=== PATIENT | male | born 1940 | race Caucasian/White ===

== ENCOUNTER 2024-06-17 16:19 | Emergency (ER) | payer MEDICARE, SELFPAY ==
--- NOTE | ~2024-06-17 | XR_ITS ---
EXAM: XR elbow RT min 3V DATE: 06/17/2024 18:49 HISTORY: fall, POSTERIOR LACERATION TO ELBOW . COMPARISON: None available. FINDINGS: Normal mineralization. No fracture or dislocation. No lytic or blastic lesion. Mild degene rative change at the elbow joint. Medial and lateral enthesopathy. No erosion or periosteal change. A nterior displacement of the anterior fat pad. IMPRESSION: Elbow joint effusion, which can accompany occult fractures, likely radial head in a patie nt of this age. Reviewed, dictated and finalized at location K. LOPMENT DIRECTOR IMPRESSION: Elbow joint effusion, which can accompany occult fractures, likely radial head in a patient of this age.
--- NOTE | ~2024-06-17 | CT_ITS ---
EXAMINATION: CT brain wo con DATE: 06/17/2024 18:54 INDICATION: Fall . TECHNIQUE: Computed tomography (CT) of the head was performed without intravenous contrast. The mA wa s adjusted according to patient size. Iterative reconstruction technique was employed. The dose-lengt h product was 681.00 mGy-cm. COMPARISON: 05/20/2024. FINDINGS: No acute intracranial hemorrhage or extra-axial fluid collection. No hydrocephalus, mass, or herniation. No acute ischemic infarct. Unremarkable dural venous sinus attenuation. No acute osseous abnormality. Minimal bilateral maxillary mucosal thickening, the remaining aerated spaces are clear. Moderate atrophy and chronic white matter change. Atherosclerotic intracranial calcification. Bilater al lens replacements. IMPRESSION: No acute intracranial process. Reviewed, dictated and finalized at location K. H PASTOR
--- NOTE | ~2024-06-17 | CT_ITS ---
EXAMINATION: CT facial & cervical spine wo DATE: 06/17/2024 18:54 INDICATION: Fall TECHNIQUE: Computed tomography (CT) of the maxillofacial region and cervical spine was performed with out intravenous contrast. Automated exposure control and iterative reconstruction technique were empl oyed. The dose-length product was 495.96 mGy-cm. COMPARISON: None FINDINGS: CERVICAL: Vertebral Body Alignment: Minimal grade 1 anterolisthesis at C4-5, presumably secondary to degenerati ve changes. Craniocervical and atlantoaxial alignment: Moderate degenerative change. Alignment intact. Osseous structures/fracture: No evidence of a lytic or blastic process in the visualized spine. No e vidence of acute fracture. Cervical soft tissues: The paraspinal soft tissues planes are maintained. Degenerative changes: Multilevel severe degenerative disc disease and moderate facet arthropathy. Sev ere bilateral neural foraminal narrowing at C3-4, and left-sided C4-5 neural foraminal narrowing, sec ondary to degenerative changes. No severe central canal narrowing. FACE: Soft Tissues: Moderate soft tissue swelling. Mild left frontal soft tissue swelling. Facial bones: Mildly comminuted and depressed nasal bone fractures. No lytic or blastic process. Eyes: Right lens replacement. The globes are intact. The soft tissue planes of the orbits are mainta ined. Paranasal Sinuses: Bilateral inferior maxillary mucosal thickening. Foreign Bodies: No radiopaque foreign bodies. Other Findings: None. IMPRESSION: No acute fracture or traumatic malalignment in the cervical spine. Mildly depressed nasal bone fractures. Reviewed, dictated and finalized at location K. OR WEB DEVELOPER
--- NOTE | ~2024-06-17 | CT_ITS ---
CT OF right elbow EXAMINATION: CT elbow RT wo con DATE: 06/17/2024 20:54 INDICATION: Evaluate for occult fracture. TECHNIQUE: Computed tomography (CT) of the right elbow was performed without intravenous contrast. Au tomated exposure control and iterative reconstruction technique were employed. The dose-length produc t was 500.99 mGy-cm. COMPARISON: X-ray right elbow, same date FINDINGS: Mild osteopenia. No fracture or dislocation. Minimal chronic appearing fragmentation along the latera l epicondyle. Mild subcutaneous edema along the posterior aspect of the elbow. The tip of the olecran on process is not completely included in the [id number], but there was no abnormality in the prior radiographs. No definite joint effusion. Prominent anterior fat pad, which is not displaced. IMPRESSION: No acute osseous finding in the right elbow. No definite joint effusion. The prior radiographic findings were likely related to a prominent anteri or fat pad and slight obliquity in the lateral view. Reviewed, dictated and finalized at location K. OPERATOR IMPRESSION: No acute osseous finding in the right elbow. No definite joint effusion. The prior radiographic findings were likely related to a prominent anterior fat pad and slight obliquity in the lateral view.
[2024-06-17 16:26] VITALS: BP 143/60; PULSE 70; RESP 20; TEMP 36.8; O2SAT 100
[2024-06-17 19:04] VITALS: BP 189/79; O2SAT 100
--- NOTE | 2024-06-17 19:08 | ED_ITS ---
HPI - Fall General Chief Complaint: Fall Stated Complaint: Fall - HI, right elbow pain Time Seen by Provider: 06/17/24 18:48 History of Present Illness HPI Narrative: 84-year-old male presents to the ED by son from [facility] for ground level fall that occurred earlier today. Patient's son and daughter at bedside and assist with history. States patient was in his bedroom when he tripped and fell. Patient states he did hit his head but did not lose consciousness. He is present with abrasions to his forehead, ecchymosis to the bridge of his nose, dried blood in his bilateral nares and a skin tear to his right elbow. He denies current pain at this time including neck pain, back pain, headache, vision changes, focal numbness or weakness or extremity injury. He is not anticoagulated. Tdap unknown. Related Data Allergies Allergy/AdvReac Type Severity Reaction Status Date / Time No Known Allergies Allergy Unknown Unverified 07/15/18 12:15 Review of Systems 2 Review of Systems: All systems reviewed & are unremarkable except as noted in HPI and below PMFSH Past Medical History Medical History Normal pressure hydrocephalus Surgical History Surgical History History of back surgery Social History Social History Living arrangements: long term Additional living arrangements comments: [facility] since end of April 2024; previously living independently at home Exam Narrative: GENERAL: Well-appearing, well-nourished, and in no acute distress. HEAD: Normocephalic. Two abrasions to the left forehead, no bleeding EYES: PERRLA and EOMI. ENT: mucous membranes moist. Ecchymosis to the bridge of the nose with no lacerations or abrasions. Dried blood in bilateral nares with no evidence of septal hematoma. No active epistaxis. No crepitus or deformity to the nose. Tenderness to the nose. Tenderness to orbits or remainder of facial bones NECK: no midline cervical spinous tenderness, step-offs or deformities BACK: no midline thoracolumbar spinous tenderness, step-offs or deformities CHEST: Clear to auscultation. No respiratory distress. no tenderness to chest wall HEART: Regular rate and rhythm. No murmur heard. Normal peripheral pulses. ABDOMEN: Soft, nontender, nondistended, normal active bowel sounds. EXTREMITIES: Normal range of motion. No edema. No tenderness bilateral upper lower extremities with full range of motion SKIN: 5 cm superficial skin tear to the right elbow with full active and passive range of motion of the elbow, no deep structures or foreign bodies visualized. Bleeding is controlled. Radial pulse 2 +. Sensation intact. NEURO: No focal deficits. Alert and oriented x3 Course Vital Signs Vital signs: Vital Signs Temperature 98.3 F 06/17/24 16:26 Pulse Rate 70 06/17/24 16:26 Respiratory Rate 20 06/17/24 16:26 Blood Pressure 143/60 H 06/17/24 16:26 Pulse Oximetry 100 06/17/24 16:26 Oxygen Delivery Room Air 06/17/24 16:26 Temperature 98.3 F 06/17/24 16:26 Pulse Rate 70 06/17/24 16:26 Respiratory Rate 20 06/17/24 16:26 Blood Pressure 143/60 H 06/17/24 16:26 Pulse Oximetry 100 06/17/24 16:26 Oxygen Delivery Room Air 06/17/24 16:26 MDM - Fall MDM Narrative Medical decision making narrative: 84-year-old male presents to the ED with son and daughter at bedside from [facility] for a ground level mechanical fall that occurred this afternoon. See HPI for further history. Vitals are stable. Patient is neurovascularly intact. He did hit his head but did not lose consciousness. He is not a nticoagulated. Exam is significant for the above. CT brain and cervical spine are unremarkable. CT facial bones show mildly depressed nasal bone fractures. There is no evidence of septal hematoma on exam. No active epistaxis. No evidence of open fracture. X-ray of the elbow shows an elbow joint effusion which can accompany occult fractures likely radial head in a patient of this age. CT obtained for further evaluation which shows no acute osseous finding in the right shoulder. There is no definitive joint effusion. The prior radiograph findings were likely related to prominent anterior fat pad and slight obliquity and lateral views. Patient and family updated on workup. Tdap updated. Skin tear to the elbow clean and closed with Steri-Strips with no complications. Patient will be discharged back to assisted living facility. ED return precautions provided. They are agreeable with the plan and verbalized understanding. Discharged in stable condition. Discharge Plan Discharge Clinical Impression: Skin tear Closed head injury Qualifiers: Encounter type: initial encounter Qualified Code(s): S09.90XA - Unspecified injury of head, initial encounter Fracture of nasal bone Qualifiers: Encounter type: initial encounter Fracture type: closed Qualified Code(s): S02.2XXA - Fracture of nasal bones, initial encounter for closed fracture Patient Disposition: NH Assisted/Asst Living Condition: Stable Instructions: Antibiotic Form, Nasal Fracture (ED), Head Injury (DC), Skin Tear (ED) Additional Instructions: Your evaluated in the emergency department for a fall. The CT of your head and neck are unremarkable. The imaging of your elbow shows no broken bones. Unfortunately you do have fractures of your nasal bones. Please follow-up with the Ear Nose and Throat doctor regarding this. Take Tylenol as directed on the bottle as needed for pain. Return to the emergency department if you develop redness around her skin tear, fever, drainage, Seizure-like activity, loss of consciousness or altered mental status,or other concerning symptoms. Follow-up/Referrals: Crystal,Sohan Reynolds MD [Primary Care Provider] - Nate Fowler MD [Physician] - 1 Day
[2024-06-17 19:16] VITALS: BP 184/82; O2SAT 100
[2024-06-17] MEDS: TETANUS,DIPHTHERIA,AC PERTUSSIS ADULT (0.5 ML) BOOSTRIX IM (19:43)
[2024-06-17 21:33] VITALS: BP 190/88; O2SAT 100
== END 2024-06-17 21:56 ==
PROVIDERS: Emergency Provider Physician Assistant; PCP Family Medicine
DX: S02.2XXA Fracture of nasal bones, initial encounter for closed fracture (principal); S51.011A Laceration without foreign body of right elbow, initial encounter; Z23 Encounter for immunization; G91.2 (Idiopathic) normal pressure hydrocephalus; W01.0XXA Fall on same level from slipping, tripping and stumbling without subsequent striking against object, initial encounter
CPT/HCPCS: 70450; 70486; 72125; 73080; 73200; 90471; 90715; 99284

== ENCOUNTER 2024-06-23 21:45 | Inpatient (IN) | payer MEDICARE, SELFPAY ==
--- NOTE | ~2024-06-23 | CT_ITS ---
EXAMINATION: CT abdomen pelvis wo con DATE: 06/24/2024 03:37 INDICATION: Hematuria. TECHNIQUE: Computed tomography (CT) of the abdomen and pelvis was performed without intravenous contr ast. Automated exposure control and iterative reconstruction technique were employed. The dose-length product was 342.37 mGy-cm. COMPARISON: CT abdomen and pelvis 05/20/2024 FINDINGS: The visualized portions of the lung bases demonstrate mild atelectasis. No pleural effusion . The heart size is normal. There are coronary artery calcifications. No pericardial or a fusion. The liver and spleen are normal. There are gallstones in the gallbladder, which is normal in size. The p ancreas, adrenal glands, and left kidney are normal. There is a 1.7 cm cyst in right kidney. There is no urolithiasis. The bladder is decompressed by a Gilmore catheter. Bladder wall thickening is noted. The prostate is mildly enlarged. There are brachytherapy seeds in the prostate. There is diverticulos is of the colon without evidence of diverticulitis. The appendix is normal. There is calcified athero sclerosis of the aorta and many of the other arteries. There are no pathologically enlarged lymph nod es. There is no free intraperitoneal fluid. There are bilateral inguinal hernias containing fat. Ther e is severe lumbar spondylosis. There is mild chronic anterior wedging of multiple vertebral bodies. Thoracic dextroscoliosis is noted. IMPRESSION: 1. Bladder wall thickening, which may be secondary to cystitis or chronic outlet obstruction. 2. Bilateral inguinal hernias containing fat. Reviewed, dictated and finalized at location A. RAL PROFESSIONAL IMPRESSION: 1. Bladder wall thickening, which may be secondary to cystitis or chronic outle t obstruction. 2. Bilateral inguinal hernias containing fat.
--- NOTE | ~2024-06-23 | US_ITS ---
EXAMINATION: US pelvic limited DATE: 06/27/2024 12:34 INDICATION: recurrent hematuria . TECHNIQUE: Grayscale and Doppler ultrasound images of the bladder were obtained. COMPARISON: None. FINDINGS: Directed examination of the urinary bladder reveals a Gilmore catheter balloon in good positi on. The clip bladder is collapsed around the Gilmore catheter. No intraluminal contents identified. Baltazar dder wall measures 3 mm. IMPRESSION: Urinary bladder decompressed by Gilmore catheter, which limits evaluation. Consider repeat examination with the Gilmore clamped. Reviewed, dictated and finalized at location K. ENGINEER IMPRESSION: Urinary bladder decompressed by Gilmore catheter, which limits evaluation. Consid er repeat examination with the Gilmore clamped.
--- NOTE | ~2024-06-23 | US_ITS ---
US pelvic limited 06/28/2024 12:52 Indication: Bladder outlet evaluation. Procedure: High-resolution ultrasound of the pelvis using transabdominal technique Comparison: No prior studies for comparison. Findings: There is a Gilmore catheter present in the bladder. Bladder is somewhat decompressed although bladder wall is mildly prominent measuring 4 mm. No focal bladder mass or debris is visualized. Impression: 1: Incompletely distended bladder containing Gilmore catheter. Cannot exclude bladder wall thickening. No focal bladder mass or significant debris. Reviewed, dictated and finalized at location B. TE ADMINISTRATOR Impression: 1: Incompletely distended bladder containing Gilmore catheter. Cannot exclude chauncey dder wall thickening. No focal bladder mass or significant debris.
[2024-06-23 21:46] VITALS: BP 162/58; PULSE 73; RESP 15; TEMP 37.3; O2SAT 100
[2024-06-24 03:29] LABS: Basophils Absolute Auto 0.1 K/mm3 (0.0-0.1); Basophils Percent Auto 0.8 % (0.2-1.2); Eosinophils Absolute Auto 0.3 K/mm3 (0-0.3); Eosinophils Percent Auto 4.8 % (0-4.4); Hematocrit 32.1 % (42.0-52.0); Hemoglobin 10.7 g/dL (14.0-18.0); Immature Granulocyte Absolute 0.01 K/mm3 (0.00-0.031); Immature Granulocyte Percent A 0.2 % (0-0.5); Lymphocytes Percent Auto 19.3 % (18.3-44.2); Mean Corpuscular HGB Conc 33.3 g/dl (32-36); Mean Corpuscular Volume 96.1 fl (80-100); Mean Platelet Volume 9.1 fl (7.4-10.4); Monocytes Absolute Auto 0.5 K/mm3 (0.1-0.6); Monocytes Percent Auto 8.4 % (2.6-8.5); Neutrophils Absolute Auto 4.1 K/mm3 (1.3-6.7); Neutrophils Percent Auto 66.5 % (45.5-73.1); Platelet Count Result 189 k/mm3 (150-375); Red Blood Count 3.34 M/mm3 (4.6-6.20); Red Cell Distribution Width 12.8 % (11.5-14.5); White Blood Count 6.2 K/mm3 (4.5-10.0)
[2024-06-24 03:39] LABS: Alanine Aminotransferase 22 U/L (6-50); Alkaline Phosphatase 58 U/L (38-126); Anion Gap 7 mmol/L (4-12); Aspartate Amino Transferase 32 U/L (17-59); Bilirubin,Total 0.6 mg/dL (0.2-1.3); Blood Urea Nitrogen 15 mg/dL (9-20); Carbon Dioxide 27 mmol/L (22-30); Chloride 101 mmol/L (98-107); Estimated CRCL calculation 50 ml/min; Estimated Glomerular Filt Rate > 60; Glucose 109 mg/dL (65-110); Potassium 3.6 mmol/L (3.4-5.0); Sodium 135 mmol/L (137-145)
[2024-06-24 03:42] LABS: Bacteria Urine Rare /hpf; Need Manual Microscopic Reviewed; Non Pathogenic Casts 0-2; RBC Urine >100 /hpf (0-2); Squamous Epithelial Cell Urine Many /hpf (Few); WBC Urine >100 /hpf (0-3)
[2024-06-24 03:43] LABS: Add Urine Microscopic? YES; Appearance Urine Turbid (Clear); Bilirubin Urine 1+ (Negative); Blood Urine 3+ (Negative); Color Urine Red (Yellow); Glucose Urine UA Negative (Negative); Ketones Urine Negative (Negative); Leukocyte Esterase Ur 3+ LEU/UL (Negative); Nitrate Urine Positive (Negative); Protein Urine 3+ mg/dL (Negative); Specific Grav Ur 1.012 (1.001-1.035); Urobilinogen Urine 0.2 mg/dL (<2.0); pH Urine 6.5 (5.0-9.0)
[2024-06-24 03:45] LABS: INR 1.1; Prothrombin Time 14.5 Seconds (11.1-14.7)
[2024-06-24 03:46] LABS: Partial Thromboplastin Time 31.5 Seconds (22.3-36.8)
[2024-06-24] MEDS: WATER FOR IRRIGATION, STERILE 500 ML BOTTLE ×2 (04:41→05:31)
--- NOTE | 2024-06-24 05:34 | ED.GENADULT ---
HPI - General Adult General Chief complaint: Urogenital-Male Stated complaint: hematuria, frequency Time Seen by Provider: 06/24/24 02:51 History of Present Illness HPI narrative: Patient is 84-year-old gentleman who presents emergency department chief complaint of hematuria. Patient reports that he started having urinary frequency recently and then started having blood in his urine the patient reports was bright red blood reports no to minimal clots present the patient reports that he is still able to urinate but has not issues with incontinence. Related Data Allergies Allergy/AdvReac Type Severity Reaction Status Date / Time No Known Allergies Allergy Unknown Verified 06/23/24 21:46 Review of Systems Review of Systems: A 10 system review of systems was completed on the patient and is negative except for what is stated in the HPI. Nursing and ancillary documentation was reviewed. [facility] Past Medical History Medical History Normal pressure hydrocephalus Surgical History Surgical History History of back surgery Social History Social History Living arrangements: [facility] Additional living arrangements comments: [facility] since end of April 2024; previously living independently at home Exam Narrative: GENERAL: Well-appearing, well-nourished, and in no acute distress. HEAD: Normocephalic, atraumatic. EYES: PERRLA and EOMI. ENT: Nares clear, no rhinorrhea or epistaxis. Mucous membranes moist. NECK: Supple. CHEST: Clear to auscultation. No respiratory distress. HEART: Regular rate and rhythm. No murmur heard. Normal peripheral pulses. ABDOMEN: Soft, nontender, nondistended, normal active bowel sounds. : Normal external male genitalia no signs of trauma EXTREMITIES: Normal range of motion. No edema. SKIN: Warm, dry, no rash. NEURO: No focal deficits. Alert and oriented x3. PSYCH: Normal mood and affect. Course Vital Signs Vital signs: Vital Signs Temperature 37.3 C 06/23/24 21:46 Pulse Rate 73 06/23/24 21:46 Respiratory Rate 15 06/23/24 21:46 Blood Pressure 162/58 H 06/23/24 21:46 Pulse Oximetry 100 06/23/24 21:46 Oxygen Delivery Room Air 06/23/24 21:46 Temperature 37.3 C 06/23/24 21:46 Pulse Rate 73 06/23/24 21:46 Respiratory Rate 15 06/23/24 21:46 Blood Pressure 162/58 H 06/23/24 21:46 Pulse Oximetry 100 06/23/24 21:46 Oxygen Delivery Room Air 06/23/24 21:46 Medical Decision Making MDM Narrative Medical decision making narrative: Differential diagnosis includes hematuria, UTI, CT scan showed no evidence of large clot the bladder. There was evidence thickening of the bladder wall consistent cystitis Urinalysis showed greater than 100 whites and greater than 100 reds And initial Gilmore was placed and was irrigated the patient still having for punch colored urine with small clots The case was discussed with urology on-call who recommended CBI and the patient will be admitted to the hospitalist service with Urology consult. Patient was also started on Rocephin since there was greater than 100 white blood cells in the urine. Vital Signs Vital Signs: Vital Signs Temperature 37.3 C 06/23/24 21:46 Pulse Rate 73 06/23/24 21:46 Respiratory Rate 15 06/23/24 21:46 Blood Pressure 162/58 H 06/23/24 21:46 Pulse Oximetry 100 06/23/24 21:46 Oxygen Delivery Room Air 06/23/24 21:46 Temperature 37.3 C 06/23/24 21:46 Pulse Rate 73 06/23/24 21:46 Respiratory Rate 15 06/23/24 21:46 Blood Pressure 162/58 H 06/23/24 21:46 Pulse Oximetry 100 06/23/24 21:46 Oxygen Delivery Room Air 06/23/24 21:46 Lab Data 06/24/24 03:23 06/24/24 03:23 Labs: Lab Results 06/24/24 Range/Units 03:23 WBC 6.2 (4.5-10.0) K/mm3 RBC 3.34 L (4.6-6.20) M/mm3 Hgb 10.7 L (14.0-18.0) g/dL Hct 32.1 L (42.0-52.0) % MCV 96.1 (80-100) fl MCH 32.0 (26-34) pg MCHC 33.3 (32-36) g/dl RDW 12.8 (11.5-14.5) % Plt Count 189 (150-375) k/mm3 MPV 9.1 (7.4-10.4) fl Immature Gran % (Auto) 0.2 (0-0.5) % Neut % (Auto) 66.5 (45.5-73.1) % Lymph % (Auto) 19.3 (18.3-44.2) % [place] % (Auto) 8.4 (2.6-8.5) % Eos % (Auto) 4.8 H (0-4.4) % Baso % (Auto) 0.8 (0.2-1.2) % Lymph # (Auto) 1.20 (0.9-3.2) K/mm3 [place] # (Auto) 0.5 (0.1-0.6) K/mm3 Eos # (Auto) 0.3 (0-0.3) K/mm3 Baso # (Auto) 0.1 (0.0-0.1) K/mm3 Abs Immat Gran (auto) 0.01 (0.00-0.031) K/mm3 Absolute Neuts (auto) 4.1 (1.3-6.7) K/mm3 Absolute Nucleated RBC 0.000 (0.0-0.012) K/mm3 Nucleated RBC % 0.0 (0.0-0.2) % PT 14.5 (11.1-14.7) Seconds INR 1.1 APTT 31.5 (22.3-36.8) Seconds Sodium 135 L (137-145) mmol/L Potassium 3.6 (3.4-5.0) mmol/L Chloride 101 (98-107) mmol/L Carbon Dioxide 27 (22-30) mmol/L Anion Gap 7 (4-12) mmol/L BUN 15 D (9-20) mg/dL Creatinine 1.00 (0.7-1.3) mg/dL Estim Creat Clear Calc 50 ml/min Estimated GFR > 60 (59 - ) Glucose 109 (65-110) mg/dL Calcium 9.0 (8.4-10.2) mg/dL Total Bilirubin 0.6 (0.2-1.3) mg/dL AST 32 (17-59) U/L ALT 22 (6-50) U/L Alkaline Phosphatase 58 (38-126) U/L Total Protein 7.0 (6.3-8.2) g/dL Albumin 4.0 (3.5-5.1) g/dL Urine Color Red H (Yellow) Urine Appearance Turbid H (Clear) Urine pH 6.5 (5.0-9.0) Ur Specific [place] 1.012 (1.001-1.035) Urine Protein 3+ H (Negative) mg/dL Urine Glucose (UA) Negative (Negative) mg/dL Urine Ketones Negative (Negative) mg/dL Ur Blood (Man) 3+ H (Negative) Urine Nitrate Positive H (Negative) Urine Bilirubin 1+ H (Negative) Urine Urobilinogen 0.2 (<2.0) mg/dL Add Ur Microanalysis Reviewed Leukocyte Esterase Rfl 3+ H (Negative) NEAL/UL Urine RBC >100 H (0-2) /hpf Urine WBC >100 H (0-3) /hpf Ur Squamous Epith Cells Many H (Few) /hpf Urine Bacteria Rare /hpf Urine Casts 0-2 Discharge Plan Discharge Clinical Impression: Hematuria, Urinary tract infection Patient Disposition: Still a Patient Condition: Stable Follow-up/Referrals: PHYSICIAN NOT ON STAFF,NONSTAFF [Primary Care Provider] - Time of Disposition: 05:43
[2024-06-24 06:09] VITALS: BP 142/90; PULSE 80; RESP 15; O2SAT 100
[2024-06-24] MEDS: MORPHINE SULFATE (*CRX) 2 MG/ML INJ IV PUSH ×2 (06:19→15:37)
[2024-06-24 07:06] LABS: Hematocrit 33.2 % (42.0-52.0); Hemoglobin 11.1 g/dL (14.0-18.0)
[2024-06-24 07:28] VITALS: BP 182/91; PULSE 83; RESP 20; TEMP 36.6; O2SAT 98
[2024-06-24 08:45] VITALS: BP 198/70; PULSE 89; RESP 16; TEMP 36.8; O2SAT 100
[2024-06-24 08:49] VITALS: BMI 22.1
--- NOTE | 2024-06-24 08:49 | P.HP_ITS ---
H&P: HPI History of Present Illness Date/Time: 06/24/24 08:49 Chief Complaint: Hematuria Narrative: This is an 84 year old male with a significant past medical history of normal pressure hydrocephalus, prostate cancer hyperlipidemia, anxiety, insomnia, sleep apnea, history of rheumatic fever without heart involvement, asthma, GERD, osteoporosis, arthritis, hypertension who presented to the hospital from [facility] with report of hematuria. Most of presenting illness was obtained from the medical record as patient is non-contributory and son who is at bedside is not a good historian for his medical information. According to chart it was reported that he was having urinary frequency and then started noticing blood in his urine. No other information was provided. Work up in the hospital included an abdomen/pelvis CT without contrast which revealed bladder wall thickening, which may be cystitis versus chronic outlet obstruction, bilateral inguinal hernias containing fat. Initial labs revealed a normal WBC 6.2, Hgb 10.7, Na+ 135, otherwise unremarkable. UA shown red colored urine with a turbid appearance, 3+ urine protein, 3+ urine blood, positive nitrate, 1+ urine bilirubin, 3+ leukocytes, >100 urine RBC, > 100 urine WBC, many urine squamous epithelial cells, rare bacteria. Urine culture was obtained and pending. Patient Had thompson catheter placed and flushed with small blood clots returning, given Morphine, and started on Rocephin while in the ER. Urology consulted. Review of Systems Review of Systems: ROS unobtainable: Yes unobtainable due to mental status PMFSH Past Medical History Medical History Anxiety Arthritis Asthma Dementia GERD (gastroesophageal reflux disease) Hyperlipidemia Hypertension Insomnia Normal pressure hydrocephalus Osteoporosis Prostate cancer Rheumatic fever without heart involvement Sleep apnea Surgical History Surgical History History of back surgery Social History Social History Smoking status: Never smoker Alcohol intake: never Substance use: never Substance use type: does not use Do You Feel Safe in your Home?: Yes Lack of Transportation: No Lack of Food: Never True Current Housing: I Have Housing Concerned About Future Housing: No Difficulty Paying Gas/Electric Bills: No Difficulty Paying for Meds: No Currently Unemployed: No Education: High School Diploma/GED Difficulty w/ Childcare or Family Care: Decline to Answer Living arrangements: long term Additional living arrangements comments: [facility] since end of April 2024; previously living independently at home Spiritual care concerns: No Meds Home Medications and Allergies Home Medications Medication Instructions Recorded Confirmed Type albuterol sulfate 90 mcg/actuation 2 puff inhalation Q4H PRN Wheezing 06/24/24 06/24/24 History aerosol inhaler atorvastatin 20 mg tablet 20 mg PO HS 06/24/24 06/24/24 History donepezil 10 mg tablet 10 mg PO HS 06/24/24 06/24/24 History escitalopram oxalate 10 mg tablet 10 mg PO DAILY 06/24/24 06/24/24 History finasteride 5 mg tablet 5 mg PO DAILY 06/24/24 06/24/24 History fluticasone furoate 100 1 inh inhalation DAILY 06/24/24 06/24/24 History mcg-vilanterol 25 mcg/dose inhalation powder (Breo Ellipta) loperamide 2 mg capsule 2 mg PO Q6H PRN Diarrhea 06/24/24 06/24/24 History multivitamin with minerals-folic 1 tablet PO DAILY 06/24/24 06/24/24 History acid 0.4 mg tablet omeprazole 20 mg capsule,delayed 20 mg PO DAILY 06/24/24 06/24/24 History release tamsulosin 0.4 mg capsule 0.4 mg PO DAILY 06/24/24 06/24/24 History trazodone 50 mg tablet 50 mg PO HS 06/24/24 06/24/24 History triamcinolone acetonide 0.1 % 1 applic topical DAILY 06/24/24 06/24/24 History topical cream Allergies Allergy/AdvReac Type Severity Reaction Status Date / Time No Known Allergies Allergy Unknown Verified 06/23/24 21:46 Vital Signs Vital Signs - 24 hr 06/23/24 21:46 06/24/24 06:09 06/24/24 07:28 Temperature 99.2 F 97.9 F Pulse Rate 73 80 83 Respiratory Rate 15 15 20 Blood Pressure 162/58 H 142/90 H 182/91 H Pulse Oximetry 100 100 98 Oxygen Delivery Room Air Exam Narrative: General: In no acute distress, well nourished Head: atraumatic, no encephalopathy Eyes:PERRLA, sclera clear, ecchymosis noted below both eyes ENT: moist mucous membranes, nasal passages clear Neck: supple, no JVD, no adenopathy, trachea midline Cardiac: Normal S1 and S2. No murmur, gallops or friction rubs, peripheral pulses intact. Respiratory: Lungs clear to auscultation, no adventitious lung sounds, currently on room air Gastrointestinal: soft, non-distended, non-tender, normoactive bowel sounds. : thompson catheter in place draining pink tinged urine, no clots seen in the bag Extremities: moves all extremities well, no edema, good ROM, strength 5/5 Skin: clean, dry, intact. No wounds or lesions. Neuro: Alert and oriented x2, confused with sitter at bedside, no obvious neuro defects. Psych: normal mood, normal affect, interactive H&P: Results Labs Labs: Short CBC 06/24/24 06/24/24 Range/Units 03:23 06:57 WBC 6.2 (4.5-10.0) K/mm3 Hgb 10.7 L 11.1 L (14.0-18.0) g/dL Hct 32.1 L 33.2 L (42.0-52.0) % Plt Count 189 (150-375) k/mm3 BMP 06/24/24 03:23 Sodium 135 L Potassium 3.6 Chloride 101 Carbon Dioxide 27 BUN 15 D Creatinine 1.00 Glucose 109 Calcium 9.0 Liver Function 06/24/24 Range/Units 03:23 Total Bilirubin 0.6 (0.2-1.3) mg/dL AST 32 (17-59) U/L ALT 22 (6-50) U/L Alkaline Phosphatase 58 (38-126) U/L Albumin 4.0 (3.5-5.1) g/dL Urine 06/24/24 Range/Units 03:23 Urine Color Red H (Yellow) Urine Appearance Turbid H (Clear) Urine pH 6.5 (5.0-9.0) Ur Specific [place] 1.012 (1.001-1.035) Urine Protein 3+ H (Negative) mg/dL Urine Glucose (UA) Negative (Negative) mg/dL Imaging Abdomen/Pelvis CT: Radiologist's impression: EXAMINATION: CT abdomen pelvis wo con DATE: 06/24/2024 03:37 INDICATION: Hematuria. TECHNIQUE: Computed tomography (CT) of the abdomen and pelvis was performed without intravenous contrast. Automated exposure control and iterative reconstruction technique were employed. The dose-length product was 342.37 mGy- cm. COMPARISON: CT abdomen and pelvis 05/20/2024 FINDINGS: The visualized portions of the lung bases demonstrate mild atelectasis. No pleural effusion. The heart size is normal. There are coronary artery calcifications. No pericardial or a fusion. The liver and spleen are normal. There are gallstones in the gallbladder, which is normal in size. The pancreas, adrenal glands, and left kidney are normal. There is a 1.7 cm cyst in right kidney. There is no urolithiasis. The bladder is decompressed by a Thompson catheter. Bladder wall thickening is noted. The prostate is mildly enlarged. There are brachytherapy seeds in the prostate. There is diverticulosis of the colon without evidence of diverticulitis. The appendix is normal. There is calcified atherosclerosis of the aorta and many of the other arteries. There are no pathologically enlarged lymph nodes. There is no free intraperitoneal fluid. There are bilateral inguinal hernias containing fat. There is severe lumbar spondylosis. There is mild chronic anterior wedging of multiple vertebral bodies. Thoracic dextroscoliosis is noted. IMPRESSION: 1. Bladder wall thickening, which may be secondary to cystitis or chronic outlet obstruction. 2. Bilateral inguinal hernias containing fat. Reviewed, dictated and finalized at location [facility]. [facility] Assessment and Plan Assessment and plan (1) Hematuria: Code(s): R31.9 - Hematuria, unspecified Status: Acute Assessment and Plan: * Reporting bright red blood in urine. * UA Showing red turbid urine with 3+ urine protein, 3+ urine blood, positive nitrate, 1+ bilirubin, 3+ leukocyte, greater than 100 urine RBC, greater than 100 urine WBC, many urine squamous epithelial cells seen, rare urine bacteria. * Urine culture was obtained and then * Thompson catheter placed and irrigated while in the ER was small blood clots draining * urology consulted (2) Urinary tract infection: Code(s): N39.0 - Urinary tract infection, site not specified Status: Acute Assessment and Plan: * UA Showing red turbid urine with 3+ urine protein, 3+ urine blood, positive nitrate, 1+ bilirubin, 3+ leukocyte, greater than 100 urine RBC, greater than 100 urine WBC, many urine squamous epithelial cells seen, rare urine bacteria. * urine culture pending * white blood cell count 6.2 * continue Rocephin (3) Normal pressure hydrocephalus: Code(s): G91.2 - (Idiopathic) normal pressure hydrocephalus Status: Acute Assessment and Plan: of note Quality VTE Prophylaxis VTE prophylaxis: mechanical ordered Hospitalist MIPS Advance Care Plan I have confirmed that the patient's Advanced Care Plan is present, code status is documented, or surrogate decision maker is listed in patient medical record.: Yes Medication Reconciliation I have utilized all available resources to obtain, update and review the patients current medications (includes all prescriptions, OTC, herbals, cannabis, and nutritional supplements).: Yes
[2024-06-24 09:38] VITALS: O2SAT 98
[2024-06-24 11:18] LABS: Hematocrit 33.9 % (42.0-52.0); Hemoglobin 11.4 g/dL (14.0-18.0)
[2024-06-24 11:32] LABS: Hemoglobin A1C 5.5 % (<5.7)
--- NOTE | 2024-06-24 12:17 | WPDURCON ---
Assessment and Plan Assessment and plan (1) Urinary tract infection: Code(s): N39.0 - Urinary tract infection, site not specified Status: Acute Assessment and Plan: 1. Agree with hospital medicine admission. 2. Agree with honey elizondo to C&S. 3. Maintain catheter, given son's concern for worsening LUTS in setting of dementia, he may benefit from chronic indwelling catheter. This can be determined as an outpatient. Urology Consult Note HPI Date Seen: 06/24/24 Requesting Physician: Judy Arreaga APRN Primary Care Provider: PHYSICIAN NOT ON STAFF Consult Narrative Narrative: Gulshan Johnston is a 84 year old male admitted to Hospital Medicine Service for UTI. He presented to the ER yeterday evening with hematuria. A 3 way CBI catheter was placed and no significant clot noted either after catheter placement or on CT. CBI is currently off with a catheter plug in the inflow channel. He is confused this morning, however his son says he has significant dementia and is at his baseline. His son reports he has been having increasing frequency and urgency with significant urge incontinence and has had catheters placed at his facility. He was seen 06/06/24 by our MACHINE ADJUSTER LEADER Jordyn Doser, and was started on augmentin at that time, however his culture was negative. He has been on tamsulosin and finasteride. Review of Systems Review of Systems: ROS unobtainable: Yes unobtainable due to mental status (Dementia) [facility] Past Medical History Medical History Normal pressure hydrocephalus Surgical History Surgical History History of back surgery Social History Social History Smoking status: Never smoker Alcohol intake: never Substance use: never Substance use type: does not use Do You Feel Safe in your Home?: Yes Lack of Transportation: No Lack of Food: Never True Current Housing: I Have Housing Concerned About Future Housing: No Difficulty Paying Gas/Electric Bills: No Difficulty Paying for Meds: No Currently Unemployed: No Education: High School Diploma/GED Difficulty w/ Childcare or Family Care: Decline to Answer Living arrangements: fpc Additional living arrangements comments: [facility] since end of April 2024; previously living independently at home Spiritual care concerns: No Meds Home Medications and Allergies Allergies Allergy/AdvReac Type Severity Reaction Status Date / Time No Known Allergies Allergy Unknown Verified 06/23/24 21:46 Vital Signs Vital Signs - 24 hr 06/23/24 21:46 06/24/24 06:09 06/24/24 07:28 Temperature 99.2 F 97.9 F Pulse Rate 73 80 83 Respiratory Rate 15 15 20 Blood Pressure 162/58 H 142/90 H 182/91 H Pulse Oximetry 100 100 98 Oxygen Delivery Room Air 06/24/24 09:38 06/24/24 08:45 Temperature 98.3 F Pulse Rate 89 Respiratory Rate 16 Blood Pressure 198/70 H Pulse Oximetry 98 100 Oxygen Delivery Room Air Exam Narrative: NAD, A&Ox1 RRR EWOB S/NT/ND 20F CBI cath in place, plug in inflow, clear yellow urine in catheter tubing. Results Labs 06/24/24 11:04 06/24/24 03:23 Labs: Short CBC 06/24/24 06/24/24 06/24/24 Range/Units 03:23 06:57 11:04 WBC 6.2 (4.5-10.0) K/mm3 Hgb 10.7 L 11.1 L 11.4 L (14.0-18.0) g/dL Hct 32.1 L 33.2 L 33.9 L (42.0-52.0) % Plt Count 189 (150-375) k/mm3 BMP 06/24/24 03:23 Sodium 135 L Potassium 3.6 Chloride 101 Carbon Dioxide 27 BUN 15 D Creatinine 1.00 Glucose 109 Calcium 9.0 Liver Function 06/24/24 Range/Units 03:23 Total Bilirubin 0.6 (0.2-1.3) mg/dL AST 32 (17-59) U/L ALT 22 (6-50) U/L Alkaline Phosphatase 58 (38-126) U/L Albumin 4.0 (3.5-5.1) g/dL Urine 06/24/24 Range/Units 03:23 Urine Color Red H (Yellow) Urine Appearance Turbid H (Clear) Urine pH 6.5 (5.0-9.0) Ur Specific [place] 1.012 (1.001-1.035) Urine Protein 3+ H (Negative) mg/dL Urine Glucose (UA) Negative (Negative) mg/dL
[2024-06-24 16:00] VITALS: BP 188/71; PULSE 85; RESP 18; TEMP 37.4; O2SAT 98
[2024-06-24 18:08] LABS: Hematocrit 32.3 % (42.0-52.0); Hemoglobin 11.2 g/dL (14.0-18.0)
[2024-06-24] MEDS: LOSARTAN POTASSIUM 25 MG TABLET PO (18:15)
--- NOTE | 2024-06-24 18:35 | PC.NURSE ---
This patient, Gulshan Johnston, was admitted to 3 [facility] Surg Room 314-2 at 830 . Patient/family oriented to hospital policies and general routines including ID bracelet, bed and alarms, visiting hours, pain management, procedures, bathroom and other care routines, personal items, smoking policy, room service/diet, and visiting hours. Information on how to activate the Rapid Response Team has been discussed. Patient/Family are encouraged to report perceived risks to care and to ask questions if they do not understand what they are told or what they should do.
[2024-06-24 20:15] VITALS: BP 147/91; PULSE 90; RESP 18; TEMP 37.2
[2024-06-24] MEDS: ATORVASTATIN 20 MG TABLET PO (20:55)
[2024-06-24] MEDS: traZODone HCL 50 MG TABLET PO (20:55)
[2024-06-24] MEDS: DONEPEZIL HCL 10 MG TABLET PO (20:55)
[2024-06-25] VITALS: BP 142/88; PULSE 75; RESP 18; TEMP 37.8; O2SAT 95
[2024-06-25 01:02] LABS: Hematocrit 32.6 % (42.0-52.0); Hemoglobin 11.2 g/dL (14.0-18.0)
[2024-06-25 06:37] VITALS: BP 157/82; PULSE 72; RESP 18; TEMP 37.6; O2SAT 97
--- NOTE | 2024-06-25 07:31 | P.PNIM_ITS ---
Progress Note: A&P Assessment and Plan (1) Hematuria: Code(s): R31.9 - Hematuria, unspecified Status: Acute Assessment and Plan: * Reporting bright red blood in urine. * UA Showing red turbid urine with 3+ urine protein, 3+ urine blood, positive nitrate, 1+ bilirubin, 3+ leukocyte, greater than 100 urine RBC, greater than 100 urine WBC, many urine squamous epithelial cells seen, rare urine bacteria. * Urine culture was obtained and then * Thompson catheter placed and irrigated while in the ER was small blood clots draining * urology consulted (2) Urinary tract infection: Code(s): N39.0 - Urinary tract infection, site not specified Status: Acute Assessment and Plan: * UA Showing red turbid urine with 3+ urine protein, 3+ urine blood, positive nitrate, 1+ bilirubin, 3+ leukocyte, greater than 100 urine RBC, greater than 100 urine WBC, many urine squamous epithelial cells seen, rare urine bacteria. * urine culture showing Klebsiella pneumoniae on preliminary read * white blood cell count 6.2 * continue Rocephin until final urine culture results (3) Normal pressure hydrocephalus: Code(s): G91.2 - (Idiopathic) normal pressure hydrocephalus Status: Acute Assessment and Plan: of note Time Spent With Patient Time with patient: 15 - 25 minutes Subjective Date/time seen: 06/25/24 07:31 Interval history: Interval history: This is an 84 year old male with a significant past medical history of normal pressure hydrocephalus, prostate cancer hyperlipidemia, anxiety, insomnia, sleep apnea, history of rheumatic fever without heart involvement, asthma, GERD, osteoporosis, arthritis, hypertension who presented to the hospital from [facility] with report of hematuria. Most of presenting i llness was obtained from the medical record as patient is non-contributory and son who is at bedside is not a good historian for his medical information. According to chart it was reported that he was having urinary frequency and then started noticing blood in his urine. No other information was provided. Work up in the hospital included an abdomen/pelvis CT without contrast which revealed bladder wall thickening, which may be cystitis versus chronic outlet obstruction, bilateral inguinal hernias containing fat. Initial labs revealed a normal WBC 6.2, Hgb 10.7, Na+ 135, otherwise unremarkable. UA shown red colored urine with a turbid appearance, 3+ urine protein, 3+ urine blood, positive nitrate, 1+ urine bilirubin, 3+ leukocytes, >100 urine RBC, > 100 urine WBC, many urine squamous epithelial cells, rare bacteria. Urine culture was obtained and pending. Patient Had thompson catheter placed and flushed with small blood clots returning, given Morphine, and started on Rocephin while in the ER. Urology consulted. Subjective: Patient denies any new complaints today. Sitter is at the bedside. Labs And cultures were reviewed. Review of Systems Review of Systems: All systems reviewed & are unremarkable except as noted in HPI and below Constitutional: Constitutional: Reports as per HPI and Reports no additional constitutional complaints Eyes: Eyes: Reports as per HPI and Reports no additional eye complaints ENT: Reports system reviewed and no additional complaints, except as documented and Reports as per HPI Cardiovascular: Cardiovascular: Reports as per HPI and Reports no additional cardiovascular complaints Respiratory: Respiratory: Reports as per HPI and Reports no additional respiratory complaints Gastrointestinal: Gastrointestinal: Reports as per HPI and Reports no additional gastrointestinal complaints Genitourinary: Genitourinary: Reports no additional male genitourinary complaints and Reports as per HPI Musculoskeletal: Musculoskeletal: Reports no additional musculoskeletal complaints and Reports as per HPI Integumentary/Breasts: Skin/Breast: Reports system reviewed and no additional complaints, except as docu and Reports as per HPI Neurologic: Reports system reviewed and no additional complaints, except as documented and Reports as per HPI Psychiatric: Psychiatric: Reports no additional psychiatric complaints and Reports as per HPI Exam Narrative: General: In no acute distress, well nourished Cardiac: Normal S1 and S2. No murmur, gallops or friction rubs, peripheral pulses intact. Respiratory: Lungs clear to auscultation, no adventitious lung sounds, currently on room air Gastrointestinal: soft, non-distended, non-tender, normoactive bowel sounds. : thompson catheter draining clear rey urine Neuro: Alert and oriented x2, confused with sitter at bedside Objective Data Vital Signs Vital Signs: Vital Signs - 24 hr 06/24/24 09:38 06/24/24 08:45 06/24/24 16:00 Temperature 98.3 F 99.4 F Pulse Rate 89 85 Respiratory Rate 16 18 Blood Pressure 198/70 H 188/71 H Pulse Oximetry 98 100 98 Oxygen Delivery Room Air 06/24/24 20:15 06/25/24 00:00 06/25/24 06:37 Temperature 99.0 F 100.0 F H 99.7 F H Pulse Rate 90 75 72 Respiratory Rate 18 18 18 Blood Pressure 147/91 H 142/88 H 157/82 H Pulse Oximetry 95 97 Oxygen Delivery Intake/Output Intake/Output: Intake & Output 06/22/24 06/23/24 06/24/24 06/25/24 23:59 23:59 23:59 23:59 Intake Total 50 Output Total 3800 1200 Balance -3750 -1200 Meds/Results Medications: Active Medications Generic Name Dose Route Start Last Admin Trade Name Freq PRN Reason Stop Dose Admin Acetaminophen 650 mg 06/24/24 09:03 Acetaminophen 325 Mg Tablet PO Q4H PRN Mild Pain (1-3) or Fever Hydrocodone Bitart/Acetaminophen 1 tab 06/24/24 09:03 Hydrocodone/Acetaminophen (*Crx) 5-325 Mg Tablet PO Q4H PRN Moderate Pain (4-6) Atorvastatin Calcium 20 mg 06/24/24 21:00 06/24/24 20:55 Atorvastatin 20 Mg Tablet PO 20 mg HS MICHAELLE Administration Donepezil HCl 10 mg 06/24/24 21:00 06/24/24 20:55 Donepezil Hcl 10 Mg Tablet PO 10 mg HS MICHAELLE Administration Escitalopram Oxalate 10 mg 06/25/24 09:00 Escitalopram Oxalate 10 Mg Tablet PO DAILY MICHAELLE Finasteride 5 mg 06/25/24 09:00 Finasteride 5 Mg Tablet PO DAILY MICHAELLE Fluticasone Propionate 2 spray 06/25/24 09:00 Fluticasone Propionate 0.05% Na Spr 16 Gm Btl (*Bkc) NASAL DAILY MICHAELLE Hydralazine HCl 10 mg 06/24/24 17:23 Hydralazine Hcl 20 Mg/Ml Vial IV PUSH Q8H PRN Blood Pressure - High Ceftriaxone Sodium 1 gm in 50 mls @ 100 mls/hr 06/25/24 06:00 06/25/24 06:28 Rocephin 1 Gm/Ns 50 Ml IVPB 100 mls/hr Q24H MICHAELLE Administration Losartan Potassium 25 mg 06/24/24 17:25 06/24/24 18:15 Losartan Potassium 25 Mg Tablet PO 25 mg DAILY MICHAELLE Administration Morphine Sulfate 2 mg 06/24/24 09:03 06/24/24 15:37 Morphine Sulfate (*Crx) 2 Mg/Ml Inj IV PUSH 2 mg Q4H PRN Administration Pain Rated 7-10 Multivitamins/Calcium 1 tablet 06/25/24 09:00 Therapeutic Multivitamins/Minerals Tab (*Bkc) PO DAILY [facility] Ondansetron HCl 4 mg 06/24/24 09:03 Ondansetron Inj 4 Mg/2 Ml Vial IV PUSH Q6H PRN Nausea And Vomiting Tamsulosin HCl 0.4 mg 06/25/24 09:00 Tamsulosin Hcl 0.4 Mg Capsule PO DAILY [facility] Trazodone HCl 50 mg 06/24/24 21:00 06/24/24 20:55 Trazodone Hcl 50 Mg Tablet PO 50 mg HS [facility] Administration Vitamin B Complex 1 cap 06/25/24 09:00 Vitamin B Complex Capsule PO DAILY [facility] Vitamin D 1,000 units 06/25/24 09:00 Cholecalciferol 1,000 Units Tablet PO DAILY [facility] Radiology Results: ITS Impressions Abdomen/Pelvis CT 06/24/24 06:45 IMPRESSION: 1. Bladder wall thickening, which may be secondary to cystitis or chronic outlet obstruction. 2. Bilateral inguinal hernias containing fat. Labs Labs: Laboratory Results - last 24 hr 06/24/24 06/24/24 06/24/24 06:57 11:04 18:03 Hgb 11.1 L 11.4 L 11.2 L Hct 33.2 L 33.9 L 32.3 L Hemoglobin A1c 5.5 TSH 1.320 06/25/24 00:50 Hgb 11.2 L Hct 32.6 L Hemoglobin A1c TSH Quality VTE Prophylaxis VTE prophylaxis: mechanical ordered
[2024-06-25 07:36] LABS: Basophils Percent Auto 0.4 % (0.2-1.2); Eosinophils Absolute Auto 0.1 K/mm3 (0-0.3); Eosinophils Percent Auto 0.9 % (0-4.4); Hematocrit 33.3 % (42.0-52.0); Hemoglobin 11.3 g/dL (14.0-18.0); Immature Granulocyte Absolute 0.04 K/mm3 (0.00-0.031); Immature Granulocyte Percent A 0.4 % (0-0.5); Lymphocytes Absolute Auto 1.02 K/mm3 (0.9-3.2); Mean Corpuscular HGB Conc 33.9 g/dl (32-36); Mean Corpuscular Hemoglobin 32.1 pg (26-34); Mean Corpuscular Volume 94.6 fl (80-100); Mean Platelet Volume 9.4 fl (7.4-10.4); Monocytes Absolute Auto 0.8 K/mm3 (0.1-0.6); Monocytes Percent Auto 8.1 % (2.6-8.5); Neutrophils Absolute Auto 7.3 K/mm3 (1.3-6.7); Neutrophils Percent Auto 79.2 % (45.5-73.1); Platelet Count Result 214 k/mm3 (150-375); Red Blood Count 3.52 M/mm3 (4.6-6.20); Red Cell Distribution Width 12.3 % (11.5-14.5); White Blood Count 9.3 K/mm3 (4.5-10.0)
[2024-06-25 07:51] LABS: Alanine Aminotransferase 20 U/L (6-50); Albumin Level 3.8 g/dL (3.5-5.1); Alkaline Phosphatase 68 U/L (38-126); Anion Gap 6 mmol/L (4-12); Aspartate Amino Transferase 29 U/L (17-59); Bilirubin,Total 1.2 mg/dL (0.2-1.3); Blood Urea Nitrogen 10 mg/dL (9-20); Calcium 8.7 mg/dL (8.4-10.2); Carbon Dioxide 25 mmol/L (22-30); Chloride 97 mmol/L (98-107); Estimated CRCL calculation 61 ml/min; Estimated Glomerular Filt Rate > 60; Glucose 111 mg/dL (65-110); Potassium 3.5 mmol/L (3.4-5.0); Sodium 128 mmol/L (137-145)
[2024-06-25 08:00] VITALS: PULSE 72; RESP 18; O2SAT 97
[2024-06-25] MEDS: THERAPEUTIC MULTIVITAMINS/MINERALS TAB (*BKC) 1 TABLET PO (08:42)
[2024-06-25] MEDS: TAMSULOSIN HCL 0.4 MG CAPSULE PO (08:42)
[2024-06-25] MEDS: VITAMIN B COMPLEX CAPSULE 1 CAP PO (08:42)
[2024-06-25] MEDS: ESCITALOPRAM OXALATE 10 MG TABLET PO (08:42)
[2024-06-25] MEDS: FINASTERIDE 5 MG TABLET PO (08:42)
[2024-06-25] MEDS: LOSARTAN POTASSIUM 25 MG TABLET PO (08:42)
[2024-06-25] MEDS: CHOLECALCIFEROL 1,000 UNITS TABLET 1000 UNITS PO (08:42)
[2024-06-25] MEDS: FLUTICASONE PROPIONATE 0.05% NA SPR 16 GM BTL (*BKC) 2 SPRAY NASAL (08:42)
[2024-06-25 13:32] VITALS: BP 141/65; PULSE 72; RESP 18; TEMP 36.9; O2SAT 96
[2024-06-25] MEDS: traZODone HCL 50 MG TABLET PO (20:31)
[2024-06-25] MEDS: ATORVASTATIN 20 MG TABLET PO (20:31)
[2024-06-25] MEDS: ACETAMINOPHEN 325 MG TABLET 650 MG PO (20:31)
[2024-06-25] MEDS: DONEPEZIL HCL 10 MG TABLET PO (20:31)
[2024-06-25] MEDS: HYDROcodone/acetaminophen (*CRX) 5-325 MG TABLET 1 TAB PO (20:45)
[2024-06-25 21:06] VITALS: BP 160/76; PULSE 77; RESP 16; TEMP 37.6; O2SAT 98
[2024-06-26 05:56] VITALS: BP 143/63; PULSE 66; RESP 18; TEMP 36.5; O2SAT 97
[2024-06-26] MEDS: ACETAMINOPHEN 325 MG TABLET 650 MG PO (05:56)
[2024-06-26 06:35] LABS: Basophils Percent Auto 0.4 % (0.2-1.2); Eosinophils Absolute Auto 0.2 K/mm3 (0-0.3); Eosinophils Percent Auto 1.9 % (0-4.4); Hematocrit 34.9 % (42.0-52.0); Hemoglobin 11.8 g/dL (14.0-18.0); Immature Granulocyte Absolute 0.03 K/mm3 (0.00-0.031); Immature Granulocyte Percent A 0.3 % (0-0.5); Lymphocytes Absolute Auto 1.16 K/mm3 (0.9-3.2); Lymphocytes Percent Auto 12.7 % (18.3-44.2); Mean Corpuscular HGB Conc 33.8 g/dl (32-36); Mean Corpuscular Hemoglobin 32.2 pg (26-34); Mean Corpuscular Volume 95.1 fl (80-100); Mean Platelet Volume 9.4 fl (7.4-10.4); Monocytes Absolute Auto 0.9 K/mm3 (0.1-0.6); Monocytes Percent Auto 9.7 % (2.6-8.5); Neutrophils Absolute Auto 6.9 K/mm3 (1.3-6.7); Platelet Count Result 241 k/mm3 (150-375); Red Blood Count 3.67 M/mm3 (4.6-6.20); Red Cell Distribution Width 12.2 % (11.5-14.5); White Blood Count 9.2 K/mm3 (4.5-10.0)
[2024-06-26 06:46] LABS: Alanine Aminotransferase 20 U/L (6-50); Albumin Level 3.8 g/dL (3.5-5.1); Alkaline Phosphatase 65 U/L (38-126); Anion Gap 7 mmol/L (4-12); Aspartate Amino Transferase 26 U/L (17-59); Bilirubin,Total 0.6 mg/dL (0.2-1.3); Blood Urea Nitrogen 12 mg/dL (9-20); Calcium 8.9 mg/dL (8.4-10.2); Carbon Dioxide 27 mmol/L (22-30); Chloride 95 mmol/L (98-107); Estimated CRCL calculation 61 ml/min; Estimated Glomerular Filt Rate > 60; Glucose 99 mg/dL (65-110); Potassium 3.8 mmol/L (3.4-5.0); Sodium 129 mmol/L (137-145)
[2024-06-26 08:00] VITALS: O2SAT 97
[2024-06-26] MEDS: LOSARTAN POTASSIUM 25 MG TABLET PO (09:42)
[2024-06-26] MEDS: TAMSULOSIN HCL 0.4 MG CAPSULE PO (09:43)
[2024-06-26] MEDS: CHOLECALCIFEROL 1,000 UNITS TABLET 1000 UNITS PO (09:44)
[2024-06-26] MEDS: FINASTERIDE 5 MG TABLET PO (09:45)
[2024-06-26] MEDS: ESCITALOPRAM OXALATE 10 MG TABLET PO (09:45)
[2024-06-26] MEDS: THERAPEUTIC MULTIVITAMINS/MINERALS TAB (*BKC) 1 TABLET PO (09:45)
[2024-06-26] MEDS: HYDROcodone/acetaminophen (*CRX) 5-325 MG TABLET 1 TAB PO ×2 (11:02→21:03)
[2024-06-26] MEDS: VITAMIN B COMPLEX CAPSULE 1 CAP PO (11:02)
--- NOTE | 2024-06-26 12:19 | P.PNIM_ITS ---
Progress Note: A&P Assessment and Plan (1) Hematuria: Code(s): R31.9 - Hematuria, unspecified Status: Acute Assessment and Plan: Reporting bright red blood in urine. * UA Showing red turbid urine with 3+ urine protein, 3+ urine blood, positive nitrate, 1+ bilirubin, 3+ leukocyte, greater than 100 urine RBC, greater than 100 urine WBC, many urine squamous epithelial cells seen, rare urine bacteria. * Urine culture was obtained and culture grew klebsiella * Thompson catheter placed and irrigated while in the ER was small blood clots draining, resolved * urology consulted & planning follow up with the urology clinic (2) Urinary tract infection: Code(s): N39.0 - Urinary tract infection, site not specified Status: Acute Assessment and Plan: UA Showing red turbid urine with 3+ urine protein, 3+ urine blood, positive nitrate, 1+ bilirubin, 3+ leukocyte, greater than 100 urine RBC, greater than 100 urine WBC, many urine squamous epithelial cells seen, rare urine bacteria. * urine culture showing Klebsiella pneumoniae, pansensitive * white blood cell count 6.2 * Change Rocephin to Augmentin BID for a 7 day course for klebsiella UTI (3) Normal pressure hydrocephalus: Code(s): G91.2 - (Idiopathic) normal pressure hydrocephalus Status: Acute Assessment and Plan: of note (4) Cervical stenosis of spinal canal: Code(s): M48.02 - Spinal stenosis, cervical region Status: Acute Assessment and Plan: Very limited range of motion to neck. Doesn't turn from side to side or raise or lower chin easily. CT Head/C-spine, facial bones on admission showed degnerative changes and severe bilateral neural foraminal narrowing at C3-4 and left sided C4-5 neural foraminal changes --Discussed stretching as able --Topical menthol prn (5) Hyponatremia: Code(s): E87.1 - Hypo-osmolality and hyponatremia Status: Inactive Assessment and Plan: Hyponatremia--135>128<129. Likely dilutional with fluids. Follow up in AM Time Spent With Patient Time: 59 minutes Subjective Date/time seen: 06/26/24 12:19 Interval history: Patient reports neck pain, very stiff and chronic appearing changes. Minimal improvement with topical medications. Hyponatremia--135>128<129. Likely dilutional with fluids. Follow up in AM Urine culture grew klebsiella, pansensitive. Plan to follow up with urology for void trial outpatient Hospital Course: This is an 84 year old male with a significant past medical history of normal pressure hydrocephalus, prostate cancer hyperlipidemia, anxiety, insomnia, sleep apnea, history of rheumatic fever without heart involvement, asthma, GERD, osteoporosis, arthritis, hypertension who presented to the hospital from [facility] admitted with urinary frequency and hematuria. Urology consulted Patient is a poor historian and family did not have additional information. Thompson catheter was placed and flushed with small blood clots returning. Morphine for pain, and started on Rocephin while in the ER. Urology consulted. Work up in the hospital included an abdomen/pelvis CT without contrast which revealed bladder wall thickening, which may be cystitis versus chronic outlet obstruction, bilateral inguinal hernias containing fat. Initial labs revealed a normal WBC 6.2, Hgb 10.7, Na+ 135, otherwise unremarkable. UA shown red colored urine with a turbid appearance, 3+ urine protein, 3+ urine blood, positive nitrate, 1+ urine bilirubin, 3+ leukocytes, >100 urine RBC, > 100 urine WBC, many urine squamous epithelial cells, rare bacteria. Urine culture grew klebsiella pneumoniae (pansensitive). Exam Narrative: General: In no acute distress, well nourished Cardiac: Normal S1 and S2. No murmur, gallops or friction rubs, peripheral pulses intact. Respiratory: Lungs clear to auscultation, no adventitious lung sounds, currently on room air Gastrointestinal: soft, non-distended, non-tender, normoactive bowel sounds. MSK: Difficulty turning neck from side to side, stiffness, muscle soreness : thompson catheter draining clear yellow urine Neuro: Alert and oriented x2, confused Objective Data Vital Signs Vital Signs: Vital Signs - 24 hr 06/25/24 13:32 06/25/24 21:06 06/25/24 20:00 Temperature 98.5 F 99.7 F H Pulse Rate 72 77 Respiratory Rate 18 16 Blood Pressure 141/65 H 160/76 H Pulse Oximetry 96 98 Oxygen Delivery Room Air 06/26/24 05:56 06/26/24 08:00 Temperature 97.7 F Pulse Rate 66 Respiratory Rate 18 Blood Pressure 143/63 H Pulse Oximetry 97 97 Oxygen Delivery Room Air Intake/Output Intake/Output: Intake & Output 06/23/24 06/24/24 06/25/24 06/26/24 23:59 23:59 23:59 23:59 Intake Total 50 967 679 Output Total 5652 1752 1294 [facility] -[phone] Meds/Results Medications: Active Medications Generic Name Dose Route Start Last Admin Trade Name Freq PRN Reason Stop Dose Admin Acetaminophen 650 mg 06/24/24 09:03 06/26/24 05:56 Acetaminophen 325 Mg Tablet PO 650 mg Q4H PRN Administration Mild Pain (1-3) or Fever Hydrocodone Bitart/Acetaminophen 1 tab 06/24/24 09:03 06/26/24 11:02 Hydrocodone/Acetaminophen (*Crx) 5-325 Mg Tablet PO 1 tab Q4H PRN Administration Moderate Pain (4-6) Atorvastatin Calcium 20 mg 06/24/24 21:00 06/25/24 20:31 Atorvastatin 20 Mg Tablet PO 20 mg HS MICHAELLE Administration Donepezil HCl 10 mg 06/24/24 21:00 06/25/24 20:31 Donepezil Hcl 10 Mg Tablet PO 10 mg HS MICHAELLE Administration Escitalopram Oxalate 10 mg 06/25/24 09:00 06/26/24 09:45 Escitalopram Oxalate 10 Mg Tablet PO 10 mg DAILY MICHAELLE Administration Finasteride 5 mg 06/25/24 09:00 06/26/24 09:45 Finasteride 5 Mg Tablet PO 5 mg DAILY MICHAELLE Administration Fluticasone Propionate 2 spray 06/25/24 09:00 06/25/24 08:42 Fluticasone Propionate 0.05% Na Spr 16 Gm Btl (*Bkc) NASAL 2 spray DAILY MICHAELLE Administration Hydralazine HCl 10 mg 06/24/24 17:23 Hydralazine Hcl 20 Mg/Ml Vial IV PUSH Q8H PRN Blood Pressure - High Ceftriaxone Sodium 1 gm in 50 mls @ 100 mls/hr 06/25/24 06:00 06/26/24 06:25 Rocephin 1 Gm/Ns 50 Ml IVPB Infused Q24H MICHAELLE Infusion Losartan Potassium 25 mg 06/24/24 17:25 06/26/24 09:42 Losartan Potassium 25 Mg Tablet PO 25 mg DAILY MICHAELLE Administration Menthol/Methyl Salicylate 1 applic 06/26/24 11:24 Menthol 10% / Methyl Salicylate 15% 57 Gm Tube TOPICAL BID PRN Muscle/Joint Pain Morphine Sulfate 2 mg 06/24/24 09:03 06/24/24 15:37 Morphine Sulfate (*Crx) 2 Mg/Ml Inj IV PUSH 2 mg Q4H PRN Administration Pain Rated 7-10 Multivitamins/Calcium 1 tablet 06/25/24 09:00 06/26/24 09:45 Therapeutic Multivitamins/Minerals Tab (*Bkc) PO 1 tablet DAILY MICHAELLE Administration Ondansetron HCl 4 mg 06/24/24 09:03 Ondansetron Inj 4 Mg/2 Ml Vial IV PUSH Q6H PRN Nausea And Vomiting Tamsulosin HCl 0.4 mg 06/25/24 09:00 06/26/24 09:43 Tamsulosin Hcl 0.4 Mg Capsule PO 0.4 mg DAILY MICHAELLE Administration Trazodone HCl 50 mg 06/24/24 21:00 06/25/24 20:31 Trazodone Hcl 50 Mg Tablet PO 50 mg HS MICHAELLE Administration Vitamin B Complex 1 cap 06/25/24 09:00 06/26/24 11:02 Vitamin B Complex Capsule PO 1 cap DAILY MICHAELLE Administration Vitamin D 1,000 units 06/25/24 09:00 06/26/24 09:44 Cholecalciferol 1,000 Units Tablet PO 1,000 units DAILY MICHAELLE Administration Radiology Results: ITS Impressions Abdomen/Pelvis CT 06/24/24 06:45 IMPRESSION: 1. Bladder wall thickening, which may be secondary to cystitis or chronic outlet obstruction. 2. Bilateral inguinal hernias containing fat. Labs Labs: Laboratory Results - last 24 hr 06/26/24 05:47 WBC 9.2 RBC 3.67 L Hgb 11.8 L Hct 34.9 L MCV 95.1 MCH 32.2 MCHC 33.8 RDW 12.2 Plt Count 241 MPV 9.4 Immature Gran % (Auto) 0.3 Neut % (Auto) 75.0 H Lymph % (Auto) 12.7 L [place] % (Auto) 9.7 H Eos % (Auto) 1.9 Baso % (Auto) 0.4 Lymph # (Auto) 1.16 [place] # (Auto) 0.9 H Eos # (Auto) 0.2 Baso # (Auto) 0.0 Abs Immat Gran (auto) 0.03 Absolute Neuts (auto) 6.9 H Absolute Nucleated RBC 0.000 Nucleated RBC % 0.0 Sodium 129 L Potassium 3.8 Chloride 95 L Carbon Dioxide 27 Anion Gap 7 BUN 12 Creatinine 0.80 Estim Creat Clear Calc 61 Estimated GFR > 60 Glucose 99 Calcium 8.9 Total Bilirubin 0.6 AST 26 ALT 20 Alkaline Phosphatase 65 Total Protein 7.0 Albumin 3.8 Quality VTE Prophylaxis VTE prophylaxis: mechanical ordered Hospitalist MIPS Advance Care Plan I have confirmed that the patient's Advanced Care Plan is present, code status is documented, or surrogate decision maker is listed in patient medical record.: Yes Medication Reconciliation I have utilized all available resources to obtain, update and review the patients current medications (includes all prescriptions, OTC, herbals, cannabis, and nutritional supplements).: Yes
[2024-06-26] MEDS: MENTHOL 10% / METHYL SALICYLATE 15% 57 GM TUBE 1 APPLIC TOPICAL ×2 (12:37→16:31)
[2024-06-26] MEDS: FLUTICASONE PROPIONATE 0.05% NA SPR 16 GM BTL (*BKC) 2 SPRAY NASAL (13:24)
--- NOTE | 2024-06-26 15:37 | P.PNUR_ITS ---
Progress Note: A&P Assessment and Plan (1) Hematuria: Code(s): R31.9 - Hematuria, unspecified Status: Acute Assessment and Plan: * Resolved; Indwelling Gilmore draining clear yellow urine (2) Urinary tract infection: Code(s): N39.0 - Urinary tract infection, site not specified Status: Acute Assessment and Plan: * Urine culture growing Klebsiella on IV ceftriaxone * Renal function stable, Cr 0.8; No leukocytosis, afebrile Plan Maintain indwelling Gilmore catheter Continue tamsulosin and finasteride Follow urine culture, treat accordingly Plan for outpatient urology follow-up for trial of void vs catheter exchange in the next few weeks No plan for inpatient urology intervention. Signing off. Please call with questions. Subjective Subjective Date/Time Seen: 06/26/24 15:37 Principal diagnosis: BPH with obstructive LUTS, urinary retention, Klebsiella UTI Interval history: Patiet reports feeling sleepy and has low energy, otherwise denies complaints Exam Const: General: comfortable and no acute distress HENMT: Face/Nose/Sinus: Normal nares present Mouth: Yes moist mucous membranes Eyes: General: appearance normal, both eyes and all related structures Sclera: sclerae normal : Male General Exam: No tenderness Urinary Catheter: Urinary Catheter: patent and draining and urine clear (yellow) Skin: General skin exam: normal color Neuro: Speech: normal speech Psych: Affect: normal affect Objective Data Vital Signs Vital Signs: Vital Signs - 24 hr 06/25/24 21:06 06/25/24 20:00 06/26/24 05:56 Temperature 99.7 F H 97.7 F Pulse Rate 77 66 Respiratory Rate 16 18 Blood Pressure 160/76 H 143/63 H Pulse Oximetry 98 97 Oxygen Delivery Room Air 06/26/24 08:00 06/26/24 13:32 Temperature Pulse Rate Respiratory Rate Blood Pressure Pulse Oximetry 97 Oxygen Delivery Room Air Room Air Intake/Output Intake/Output: Intake & Output 06/23/24 06/24/24 06/25/24 06/26/24 23:59 23:59 23:59 23:59 Intake Total 50 887 1000 Output Total 6904 1950 1175 [facility] -[phone] Meds/Results Medications: Active Medications Generic Name Dose Route Start Last Admin Trade Name Freq PRN Reason Stop Dose Admin Acetaminophen 650 mg 06/24/24 09:03 06/26/24 05:56 Acetaminophen 325 Mg Tablet PO 650 mg Q4H PRN Administration Mild Pain (1-3) or Fever Hydrocodone Bitart/Acetaminophen 1 tab 06/24/24 09:03 06/26/24 11:02 Hydrocodone/Acetaminophen (*Crx) 5-325 Mg Tablet PO 1 tab Q4H PRN Administration Moderate Pain (4-6) Amoxicillin/Clavulanate Potassium 1 tablet 06/27/24 09:00 Amoxicillin/Clavulanate K 875-125 Mg Tab PO 06/30/24 21:01 Q12HR MICHAELLE Atorvastatin Calcium 20 mg 06/24/24 21:00 06/25/24 20:31 Atorvastatin 20 Mg Tablet PO 20 mg HS MICHAELLE Administration Donepezil HCl 10 mg 06/24/24 21:00 06/25/24 20:31 Donepezil Hcl 10 Mg Tablet PO 10 mg HS MICHAELLE Administration Escitalopram Oxalate 10 mg 06/25/24 09:00 06/26/24 09:45 Escitalopram Oxalate 10 Mg Tablet PO 10 mg DAILY MICHAELLE Administration Finasteride 5 mg 06/25/24 09:00 06/26/24 09:45 Finasteride 5 Mg Tablet PO 5 mg DAILY MICHAELLE Administration Fluticasone Propionate 2 spray 06/25/24 09:00 06/26/24 13:24 Fluticasone Propionate 0.05% Na Spr 16 Gm Btl (*Bkc) NASAL 2 spray DAILY MICHAELLE Administration Hydralazine HCl 10 mg 06/24/24 17:23 Hydralazine Hcl 20 Mg/Ml Vial IV PUSH Q8H PRN Blood Pressure - High Losartan Potassium 25 mg 06/24/24 17:25 06/26/24 09:42 Losartan Potassium 25 Mg Tablet PO 25 mg DAILY MICHAELLE Administration Menthol/Methyl Salicylate 1 applic 06/26/24 11:24 06/26/24 12:37 Menthol 10% / Methyl Salicylate 15% 57 Gm Tube TOPICAL 1 applic BID PRN Administration Muscle/Joint Pain Morphine Sulfate 2 mg 06/24/24 09:03 06/24/24 15:37 Morphine Sulfate (*Crx) 2 Mg/Ml Inj IV PUSH 2 mg Q4H PRN Administration Pain Rated 7-10 Multivitamins/Calcium 1 tablet 06/25/24 09:00 06/26/24 09:45 Therapeutic Multivitamins/Minerals Tab (*Bkc) PO 1 tablet DAILY MICHAELLE Administration Ondansetron HCl 4 mg 06/24/24 09:03 Ondansetron Inj 4 Mg/2 Ml Vial IV PUSH Q6H PRN Nausea And Vomiting Tamsulosin HCl 0.4 mg 06/25/24 09:00 06/26/24 09:43 Tamsulosin Hcl 0.4 Mg Capsule PO 0.4 mg DAILY MICHAELLE Administration Trazodone HCl 50 mg 06/24/24 21:00 06/25/24 20:31 Trazodone Hcl 50 Mg Tablet PO 50 mg HS MICHAELLE Administration Vitamin B Complex 1 cap 06/25/24 09:00 06/26/24 11:02 Vitamin B Complex Capsule PO 1 cap DAILY MICHAELLE Administration Vitamin D 1,000 units 06/25/24 09:00 06/26/24 09:44 Cholecalciferol 1,000 Units Tablet PO 1,000 units DAILY MICHAELLE Administration Radiology Results: ITS Impressions Abdomen/Pelvis CT 06/24/24 06:45 IMPRESSION: 1. Bladder wall thickening, which may be secondary to cystitis or chronic outlet obstruction. 2. Bilateral inguinal hernias containing fat. Labs Labs: Laboratory Results - last 24 hr 06/26/24 05:47 WBC 9.2 RBC 3.67 L Hgb 11.8 L Hct 34.9 L MCV 95.1 MCH 32.2 MCHC 33.8 RDW 12.2 Plt Count 241 MPV 9.4 Immature Gran % (Auto) 0.3 Neut % (Auto) 75.0 H Lymph % (Auto) 12.7 L [place] % (Auto) 9.7 H Eos % (Auto) 1.9 Baso % (Auto) 0.4 Lymph # (Auto) 1.16 [place] # (Auto) 0.9 H Eos # (Auto) 0.2 Baso # (Auto) 0.0 Abs Immat Gran (auto) 0.03 Absolute Neuts (auto) 6.9 H Absolute Nucleated RBC 0.000 Nucleated RBC % 0.0 Sodium 129 L Potassium 3.8 Chloride 95 L Carbon Dioxide 27 Anion Gap 7 BUN 12 Creatinine 0.80 Estim Creat Clear Calc 61 Estimated GFR > 60 Glucose 99 Calcium 8.9 Total Bilirubin 0.6 AST 26 ALT 20 Alkaline Phosphatase 65 Total Protein 7.0 Albumin 3.8
[2024-06-26] MEDS: ATORVASTATIN 20 MG TABLET PO (21:04)
[2024-06-26] MEDS: traZODone HCL 50 MG TABLET PO (21:05)
[2024-06-26] MEDS: DONEPEZIL HCL 10 MG TABLET PO (21:05)
[2024-06-26 21:44] VITALS: BP 166/84; PULSE 92; RESP 20; TEMP 36.8; O2SAT 100
[2024-06-26] MEDS: MORPHINE SULFATE (*CRX) 2 MG/ML INJ IV PUSH (23:01)
[2024-06-27 06:00] VITALS: BP 181/70; PULSE 82; RESP 20; TEMP 36.8; O2SAT 99
[2024-06-27 07:25] LABS: Basophils Percent Auto 0.3 % (0.2-1.2); Eosinophils Percent Auto 0.4 % (0-4.4); Hematocrit 36.5 % (42.0-52.0); Hemoglobin 12.5 g/dL (14.0-18.0); Immature Granulocyte Absolute 0.04 K/mm3 (0.00-0.031); Immature Granulocyte Percent A 0.4 % (0-0.5); Mean Corpuscular HGB Conc 34.2 g/dl (32-36); Mean Corpuscular Hemoglobin 32.3 pg (26-34); Mean Corpuscular Volume 94.3 fl (80-100); Mean Platelet Volume 9.4 fl (7.4-10.4); Monocytes Absolute Auto 0.8 K/mm3 (0.1-0.6); Monocytes Percent Auto 7.6 % (2.6-8.5); Neutrophils Absolute Auto 8.1 K/mm3 (1.3-6.7); Neutrophils Percent Auto 81.3 % (45.5-73.1); Platelet Count Result 237 k/mm3 (150-375); Red Blood Count 3.87 M/mm3 (4.6-6.20); Red Cell Distribution Width 11.9 % (11.5-14.5)
[2024-06-27] MEDS: hydrALAZINE HCL 20 MG/ML VIAL 10 MG IV PUSH (07:32)
[2024-06-27 07:53] LABS: Alanine Aminotransferase 25 U/L (6-50); Albumin Level 4.1 g/dL (3.5-5.1); Alkaline Phosphatase 73 U/L (38-126); Anion Gap 4 mmol/L (4-12); Aspartate Amino Transferase 29 U/L (17-59); Bilirubin,Total 0.8 mg/dL (0.2-1.3); Blood Urea Nitrogen 11 mg/dL (9-20); Calcium 9.2 mg/dL (8.4-10.2); Carbon Dioxide 30 mmol/L (22-30); Chloride 95 mmol/L (98-107); Estimated CRCL calculation 70 ml/min; Estimated Glomerular Filt Rate > 60; Glucose 125 mg/dL (65-110); Potassium 3.9 mmol/L (3.4-5.0); Sodium 129 mmol/L (137-145)
[2024-06-27 08:50] VITALS: BP 128/60; PULSE 83; RESP 18; O2SAT 98
[2024-06-27] MEDS: CHOLECALCIFEROL 1,000 UNITS TABLET 1000 UNITS PO (08:52)
[2024-06-27] MEDS: LOSARTAN POTASSIUM 25 MG TABLET PO (08:52)
[2024-06-27] MEDS: TAMSULOSIN HCL 0.4 MG CAPSULE PO (08:52)
[2024-06-27] MEDS: ACETAMINOPHEN 325 MG TABLET 650 MG PO (08:52)
[2024-06-27] MEDS: VITAMIN B COMPLEX CAPSULE 1 CAP PO (08:52)
[2024-06-27] MEDS: AMOXICILLIN/CLAVULANATE K 875-125 MG TAB 1 TABLET PO ×2 (08:52→20:14)
[2024-06-27] MEDS: ESCITALOPRAM OXALATE 10 MG TABLET PO (08:52)
[2024-06-27] MEDS: FINASTERIDE 5 MG TABLET PO (08:53)
[2024-06-27] MEDS: FLUTICASONE PROPIONATE 0.05% NA SPR 16 GM BTL (*BKC) 2 SPRAY NASAL (08:53)
[2024-06-27] MEDS: THERAPEUTIC MULTIVITAMINS/MINERALS TAB (*BKC) 1 TABLET PO (08:53)
--- NOTE | 2024-06-27 10:32 | P.PNUR_ITS ---
Progress Note: A&P Assessment and Plan (1) Hematuria: Code(s): R31.9 - Hematuria, unspecified Status: Acute Assessment and Plan: * Recurrent, Gilmore again draining red urine. No clots. Patient asymptomatic with stable HGB and renal function. (2) Urinary tract infection: Code(s): N39.0 - Urinary tract infection, site not specified Status: Acute Assessment and Plan: * Urine culture growing Klebsiella on culture-directed abx Plan Maintain indwelling Gilmore catheter Will obtain bladder ultrasound to assess for clot given recurrent hematuria Encourage oral fluid intake Continue tamsulosin and finasteride Plan for outpatient urology follow-up for trial of void vs catheter exchange in the next few weeks Subjective Subjective Date/Time Seen: 06/27/24 10:32 Principal diagnosis: BPH with obstructive LUTS, urinary retention, Klebsiella UTI, hematuria Interval history: NAEO; Sleepy on exam, denies complaints. Indwelling Gilmore draining thin bloody urine this morning. He denies pulling at the catheter. Tubing is off-tension. Hgb stable. Renal function stable. On abx for Klebsiella UTI. Exam Const: General: comfortable and no acute distress Urinary Catheter: Urinary Catheter: patent and draining and urine red Objective Data Vital Signs Vital Signs: Vital Signs - 24 hr 06/26/24 13:32 06/26/24 21:44 06/27/24 06:00 Temperature 98.3 F 98.2 F Pulse Rate 92 82 Respiratory Rate 20 20 Blood Pressure 166/84 H 181/70 H Pulse Oximetry 100 99 Oxygen Delivery Room Air 06/27/24 08:50 Temperature Pulse Rate 83 Respiratory Rate 18 Blood Pressure 128/60 Pulse Oximetry 98 Oxygen Delivery Intake/Output Intake/Output: Intake & Output 06/24/24 06/25/24 06/26/24 06/27/24 23:59 23:59 23:59 23:59 Intake Total 50 887 1440 100 Output Total 3800 1950 2170 1100 [facility] -[phone] Meds/Results Medications: Active Medications Generic Name Dose Route Start Last Admin Trade Name Freq PRN Reason Stop Dose Admin Acetaminophen 650 mg 06/24/24 09:03 06/27/24 08:52 Acetaminophen 325 Mg Tablet PO 650 mg Q4H PRN Administration Mild Pain (1-3) or Fever Hydrocodone Bitart/Acetaminophen 1 tab 06/24/24 09:03 06/26/24 21:03 Hydrocodone/Acetaminophen (*Crx) 5-325 Mg Tablet PO 1 tab Q4H PRN Administration Moderate Pain (4-6) Amoxicillin/Clavulanate Potassium 1 tablet 06/27/24 09:00 06/27/24 08:52 Amoxicillin/Clavulanate K 875-125 Mg Tab PO 06/30/24 21:01 1 tablet Q12HR MICHAELLE Administration Atorvastatin Calcium 20 mg 06/24/24 21:00 06/26/24 21:04 Atorvastatin 20 Mg Tablet PO 20 mg HS MICHAELLE Administration Donepezil HCl 10 mg 06/24/24 21:00 06/26/24 21:05 Donepezil Hcl 10 Mg Tablet PO 10 mg HS MICHAELLE Administration Escitalopram Oxalate 10 mg 06/25/24 09:00 06/27/24 08:52 Escitalopram Oxalate 10 Mg Tablet PO 10 mg DAILY MICHAELLE Administration Finasteride 5 mg 06/25/24 09:00 06/27/24 08:53 Finasteride 5 Mg Tablet PO 5 mg DAILY MICHAELLE Administration Fluticasone Propionate 2 spray 06/25/24 09:00 06/27/24 08:53 Fluticasone Propionate 0.05% Na Spr 16 Gm Btl (*Bkc) NASAL 2 spray DAILY MICHAELLE Administration Hydralazine HCl 10 mg 06/24/24 17:23 06/27/24 07:32 Hydralazine Hcl 20 Mg/Ml Vial IV PUSH 10 mg Q8H PRN Administration Blood Pressure - High Losartan Potassium 25 mg 06/24/24 17:25 06/27/24 08:52 Losartan Potassium 25 Mg Tablet PO 25 mg DAILY MICHAELLE Administration Menthol/Methyl Salicylate 1 applic 06/26/24 11:24 06/26/24 16:31 Menthol 10% / Methyl Salicylate 15% 57 Gm Tube TOPICAL 1 applic BID PRN Administration Muscle/Joint Pain Morphine Sulfate 2 mg 06/24/24 09:03 06/26/24 23:01 Morphine Sulfate (*Crx) 2 Mg/Ml Inj IV PUSH 2 mg Q4H PRN Administration Pain Rated 7-10 Multivitamins/Calcium 1 tablet 06/25/24 09:00 06/27/24 08:53 Therapeutic Multivitamins/Minerals Tab (*Bkc) PO 1 tablet DAILY MICHAELLE Administration Ondansetron HCl 4 mg 06/24/24 09:03 Ondansetron Inj 4 Mg/2 Ml Vial IV PUSH Q6H PRN Nausea And Vomiting Tamsulosin HCl 0.4 mg 06/25/24 09:00 06/27/24 08:52 Tamsulosin Hcl 0.4 Mg Capsule PO 0.4 mg DAILY MICHAELLE Administration Trazodone HCl 50 mg 06/24/24 21:00 06/26/24 21:05 Trazodone Hcl 50 Mg Tablet PO 50 mg HS MICHAELLE Administration Vitamin B Complex 1 cap 06/25/24 09:00 06/27/24 08:52 Vitamin B Complex Capsule PO 1 cap DAILY MICHAELLE Administration Vitamin D 1,000 units 06/25/24 09:00 06/27/24 08:52 Cholecalciferol 1,000 Units Tablet PO 1,000 units DAILY MICHAELLE Administration Radiology Results: ITS Impressions Abdomen/Pelvis CT 06/24/24 06:45 IMPRESSION: 1. Bladder wall thickening, which may be secondary to cystitis or chronic outlet obstruction. 2. Bilateral inguinal hernias containing fat. Labs Labs: Laboratory Results - last 24 hr 06/27/24 06/27/24 06:31 06:32 WBC 10.0 RBC 3.87 L Hgb 12.5 L Hct 36.5 L MCV 94.3 MCH 32.3 MCHC 34.2 RDW 11.9 Plt Count 237 MPV 9.4 Immature Gran % (Auto) 0.4 Neut % (Auto) 81.3 H Lymph % (Auto) 10.0 L [place] % (Auto) 7.6 Eos % (Auto) 0.4 Baso % (Auto) 0.3 Lymph # (Auto) 1.00 [place] # (Auto) 0.8 H Eos # (Auto) 0.0 Baso # (Auto) 0.0 Abs Immat Gran (auto) 0.04 H Absolute Neuts (auto) 8.1 H Absolute Nucleated RBC 0.000 Nucleated RBC % 0.0 Sodium 129 L Potassium 3.9 Chloride 95 L Carbon Dioxide 30 Anion Gap 4 BUN 11 Creatinine 0.70 Estim Creat Clear Calc 70 Estimated GFR > 60 Glucose 125 H Calcium 9.2 Total Bilirubin 0.8 AST 29 ALT 25 Alkaline Phosphatase 73 Total Protein 7.0 Albumin 4.1
--- NOTE | 2024-06-27 13:11 | P.PNIM_ITS ---
Progress Note: A&P Assessment and Plan (1) Hematuria: Code(s): R31.9 - Hematuria, unspecified Status: Acute Assessment and Plan: * Reporting bright red blood in urine. * UA Showing red turbid urine with 3+ urine protein, 3+ urine blood, positive nitrate, 1+ bilirubin, 3+ leukocyte, greater than 100 urine RBC, greater than 100 urine WBC, many urine squamous epithelial cells seen, rare urine bacteria. * Urine culture was obtained and then * Thompson catheter placed and irrigated while in the ER was small blood clots draining * urology consulted 06/27/24: * Thompson currently draining clear, yellow urine. * Urology consulted and recommend keeping thompson in and will follow up for voiding trial as outpt. * Pt to continue with Augmentin at this time for a full 7 day course. (2) Urinary tract infection: Code(s): N39.0 - Urinary tract infection, site not specified Status: Acute Assessment and Plan: * UA Showing red turbid urine with 3+ urine protein, 3+ urine blood, positive nitrate, 1+ bilirubin, 3+ leukocyte, greater than 100 urine RBC, greater than 100 urine WBC, many urine squamous epithelial cells seen, rare urine bacteria. * urine culture showing Klebsiella pneumoniae on preliminary read * white blood cell count 6.2 * continue Rocephin until final urine culture results 06/27/24: * Continue Augmentin for full 7 day course. (3) Normal pressure hydrocephalus: Code(s): G91.2 - (Idiopathic) normal pressure hydrocephalus Status: Acute Assessment and Plan: of note Time Spent With Patient Time with patient: 15 - 25 minutes Subjective Date/time seen: 06/27/24 13:11 Interval history: This very pleasant 84 year old male pt was examined at the bedside today in interval assessment. Urology has signed off and will follow up with him as outpt for voiding trial in their office. Pt will have HH set up for discharge back to [facility] as long as PT deems him appropriate to do so. HH to help with thompson catheter care. We are currently awaiting the PT/OT recommendations. Pt is without any acute complaints at this time. Review of Systems Review of Systems: All systems reviewed & are unremarkable except as noted in HPI and below Constitutional: Constitutional: Reports as per HPI and Reports no additional constitutional complaints Eyes: Eyes: Reports as per HPI and Reports no additional eye complaints ENT: Reports system reviewed and no additional complaints, except as documented and Reports as per HPI Cardiovascular: Cardiovascular: Reports as per HPI and Reports no additional cardiovascular complaints Respiratory: Respiratory: Reports as per HPI and Reports no additional respiratory complaints Gastrointestinal: Gastrointestinal: Reports as per HPI and Reports no additional gastrointestinal complaints Genitourinary: Genitourinary: Reports no additional male genitourinary complaints and Reports as per HPI Musculoskeletal: Musculoskeletal: Reports no additional musculoskeletal complaints and Reports as per HPI Integumentary/Breasts: Skin/Breast: Reports system reviewed and no additional complaints, except as docu and Reports as per HPI Neurologic: Reports system reviewed and no additional complaints, except as documented and Reports as per HPI Psychiatric: Psychiatric: Reports no additional psychiatric complaints and Reports as per HPI Exam Narrative: General: In no acute distress, well nourished male pt lying supine in bed at this time without any acute distress. Cardiac: Normal S1 and S2. No murmur, gallops or friction rubs, peripheral pulses intact. Respiratory: Lungs clear to auscultation, no adventitious lung sounds, currently on room air Gastrointestinal: soft, non-distended, non-tender, normoactive bowel sounds. : thompson catheter draining clear yellow urine Neuro: Alert and oriented x3, no current confusion. Objective Data Vital Signs Vital Signs: Vital Signs - 24 hr 06/26/24 13:32 06/26/24 21:44 06/27/24 06:00 Temperature 98.3 F 98.2 F Pulse Rate 92 82 Respiratory Rate 20 20 Blood Pressure 166/84 H 181/70 H Pulse Oximetry 100 99 Oxygen Delivery Room Air 06/27/24 08:15 06/27/24 08:50 Temperature Pulse Rate 83 Respiratory Rate 18 Blood Pressure 128/60 Pulse Oximetry 98 Oxygen Delivery Room Air Intake/Output Intake/Output: Intake & Output 06/24/24 06/25/24 06/26/24 06/27/24 23:59 23:59 23:59 23:59 Intake Total 50 887 1440 100 Output Total 3800 1950 2175 1100 [facility] -[phone] Meds/Results Medications: Active Medications Generic Name Dose Route Start Last Admin Trade Name Freq PRN Reason Stop Dose Admin Acetaminophen 650 mg 06/24/24 09:03 06/27/24 08:52 Acetaminophen 325 Mg Tablet PO 650 mg Q4H PRN Administration Mild Pain (1-3) or Fever Hydrocodone Bitart/Acetaminophen 1 tab 06/24/24 09:03 06/26/24 21:03 Hydrocodone/Acetaminophen (*Crx) 5-325 Mg Tablet PO 1 tab Q4H PRN Administration Moderate Pain (4-6) Amoxicillin/Clavulanate Potassium 1 tablet 06/27/24 09:00 06/27/24 08:52 Amoxicillin/Clavulanate K 875-125 Mg Tab PO 06/30/24 21:01 1 tablet Q12HR MICHAELLE Administration Atorvastatin Calcium 20 mg 06/24/24 21:00 06/26/24 21:04 Atorvastatin 20 Mg Tablet PO 20 mg HS MICHAELLE Administration Donepezil HCl 10 mg 06/24/24 21:00 06/26/24 21:05 Donepezil Hcl 10 Mg Tablet PO 10 mg HS MICHAELLE Administration Escitalopram Oxalate 10 mg 06/25/24 09:00 06/27/24 08:52 Escitalopram Oxalate 10 Mg Tablet PO 10 mg DAILY MICHAELLE Administration Finasteride 5 mg 06/25/24 09:00 06/27/24 08:53 Finasteride 5 Mg Tablet PO 5 mg DAILY MICHAELLE Administration Fluticasone Propionate 2 spray 06/25/24 09:00 06/27/24 08:53 Fluticasone Propionate 0.05% Na Spr 16 Gm Btl (*Bkc) NASAL 2 spray DAILY MICHAELLE Administration Hydralazine HCl 10 mg 06/24/24 17:23 06/27/24 07:32 Hydralazine Hcl 20 Mg/Ml Vial IV PUSH 10 mg Q8H PRN Administration Blood Pressure - High Losartan Potassium 25 mg 06/24/24 17:25 06/27/24 08:52 Losartan Potassium 25 Mg Tablet PO 25 mg DAILY MICHAELLE Administration Menthol/Methyl Salicylate 1 applic 06/26/24 11:24 06/26/24 16:31 Menthol 10% / Methyl Salicylate 15% 57 Gm Tube TOPICAL 1 applic BID PRN Administration Muscle/Joint Pain Morphine Sulfate 2 mg 06/24/24 09:03 06/26/24 23:01 Morphine Sulfate (*Crx) 2 Mg/Ml Inj IV PUSH 2 mg Q4H PRN Administration Pain Rated 7-10 Multivitamins/Calcium 1 tablet 06/25/24 09:00 06/27/24 08:53 Therapeutic Multivitamins/Minerals Tab (*Bkc) PO 1 tablet DAILY MICHAELLE Administration Ondansetron HCl 4 mg 06/24/24 09:03 Ondansetron Inj 4 Mg/2 Ml Vial IV PUSH Q6H PRN Nausea And Vomiting Tamsulosin HCl 0.4 mg 06/25/24 09:00 06/27/24 08:52 Tamsulosin Hcl 0.4 Mg Capsule PO 0.4 mg DAILY MICHAELLE Administration Trazodone HCl 50 mg 06/24/24 21:00 06/26/24 21:05 Trazodone Hcl 50 Mg Tablet PO 50 mg HS MICHAELLE Administration Vitamin B Complex 1 cap 06/25/24 09:00 06/27/24 08:52 Vitamin B Complex Capsule PO 1 cap DAILY MICHAELLE Administration Vitamin D 1,000 units 06/25/24 09:00 06/27/24 08:52 Cholecalciferol 1,000 Units Tablet PO 1,000 units DAILY MICHAELLE Administration Radiology Results: ITS Impressions Abdomen/Pelvis CT 06/24/24 06:45 IMPRESSION: 1. Bladder wall thickening, which may be secondary to cystitis or chronic outlet obstruction. 2. Bilateral inguinal hernias containing fat. Labs Labs: Laboratory Results - last 24 hr 06/27/24 06/27/24 06:31 06:32 WBC 10.0 RBC 3.87 L Hgb 12.5 L Hct 36.5 L MCV 94.3 MCH 32.3 MCHC 34.2 RDW 11.9 Plt Count 237 MPV 9.4 Immature Gran % (Auto) 0.4 Neut % (Auto) 81.3 H Lymph % (Auto) 10.0 L [place] % (Auto) 7.6 Eos % (Auto) 0.4 Baso % (Auto) 0.3 Lymph # (Auto) 1.00 [place] # (Auto) 0.8 H Eos # (Auto) 0.0 Baso # (Auto) 0.0 Abs Immat Gran (auto) 0.04 H Absolute Neuts (auto) 8.1 H Absolute Nucleated RBC 0.000 Nucleated RBC % 0.0 Sodium 129 L Potassium 3.9 Chloride 95 L Carbon Dioxide 30 Anion Gap 4 BUN 11 Creatinine 0.70 Estim Creat Clear Calc 70 Estimated GFR > 60 Glucose 125 H Calcium 9.2 Total Bilirubin 0.8 AST 29 ALT 25 Alkaline Phosphatase 73 Total Protein 7.0 Albumin 4.1 Quality VTE Prophylaxis VTE prophylaxis: mechanical ordered
[2024-06-27 14:00] VITALS: BP 120/52; PULSE 73; RESP 18; TEMP 36.4; O2SAT 99
[2024-06-27] MEDS: traZODone HCL 50 MG TABLET PO (20:14)
[2024-06-27] MEDS: DONEPEZIL HCL 10 MG TABLET PO (20:14)
[2024-06-27] MEDS: HYDROcodone/acetaminophen (*CRX) 5-325 MG TABLET 1 TAB PO (20:14)
[2024-06-27] MEDS: ATORVASTATIN 20 MG TABLET PO (20:14)
[2024-06-27 20:58] LABS: Glucose Point of Care 156 mg/dl (65-105)
[2024-06-27 21:26] VITALS: BP 118/53; PULSE 82; RESP 20; TEMP 36.9; O2SAT 98
[2024-06-27] MEDS: MORPHINE SULFATE (*CRX) 2 MG/ML INJ IV PUSH (22:07)
[2024-06-28 05:37] VITALS: BP 164/63; PULSE 81; RESP 20; TEMP 36.9; O2SAT 96
[2024-06-28] MEDS: HYDROcodone/acetaminophen (*CRX) 5-325 MG TABLET 1 TAB PO ×2 (06:49→20:46)
[2024-06-28 06:56] LABS: Basophils Percent Auto 0.4 % (0.2-1.2); Eosinophils Percent Auto 0.3 % (0-4.4); Hematocrit 33.9 % (42.0-52.0); Hemoglobin 11.3 g/dL (14.0-18.0); Immature Granulocyte Absolute 0.04 K/mm3 (0.00-0.031); Immature Granulocyte Percent A 0.4 % (0-0.5); Lymphocytes Absolute Auto 0.88 K/mm3 (0.9-3.2); Mean Corpuscular HGB Conc 33.3 g/dl (32-36); Mean Corpuscular Hemoglobin 31.5 pg (26-34); Mean Corpuscular Volume 94.4 fl (80-100); Mean Platelet Volume 9.3 fl (7.4-10.4); Monocytes Absolute Auto 0.9 K/mm3 (0.1-0.6); Monocytes Percent Auto 9.2 % (2.6-8.5); Neutrophils Absolute Auto 7.9 K/mm3 (1.3-6.7); Neutrophils Percent Auto 80.7 % (45.5-73.1); Platelet Count Result 249 k/mm3 (150-375); Red Blood Count 3.59 M/mm3 (4.6-6.20); Red Cell Distribution Width 12.1 % (11.5-14.5); White Blood Count 9.8 K/mm3 (4.5-10.0)
[2024-06-28 07:11] LABS: Alanine Aminotransferase 23 U/L (6-50); Albumin Level 3.7 g/dL (3.5-5.1); Alkaline Phosphatase 64 U/L (38-126); Anion Gap 4 mmol/L (4-12); Aspartate Amino Transferase 25 U/L (17-59); Bilirubin,Total 0.8 mg/dL (0.2-1.3); Blood Urea Nitrogen 19 mg/dL (9-20); Carbon Dioxide 27 mmol/L (22-30); Chloride 98 mmol/L (98-107); Estimated CRCL calculation 70 ml/min; Estimated Glomerular Filt Rate > 60; Glucose 116 mg/dL (65-110); Sodium 129 mmol/L (137-145)
[2024-06-28] MEDS: FLUTICASONE PROPIONATE 0.05% NA SPR 16 GM BTL (*BKC) 2 SPRAY NASAL (09:25)
[2024-06-28] MEDS: THERAPEUTIC MULTIVITAMINS/MINERALS TAB (*BKC) 1 TABLET PO (09:27)
[2024-06-28] MEDS: TAMSULOSIN HCL 0.4 MG CAPSULE PO (09:27)
[2024-06-28] MEDS: ESCITALOPRAM OXALATE 10 MG TABLET PO (09:27)
[2024-06-28] MEDS: FINASTERIDE 5 MG TABLET PO (09:27)
[2024-06-28] MEDS: VITAMIN B COMPLEX CAPSULE 1 CAP PO (09:28)
[2024-06-28] MEDS: AMOXICILLIN/CLAVULANATE K 875-125 MG TAB 1 TABLET PO ×2 (09:28→20:39)
[2024-06-28] MEDS: CHOLECALCIFEROL 1,000 UNITS TABLET 1000 UNITS PO (09:28)
[2024-06-28] MEDS: LOSARTAN POTASSIUM 25 MG TABLET PO (09:28)
[2024-06-28 11:32] VITALS: BP 116/42
[2024-06-28] MEDS: ACETAMINOPHEN 325 MG TABLET 650 MG PO ×2 (11:41→18:24)
--- NOTE | 2024-06-28 11:52 | P.PNIM_ITS ---
Progress Note: A&P Assessment and Plan (1) Hematuria: Code(s): R31.9 - Hematuria, unspecified Status: Acute Assessment and Plan: * Reporting bright red blood in urine. * UA Showing red turbid urine with 3+ urine protein, 3+ urine blood, positive nitrate, 1+ bilirubin, 3+ leukocyte, greater than 100 urine RBC, greater than 100 urine WBC, many urine squamous epithelial cells seen, rare urine bacteria. * Urine culture was obtained and then * Thompson catheter placed and irrigated while in the ER was small blood clots draining * urology consulted 06/27/24: * Thompson currently draining clear, yellow urine. * Urology consulted and recommend keeping thompson in and will follow up for voiding trial as outpt. * Pt to continue with Augmentin at this time for a full 7 day course. 06/28/24: * Urology has ordered US of bladder. * Continue Augmentin to complete a full 7 day course for UTI that grew out Klebsiella, which will end in two days. (2) Urinary tract infection: Code(s): N39.0 - Urinary tract infection, site not specified Status: Acute Assessment and Plan: * UA Showing red turbid urine with 3+ urine protein, 3+ urine blood, positive nitrate, 1+ bilirubin, 3+ leukocyte, greater than 100 urine RBC, greater than 100 urine WBC, many urine squamous epithelial cells seen, rare urine bacteria. * urine culture showing Klebsiella pneumoniae on preliminary read * white blood cell count 6.2 * continue Rocephin until final urine culture results 06/27/24: * Continue Augmentin for full 7 day course. 06/28/24: * Two days left of full 7 day course of Augmentin to treat UTI that grew out Klebsiella. (3) Normal pressure hydrocephalus: Code(s): G91.2 - (Idiopathic) normal pressure hydrocephalus Status: Chronic Assessment and Plan: of note Time Spent With Patient Time with patient: 15 - 25 minutes Subjective Date/time seen: 06/28/24 11:52 Interval history: This 84 year old male pt was examined at the bedside today in interval as sessment. He is somnolent, and appears to have fallen asleep while eating, but arouses to tactile stimulation without excessive stimulation. He has no complaints of pain or distress and is oriented to self and year today. Urology has placed additional orders today for US of bladder and also for clamping of thompson. Pt is pending PT evaluation to determine his appropriatability for discharge to memory care vs. residential. It was attempted yesterday, but pt was too tired to participate. He shows no acute distress at this time. Review of Systems 2 Review of Systems: All systems reviewed & are unremarkable except as noted in HPI and below Exam Narrative: General: In no acute distress, well nourished male pt lying supine in bed at this time without any acute distress. Cardiac: Normal S1 and S2. No murmur, gallops or friction rubs, peripheral pulses intact. Respiratory: Lungs clear to auscultation, no adventitious lung sounds, currently on room air Gastrointestinal: soft, non-distended, non-tender, normoactive bowel sounds. : thompson catheter draining clear yellow urine Neuro: Alert and oriented x3, no current confusion. Objective Data Vital Signs Vital Signs: Vital Signs - 24 hr 06/27/24 13:02 06/27/24 14:00 06/27/24 20:00 Temperature 97.5 F L Pulse Rate 73 Respiratory Rate 18 Blood Pressure 120/52 L Pulse Oximetry 99 Oxygen Delivery Room Air Room Air 06/27/24 21:26 06/28/24 05:37 06/28/24 11:32 Temperature 98.5 F 98.4 F Pulse Rate 82 81 Respiratory Rate 20 20 Blood Pressure 118/53 L 164/63 H 116/42 L Pulse Oximetry 98 96 Oxygen Delivery Intake/Output Intake/Output: Intake & Output 06/25/24 06/26/24 06/27/24 06/28/24 23:59 23:59 23:59 23:59 Intake Total 887 1440 340 580 Output Total 8820 1410 1600 300 [facility] -[phone] 280 Meds/Results Medications: Active Medications Generic Name Dose Route Start Last Admin Trade Name Freq PRN Reason Stop Dose Admin Acetaminophen 650 mg 06/24/24 09:03 06/28/24 11:41 Acetaminophen 325 Mg Tablet PO 650 mg Q4H PRN Administration Mild Pain (1-3) or Fever Hydrocodone Bitart/Acetaminophen 1 tab 06/24/24 09:03 06/28/24 06:49 Hydrocodone/Acetaminophen (*Crx) 5-325 Mg Tablet PO 1 tab Q4H PRN Administration Moderate Pain (4-6) Amoxicillin/Clavulanate Potassium 1 tablet 06/27/24 09:00 06/28/24 09:28 Amoxicillin/Clavulanate K 875-125 Mg Tab PO 06/30/24 21:01 1 tablet Q12HR MICHAELLE Administration Atorvastatin Calcium 20 mg 06/24/24 21:00 06/27/24 20:14 Atorvastatin 20 Mg Tablet PO 20 mg HS MICHAELLE Administration Donepezil HCl 10 mg 06/24/24 21:00 06/27/24 20:14 Donepezil Hcl 10 Mg Tablet PO 10 mg HS MICHAELLE Administration Escitalopram Oxalate 10 mg 06/25/24 09:00 06/28/24 09:27 Escitalopram Oxalate 10 Mg Tablet PO 10 mg DAILY MICHAELLE Administration Finasteride 5 mg 06/25/24 09:00 06/28/24 09:27 Finasteride 5 Mg Tablet PO 5 mg DAILY MICHAELLE Administration Fluticasone Propionate 2 spray 06/25/24 09:00 06/28/24 09:25 Fluticasone Propionate 0.05% Na Spr 16 Gm Btl (*Bkc) NASAL 2 spray DAILY MICHAELLE Administration Hydralazine HCl 10 mg 06/24/24 17:23 06/27/24 07:32 Hydralazine Hcl 20 Mg/Ml Vial IV PUSH 10 mg Q8H PRN Administration Blood Pressure - High Losartan Potassium 25 mg 06/24/24 17:25 06/28/24 09:28 Losartan Potassium 25 Mg Tablet PO 25 mg DAILY MICHAELLE Administration Menthol/Methyl Salicylate 1 applic 06/26/24 11:24 06/26/24 16:31 Menthol 10% / Methyl Salicylate 15% 57 Gm Tube TOPICAL 1 applic BID PRN Administration Muscle/Joint Pain Morphine Sulfate 2 mg 06/24/24 09:03 06/27/24 22:07 Morphine Sulfate (*Crx) 2 Mg/Ml Inj IV PUSH 2 mg Q4H PRN Administration Pain Rated 7-10 Multivitamins/Calcium 1 tablet 06/25/24 09:00 06/28/24 09:27 Therapeutic Multivitamins/Minerals Tab (*Bkc) PO 1 tablet DAILY MICHAELLE Administration Ondansetron HCl 4 mg 06/24/24 09:03 Ondansetron Inj 4 Mg/2 Ml Vial IV PUSH Q6H PRN Nausea And Vomiting Tamsulosin HCl 0.4 mg 06/25/24 09:00 06/28/24 09:27 Tamsulosin Hcl 0.4 Mg Capsule PO 0.4 mg DAILY MICHAELLE Administration Trazodone HCl 50 mg 06/24/24 21:00 06/27/24 20:14 Trazodone Hcl 50 Mg Tablet PO 50 mg HS MICHAELLE Administration Vitamin B Complex 1 cap 06/25/24 09:00 06/28/24 09:28 Vitamin B Complex Capsule PO 1 cap DAILY MICHAELLE Administration Vitamin D 1,000 units 06/25/24 09:00 06/28/24 09:28 Cholecalciferol 1,000 Units Tablet PO 1,000 units DAILY MICHAELLE Administration Radiology Results: ITS Impressions Abdomen/Pelvis CT 06/24/24 06:45 IMPRESSION: 1. Bladder wall thickening, which may be secondary to cystitis or chronic outlet obstruction. 2. Bilateral inguinal hernias containing fat. Pelvis Ultrasound 06/27/24 14:20 IMPRESSION: Urinary bladder decompressed by Thompson catheter, which limits evaluation. Consider repeat examination with the Thompson clamped. Labs Labs: Laboratory Results - last 24 hr 06/27/24 06/28/24 20:05 05:55 WBC 9.8 RBC 3.59 L Hgb 11.3 L Hct 33.9 L MCV 94.4 MCH 31.5 MCHC 33.3 RDW 12.1 Plt Count 249 MPV 9.3 Immature Gran % (Auto) 0.4 Neut % (Auto) 80.7 H Lymph % (Auto) 9.0 L [place] % (Auto) 9.2 H Eos % (Auto) 0.3 Baso % (Auto) 0.4 Lymph # (Auto) 0.88 L [place] # (Auto) 0.9 H Eos # (Auto) 0.0 Baso # (Auto) 0.0 Abs Immat Gran (auto) 0.04 H Absolute Neuts (auto) 7.9 H Absolute Nucleated RBC 0.000 Nucleated RBC % 0.0 Sodium 129 L Potassium 4.0 Chloride 98 Carbon Dioxide 27 Anion Gap 4 BUN 19 Creatinine 0.70 Estim Creat Clear Calc 70 Estimated GFR > 60 Glucose 116 H POC Capillary Glucose 156 H Calcium 9.0 Total Bilirubin 0.8 AST 25 ALT 23 Alkaline Phosphatase 64 Total Protein 7.0 Albumin 3.7 Quality VTE Prophylaxis VTE prophylaxis: mechanical ordered
--- NOTE | 2024-06-28 13:43 | WPDUROPN2 ---
Progress Note: A&P Assessment and Plan (1) Hematuria: Code(s): R31.9 - Hematuria, unspecified Status: Acute Assessment and Plan: Intermittent. Patient asymptomatic with stable HGB and renal function. Repeat bladder US shows no debris. Rey output today (2) Urinary tract infection: Code(s): N39.0 - Urinary tract infection, site not specified Status: Acute Assessment and Plan: Urine culture growing Klebsiella on culture-directed abx Plan Intermittent hematuria, possibly from acute UTI. No clot on US. No indication for CBI or urgent cystoscopy. Maintain indwelling Gilmore catheter Encourage oral fluid intake Continue tamsulosin and finasteride Plan for outpatient urology follow-up for trial of void vs. catheter exchange in the next few weeks. Can discuss option of outpatient cysto at that time if this aligns with patient's goals of care. Signing off. Please call with questions. Subjective Subjective Date/Time Seen: 06/28/24 13:43 Principal diagnosis: BPH with obstructive LUTS, urinary retention, Klebsiella UTI, hematuria Interval history: NAEO; Patient denies complaints. Indwelling Gilmore draining clear rey urine today. Repeat bladder US shows no focal bladder mass or significant debris. Exam Narrative: Const General comfortable no acute distress Urinary Catheter Urinary Catheter patent and draining Const: General: comfortable and no acute distress Urinary Catheter: Urinary Catheter: patent and draining and urine red Objective Data Vital Signs Vital Signs: Vital Signs - 24 hr 06/27/24 14:00 06/27/24 20:00 06/27/24 21:26 Temperature 97.5 F L 98.5 F Pulse Rate 73 82 Respiratory Rate 18 20 Blood Pressure 120/52 L 118/53 L Pulse Oximetry 99 98 Oxygen Delivery Room Air 06/28/24 05:37 06/28/24 11:32 Temperature 98.4 F Pulse Rate 81 Respiratory Rate 20 Blood Pressure 164/63 H 116/42 L Pulse Oximetry 96 Oxygen Delivery Intake/Output Intake/Output: Intake & Output 06/25/24 06/26/24 06/27/24 06/28/24 23:59 23:59 23:59 23:59 Intake Total 887 0680 340 580 Output Total 5179 1013 0307 300 [facility] -[phone] 280 Meds/Results Medications: Active Medications Generic Name Dose Route Start Last Admin Trade Name Freq PRN Reason Stop Dose Admin Acetaminophen 650 mg 06/24/24 09:03 06/28/24 11:41 Acetaminophen 325 Mg Tablet PO 650 mg Q4H PRN Administration Mild Pain (1-3) or Fever Hydrocodone Bitart/Acetaminophen 1 tab 06/24/24 09:03 06/28/24 06:49 Hydrocodone/Acetaminophen (*Crx) 5-325 Mg Tablet PO 1 tab Q4H PRN Administration Moderate Pain (4-6) Amoxicillin/Clavulanate Potassium 1 tablet 06/27/24 09:00 06/28/24 09:28 Amoxicillin/Clavulanate K 875-125 Mg Tab PO 06/30/24 21:01 1 tablet Q12HR MICHAELLE Administration Atorvastatin Calcium 20 mg 06/24/24 21:00 06/27/24 20:14 Atorvastatin 20 Mg Tablet PO 20 mg HS MICHAELLE Administration Donepezil HCl 10 mg 06/24/24 21:00 06/27/24 20:14 Donepezil Hcl 10 Mg Tablet PO 10 mg HS MICHAELLE Administration Escitalopram Oxalate 10 mg 06/25/24 09:00 06/28/24 09:27 Escitalopram Oxalate 10 Mg Tablet PO 10 mg DAILY MICHAELLE Administration Finasteride 5 mg 06/25/24 09:00 06/28/24 09:27 Finasteride 5 Mg Tablet PO 5 mg DAILY MICHAELLE Administration Fluticasone Propionate 2 spray 06/25/24 09:00 06/28/24 09:25 Fluticasone Propionate 0.05% Na Spr 16 Gm Btl (*Bkc) NASAL 2 spray DAILY MICHAELLE Administration Hydralazine HCl 10 mg 06/24/24 17:23 06/27/24 07:32 Hydralazine Hcl 20 Mg/Ml Vial IV PUSH 10 mg Q8H PRN Administration Blood Pressure - High Losartan Potassium 25 mg 06/24/24 17:25 06/28/24 09:28 Losartan Potassium 25 Mg Tablet PO 25 mg DAILY MICHAELLE Administration Menthol/Methyl Salicylate 1 applic 06/26/24 11:24 06/26/24 16:31 Menthol 10% / Methyl Salicylate 15% 57 Gm Tube TOPICAL 1 applic BID PRN Administration Muscle/Joint Pain Morphine Sulfate 2 mg 06/24/24 09:03 06/27/24 22:07 Morphine Sulfate (*Crx) 2 Mg/Ml Inj IV PUSH 2 mg Q4H PRN Administration Pain Rated 7-10 Multivitamins/Calcium 1 tablet 06/25/24 09:00 06/28/24 09:27 Therapeutic Multivitamins/Minerals Tab (*Bkc) PO 1 tablet DAILY MICHAELLE Administration Ondansetron HCl 4 mg 06/24/24 09:03 Ondansetron Inj 4 Mg/2 Ml Vial IV PUSH Q6H PRN Nausea And Vomiting Tamsulosin HCl 0.4 mg 06/25/24 09:00 06/28/24 09:27 Tamsulosin Hcl 0.4 Mg Capsule PO 0.4 mg DAILY MICHAELLE Administration Trazodone HCl 50 mg 06/24/24 21:00 06/27/24 20:14 Trazodone Hcl 50 Mg Tablet PO 50 mg HS MICHAELLE Administration Vitamin B Complex 1 cap 06/25/24 09:00 06/28/24 09:28 Vitamin B Complex Capsule PO 1 cap DAILY MICHAELLE Administration Vitamin D 1,000 units 06/25/24 09:00 06/28/24 09:28 Cholecalciferol 1,000 Units Tablet PO 1,000 units DAILY MICHAELLE Administration Radiology Results: ITS Impressions Abdomen/Pelvis CT 06/24/24 06:45 IMPRESSION: 1. Bladder wall thickening, which may be secondary to cystitis or chronic outlet obstruction. 2. Bilateral inguinal hernias containing fat. Pelvis Ultrasound 06/28/24 13:15 Impression: 1: Incompletely distended bladder containing Gilmore catheter. Cannot exclude bladder wall thickening. No focal bladder mass or significant debris. Labs Labs: Laboratory Results - last 24 hr 06/27/24 06/28/24 20:05 05:55 WBC 9.8 RBC 3.59 L Hgb 11.3 L Hct 33.9 L MCV 94.4 MCH 31.5 MCHC 33.3 RDW 12.1 Plt Count 249 MPV 9.3 Immature Gran % (Auto) 0.4 Neut % (Auto) 80.7 H Lymph % (Auto) 9.0 L [place] % (Auto) 9.2 H Eos % (Auto) 0.3 Baso % (Auto) 0.4 Lymph # (Auto) 0.88 L [place] # (Auto) 0.9 H Eos # (Auto) 0.0 Baso # (Auto) 0.0 Abs Immat Gran (auto) 0.04 H Absolute Neuts (auto) 7.9 H Absolute Nucleated RBC 0.000 Nucleated RBC % 0.0 Sodium 129 L Potassium 4.0 Chloride 98 Carbon Dioxide 27 Anion Gap 4 BUN 19 Creatinine 0.70 Estim Creat Clear Calc 70 Estimated GFR > 60 Glucose 116 H POC Capillary Glucose 156 H Calcium 9.0 Total Bilirubin 0.8 AST 25 ALT 23 Alkaline Phosphatase 64 Total Protein 7.0 Albumin 3.7
[2024-06-28 13:47] VITALS: BP 151/66; PULSE 76; RESP 16; TEMP 36.8; O2SAT 98
[2024-06-28] MEDS: DONEPEZIL HCL 10 MG TABLET PO (20:39)
[2024-06-28] MEDS: ATORVASTATIN 20 MG TABLET PO (20:39)
[2024-06-28 21:02] VITALS: BP 147/65; PULSE 82; RESP 18; TEMP 36.7; O2SAT 97
[2024-06-28] MEDS: MORPHINE SULFATE (*CRX) 2 MG/ML INJ IV PUSH (23:51)
[2024-06-29] MEDS: HYDROcodone/acetaminophen (*CRX) 5-325 MG TABLET 1 TAB PO (05:41)
[2024-06-29 06:00] VITALS: BP 178/77; PULSE 91; RESP 20; TEMP 36.8; O2SAT 98
[2024-06-29 07:26] LABS: Basophils Percent Auto 0.3 % (0.2-1.2); Eosinophils Percent Auto 0.2 % (0-4.4); Hematocrit 32.3 % (42.0-52.0); Hemoglobin 11.1 g/dL (14.0-18.0); Immature Granulocyte Absolute 0.04 K/mm3 (0.00-0.031); Immature Granulocyte Percent A 0.3 % (0-0.5); Lymphocytes Absolute Auto 0.56 K/mm3 (0.9-3.2); Lymphocytes Percent Auto 4.7 % (18.3-44.2); Mean Corpuscular HGB Conc 34.4 g/dl (32-36); Mean Corpuscular Hemoglobin 32.3 pg (26-34); Mean Corpuscular Volume 93.9 fl (80-100); Monocytes Absolute Auto 0.7 K/mm3 (0.1-0.6); Neutrophils Absolute Auto 10.6 K/mm3 (1.3-6.7); Neutrophils Percent Auto 88.5 % (45.5-73.1); Platelet Count Result 229 k/mm3 (150-375); Red Blood Count 3.44 M/mm3 (4.6-6.20); Red Cell Distribution Width 12.2 % (11.5-14.5)
[2024-06-29 07:37] LABS: Alanine Aminotransferase 26 U/L (6-50); Albumin Level 3.5 g/dL (3.5-5.1); Alkaline Phosphatase 61 U/L (38-126); Anion Gap 5 mmol/L (4-12); Aspartate Amino Transferase 27 U/L (17-59); Bilirubin,Total 0.7 mg/dL (0.2-1.3); Blood Urea Nitrogen 25 mg/dL (9-20); Calcium 8.9 mg/dL (8.4-10.2); Carbon Dioxide 27 mmol/L (22-30); Chloride 97 mmol/L (98-107); Estimated CRCL calculation 61 ml/min; Estimated Glomerular Filt Rate > 60; Glucose 128 mg/dL (65-110); Potassium 4.1 mmol/L (3.4-5.0); Sodium 129 mmol/L (137-145)
[2024-06-29] MEDS: CHOLECALCIFEROL 1,000 UNITS TABLET 1000 UNITS PO (08:48)
[2024-06-29] MEDS: AMOXICILLIN/CLAVULANATE K 875-125 MG TAB 1 TABLET PO ×2 (08:48→20:03)
[2024-06-29] MEDS: ESCITALOPRAM OXALATE 10 MG TABLET PO (08:49)
[2024-06-29] MEDS: FINASTERIDE 5 MG TABLET PO (08:49)
[2024-06-29] MEDS: TAMSULOSIN HCL 0.4 MG CAPSULE PO (08:49)
[2024-06-29] MEDS: THERAPEUTIC MULTIVITAMINS/MINERALS TAB (*BKC) 1 TABLET PO (08:49)
[2024-06-29] MEDS: LOSARTAN POTASSIUM 25 MG TABLET PO (08:49)
[2024-06-29] MEDS: VITAMIN B COMPLEX CAPSULE 1 CAP PO (08:49)
[2024-06-29] MEDS: FLUTICASONE PROPIONATE 0.05% NA SPR 16 GM BTL (*BKC) 2 SPRAY NASAL (08:50)
[2024-06-29 14:00] VITALS: BP 122/43; PULSE 87; RESP 14; TEMP 36.6; O2SAT 98
--- NOTE | 2024-06-29 15:08 | PM.DS ---
DS: Admitting Diagnosis Discharge Date 06/29/24 Admitting Diagnosis Hematuria DS: Discharge Diagnosis Discharge Diagnosis (1) Cervical stenosis of spinal canal: Code(s): M48.02 - Spinal stenosis, cervical region Status: Acute (2) Urinary tract infection: Code(s): N39.0 - Urinary tract infection, site not specified Status: Acute (3) Hematuria: Code(s): R31.9 - Hematuria, unspecified Status: Acute DS: Summary Hospital Course Reason for hospitalization: Hematuria, UTI Copied from [facility] 06/24 This is an 84 year old male with a significant past medical history of normal pressure hydrocephalus, prostate cancer hyperlipidemia, anxiety, insomnia, sleep apnea, history of rheumatic fever without heart involvement, asthma, GERD, osteoporosis, arthritis, hypertension who presented to the hospital from [facility] with report of hematuria. Most of presenting illness was obtained from the medical record as patient is non-contributory and son who is at bedside is not a good historian for his medical information. According to chart it was reported that he was having urinary frequency and then started noticing blood in his urine. No other information was provided. Work up in the hospital included an abdomen/pelvis CT without contrast which revealed bladder wall thickening, which may be cystitis versus chronic outlet obstruction, bilateral inguinal hernias containing fat. Initial labs revealed a normal WBC 6.2, Hgb 10.7, Na+ 135, otherwise unremarkable. UA shown red colored urine with a turbid appearance, 3+ urine protein, 3+ urine blood, positive nitrate, 1+ urine bilirubin, 3+ leukocytes, >100 urine RBC, > 100 urine WBC, many urine squamous epithelial cells, rare bacteria. Urine culture was obtained and pending. Patient Had thompson catheter placed and flushed with small blood clots returning, given Morphine, and started on Rocephin while in the ER. Urology consulted. Hospital Course: Gulshan Johnston is an 84 year old man with a history of normal pressure hydrocephalus, prostate cancer hyperlipidemia, SHON, anxiety, arthritis, HTN, admitted from [facility] with Hematuria. Urology was consulted during admission. A thompson catheter was placed and he was treated for a UTI. Hematuria resolved and he will follow up with urology in the clinic for a void trial in 2-4 weeks. Should 06/27 Plevis US showed: Urinary bladder decompressed by Thompson catheter, which limits evaluation. Consider repeat examination with the Thompson clamped. 06/28 Pelvis US showed 1: Incompletely distended bladder containing Thompson catheter. Cannot exclude bladder wall thickening. No focal bladder mass or significant debris. 06/26 CT abd/pelvis 1. Bladder wall thickening, which may be secondary to cystitis or chronic outlet obstruction. 2. Bilateral inguinal hernias containing fat. 06/24 UA Red, turbid. Positive nitrites. >100 RBC's, >100 WBCS, many squamous epithelial cells. Urine culture grew pansensitive Klebsiella pneumoniae Hematuria Urology consulted during admission. Thompson catheter was placed and irrigated while in the ER was small blood clots draining. Hematuria resolved 06/27. Thompson catheter to remain in place until follow up with urology Treating UTI as noted antibiotics as noted below Urinary tract infection: UA Showing red turbid urine with 3+ urine protein, 3+ urine blood, positive nitrate, 1+ bilirubin, 3+ leukocyte, greater than 100 urine RBC, greater than 100 urine WBC, many urine squamous epithelial cells seen, rare urine bacteria. Started on empiric Ceftriaxone 06/24, changed to Augmentin 06/27 Augmentin 875/125 BID through 07/03, 10 days Normal pressure hydrocephalus: Oriented x1-2 during admission. Out of bed only with assistance Chronic pain Recent CT 06/17 facial and C-spine showed. Mildly depressed nasal bone fractures. No acute fracture or traumatic malalignment in the cervical spine. But chronic degnerative changes included: Multilevel severe degenerative disc disease and moderate facet arthropathy. Severe bilateral neural foraminal narrowing at C3-4, and left-sided C4-5 neural foraminal narrowing, secondary to degenerative changes. No severe central canal narrowing. Initially taking Vicodin. Changed to celebrex 100 BID & Tylenol PRN with topical menthol prn Continue Celebrex, Tylenol, topical methol prn Would avoid chronic opiates due to risk of fall Creatinine clearance was over 60 Hyponatremia Mild, stable 129-135 during admission Follow on routine labs HTN Blood pressure elevated to 198/70 on admission. Started on losartan 25mg, reduced to 12.5mg. Blood pressure 122/43 day of discharge. Blood pressure also intermittently elevated in the setting of pain Continue losartan 12.5mg daily Pain control Status at Discharge Cognitive/behavioral status at discharge: Oriented x1 Time Spent with Patient Time attestation: Total time spent providing and/or coordinating discharge services: 56 minutes Exam Narrative: A&Ox1. Pleasantly confused. Lungs, clear, RRR, abd Soft, NT/ND. Moves all extremities. neuro exam nonfocal. Thompson catheter in place DS: Data Data Completed and Pending Labs on day of discharge: Labs from last 24 hours 06/29/24 06:41 WBC 12.0 H RBC 3.44 L Hgb 11.1 L Hct 32.3 L MCV 93.9 MCH 32.3 MCHC 34.4 RDW 12.2 Plt Count 229 MPV 9.0 Immature Gran % (Auto) 0.3 Neut % (Auto) 88.5 H Lymph % (Auto) 4.7 L [place] % (Auto) 6.0 Eos % (Auto) 0.2 Baso % (Auto) 0.3 Lymph # (Auto) 0.56 L [place] # (Auto) 0.7 H Eos # (Auto) 0.0 Baso # (Auto) 0.0 Abs Immat Gran (auto) 0.04 H Absolute Neuts (auto) 10.6 H Absolute Nucleated RBC 0.000 Nucleated RBC % 0.0 Sodium 129 L Potassium 4.1 Chloride 97 L Carbon Dioxide 27 Anion Gap 5 BUN 25 H Creatinine 0.80 Estim Creat Clear Calc 61 Estimated GFR > 60 Glucose 128 H Calcium 8.9 Total Bilirubin 0.7 AST 27 ALT 26 Alkaline Phosphatase 61 Total Protein 7.0 Albumin 3.5 Discharge Plan Discharge Attending physician on discharge: Corie Veras Consulting providers: Mariluz, Casey Luo Discharging Clinician: Corie Veras Anticipated Discharge Date/Time: 06/29/24 14:50 Patient Disposition: SNF Activity: november shower Diet: heart healthy Discharge Instructions: Follow up with your PCP in 1-2 weeks. You should also have a repeat blood count in 1-2 weeks. Plan for outpatient urology follow-up for trial of void vs. catheter exchange in the next few weeks. Can discuss option of outpatient cysto at that time if this aligns with patient's goals of care. Patient Language: Luxembourgish Stand Alone Forms: General Discharge Information Discharge Medications: New celecoxib [Celebrex] 100 mg capsule 100 mg PO BID Qty: 60 0RF amoxicillin-pot clavulanate 875-125 mg tablet 1 tablet PO Q12H Qty: 9 0RF losartan 25 mg Tablet 12.5 mg PO DAILY Qty: 30 0RF Bengay Ultra Strength 4-30-10 % Cream 1 applic topical BID PRN (Reason: Muscle/Joint Pain) Qty: 113 0RF Continued atorvastatin 20 mg tablet 20 mg PO HS loperamide 2 mg capsule 2 mg PO Q6H PRN (Reason: Diarrhea) trazodone 50 mg tablet 50 mg PO HS donepezil 10 mg tablet 10 mg PO HS triamcinolone acetonide 0.1 % cream 1 applic TOPICAL DAILY tamsulosin 0.4 mg capsule 0.4 mg PO DAILY omeprazole 20 mg capsule,delayed release(DR/EC) 20 mg PO DAILY albuterol sulfate 90 mcg/actuation HFA aerosol inhaler 2 puff INHALATION Q4H PRN (Reason: Wheezing) finasteride 5 mg tablet 5 mg PO DAILY escitalopram oxalate 10 mg tablet 10 mg PO DAILY fluticasone furoate-vilanterol [Breo Ellipta] 100-25 mcg/dose blister with device 1 inh INHALATION DAILY multivit with min-folic acid [Adult One Daily Multivitamin] 0.4 mg Tablet 1 tablet PO DAILY cholecalciferol (vitamin D3) 25 mcg (1,000 unit) Capsule 25 mcg PO DAILY acetaminophen 650 mg Tablet 650 mg PO Q4H PRN (Reason: Pain) vitamin B complex Tablet 1 tablet PO DAILY fluticasone propionate 50 mcg/actuation [place],Suspension 2 spray INTRANASAL DAILY Rx Instructions: administer into each nostril cranberry 250 mg Tablet 250 mg PO TID Other Ambulatory Orders: Basic Metabolic Panel (Routine) Timeframe: 1 Week Location: Determined by Patient Ordered By: Corie Veras Complete Blood Count with Diff (Routine) Timeframe: 1 Week Location: Determined by Patient Ordered By: Corie Veras Date of admission: 06/25/24 16:02 Primary Care Provider: PHYSICIAN NOT ON STAFF,NONSTAFF Admitting Provider: Sommer Truong Attending physician on admission: Corie Veras Condition: Stable Quality VTE Prophylaxis VTE prophylaxis: pharmacologic ordered Hospitalist MIPS Heart Failure (Exclusion) Patient has history of Heart Transplant or Left Ventricular Assistive Device?: No IF YES, STOP HERE Heart Failure (Qualifier) Patient has current or prior documentation of LVEF less than or equal to 40%, or mod/servere depressed LVSF?: No IF NO, STOP HERE
[2024-06-29] MEDS: CELECOXIB 100 MG CAPSULE PO (17:25)
[2024-06-29] MEDS: DONEPEZIL HCL 10 MG TABLET PO (20:03)
[2024-06-29] MEDS: ATORVASTATIN 20 MG TABLET PO (20:03)
== END 2024-06-29 20:00 | DRG 690 ==
LOC: ANHED 06-24 06:02 → ANH3MEDSUR 06-24 07:38
PROVIDERS: Nurse Practitioner Acute Care; Nurse Practitioner Adult Health; Admitting Provider Internal Medicine; Emergency Provider Emergency Medicine; Visit Provider Nurse Practitioner Acute Care
DX: N39.0 Urinary tract infection, site not specified (principal); G91.2 (Idiopathic) normal pressure hydrocephalus; E87.1 Hypo-osmolality and hyponatremia; R31.9 Hematuria, unspecified; R33.8 Other retention of urine; N40.1 Benign prostatic hyperplasia with lower urinary tract symptoms; I10 Essential (primary) hypertension; C61 Malignant neoplasm of prostate; J45.909 Unspecified asthma, uncomplicated; E78.5 Hyperlipidemia, unspecified; K21.9 Gastro-esophageal reflux disease without esophagitis; B96.1 Klebsiella pneumoniae [K. pneumoniae] as the cause of diseases classified elsewhere; M19.90 Unspecified osteoarthritis, unspecified site; M48.02 Spinal stenosis, cervical region; M81.0 Age-related osteoporosis without current pathological fracture; G47.30 Sleep apnea, unspecified; F41.9 Anxiety disorder, unspecified
CPT/HCPCS: 36415; 74176; 76857; 80053; 81001; 82948; 83036; 84443; 85014; 85018; 85025; 85610; 85730; 87086; 87186; 96365; 96375; 96376; 97110; 97161; 97165; 97530; 97535; 99285; A9270; G0378; J0360; J0696; J2270

== ENCOUNTER 2024-07-04 04:22 | Emergency (ER) | payer MEDICARE, SELFPAY ==
--- NOTE | ~2024-07-04 | CT_ITS ---
CT head without contrast Indication: Head injury COMPARISON: 06/17/2024 Technique: Serial scans were obtained through the brain without the administration of contrast. Dose reduction technique was used on this scan by utilizing automated exposure control and iterative recon struction technique. The dose-length product (DLP) was 756.67 mGy-cm. Findings: There is no evidence of intracranial hemorrhage, mass lesion, or acute infarct. The ventri cles and subarachnoid spaces are dilated, consistent with moderate atrophy. Low attenuation regions are seen within the periventricular white matter bilaterally, likely representing changes from chroni c microvascular ischemic disease. There is no evidence of edema, mass effect or midline shift. The visualized paranasal sinuses and mastoid air cells are clear. Impression: No intracranial hemorrhage, mass, or acute infarct. Atrophy and chronic white matter changes, as above. Reviewed, dictated and finalized at [facility]. OPSYCHOLOGY DIRECTOR Impression: No intracranial hemorrhage, mass, or acute infarct. Atrophy and chronic white matter changes, as above.
--- NOTE | ~2024-07-04 | CT_ITS ---
Noncontrast CT scan of the cervical spine Technique: Multiple contiguous axial [address] images of the cervical spine were obtained and rec onstructed in 2D sagittal and coronal planes on the acquisition scanner. Dose reduction technique was used on this scan by utilizing automated exposure control, adjustment of the mA and/or kV according to patient size. The dose-length product (DLP) was 442.78 mGy-cm. Clinical History: Pain COMPARISON: 06/17/2024 Findings: No fractures or dislocations. Osseous alignment is stable from prior exam. Stable degenera tive disc changes, severe at C5-C6 and C6-C7. Stable degenerative change at the articulation of the o dontoid process with the anterior arch of C1. Stable facet arthropathy throughout the cervical spine. Severe bilateral neural foraminal narrowing at C3-C4 present. There is advanced bilateral neural for aminal narrowing, left worse than right, at C4-C5. There is probable bilateral neural foraminal narro wing at C5-C6, and right neural foraminal narrowing at C6-C7. No prevertebral soft tissue swelling. Impression: No fracture or subluxation of the cervical spine. Stable degenerative spondylosis. Reviewed, dictated and finalized at [facility]. K SUPERVISOR Impression: No fracture or subluxation of the cervical spine. Stable degenerative spondylosis.
[2024-07-04 04:28] VITALS: BP 162/62; PULSE 69; RESP 20; TEMP 36.4; O2SAT 100
--- NOTE | 2024-07-04 05:45 | ED.GENADULT ---
HPI - General Adult General Chief complaint: Fall Stated complaint: Fall-L shoulder and neck pain Time Seen by Provider: 07/04/24 04:43 History of Present Illness HPI narrative: patient is a 84-year-old gentleman presents emergency department with chief complaint of unwitnessed fall. Patient is resident a [facility] and was found on the ground complaining of neck pain. Patient is not on blood thinners facility was unsure of his baseline mental status. Patient's prior records were reviewed in the patient was found to be alert oriented x1 when he left the hospital recently after a admission. Related Data Home Medications ?Medication ?Instructions ?Recorded ?Confirmed ?Last Taken ?Type acetaminophen 650 mg tablet 650 mg PO Q4H PRN Pain 06/24/24 06/24/24 Unknown History albuterol sulfate 90 mcg/actuation 2 puff inhalation Q4H PRN Wheezing 06/24/24 06/24/24 Unknown History aerosol inhaler atorvastatin 20 mg tablet 20 mg PO HS 06/24/24 06/24/24 Unknown History cholecalciferol (vitamin D3) 25 25 mcg PO DAILY 06/24/24 06/24/24 Unknown History mcg (1,000 unit) capsule cranberry extract 250 mg tablet 250 mg PO TID 06/24/24 06/24/24 Unknown History donepezil 10 mg tablet 10 mg PO HS 06/24/24 06/24/24 Unknown History escitalopram oxalate 10 mg tablet 10 mg PO DAILY 06/24/24 06/24/24 Unknown History finasteride 5 mg tablet 5 mg PO DAILY 06/24/24 06/24/24 Unknown History fluticasone furoate 100 1 inh inhalation DAILY 06/24/24 06/24/24 Unknown History mcg-vilanterol 25 mcg/dose inhalation powder (Breo Ellipta) fluticasone propionate 50 2 spray intranasal DAILY 06/24/24 06/24/24 Unknown History mcg/actuation nasal spray,suspension loperamide 2 mg capsule 2 mg PO Q6H PRN Diarrhea 06/24/24 06/24/24 Unknown History multivitamin with minerals-folic 1 tablet PO DAILY 06/24/24 06/24/24 Unknown History acid 0.4 mg tablet omeprazole 20 mg capsule,delayed 20 mg PO DAILY 06/24/24 06/24/24 Unknown History release tamsulosin 0.4 mg capsule 0.4 mg PO DAILY 06/24/24 06/24/24 Unknown History trazodone 50 mg tablet 50 mg PO HS 06/24/24 06/24/24 Unknown History triamcinolone acetonide 0.1 % 1 applic topical DAILY 06/24/24 06/24/24 Unknown History topical cream vitamin B complex 1 tablet PO DAILY 06/24/24 06/24/24 Unknown History Allergies Allergy/AdvReac Type Severity Reaction Status Date / Time memantine (From Namenda) Allergy Unknown Verified 07/04/24 06:04 Review of Systems Review of Systems: A 10 system review of systems was completed on the patient and is negative except for what is stated in the HPI. Nursing and ancillary documentation was reviewed. [facility] Past Medical History Medical History Dementia Hypertension Arthritis Osteoporosis GERD (gastroesophageal reflux disease) Asthma Rheumatic fever without heart involvement Sleep apnea Insomnia Anxiety Hyperlipidemia Prostate cancer Normal pressure hydrocephalus Surgical History Surgical History History of back surgery Social History Social History Smoking status: Never smoker Alcohol intake: never Substance use: never Substance use type: does not use Do You Feel Safe in your Home?: Yes Lack of Transportation: No Lack of Food: Never True Current Housing: I Have Housing Concerned About Future Housing: No Difficulty Paying Gas/Electric Bills: No Difficulty Paying for Meds: No Currently Unemployed: No Education: High School Diploma/GED Difficulty w/ Childcare or Family Care: Decline to Answer Living arrangements: intermediate Additional living arrangements comments: [facility] since end of April 2024; previously living independently at home Spiritual care concerns: No Exam Narrative: GENERAL: Well-appearing, well-nourished, and in no acute distress. HEAD: Normocephalic, atraumatic. EYES: PERRLA and EOMI. ENT: Nares clear, no rhinorrhea or epistaxis. Mucous membranes moist. NECK: Supple. CHEST: Clear to auscultation. No respiratory distress. HEART: Regular rate and rhythm. No murmur heard. Normal peripheral pulses. ABDOMEN: Soft, nontender, nondistended, normal active bowel sounds. EXTREMITIES: Normal range of motion. No edema. SKIN: Warm, dry, no rash. NEURO: No focal deficits. Alert and oriented x1-2. PSYCH: Normal mood and affect. Course Vital Signs Vital signs: Vital Signs Temperature 36.4 C L 07/04/24 04:28 Pulse Rate 69 07/04/24 04:28 Respiratory Rate 20 07/04/24 04:28 Blood Pressure 162/62 H 07/04/24 04:28 Pulse Oximetry 100 07/04/24 04:28 Oxygen Delivery Room Air 07/04/24 04:28 Temperature 36.4 C L 07/04/24 04:28 Pulse Rate 66 07/04/24 06:24 Respiratory Rate 16 07/04/24 06:24 Blood Pressure 135/69 07/04/24 06:24 Pulse Oximetry 97 07/04/24 06:24 Oxygen Delivery Room Air 07/04/24 04:28 Medical Decision Making MDM Narrative Medical decision making narrative: differential diagnosis includes intracranial hemorrhage, cervical spine fracture CT head was negative CT C-spine showed no evidence of fracture. Vital Signs Vital Signs: Vital Signs Temperature 36.4 C L 07/04/24 04:28 Pulse Rate 69 07/04/24 04:28 Respiratory Rate 20 07/04/24 04:28 Blood Pressure 162/62 H 07/04/24 04:28 Pulse Oximetry 100 07/04/24 04:28 Oxygen Delivery Room Air 07/04/24 04:28 Temperature 36.4 C L 07/04/24 04:28 Pulse Rate 66 07/04/24 06:24 Respiratory Rate 16 07/04/24 06:24 Blood Pressure 135/69 07/04/24 06:24 Pulse Oximetry 97 07/04/24 06:24 Oxygen Delivery Room Air 07/04/24 04:28 Discharge Plan Discharge Clinical Impression: Ground-level fall, Neck pain, Head injury Patient Disposition: Home, Self-Care Condition: Stable Instructions: Antibiotic Form, Head Injury (ED) Patient Language: Croatian Prescriptions: No Action atorvastatin 20 mg tablet 20 mg PO HS loperamide 2 mg capsule 2 mg PO Q6H PRN (Reason: Diarrhea) trazodone 50 mg tablet 50 mg PO HS donepezil 10 mg tablet 10 mg PO HS triamcinolone acetonide 0.1 % cream 1 applic TOPICAL DAILY tamsulosin 0.4 mg capsule 0.4 mg PO DAILY omeprazole 20 mg capsule,delayed release(DR/EC) 20 mg PO DAILY albuterol sulfate 90 mcg/actuation HFA aerosol inhaler 2 puff INHALATION Q4H PRN (Reason: Wheezing) finasteride 5 mg tablet 5 mg PO DAILY escitalopram oxalate 10 mg tablet 10 mg PO DAILY fluticasone furoate-vilanterol [Breo Ellipta] 100-25 mcg/dose blister with device 1 inh INHALATION DAILY multivit with min-folic acid 0.4 mg Tablet 1 tablet PO DAILY cholecalciferol (vitamin D3) 25 mcg (1,000 unit) Capsule 25 mcg PO DAILY acetaminophen 650 mg Tablet 650 mg PO Q4H PRN (Reason: Pain) vitamin B complex Tablet 1 tablet PO DAILY fluticasone propionate 50 mcg/actuation [place],Suspension 2 spray INTRANASAL DAILY Rx Instructions: administer into each nostril cranberry extract 250 mg Tablet 250 mg PO TID losartan 25 mg Tablet 12.5 mg PO DAILY Qty: 30 0RF [place] Ultra Strength 4-30-10 % Cream 1 applic topical BID PRN (Reason: Muscle/Joint Pain) Qty: 113 0RF celecoxib [Celebrex] 100 mg capsule 100 mg PO BID Qty: 60 0RF amoxicillin-pot clavulanate 875-125 mg tablet 1 tablet PO Q12H Qty: 9 0RF Follow-up/Referrals: PHYSICIAN NOT ON STAFF,NONSTAFF [Primary Care Provider] - Time of Disposition: 06:45
[2024-07-04 06:24] VITALS: BP 135/69; PULSE 66; RESP 16; O2SAT 97
[2024-07-04 06:49] VITALS: BP 135/96; PULSE 67; RESP 15; O2SAT 97
== END 2024-07-04 07:11 ==
PROVIDERS: Emergency Provider Emergency Medicine
DX: F03.90 Unspecified dementia, unspecified severity, without behavioral disturbance, psychotic disturbance, mood disturbance, and anxiety (principal); I10 Essential (primary) hypertension; J45.909 Unspecified asthma, uncomplicated; E78.5 Hyperlipidemia, unspecified; K21.9 Gastro-esophageal reflux disease without esophagitis; M19.90 Unspecified osteoarthritis, unspecified site; M81.0 Age-related osteoporosis without current pathological fracture; G47.30 Sleep apnea, unspecified; G91.2 (Idiopathic) normal pressure hydrocephalus; Z85.46 Personal history of malignant neoplasm of prostate; Z79.899 Other long term (current) drug therapy; W19.XXXA Unspecified fall, initial encounter
CPT/HCPCS: 70450; 72125; 99284

== ENCOUNTER → 2024-07-06 07:44 | Emergency (ER) | payer MEDICARE, SELFPAY ==
--- NOTE | ~2024-07-06 | CT_ITS ---
Non-contrast Head CT History: Status post fall COMPARISON: 07/04/2024 Technique: Axial non-contrast imaging of the brain was performed. Dose reduction technique was used on this scan by utilizing automated exposure control and iterative reconstruction technique. The dose -length product (DLP) was 1740.33 mGy-cm. Findings: Exam degraded by motion artifact. There is no evidence of intracranial hemorrhage, mass les ion, or acute infarct. Brain parenchyma appears normal. The ventricles and subarachnoid spaces are stable. The calvarium appears normal. The visualized paranasal sinuses and mastoid air cells are ashtyn ar. Impression: No significant abnormality seen. Exam degraded by motion artifact. Reviewed, dictated and finalized at location M. LINE SERVICE ATTENDANT Impression: No significant abnormality seen. Exam degraded by motion artifact.
--- NOTE | ~2024-07-06 | XR_ITS ---
XR hip RT 2V w AP pelvis 07/06/2024 09:33 Indication: Right hip pain Procedure: AP pelvis and 2 views right hip Comparison: No prior studies for comparison. Findings: There is mild symmetric osteoarthritis of the hips. Osteopenia. Pelvic rings are intact. Th ere is atherosclerosis. No acute fracture or traumatic malalignment. There is lower lumbar spondylosi s partially visualized. Impression: 1: Mild bilateral osteoarthritis of the hips. Reviewed, dictated and finalized at location [] BRUSH MAKER Impression: 1: Mild bilateral osteoarthritis of the hips.
--- NOTE | ~2024-07-06 | CT_ITS ---
Noncontrast CT scan of the cervical spine Technique: Multiple contiguous axial [address] images of the cervical spine were obtained and rec onstructed in 2D sagittal and coronal planes on the acquisition scanner. Dose reduction technique was used on this scan by utilizing automated exposure control, adjustment of the mA and/or kV according to patient size. The dose-length product (DLP) was 883.07 mGy-cm. Clinical History: Pain COMPARISON: 07/04/2024 Findings: No fractures or dislocations. Osseous alignment is unchanged. Stable degenerative spondylo sis in the cervical spine as compared to recent prior exam. No prevertebral soft tissue swelling. Impression: No fracture or subluxation of the cervical spine. Stable degenerative spondylosis. Reviewed, dictated and finalized at [facility]. TOR TRAILER TECHNICIAN Impression: No fracture or subluxation of the cervical spine. Stable degenerative spondylosis.
[2024-07-06 07:38] VITALS: BP 170/78; PULSE 84; RESP 18; TEMP 36.4; O2SAT 99
--- NOTE | 2024-07-06 08:46 | ED_ITS ---
HPI - General Adult General Chief complaint: Fall Stated complaint: glf Time Seen by Provider: 07/06/24 07:46 History of Present Illness HPI narrative: Patient is an 84-year-old male with history of dementia who presents ER after a suspected fall from bed. Found sitting on the ground. Has had several falls recently and has old bruising to the face. Patient has no reports of pain at this time but did mention to nursing staff that is right hip hurts. Related Data Home Medications ?Medication ?Instructions ?Recorded ?Confirmed ?Last Taken ?Type acetaminophen 650 mg tablet 650 mg PO Q4H PRN Pain 06/24/24 06/24/24 Unknown History albuterol sulfate 90 mcg/actuation 2 puff inhalation Q4H PRN Wheezing 06/24/24 06/24/24 Unknown History aerosol inhaler atorvastatin 20 mg tablet 20 mg PO HS 06/24/24 06/24/24 Unknown History cholecalciferol (vitamin D3) 25 25 mcg PO DAILY 06/24/24 06/24/24 Unknown History mcg (1,000 unit) capsule cranberry extract 250 mg tablet 250 mg PO TID 06/24/24 06/24/24 Unknown History donepezil 10 mg tablet 10 mg PO HS 06/24/24 06/24/24 Unknown History escitalopram oxalate 10 mg tablet 10 mg PO DAILY 06/24/24 06/24/24 Unknown History finasteride 5 mg tablet 5 mg PO DAILY 06/24/24 06/24/24 Unknown History fluticasone furoate 100 1 inh inhalation DAILY 06/24/24 06/24/24 Unknown History mcg-vilanterol 25 mcg/dose inhalation powder (Breo Ellipta) fluticasone propionate 50 2 spray intranasal DAILY 06/24/24 06/24/24 Unknown History mcg/actuation nasal spray,suspension loperamide 2 mg capsule 2 mg PO Q6H PRN Diarrhea 06/24/24 06/24/24 Unknown History multivitamin with minerals-folic 1 tablet PO DAILY 06/24/24 06/24/24 Unknown History acid 0.4 mg tablet omeprazole 20 mg capsule,delayed 20 mg PO DAILY 06/24/24 06/24/24 Unknown History release tamsulosin 0.4 mg capsule 0.4 mg PO DAILY 06/24/24 06/24/24 Unknown History trazodone 50 mg tablet 50 mg PO HS 06/24/24 06/24/24 Unknown History triamcinolone acetonide 0.1 % 1 applic topical DAILY 06/24/24 06/24/24 Unknown History topical cream vitamin B complex 1 tablet PO DAILY 06/24/24 06/24/24 Unknown History Allergies Allergy/AdvReac Type Severity Reaction Status Date / Time memantine (From Namenda) Allergy Unknown Verified 07/04/24 06:04 Review of Systems Review of Systems: ROS unobtainable: Yes unobtainable due to mental status PMFSH Past Medical History Medical History Dementia Hypertension Arthritis Osteoporosis GERD (gastroesophageal reflux disease) Asthma Rheumatic fever without heart involvement Sleep apnea Insomnia Anxiety Hyperlipidemia Prostate cancer Normal pressure hydrocephalus Surgical History Surgical History History of back surgery Social History Social History Smoking status: Never smoker Alcohol intake: never Substance use: never Substance use type: does not use Do You Feel Safe in your Home?: Yes Lack of Transportation: No Lack of Food: Never True Current Housing: I Have Housing Concerned About Future Housing: No Difficulty Paying Gas/Electric Bills: No Difficulty Paying for Meds: No Currently Unemployed: No Education: High School Diploma/GED Difficulty w/ Childcare or Family Care: Decline to Answer Living arrangements: group home Additional living arrangements comments: [facility] since end of April 2024; previously living independently at home Spiritual care concerns: No Exam Narrative: GENERAL: Well-appearing, well-nourished, and in no acute distress. HEAD: Normocephalic, atraumatic. ENT: Mucous membranes moist. Old bruising beneath eyes bilaterally. NECK: Supple. C-spine immobilized. CHEST: Clear to auscultation. No respiratory distress. HEART: Regular rate and rhythm. Normal peripheral pulses. ABDOMEN: Soft, nontender, nondistended. EXTREMITIES: Normal range of motion. No edema. SKIN: Warm, dry, no rash. NEURO: Alert and oriented x2. PSYCH: Normal mood and affect. Course Course Emergency Course: Patient resting comfortably. No intracranial injury, no cervical injury, no hip injury. Appropriate for discharge back to facility. Vital Signs Vital signs: Vital Signs Temperature 97.6 F 07/06/24 07:38 Pulse Rate 84 07/06/24 07:38 Respiratory Rate 18 07/06/24 07:38 Blood Pressure 170/78 H 07/06/24 07:38 Pulse Oximetry 99 07/06/24 07:38 Oxygen Delivery Room Air 07/06/24 07:38 Temperature 97.6 F 07/06/24 07:38 Pulse Rate 85 07/06/24 09:10 Respiratory Rate 16 07/06/24 09:10 Blood Pressure 161/92 H 07/06/24 09:10 Pulse Oximetry 100 07/06/24 09:10 Oxygen Delivery Room Air 07/06/24 07:38 Medical Decision Making Vital Signs Vital Signs: Vital Signs Temperature 97.6 F 07/06/24 07:38 Pulse Rate 84 07/06/24 07:38 Respiratory Rate 18 07/06/24 07:38 Blood Pressure 170/78 H 07/06/24 07:38 Pulse Oximetry 99 07/06/24 07:38 Oxygen Delivery Room Air 07/06/24 07:38 Temperature 97.6 F 07/06/24 07:38 Pulse Rate 85 07/06/24 09:10 Respiratory Rate 16 07/06/24 09:10 Blood Pressure 161/92 H 07/06/24 09:10 Pulse Oximetry 100 07/06/24 09:10 Oxygen Delivery Room Air 07/06/24 07:38 Imaging Data Radiologist's impression: ITS Impressions Head CT 07/06/24 08:15 Impression: No significant abnormality seen. Exam degraded by motion artifact. Cervical Spine CT 07/06/24 08:18 Impression: No fracture or subluxation of the cervical spine. Stable degenerative spondylosis. Hip/Pelvis X-Ray 07/06/24 09:37 Impression: 1: Mild bilateral osteoarthritis of the hips. Discharge Plan Discharge Clinical Impression: Accident due to mechanical fall without injury Patient Disposition: Home, Self-Care Condition: Stable Instructions: Fall Prevention for Older Adults (ED) Additional Instructions: return the ER if you have fever 100.4? F, you cannot keep down food or water, or you have additional concerns. Patient Language: Romanian Prescriptions: No Action atorvastatin 20 mg tablet 20 mg PO HS loperamide 2 mg capsule 2 mg PO Q6H PRN (Reason: Diarrhea) trazodone 50 mg tablet 50 mg PO HS donepezil 10 mg tablet 10 mg PO HS triamcinolone acetonide 0.1 % cream 1 applic TOPICAL DAILY tamsulosin 0.4 mg capsule 0.4 mg PO DAILY omeprazole 20 mg capsule,delayed release(DR/EC) 20 mg PO DAILY albuterol sulfate 90 mcg/actuation HFA aerosol inhaler 2 puff INHALATION Q4H PRN (Reason: Wheezing) finasteride 5 mg tablet 5 mg PO DAILY escitalopram oxalate 10 mg tablet 10 mg PO DAILY fluticasone furoate-vilanterol [Breo Ellipta] 100-25 mcg/dose blister with device 1 inh INHALATION DAILY multivit with min-folic acid 0.4 mg Tablet 1 tablet PO DAILY cholecalciferol (vitamin D3) 25 mcg (1,000 unit) Capsule 25 mcg PO DAILY acetaminophen 650 mg Tablet 650 mg PO Q4H PRN (Reason: Pain) vitamin B complex Tablet 1 tablet PO DAILY fluticasone propionate 50 mcg/actuation [place],Suspension 2 spray INTRANASAL DAILY Rx Instructions: administer into each nostril cranberry extract 250 mg Tablet 250 mg PO TID losartan 25 mg Tablet 12.5 mg PO DAILY Qty: 30 0RF Bengay Ultra Strength 4-30-10 % Cream 1 applic topical BID PRN (Reason: Muscle/Joint Pain) Qty: 113 0RF celecoxib [Celebrex] 100 mg capsule 100 mg PO BID Qty: 60 0RF amoxicillin-pot clavulanate 875-125 mg tablet 1 tablet PO Q12H Qty: 9 0RF Follow-up/Referrals: UNKNOWN,DOCTOR [Primary Care Provider] -
[2024-07-06 09:10] VITALS: BP 161/92; PULSE 85; RESP 16; O2SAT 100
== END | disposition home or self-care (01) ==
PROVIDERS: Emergency Provider Emergency Medicine
DX: Z03.89 Encounter for observation for other suspected diseases and conditions ruled out (principal); M16.0 Bilateral primary osteoarthritis of hip; F03.90 Unspecified dementia, unspecified severity, without behavioral disturbance, psychotic disturbance, mood disturbance, and anxiety; I10 Essential (primary) hypertension; K21.9 Gastro-esophageal reflux disease without esophagitis; J45.909 Unspecified asthma, uncomplicated; G47.30 Sleep apnea, unspecified; F41.9 Anxiety disorder, unspecified; E78.5 Hyperlipidemia, unspecified; W19.XXXA Unspecified fall, initial encounter
CPT/HCPCS: 70450; 72125; 73502; 99284

== ENCOUNTER 2024-07-31 | Emergency (ER) | payer MEDICARE, SELFPAY ==
[2024-07-30 23:58] VITALS: BP 163/76; PULSE 71; RESP 16; TEMP 36.4; O2SAT 97
[2024-07-31] VITALS (25 sets, daily range): BP systolic 129–202; BP diastolic 58–128; PULSE 71–86; RESP 0–25; TEMP 36.6; O2SAT 95–100
--- NOTE | ~2024-07-31 | CT_ITS ---
CT head without contrast Indication: Head injury COMPARISON: 07/06/2024 Technique: Serial scans were obtained through the brain without the administration of contrast. Dose reduction technique was used on this scan by utilizing automated exposure control and iterative recon struction technique. The dose-length product (DLP) was 756.67 mGy-cm. Findings: There is no evidence of intracranial hemorrhage, mass lesion, or acute infarct. The ventri cles and subarachnoid spaces are dilated, consistent with moderate atrophy. Low attenuation regions are seen within the periventricular white matter bilaterally, likely representing changes from chroni c microvascular ischemic disease. There is no evidence of edema, mass effect or midline shift. The visualized paranasal sinuses and mastoid air cells are clear. Impression: No intracranial hemorrhage, mass, or acute infarct. Atrophy and chronic white matter changes, as above. Reviewed, dictated and finalized at location . E AND DESK FINISHER Impression: No intracranial hemorrhage, mass, or acute infarct. Atrophy and chronic white matter changes, as above.
--- NOTE | ~2024-07-31 | CT_ITS ---
Noncontrast CT scan of the cervical spine Technique: Multiple contiguous axial [address] images of the cervical spine were obtained and rec onstructed in 2D sagittal and coronal planes on the acquisition scanner. Dose reduction technique was used on this scan by utilizing automated exposure control, adjustment of the mA and/or kV according to patient size. The dose-length product (DLP) was 363.07 mGy-cm. Clinical History: Pain COMPARISON: 07/06/2024 Findings: No acute fractures or dislocations. Osseous alignment is stable from prior exam. Stable de generative disc change, worst at C5-C6 and C6-C7. Stable degenerative change at the articulation of t he odontoid process with the anterior arch of C1. Scattered bilateral facet joint degenerative change s are present. Probable minimal left neural foraminal narrowing at C2-C3. There is bilateral neural f oraminal narrowing at C3-C4. There is bilateral neural foraminal narrowing at C4-C5, C5-C6, and C6-C7 . No prevertebral soft tissue swelling. Impression: No fracture or subluxation of the cervical spine. Stable degenerative spondylosis. Reviewed, dictated and finalized at [facility]. ING WORKER Impression: No fracture or subluxation of the cervical spine. Stable degenerative spondylosis.
--- NOTE | ~2024-07-31 | XR_ITS ---
Left Hand Technique: PA, oblique, and lateral views were obtained. Clinical History: Injury Findings: No acute fracture or dislocation is seen. Osseous alignment is anatomic. There are mild deg enerative changes of the DIP joints of the fingers. Soft tissues are unremarkable. Impression: Mild degenerative changes, as above. Reviewed, dictated and finalized at [facility]. L TECHNICIAN Impression: Mild degenerative changes, as above.
--- NOTE | ~2024-07-31 | XR_ITS ---
Right Hand Technique: PA, oblique, and lateral views were obtained. Clinical History: Injury Findings: No acute fracture or dislocation is seen. Osseous alignment is anatomic. There is degenerat frankie change of the fifth DIP joint. Soft tissues are unremarkable. Impression: No acute abnormalities. Degenerative change of the fifth DIP joint. Reviewed, dictated and finalized at [facility]. AGING SUPERVISOR Impression: No acute abnormalities. Degenerative change of the fifth DIP joint.
--- NOTE | 2024-07-31 00:15 | PC.NURSE ---
old thompson catheter removed and replaced with new thompson catheter.
--- NOTE | 2024-07-31 00:22 | ED_ITS ---
HPI - Fall General Chief Complaint: Fall Stated Complaint: fall Time Seen by Provider: 07/31/24 00:05 History of Present Illness HPI Narrative: Patient is an 84-year-old male who presents to the emergency department this evening from his nursing facility status post a ground level fall. Patient is normally alert and oriented to person only which is his baseline secondary to history of dementia. Fall was unwitnessed and patient did sustain a right eyebrow/forehead abrasion. Tetanus was updated at our facility within the patient also does have a chronic indwelling Gilmore catheter and family member present at bedside believes that it was last changed 2-3 weeks ago. Gilmore does have bloody urine, no evidence of any blood clots. Patient is currently denying any symptoms or pain including dysuria. Related Data Home Medications ?Medication ?Instructions ?Recorded ?Confirmed ?Last Taken ?Type acetaminophen 650 mg tablet 650 mg PO Q4H PRN Pain 06/24/24 06/24/24 Unknown History albuterol sulfate 90 mcg/actuation 2 puff inhalation Q4H PRN Wheezing 06/24/24 06/24/24 Unknown History aerosol inhaler atorvastatin 20 mg tablet 20 mg PO HS 06/24/24 06/24/24 Unknown History cholecalciferol (vitamin D3) 25 25 mcg PO DAILY 06/24/24 06/24/24 Unknown History mcg (1,000 unit) capsule cranberry extract 250 mg tablet 250 mg PO TID 06/24/24 06/24/24 Unknown History donepezil 10 mg tablet 10 mg PO HS 06/24/24 06/24/24 Unknown History escitalopram oxalate 10 mg tablet 10 mg PO DAILY 06/24/24 06/24/24 Unknown History finasteride 5 mg tablet 5 mg PO DAILY 06/24/24 06/24/24 Unknown History fluticasone furoate 100 1 inh inhalation DAILY 06/24/24 06/24/24 Unknown History mcg-vilanterol 25 mcg/dose inhalation powder (Breo Ellipta) fluticasone propionate 50 2 spray intranasal DAILY 06/24/24 06/24/24 Unknown History mcg/actuation nasal spray,suspension loperamide 2 mg capsule 2 mg PO Q6H PRN Diarrhea 06/24/24 06/24/24 Unknown History multivitamin with minerals-folic 1 tablet PO DAILY 06/24/24 06/24/24 Unknown History acid 0.4 mg tablet omeprazole 20 mg capsule,delayed 20 mg PO DAILY 06/24/24 06/24/24 Unknown History release tamsulosin 0.4 mg capsule 0.4 mg PO DAILY 06/24/24 06/24/24 Unknown History trazodone 50 mg tablet 50 mg PO HS 06/24/24 06/24/24 Unknown History triamcinolone acetonide 0.1 % 1 applic topical DAILY 06/24/24 06/24/24 Unknown History topical cream vitamin B complex 1 tablet PO DAILY 06/24/24 06/24/24 Unknown History Allergies Allergy/AdvReac Type Severity Reaction Status Date / Time memantine (From Namenda) Allergy Unknown Verified 07/04/24 06:04 Review of Systems Review of Systems: All systems are reviewed and are negative unless stated otherwise in the HPI. [facility] Past Medical History Medical History Dementia Hypertension Arthritis Osteoporosis GERD (gastroesophageal reflux disease) Asthma Rheumatic fever without heart involvement Sleep apnea Insomnia Anxiety Hyperlipidemia Prostate cancer Normal pressure hydrocephalus Surgical History Surgical History History of back surgery Social History Social History Smoking status: Never smoker Alcohol intake: never Substance use: never Substance use type: does not use Do You Feel Safe in your Home?: Yes Lack of Transportation: No Lack of Food: Never True Current Housing: I Have Housing Concerned About Future Housing: No Difficulty Paying Gas/Electric Bills: No Difficulty Paying for Meds: No Currently Unemployed: No Education: High School Diploma/GED Difficulty w/ Childcare or Family Care: Decline to Answer Living arrangements: senior living Additional living arrangements comments: [facility] since end of April 2024; previously living independently at home Spiritual care concerns: No Exam Narrative: General: Alert, awake, afebrile, in no acute distress. HEENT: PERRL, no rhinorrhea, no post nasal drip, oropharynx clear. Neck: Trachea midline, no JVD, no lymphadenopathy. Cardiovascular: Regular rate and rhythm, no murmurs, rubs or gallops, no peripheral edema. Respiratory: Clear to auscultation bilaterally, no tachypnea, no wheezing, no rhonchi, no rubs, no respiratory distress. Abdomen: Soft, nontender, nondistended, no rebound, no guarding, no peritoneal signs. Musculoskeletal: No joint swelling or deformity, normal muscle tone. Skin: No rashes or petechia, no signs of infection. Psychiatric: Normal behavior and judgment for situation. Neurological: Alert and oriented to person only which is at baseline. Follows all commands. No focal deficits, speech is clear and fluent. Course Vital Signs Vital signs: Vital Signs Temperature 97.6 F 07/30/24 23:58 Pulse Rate 71 07/30/24 23:58 Respiratory Rate 16 07/30/24 23:58 Blood Pressure 163/76 H 07/30/24 23:58 Pulse Oximetry 97 07/30/24 23:58 Oxygen Delivery Room Air 07/30/24 23:58 Temperature 97.9 F 07/31/24 02:45 Pulse Rate 71 07/31/24 02:45 Respiratory Rate 17 07/31/24 02:45 Blood Pressure 153/59 H 07/31/24 02:45 Pulse Oximetry 99 07/31/24 02:45 Oxygen Delivery Room Air 07/30/24 23:58 MDM - Fall MDM Narrative Medical decision making narrative: The patient was evaluated by myself in the emergency department. History is obtained from EMS report and physical exam was performed. External medical records were reviewed at this time. Patient's Gilmore catheter was exchanged. Urinalysis was obtained at this time revealing hematuria with 3+ blood and greater than 100 rbc's, 10-15 white blood cells and 3+ leuk esterases. Patient was recently treated for urinary tract infection on June 24 with positive nitrites and greater than 100 rbc's. Given patient's history of chronic indwelling Gilmore catheter, lack of symptoms including dysuria and improvement from urinalysis obtained June 24, 2024, no antibiotics were administered at this time. Imaging studies obtained included bilateral hand x-rays and CT brain and C-spine without IV contrast which was independently interpreted by me revealing no acute process, imaging is currently pending final radiology interpretation. Differential diagnosis considerations include intracranial hemorrhage, fractures, dislocations, urinary tract infection. Comorbidities impacting this visit include chronic indwelling Gilmore catheter. I have evaluated and discussed social determinants of health with the patient that could potentially impact subsequent diagnosis and treatment plans. On repeat assessment of the patient, reevaluation revealed that the patient is doing well and is in no acute distress. Patient symptoms have improved since he arrived to our emergency department. Repeat vital signs were all reviewed and noted to be stable. Differential diagnosis and treatment plan were discussed with the patient at bedside. Patient agrees with discussion and after shared medical decision making agrees with discharge. All questions were answered to the patient's satisfaction. Patient will follow up with his PCP/Urologist in 3-5 days. Patient was provided with strict return precautions and instructed to return to the emergency department if any new or worsening symptoms develop. The patient was discharged in stable condition. Lab Data Labs: Lab Results 07/31/24 Range/Units 00:17 Urine Color Red H (Yellow) Urine Appearance Turbid H (Clear) Urine pH 7.0 (5.0-9.0) Ur Specific [place] 1.018 (1.001-1.035) Urine Protein 3+ H (Negative) mg/dL Urine Glucose (UA) Negative (Negative) mg/dL Urine Ketones Trace H (Negative) mg/dL Ur Blood (Man) 3+ H (Negative) Urine Nitrate Negative (Negative) Urine Bilirubin Negative (Negative) Urine Urobilinogen 0.2 (<2.0) mg/dL Add Ur Microanalysis Reviewed Leukocyte Esterase Rfl 3+ H (Negative) NEAL/UL Urine RBC >100 H (0-2) /hpf Urine WBC 10-15 H (0-3) /hpf Ur Squamous Epith Cells None seen (Few) /hpf Urine Bacteria Rare /hpf Urine Casts 3-5 Discharge Plan Discharge Clinical Impression: Fall from ground level, Head injury, Abrasion, Chronic indwelling Gilmore catheter, Hematuria Patient Disposition: SNF Condition: Improved Instructions: Fall Prevention for Older Adults (ED), Head Injury (ED) Additional Instructions: Please follow-up with your family doctor/urologist within the next 3-5 days. Return to the emergency department for any new or worsening symptoms develop. Patient Language: Omani Prescriptions: No Action atorvastatin 20 mg tablet 20 mg PO HS loperamide 2 mg capsule 2 mg PO Q6H PRN (Reason: Diarrhea) trazodone 50 mg tablet 50 mg PO HS donepezil 10 mg tablet 10 mg PO HS triamcinolone acetonide 0.1 % cream 1 applic TOPICAL DAILY tamsulosin 0.4 mg capsule 0.4 mg PO DAILY omeprazole 20 mg capsule,delayed release(DR/EC) 20 mg PO DAILY albuterol sulfate 90 mcg/actuation HFA aerosol inhaler 2 puff INHALATION Q4H PRN (Reason: Wheezing) finasteride 5 mg tablet 5 mg PO DAILY escitalopram oxalate 10 mg tablet 10 mg PO DAILY fluticasone furoate-vilanterol [Breo Ellipta] 100-25 mcg/dose blister with device 1 inh INHALATION DAILY multivit with min-folic acid 0.4 mg Tablet 1 tablet PO DAILY cholecalciferol (vitamin D3) 25 mcg (1,000 unit) Capsule 25 mcg PO DAILY acetaminophen 650 mg Tablet 650 mg PO Q4H PRN (Reason: Pain) vitamin B complex Tablet 1 tablet PO DAILY fluticasone propionate 50 mcg/actuation [place],Suspension 2 spray INTRANASAL DAILY Rx Instructions: administer into each nostril cranberry extract 250 mg Tablet 250 mg PO TID losartan 25 mg Tablet 12.5 mg PO DAILY Qty: 30 0RF Bengay Ultra Strength 4-30-10 % Cream 1 applic topical BID PRN (Reason: Muscle/Joint Pain) Qty: 113 0RF celecoxib [Celebrex] 100 mg capsule 100 mg PO BID Qty: 60 0RF amoxicillin-pot clavulanate 875-125 mg tablet 1 tablet PO Q12H Qty: 9 0RF Follow-up/Referrals: Beto Bauer MD [Physician] - 3 Days UNKNOWN,DOCTOR [Non-Staff] - Time of Disposition: 02:20
[2024-07-31 01:19] LABS: Bacteria Urine Rare /hpf; Need Manual Microscopic Reviewed; RBC Urine >100 /hpf (0-2); Squamous Epithelial Cell Urine None Seen /hpf (Few)
[2024-07-31 01:20] LABS: Add Urine Microscopic? YES; Appearance Urine Turbid (Clear); Bilirubin Urine Negative (Negative); Blood Urine 3+ (Negative); Color Urine Red (Yellow); Glucose Urine UA Negative (Negative); Ketones Urine Trace mg/dL (Negative); Leukocyte Esterase Ur 3+ LEU/UL (Negative); Nitrate Urine Negative (Negative); Protein Urine 3+ mg/dL (Negative); Specific Grav Ur 1.018 (1.001-1.035); Urobilinogen Urine 0.2 mg/dL (<2.0)
--- OUTSIDE RECORDS SUMMARY | 2024-08-07 02:21 | XMS_ITS | Referral Summary ---
Author Organization [facility] Address [address] [place] [address] Care Team Providers Care Jockey Room Custodian Name Role Phone Lamin Ricci MD Primary Care Provider [phone] Source Comments [facility],non-owned Affiliates and Associated Physician Practices is amultiple site organization consisting of ambulatory clinics and hospital sitesin [place], [place], [place] and [place]. This disclosure is being madepursuant to the Care Everywhere program and may not contain all information available regarding this patient. Last updated 18.[facility] Medications * Be aware that medications may not be up to date on this document. Alwaysverify current medications with the patient. Medication Sig Dispensed Refills Start Date End Date Status alfuzosin CR 24hr (UROXATRAL) 10 MG tablet Take by mouth. 05/12/2016 Active Vitamin D3 (CHOLECALCIFEROL) 2000 UNITS capsule Take by mouth BID. 03/10/2016 Act frankie [place]-3 Fatty Acids (FISH OIL) 1200 MG Take by mouth BID. 03/10/2016 Active atorvastatin (LIPITOR) 20 MG tablet Take 20 mg by mouth DAILY. 03/10/2016 Active diclofenac sodium EC (VOLTAREN) 25 MG tablet Take 75 mg by mouth BID. 03/10/2016 Active aspirin (ASPIRIN) 81 MG tablet Take 81 mg by mouth DAILY. 03/10/2016 Active oxyCODONE-acetaminophe n (PERCOCET) 5-325 MG tablet Take 1 tablet by mouth. 03/10/2016 Active Multiple Minerals-Vitamins (DMY-FKF-YLXO-D) TABS Take 1,200 mg by mouth. 03/10/2016 Active Biotin 7500 MCG Take by mouth DAILY. 03/10/2016 Active Lecithin 1200 MG Take by mouth BID. 03/10/2016 Active Cranberry 200 MG Take by mouth DAILY. 03/10/2016 Active Coenzyme Q10 (CO Q-10) 200 MG Take by mouth BID. 03/10/2016 Active Social History Tobacco Use Types Packs/Day Years Used Date Smoking Tobacco: Former Smokeless Tobacco: Never Alcohol Use Standard Drinks/Week Comments Yes 0 (1 standard drink = 0.6 oz pur e alcohol) Sex and Gender Information Value Date Recorded Sex Assigned at Not on file Gender Identity Not on file Sexual Orientation Not on file Last Filed Vital Signs Vital Sign Reading Time Taken Comments Blood Pressure 131/72 06/02/2016 9:29 AM CTRS Pulse 66 06/02/2016 9:29 AM CTRS Temperature - - Respiratory Rate - - Oxygen Saturation 98% 06/02/2016 7:30 AM CTRS Inhaled Oxygen Concentration - - Weight 78.9 kg (174 lb) 06/02/2016 7:30 AM CTRS Height 177.8 cm (5' 10 ) 06/02/2016 7:30 AM CTRS Body Mass Index 24.97 06/02/2016 7:30 AM CTRS Plan of Treatment Not on file Care Teams Jockey Room Custodian Relationship Specialty Start Date End Date Lamin Ricci MD [address] [place] [address] PCP - General 01/13/18
--- OUTSIDE RECORDS SUMMARY | 2024-08-07 02:21 | XMS_ITS | Patient Health Summary ---
Author Organization [facility] Address [address] [place] [address] Care Team Providers Care Healthcare Associate Name Role Phone Lamin Ricci MD Primary Care Provider Note from [facility],non-owned Affiliates and Associated Physician Practices is amultiple site organization consisting of ambulatory clinics and hospital sitesin [place], [place], [place] and [place]. This disclosure is being madepursuant to the Care Everywhere program and may not contain all information available regarding this patient. Last updated 18.[facility] Medications * Be aware that medications may not be up to date on this document. Alwaysverify current medications with the patient. * alfuzosin CR 24hr (UROXATRAL) 10 MG tablet(Started 05/12/2016) Take by mouth. * Vitamin D3 (CHOLECALCIFEROL) 2000 UNITS capsule(Started 03/10/2016) Take by mouth BID. * [place]-3 Fatty Acids (FISH OIL) 1200 MG(Started 03/10/2016) Take by mouth BID. * atorvastatin (LIPITOR) 20 MG tablet(Started 03/10/2016) Take 20 mg by mouth DAILY. * diclofenac sodium EC (VOLTAREN) 25 MG tablet(Started 03/10/2016) Take 75 mg by mouth BID. * aspirin (ASPIRIN) 81 MG tablet(Started 03/10/2016) Take 81 mg by mouth DAILY. * oxyCODONE-acetaminophen (PERCOCET) 5-325 MG tablet(Started 03/10/2016) Take 1 tablet by mouth. * Multiple Minerals-Vitamins (JJM-PPK-BOMY-D) TABS(Started 03/10/2016) Take 1,200 mg by mouth. * Biotin 7500 MCG(Started 03/10/2016) Take by mouth DAILY. * Lecithin 1200 MG(Started 03/10/2016) Take by mouth BID. * Cranberry 200 MG(Started 03/10/2016) Take by mouth DAILY. * Coenzyme Q10 (CO Q-10) 200 MG(Started 03/10/2016) Take by mouth BID. Social History Tobacco Use Types Packs/Day Years [...] Comments Blood Pressure 131/72 06/02/2016 9:29 AM SPOUT WORKER Pulse 66 06/02/2016 9:29 AM SPOUT WORKER Temperature - - Respiratory Rate - - Oxygen Saturation 98% 06/02/2016 7:30 AM SPOUT WORKER Inhaled Oxygen Concentration - - Weight 78.9 kg (174 lb) 06/02/2016 7:30 AM SPOUT WORKER Height 177.8 cm (5' 10 ) 06/02/2016 7:30 AM SPOUT WORKER Body Mass Index 24.97 06/02/2016 7:30 AM SPOUT WORKER Procedures * DERMATOPATHOLOGY(Performed 08/02/2019) * DERMATOPATHOLOGY(Performed 01/13/2018) * DERMATOPATHOLOGY(Performed 02/06/2016) * DERMATOPATHOLOGY(Performed 02/06/2016) * DERMATOPATHOLOGY(Performed 08/09/2012) * DERMATOPATHOLOGY(Performed 05/22/2011) * DERMATOPATHOLOGY(Performed 11/24/2010) Results * DERMATOPATHOLOGY (08/02/2019 12:00 AM SPOUT WORKER) Only the most recent of7 resultswithin the time period is included. Case Report Dermatopathology Report ? Case: [id number] ? Authorizing Provider: ??Zeferino Simpson MD ?Collected: ? 08/02/2019 12:00 AM ? Ordering Location: ? [facility] DermPath Lab ?Received: ?08/03/2019 01:13 PM ? Pathologist: ? Georgiana Thomson MD ? Specimens: ?? A) - Skin, left mid back ? B) - Skin, left ulnar ext forearm ? 0 12:09 PM [facility] DERMATOPATHOLOGY LABORATORY Final Diagnosis Specimen A. SKIN, left mid back: BASAL CELL CARCINOMA, NODULAR TYPE (C44.519) NOT PRESENT AT SAMPLED MARGIN Specimen B. 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 Check margin. B: R/O BCC, SCC, HAK, other. 0 12:09 PM [facility] DERMATOPATHOLOGY LABORATORY Gross Description Specimen A: Received is one formalin filled container labeled with the patients name and designated left mid back. The specimen consists of a shave removal measuring [id number] inked. Jar 0. Specimen B: Received is one formalin filled container labeled with the patient's name and designated left ulnar ext forearm. The specimen consists of a shave biopsy measuring [id number]. Jar 0. 0 12:09 PM [facility] DERMATOPATHOLOGY LABORATORY Microscopic Description Specimen A. SKIN, left mid back: Within the dermis there are aggregates of basaloid cells with a high nuclear to cytoplasmic ratio and peripheral palisading. This lesion is not present at the sampled margin of the specimen. Specimen B. SKIN, left ulnar ext forearm: The epidermis shows parakeratosis, full thickness disorderly maturation of keratinocytes, mitoses at different levels, and dyskeratotic cells. 0 12:09 PM [facility] DERMATOPATHOLOGY LABORATORY Disclaimer An external and internal positive and negative controls are appropriate for the histochemical, immunohistochemical and immunofluorescence stain(s) in this case (if any), except where stated explicitly. The performance characteristics of the stain(s) cited in this report were developed and its performance characteristic determined by the Dermatopathology Laboratory at [facility], directed by Dr. Larry Thomson. These tests need not be, and therefore are not, approved by the [place] Food and Drug Administration. The tests are used for clinical purposes. Billing Codes Specimen Charges Stain Charges 62137 34254 1 1 0 12:09 PM SPOUT WORKER DERMATOPATHOLOGY LABORATORY Embedded Images 0 12:09 PM SPOUT WORKER DERMATOPATHOLOGY LABORATORY Pathology/Cytology TISSUE SPECIMEN FROM SKIN / Unknown 08/02/2019 08/03/2019 1:13 PM SPOUT WORKER Miscellaneous samples (specimen) TISSUE SPECIMEN FROM SKIN / Unknown 08/02/2019 08/03/2019 1:13 PM SPOUT WORKER Zeferino Simpson MD LAB - PATHOLOGY/CYTO LOGY ORDERABLES DERMATOPATHOLOGY LABORATORY [facility] - Department of Dermatology [facility] [facility], [address]th [place] [address], [facility] [phone] Care Teams Healthcare Associate Relationship Specialty Start Date End Date Lamin Ricci MD [facility] [place] [phone] PCP - General 6/28/18
--- OUTSIDE RECORDS SUMMARY | 2024-08-07 02:21 | XMS_ITS | Encounter Summary ---
Author Organization [facility] Address [address] [place] [address] Care Team Providers Care Hydro Generation Supervisor Name Role Phone Lamin Ricci MD Primary Care Provider Encounter Details Date Type Department Care Team (Late st Contact Info) Description 01/13/2018 Lab Requisition [facility] Care DermPath Lab [address] [facility] [address] [facility] [address] [facility] [place] [address] Zeferino Simpson MD [address] [place] [address] Social History Tobacco Use Types Packs/Day Years Used Date Smoking Tobacco: Former Smokeless Tobacco: Never Alcohol Use Standard Drinks/Week Comments Yes 0 (1 standard drink = 0.6 oz pur e alcohol) Sex and Gender Information Value Date Recorded Sex Assigned at Not on file Gender Identity Not on file Sexual Orientation Not on file documented as of this encounter Plan of Treatment Not on file documented as of this encounter Procedures Procedure Name Priority Date/Time Associated Diagnosis Comments DERMATOPATHOLOGY Routine 01/13/2018 12:0 0 AM CDT documented in this encounter Results * DERMATOPATHOLOGY (01/13/2018 12:00 AM CDT) Case Report Dermatopathology Report ? Case: [id number] ? Authorizing Provider: ??Zeferino Simpson MD ?Collected: ? 01/13/2018 12:00 AM ? Pathologist: ? Domi Godfrey MD ? Received: ?01/13/2018 12:17 PM ? Specimen: ?Skin, right distal forearm ? 3:[address] [facility] DERMATOPATHOLOGY LABORATORY Final Diagnosis Specimen A. SKIN, right distal forearm: SUPERFICIAL (FOCALLY INVASIVE) SQUAMOUS CELL CARCINOMA (C44.622) APPROXIMATES MARGIN 3:[address] [facility] DERMATOPATHOLOGY LABORATORY Clinical History R/O HAK, SCC. Check margins. 3:[address] [facility] DERMATOPATHOLOGY LABORATORY Gross Description Specimen A: Received is one formalin filled container labeled with the patients name and designated right distal forearm. The specimen consists of a shave removal measuring [id number]. The margin is inked green. Jar 0. 3:[address] [facility] DERMATOPATHOLOGY LABORATORY Microscopic Description Specimen A. SKIN, right distal forearm: Sections reveal parakeratosis, acanthosis and keratinocyte dysmaturation which is most prominent in the lower epidermis. Focal nests are present in the dermis. This lesion approximates the base of the specimen. 3:[address] [facility] DERMATOPATHOLOGY LABORATORY Disclaimer An external and internal positive and negative controls are appropriate for the histochemical, immunohistochemical and immunofluorescence stain(s) in this case (if any), except where stated explicitly. The performance characteristics of the stain(s) cited in this report were developed and its performance characteristic determined by the Dermatopathology Laboratory at [facility]. These tests need not be, and therefore are not, approved by the [place] Food and Drug Administration. The tests are used for clinical purposes. Billing Codes Specimen Charges Stain Charges 18492 1 8 3:07 PM CDT DERMATOPATHOLOGY LABORATORY Embedded Images 8 3:07 PM CDT DERMATOPATHOLOGY LABORATORY Pathology/Cytolog y TISSUE SPECIMEN FROM SKIN / Unknown 01/13/2018 01/13/2018 12:17 PM CDT Zeferino Simpson MD LAB - PATHOLOGY/CYTO LOGY ORDERABLES DERMATOPATHOLOGY LABORATORY [facility] - Department of Dermatology [address] [place] [address] 5th Floor Lab B [address] [phone] documented in this encounter Visit Diagnoses Not on filedocumented in this encounter Care Teams Hydro Generation Supervisor Relationship Specialty Start Date End Date Lamin Ricci MD [address] [place] [address] [place] [phone] PCP - General 01/13/18 documented as of this encounter
--- OUTSIDE RECORDS SUMMARY | 2024-08-07 02:21 | XMS_ITS | Encounter Summary ---
Author Organization [facility] Address [address] [place] [address] Care Team Providers Care Senior Clinical Research Associate Name Role Phone Lamin Ricci MD Primary Care Provider Encounter Details Date Type Department Care Team (Late st Contact Info) Description 08/03/2019 Lab Requisition [facility] Care DermPath Lab [facility] [facility], [place] [address] Zeferino Simpson MD [address] [place] [address] Social History Tobacco Use Types [...] Priority Date/Time Associated Diagnosis Comments DERMATOPATHOLOGY Routine 08/02/2019 12:0 0 AM PATTERN DRUM MAKER documented in this encounter Results * DERMATOPATHOLOGY (08/02/2019 12:00 AM PATTERN DRUM MAKER) Case Report Dermatopathology Report ? Case: [id number] ? Authorizing Provider: ??Zeferino Simpson MD ?Collected: ? 08/02/2019 12:00 AM ? Ordering Location: ? [facility] DermPath Lab ?Received: ?08/03/2019 01:13 PM ? Pathologist: ? Georgiana Thomson MD ? Specimens: ?? A) - Skin, left mid back ? B) - Skin, left ulnar ext forearm ? 0 12:[address] [facility] DERMATOPATHOLOGY LABORATORY Final Diagnosis Specimen A. SKIN, left mid back: BASAL CELL CARCINOMA, NODULAR TYPE (C44.519) NOT PRESENT AT SAMPLED MARGIN Specimen B. 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 DERMATOPATHOLOGY LABORATORY Clinical History A: R/O BCC, SCC, HAK, other. Check margin. B: R/O BCC, SCC, HAK, other. 0 12:[address] [facility] DERMATOPATHOLOGY LABORATORY Gross Description Specimen A: Received is one formalin filled container labeled with the patients name and designated left mid back. The specimen consists of a shave removal measuring [id number] inked. Jar 0. Specimen B: Received is one formalin filled container labeled with the patient's name and designated left ulnar ext forearm. The specimen consists of a shave biopsy measuring [id number]. Jar 0. 0 12:[address] [facility] DERMATOPATHOLOGY LABORATORY Microscopic Description Specimen A. SKIN, [...] levels, and dyskeratotic cells. 0 12:[address] [facility] DERMATOPATHOLOGY LABORATORY Disclaimer An external and internal positive and negative controls are appropriate for the histochemical, immunohistochemical and immunofluorescence stain(s) in this case (if any), except where stated explicitly. The performance characteristics of the stain(s) cited in this report were developed and its performance characteristic determined by the Dermatopathology Laboratory at [facility], directed by Dr. Larry Thomson. These tests need not be, and therefore are not, approved by the [place] Food and Drug Administration. The tests are used for clinical purposes. Billing Codes Specimen Charges Stain Charges 08813 50115 1 1 0 12:09 PM PATTERN DRUM MAKER DERMATOPATHOLOGY LABORATORY Embedded Images 0 12:09 PM PATTERN DRUM MAKER DERMATOPATHOLOGY LABORATORY Pathology/Cytology TISSUE SPECIMEN FROM SKIN / Unknown 08/02/2019 08/03/2019 1:13 PM PATTERN DRUM MAKER Miscellaneous samples (specimen) TISSUE SPECIMEN FROM SKIN / Unknown 08/02/2019 08/03/2019 1:13 PM PATTERN DRUM MAKER Zeferino Simpson MD LAB - PATHOLOGY/CYTO LOGY ORDERABLES DERMATOPATHOLOGY LABORATORY [facility] - Department of Dermatology [address] [place] [address], 5th [place] [address], [facility] [phone] documented in this encounter Visit Diagnoses Not on filedocumented in this encounter Care Teams Senior Clinical Research Associate Relationship Specialty Start Date End Date Lamin Ricci MD [address] [facility] [address] [place] [address] [place] [phone] PCP - General 01/13/18 documented as of this encounter
--- OUTSIDE RECORDS SUMMARY | 2024-08-07 02:21 | XMS_ITS | Clinical Summary ---
Author Organization [facility] Address [address] [place] [address] Care Team Providers Care Clinical Education Consultant Name Role Phone Lamin Ricci MD Primary Care Provider [phone] Source Comments [facility],non-owned Affiliates and Associated Physician Practices is amultiple site organization consisting of ambulatory clinics and hospital sitesin [place], [place], [place] and [place]. This disclosure is being madepursuant to the Care Everywhere program and may not contain all information available regarding this patient. Last updated 18.[facility] Medications * Be aware that medications may not be up to date on this document. Alwaysverify current medications with the patient. Medication Sig Dispensed Refills Start Date End Date Status alfuzosin CR 24hr (UROXATRAL) 10 MG tablet Take by mouth. 05/12/2016 Active Vitamin D3 (CHOLECALCIFEROL) 2000 UNITS capsule Take by mouth BID. 03/10/2016 Act frankie [place]-3 Fatty Acids (FISH OIL) 1200 MG Take [...] tablet by mouth. 03/10/2016 Active Multiple Minerals-Vitamins (IBW-UGZ-CWVT-D) TABS Take 1,200 mg by mouth. 03/10/2016 Active Biotin 7500 MCG Take by mouth DAILY. 03/10/2016 Active Lecithin 1200 MG Take by mouth BID. 03/10/2016 Active Cranberry 200 MG Take by mouth DAILY. 03/10/2016 Active Coenzyme Q10 (CO Q-10) 200 MG Take by mouth BID. 03/10/2016 Active Family History Medical History Relation Name Comments Cancer Father Hypertension Mother Relation Name Status Comments Father Mother Social History Tobacco Use Types Packs/Day Years [...] Comments Blood Pressure 131/72 06/02/2016 9:29 AM EMPLOYMENT CLERK Pulse 66 06/02/2016 9:29 AM EMPLOYMENT CLERK Temperature - - Respiratory Rate - - Oxygen Saturation 98% 06/02/2016 7:30 AM EMPLOYMENT CLERK Inhaled Oxygen Concentration - - Weight 78.9 kg (174 lb) 06/02/2016 7:30 AM EMPLOYMENT CLERK Height 177.8 cm (5' 10 ) 06/02/2016 7:30 AM EMPLOYMENT CLERK Body Mass Index 24.97 06/02/2016 7:30 AM EMPLOYMENT CLERK Plan of Treatment Health Maintenance Due Date Last Done Comments MEDICARE AWV ? 12 MONTHS 1942 DTAP/TDAP/TD VACCINES (1 - Tdap) 1961 PNEUMOCOCCAL VACCINE 50+ (1 of 1 - PCV) 1992 ZOSTER VACCINE (1 of 2) 1992 Respiratory Syncytial Virus (RSV) Vaccine Pt: or over 60 yrs (1 - 1-dose 75+ series) 2017 COVID-19 VACCINE ( - 2023-2 5 season) 2024 INFLUENZA VACCINE (#1) 2024 DEPRESSION SCREENING 07/19/2024 HEPATITIS B VACCINE Aged Out No longe r eligible based on patient's age to complete this topic HIB VACCINE Aged Out No longer eligi ble based on patient's age to complete this topic HPV VACCINE Aged Out No longer eligi ble based on patient's age to complete this topic MENINGOCOCCAL (Group B) VACCINE Aged Out No longer eligible based on patient's age to complete this topic MENINGOCOCCAL VACCINE Aged Out No steve gayatri eligible based on patient's age to complete this topic Care Teams Clinical Education Consultant Relationship Specialty Start Date End Date Lamin iRcci MD [address] [facility] [address] [place] [address] [place] [phone] PCP - General 01/13/18
--- OUTSIDE RECORDS SUMMARY | 2024-08-07 02:22 | XMS_ITS | Referral Summary ---
Author Organization [facility] [address] [place] [address] Address [address] [place] [address] Care Team Providers Care Enroller Name Role Phone Sohan Rojas MD Primary Care Provider [phone] Lamin Mcgraw MD Unavailable [phone] Manuel Chowdhury MD Unavailable Shahrzad SONI MD, Carlos M. Unavailable [phone] Anand Herrera MD Unavailable Bulmaro Parker RN Unavailable Encounters Date Type Department Care Team Description 07/31/2024 Telephone [facility] Primary Care at [address] [phone] Sohan Rojas MD Additional Services Or Orders 06/27/2024 Telephone [facility] [address] [place] [address] Ora Chowdhury 06/19/2024 Telephone [facility] Primary Care at [address] [phone] Sohan Rojas MD Medical Question/Miscellaneou s 06/13/2024 CLAUDIA IP Outreach [facility] Care Organization [address] [place] [address] An Dao MA 06/12/2024 Telephone [facility] Post Acute Care [address] [facility] [address] [place] [address] Tammy Negro MA 06/09/2024 Documentation [facility] Post Acute Care [address] [phone] Alison Benavides NP 06/08/2024 NH/SNF Visit [facility] Post Acute Care [address] [phone] Alison Benavides NP 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 behavioral disturbance, psychotic disturbance, mood disturbance, or anxiety (HCC) (Primary Dx); Abnormality of gait and mobility; Insomnia due to medical condition; OAB (overactive bladder); Abnormal urinalysis; Mild intermittent asthma without complication; Hypercholesterolemia; 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 behavioral disturbance, psychotic disturbance, mood disturbance, or anxiety (HCC); Acute non-recurrent maxillary sinusitis; Gastroesophageal reflux disease without esophagitis 06/08/2024 Telephone [facility] Primary Care at [address] [phone] Sohan Rojas MD CLAUDIA Questions 06/05/2024 2:15 PM CERTIFIED HYPERBARIC TECHNICIAN Office Visit [facility] [address] [facility] Floor [address], [address] [place] [address] Anand Herrera MD NPH (normal pressure hydrocephalus) (HCC) 06/02/2024 Orders Only [facility] [address] [place] [phone] Sudheer Mcdonough MD 06/01/2024 NH/SNF Visit [facility] Post Acute Care [address] [phone] Alison Benavides NP OAB (overactive bladder) (Primary Dx); Insomnia due to medical condition; 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 behavioral disturbance, psychotic disturbance, mood disturbance, or anxiety (HCC); Abnormality of gait and mobility; Anemia, unspecified type; Onychomycosis of toenail 05/30/2024 NH/SNF Visit [facility] Post [facility] [address] [phone] Sudheer Mcdonough MD Abnormality of gait and mobility (Primary Dx); Hypercholesterolemia; Altered mental status, unspecified altered mental status type; 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 behavioral disturbance, psychotic disturbance, mood disturbance, or anxiety (HCC); 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HCC); NPH (normal pressure hydrocephalus) (HCC); Gastroesophageal reflux disease without esophagitis; Prostate cancer (HCC); Osteoarthritis, unspecified osteoarthritis type, unspecified site; Degenerative lumbar spinal stenosis; Cervical radiculopathy; Mild intermittent asthma without complication; Sleep disorder; Rosacea 05/21/2024 4:31 AM CERTIFIED HYPERBARIC TECHNICIAN - 05/29/2024 3:51 PM CERTIFIED HYPERBARIC TECHNICIAN Hospital Encounter [facility] [address] [place] [phone] Eddie Acosta DO Baig, Sophia, MD Fishman, Brian Michael, DO Abnormality of gait and mobility (Primary Dx); Anemia, unspecified type [D64.9]; Balance problem [R26.89]; Chronic pain syndrome [G89.4] Discharge Disposition: Discharge to SNF 05/21/2024 Orders Only [facility] [address] [place] [address] Eddie Acosta DO 05/19/2024 Orders Only [facility] [address] [facility] Floor [address], [address] [place] [address] Anand Herrera MD NPH (normal pressure hydrocephalus) (HCC) (Primary Dx) 05/15/2024 9:39 AM CDT - 05/19/2024 4:15 PM CDT Hospital Encounter [address] [phone] Anand Herrera MD Degenerative lumbar spinal stenosis Discharge Disposition: Discharge to SNF 05/15/2024 8:30 AM CDT Lab [address] 1st [place] [address] NPH (normal pressure hydrocephalus) (HCC); Other cerebrovascular disease; Other hereditary cerebrovascular disease 05/15/2024 8:25 AM CDT - 05/15/2024 11:59 PM CDT Hospital Encounter [facility] [address] [place] [address] Anand Herrera MD NPH (normal pressure hydrocephalus) (HCC) Discharge Disposition: Discharge to home or self care from Last 3 Months Allergies Active Allergy Reactions Criticality Noted Date Comments Memantine Delusions High 09/01/2023 Increased confusion Other Sneezing Low 05/31/2019 Seasonal allergies Medications traZODone (DESYREL) 50 mg tabletIndications :insomnia associated with depression Take 1 tablet (50 mg total) by mouth nightly 30 tablet 4 Active acetaminophen (TYLENOL) 325 mg tabletIndications :Pain Take 2 tablets (650 mg total) by mouth every 4 (four) hours as needed for pain 30 tablet 4 Active albuterol HFA (PROVENTIL HFA,VENTOLIN HFA,PROAIR HFA) 90 mcg/actuation inhalerIndication s:Bronchospasm Prevention Inhale 2 puffs every 4 (four) hours as needed for wheezing 1 each 4 Active atorvastatin (LIPITOR) 20 mg tabletIndications :Hypercholesterol emia Take 1 tablet (20 mg total) by mouth daily 30 tablet 4 Active fluticasone furoate-vilantero L (Breo Ellipta) 100-25 mcg/dose diskus inhalerIndication s:Mild intermittent asthma without complication Inhale 1 puff daily 180 each 4 Active cholecalciferol, vitamin D3, 1,000 unit tablet,chewable Take 1 tablet/chew tab by mouth daily 30 tablet 4 Active cranberry extract 200 mg capsule Take 2 capsules by mouth 3 (three) times a day 90 capsule 4 Active donepeziL (ARICEPT) 10 mg tabletIndications :Mild to Moderate Alzheimer's Type Dementia Take 1 tablet (10 mg total) by mouth nightly 30 tablet 4 06/08/20 25 Active escitalopram (Lexapro) 10 mg tablet Take 1 tablet (10 mg total) by mouth daily 30 tablet 06/08/20 25 Active finasteride (PROSCAR) 5 mg tablet Take 1 tablet (5 mg total) by mouth daily 30 tablet 06/08/20 25 Active fluticasone propionate (FLONASE) 50 mcg/actuation nasal sprayIndications: Allergic Rhinitis Administer 2 sprays into each nostril daily 3 each 4 Active multivitamin with minerals tablet Take 1 tablet by mouth daily 30 tablet 4 Active omeprazole (PriLOSEC) 20 mg capsuleIndication s:Gastroesophagea l reflux disease without esophagitis Take 1 capsule (20 mg total) by mouth daily 90 capsule 4 Active tamsulosin (FLOMAX) 0.4 mg extended release capsule Take 1 capsule (0.4 mg total) by mouth daily 30 capsule 4 Active Active Problems Problem Noted Date Diagnosed Date Abnormal urinalysis 06/08/2024 Assessment & Plan (06/08/2024 6:20 PM CERTIFIED HYPERBARIC TECHNICIAN): Per Urology. Started on Augmentin. Nursing to fu on cx in am. Continue Augmentin at this time until completion unless Ucx results obtained and not indicated or change needed. OAB (overactive bladder) 06/02/2024 Assessment & Plan (06/02/2024 9:38 AM CERTIFIED HYPERBARIC TECHNICIAN): Increased urination at night. UA negative for UTI. Condom cath added at nighttime with BPH meds dosed accordingly. Monitor for improvement or need to add Mybertiq. Abnormality of gait and mobility 01/05/2024 Assessment & Plan (06/08/2024 6:18 PM CERTIFIED HYPERBARIC TECHNICIAN): Greatly improved. DCP to [facility]. Assessment & Plan (05/30/2024 10:50 AM CERTIFIED HYPERBARIC TECHNICIAN): I endorse admission to [facility] care. The patient is at risk of injury, illness and a requirement for a higher level of care without this service. The patient needs assistance from the nurses and care team for all activities of daily living including dressing, hygeine of person and toilet, safe transfer and mobility, dietary needs, medication administration, and grooming. The patient will need physical and occupational therapy to progress to a safer level of care. Assessment & Plan (01/05/2024 1:06 PM CDT): Referral to neurosurgery for NPH. Patient interested in possibly getting COMPUTER SYSTEMS DESIGNER shunt to help with mobility, falls, and cognitive decline. Referral to physical therapy to help with balance. Moderate late onset Alzheime r's dementia without behavioral disturbance, psychotic disturbance, mood disturbance, or anxiety 10/26/2022 Assessment & Plan (06/08/2024 6:19 PM CERTIFIED HYPERBARIC TECHNICIAN): Uncertain type of Dementia. Per Neurology Ddx would be Parkinson's disease, Lewy body dementia, or Alzheimer's disease with extrapyramidal features. NPH willis negative. Continue Aricept, Lexapro, Trazodone. Encourage sleep hygiene. PT/OT/ST. Assessment & Plan (06/02/2024 9:36 AM CERTIFIED HYPERBARIC TECHNICIAN): Uncertain type of Dementia. Per Neurology Ddx would be Parkinson's disease, Lewy body dementia, or Alzheimer's disease with extrapyramidal features. NPH willis negative. Continue Aricept, Lexapro, Trazodone. Encourage sleep hygiene. PT/OT/ST. Assessment & Plan (05/30/2024 10:53 AM CERTIFIED HYPERBARIC TECHNICIAN): Chronic, stable; cont rx aricept. Assessment & Plan (01/05/2024 1:05 PM CDT): Continue taking donepezil/Aricept 5 mg daily and escitalopram/Lexapro 10 mg daily. Continue working with [facility]. Sent referral for sleep medicine to have sleep study done. Follow-up in 6 months or sooner if need be. Assessment & Plan (10/26/2022 10:02 AM CDT): Will continue Aricept, Breo Seem to be doing well EKG did not show atrial fibrillation or ischemia, but frequent premature ventricular contractions. We will revisit but no intervention at this time. Spinal stenosis of lumbar re gion with neurogenic claudication 08/19/2022 Radiculopathy, lumbosacral region 08/19/2022 Encounter for Medicare annual wellness exam 07/19 Assessment & Plan (01/21/2023 4:28 PM CDT): A(n) yearly Medicare Annual Wellness Visit has been performed today. Gulshan Johnston is up to date on screening tests. He is in need of None- no screening indicated at this time. He is not up to date on needed preventative vaccinations; He is in need of Covid-19 (booster). We discussed healthy lifestyle habits, educational material has been given. Medications reviewed, changes documented as per the medical record and discussed with patient along with risks vs benefits. Return in 6 months Assessment & Plan (07/28/2022 1:23 PM CERTIFIED HYPERBARIC TECHNICIAN): A(n) initial visit to establish care has been performed today. Gulshan Johnston is up to date on screening tests. He is in need of None- no screening indicated at this time. He is not up to date on needed preventative vaccinations. We discussed healthy lifestyle habits, educational material has been given. Medications reviewed, changes documented as per the medical record and discussed with patient along with risks vs benefits. Will plan to do SLUMS in a couple weeks Referrals to pain management and PT ordered Continuing current regimen otherwise, but we will add Breo to help control asthma Refilled albuterol Awaiting labs Polyneuropathy associated with underlying diseas e 07/27/2022 Asthma 05/02/2018 Assessment & Plan (05/30/2024 10:53 AM CERTIFIED HYPERBARIC TECHNICIAN): Stable, cont same. Cont rx breo ellipta, albuterol Assessment & Plan (08/19/2022 2:05 PM CERTIFIED HYPERBARIC TECHNICIAN): Symptoms have improved on the daily Breo Ellipta Has not had to use his prn inhaler since starting the maintenance. Arthritis 05/02/2018 Anemia 04/12/2018 Assessment & Plan (06/02/2024 9:37 AM CERTIFIED HYPERBARIC TECHNICIAN): Labs pending for am. Prostate cancer 11/02/2017 Assessment & Plan (05/30/2024 10:52 AM CERTIFIED HYPERBARIC TECHNICIAN): Remote, not currently active Assessment & Plan (08/19/2022 2:04 PM CERTIFIED HYPERBARIC TECHNICIAN): Patient making follow up with his Urologist. Medication refills provided. Intrinsic eczema 09/02/2017 Cervical radiculopathy 06/19/2016 Degenerative lumbar spinal stenosis 05/20/2016 Primary osteoarthritis of left shoulder 03/17/20 16 Insomnia, unspecified 12/17/2015 Assessment & Plan (06/08/2024 6:19 PM CERTIFIED HYPERBARIC TECHNICIAN): Believe s/t OAB/Dementia. Continue Trazodone 50mg nightly given at 2000 nightly, condom cath, Flomax dosed at 1700 & Finasteride in am. If continues to have issues could consider Mybertiq. Continue fu with Urology for OAB/BPH. Assessment & Plan (06/02/2024 9:35 AM CERTIFIED HYPERBARIC TECHNICIAN): Believe s/t OAB/Dementia. Will trial Trazodone 50mg nightly given at 2000 nightly, condom cath, Flomax dosed at 1700 & Finasteride in am. If continues to have issues could consider Mybertiq. Gastroesophageal reflux disease 06/18/2011 Assessment & Plan (05/30/2024 10:52 AM CERTIFIED HYPERBARIC TECHNICIAN): Chronic, stable; cont rx omeprazole Hypercholesterolemia 12/06/2008 Assessment & Plan (05/30/2024 10:51 AM CERTIFIED HYPERBARIC TECHNICIAN): Current, stable; cont rx atorvastatin Osteoarthritis 12/06/2008 Assessment & Plan (05/30/2024 10:52 AM CERTIFIED HYPERBARIC TECHNICIAN): Chronic, stable/ cont tylenol as needed. Rosacea 12/06/2008 Resolved Problems Problem Noted Date Diagnosed Date Resolved Date AMS (altered mental status) 05/21/2024 06/02/2024 Seborrheic dermatitis 09/30/20232023 Dystrophia unguium 02/11/2023 Balance problem 09/15/2022 06/02/2024 Acute sinusitis 07/04/2020 05/30/2024 Pain in toe 07/04/2020 06/02/2024 Paronychia of toe of right foot 11/06/2019 06/02/2024 Callus of toe 02/07/2019 06/02/2024 Elevated blood pressure reading 12/08/2018 08/28/2019 Dyspnea, unspecified 12/02/2018 024 Onychomycosis of toenail 05/02/2018 Assessment & Plan (06/02/2024 9:34 AM CERTIFIED HYPERBARIC TECHNICIAN): Medication completed 05/29. 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 06/02/2024 Chronic pain 02/17/2013 06/02/2024 Bronchial asthma 12/06/2008 06/02/2024 Immunizations Name Administration Dates Next Due Influenza, Quad, Adjuvantate d, Intramuscular 05/21/2023,05/08/2022,04/30/2021 Influenza, Quadrivalent, Hig h Dose, Preservative Free, Intrr 04/08/2020 Influenza, Trivalent, High D ose, Split, Preservative Free, Intramuscular 04/26/2019,05/06/2018,04/29/2017,04/30 Influenza, Trivalent, Preser vative Free, Intramuscular 04/18/2016 Influenza, Unspecified 07/26/2023(Deferr ed: Patient Refused),07/19/2022(Deferred: Patient Refused),06/05/2021 Pfizer SARS-CoV-2 Monovalent Vaccination (12+ Yrs) PURPLE 06/05/2021,09/20/2020,08/30/2020 Pfizer Sars-Cov-2 Bivalent V accination (12+ YRS) 05/21/2023 Pneumococcal Conjugate PCV 13 07/27/2019 Pneumococcal Conjugate Pcv20 07/27/2022 Tdap 12/15/2015 ZOSTER Recombinant 04/08/2020 Social History Tobacco Use Types Packs/Day Years Used Date Smoking Tobacco: Former Pipe Q uit: 11/28/1979 Smokeless Tobacco: Never Tobacco Cessation:Counseling Given: Not Answered Alcohol Use Standard Drinks/Week Comments Not Currently 0 (1 standard drink = 0.6 oz pur e alcohol) [facility] Utilities Answer Date Recorded In the past 12 months has th e [employer], [employer], oil, or water DIY threatened to shut off services in your home? No 05/22/2024 Humiliation, Afraid, Rape, and Kick questionnair e Answer Date Recorded Fear of Current or Ex-Partner No Emotionally Abused No 05/31/2019 Physically Abused No 05/31/2019 Sexually Abused No 05/31/2019 Social Connection and Isolat ion Panel [NHANES] Answer Date Recorded In a typical week, how many times do you talk on the phone with family, friends, or neighbors? More than three times a week 05/22/2024 How often do you get togethe r with friends or relatives? More than three times a week 05/22/2024 How often do you attend chur ch or pentecostal services? Never 05/22/2024 Do you belong to any clubs o r organizations such as mormon groups, unions, fraternal or athletic groups, or school groups? No 05/22/2024 How often do you attend meet ings of the clubs or organizations you belong to? Never 05/22/2024 Are you , , di vorced, , never , or living with a partner? 05/22/2024 AUDIT-C Answer Date Recorded Q1: How often do you have a drink containing alcohol? Never 01/31/2024 Q2: How many drinks containi ng alcohol do you have on a typical day when you are drinking? Patient does not drink Q3: How often do you have si x or more drinks on one occasion? Never 01/31/2024 Overall Financial Resource Strain (CARDIA) Answe r Date Recorded How hard is it for you to pa y for the very basics like food, housing, medical care, and heating? Not hard at all 05/22/2024 PHQ-2 Answer Date Recorded PHQ-2 Total Score (If total score is 3 or more points, staff should administer the PHQ-9) 0 01/26/2024 [facility] [place] [facility] - Occupational Stress Questionnaire Answer Date Recorded Feeling of Stress To some extent 05/31/2019 Exercise Vital Sign Answer Date Recorde d Days of Exercise per Week 7 days 2018 Minutes of Exercise per Session 20 min 05/31/2019 Hunger Vital Sign Answer Date Recorded Within the past 12 months, y ou worried that your food would run out before you got the money to buy more. Never true 05/22/20 24 Within the past 12 months, t he food you bought just didn't last and you didn't have money to get more. Never true 05/22/2024 PRAPARE - Transportation Answer Date Re corded In the past 12 months, has l ack of transportation kept you from medical appointments or from getting medications? No 10/2023 In the past 12 months, has l ack of transportation kept you from meetings, work, or from getting things needed for daily living? No 05/22/2024 Housing Stability Vital Sign Answer Jc e Recorded In the last 12 months, was t here a time when you were not able to pay the mortgage or rent on time? No 05/22/2024 In the past 12 months, how m any times have you moved where you were living? 0 05/22/2024 At any time in the past 12 m [facility], were you homeless or living in a [facility] (including now)? No 05/22/2024 Personal Safety Answer Date Recorded Have you ever been in or are you currently in a harmful physical or emotional relationship or is someone making you feel afraid or unsafe? Denies 05/21/2024 Education Answer Date Recorded What is the highest level of school you have completed or the highest degree you have received? High school graduate 05/31/2019 Sex and Gender Information Value Date Recorded Sex Assigned at Not on file Legal Sex Male 8:20 PM CERTIFIED HYPERBARIC TECHNICIAN Gender Identity Male 03/24/2021 7:53 PM CDT Sexual Orientation Straight 03/24/2021 7: 53 PM CDT Occupation Industry Job Start Date Job End Date retired Not on file Not on file Not on file Last Filed Vital Signs Vital Sign Reading Time Taken Comments Blood Pressure 141/77 06/08/2024 6:13 PM CERTIFIED HYPERBARIC TECHNICIAN Pulse 71 06/05/2024 2:31 PM CERTIFIED HYPERBARIC TECHNICIAN Temperature 36.4 ??C (97.5 ??F) 05/30/2024 10:[address] Respiratory Rate 17 06/05/2024 2:31 PM CERTIFIED HYPERBARIC TECHNICIAN Oxygen Saturation 96% 06/05/2024 2:31 PM CERTIFIED HYPERBARIC TECHNICIAN Inhaled Oxygen Concentration - - Weight 73.5 kg (162 lb) 06/05/2024 2:31 PM CERTIFIED HYPERBARIC TECHNICIAN Height 180.3 cm (5' 11 ) 06/05/2024 2:31 PM CERTIFIED HYPERBARIC TECHNICIAN Body Mass Index 22.59 06/05/2024 2:31 PM CERTIFIED HYPERBARIC TECHNICIAN Plan of Treatment Not on file Procedures Procedure Name Priority Date/Time Associated Diagnosis Comments EGFR Routine 06/02/2024 9:36 AM CERTIFIED HYPERBARIC TECHNICIAN COMPREHENSIVE METABOLIC PANEL Routine 06/02/2024 9:36 AM CERTIFIED HYPERBARIC TECHNICIAN CBC WITHOUT DIFFERENTIAL Routine 06/02/2024 9:36 AM CERTIFIED HYPERBARIC TECHNICIAN URINALYSIS AND REFLEX TO MICROSCOPIC AND CULTURE Routine 06/02/2024 6:40 AM CERTIFIED HYPERBARIC TECHNICIAN EGFR Routine 05/25/2024 11:28 AM CERTIFIED HYPERBARIC TECHNICIAN DIFFERENTIAL AUTO Routine 05/25/2024 11:28 AM CERTIFIED HYPERBARIC TECHNICIAN CBC WITH AUTO DIFFERENTIAL Routine 05/25/2024 11:28 AM CERTIFIED HYPERBARIC TECHNICIAN BASIC METABOLIC PANEL Routine 05/25/2024 11:28 AM CERTIFIED HYPERBARIC TECHNICIAN EGFR Routine 05/24/2024 6:12 AM CERTIFIED HYPERBARIC TECHNICIAN DIFFERENTIAL AUTO Routine 05/24/2024 6:1 2 AM CERTIFIED HYPERBARIC TECHNICIAN CBC WITH AUTO DIFFERENTIAL Routine 05/24/2024 6:12 AM CERTIFIED HYPERBARIC TECHNICIAN BASIC METABOLIC PANEL Routine 05/24/2024 6:12 AM CERTIFIED HYPERBARIC TECHNICIAN EGFR Routine 05/23/2024 6:27 AM CERTIFIED HYPERBARIC TECHNICIAN DIFFERENTIAL AUTO Routine 05/23/2024 6:2 7 AM CERTIFIED HYPERBARIC TECHNICIAN CBC WITH AUTO DIFFERENTIAL Routine 05/23/2024 6:27 AM CERTIFIED HYPERBARIC TECHNICIAN BASIC METABOLIC PANEL Routine 05/23/2024 6:27 AM CERTIFIED HYPERBARIC TECHNICIAN EGFR Routine 05/22/2024 3:34 AM CERTIFIED HYPERBARIC TECHNICIAN DIFFERENTIAL AUTO Routine 05/22/2024 3:3 4 AM CERTIFIED HYPERBARIC TECHNICIAN BASIC METABOLIC PANEL Routine 05/22/2024 3:34 AM CERTIFIED HYPERBARIC TECHNICIAN CBC WITH AUTO DIFFERENTIAL Routine 05/22/2024 3:34 AM CERTIFIED HYPERBARIC TECHNICIAN EGFR Routine 05/21/2024 10:58 AM CERTIFIED HYPERBARIC TECHNICIAN COMPREHENSIVE METABOLIC PANEL Routine 05/21/2024 10:58 AM CERTIFIED HYPERBARIC TECHNICIAN EGFR Routine 05/19/2024 1:47 AM CDT BASIC METABOLIC PANEL Routine 05/19/2024 1:47 AM CDT CBC WITHOUT DIFFERENTIAL Routine 05/19/2024 1:47 AM CDT EGFR Routine 05/17/2024 8:55 PM CDT BASIC METABOLIC PANEL Routine 05/17/2024 8:55 PM CDT CBC WITHOUT DIFFERENTIAL Routine 05/17/2024 8:55 PM CDT EGFR Routine 05/16/2024 9:10 PM CDT BASIC METABOLIC PANEL Routine 05/16/2024 9:10 PM CDT CBC WITHOUT DIFFERENTIAL Routine 05/16/2024 9:10 PM CDT URINALYSIS AND REFLEX TO MICROSCOPIC AND CULTURE Routine 05/16/2024 10:07 AM CDT EGFR Timed 05/15/2024 9:10 PM CDT PHOSPHORUS Timed 05/15/2024 9:10 PM CDT MAGNESIUM Timed 05/15/2024 9:10 PM CDT COMPREHENSIVE METABOLIC PANEL Timed 05/15/2024 9:10 PM CDT CBC WITHOUT DIFFERENTIAL Routine 05/15/2024 9:10 PM CDT IR LUMBAR PUNCTURE, DIAGNOSTIC INCL FLUORO GUIDANCE Schedule Routine, Read Routine (OP Routine) 05/15/2024 4:06 PM CDT NPH (normal pressure hydrocephalus) (HCC) ALZHEIMER? S DISEASE EVALUATION, CSF Routine 05/15/2024 4:05 PM CDT XR CHEST 1 VIEW IP Routine 05/15/2024 12:17 PM CDT EGFR STAT 05/15/2024 11:05 AM CDT TYPE AND SCREEN STAT 05/15/2024 11:05 AM CDT CBC WITHOUT DIFFERENTIAL STAT 05/15/2024 11:05 AM CDT PHOSPHORUS STAT 05/15/2024 11:05 AM CDT MAGNESIUM STAT 05/15/2024 11:05 AM CDT COMPREHENSIVE METABOLIC PANEL STAT 05/15/2024 11:05 AM CDT ECG 12-LEAD STAT 05/15/2024 10:09 AM CDT DIFFERENTIAL AUTO Routine 05/15/2024 8:3 1 AM CDT NPH (normal pressure hydrocephalus) (HCC) CBC WITH AUTO DIFFERENTIAL Routine 05/15/2024 8:31 AM CDT NPH (normal pressure hydrocephalus) (HCC) APTT Routine 05/15/2024 8:31 AM CDT NPH (normal pressure hydrocephalus) (HCC) Other hereditary cerebrovascular disease PROTIME-INR Routine 05/15/2024 8:31 AM CDT NPH (normal pressure hydrocephalus) (HCC) Other cerebrovascular disease from Last 3 Months Results * eGFR (06/02/2024 9:36 AM CERTIFIED HYPERBARIC TECHNICIAN) eGFR 79 >=60 mL/min/1. 73 m2 ADDIE YEE Comment: Interpretive Data Reference Interval Normal ?>/= 90 mL/min/1.73m2 Mildly decreased* ? 60 - 89 mL/min/1.73m2 Mildly to moderately decreased ?45 - 59 mL/min/1.73m2 Moderately to severely decreased ??30 - 44 mL/min/1.73m2 Severely decreased ?15 - 29 mL/min/1.73m2 Kidney Failure ?< 15 ??mL/min/1.73m2 *Relative to young adult level Estimated glomerular filtration rate is determined by the 2020 CKD-EPI equation recommended by the National Kidney Foundation (A Unifying Approach to GFR Estimation: Recommendations of the NKF-ASK Task Force on Reassessing the Inclusion of Race in Diagnosing Kidney Disease, JASN 202). The CKD-EPI equation should not be used for patients with unstable renal function and has not been validated in children and those over 70. Current interpretive data was last reviewed 2021. [facility], [facility], [place]., [address] Blood 06/02/2024 9:36 AM CERTIFIED HYPERBARIC TECHNICIAN 06/02/2024 9:47 AM CERTIFIED HYPERBARIC TECHNICIAN us Sudheer Mcdonough MD LAB BLOOD ORDERABLES Final R esult ADDIE [address] [facility] Department [place] [address] * (ABNORMAL) CBC without differential (06/02/2024 9:36 AM CERTIFIED HYPERBARIC TECHNICIAN) WBC 5.4 3.8 - 9.9 K/cumm CERYADIRA Comment:[address] [address] Hgb 11.1(L) 13.0 - 17.5 g/dL [facility]ERY[facility]IRA MH Comment:[address], [address] Hct 33.4(L) 38.9 - 50.3 % [facility] MH Comment:[address] [address] Plt 235 150 - 400 K/cumm CERNER MH Comment:[address] [address] MPV 9.3 9.1 - 12.3 fL CERNER MH Comment:[address] [address] RBC 3.43(L) 4.30 - 5.80 M/cumm CERNER MH Comment:[address] [address] MCV 97.4(H) 81.3 - 96.4 fL [facility]ERNER MH Comment:[address] [address] MCH 32.4 27.1 - 33.3 pg CERNER MH Comment:[address] [address] MCHC 33.2 32.3 - 35.7 g/dL CERNER MH Comment:[address], [address] RDW CV 12.5 11.1 - 14.9 % CERNER MH Comment:[address], [address] RDW SD 43.9 35.7 - 48.1 fL CERYADIAR MH Comment:[address], [address] NRBC abs 0.00 0.00 - 0.01 K/cumm ADDIE Comment:[address] [address] Blood 06/02/2024 9:36 AM CERTIFIED HYPERBARIC TECHNICIAN 06/02/2024 9:47 AM CERTIFIED HYPERBARIC TECHNICIAN us Sudheer Mcdonough MD LAB BLOOD ORDERABLES Final R esult ADDIE [address] [facility] Department [place] [address] * (ABNORMAL) Comprehensive metabolic panel (06/02/2024 9:36 AM CERTIFIED HYPERBARIC TECHNICIAN) Sodium 138 135 - 145 mmol/L ADDIE Comment:[address] [address] Potassium, pl 4.1 3.3 - 4.9 mmol/L ADDIE Comment:[address] [address] Chloride 106 97 - 110 mmol/L ADDIE Comment:[address] [address] CO2 24 22 - 32 mmol/L ADDIE Comment:[address] [address] Anion gap 8 2 - 15 mmol/L ADDIE Comment:[address] [address] BUN 16 6 - 25 mg/dL ADDIE Comment:[address] [address] Creatinine 0.96 0.80 - 1.30 mg/dL ADDIE Comment:[address] [address] Glucose 98 70 - 199 mg/dL ADDIE Comment: Interpretive Data Fasting glucose >/= 126 mg/dl is diagnostic for diabetes. ?? Fasting is defined as no caloric intake for at least 8 hours. Fasting glucose between 100 mg/dl to 125 mg/dl is diagnostic of prediabetes. In a patient with classic symptoms of hyperglycemia or hyperglycemic crisis, a random glucose >/= 200 mg/dl is diagnostic for diabetes. In the absence of unequivocal hyperglycemia, results should be confirmed by repeat testing. The classification and Diagnosis of Diabetes Diabetes Care 2021; 46: S19-S40. Current interpretive data was last revised 2022. [facility], [address] [place]., [address] Calcium 9.3 8.5 - 10.3 mg/dL ADDIE Comment:[address] [address] Bilirubin, total 0.2 0.1 - 1.2 mg/dL ADDIE Comment:[address] [address] Protein, pl 5.7(L) 6.5 - 8.5 g/dL ADDIE Comment:[address] [address] Albumin 3.7 3.5 - 5.0 g/dL ADDIE Comment:[address] [address] Alk phos 54 40 - 130 Units/L ADDIE Comment:[address] [address] ALT 23 7 - 55 Units/L [facility] [address] AST 19 10 - 50 Units/L ADDIE Comment:[address] [address] Blood 06/02/2024 9:36 AM CERTIFIED HYPERBARIC TECHNICIAN 06/02/2024 9:47 AM CERTIFIED HYPERBARIC TECHNICIAN Sudheer Mcdonough MD LAB BLOOD ORDERABLES Final R esult [facility] [address] [place] [address] Department [place] [address] * Urinalysis reflex to microscopic and culture Urine (06/02/2024 6:40 AM CERTIFIED HYPERBARIC TECHNICIAN) Color, ur Yellow Yellow ADDIE Comment:[address] [address] Clarity, ur Clear Clear ADDIE Comment:[address] [address] Specific gravity, ur 1.005 1.003 - 1.030 ADDIE Comment:[address] [address] pH, urine 5.5 ADDIE Comment: Interpretive Data Urine pH is affected by diet, medications, systemic acid-base disturbances, and renal tubular function. ??pH may affect urinary stone formation. ??For example, urine pH below 6.0 may help reduce the tendency for calcium phosphate stones and pH greater than 6.0 may reduce the tendency for uric acid stone formation. Source: [facility] [employer] Current Interpretive Data was last revised on 2017 [facility], [address] [place] [address]., [address] Protein, ur ql Negative Negative ADDIE Comment:[address] [address] Glucose, ur ql Negative Negative ADDIE Comment:[address] [address] Ketones, ur Negative Negative ADDIE Comment:[address] [address] Bilirubin, ur Negative Negative ADDIE Comment:[address] [address] Blood, ur Negative Negative ADDIE Comment:[address] [address] Urobilinogen, ur <2.0 <2.0 mg/dL ADDIE Comment:[address] [address] Nitrite, ur Negative Negative ADDIE Comment:[address] [address] Leukocyte esterase, ur Negative Negative ADDIE Comment:[address] [address] UA reflex comment Reflex conditions for microscopic UA and culture not met. ADDIE Comment:[address] [address] Urine 06/02/2024 6:40 AM CERTIFIED HYPERBARIC TECHNICIAN 06/02/2024 7:12 AM CERTIFIED HYPERBARIC TECHNICIAN us Sudheer Mcdonough MD LAB MICROBIOLOGY - GENERAL O RDERABLES Final Result ADDIE YEE [address] [place] [address] Department [place] [address] * eGFR (05/25/2024 11:28 AM CERTIFIED HYPERBARIC TECHNICIAN) eGFR 76 >=60 mL/min/1. 73 m2 Comment: Interpretive Data Reference Interval Normal ?>/= 90 mL/min/1.73m2 Mildly decreased* ? 60 - 89 mL/min/1.73m2 Mildly to moderately decreased ?45 - 59 mL/min/1.73m2 Moderately to severely decreased ??30 - 44 mL/min/1.73m2 Severely decreased ?15 - 29 mL/min/1.73m2 Kidney Failure ?< 15 ??mL/min/1.73m2 *Relative to young adult level Estimated glomerular filtration rate is determined by the 2020 CKD-EPI equation recommended by the National Kidney Foundation (A Unifying Approach to GFR Estimation: Recommendations of the NKF-ASK Task Force on Reassessing the Inclusion of Race in Diagnosing Kidney Disease, JASN 2020). The CKD-EPI equation should not be used for patients with unstable renal function and has not been validated in children and those over 70. Current interpretive data was last reviewed 2021. Blood 05/25/2024 11:2 8 AM CERTIFIED HYPERBARIC TECHNICIAN 05/25/2024 11:35 AM CERTIFIED HYPERBARIC TECHNICIAN us Marguerite Wolfe MD LAB BLOOD ORDERABLES Final Resul t ADDIE [employer] [address] Department [place] [address] * Differential, auto (05/25/2024 11:28 AM CERTIFIED HYPERBARIC TECHNICIAN) Neutrophil abs 3.8 1.5 - 6.5 K/cumm Imm gran abs 0.0 0.0 - 0.1 K/cumm ADDIE RAHMAN Lymphocyte abs 0.8 0.8 - 3.3 K/cumm [facility] Monocyte abs 0.5 0.2 - 0.8 K/cumm [facility] Eosinophil abs 0.3 0.0 - 0.5 K/cumm [facility] Basophil abs 0.0 0.0 - 0.1 K/cumm [facility] Neutrophil pct 69.8 % [facility] Comment: Interpretive Data Percent cell count reference ranges are not reported, since discordance with absolute values may lead to misinterpretation of CBC data. Current Interpretive Data was last revised on 2017. Imm gran pct 0.4 % [facility] Comment: Interpretive Data Percent cell count reference ranges are not reported, since discordance with absolute values may lead to misinterpretation of CBC data. Current Interpretive Data was last revised on 2017. Lymphocyte pct 15.1 % [facility] Comment: Interpretive Data Percent cell count reference ranges are not reported, since discordance with absolute values may lead to misinterpretation of CBC data. Current Interpretive Data was last revised on 2017. Monocyte pct 9.1 % [facility] Comment: Interpretive Data Percent cell count reference ranges are not reported, since discordance with absolute values may lead to misinterpretation of CBC data. Current Interpretive Data was last revised on 2017. Eosinophil pct 4.9 % [facility] Comment: Interpretive Data Percent cell count reference ranges are not reported, since discordance with absolute values may lead to misinterpretation of CBC data. Current Interpretive Data was last revised on 2017. Basophil pct 0.7 % [facility] Comment: Interpretive Data Percent cell count reference ranges are not reported, since discordance with absolute values may lead to misinterpretation of CBC data. Current Interpretive Data was last revised on 2017. Blood 05/25/2024 11:2 8 AM CERTIFIED HYPERBARIC TECHNICIAN 05/25/2024 11:36 AM CERTIFIED HYPERBARIC TECHNICIAN us Marguerite Wolfe MD LAB BLOOD ORDERABLES Final Resul t [facility] [address] Department [place] [address] * (ABNORMAL) CBC with auto differential (05/25/2024 11:28 AM CERTIFIED HYPERBARIC TECHNICIAN) [facility] WBC 5.5 3.8 - 9.9 K/cumm Hgb 10.8(L) 13.0 - 17.5 g/dL [facility] Hct 32.1(L) 38.9 - 50.3 % [facility] Plt 203 150 - 400 K/cumm [facility] MPV 9.6 9.1 - 12.3 fL [facility] RBC 3.29(L) 4.30 - 5.80 M/cumm [facility] MCV 97.6(H) 81.3 - 96.4 fL [facility] MCH 32.8 27.1 - 33.3 pg [facility] MCHC 33.6 32.3 - 35.7 g/dL [facility] RDW CV 12.4 11.1 - 14.9 % [facility] RDW SD 44.0 35.7 - 48.1 fL [facility] NRBC abs 0.00 0.00 - 0.01 K/cumm [facility] Blood 05/25/2024 11:2 8 AM CERTIFIED HYPERBARIC TECHNICIAN 05/25/2024 11:36 AM CERTIFIED HYPERBARIC TECHNICIAN us Marguerite Wolfe MD LAB BLOOD ORDERABLES Final Resul t [facility] [address] Department [place] [address] * Basic metabolic panel (05/25/2024 11:28 AM CERTIFIED HYPERBARIC TECHNICIAN) [facility] Sodium 135 135 - 145 mmol/L Potassium, pl 4.2 3.3 - 4.9 mmol/L [facility] Chloride 103 97 - 110 mmol/L [facility] CO2 23 22 - 32 mmol/L [facility] Anion gap 9 2 - 15 mmol/L [facility] BUN 19 6 - 25 mg/dL [facility] Creatinine 0.99 0.80 - 1.30 mg/dL [facility] Glucose 108 70 - 199 mg/dL [facility] Comment: Interpretive Data Fasting glucose >/= 126 mg/dl is diagnostic for diabetes. ?? Fasting is defined as no caloric intake for at least 8 hours. Fasting glucose between 100 mg/dl to 125 mg/dl is diagnostic of prediabetes. In a patient with classic symptoms of hyperglycemia or hyperglycemic crisis, a random glucose >/= 200 mg/dl is diagnostic for diabetes. In the absence of unequivocal hyperglycemia, results should be confirmed by repeat testing. The classification and Diagnosis of Diabetes Diabetes Care 2021; 46: S19-S40. Current interpretive data was last revised 2022. Calcium 8.8 8.5 - 10.3 mg/dL [facility] [employer] Blood 05/25/2024 11:2 8 AM CERTIFIED HYPERBARIC TECHNICIAN 05/25/2024 11:35 AM CERTIFIED HYPERBARIC TECHNICIAN us Marguerite Wolfe MD LAB BLOOD ORDERABLES Final Resul t [facility] [address] Department [place] [address] * eGFR (05/24/2024 6:12 AM CERTIFIED HYPERBARIC TECHNICIAN) eGFR 70 >=60 mL/min/1. 73 m2 Comment: Interpretive Data Reference Interval Normal ?>/= 90 mL/min/1.73m2 Mildly decreased* ? 60 - 89 mL/min/1.73m2 Mildly to moderately decreased ?45 - 59 mL/min/1.73m2 Moderately to severely decreased ??30 - 44 mL/min/1.73m2 Severely decreased ?15 - 29 mL/min/1.73m2 Kidney Failure ?< 15 ??mL/min/1.73m2 *Relative to young adult level Estimated glomerular filtration rate is determined by the 2020 CKD-EPI equation recommended by the National Kidney Foundation (A Unifying Approach to GFR Estimation: Recommendations of the NKF-ASK Task Force on Reassessing the Inclusion of Race in Diagnosing Kidney Disease, LILIANESN 2020). The CKD-EPI equation should not be used for patients with unstable renal function and has not been validated in children and those over 70. Current interpretive data was last reviewed 2021. Blood 05/24/2024 6:12 AM CERTIFIED HYPERBARIC TECHNICIAN 05/24/2024 6:32 AM CERTIFIED HYPERBARIC TECHNICIAN us Marguerite Wolfe MD LAB BLOOD ORDERABLES Final Resul t [facility] [address] Department [place] [address] * Differential, auto (05/24/2024 6:12 AM CERTIFIED HYPERBARIC TECHNICIAN) Neutrophil abs 2.3 1.5 - 6.5 K/cumm Imm gran abs 0.0 0.0 - 0.1 K/cumm [facility] Lymphocyte abs 1.2 0.8 - 3.3 K/cumm [facility] Monocyte abs 0.4 0.2 - 0.8 K/cumm [facility] Eosinophil abs 0.3 0.0 - 0.5 K/cumm [facility] Basophil abs 0.0 0.0 - 0.1 K/cumm [facility] Neutrophil pct 54.7 % [facility] Comment: Interpretive Data Percent cell count reference ranges are not reported, since discordance with absolute values may lead to misinterpretation of CBC data. Current Interpretive Data was last revised on 2017. Imm gran pct 0.2 % [facility] Comment: Interpretive Data Percent cell count reference ranges are not reported, since discordance with absolute values may lead to misinterpretation of CBC data. Current Interpretive Data was last revised on 2017. Lymphocyte pct 29.3 % [facility] Comment: Interpretive Data Percent cell count reference ranges are not reported, since discordance with absolute values may lead to misinterpretation of CBC data. Current Interpretive Data was last revised on 2017. Monocyte pct 8.6 % [facility] Comment: Interpretive Data Percent cell count reference ranges are not reported, since discordance with absolute values may lead to misinterpretation of CBC data. Current Interpretive Data was last revised on 2017. Eosinophil pct 6.5 % [facility] Comment: Interpretive Data Percent cell count reference ranges are not reported, since discordance with absolute values may lead to misinterpretation of CBC data. Current Interpretive Data was last revised on 2017. Basophil pct 0.7 % [facility] Comment: Interpretive Data Percent cell count reference ranges are not reported, since discordance with absolute values may lead to misinterpretation of CBC data. Current Interpretive Data was last revised on 2017. Blood 05/24/2024 6:12 AM CERTIFIED HYPERBARIC TECHNICIAN 05/24/2024 6:37 AM CERTIFIED HYPERBARIC TECHNICIAN us Marguerite Wolfe MD LAB BLOOD ORDERABLES Final Resul t [facility] [address] Department [place] [address] * (ABNORMAL) CBC with auto differential (05/24/2024 6:12 AM CERTIFIED HYPERBARIC TECHNICIAN) WBC 4.2 3.8 - 9.9 K/cumm Hgb 11.4(L) 13.0 - 17.5 g/dL [facility] Hct 32.6(L) 38.9 - 50.3 % [facility] Plt 209 150 - 400 K/cumm [facility] MPV 9.2 9.1 - 12.3 fL [facility] RBC 3.46(L) 4.30 - 5.80 M/cumm [facility] MCV 94.2 81.3 - 96.4 fL [facility] MCH 32.9 27.1 - 33.3 pg [facility] MCHC 35.0 32.3 - 35.7 g/dL [facility] RDW CV 12.0 11.1 - 14.9 % [facility] RDW SD 41.9 35.7 - 48.1 fL [facility] NRBC abs 0.00 0.00 - 0.01 K/cumm [facility] Blood 05/24/2024 6:12 AM CERTIFIED HYPERBARIC TECHNICIAN 05/24/2024 6:37 AM CERTIFIED HYPERBARIC TECHNICIAN Marguerite Wolfe MD LAB BLOOD ORDERABLES Final Resul t Performing Organization Address [facility] Co de Phone Number [facility] [address] Department [place] [address] * Basic metabolic panel (05/24/2024 6:12 AM CERTIFIED HYPERBARIC TECHNICIAN) Pathologist [facility] Sodium 138 135 - 145 mmol/L Potassium, pl 3.8 3.3 - 4.9 mmol/L [facility] Chloride 102 97 - 110 mmol/L [facility] CO2 24 22 - 32 mmol/L [facility] Anion gap 12 2 - 15 mmol/L [facility] BUN 18 6 - 25 mg/dL [facility] Creatinine 1.06 0.80 - 1.30 mg/dL [facility] Glucose 111 70 - 199 mg/dL [facility] Comment: Interpretive Data Fasting glucose >/= 126 mg/dl is diagnostic for diabetes. ?? Fasting is defined as no caloric intake for at least 8 hours. Fasting glucose between 100 mg/dl to 125 mg/dl is diagnostic of prediabetes. In a patient with classic symptoms of hyperglycemia or hyperglycemic crisis, a random glucose >/= 200 mg/dl is diagnostic for diabetes. In the absence of unequivocal hyperglycemia, results should be confirmed by repeat testing. The classification and Diagnosis of Diabetes Diabetes Care 202; 46: S19-S40. Current interpretive data was last revised 2022. Calcium 9.1 8.5 - 10.3 mg/dL [facility] Blood 05/24/2024 6:12 AM CERTIFIED HYPERBARIC TECHNICIAN 05/24/2024 6:32 AM CERTIFIED HYPERBARIC TECHNICIAN Marguerite Wolfe MD LAB BLOOD ORDERABLES Final Resul t Performing Organization Address [facility] Co de Phone Number [facility] [address] Department [place] [address] * eGFR (05/23/2024 6:27 AM CERTIFIED HYPERBARIC TECHNICIAN) Pathologist [facility] eGFR 78 >=60 mL/min/1. 73 m2 Comment: Interpretive Data Reference Interval Normal ?>/= 90 mL/min/1.73m2 Mildly decreased* ? 60 - 89 mL/min/1.73m2 Mildly to moderately decreased ?45 - 59 mL/min/1.73m2 Moderately to severely decreased ??30 - 44 mL/min/1.73m2 Severely decreased ?15 - 29 mL/min/1.73m2 Kidney Failure ?< 15 ??mL/min/1.73m2 *Relative to young adult level Estimated glomerular filtration rate is determined by the 2020 CKD-EPI equation recommended by the National Kidney Foundation (A Unifying Approach to GFR Estimation: Recommendations of the NKF-ASK Task Force on Reassessing the Inclusion of Race in Diagnosing Kidney Disease, JASN 2020). The CKD-EPI equation should not be used for patients with unstable renal function and has not been validated in children and those over 70. Current interpretive data was last reviewed 2021. Blood 05/23/2024 6:27 AM CERTIFIED HYPERBARIC TECHNICIAN 05/23/2024 6:40 AM CERTIFIED HYPERBARIC TECHNICIAN us Marguerite Wolfe MD LAB BLOOD ORDERABLES Final Resul t [facility] [address] Department [place] [address] * Differential, auto (05/23/2024 6:27 AM CERTIFIED HYPERBARIC TECHNICIAN) Neutrophil abs 3.0 1.5 - 6.5 K/cumm Imm gran abs 0.0 0.0 - 0.1 K/cumm [facility] Lymphocyte abs 1.3 0.8 - 3.3 K/cumm [facility] Monocyte abs 0.5 0.2 - 0.8 K/cumm [facility] Eosinophil abs 0.2 0.0 - 0.5 K/cumm [facility] Basophil abs 0.0 0.0 - 0.1 K/cumm [facility] Neutrophil pct 59.7 % [facility] Comment: Interpretive Data Percent cell count reference ranges are not reported, since discordance with absolute values may lead to misinterpretation of CBC data. Current Interpretive Data was last revised on 2017. Imm gran pct 0.2 % [facility] Comment: Interpretive Data Percent cell count reference ranges are not reported, since discordance with absolute values may lead to misinterpretation of CBC data. Current Interpretive Data was last revised on 2017. Lymphocyte pct 25.6 % [facility] Comment: Interpretive Data Percent cell count reference ranges are not reported, since discordance with absolute values may lead to misinterpretation of CBC data. Current Interpretive Data was last revised on 2017. Monocyte pct 9.1 % [facility] Comment: Interpretive Data Percent cell count reference ranges are not reported, since discordance with absolute values may lead to misinterpretation of CBC data. Current Interpretive Data was last revised on 2017. Eosinophil pct 4.6 % [facility] Comment: Interpretive Data Percent cell count reference ranges are not reported, since discordance with absolute values may lead to misinterpretation of CBC data. Current Interpretive Data was last revised on 2017. Basophil pct 0.8 % [facility] Comment: Interpretive Data Percent cell count reference ranges are not reported, since discordance with absolute values may lead to misinterpretation of CBC data. Current Interpretive Data was last revised on 2017. Blood 05/23/2024 6:27 AM CERTIFIED HYPERBARIC TECHNICIAN 05/23/2024 6:39 AM CERTIFIED HYPERBARIC TECHNICIAN us Marguerite Wolfe MD LAB BLOOD ORDERABLES Final Resul t [facility] [address] Department [place] [address] * (ABNORMAL) CBC with auto differential (05/23/2024 6:27 AM CERTIFIED HYPERBARIC TECHNICIAN) WBC 5.0 3.8 - 9.9 K/cumm Hgb 11.2(L) 13.0 - 17.5 g/dL [facility] Hct 32.0(L) 38.9 - 50.3 % [facility] Plt 202 150 - 400 K/cumm [facility] MPV 9.4 9.1 - 12.3 fL [facility] RBC 3.42(L) 4.30 - 5.80 M/cumm [facility] MCV 93.6 81.3 - 96.4 fL [facility] MCH 32.7 27.1 - 33.3 pg [facility] MCHC 35.0 32.3 - 35.7 g/dL [facility] RDW CV 11.9 11.1 - 14.9 % [facility] RDW SD 41.1 35.7 - 48.1 fL [facility] NRBC abs 0.00 0.00 - 0.01 K/cumm [facility] Blood 05/23/2024 6:27 AM CERTIFIED HYPERBARIC TECHNICIAN 05/23/2024 6:39 AM CERTIFIED HYPERBARIC TECHNICIAN us Marguerite Wolfe MD LAB BLOOD ORDERABLES Final Resul t [facility] [address] Department of Laboratories [place], [place] [id number] * Basic metabolic panel (05/23/2024 6:27 AM CERTIFIED HYPERBARIC TECHNICIAN) Sodium 135 135 - 145 mmol/L Potassium, pl 3.6 3.3 - 4.9 mmol/L [facility] Chloride 100 97 - 110 mmol/L [facility] CO2 23 22 - 32 mmol/L [facility] Anion gap 12 2 - 15 mmol/L [facility] BUN 22 6 - 25 mg/dL [facility] Creatinine 0.97 0.80 - 1.30 mg/dL [facility] Glucose 100 70 - 199 mg/dL [facility] Comment: Interpretive Data Fasting glucose >/= 126 mg/dl is diagnostic for diabetes. ?? Fasting is defined as no caloric intake for at least 8 hours. Fasting glucose between 100 mg/dl to 125 mg/dl is diagnostic of prediabetes. In a patient with classic symptoms of hyperglycemia or hyperglycemic crisis, a random glucose >/= 200 mg/dl is diagnostic for diabetes. In the absence of unequivocal hyperglycemia, results should be confirmed by repeat testing. The classification and Diagnosis of Diabetes Diabetes Care 202; 46: S19-S40. Current interpretive data was last revised 2022. Calcium 8.9 8.5 - 10.3 mg/dL [facility] Blood 05/23/2024 6:27 AM CERTIFIED HYPERBARIC TECHNICIAN 05/23/2024 6:40 AM CERTIFIED HYPERBARIC TECHNICIAN us Marguerite Wolfe MD LAB BLOOD ORDERABLES Final Resul t [facility] [address] Department [place] [address] * eGFR (05/22/2024 3:34 AM CERTIFIED HYPERBARIC TECHNICIAN) eGFR 89 >=60 mL/min/1. 73 m2 Comment: Interpretive Data Reference Interval Normal ?>/= 90 mL/min/1.73m2 Mildly decreased* ? 60 - 89 mL/min/1.73m2 Mildly to moderately decreased ?45 - 59 mL/min/1.73m2 Moderately to severely decreased ??30 - 44 mL/min/1.73m2 Severely decreased ?15 - 29 mL/min/1.73m2 Kidney Failure ?< 15 ??mL/min/1.73m2 *Relative to young adult level Estimated glomerular filtration rate is determined by the 2020 CKD-EPI equation recommended by the National Kidney Foundation (A Unifying Approach to GFR Estimation: Recommendations of the NKF-ASK Task Force on Reassessing the Inclusion of Race in Diagnosing Kidney Disease, JASN 2020). The CKD-EPI equation should not be used for patients with unstable renal function and has not been validated in children and those over 70. Current interpretive data was last reviewed 2021. Blood 05/22/2024 3:34 AM CERTIFIED HYPERBARIC TECHNICIAN 05/22/2024 5:12 AM CERTIFIED HYPERBARIC TECHNICIAN us Marguerite Wolfe MD LAB BLOOD ORDERABLES Final Resul t [facility] [address] Department [place] [address] * Differential, auto (05/22/2024 3:34 AM CERTIFIED HYPERBARIC TECHNICIAN) Neutrophil abs 4.1 1.5 - 6.5 K/cumm Imm gran abs 0.0 0.0 - 0.1 K/cumm [facility] Lymphocyte abs 1.0 0.8 - 3.3 K/cumm [facility] Monocyte abs 0.6 0.2 - 0.8 K/cumm [facility] Eosinophil abs 0.1 0.0 - 0.5 K/cumm [facility] Basophil abs 0.1 0.0 - 0.1 K/cumm [facility] Neutrophil pct 70.6 % [facility] Comment: Interpretive Data Percent cell count reference ranges are not reported, since discordance with absolute values may lead to misinterpretation of CBC data. Current Interpretive Data was last revised on 2017. Imm gran pct 0.2 % [facility] Comment: Interpretive Data Percent cell count reference ranges are not reported, since discordance with absolute values may lead to misinterpretation of CBC data. Current Interpretive Data was last revised on 2017. Lymphocyte pct 16.8 % [facility] Comment: Interpretive Data Percent cell count reference ranges are not reported, since discordance with absolute values may lead to misinterpretation of CBC data. Current Interpretive Data was last revised on 2017. Monocyte pct 9.4 % [facility] Comment: Interpretive Data Percent cell count reference ranges are not reported, since discordance with absolute values may lead to misinterpretation of CBC data. Current Interpretive Data was last revised on 2017. Eosinophil pct 2.1 % [facility] Comment: Interpretive Data Percent cell count reference ranges are not reported, since discordance with absolute values may lead to misinterpretation of CBC data. Current Interpretive Data was last revised on 2017. Basophil pct 0.9 % [facility] Comment: Interpretive Data Percent cell count reference ranges are not reported, since discordance with absolute values may lead to misinterpretation of CBC data. Current Interpretive Data was last revised on 2017. Blood 05/22/2024 3:34 AM CERTIFIED HYPERBARIC TECHNICIAN 05/22/2024 5:11 AM CERTIFIED HYPERBARIC TECHNICIAN Eddie Acosta DO LAB BLOOD ORDERABLES F inal Result Performing Organization Address [facility]/ZIP Co de Phone Number [facility] [address] [place] [employer] [address] * (ABNORMAL) CBC with auto differential (05/22/2024 3:34 AM CERTIFIED HYPERBARIC TECHNICIAN) WBC 5.8 3.8 - 9.9 K/cumm Hgb 11.6(L) 13.0 - 17.5 g/dL [facility] Hct 32.9(L) 38.9 - 50.3 % [facility] Plt 197 150 - 400 K/cumm [facility] MPV 9.9 9.1 - 12.3 fL [facility] RBC 3.50(L) 4.30 - 5.80 M/cumm [facility] MCV 94.0 81.3 - 96.4 fL [facility] MCH 33.1 27.1 - 33.3 pg [facility] MCHC 35.3 32.3 - 35.7 g/dL [facility] RDW CV 12.0 11.1 - 14.9 % [facility] RDW SD 41.3 35.7 - 48.1 fL [facility] NRBC abs 0.00 0.00 - 0.01 K/cumm [facility] Blood 05/22/2024 3:34 AM CERTIFIED HYPERBARIC TECHNICIAN 05/22/2024 5:11 AM CERTIFIED HYPERBARIC TECHNICIAN Eddie Acosta DO LAB BLOOD ORDERABLES F inal Result Performing Organization Address City/[facility]/ZIP Co de Phone Number [facility] [address] Department [place] [address] * (ABNORMAL) Basic metabolic panel (05/22/2024 3:34 AM CERTIFIED HYPERBARIC TECHNICIAN) [facility] Sodium 133(L) 135 - 145 mmol/L Potassium, pl 3.3 3.3 - 4.9 mmol/L [facility] Chloride 96(L) 97 - 110 mmol/L [facility] CO2 23 22 - 32 mmol/L [facility] Anion gap 14 2 - 15 mmol/L [facility] BUN 23 6 - 25 mg/dL [facility] Creatinine 0.77(L) 0.80 - 1.30 mg/dL [facility] Glucose 101 70 - 199 mg/dL [facility] Comment: Interpretive Data Fasting glucose >/= 126 mg/dl is diagnostic for diabetes. ?? Fasting is defined as no caloric intake for at least 8 hours. Fasting glucose between 100 mg/dl to 125 mg/dl is diagnostic of prediabetes. In a patient with classic symptoms of hyperglycemia or hyperglycemic crisis, a random glucose >/= 200 mg/dl is diagnostic for diabetes. In the absence of unequivocal hyperglycemia, results should be confirmed by repeat testing. The classification and Diagnosis of Diabetes Diabetes Care 202; 46: S19-S40. Current interpretive data was last revised 2022. Calcium 9.1 8.5 - 10.3 mg/dL [facility] Blood 05/22/2024 3:34 AM CERTIFIED HYPERBARIC TECHNICIAN 05/22/2024 5:12 AM CERTIFIED HYPERBARIC TECHNICIAN us Marguerite Wolfe MD LAB BLOOD ORDERABLES Final Resul t [facility] [address] Department [place] [address] * eGFR (05/21/2024 10:58 AM CERTIFIED HYPERBARIC TECHNICIAN) [facility] eGFR 90 >=60 mL/min/1. 73 m2 Comment: Interpretive Data Reference Interval Normal ?>/= 90 mL/min/1.73m2 Mildly decreased* ? 60 - 89 mL/min/1.73m2 Mildly to moderately decreased ?45 - 59 mL/min/1.73m2 Moderately to severely decreased ??30 - 44 mL/min/1.73m2 Severely decreased ?15 - 29 mL/min/1.73m2 Kidney Failure ?< 15 ??mL/min/1.73m2 *Relative to young adult level Estimated glomerular filtration rate is determined by the 2020 CKD-EPI equation recommended by the National Kidney Foundation (A Unifying Approach to GFR Estimation: Recommendations of the NKF-ASK Task Force on Reassessing the Inclusion of Race in Diagnosing Kidney Disease, JASN 2020). The CKD-EPI equation should not be used for patients with unstable renal function and has not been validated in children and those over 70. Current interpretive data was last reviewed 2021. Blood 05/21/2024 10:5 8 AM CERTIFIED HYPERBARIC TECHNICIAN 05/21/2024 11:47 AM CERTIFIED HYPERBARIC TECHNICIAN us Eddie Acosta DO LAB BLOOD ORDERABLES F inal Result [facility] [address] Department [place] [address] * (ABNORMAL) Comprehensive metabolic panel (05/21/2024 10:58 AM CERTIFIED HYPERBARIC TECHNICIAN) Sodium 136 135 - 145 mmol/L Potassium, pl 4.6 3.3 - 4.9 mmol/L [facility] Chloride 98 97 - 110 mmol/L [facility] CO2 25 22 - 32 mmol/L [facility] Anion gap 13 2 - 15 mmol/L [facility] BUN 20 6 - 25 mg/dL [facility] Creatinine 0.75(L) 0.80 - 1.30 mg/dL [facility] Glucose 115 70 - 199 mg/dL [facility] Comment: Interpretive Data Fasting glucose >/= 126 mg/dl is diagnostic for diabetes. ?? Fasting is defined as no caloric intake for at least 8 hours. Fasting glucose between 100 mg/dl to 125 mg/dl is diagnostic of prediabetes. In a patient with classic symptoms of hyperglycemia or hyperglycemic crisis, a random glucose >/= 200 mg/dl is diagnostic for diabetes. In the absence of unequivocal hyperglycemia, results should be confirmed by repeat testing. The classification and Diagnosis of Diabetes Diabetes Care 2021; 46: S19-S40. Current interpretive data was last revised 2022. Calcium 9.4 8.5 - 10.3 mg/dL [facility] Bilirubin, total 0.6 0.1 - 1.2 mg/dL [facility] Protein, pl 6.9 6.5 - 8.5 g/dL [facility] Albumin 3.9 3.5 - 5.0 g/dL [facility] Alk phos 55 40 - 130 Units/L [facility] ALT 25 7 - 55 Units/L [facility] AST 33 10 - 50 Units/L [facility] Blood 05/21/2024 10:5 8 AM CERTIFIED HYPERBARIC TECHNICIAN 05/21/2024 11:47 AM CERTIFIED HYPERBARIC TECHNICIAN us Eddie Acosta DO LAB BLOOD ORDERABLES F inal Result [facility] [address] Department [place] [address] * eGFR (05/19/2024 1:47 AM CDT) eGFR 85 >=60 mL/min/1. 73 m2 Comment: Interpretive Data Reference Interval Normal ?>/= 90 mL/min/1.73m2 Mildly decreased* ? 60 - 89 mL/min/1.73m2 Mildly to moderately decreased ?45 - 59 mL/min/1.73m2 Moderately to severely decreased ??30 - 44 mL/min/1.73m2 Severely decreased ?15 - 29 mL/min/1.73m2 Kidney Failure ?< 15 ??mL/min/1.73m2 *Relative to young adult level Estimated glomerular filtration rate is determined by the 2020 CKD-EPI equation recommended by the National Kidney Foundation (A Unifying Approach to GFR Estimation: Recommendations of the NKF-ASK Task Force on Reassessing the Inclusion of Race in Diagnosing Kidney Disease, JASN 2020). The CKD-EPI equation should not be used for patients with unstable renal function and has not been validated in children and those over 70. Current interpretive data was last reviewed 2021. Blood 05/19/2024 1:47 AM CDT 05/19/2024 2:24 AM CDT Sienna Aguilera BLEACHING SUPERVISOR LAB BLOOD ORDERA BLES Final Result [facility] Department [place] [address] * (ABNORMAL) CBC without differential (05/19/2024 1:47 AM CDT) WBC 9.1 3.8 - 9.9 K/cumm Hgb 12.5(L) 13.0 - 17.5 g/dL [facility] Hct 36.7(L) 38.9 - 50.3 % [facility] Plt 192 150 - 400 K/cumm [facility] MPV 10.0 9.1 - 12.[address] [facility] RBC 3.89(L) 4.30 - 5.80 M/cumm [facility] MCV 94.3 81.3 - 96.[address] [facility] MCH 32.1 27.1 - 33.[address] [facility] MCHC 34.1 32.3 - 35.7 g/dL [facility] RDW CV 12.7 11.1 - 14.9 % [facility] RDW SD 43.8 35.7 - 48.[address] [facility] NRBC abs 0.00 0.00 - 0.01 K/cumm [facility] Blood 05/19/2024 1:47 AM CDT 05/19/2024 2:24 AM CDT Sienna Aguilera BLEACHING SUPERVISOR LAB BLOOD ORDERA BLES Final Result Performing Organization Address City/[facility]/ZIP Co de Phone Number [facility] Department [place] [address] * Basic metabolic panel (05/19/2024 1:47 AM CDT) [facility] Sodium 137 135 - 145 mmol/L Potassium, pl 3.8 3.3 - 4.9 mmol/L [facility] Chloride 102 97 - 110 mmol/L [facility] CO2 27 22 - 32 mmol/L [facility] Anion gap 8 2 - 15 mmol/L [facility] BUN 22 6 - 25 mg/dL [facility] Creatinine 0.90 0.80 - 1.30 mg/dL [facility] Glucose 109 70 - 199 mg/dL [facility] Comment: Interpretive Data Fasting glucose >/= 126 mg/dl is diagnostic for diabetes. ?? Fasting is defined as no caloric intake for at least 8 hours. Fasting glucose between 100 mg/dl to 125 mg/dl is diagnostic of prediabetes. In a patient with classic symptoms of hyperglycemia or hyperglycemic crisis, a random glucose >/= 200 mg/dl is diagnostic for diabetes. In the absence of unequivocal hyperglycemia, results should be confirmed by repeat testing. The classification and Diagnosis of Diabetes Diabetes Care 202; 46: S19-S40. Current interpretive data was last revised 2022. Calcium 9.4 8.5 - 10.3 mg/dL [facility] Blood 05/19/2024 1:47 AM CDT 05/19/2024 2:24 AM CDT Sienna Aguilera NP LAB BLOOD ORDERA BLES Final Result Performing Organization Address [facility]/ZIP Co de Phone Number [facility] Department [place] [address] * (ABNORMAL) eGFR (05/17/2024 8:55 PM CDT) Pathologist [facility] eGFR 55(L) >=60 mL/min/1. 73 m2 Comment: Interpretive Data Reference Interval Normal ?>/= 90 mL/min/1.73m2 Mildly decreased* ? 60 - 89 mL/min/1.73m2 Mildly to moderately decreased ?45 - 59 mL/min/1.73m2 Moderately to severely decreased ??30 - 44 mL/min/1.73m2 Severely decreased ?15 - 29 mL/min/1.73m2 Kidney Failure ?< 15 ??mL/min/1.73m2 *Relative to young adult level Estimated glomerular filtration rate is determined by the 2020 CKD-EPI equation recommended by the National Kidney Foundation (A Unifying Approach to GFR Estimation: Recommendations of the NKF-ASK Task Force on Reassessing the Inclusion of Race in Diagnosing Kidney Disease, JASN 2020). The CKD-EPI equation should not be used for patients with unstable renal function and has not been validated in children and those over 70. Current interpretive data was last reviewed 2021. Blood 05/17/2024 8:55 PM CDT 05/17/2024 9:56 PM CDT us Sienna Aguilera BLEACHING SUPERVISOR LAB BLOOD ORDERA BLES Final Result [facility] Department [place] [address] * (ABNORMAL) CBC without differential (05/17/2024 8:55 PM CDT) Pathologist [facility] WBC 8.9 3.8 - 9.9 K/cumm Hgb 12.0(L) 13.0 - 17.5 g/dL [facility] Hct 35.1(L) 38.9 - 50.3 % [facility] Plt 201 150 - 400 K/cumm [facility] MPV 10.3 9.1 - 12.[address] [facility] RBC 3.67(L) 4.30 - 5.80 M/cumm [facility] MCV 95.6 81.3 - 96.[address] [facility] MCH 32.7 27.1 - 33.[address] [facility] MCHC 34.2 32.3 - 35.7 g/dL [facility] RDW CV 12.8 11.1 - 14.9 % [facility] RDW SD 44.8 35.7 - 48.[address] [facility] NRBC abs 0.00 0.00 - 0.01 K/cumm [facility] Blood 05/17/2024 8:55 PM CDT 05/17/2024 9:56 PM CDT Sienna Aguilera BLEACHING SUPERVISOR LAB BLOOD ORDERA BLES Final Result [facility] Department [place] [address] * Basic metabolic panel (05/17/2024 8:55 PM CDT) Sodium 139 135 - 145 mmol/L Potassium, pl 4.3 3.3 - 4.9 mmol/L [facility] Chloride 103 97 - 110 mmol/L [facility] CO2 26 22 - 32 mmol/L [facility] Anion gap 10 2 - 15 mmol/L [facility] BUN 24 6 - 25 mg/dL [facility] Creatinine 1.30 0.80 - 1.30 mg/dL [facility] Glucose 125 70 - 199 mg/dL [facility] Comment: Interpretive Data Fasting glucose >/= 126 mg/dl is diagnostic for diabetes. ?? Fasting is defined as no caloric intake for at least 8 hours. Fasting glucose between 100 mg/dl to 125 mg/dl is diagnostic of prediabetes. In a patient with classic symptoms of hyperglycemia or hyperglycemic crisis, a random glucose >/= 200 mg/dl is diagnostic for diabetes. In the absence of unequivocal hyperglycemia, results should be confirmed by repeat testing. The classification and Diagnosis of Diabetes Diabetes Care 202; 46: S19-S40. Current interpretive data was last revised 2022. Calcium 9.5 8.5 - 10.3 mg/dL [facility] Blood 05/17/2024 8:55 PM CDT 05/17/2024 9:56 PM CDT us Sienna Aguilera BLEACHING SUPERVISOR LAB BLOOD ORDERA BLES Final Result [facility] Department [place] [address] * eGFR (05/16/2024 9:10 PM CDT) eGFR 72 >=60 mL/min/1. 73 m2 Comment: Interpretive Data Reference Interval Normal ?>/= 90 mL/min/1.73m2 Mildly decreased* ? 60 - 89 mL/min/1.73m2 Mildly to moderately decreased ?45 - 59 mL/min/1.73m2 Moderately to severely decreased ??30 - 44 mL/min/1.73m2 Severely decreased ?15 - 29 mL/min/1.73m2 Kidney Failure ?< 15 ??mL/min/1.73m2 *Relative to young adult level Estimated glomerular filtration rate is determined by the 2020 CKD-EPI equation recommended by the National Kidney Foundation (A Unifying Approach to GFR Estimation: Recommendations of the NKF-ASK Task Force on Reassessing the Inclusion of Race in Diagnosing Kidney Disease, JASN 2020). The CKD-EPI equation should not be used for patients with unstable renal function and has not been validated in children and those over 70. Current interpretive data was last reviewed 2021. Blood 05/16/2024 9:10 PM CDT 05/16/2024 9:25 PM CDT Sienna Aguilera BLEACHING SUPERVISOR LAB BLOOD ORDERA BLES Final Result Performing Organization Address [facility] Co de Phone Number [facility] Department [place] [employer] [place] [address] * (ABNORMAL) CBC without differential (05/16/2024 9:10 PM CDT) WBC 6.7 3.8 - 9.9 K/cumm Hgb 11.9(L) 13.0 - 17.5 g/dL [facility] Hct 34.9(L) 38.9 - 50.3 % [facility] Plt 211 150 - 400 K/cumm [facility] MPV 9.7 9.1 - 12.[address] [facility] RBC 3.66(L) 4.30 - 5.80 M/cumm [facility] MCV 95.4 81.3 - 96.[address] [facility] MCH 32.5 27.1 - 33.[address] [facility] MCHC 34.1 32.3 - 35.7 g/dL [facility] RDW CV 12.8 11.1 - 14.9 % [facility] RDW SD 44.4 35.7 - 48.[address] [facility] NRBC abs 0.00 0.00 - 0.01 K/cumm [facility] Blood 05/16/2024 9:10 PM CDT 05/16/2024 9:25 PM CDT us Sienna Aguilera NP LAB BLOOD ORDERA BLES Final Result Performing Organization Address City/[facility]/ZIP Co de Phone Number [facility] Department [place] [address] * Basic metabolic panel (05/16/2024 9:10 PM CDT) Sodium 140 135 - 145 mmol/L Potassium, pl 3.7 3.3 - 4.9 mmol/L [facility] Chloride 104 97 - 110 mmol/L [facility] CO2 26 22 - 32 mmol/L [facility] Anion gap 10 2 - 15 mmol/L [facility] BUN 25 6 - 25 mg/dL [facility] Creatinine 1.04 0.80 - 1.30 mg/dL [facility] Glucose 121 70 - 199 mg/dL [facility] Comment: Interpretive Data Fasting glucose >/= 126 mg/dl is diagnostic for diabetes. ?? Fasting is defined as no caloric intake for at least 8 hours. Fasting glucose between 100 mg/dl to 125 mg/dl is diagnostic of prediabetes. In a patient with classic symptoms of hyperglycemia or hyperglycemic crisis, a random glucose >/= 200 mg/dl is diagnostic for diabetes. In the absence of unequivocal hyperglycemia, results should be confirmed by repeat testing. The classification and Diagnosis of Diabetes Diabetes Care 2021; 46: S19-S40. Current interpretive data was last revised 2022. Calcium 9.4 8.5 - 10.3 mg/dL [facility] Blood 05/16/2024 9:10 PM CDT 05/16/2024 9:25 PM CDT Sienna Aguilera BLEACHING SUPERVISOR LAB BLOOD ORDERA BLES Final Result [facility] Department [place] [address] * Urinalysis reflex to microscopic and culture Urine, bladder (05/16/2024 10:07 AM CDT) Pathologist [facility] Color, ur Straw Yellow Clarity, ur Clear Clear [facility] Specific gravity, ur 1.015 1.003 - 1.[address] [facility] pH, urine 7.[address] [facility] Comment: Interpretive Data ? Urine pH is affected by diet, medications, systemic acid-base disturbances, and renal tubular function. ??pH may affect urinary stone formation. ??For example, urine pH below 6.0 may help reduce the tendency for calcium phosphate stones and pH greater than 6.0 may reduce the tendency for uric acid stone formation. Source: [facility] Current Interpretive Data was last revised on 2017 Protein, ur ql Negative Negative [facility] Glucose, ur ql Negative Negative [facility] Ketones, ur Negative Negative [facility] Bilirubin, ur Negative Negative [facility] Blood, ur Negative Negative [facility] Urobilinogen, ur <2.0 <2.0 mg/dL [facility] Nitrite, ur Negative Negative [facility] Leukocyte esterase, ur Negative Negative [facility] UA reflex comment Reflex conditions for microscopic UA and culture not met. [facility] Urine, bladder 05/16/2024 10 :07 AM CDT 05/16/2024 10:33 AM CDT Sienna Aguilera NP LAB MICROBIOLOGY - GENERAL ORDERABLES Final Result [facility] Department [place] [address] * (ABNORMAL) eGFR (05/15/2024 9:10 PM CDT) eGFR 59(L) >=60 mL/min/1. 73 m2 Comment: Interpretive Data Reference Interval Normal ?>/= 90 mL/min/1.73m2 Mildly decreased* ? 60 - 89 mL/min/1.73m2 Mildly to moderately decreased ?45 - 59 mL/min/1.73m2 Moderately to severely decreased ??30 - 44 mL/min/1.73m2 Severely decreased ?15 - 29 mL/min/1.73m2 Kidney Failure ?< 15 ??mL/min/1.73m2 *Relative to young adult level Estimated glomerular filtration rate is determined by the 2020 CKD-EPI equation recommended by the National Kidney Foundation (A Unifying Approach to GFR Estimation: Recommendations of the NKF-ASK Task Force on Reassessing the Inclusion of Race in Diagnosing Kidney Disease, JASN 2020). The CKD-EPI equation should not be used for patients with unstable renal function and has not been validated in children and those over 70. Current interpretive data was last reviewed 2021. Blood 05/15/2024 9:10 PM CDT 05/15/2024 10:04 PM CDT us Sienna Aguilera NP LAB BLOOD ORDERA BLES Final Result [facility] Department [place] [address] * (ABNORMAL) CBC without differential (05/15/2024 9:10 PM CDT) WBC 7.8 3.8 - 9.9 K/cumm Hgb 11.7(L) 13.0 - 17.5 g/dL [facility] Hct 35.0(L) 38.9 - 50.3 % [facility] Plt 220 150 - 400 K/cumm [facility] MPV 10.0 9.1 - 12.[address] [facility] RBC 3.65(L) 4.30 - 5.80 M/cumm [facility] MCV 95.9 81.3 - 96.[address] [facility] MCH 32.1 27.1 - 33.[address] [facility] MCHC 33.4 32.3 - 35.7 g/dL [facility] RDW CV 12.7 11.1 - 14.9 % [facility] RDW SD 44.1 35.7 - 48.[address] [facility] NRBC abs 0.00 0.00 - 0.01 K/cumm [facility] Blood 05/15/2024 9:10 PM CDT 05/15/2024 10:06 PM CDT Sienna Aguilera BLEACHING SUPERVISOR LAB BLOOD ORDERA BLES Final Result Performing Organization Address City/[facility]/ZIP Co de Phone Number [facility] [place] [address] * Phosphorus (05/15/2024 9:10 PM CDT) [facility] Phosphorus, pl 2.8 2.3 - 4.5 mg/dL Blood 05/15/2024 9:10 PM CDT 05/15/2024 10:04 PM CDT Sienna Aguilera BLEACHING SUPERVISOR LAB BLOOD ORDERA BLES Final Result Performing Organization Address [facility] de Phone Number [facility] [place] [address] * Magnesium (05/15/2024 9:10 PM CDT) [facility] Magnesium 2.2 1.4 - 2.5 mg/dL Blood 05/15/2024 9:10 PM CDT 05/15/2024 10:04 PM CDT Sienna Aguilera BLEACHING SUPERVISOR LAB BLOOD ORDERA BLES Final Result Performing Organization Address City/[facility] Co de Phone Number [facility] [place] [place] [address] * Comprehensive metabolic panel (05/15/2024 9:10 PM CDT) [facility] Sodium 142 135 - 145 mmol/L Potassium, pl 4.4 3.3 - 4.9 mmol/L [facility] Chloride 105 97 - 110 mmol/L [facility] CO2 28 22 - 32 mmol/L [facility] Anion gap 9 2 - 15 mmol/L [facility] BUN 20 6 - 25 mg/dL [facility] Creatinine 1.23 0.80 - 1.30 mg/dL [facility] Glucose 109 70 - 199 mg/dL [facility] Comment: Interpretive Data Fasting glucose >/= 126 mg/dl is diagnostic for diabetes. ?? Fasting is defined as no caloric intake for at least 8 hours. Fasting glucose between 100 mg/dl to 125 mg/dl is diagnostic of prediabetes. In a patient with classic symptoms of hyperglycemia or hyperglycemic crisis, a random glucose >/= 200 mg/dl is diagnostic for diabetes. In the absence of unequivocal hyperglycemia, results should be confirmed by repeat testing. The classification and Diagnosis of Diabetes Diabetes Care 2021; 46: S19-S40. Current interpretive data was last revised 2022. Calcium 9.6 8.5 - 10.3 mg/dL [facility] Bilirubin, total 0.6 0.1 - 1.2 mg/dL [facility] Protein, pl 6.8 6.5 - 8.5 g/dL [facility] Albumin 4.1 3.5 - 5.0 g/dL [facility] Alk phos 59 40 - 130 Units/L [facility] ALT 26 7 - 55 Units/L [facility] AST 23 10 - 50 Units/L [facility] Blood 05/15/2024 9:10 PM CDT 05/15/2024 10:04 PM CDT Sienna Aguilera BLEACHING SUPERVISOR LAB BLOOD ORDERA BLES Final Result [facility] Department [place] [address] * IR Lumbar Puncture, Diagnostic incl Fluoro Guidance (05/15/2024 4:06 PM CDT) Anatomical Region Laterality Modality Spine N/A Radio Fluoroscop y 05/15/2024 4:17 PM CDT Impressions 05/15/2024 7:05 PM CDT Successful lumbar puncture under fluoroscopic guidance for lumbar drain trial with neurosurgery. Dictated by: Andrew Duque D.O. The radiology attending physician has personally reviewed this study, and had reviewed and/or edited this written report and agrees with it. Electronically signed by: Beck Hart MD, PHD Narrative 05/15/2024 7:05 PM CDT EXAMINATION: Diagnostic fluoroscopically guided lumbar puncture HISTORY: 84 years-old Male with lumbar drain trial. TECHNIQUE: The risks and benefits of the lumbar puncture including, but not limited to infection, bleeding, spinal headache, cerebrospinal fluid (CSF) leak requiring blood patch procedure, and irritation or damage to nerves causing pain or permanent injury were discussed with the patient. The patient was given the opportunity to ask questions. The patient acknowledged understanding, gave verbal and written consent, and wished to proceed. A time-out was performed prior to the procedure. Attending physician: Dr. Beck Hart MD, PHD was present for the entire procedure. The L2-L3 level was localized with fluoroscopy. The ribs were counted and this level confirmed. The skin overlying this level was sterilely prepped, draped, and infiltrated with 1% lidocaine for local anesthesia. Under intermittent fluoroscopic guidance, a 15 gauge 3.5 inch Quincke spinal needle was inserted into the thecal sac at this level. Clear CSF was identified. A total of 6.5 ml of CSF was removed and placed into 2 specimen tubes. ??Neurosurgery subsequently placed a lumbar drain. ??Please see neurosurgery note for relevant details. The patient was then transferred to the nursing area for further observation and 1 hour of bedrest. OPENING PRESSURE: Not performed. Procedure Note Beck Hart MD PhD - 05/15/2024 EXAMINATION: Diagnostic fluoroscopically guided lumbar puncture HISTORY: 84 years-old Male with lumbar drain trial. TECHNIQUE: The risks and benefits of the lumbar puncture including, but not limited to infection, bleeding, spinal headache, cerebrospinal fluid (CSF) leak requiring blood patch procedure, and irritation or damage to nerves causing pain or permanent injury were discussed with the patient. The patient was given the opportunity to ask questions. The patient acknowledged understanding, gave verbal and written consent, and wished to proceed. A time-out was performed prior to the procedure. Attending physician: Dr. Beck Hart MD, PHD was present for the entire procedure. The L2-L3 level was localized with fluoroscopy. The ribs were counted and this level confirmed. The skin overlying this level was sterilely prepped, draped, and infiltrated with 1% lidocaine for local anesthesia. Under intermittent fluoroscopic guidance, a 15 gauge 3.5 inch Quincke spinal needle was inserted into the thecal sac at this level. Clear CSF was identified. A total of 6.5 ml of CSF was removed and placed into 2 specimen tubes. Neurosurgery subsequently placed a lumbar drain. Please see neurosurgery note for relevant details. The patient was then transferred to the nursing area for further observation and 1 hour of bedrest. OPENING PRESSURE: Not performed. IMPRESSION: Successful lumbar puncture under fluoroscopic guidance for lumbar drain trial with neurosurgery. Dictated by: Andrew Duque D.O. The radiology attending physician has personally reviewed this study, and had reviewed and/or edited this written report and agrees with it. Electronically signed by: Beck Hart MD, PHD Anand Herrera MD IM FLUOROSCOPY PROCEDURES Final Result * Alzheimer???s disease evaluation, CSF (05/15/2024 4:05 PM CDT) AD Interpretation Negative Negative Comment: Interpretive Data A cerebrospinal fluid P-Cpv879 to Abeta42 ratio > 0.028 has been shown in clinical studies to have a positive agreement of 90.9% and a negative agreement of 89.2% with amyloid PET ([place] Food and Drug Administration). An Abeta42 concentration > 2,500 pg/mL, even in the context of P-Mft887 to Abeta42 ratio > 0.028, is not consistent with the presence of amyloid pathology. This test is not intended as a standalone test to diagnose Alzheimer? s disease and the results must be integrated into a comprehensive clinical evaluation. Failure to adhere to collection instructions in the Lab Test Catalog may yield falsely increased p-Mue467 / Abeta42 ratios. US Food and Drug Administration. FDA Application for CSF Elecsys test. ?? [cited 2022; Available from: https://www.accessdata.fda.gov/cdrh_docs/reviews/J949137.pdf Alzheimer's & dementia : the journal of the Alzheimer's Association 2018; 14(11): 1470-81. Bartolo PECK Jr., Cyrus RODARTE, Rogelio K, Leighton TAVAREZ, Daniella B, Coleen SB, et al. MICHAEL-AA Zoie??johanna NR, Diogenes B, Linsey Y, Declan BA, Duane Y, Rajni K, et al. CSF tau phosphorylation occupancies at T217 and T205 represent improved biomarkers of amyloid and tau pathology in Alzheimer? s disease. Nature Aging 2022. Cognitively healthy elderly. ?? [cited October 19, 2023]; Available from: [email or web address]://[email or web address]/biofinder_[email or web address]-[email or web address]/ Amy Giron, Heather Stout, Chevy E, Barbara H, Jean Claude CARLSON, Alisa T, et al. CSF biomarkers of Alzheimer's disease concord with amyloid-beta PET and predict clinical progression: A study of fully automated immunoassays in BioFINDER and ADNI cohorts. Research Framework: Toward a biological definition of Alzheimer's disease. Alzheimer's & dementia : the journal of the Alzheimer's Association 2018; 14(4): 535-62. Franca TRIPP, Mainor StoutD, Declan BARRERA, Dontrell C, Joel R, Damien M, et al. Cerebrospinal fluid biomarkers measured by Elecsys assays compared to amyloid imaging. Alzheimer's & dementia : the journal of the Alzheimer's Association 2018; 14(11): 1460-9. Current Interpretive Data was last revised on 2023. p-Tau/Abeta42 0.0232 <=0.0280 Ratio [facility] Comment: Interpretive Data A cerebrospinal fluid P-Qxu242 to Abeta42 ratio > 0.028 has been shown in clinical studies to have a positive agreement of 90.9% and a negative agreement of 89.2% with amyloid PET ([place] Food and Drug Administration). An Abeta42 concentration > 2,500 pg/mL, even in the context of P-Kjq951 to Abeta42 ratio > 0.028, is not consistent with the presence of amyloid pathology. This test is not intended as a standalone test to diagnose Alzheimer? s disease and the results must be integrated into a comprehensive clinical evaluation. Failure to adhere to collection instructions in the Lab Test Catalog may yield falsely increased p-Dcg014 / Abeta42 ratios. US Food and Drug Administration. FDA Application for CSF Elecsys test. ?? [cited 2022; Available from: https://www.accessdata.fda.gov/cdrh_docs/reviews/Z526458.pdf Alzheimer's & dementia : the journal of the Alzheimer's Association 2018; 14(11): 1470-81. Bartolo PECK, Jr., Cyrus DA, Rogelio K, Leighton MC, Daniella B, Coleen MASSEY, et al. MICHAEL-AA Zoie??johanna NR, Diogenes B, Linsey Y, Declan BARRERA, Duane Y, Rajni K, et al. CSF tau phosphorylation occupancies at T217 and T205 represent improved biomarkers of amyloid and tau pathology in Alzheimer? s disease. Nature Aging 2022. Cognitively healthy elderly. ?? [cited October 19, 2023]; Available from: https://[email or web address]/biofinder_cohorts/sdpwqnjipwg-kgngkpo-gjpxecl/ Amy Giron, Heather J, Chevy E, Barbara H, Jean Claude StoutQ, Alisa T, et al. CSF biomarkers of Alzheimer's disease concord with amyloid-beta PET and predict clinical progression: A study of fully automated immunoassays in BioFINDER and ADNI cohorts. Research Framework: Toward a biological definition of Alzheimer's disease. Alzheimer's & dementia : the journal of the Alzheimer's Association 2018; 14(4): 535-62. Franca TRIPP, Mainor CARDENAS, Declan BARRERA, Dontrell C, Joel R, Damien M, et al. Cerebrospinal fluid biomarkers measured by Elecsys assays compared to amyloid imaging. Alzheimer's & dementia : the journal of the Alzheimer's Association 2018; 14(11): 1460-9. Current Interpretive Data was last revised on 2023. Abeta42 792 >=514 pg/mL [facility] Comment: Interpretive Data The cerebrospinal fluid Abeta42 concentration alone should not be used to assess for the presence of amyloid pathology, as the P-Alp891 to Abeta42 ratio is significantly more accurate in classifying individuals with and without amyloid pathology (Amy et al., 2018; Franca et al., 2018). ??A low Abeta42 concentration in the context of normal P-Jdl100 and total tau may be consistent with Alzheimer-related pathological change (Bartolo et al., 2018). An Abeta42 concentration > 2,500 pg/mL, even in the context of P-Bfi780 to Abeta42 ratio > 0.023, is not consistent with the presence of amyloid pathology. This test is not intended as a standalone test to diagnose Alzheimer? s disease and the results must be integrated into a comprehensive clinical evaluation. The reference interval was determined from a cognitively normal, reference population . The testing method is an electrochemiluminescence assay manufactured by [employer]. Values obtained with different assay methods or kits may be different and cannot be used interchangeably. US Food and Drug Administration. FDA Application for CSF Elecsys test. ?? [cited 2022; Available from: https://www.accessdata.fda.gov/cdrh_docs/reviews/P854779.pdf Alzheimer's & dementia : the journal of the Alzheimer's Association 2018; 14(11): 1470-81. Bartolo PECK Jr., Cyrus DA, Rogelio K, Leighton TAVAREZ, Daniella Hughes, Coleen MASSEY, et al. MICHAEL-AA Zoie??johanna NR, Diogenes B, Linsey Y, Declan BARRERA, Duane Y, Rajni K, et al. CSF tau phosphorylation occupancies at T217 and T205 represent improved biomarkers of amyloid and tau pathology in Alzheimer? s disease. Nature Aging 2022. Cognitively healthy elderly. ?? [cited October 19, 2023]; Available from: https://[email or web address]/biofinder_cohorts/rzcpnjkcxyc-gqflarz-ggmlqwv/ Amy Giron, Heather J, Chevy E, Barbara H, Jean Claude StoutQ, Alisa T, et al. CSF biomarkers of Alzheimer's disease concord with amyloid-beta PET and predict clinical progression: A study of fully automated immunoassays in BioFINDER and ADNI cohorts. Research Framework: Toward a biological definition of Alzheimer's disease. Alzheimer's & dementia : the journal of the Alzheimer's Association 2018; 14(4): 535-62. Franca TRIPP, Mainor CARDENAS, Declan BARRERA, Dontrell C, Joel R, Damien M, et al. Cerebrospinal fluid biomarkers measured by Elecsys assays compared to amyloid imaging. Alzheimer's & dementia : the journal of the Alzheimer's Association 2018; 14(11): 1460-9. Current Interpretive Data was last revised on 2023. Phospho-Tau(181P) 18.4 <=40.9 pg/mL [facility] Comment: Interpretive Data The cerebrospinal fluid P-Srf052 concentration alone should not be used to assess for the presence of neurofibrillary tangle pathology, as studies have found that P- Rjw849 is more strongly associated with amyloid pathology than neurofibrillary tangle pathology (Zoie??telloy et al., 2022). A low Abeta42 concentration in the context of normal P-Rml662 and total tau may be consistent with Alzheimer-related pathological change (Bartolo et al., 2018). This test is not intended as a standalone test to diagnose Alzheimer? s disease and the results must be integrated into a comprehensive clinical evaluation. The reference interval was determined from a cognitively normal, reference population . The testing method is an electrochemiluminescence assay manufactured by [employer]. Values obtained with different assay methods or kits may be different and cannot be used interchangeably. US Food and Drug Administration. FDA Application for CSF Elecsys test. ?? [cited 2022; Available from: https://www.accessdata.fda.gov/cdrh_docs/reviews/N820008.pdf Alzheimer's & dementia : the journal of the Alzheimer's Association 2018; 14(11): 1470-81. Bartolo PECK Jr., Cyrus DA, Rogelio K, Leighton TAVAREZ, Daniella B, Coleen SB, et al. MICHAEL-AA Zoie??johanna NR, Diogenes B, Linsey Y, Declan BARRERA, Duane Y, Rajni K, et al. CSF tau phosphorylation occupancies at T217 and T205 represent improved biomarkers of amyloid and tau pathology in Alzheimer? s disease. Nature Aging 2022. Cognitively healthy elderly. ?? [cited October 19, 2023]; Available from: https://[email or web address]/biofinder_cohorts/jfcfobohyuv-xqvfdhg-hyvbfwh/ Amy Giron, Heather Stout, Chevy E, Barbara H, Jean Claude StoutQ, Alisa T, et al. CSF biomarkers of Alzheimer's disease concord with amyloid-beta PET and predict clinical progression: A study of fully automated immunoassays in BioFINDER and ADNI cohorts. Research Framework: Toward a biological definition of Alzheimer's disease. Alzheimer's & dementia : the journal of the Alzheimer's Association 2018; 14(4): 535-62. Franca TRIPP, Mainor CARDENAS, Declan BARRERA, Dontrell Tyler, Joel Leung, Damien M, et al. Cerebrospinal fluid biomarkers measured by Elecsys assays compared to amyloid imaging. Alzheimer's & dementia : the journal of the Alzheimer's Association 2018; 14(11): 1460-9. Current Interpretive Data was last revised on 2023. Total-TAU 216 <=431 pg/mL [facility] Comment: Interpretive data The cerebrospinal fluid total tau concentration alone should not be used to assess for the presence of neurofibrillary tangle or neurodegenerative pathology. A low Abeta42 concentration in the context of normal P-Lww402 and total tau may be consistent with Alzheimer-related pathological change (Bartolo et al., 2018). This test is not intended as a standalone test to diagnose Alzheimer? s disease and the results must be integrated into a comprehensive clinical evaluation. The reference interval was determined from a cognitively normal, reference population . The testing method is an electrochemiluminescence assay manufactured by [employer]. Values obtained with different assay methods or kits may be different and cannot be used interchangeably. US Food and Drug Administration. FDA Application for CSF Elecsys test. ?? [cited 2022; Available from: https://www.accessdata.fda.gov/cdrh_docs/reviews/C339037.pdf Alzheimer's & dementia : the journal of the Alzheimer's Association 2018; 14(11): 1470-81. Bartolo PECK Jr., Cyrus DA, Rogelio K, Leighton TAVAREZ, Daniella B, Coleen SB, et al. MICHAEL-AA Zoie??johanna NR, Diogenes B, Linsey Y, Declan BA, Duane Y, Rajni K, et al. CSF tau phosphorylation occupancies at T217 and T205 represent improved biomarkers of amyloid and tau pathology in Alzheimer? s disease. Nature Aging 2022. Cognitively healthy elderly. ?? [cited October 19, 2023]; Available from: https://[email or web address]/biofinder_cohorts/axksvsohevi-xfauchf-brwglxi/ Amy Giron, Heather Stout, Chevy E, Barbara H, Jean Claude CARLSON, Alisa T, et al. CSF biomarkers of Alzheimer's disease concord with amyloid-beta PET and predict clinical progression: A study of fully automated immunoassays in BioFINDER and ADNI cohorts. Research Framework: Toward a biological definition of Alzheimer's disease. Alzheimer's & dementia : the journal of the Alzheimer's Association 2018; 14(4): 535-62. Franca SE, Mainor StoutD, Declan BA, Dontrell C, Joel R, Damien M, et al. Cerebrospinal fluid biomarkers measured by Elecsys assays compared to amyloid imaging. Alzheimer's & dementia : the journal of the Alzheimer's Association 2018; 14(11): 1460-9. Current Interpretive Data was last revised on 2023. CSF 05/15/2024 4:05 PM CDT 05/15/2024 4:28 PM CDT us Anand Herrera MD LAB GENETIC TESTING Final R esult [facility] Department [place] [address] * XR chest 1 view (Portable) (05/15/2024 12:17 PM CDT) Anatomical Region Laterality Modality Body, Chest N/A Computed Radiogr aphy 05/15/2024 12:2 7 PM CDT Impressions 05/15/2024 12:27 PM CDT Lungs are well-expanded and clear. ??Heart size is normal. Atherosclerotic changes of the aorta. Electronically signed by: Geoff Stevens M.D. Narrative 05/15/2024 12:27 PM CDT EXAMINATION: 1 view chest radiograph Procedure Note Geoff Stevens MD - 05/15/2024 EXAMINATION: 1 view chest radiograph IMPRESSION: Lungs are well-expanded and clear. Heart size is normal. Atherosclerotic changes of the aorta. Electronically signed by: Geoff Stevens M.D. us Sienna Aguilera NP IMG XR PROCEDURE S Final Result * (ABNORMAL) eGFR (05/15/2024 11:05 AM CDT) Pathologist [facility] eGFR 57(L) >=60 mL/min/1. 73 m2 Comment: Interpretive Data Reference Interval Normal ?>/= 90 mL/min/1.73m2 Mildly decreased* ? 60 - 89 mL/min/1.73m2 Mildly to moderately decreased ?45 - 59 mL/min/1.73m2 Moderately to severely decreased ??30 - 44 mL/min/1.73m2 Severely decreased ?15 - 29 mL/min/1.73m2 Kidney Failure ?< 15 ??mL/min/1.73m2 *Relative to young adult level Estimated glomerular filtration rate is determined by the 2020 CKD-EPI equation recommended by the National Kidney Foundation (A Unifying Approach to GFR Estimation: Recommendations of the NKF-ASK Task Force on Reassessing the Inclusion of Race in Diagnosing Kidney Disease, JASN 2020). The CKD-EPI equation should not be used for patients with unstable renal function and has not been validated in children and those over 70. Current interpretive data was last reviewed 2021. Blood 05/15/2024 11:0 5 AM CDT 05/15/2024 11:26 AM CDT Sienna Aguilera BLEACHING SUPERVISOR LAB BLOOD ORDERA BLES Final Result [facility] Department [place] [address] * (ABNORMAL) CBC without differential (05/15/2024 11:05 AM CDT) [facility] WBC 6.9 3.8 - 9.9 K/cumm Hgb 12.0(L) 13.0 - 17.5 g/dL [facility] Hct 35.6(L) 38.9 - 50.3 % [facility] Plt 196 150 - 400 K/cumm [facility] MPV 10.0 9.1 - 12.[address] [facility] RBC 3.73(L) 4.30 - 5.80 M/cumm [facility] MCV 95.4 81.3 - 96.[address] [facility] MCH 32.2 27.1 - 33.[address] [facility] MCHC 33.7 32.3 - 35.7 g/dL [facility] RDW CV 12.7 11.1 - 14.9 % [facility] RDW SD 44.1 35.7 - 48.[address] [facility] NRBC abs 0.00 0.00 - 0.01 K/cumm [facility] Blood 05/15/2024 11:0 5 AM CDT 05/15/2024 11:26 AM CDT Sienna Aguilera NP LAB BLOOD ORDERA BLES Final Result Performing Organization Address City/[facility] Co de Phone Number [facility] Department [place] [employer] [place] [address] * Type and screen (05/15/2024 11:05 AM CDT) [facility] Jamia, indirect Negative ABO Rh A Positive [facility] Blood 05/15/2024 11:0 5 AM CDT 05/15/2024 11:32 AM CDT Narrative [facility] - 05/15/2024 12:21 PM CDT Has the patient had Daratumumab or Isatuximab in the past 6 months?->Unknown Sienna Aguilera NP LAB BLOOD BANK T EST ORDERABLES Final Result Performing Organization Address City/[facility]/ZIP Co de Phone Number [facility] [place] [employer] [place] [address] * Phosphorus (05/15/2024 11:05 AM CDT) Phosphorus, pl 3.3 2.3 - 4.5 mg/dL Blood 05/15/2024 11:0 5 AM CDT 05/15/2024 11:26 AM CDT Sienna Aguilera BLEACHING SUPERVISOR LAB BLOOD ORDERA BLES Final Result Performing Organization Address City/[facility]/ZIP Co de Phone Number [facility] Department [place] [address] * Magnesium (05/15/2024 11:05 AM CDT) [facility] Magnesium 2.2 1.4 - 2.5 mg/dL Blood 05/15/2024 11:0 5 AM CDT 05/15/2024 11:26 AM CDT Sienna Aguilera NP LAB BLOOD ORDERA BLES Final Result Performing Organization Address [facility] de Phone Number [facility] [place] [address] * Comprehensive metabolic panel (05/15/2024 11:05 AM CDT) Pathologist [facility] Sodium 138 135 - 145 mmol/L Potassium, pl 4.0 3.3 - 4.9 mmol/L [facility] Chloride 103 97 - 110 mmol/L [facility] CO2 28 22 - 32 mmol/L [facility] Anion gap 7 2 - 15 mmol/L [facility] BUN 20 6 - 25 mg/dL [facility] Creatinine 1.25 0.80 - 1.30 mg/dL [facility] Glucose 97 70 - 199 mg/dL [facility] Comment: Interpretive Data Fasting glucose >/= 126 mg/dl is diagnostic for diabetes. ?? Fasting is defined as no caloric intake for at least 8 hours. Fasting glucose between 100 mg/dl to 125 mg/dl is diagnostic of prediabetes. In a patient with classic symptoms of hyperglycemia or hyperglycemic crisis, a random glucose >/= 200 mg/dl is diagnostic for diabetes. In the absence of unequivocal hyperglycemia, results should be confirmed by repeat testing. The classification and Diagnosis of Diabetes Diabetes Care 2021; 46: S19-S40. Current interpretive data was last revised 2022. Calcium 9.8 8.5 - 10.3 mg/dL [facility] Bilirubin, total 0.6 0.1 - 1.2 mg/dL [facility] Protein, pl 7.1 6.5 - 8.5 g/dL [facility] Albumin 4.4 3.5 - 5.0 g/dL [facility] Alk phos 63 40 - 130 Units/L [facility] ALT 24 7 - 55 Units/L [facility] AST 22 10 - 50 Units/L [facility] Blood 05/15/2024 11:0 5 AM CDT 05/15/2024 11:26 AM CDT us Sienna Aguilera BLEACHING SUPERVISOR LAB BLOOD ORDERA BLES Final Result [facility] Department [place] [address] * ECG 12 lead (05/15/2024 10:09 AM CDT) Ventricular Rate EKG/Min 66 BPM [facility] Atrial Rate 66 BPM [facility] NV-Interval (MSEC) 166 ms [facility] QRS-Interval (MSEC) 98 ms [facility] QT-Interval (MSEC) 440 ms [facility] QTc 461 ms [facility] R [place] 196 degrees [facility] T [place] 154 degrees [facility] Diagnosis Suspect arm lead reversal, interpretation assumes no reversal Normal sinus rhythm Right superior axis deviation Abnormal ECG When compared with ECG of 31-JAN-2019 10:42, QRS axis Shifted left T wave inversion now evident in Lateral leads Confirmed by SARAH LYONS M.D ([id number]) on 05/15/2024 6:07:23 PM [facility] 05/15/2024 10:0 9 AM CDT 05/15/2024 6:07 PM CDT us Sienna Guerragartner BLEACHING SUPERVISOR ECG ORDERABLES Final Result [facility] * Differential, auto (05/15/2024 8:31 AM CDT) Neutrophil abs 4.6 1.5 - 6.5 K/cumm Imm gran abs 0.0 0.0 - 0.1 K/cumm [facility] Lymphocyte abs 0.8 0.8 - 3.3 K/cumm [facility] Monocyte abs 0.5 0.2 - 0.8 K/cumm [facility] Eosinophil abs 0.3 0.0 - 0.5 K/cumm [facility] Basophil abs 0.1 0.0 - 0.1 K/cumm [facility] Neutrophil pct 73.6 % [facility] Comment: Interpretive Data Percent cell count reference ranges are not reported, since discordance with absolute values may lead to misinterpretation of CBC data. Current Interpretive Data was last revised on 2017. Imm gran pct 0.3 % [facility] Comment: Interpretive Data Percent cell count reference ranges are not reported, since discordance with absolute values may lead to misinterpretation of CBC data. Current Interpretive Data was last revised on 2017. Lymphocyte pct 12.7 % [facility] Comment: Interpretive Data Percent cell count reference ranges are not reported, since discordance with absolute values may lead to misinterpretation of CBC data. Current Interpretive Data was last revised on 2017. Monocyte pct 7.6 % [facility] Comment: Interpretive Data Percent cell count reference ranges are not reported, since discordance with absolute values may lead to misinterpretation of CBC data. Current Interpretive Data was last revised on 2017. Eosinophil pct 4.7 % [facility] Comment: Interpretive Data Percent cell count reference ranges are not reported, since discordance with absolute values may lead to misinterpretation of CBC data. Current Interpretive Data was last revised on 2017. Basophil pct 1.1 % [facility] Comment: Interpretive Data Percent cell count reference ranges are not reported, since discordance with absolute values may lead to misinterpretation of CBC data. Current Interpretive Data was last revised on 2017. Blood 05/15/2024 8:31 AM CDT 05/15/2024 9:14 AM CDT Anand Herrera MD LAB BLOOD ORDERABLES Final Result Performing Organization Address City/[facility]/ZIP Co de Phone Number [facility] [place] [address] * (ABNORMAL) CBC with auto differential (05/15/2024 8:31 AM CDT) WBC 6.2 3.8 - 9.9 K/cumm Hgb 11.1(L) 13.0 - 17.5 g/dL [facility] Hct 33.0(L) 38.9 - 50.3 % [facility] Plt 195 150 - 400 K/cumm [facility] MPV 9.8 9.1 - 12.[address] [facility] RBC 3.44(L) 4.30 - 5.80 M/cumm [facility] MCV 95.9 81.3 - 96.[address] [facility] MCH 32.3 27.1 - 33.[address] [facility] MCHC 33.6 32.3 - 35.7 g/dL [facility] RDW CV 12.7 11.1 - 14.9 % [facility] RDW SD 44.4 35.7 - 48.[address] [facility] NRBC abs 0.00 0.00 - 0.01 K/cumm [facility] Blood 05/15/2024 8:31 AM CDT 05/15/2024 9:14 AM CDT Anand Herrera MD LAB BLOOD ORDERABLES Final Result [facility] [place] [address] * (ABNORMAL) aPTT (05/15/2024 8:31 AM CDT) aPTT 26(L) 28 - 38 sec Comment: Interpretive Data Heparin therapeutic range: 66.0 - 100.0 seconds. Range based on correlation with therapeutic heparin activity range of 0.3 - 0.7 Units/mL. Current interpretive data was last revised on 2023. Blood 05/15/2024 8:31 AM CDT 05/15/2024 9:14 AM CDT Anand Herrera MD LAB BLOOD ORDERABLES Final Result Performing Organization Address [facility] de Phone Number [facility] [place] [place] [address] * Protime-INR (05/15/2024 8:31 AM CDT) PT 12.3 9.7 - 13.0 sec INR 1.14 0.90 - 1.20 [facility] Comment: Interpretive data Oral anticoagulant therapeutic ranges: Venous thromboembolism prophylaxis or treatment: 2.0-3.0 CARDIOLOGY Standard range: 2.0-3.0 High-intensity range: 2.5-3.5 Refer to indication-specific guidelines for appropriate target ranges for prosthetic heart valve replacement. Current interpretive data was last revised on 2019. Blood 05/15/2024 8:31 AM CDT 05/15/2024 9:14 AM CDT Anand Herrera MD LAB BLOOD ORDERABLES Final Result Performing Organization Address [facility] de Phone Number [facility] [employer] [place] [place] [address] from Last 3 Months Insurance [facility] MEDIC[facility] HMO Advance Directives For more information, please contact: [phone] Documents on File Type Date Recorded Patient Physical Medicine Physician Expl anation ADVANCE DIRECTIVE 05/31/2024 1:03 AM YANELI R OF BEARING RING ASSEMBLER-MEDICAL ADVANCE DIRECTIVE 05/22/2024 7:21 PM POWER OF BEARING RING ASSEMBLER-MEDICAL ADVANCE DIRECTIVE 07/24/2021 9:18 PM POWER OF BEARING RING ASSEMBLER Power of Floral Associate 07/23/2021 8:03 AM Power of Floral Associate * Full Code (Latest Code Status on File) Date Activated Date Inactivated Comments 05/21/2024 5:48 AM 05/29/2024 7:56 PM * Full Code Date Activated Date Inactivated Comments 05/15/2024 9:52 AM 05/19/2024 8:31 PM Care Teams Enroller Relationship Specialty Start Date End Date Sohan Rojas MD [address] [address] PCP - General Family Medicine 07/10/22 Lamin Mcgraw MD [address] [place] [address] Consulting Physician Urology 07/27/22 Manuel Chowdhury MD [address] [place] [address] Consulting Physician Neurology 01/21/23 [place] [address] [facility] [address] [place] [address] Consulting Physician Neurology 01/21/23 Anand Herrera MD [address] [place] [address] Consulting Physician Neurosurgery 01/26/24 Bulmaro Parker, RN [address] [facility] [address] [place] [address] Boat Ride Operator 08/01/24
--- OUTSIDE RECORDS SUMMARY | 2024-08-07 02:22 | XMS_ITS | Encounter Summary ---
Author Organization [facility] Healthcare Address [address] [place] [address] Care Team Providers Care Special Forces Specialist Name Role Phone Sohan Rojas MD Primary Care Provider Lamin Mcgraw MD Unavailable [phone] Manuel Chowdhury MD Unavailable Shahrzad SONI MD, Carlos M. Unavailable Anand Herrera MD Unavailable [phone] An Dao MA Unavailable Unavailable Reason for Visit * Reason Comments Successful Phone Call Encounter Details Date Type Department Care Team (Late st Contact Info) Description 06/13/[address] [facility] Accountable Care Organization [address] [place] [id number] An Dao MA [address] [place] [address] [facility] [address] [place] [address] Social History Tobacco Use Types Packs/Day Years Used Date Smoking Tobacco: Former Pipe Q uit: 11/28/1979 Smokeless Tobacco: Never Alcohol Use Standard Drinks/Week Comments Not Currently 0 (1 standard drink = 0.6 oz pur e alcohol) [facility] Utilities Answer Date Recorded In the past 12 months has th e electric, gas, oil, or water company threatened to shut off services in your [...] often do you attend chur ch or buddhism services? Never 05/22/2024 Do you belong to any clubs o r organizations such as mandaeism groups, unions, fraternal or athletic groups, or [...] staff should administer the PHQ-9) 0 01/26/2024 [facility] - Occupational Stress Questionnaire Answer Date Recorded [...] any time in the past 12 m [facility], were you homeless or living in a care home (including now)? 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 Discharged to [facility] 05/29-06/12 discharged to memory care facility. Patient status post-discharge: Q1 - Better Status Details: - Spoke with patient's daughter, she states patient is doing well and is back at baseline, he will be receiving PT/OT at the facility he was discharged to. [facility], patient's daughter declined PCP follow up as patient is doing well and getting settled into memory care facility. Medications reviewed by facility when patient arrived.No new or worsening symptoms. Discharge Instructions Reviewed - Yes Details: - Medication Reconciliation Completed: - No Details: - Facility reviewed Appointment status: - Declined appointment Appointment Date: Will follow up at next appointment . No additional needs identified at this time. Provided my contact information for future needs. DAILY Bellamy [employer] Care Diesel Fitter Mechanic [phone] CY AND PLANNING MANAGER documented in this encounter Plan of Treatment Not on file documented as of this encounter Visit Diagnoses Not on filedocumented in this encounter Care Teams Special Forces Specialist Relationship Specialty Start Date End Date Sohan Rojas MD [address] [facility] [address] [place] [address] PCP - General Family Medicine 07/10/22 Lamin Mcgraw MD [address] [place] [address] Consulting Physician Urology 07/27/22 Manuel Chowdhury MD [address] [place] [address] Consulting Physician Neurology 01/21/23 [place] [address] [address] [facility] [address] [place] [address] Consulting Physician Neurology 01/21/23 Anand Herrera MD [address] [place] [address] Consulting Physician Neurosurgery 01/26/24 An Dao MA [address] [place] [address] [address] [place] [address] [employer] Care Diesel Fitter Mechanic 06/13/24 06/13/24 documented as of this encounter
--- OUTSIDE RECORDS SUMMARY | 2024-08-07 02:22 | XMS_ITS | Encounter Summary ---
Author Organization [facility] Healthcare Address [address] [place] [address] Care Team Providers Care Elementary Secretary Name Role Phone Sohan Rojas MD Primary Care Provider Lamin Mcgraw MD Unavailable [phone] Manuel Chowdhury MD Unavailable Shahrzad SONI MD, Carlos M. Unavailable Anand Herrera MD Unavailable Encounter Details Date Type Department Care Team (Late st Contact Info) Description 06/08/2024 NH/SNF Visit [facility] Post Acute Care [facility] [address] [place] [phone] Alison Benavides, HANDBAG DESIGNER [address] [place] [id number] 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 behavioral disturbance, psychotic disturbance, mood disturbance, or anxiety (HCC) (Primary Dx); Abnormality of gait and mobility; Insomnia due to medical condition; OAB (overactive bladder); Abnormal urinalysis; Mild intermittent asthma without complication; Hypercholesterolemia; 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 behavioral disturbance, psychotic disturbance, mood disturbance, or anxiety (HCC); Acute non-recurrent maxillary sinusitis; Gastroesophageal reflux disease without esophagitis Social History Tobacco Use Types Packs/Day Years Used Date Smoking Tobacco: Former Pipe Q uit: 11/28/1979 Smokeless Tobacco: Never Alcohol Use Standard Drinks/Week Comments Not Currently 0 (1 standard drink = 0.6 oz pur e alcohol) [facility] Utilities Answer Date Recorded In the past 12 months has e electric, gas, oil, or water company [...] often do you attend chur ch or confucianist services? Never 05/22/2024 Do you belong to any clubs o r organizations such as pentecostalism groups, unions, fraternal or athletic groups, or [...] staff should administer the PHQ-9) 0 01/26/2024 [facility] - [...] any time in the past 12 m [facility], were you homeless or living in a prison (including now)? No 05/22/2024 Personal Safety Answer [...] on file Legal Sex Male 8:20 PM [employer] SUPERINTENDENT Gender Identity Male 03/24/2021 7:53 PM CDT Sexual Orientation Straight 03/24/2021 7: 53 PM CDT Occupation Industry Job Start Date Job End Date retired Not on file Not on file Not on file documented as of this encounter Last Filed Vital Signs Vital Sign Reading Time Taken Comments Blood Pressure 141/77 06/08/2024 6:13 PM [employer] SUPERINTENDENT Pulse - - Temperature - - Respiratory Rate - - Oxygen Saturation - - Inhaled Oxygen Concentration - - Weight - - Height - - Body Mass Index - - documented in this encounter Ordered Prescriptions Prescription Sig Dispense Quantity Refills Last Filled Start Date End Date tamsulosin (FLOMAX) 0.4 mg extended release capsule Take 1 capsule (0.4 mg total) by mouth daily 30 capsule 06/08/2024 omeprazole (PriLOSEC) 20 mg capsuleIndications :Gastroesophageal reflux disease without esophagitis Take 1 capsule (20 mg total) by mouth daily 90 capsule 06/08/2024 multivitamin with minerals tablet Take 1 tablet by mouth daily 30 tablet 06/08/2024 fluticasone propionate (FLONASE) 50 mcg/actuation nasal sprayIndications:A llergic Rhinitis Administer 2 sprays into each nostril daily 3 each 06/08/2024 finasteride (PROSCAR) 5 mg tablet Take 1 tablet (5 mg total) by mouth daily 30 tablet 06/08/2024 5 escitalopram (Lexapro) 10 mg tablet Take 1 tablet (10 mg total) by mouth daily 30 tablet 06/08/2024 5 donepeziL (ARICEPT) 10 mg tabletIndications: Mild to Moderate Alzheimer's Type Dementia Take 1 tablet (10 mg total) by mouth nightly 30 tablet 06/08/2024 5 cranberry extract 200 mg capsule Take 2 capsules by mouth 3 (three) times a day 90 capsule 06/08/2024 cholecalciferol, vitamin D3, 1,000 unit tablet,chewable Take 1 tablet/chew tab by mouth daily 30 tablet 06/08/2024 fluticasone furoate-vilanteroL (Breo Ellipta) 100-25 mcg/dose diskus inhalerIndications :Mild intermittent asthma without complication Inhale 1 puff daily 180 each 06/08/2024 atorvastatin (LIPITOR) 20 mg tabletIndications: Hypercholesterolem ia Take 1 tablet (20 mg total) by mouth daily 30 tablet 06/08/2024 albuterol HFA (PROVENTIL HFA,VENTOLIN HFA,PROAIR HFA) 90 mcg/actuation inhalerIndications :Bronchospasm Prevention Inhale 2 puffs every 4 (four) hours as needed for wheezing 1 each 06/08/2024 acetaminophen (TYLENOL) 325 mg tabletIndications: Pain Take 2 tablets (650 mg total) by mouth every 4 (four) hours as needed for pain 30 tablet 06/08/2024 traZODone (DESYREL) 50 mg tabletIndications: insomnia associated with depression Take 1 tablet (50 mg total) by mouth nightly 30 tablet 06/08/2024 documented in this encounter Progress Notes * Alison Benavides HANDBAG DESIGNER - 06/08/2024 6:11 PM CST Images from the original note were not included. [facility] Facility Discharge Note Admitting Provider: Sudheer Mcdonough MD Discharge Provider: Sudheer Mcdonough MD Primary Care Physician at Discharge: Sohan Rojas MD [phone] Admission Date: 05/29 Discharge Date: 06/12 Admission Location: [facility] Assessment and Plan Diagnoses and all orders for this visit: 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 behavioral disturbance, psychotic disturbance, mood disturbance, or anxiety (HCC) (Primary) Assessment & Plan: Uncertain type of Dementia. Per Neurology Ddx would be Parkinson's disease, Lewy body dementia, or Alzheimer's disease with extrapyramidal features. NPH willis negative. Continue Aricept, Lexapro, Trazodone. Encourage sleep hygiene. PT/OT/ST. Orders: - donepeziL (ARICEPT) 10 mg tablet; Take 1 tablet (10 mg total) by mouth nightly Abnormality of gait and mobility Assessment & Plan: Greatly improved. DCP to [facility]. Insomnia due to medical condition Assessment & Plan: Believe s/t OAB/Dementia. Continue Trazodone 50mg nightly given at 2000 nightly, condom cath, Flomax dosed at 1700 & Finasteride in am. If continues to have issues could consider Mybertiq. Continue fu with Urology for OAB/BPH. OAB (overactive bladder) Abnormal urinalysis Assessment & Plan: Per Urology. Started on Augmentin. Nursing to fu on cx in am. Continue Augmentin at this time untilcompletion unless Ucx results obtained and not indicated or change needed. Mild intermittent asthma without complication - albuterol HFA (PROVENTIL HFA,VENTOLIN HFA,PROAIR HFA) 90 mcg/actuation inhaler; Inhale 2 puffs every 4 (four) hours as needed for wheezing - fluticasone furoate-vilanteroL (Breo Ellipta) 100-25 mcg/dose diskus inhaler; Inhale 1 puff daily Hypercholesterolemia Comments: condition chronic stable. refill meds. Orders: - atorvastatin (LIPITOR) 20 mg tablet; Take 1 tablet (20 mg total) by mouth daily 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 behavioral disturbance, psychotic disturbance, mood disturbance, or anxiety (HCC) Comments: IV treatment was planned, but later discarded He is currently on oral medication Continuous follow-up with Neurology Assessment & Plan: Uncertain type of Dementia. Per Neurology Ddx would be Parkinson's disease, Lewy body dementia, or Alzheimer's disease with extrapyramidal features. NPH willis negative. Continue Aricept, Lexapro, Trazodone. Encourage sleep hygiene. PT/OT/ST. Orders: - donepeziL (ARICEPT) 10 mg tablet; Take 1 tablet (10 mg total) by mouth nightly Acute non-recurrent maxillary sinusitis - fluticasone propionate (FLONASE) 50 mcg/actuation nasal spray; Administer 2 sprays into each nostril daily Gastroesophageal reflux disease without esophagitis - omeprazole (PriLOSEC) 20 mg capsule; Take 1 capsule (20 mg total) by mouth daily Other orders - traZODone (DESYREL) 50 mg tablet; Take 1 tablet (50 mg total) by mouth nightly - acetaminophen (TYLENOL) 325 mg tablet; Take 2 tablets (650 mg total) by mouth every 4 (four) hours as needed for pain - cholecalciferol, vitamin D3, 1,000 unit tablet,chewable; Take 1 tablet/chew tab by mouth daily - cranberry extract 200 mg capsule; Take 2 capsules by mouth 3 (three) times a day - escitalopram (Lexapro) 10 mg tablet; Take 1 tablet (10 mg total) by mouth daily - finasteride (PROSCAR) 5 mg tablet; Take 1 tablet (5 mg total) by mouth daily - multivitamin with minerals tablet; Take 1 tablet by mouth daily - tamsulosin (FLOMAX) 0.4 mg extended release capsule; Take 1 capsule (0.4 mg total) by mouth daily Subjective and Objective Patient ID: Gulshan Johnston is a 84 y.o. male. HPI/Rehab Course: 84-year-old male with history of anxiety, asthma, GERD, dyslipidemia, obstructive sleep apnea. He is a direct admit from [facility] for chief complaint of unspecified altered mental status. Briefly patient was admitted at [facility] on 05/15/2024 w/ chief complaint to rule out NPH. He presented with 2 years of memory and thinking problems cognitive in nature. He was on memantine. Has difficulty of mobility, worsening shuffling gait. He presented for lumbar drain trial for workup of normal pressure hydrocephalus. He underwent a lumbar drain placed with neuro IR 05/15, Alzheimer CSF labs negative; 05/18 lumbar drain DC site closed with stitches, no CSF leak noted after procedure per notes. No dx of NPH noted with trial. He was discharged to rehab facility where AMS & gait decline worsened & returned to hospital for ongoing sx. His fluid & lyte abnormalities were treated. NSY & Neuro were consulted. Dr. De La Vega believed patients sx suggestive of parkinsonism such as Lewy body dementia. Believes Ddx would be Parkinson's disease, Lewy body dementia, orAlzheimer's disease with extrapyramidal features. Recommends to continue Aricept, unable to tolerate Namenda in past so does not recommend starting. Trazodone was added to help with sleep hygiene. Discussed considering trial of low Sinemet outpt if sx continue also. For now rehab recommended for strengthening. He was transferred to [facility]. Of note: --Was referred for sleep study but not performed. --Daughter notes prior to [facility] admission for lumbar drain and NPH eval, patient was living alone. He does have a history of underlying dementia but is independent at home. She livesnearby and is able to help out with meals, groceries and checking in on him closely. Son & Dtr are considering [facility] /LTC after tx completion at [facility]. --Required sitter inpt, dc 05/27 per notes. Patient requiring sitter at [facility]. Family assisting & sitting with patient. 06/02: Patient resting in bedside chair. Dtr at bedside. He continues to have trouble with sleep. Dtr is asking for condom cath to be added at bedtime as patient is up and off all night urinating. Hefollows with Dr. Mcgraw for ho prostate cancer, takes flomax & finasteride routine. Is progressing with tx already, walking 150gt CGA. SS is working with family on dcp with placement. 06/06: Patient did have fu with Urology 06/06, UA reflux to UCx and started on Augmentin x7d. Patient saw Neurology 06/05 with [facility]NO. Has not been started on Sinemet. Dtr will fu outpt but is doing better. Will transfer to [facility] [place]. Vitals: Vitals BP 141/77 Physical Exam Vitals and nursing note reviewed. Constitutional: General: He is not in acute distress. Cardiovascular: Rate and Rhythm: Normal rate and regular rhythm. Pulmonary: Effort: Pulmonary effort is normal. Breath sounds: Normal breath sounds. Abdominal: General: Bowel sounds are normal. There is no distension. Palpations: Abdomen is soft. Tenderness: There is no abdominal tenderness. Musculoskeletal: General: Normal range of motion. Right lower leg: No edema. Left lower leg: No edema. Neurological: General: No focal deficit present. Mental Status: He is alert. Mental status is at baseline. Psychiatric: Cognition and Memory: Cognition is impaired. Memory is impaired. Pertinent Test Results: Recent Results (from the past week) Urinalysis reflex to microscopic and culture Urine Collection Time: 06/02/24 6:40 AM Specimen: Urine Result Value Ref Range Color, ur Yellow Yellow Clarity, ur Clear Clear Specific gravity, ur 1.005 1.003 - 1.030 pH, urine 5.5 Protein, ur ql Negative Negative Glucose, ur ql Negative Negative Ketones, ur Negative Negative Bilirubin, ur Negative Negative Blood, ur Negative Negative Urobilinogen, ur <2.0 <2.0 mg/dL Nitrite, ur Negative Negative Leukocyte esterase, ur Negative Negative UA reflex comment Reflex conditions for microscopic UA and culture not met. CBC without differential Collection Time: 06/02/24 9:36 AM Result Value Ref Range WBC 5.4 3.8 - 9.9 K/cumm Hgb 11.1 (L) 13.0 - 17.5 g/dL Hct 33.4 (L) 38.9 - 50.3 % Plt 235 150 - 400 K/cumm MPV 9.3 9.1 - 12.3 fL RBC 3.43 (L) 4.30 - 5.80 M/cumm MCV 97.4 (H) 81.3 - 96.4 fL MCH 32.4 27.1 - 33.3 pg MCHC 33.2 32.3 - 35.7 g/dL RDW CV 12.5 11.1 - 14.9 % RDW SD 43.9 35.7 - 48.1 fL NRBC abs 0.00 0.00 - 0.01 K/cumm Comprehensive metabolic panel Collection Time: 06/02/24 9:36 AM Result Value Ref Range Sodium 138 135 - 145 mmol/L Potassium, pl 4.1 3.3 - 4.9 mmol/L Chloride 106 97 - 110 mmol/L CO2 24 22 - 32 mmol/L Anion gap 8 2 - 15 mmol/L BUN 16 6 - 25 mg/dL Creatinine 0.96 0.80 - 1.30 mg/dL Glucose 98 70 - 199 mg/dL Calcium 9.3 8.5 - 10.3 mg/dL Bilirubin, total 0.2 0.1 - 1.2 mg/dL Protein, pl 5.7 (L) 6.5 - 8.5 g/dL Albumin 3.7 3.5 - 5.0 g/dL Alk phos 54 40 - 130 Units/L ALT 23 7 - 55 Units/L AST 19 10 - 50 Units/L eGFR Collection Time: 06/02/24 9:36 AM Result Value Ref Range eGFR 79 >=60 mL/min/1.73 m2 Active Issues Requiring Follow-up: Urology Fu Neuro Fu Discharge Disposition: Home Health: PT/OT vs Outpt DME: A rollator or walker would greatly improve patient's ability to perform MRADL's independently,device will assist the pt in grooming, eating, dressing, getting out of bed or chair. Patient is able to safely use walker/rollator. Patient's functional mobility deficit is resolved with use of the w alker/rollator. The walker will improve the overall aspects of increasing the IADL?? S and ADL's toimprove independence and safety. Discharge Medications: Current Outpatient Medications Medication Sig acetaminophen (TYLENOL) 325 mg tablet Take 2 tablets (650 mg total) by mouth every 4 (four) hours as needed for pain albuterol HFA (PROVENTIL HFA,VENTOLIN HFA,PROAIR HFA) 90 mcg/actuation inhaler Inhale 2 puffs every4 (four) hours as needed for wheezing atorvastatin (LIPITOR) 20 mg tablet Take 1 tablet (20 mg total) by mouth daily cholecalciferol, vitamin D3, 1,000 unit tablet,chewable Take 1 tablet/chew tab by mouth daily cranberry extract 200 mg capsule Take 2 capsules by mouth 3 (three) times a day donepeziL (ARICEPT) 10 mg tablet Take 1 tablet (10 mg total) by mouth nightly escitalopram (Lexapro) 10 mg tablet Take 1 tablet (10 mg total) by mouth daily finasteride (PROSCAR) 5 mg tablet Take 1 tablet (5 mg total) by mouth daily fluticasone furoate-vilanteroL (Breo Ellipta) 100-25 mcg/dose diskus inhaler Inhale 1 puff daily fluticasone propionate (FLONASE) 50 mcg/actuation nasal spray Administer 2 sprays into each nostrildaily multivitamin with minerals tablet Take 1 tablet by mouth daily omeprazole (PriLOSEC) 20 mg capsule Take 1 capsule (20 mg total) by mouth daily tamsulosin (FLOMAX) 0.4 mg extended release capsule Take 1 capsule (0.4 mg total) by mouth daily traZODone (DESYREL) 50 mg tablet Take 1 tablet (50 mg total) by mouth nightly Discharge Instructions: Discharge activity: Per therapy discharge instructions Discharge diet: Regular Post-Discharge Dressing Care: Per facility instructions Call provider for: difficulty breathing or chest pain Call provider for: redness, tenderness, or signs of infection (pain, swelling, redness, odor or green/yellow discharge around incision site) Call provider for: headache, visual disturbances, weakness and speech changes Outpatient Follow-Up: Future Appointments Date Time Provider Department Center 06/14/2024 9:00 AM Emperatriz Quintanilla NP PCP [facility] 07/06/2024 8:45 AM Derrell Mcintosh NP [facility] 40 NL 07/31/2024 2:45 PM Sohan Rojas MD PCP [facility] My total encounter time on 06/08/2024 was 35 minutes which was spent in the activities documented in the note. This includes time spent prior to the visit and after the visit in direct care of the patient. This time does not include time spent in any separately reportable services. Electronically signed by Alison Benavides NP 06/08/2024 6:34 PM Voice recognition software [employer] Direct was used dictate and transcribe this document. Bow Maker variances may occur. Despite proofreading, typographical errors may occur. Cosigned by Sudheer Mcdonough MD at 06/08/2024 7:15 PM [employer] SUPERINTENDENT [employer]NE [employer]PERATIONS SUPERINTENDENT [employer]NE [employer]PERATIONS SUPERINTENDENT documented in this encounter Miscellaneous Notes * Assessment & Plan Note - Alison Benavides NP - 06/08/2024 6:20 PM [employer] SUPERINTENDENT Associated Problem(s): Abnormal urinalysis Per Urology. Started on Augmentin. Nursing to fu on cx in am. Continue Augmentin at this time untilcompletion unless Ucx results obtained and not indicated or change needed. [employer] SUPERINTENDENT * Assessment & Plan Note - Alison Benavides NP - 06/08/2024 6:19 PM [employer] SUPERINTENDENT Associated Problem(s): 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 behavioral disturbance, psychotic disturbance, mood disturbance, or anxiety (HCC) Uncertain type of Dementia. Per Neurology Ddx would be Parkinson's disease, Lewy body dementia, or Alzheimer's disease with extrapyramidal features. NPH willis negative. Continue Aricept, Lexapro, Trazodone. Encourage sleep hygiene. PT/OT/ST. [employer] SUPERINTENDENT * Assessment & Plan Note - Alison Benavides NP - 06/08/2024 6:19 PM [employer] SUPERINTENDENT Associated Problem(s): Insomnia, unspecified Believe s/t OAB/Dementia. Continue Trazodone 50mg nightly given at 2000 nightly, condom cath, Flomax dosed at 1700 & Finasteride in am. If continues to have issues could consider Mybertiq. Continue fu with Urology for OAB/BPH. [employer] SUPERINTENDENT * Assessment & Plan Note - Alison Benavides NP - 06/08/2024 6:18 PM [employer] SUPERINTENDENT Associated Problem(s): Abnormality of gait and mobility Greatly improved. DCP to [facility]. [employer]PER[employer] SUPERINTENDENT documented in this encounter Plan of Treatment Not on file documented as of this encounter Visit Diagnoses Diagnosis 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 behavioral disturbance, psychotic disturbance, mood disturbance, or anxiety (HCC)- Primary Abnormality of gait and mobility Insomnia due to medical condition Organic insomnia, unspecified OAB (overactive bladder) Abnormal urinalysis Other nonspecific finding on examination of urine Mild intermittent asthma without complication Hypercholesterolemia Pure hypercholesterolemia Acute non-recurrent maxillary sinusitis Gastroesophageal reflux disease without esophagitis Esophageal reflux documented in this encounter Discontinued Medications Medication Sig Discontinue Reason Start Date End Da te omega [id number] oil 360-1,200 mg capsule,delayed release(DR/EC) Take 1 capsule by mouth daily HOLD THIS MEDICATION UNTIL YOU FOLLOW UP WITH NEUROSURGERY 05/19/2024 06/08/2024 vitamin b complex (Vitamins B Complex) tablet Take 1 tablet by mouth daily 06/08/2024 vitamin E (AQUASOL E) 1,000 unit capsule Take 5 capsules (5,000 Units total) by mouth daily HOLD THIS MEDICATION UNTIL YOU FOLLOW UP WITH NEUROSURGERY 05/19/2024 06/08/2024 cranberry extract 200 mg capsule Take 2 capsules by mouth 3 (three) times a day Reorder 03/10/2016 06/08/2024 fluticasone propionate (FLONASE) 50 mcg/actuation nasal sprayIndications:Acute non-recurrent maxillary sinusitis Administer 2 sprays into each nostril daily Reorder 04/15/2022 06/08/2024 cholecalciferol, vitamin D3, 1,000 unit tablet,chewable Take 1 tablet/chew tab by mouth daily Reorder 06/08/2024 albuterol HFA (PROVENTIL HFA,VENTOLIN HFA,PROAIR HFA) 90 mcg/actuation inhalerIndications:Bro nchospasm Prevention Inhale 2 puffs every 4 (four) hours as needed for wheezing Reorder 07/27/2022 06/08/2024 Breo Ellipta 100-25 mcg/dose diskus inhalerIndications:Mil d intermittent asthma without complication INHALE 1 PUFF BY MOUTH EVERY DAY Reorder 04/28/2023 06/08/2024 donepeziL (ARICEPT) 10 mg tabletIndications:Mild to Moderate Alzheimer's Type Dementia Take 1 tablet (10 mg total) by mouth nightly Reorder 07/26/2023 06/08/2024 escitalopram (Lexapro) 10 mg tablet Take 1 tablet (10 mg total) by mouth daily Reorder 07/30/2023 06/08/2024 atorvastatin (LIPITOR) 20 mg tabletIndications:Hype rcholesterolemia TAKE 1 TABLET BY MOUTH EVERY DAY Reorder 02/28/2024 06/08/2024 omeprazole (PriLOSEC) 20 mg capsuleIndications:Gas troesophageal reflux disease without esophagitis TAKE 1 CAPSULE BY MOUTH EVERY DAY Reorder 03/02/2024 06/08/2024 finasteride (PROSCAR) 5 mg tablet Take 1 tablet (5 mg total) by mouth daily Reorder 05/20/2024 06/08/2024 acetaminophen (TYLENOL) 325 mg tabletIndications:Pain Take 2 tablets (650 mg total) by mouth every 4 (four) hours as needed for pain Reorder 05/19/2024 06/08/2024 tamsulosin (FLOMAX) 0.4 mg extended release capsule Take 1 capsule (0.4 mg total) by mouth daily Reorder 06/08/2024 multivitamin with minerals tablet Take 1 tablet by mouth daily Reorder 06/08/2024 traZODone (DESYREL) 50 mg tablet Take 0.5 tablets (25 mg total) by mouth nightly Reorder 05/29/2024 06/08/2024 documented as of this encounter Care Teams Elementary Secretary Relationship Specialty Start Date End Date Sohan Rojas MD [address] [address] PCP - General Family Medicine 07/10/22 Lamin Mcgraw MD [address] [place] [address] Consulting Physician Urology 07/27/22 Manuel Chowdhury MD [address] [place] [id number] Consulting Physician Neurology 01/21/23 [place] [address] [facility] [address] [place] [address] Consulting Physician Neurology 01/21/23 Anand Herrera MD [address] [place], [place] [id number] Consulting Physician Neurosurgery 01/26/24 documented as of this encounter
--- OUTSIDE RECORDS SUMMARY | 2024-08-07 02:22 | XMS_ITS | Encounter Summary ---
Author Organization [facility] Healthcare Address [address] [place] [address] Care Team Providers Care Fretted Instruments Inspector Name Role Phone Sohan Rojas MD Primary Care Provider Lamin Mcgraw MD Unavailable Manuel Chowdhury MD Unavailable Shahrzad SONI MD, Carlos M. Unavailable [phone] Anand Herrera MD Unavailable Encounter Details Date Type Department Care Team (Late st Contact Info) Description 06/12/[address] [facility] Medical Group Post Acute Care [address] [facility] [facility] [address], [place] [address] Tammy Negro, JER [address] [place] [address] [address] [place] [address] Social History Tobacco Use Types Packs/Day Years Used Date Smoking Tobacco: Former Pipe Q uit: 11/28/1979 Smokeless Tobacco: Never Alcohol Use Standard Drinks/Week Comments Not Currently 0 (1 standard drink = 0.6 oz pur e alcohol) [facility] Utilities Answer Date Recorded In the [...] often do you attend chur ch or jew services? Never 05/22/2024 Do you belong to any clubs o r organizations such as temple groups, unions, fraternal or athletic groups, or [...] staff should administer the PHQ-9) 0 01/26/2024 [facility] of Occupat ional Health - Occupational Stress [...] any time in the past 12 m [facility], were you homeless or living in a assisted (including now)? 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 Sudheer Mcdonough' care. Patient's discharge summary has been uploaded to media buyer and patients chart has been sent to the [facility] ACO for outreach.. ER MACHINE OPERATOR documented in this encounter Plan of Treatment Not on file documented as of this encounter Visit Diagnoses Not on filedocumented in this encounter Care Teams Fretted Instruments Inspector Relationship Specialty Start Date End Date Sohan Rojas MD [address] [facility] [address] [place] [address] PCP - General Family Medicine 07/10/22 Lamin Mcgraw MD [address] [place] [address] Consulting Physician Urology 07/27/22 Manuel Chowdhury MD [address] [place] [address] Consulting Physician Neurology 01/21/23 [place] [address] [address] [facility] [address] [place] [address] Consulting Physician Neurology 01/21/23 Anand Herrera MD [address] [place] [address] Consulting Physician Neurosurgery 01/26/24 documented as of this encounter
--- OUTSIDE RECORDS SUMMARY | 2024-08-07 02:22 | XMS_ITS | Encounter Summary ---
Author Organization [facility] Healthcare Address [address] [place] [address] Care Team Providers Care Global Compensation Manager Name Role Phone Sohan Rojas MD Primary Care Provider Lamin Mcgraw MD Unavailable [phone] Manuel Chowdhury MD Unavailable Shahrzad SONI MD, Carlos M. Unavailable Anand Herrera MD Unavailable An Dao MA Unavailable Unavailable Reason for Visit * Reason Onset Date Comments CLAUDIA Questions 06/08/2024 Encounter Details Date Type Department Care Team (Late st Contact Info) Description 06/08/2024 Telephone [facility] Medical Group Primary Care at [address] [address] Sohan Rojas MD [address] [place] [address] [address] [place] [address] CLAUDIA Questions Social History Tobacco Use Types Packs/Day Years Used Date Smoking Tobacco: Former Pipe Q uit: 11/28/1979 Smokeless Tobacco: Never Alcohol Use Standard Drinks/Week Comments Not Currently 0 (1 standard drink = 0.6 oz pur e alcohol) [facility] Utilities Answer Date Recorded In the past 12 months has [employer] electric, gas, oil, or water company threatened [...] often do you attend chur ch or yazidi services? Never 05/22/2024 Do you belong to any clubs o r organizations such as episcopalian groups, unions, fraternal or athletic groups, or [...] staff should administer the PHQ-9) 0 01/26/2024 [facility] [place] of Occupat ionsd Health - Occupational Stress Questionnaire Answer Date [...] were you homeless or living in a senior care (including now)? 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 No Will patient be transferred to another inpatient facility (e.g. longterm, inpatient rehab, etc.)? No The patient was not discharged at the time of the call. Patient will need to be contacted after discharge to complete remaining questions. Date Admitted: 05.29.24 Tentative Discharge Date: 06.12 Facility Admitted To: [facility] Date of CLAUDIA Appointment: 06.14.24 Additional Comments: N/A Does message need to be routed? Yes-Action Needed TRICIAN MARINE documented in this encounter Plan of Treatment Not on file documented as of this encounter Visit Diagnoses Not on filedocumented in this encounter Care Teams Global Compensation Manager Relationship Specialty Start Date End Date Sohan Rojas MD [address] [facility] [address] [place] [address] PCP - General Family Medicine 07/10/22 Lamin Mcgraw MD [address] [place] [address] Consulting Physician Urology 07/27/22 Manuel Chowdhury MD [address] [place] [address] Consulting Physician Neurology 01/21/23 [place] [address] [address] [facility] [address] [place] [address] Consulting Physician Neurology 01/21/23 Anand Herrera MD [address] [place], [place] [address] Consulting Physician Neurosurgery 01/26/24 An Dao MA [address] [facility] [address] [place] [address] ACO Care Special Education Superintendent 06/13/24 06/13/24 documented as of this encounter
--- OUTSIDE RECORDS SUMMARY | 2024-08-07 02:22 | XMS_ITS | Continuity of Care Document ---
Author Organization [facility] Address [address] [facility] [address] [place] [address] Phone Care Team Providers Care Middle School Tutor Name Role Phone Yovany Malave PT Unavailable Unavailable Procedures Procedure Date Therapeutic Activities Neuromuscular Re-Ed Therapeutic Activities Neuromuscular Re-Ed Therapeutic Activities Neuromuscular Re-Ed Therapeutic Activities Neuromuscular Re-Ed Therapeutic Activities Neuromuscular Re-Ed Therapeutic Activities Neuromuscular Re-Ed Therapeutic Activities Neuromuscular Re-Ed Therapeutic Activities Neuromuscular Re-Ed Therapeutic Activities Neuromuscular Re-Ed Doc neg elder mal no plan PT Evaluation Moderate Complexity Therapeutic Activities Neuromuscular Re-Ed Advance Directives Directive Yes / No Effective Date File Name No Information Encounters Encounter Description Practice Location Reason(s) For Visit Diagnoses Date Provider Providers Copied on Encounter [facility] [facility] [address], [place], [place], [id number], [place] tel:[phone] [place] No Information 3 Frieda Pedroza. . [facility], [address], [place], [place], [id number], [place] tel:[phone] [place] No Information Apr-1 8-202 3 Dellamano Yovany. . Referring Provider: Zain Park, [address] [place] [address], [facility]. tel:[phone] [place] [address], [place], [place], [id number], tel:[phone] [place] No Information Apr-1 0-202 3 Dellamano Yovany. . Referring Provider: Zain Park, [address] [place] [address], [facility]. tel:[phone] [place] [address], [place], [place], [id number], [place] tel:[phone] [place] No Information Apr-0 7-202 3 Dellamano Yovany. . Referring Provider: Zain Park, [address] [place] [address], [facility]. tel:[phone] [place] [address], [id number], [place] tel:[phone] [place] No Information Apr-0 4-202 3 Dellamano Yovany. . Referring Provider: Zain Park, [address] [place] [address], [facility]. tel:[phone] [place] [address], [id number], tel:[phone] [place] No Information Mar-2 8-202 3 Dellamano Yovany. . Referring Provider: Zain Park, [address] [place] [address], [facility]. tel:[phone] [place] [address], [id number], [place] tel:[phone] [place] No Information Mar-2 3-202 3 Dellamano Yovany. . Referring Provider: Zain Park, [address] [place] [address], [facility]. tel:[phone] [place] [address], [place], [place], [id number], [place] tel:[phone] [place] No Information Mar-2 1-202 3 Dellamano Yovany. . Referring Provider: Zain Park, [address] [place] [address], [address]. tel:[phone] [place] [address], [place], [place], [id number], tel:[phone] [place] No Information Mar-1 6-202 3 Dellamano Yovany. . Referring Provider: Zain Park, [address] [place] [address], [facility]. tel:[phone], [id number], tel:[phone] [place] No Information Mar-1 4-202 3 Dellamano Yovany. . Referring Provider: Zain Park, [address] [place] [address], [facility]. tel:[phone], [id number], tel:[phone] [place] No Information Mar-1 0-202 3 Dellamano Yovany. . Referring Provider: Zain Park, [address] [place] [address], [facility]. tel:[phone] Family History Family Member Type Diagnosis Age At Onset No Information Payers Payer name Insurance type Covered alliance party ID Authorashleya merrill(s) [employer] Medicare Replacement 16 [id number] Social History Type Description Quantity Date Captured Comments Sex Male Smoking Status No Information Chief Complaint And Reason For Visit No Information Reason For Referral Reason For Referral No Information History Of Present Illness Encounter Date Complaint History Of Prese nt Illness No Information Functional Status Date Functional Assessmen t No Information Instructions Date Instruction Additional Infor mation No Information Assessments Type Assessment Date No Information Patient Care Teams Name Effective Dates (start - stop) Status Members No Information
--- OUTSIDE RECORDS SUMMARY | 2024-08-07 02:22 | XMS_ITS | Encounter Summary ---
Author Organization [facility] Healthcare Address [address] [place] [address] Care Team Providers Care Zipper Trimmer Name Role Phone Sohan Rojas MD Primary Care Provider Lamin Mcgraw MD Unavailable [phone] Manuel Chowdhury MD Unavailable Shahrzad SONI MD, Carlos M. Unavailable Anand Herrera MD Unavailable Encounter Details Date Type Department Care Team (Late st Contact Info) Description 06/09/2024 Documentation [facility] Medical Group Post Acute Care [facility] [address] [place] [address] Alison Benavides, BIBLICAL LANGUAGES PROFESSOR [address] [place] [address] Social History Tobacco Use Types Packs/Day Years Used Date Smoking Tobacco: Former Pipe Q uit: 11/28/1979 Smokeless Tobacco: Never Alcohol Use Standard Drinks/Week Comments Not Currently 0 (1 standard drink = 0.6 oz pur e alcohol) [facility] Utilities Answer Date Recorded In the [...] often do you attend chur ch or mosque services? Never 05/22/2024 Do you belong to any clubs o r organizations such as rastafarian groups, unions, fraternal or athletic groups, or [...] staff should administer the PHQ-9) 0 01/26/2024 [facility] of Occupat ional Health - [...] any time in the past 12 m [facility], were you homeless or living in a jail (including now)? 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 Mcgraw office & <10,000 growth. Abx dc. Probiotic started for diarrhea. Will monitor. Imodium PRN. Nursing also ordered to dc suture to lumbar from LP [facility]. SCAPER HELPER documented in this encounter Plan of Treatment Not on file documented as of this encounter Visit Diagnoses Not on filedocumented in this encounter Care Teams Zipper Trimmer Relationship Specialty Start Date End Date Sohan Rojas MD [address] [facility] [address] [place] [address] PCP - General Family Medicine 07/10/22 Lamin Mcgraw MD [address] [place] [address] Consulting Physician Urology 07/27/22 Manuel Chowdhury MD [address] [place] [address] Consulting Physician Neurology 01/21/23 [place] [address] [facility] [address] [place] [address] Consulting Physician Neurology 01/21/23 Anand Herrera MD [address] [place] [address] Consulting Physician Neurosurgery 01/26/24 documented as of this encounter
--- OUTSIDE RECORDS SUMMARY | 2024-08-07 02:22 | XMS_ITS | Encounter Summary ---
Author Organization [facility] Healthcare Address [address] [place] [address] Care Team Providers Care Sybase Developer Name Role Phone Sohan Rojas MD Primary Care Provider Lamin Mcgraw MD Unavailable [phone] Manuel Chowdhury MD Unavailable Shahrzad SONI MD, Carlos M. Unavailable [phone] Anand Herrera MD Unavailable Encounter Details Date Type Department Care Team (Late st Contact Info) Description 06/27/2024 Telephone [facility] Home Care Services [address] [place] [address] Ora Chowdhury Social History Tobacco Use Types Packs/Day Years Used Date Smoking Tobacco: Former Pipe Q uit: 11/28/1979 Smokeless Tobacco: Never Alcohol Use Standard Drinks/Week Comments Not Currently 0 (1 standard drink = 0.6 oz pur e alcohol) [facility] Utilities Answer Date Recorded In the past 12 months has [employer] electric, gas, oil, or water company threatened [...] often do you attend chur ch or tenriism services? Never 05/22/2024 Do you belong to any clubs o r organizations such as spiritism groups, unions, fraternal or athletic groups, or [...] staff should administer the PHQ-9) 0 01/26/2024 [facility] - Occupational Stress Questionnaire Answer Date [...] any time in the past 12 m [facility], were you homeless or living in a retirement (including now)? 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 [facility] with Driss at [facility] to inform of the decline. TATION OPERATOR AUTOMATIC documented in this encounter Plan of Treatment Not on file documented as of this encounter Visit Diagnoses Not on filedocumented in this encounter Care Teams Sybase Developer Relationship Specialty Start Date End Date Sohan Rojas MD [address] [address] PCP - General Family Medicine 07/10/22 Lamin Mcgraw MD [address] [place] [address] [place] [address] Consulting Physician Urology 07/27/22 Manuel Chowdhury MD [address] [address] Consulting Physician Neurology 01/21/23 [place] [address] [facility] [address] [place] [address] Consulting Physician Neurology 01/21/23 Anand Herrera MD [address] [place] [address] Consulting Physician Neurosurgery 01/26/24 documented as of this encounter
--- OUTSIDE RECORDS SUMMARY | 2024-08-07 02:22 | XMS_ITS ---
Author Organization [address] Address [address] [place] [address] Care Team Providers Care Ballistics Teacher Name Role Phone Sohan Rojas MD Primary Care Provider Lamin Mcgraw MD Unavailable [phone] Manuel Chowdhury MD Unavailable Shahrzad SONI MD, Carlos M. Unavailable [phone] Anand Herrera MD Unavailable Bulmaro Parker RN Unavailable [phone] Active Problems Problem Noted Date Diagnosed Date Abnormal urinalysis 06/08/2024 Assessment & Plan (06/08/2024 6:20 PM PATIENT SAFETY MANAGER): Per Urology. Started on Augmentin. Nursing to fu on cx in am. Continue Augmentin at this time until completion unless Ucx results obtained and not indicated or change needed. OAB (overactive bladder) 06/02/2024 Assessment & Plan (06/02/2024 9:38 AM PATIENT SAFETY MANAGER): Increased urination at night. UA negative for UTI. Condom cath added at nighttime with BPH meds dosed accordingly. Monitor for improvement or need to add Mybertiq. Abnormality of gait and mobility 01/05/2024 Assessment & Plan (06/08/2024 6:18 PM PATIENT SAFETY MANAGER): Greatly improved. DCP to [facility]. Assessment & Plan (05/30/2024 10:50 AM PATIENT SAFETY MANAGER): I endorse admission to [facility] care. The patient is at risk of [...] for NPH. Patient interested in possibly getting GASOLINE ATTENDANT shunt to help with mobility, falls, and cognitive decline. Referral to physical therapy to help with balance. Moderate late onset Alzheime r's dementia without behavioral disturbance, psychotic disturbance, mood disturbance, or anxiety 10/26/2022 Assessment & Plan (06/08/2024 6:19 PM PATIENT SAFETY MANAGER): Uncertain type of Dementia. Per Neurology Ddx would be Parkinson's disease, Lewy body dementia, or Alzheimer's disease with extrapyramidal features. NPH willis negative. Continue Aricept, Lexapro, Trazodone. Encourage sleep hygiene. PT/OT/ST. Assessment & Plan (06/02/2024 9:36 AM PATIENT SAFETY MANAGER): Uncertain type of Dementia. Per Neurology Ddx would be Parkinson's disease, Lewy body dementia, or Alzheimer's disease with extrapyramidal features. NPH willis negative. Continue Aricept, Lexapro, Trazodone. Encourage sleep hygiene. PT/OT/ST. Assessment & Plan (05/30/2024 10:53 AM PATIENT SAFETY MANAGER): Chronic, stable; cont rx aricept. Assessment & Plan (01/05/2024 1:05 PM CDT): Continue taking donepezil/Aricept 5 mg daily and escitalopram/Lexapro 10 mg daily. Continue working with [email or web address]. Sent referral for sleep medicine to have [...] months Assessment & Plan (07/28/2022 1:23 PM PATIENT SAFETY MANAGER): A(n) initial visit to establish care has [...] 05/02/2018 Assessment & Plan (05/30/2024 10:53 AM PATIENT SAFETY MANAGER): Stable, cont same. Cont rx breo ellipta, albuterol Assessment & Plan (08/19/2022 2:05 PM PATIENT SAFETY MANAGER): Symptoms have improved on the daily Breo Abbie Has not had to use his prn inhaler since starting the maintenance. Arthritis 05/02/2018 Anemia 04/12/2018 Assessment & Plan (06/02/2024 9:37 AM PATIENT SAFETY MANAGER): Labs pending for am. Prostate cancer 11/02/2017 Assessment & Plan (05/30/2024 10:52 AM PATIENT SAFETY MANAGER): Remote, not currently active Assessment & Plan (08/19/2022 2:04 PM PATIENT SAFETY MANAGER): Patient making follow up with his Urologist. Medication refills provided. Intrinsic eczema 09/02/2017 Cervical radiculopathy 06/19/2016 Degenerative lumbar spinal stenosis 05/20/2016 Primary osteoarthritis of left shoulder 03/17/20 16 Insomnia, unspecified 12/17/2015 Assessment & Plan (06/08/2024 6:19 PM PATIENT SAFETY MANAGER): Believe s/t OAB/Dementia. Continue Trazodone 50mg nightly given at 2000 nightly, condom cath, Flomax dosed at 1700 & Finasteride in am. If continues to have issues could consider Mybertiq. Continue fu with Urology for OAB/BPH. Assessment & Plan (06/02/2024 9:35 AM PATIENT SAFETY MANAGER): Believe s/t OAB/Dementia. Will trial Trazodone 50mg nightly given at 2000 nightly, condom cath, Flomax dosed at 1700 & Finasteride in am. If continues to have issues could consider Mybertiq. Gastroesophageal reflux disease 06/18/2011 Assessment & Plan (05/30/2024 10:52 AM PATIENT SAFETY MANAGER): Chronic, stable; cont rx omeprazole Hypercholesterolemia 12/06/2008 Assessment & Plan (05/30/2024 10:51 AM PATIENT SAFETY MANAGER): Current, stable; cont rx atorvastatin Osteoarthritis 12/06/2008 Assessment & Plan (05/30/2024 10:52 AM PATIENT SAFETY MANAGER): Chronic, stable/ cont tylenol as needed. Rosacea 12/06/2008 Current Oncology Plans No current plan information found. Past Plans No past plan information found. Radiation Treatments * No radiation treatments are documented for this patient in [facility]. Treatments may have been administered in another system. Lifetime Dose Tracking * Chemical Lifetime Dose Automatic Entry Manual Entr y Fluoro Time 0.754 minutes 0.754 minutes 0 minutes Air kerma at the reference point (Ka,r) 48.453 mGy 4 8.453 mGy 0 mGy Resolved Problems Problem Noted Date Diagnosed Date [...] 05/02/2018 Assessment & Plan (06/02/2024 9:34 AM PATIENT SAFETY MANAGER): Medication completed 05/29. 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
--- OUTSIDE RECORDS SUMMARY | 2024-08-07 02:22 | XMS_ITS | Clinical Summary ---
Author Organization [address] Address [address] [place] [address] Care Team Providers Care School Bus Attendant Name Role Phone Sohan Rojas MD Primary Care Provider Lamin Mcgraw MD Unavailable [phone] Manuel Chowdhury MD Unavailable Shahrzad SONI MD, Carlos M. Unavailable [phone] Anand Herrera MD Unavailable Bulmaro Parker RN Unavailable Allergies Active Allergy Reactions Criticality Noted Date [...] total) by mouth daily 30 tablet 4 06/08/20 25 Active finasteride (PROSCAR) 5 mg tablet Take 1 tablet (5 mg total) by mouth daily 30 tablet 4 06/08/20 25 Active fluticasone propionate (FLONASE) 50 [...] 06/08/2024 Assessment & Plan (06/08/2024 6:20 PM HISTORIOGRAPHY PROFESSOR): Per Urology. Started on Augmentin. Nursing to fu on cx in am. Continue Augmentin at this time until completion unless Ucx results obtained and not indicated or change needed. OAB (overactive bladder) 06/02/2024 Assessment & Plan (06/02/2024 9:38 AM HISTORIOGRAPHY PROFESSOR): Increased urination at night. UA negative for UTI. Condom cath added at nighttime with BPH meds dosed accordingly. Monitor for improvement or need to add Mybertiq. Abnormality of gait and mobility 01/05/2024 Assessment & Plan (06/08/2024 6:18 PM HISTORIOGRAPHY PROFESSOR): Greatly improved. DCP to [facility]. Assessment & Plan (05/30/2024 10:50 AM HISTORIOGRAPHY PROFESSOR): I endorse admission to retirement care. The patient is at risk of [...] for NPH. Patient interested in possibly getting [employer] shunt to help with mobility, falls, and cognitive decline. Referral to physical therapy to help with balance. 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 Per Neurology Ddx would be Parkinson's disease, Lewy body dementia, or Alzheimer's disease with extrapyramidal features. NPH willis negative. Continue Aricept, Lexapro, Trazodone. Encourage sleep hygiene. PT/OT/ST. Assessment & Plan (06/02/2024 9:36 AM HISTORIOGRAPHY PROFESSOR): Uncertain type of Dementia. Per Neurology Ddx would be Parkinson's disease, Lewy body dementia, or Alzheimer's disease with extrapyramidal features. NPH willis negative. Continue Aricept, Lexapro, Trazodone. Encourage sleep hygiene. PT/OT/ST. Assessment & Plan (05/30/2024 10:53 AM HISTORIOGRAPHY PROFESSOR): Chronic, stable; cont rx aricept. Assessment & Plan (01/05/2024 1:05 PM CDT): Continue taking donepezil/Aricept 5 mg daily and escitalopram/Lexapro 10 mg daily. Continue working with [employer] [facility]. Sent referral for sleep medicine to have [...] months Assessment & Plan (07/28/2022 1:23 PM HISTORIOGRAPHY PROFESSOR): A(n) initial visit to establish care has [...] 05/02/2018 Assessment & Plan (05/30/2024 10:53 AM HISTORIOGRAPHY PROFESSOR): Stable, cont same. Cont rx breo ellipta, albuterol Assessment & Plan (08/19/2022 2:05 PM HISTORIOGRAPHY PROFESSOR): Symptoms have improved on the daily Breo Ellipjamal Has not had to use his prn inhaler since starting the maintenance. Arthritis 05/02/2018 Anemia 04/12/2018 Assessment & Plan (06/02/2024 9:37 AM HISTORIOGRAPHY PROFESSOR): Labs pending for am. Prostate cancer 11/02/2017 Assessment & Plan (05/30/2024 10:52 AM HISTORIOGRAPHY PROFESSOR): Remote, not currently active Assessment & Plan (08/19/2022 2:04 PM HISTORIOGRAPHY PROFESSOR): Patient making follow up with his Urologist. Medication refills provided. Intrinsic eczema 09/02/2017 Cervical radiculopathy 06/19/2016 Degenerative lumbar spinal stenosis 05/20/2016 Primary osteoarthritis of left shoulder 03/17/20 16 Insomnia, unspecified 12/17/2015 Assessment & Plan (06/08/2024 6:19 PM HISTORIOGRAPHY PROFESSOR): Believe s/t OAB/Dementia. Continue Trazodone 50mg nightly given at 2000 nightly, condom cath, Flomax dosed at 1700 & Finasteride in am. If continues to have issues could consider Mybertiq. Continue fu with Urology for OAB/BPH. Assessment & Plan (06/02/2024 9:35 AM HISTORIOGRAPHY PROFESSOR): Believe s/t OAB/Dementia. Will trial Trazodone 50mg nightly given at 2000 nightly, condom cath, Flomax dosed at 1700 & Finasteride in am. If continues to have issues could consider Mybertiq. Gastroesophageal reflux disease 06/18/2011 Assessment & Plan (05/30/2024 10:52 AM HISTORIOGRAPHY PROFESSOR): Chronic, stable; cont rx omeprazole Hypercholesterolemia 12/06/2008 Assessment & Plan (05/30/2024 10:51 AM HISTORIOGRAPHY PROFESSOR): Current, stable; cont rx atorvastatin Osteoarthritis 12/06/2008 Assessment & Plan (05/30/2024 10:52 AM HISTORIOGRAPHY PROFESSOR): Chronic, stable/ cont tylenol as needed. Rosacea [...] 05/02/2018 Assessment & Plan (06/02/2024 9:34 AM HISTORIOGRAPHY PROFESSOR): Medication completed 05/29. 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 06/02/2024 Chronic pain 02/17/2013 06/02/2024 Bronchial asthma 12/06/2008 06/02/2024 Encounters Date Type Department Care Team Description 07/31/2024 Telephone [facility] Medical Group Primary Care at [address] [address] Sohan Rojas MD Additional Services Or Orders 06/27/2024 Telephone [facility] Home Care Services [address] [place] [address] Ora Chowdhury 06/19/2024 Telephone [facility] Medical Group Primary Care at [address] [phone] Sohan Rojas MD Medical Question/Miscellaneou s 06/13/2024 CLAUDIA IP Outreach [facility] Accountable Care Organization [address] [place] [address] An Dao MA 06/12/2024 Telephone [facility] Medical [facility] Post Acute Care [address] [address] [phone] Tammy Negro MA 06/09/2024 Documentation [facility] Medical [facility] Post Acute Care of [address] [address] Alison Benavides NP 06/08/2024 NH/SNF Visit [facility] Medical [facility] Post Acute Care [address] [address] Alison Benavides NP Moderate late onset Alzheimer's [...] Gastroesophageal reflux disease without esophagitis 06/08/2024 Telephone [facility] Medical [facility] Primary Care at [address] [address] Sohan Rojas MD CLAUDIA Questions 06/05/2024 2:15 PM HISTORIOGRAPHY PROFESSOR Office Visit [facility] Neurosurgery [address] Floor [address], [address] [place] [address] Anand Herrera MD NPH (normal pressure hydrocephalus) (HCC) 06/02/2024 Orders Only [facility] Medical [facility] Hospitalists [address] [place] [phone] Sudheer Mcdonough MD 06/01/2024 NH/SNF Visit [address] [address] Alison Benavides NP OAB (overactive bladder) (Primary Dx); Insomnia due to medical condition; 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 behavioral disturbance, psychotic disturbance, mood disturbance, or anxiety (HCC); Abnormality of gait and mobility; Anemia, unspecified type; Onychomycosis of toenail 05/30/2024 NH/SNF Visit [facility] Medical [facility] Post Acute Care [address] [address] Sudheer Mcdonough MD Abnormality of gait and [...] complication; Sleep disorder; Rosacea 05/21/2024 4:31 AM [facility] - 05/29/2024 3:51 PM [facility] Hospital [facility] [address] [place] [phone] Eddie Acosta DO Baig, Sophia, MD Fishman, Brian Michael, DO Abnormality of gait and mobility (Primary Dx); Anemia, unspecified type [D64.9]; Balance problem [R26.89]; Chronic pain syndrome [G89.4] Discharge Disposition: Discharge to SNF 05/21/2024 Orders Only [facility] Hospitalists [address] [place] [phone] Eddie Acosta DO 05/19/[address] [facility] Neurosurgery [address], [address] [place] [address] Anand Herrera MD NPH (normal pressure hydrocephalus) (HCC) (Primary Dx) 05/15/2024 9:39 AM CDT - 05/19/2024 4:15 PM CDT Hospital Encounter [address] [address] Anand Herrera MD Degenerative lumbar spinal stenosis Discharge Disposition: Discharge to [facility] 05/15/2024 8:30 AM CDT Lab [facility] [address] [facility] 1st [place] [address] NPH (normal pressure hydrocephalus) (HCC); Other cerebrovascular disease; Other hereditary cerebrovascular disease 05/15/2024 8:25 AM CDT - 05/15/2024 11:59 PM CDT Hospital Encounter [facility] Neuro Interventional Radiology [address] [place] [address] Anand Herrera MD NPH (normal pressure hydrocephalus) (HCC) Discharge Disposition: Discharge to home or self care from Last 3 Months Immunizations Name Administration Dates Next Due Influenza, [...] Pcv20 07/27/2022 Tdap 12/15/2015 ZOSTER Recombinant 04/08/2020 Surgical History Surgery Date Site/Laterality Comments FOOT SURGERY Foot Surgery - (Added by TW Conv) [place] TONSILLECTOMY PRIMARY/SECONDARY <AGE 12 Tonsillectomy - (Added by TW Conv) LUMBAR DISC SURGERY Spinal Diskectomy Lumbar - (Added by TW Conv) PROSTATE CANCER GENE 3 (PCA3) SPINE SURGERY [place] FLUORO GUIDED LUMBAR PUNCTURE 03/12/2023 Right LUMBAR PUNCTURE WO INJECTION , DIAGNOSTIC 05/15/2024 N/A Medical History Medical History Date Comments Personal history of other diseases of the respiratory system Personal history of asthma - (Added by TW Conv) Hyperlipidemia Sleep difficulties Heart disease GERD (gastroesophageal reflu x disease) Osteoporosis Insomnia Anxiety Arthritis Asthma Rheumatic fever Sleep apnea Diagnosed years ago - not sure if it's still pertinent Cancer (CMS/HCC) (HCC) 2018? Family History Medical History Relation Name Comments No Known Problems Daughter No Known Problems Father Alzheimer's disease Maternal Grandmother Kevin Gold Memory loss Maternal Grandmother Kevin Gold Arthritis Mother Jessica Johnston Hypertension Mother Jessica Johnston Stroke Mother Jessica Johnston Tuberculosis Mother Jsesica Johnston Family history of tuberculosis - (Added by TW Conv) Hypertension Other 1 Hypertension - (Added by TW Conv) Stroke Other 2 Stroke Syndrome - (Added by TW Conv) Alzheimer's disease Paternal Grandmother Marcelle Woodruff s Memory loss Paternal Grandmother Marcelle Johnston No Known Problems Son Relation Name Status Comments Daughter Alive Father Maternal Grandmother Kevin Gold Mother Jessica Johnston Other 1 Other 2 Paternal Grandmother Marcelle Johnston Son Alive Social History Tobacco Use Types Packs/Day Years Used Date Smoking Tobacco: Former Pipe Q uit: 11/28/1979 Smokeless Tobacco: Never Tobacco Cessation:Counseling Given: Not Answered Alcohol Use Standard Drinks/Week Comments Not Currently 0 (1 standard drink = 0.6 oz pur e alcohol) [facility] Utilities Answer Date Recorded In the past 12 months has e [email or web address], gas, oil, or water [employer] threatened to shut off services in your [...] often do you attend chur ch or rastafari services? Never 05/22/2024 Do you belong to any clubs o r organizations such as judaism groups, unions, fraternal or athletic groups, or [...] 01/26/2024 [facility] - Occupational Stress Questionnaire Answer Date [...] any time in the past 12 m [facility], were you homeless or living in a fpc (including now)? No 05/22/2024 Personal Safety Answer [...] on file Legal Sex Male 8:20 PM HISTORIOGRAPHY PROFESSOR Gender Identity Male 03/24/2021 7:53 PM CDT Sexual Orientation Straight 03/24/2021 7: 53 PM CDT Occupation Industry Job Start Date Job End Date retired Not on file Not on file Not on file Obstetrics History Last Filed Vital Signs Vital Sign Reading Time Taken Comments Blood Pressure 141/77 06/08/2024 6:13 PM HISTORIOGRAPHY PROFESSOR Pulse 71 06/05/2024 2:31 PM HISTORIOGRAPHY PROFESSOR Temperature 36.4 ??C (97.5 ??F) 05/30/2024 10:[address] Respiratory Rate 17 06/05/2024 2:31 PM HISTORIOGRAPHY PROFESSOR Oxygen Saturation 96% 06/05/2024 2:31 PM HISTORIOGRAPHY PROFESSOR Inhaled Oxygen Concentration - - Weight 73.5 kg (162 lb) 06/05/2024 2:31 PM HISTORIOGRAPHY PROFESSOR Height 180.3 cm (5' 11 ) 06/05/2024 2:31 PM HISTORIOGRAPHY PROFESSOR Body Mass Index 22.59 06/05/2024 2:31 PM HISTORIOGRAPHY PROFESSOR Plan of Treatment Health Maintenance Due Date Last Done Comments Hepatitis B Screening 1958 Well Visit 65+ 01/22/2024 01/21/2023, 08/2020, 06/03/2020, Additional history exists Covid-19 Vaccine ( season) 2024 05/21/2023, 05/21/2023, 05/08/2022, Additional history exists Influenza Vaccine (#1) 2024 , 05/08/2022, 06/05/2021, Additional history exists Depression Screening 01/25/2025 01/26/2024, 07/26/2023, 01/21/2023, Additional history exists Zoster Vaccine (2 of 2) 01/25/2025 04/08/2020 Post poned from 06/03/2020 (Insurance / Financial) Fall Risk Assessment 05/29/2025 05/29/2024, 09/01/2023, 07/26/2023, Additional history exists DTaP/Tdap/Td Vaccine (2 - Td or Tdap) 12/14/2025 12/15/2015 Pneumococcal vaccine 65+ Completed 07/27/2022, 03/2020 Procedures Procedure Name Priority Date/Time Associated Diagnosis Comments EGFR Routine 06/02/2024 9:36 AM HISTORIOGRAPHY PROFESSOR COMPREHENSIVE METABOLIC PANEL Routine 06/02/2024 9:36 AM HISTORIOGRAPHY PROFESSOR CBC WITHOUT DIFFERENTIAL Routine 06/02/2024 9:36 AM HISTORIOGRAPHY PROFESSOR URINALYSIS AND REFLEX TO MICROSCOPIC AND CULTURE Routine 06/02/2024 6:40 AM HISTORIOGRAPHY PROFESSOR EGFR Routine 05/25/2024 11:28 AM HISTORIOGRAPHY PROFESSOR DIFFERENTIAL AUTO Routine 05/25/2024 11:28 AM HISTORIOGRAPHY PROFESSOR CBC WITH AUTO DIFFERENTIAL Routine 05/25/2024 11:28 AM HISTORIOGRAPHY PROFESSOR BASIC METABOLIC PANEL Routine 05/25/2024 11:28 AM HISTORIOGRAPHY PROFESSOR EGFR Routine 05/24/2024 6:12 AM HISTORIOGRAPHY PROFESSOR DIFFERENTIAL AUTO Routine 05/24/2024 6:1 2 AM HISTORIOGRAPHY PROFESSOR CBC WITH AUTO DIFFERENTIAL Routine 05/24/2024 6:12 AM HISTORIOGRAPHY PROFESSOR BASIC METABOLIC PANEL Routine 05/24/2024 6:12 AM HISTORIOGRAPHY PROFESSOR EGFR Routine 05/23/2024 6:27 AM HISTORIOGRAPHY PROFESSOR DIFFERENTIAL AUTO Routine 05/23/2024 6:2 7 AM HISTORIOGRAPHY PROFESSOR CBC WITH AUTO DIFFERENTIAL Routine 05/23/2024 6:27 AM HISTORIOGRAPHY PROFESSOR BASIC METABOLIC PANEL Routine 05/23/2024 6:27 AM HISTORIOGRAPHY PROFESSOR EGFR Routine 05/22/2024 3:34 AM HISTORIOGRAPHY PROFESSOR DIFFERENTIAL AUTO Routine 05/22/2024 3:3 4 AM HISTORIOGRAPHY PROFESSOR BASIC METABOLIC PANEL Routine 05/22/2024 3:34 AM HISTORIOGRAPHY PROFESSOR CBC WITH AUTO DIFFERENTIAL Routine 05/22/2024 3:34 AM HISTORIOGRAPHY PROFESSOR EGFR Routine 05/21/2024 10:58 AM HISTORIOGRAPHY PROFESSOR COMPREHENSIVE METABOLIC PANEL Routine 05/21/2024 10:58 AM HISTORIOGRAPHY PROFESSOR EGFR Routine 05/19/2024 1:47 AM CDT BASIC [...] Months Results * eGFR (06/02/2024 9:36 AM HISTORIOGRAPHY PROFESSOR) eGFR 79 >=60 mL/min/1. 73 m2 ADDIE [...] Current interpretive data was last reviewed 2021. [facility], [facility] [place]., [address] Blood 06/02/2024 9:36 AM HISTORIOGRAPHY PROFESSOR 06/02/2024 9:47 AM HISTORIOGRAPHY PROFESSOR us Sudheer Mcdonough MD LAB BLOOD ORDERABLES Final R esult [address] Department [place] [address] * (ABNORMAL) CBC without differential (06/02/2024 9:36 AM HISTORIOGRAPHY PROFESSOR) WBC 5.4 3.8 - 9.9 K/cumm ADDIE Comment:[address] [address] Hgb 11.1(L) 13.0 - 17.5 g/dL CERYADIRA Comment:[address] [address] Hct 33.4(L) 38.9 - 50.3 % CERYADIRA Comment:[address] [address] Plt 235 150 - 400 K/cumm ADDIE Comment:[address] [address] MPV 9.3 9.1 - 12.3 fL CERYADIRA Comment:[address] [address] RBC 3.43(L) 4.30 - 5.80 M/cumm CERYADIRA MH Comment:[address] [address] MCV 97.4(H) 81.3 - 96.4 fL CERYADIRA MH Comment:[address] [address] MCH 32.4 27.1 - 33.3 pg CERNER MH Comment:[address], [address] MCHC 33.2 32.3 - 35.7 g/dL ADDIE YEE Comment:[address] [address] RDW CV 12.5 11.1 - 14.9 % ADDIE YEE Comment:[address] [address] RDW SD 43.9 35.7 - 48.1 fL ADDIE YEE Comment:[address], [address] NRBC abs 0.00 0.00 - 0.01 K/cumm ADDIE YEE Comment:[address] [address] Blood 06/02/2024 9:36 AM HISTORIOGRAPHY PROFESSOR 06/02/2024 9:47 AM HISTORIOGRAPHY PROFESSOR us Sudheer Mcdonough MD LAB BLOOD ORDERABLES Final R esult ADDIE [address] [facility] Department [place] [address] * (ABNORMAL) Comprehensive metabolic panel (06/02/2024 9:36 AM HISTORIOGRAPHY PROFESSOR) Sodium 138 135 - 145 mmol/L ADDIE Comment:[address], [address] Potassium, pl 4.1 3.3 - 4.9 mmol/L ADDIE Comment:[address] [address] Chloride 106 97 - 110 mmol/L ADDIE Comment:[address], [address] CO2 24 22 - 32 mmol/L ADDIE Comment:[address], [address] Anion gap 8 2 - 15 mmol/L ADDIE Comment:[address], [address] BUN 16 6 - 25 mg/dL ADDIE Comment:[address] [address] Creatinine 0.96 0.80 - 1.30 mg/dL ADDIE Comment:[address] [address] Glucose 98 70 - 199 mg/dL ADDIE YEE Comment: Interpretive Data Fasting glucose >/= 126 [...] Current interpretive data was last revised 2022. [facility], [address] [place]., [address] Calcium 9.3 8.5 - 10.3 mg/dL ADDIE Comment:[address] [address] Bilirubin, total 0.2 0.1 - 1.2 mg/dL ADDIE Comment:[address] [address] Protein, pl 5.7(L) 6.5 - 8.5 g/dL DADIE Comment:[address] [address] Albumin 3.7 3.5 - 5.0 g/dL ADDIE Comment:[address] [address] Alk phos 54 40 - 130 Units/L ADDIE Comment:[address] [address] ALT 23 7 - 55 Units/L ADDIE Comment:[address] [address] AST 19 10 - 50 Units/L [facility] Comment:[address] [address] Blood 06/02/2024 9:36 AM HISTORIOGRAPHY PROFESSOR 06/02/2024 9:47 AM HISTORIOGRAPHY PROFESSOR us Sudheer Mcdonough MD LAB BLOOD ORDERABLES Final R esult [facility] [address] [facility] Department [place] [address] * Urinalysis reflex to microscopic and culture Urine (06/02/2024 6:40 AM HISTORIOGRAPHY PROFESSOR) Color, ur Yellow Yellow ADDIE Comment:[address] [address] Clarity, ur Clear Clear ADDIE Comment:[address] [address] Specific gravity, ur 1.005 1.003 - 1.030 ADDIE Comment:[address] [address] pH, urine 5.5 ADDIE Comment: Interpretive Data Urine pH is affected by diet, medications, systemic acid-base disturbances, and renal tubular function. ??pH may affect urinary stone formation. ??For example, urine pH below 6.0 may help reduce the tendency for calcium phosphate stones and pH greater than 6.0 may reduce the tendency for uric acid stone formation. Source: [facility] [employer] Current Interpretive Data was last revised on 2017 [facility], [address] [place]., [address] Protein, ur ql Negative Negative ADDIE Comment:[address] [address] Glucose, ur ql Negative Negative ADDIE Comment:[address] [address] Ketones, ur Negative Negative ADDIE Comment:[address] [address] Bilirubin, ur Negative Negative ADDIE Comment:[address] [address] Blood, ur Negative Negative ADDIE Comment:[address] [address] Urobilinogen, ur <2.0 <2.0 mg/dL ADDIE Comment:[address] [address] Nitrite, ur Negative Negative ADDIE Comment:[address] [address] Leukocyte esterase, ur Negative Negative ADDEI Comment:[address] [address] UA reflex comment Reflex conditions for microscopic UA and culture not met. ADDIE Comment:[address] [address] Urine 06/02/2024 6:40 AM HISTORIOGRAPHY PROFESSOR 06/02/2024 7:12 AM HISTORIOGRAPHY PROFESSOR us Sudheer Mcdonough MD LAB MICROBIOLOGY - GENERAL O RDERABLES Final Result Performing Organization Address [facility] Co de Phone Number ADDIE [address] [facility] Department [place] [address] * eGFR (05/25/2024 11:28 AM HISTORIOGRAPHY PROFESSOR) eGFR 76 >=60 mL/min/1. 73 m2 Comment: [...] reviewed 2021. Blood 05/25/2024 11:2 8 AM HISTORIOGRAPHY PROFESSOR 05/25/2024 11:35 AM HISTORIOGRAPHY PROFESSOR us Marguerite Wolfe MD LAB BLOOD ORDERABLES Final Resul t Performing Organization Address City/[facility]/ZIP Co de Phone Number [facility] [address] Department [place] [address] * Differential, auto (05/25/2024 11:28 AM HISTORIOGRAPHY PROFESSOR) Neutrophil abs 3.8 1.5 - 6.5 K/cumm Imm gran abs 0.0 0.0 - 0.1 K/cumm [facility] Lymphocyte abs 0.8 0.8 - 3.3 K/cumm [facility] Monocyte abs 0.5 0.2 - 0.8 K/cumm [facility] Eosinophil abs 0.3 0.0 - 0.5 K/cumm [facility] Basophil abs 0.0 0.0 - 0.1 K/cumm [facility] Neutrophil pct 69.8 % [facility] Comment: Interpretive Data Percent cell count reference ranges are not reported, since discordance with absolute values may lead to misinterpretation of CBC data. Current Interpretive Data was last revised on 2017. Imm gran pct 0.4 % [facility] Comment: Interpretive Data Percent cell count reference ranges are not reported, since discordance with absolute values may lead to misinterpretation of CBC data. Current Interpretive Data was last revised on 2017. Lymphocyte pct 15.1 % [facility] Comment: Interpretive Data Percent cell count reference ranges are not reported, since discordance with absolute values may lead to misinterpretation of CBC data. Current Interpretive Data was last revised on 2017. Monocyte pct 9.1 % [facility] Comment: Interpretive Data Percent cell count reference ranges are not reported, since discordance with absolute values may lead to misinterpretation of CBC data. Current Interpretive Data was last revised on 2017. Eosinophil pct 4.9 % [facility] Comment: Interpretive Data Percent cell count reference ranges are not reported, since discordance with absolute values may lead to misinterpretation of CBC data. Current Interpretive Data was last revised on 2017. Basophil pct 0.7 % [facility] Comment: Interpretive Data Percent cell count reference ranges are not reported, since discordance with absolute values may lead to misinterpretation of CBC data. Current Interpretive Data was last revised on 2017. Blood 05/25/2024 11:2 8 AM HISTORIOGRAPHY PROFESSOR 05/25/2024 11:36 AM HISTORIOGRAPHY PROFESSOR Marguerite Wolfe MD LAB BLOOD ORDERABLES Final Resul t Performing Organization Address [facility] Co de Phone Number [facility] [address] Department of [employer] [place] [address] * (ABNORMAL) CBC with auto differential (05/25/2024 11:28 AM HISTORIOGRAPHY PROFESSOR) Pathologist [facility] [place] WBC 5.5 3.8 - 9.9 K/cumm Hgb 10.8(L) 13.0 - 17.5 g/dL [facility] Hct 32.1(L) 38.9 - 50.3 % [facility] Plt 203 150 - 400 K/cumm [facility] MPV 9.6 9.1 - 12.3 fL [facility] RBC 3.29(L) 4.30 - 5.80 M/cumm [facility] MCV 97.6(H) 81.3 - 96.4 fL [facility] MCH 32.8 27.1 - 33.3 pg [facility] MCHC 33.6 32.3 - 35.7 g/dL [facility] RDW CV 12.4 11.1 - 14.9 % [facility] RDW SD 44.0 35.7 - 48.1 fL [facility] NRBC abs 0.00 0.00 - 0.01 K/cumm [facility] Blood 05/25/2024 11:2 8 AM HISTORIOGRAPHY PROFESSOR 05/25/2024 11:36 AM HISTORIOGRAPHY PROFESSOR Marguerite Wolfe MD LAB BLOOD ORDERABLES Final Resul t Performing Organization Address City/[facility]/ZIP Co de Phone Number [facility] [address] Department of [employer] [place], [place] [id number] * Basic metabolic panel (05/25/2024 11:28 AM HISTORIOGRAPHY PROFESSOR) Sodium 135 135 - 145 mmol/L Potassium, pl 4.2 3.3 - 4.9 mmol/L [facility] Chloride 103 97 - 110 mmol/L [facility] CO2 23 22 - 32 mmol/L [facility] Anion gap 9 2 - 15 mmol/L [facility] BUN 19 6 - 25 mg/dL [facility] Creatinine 0.99 0.80 - 1.30 mg/dL [facility] Glucose 108 70 - 199 mg/dL [facility] Comment: Interpretive Data Fasting glucose >/= 126 [...] 2022. Calcium 8.8 8.5 - 10.3 mg/dL [facility] Blood 05/25/2024 11:2 8 AM HISTORIOGRAPHY PROFESSOR 05/25/2024 11:35 AM HISTORIOGRAPHY PROFESSOR us Marguerite Wolfe MD LAB BLOOD ORDERABLES Final Resul t [facility] [address] Department [place] [address] * eGFR (05/24/2024 6:12 AM HISTORIOGRAPHY PROFESSOR) eGFR 70 >=60 mL/min/1. 73 m2 Comment: [...] last reviewed 2021. Blood 05/24/2024 6:12 AM HISTORIOGRAPHY PROFESSOR 05/24/2024 6:32 AM HISTORIOGRAPHY PROFESSOR us Marguerite Wolfe MD LAB BLOOD ORDERABLES Final Resul t [facility] [address] Department [place] [address] * Differential, auto (05/24/2024 6:12 AM HISTORIOGRAPHY PROFESSOR) Neutrophil abs 2.3 1.5 - 6.5 K/cumm Imm gran abs 0.0 0.0 - 0.1 K/cumm [facility] Lymphocyte abs 1.2 0.8 - 3.3 K/cumm [facility] Monocyte abs 0.4 0.2 - 0.8 K/cumm [facility] Eosinophil abs 0.3 0.0 - 0.5 K/cumm [facility] Basophil abs 0.0 0.0 - 0.1 K/cumm [facility] Neutrophil pct 54.7 % [facility] Comment: Interpretive Data Percent cell count reference ranges are not reported, since discordance with absolute values may lead to misinterpretation of CBC data. Current Interpretive Data was last revised on 2017. Imm gran pct 0.2 % [facility] Comment: Interpretive Data Percent cell count reference ranges are not reported, since discordance with absolute values may lead to misinterpretation of CBC data. Current Interpretive Data was last revised on 2017. Lymphocyte pct 29.3 % [facility] Comment: Interpretive Data Percent cell count reference ranges are not reported, since discordance with absolute values may lead to misinterpretation of CBC data. Current Interpretive Data was last revised on 2017. Monocyte pct 8.6 % [facility] Comment: Interpretive Data Percent cell count reference ranges are not reported, since discordance with absolute values may lead to misinterpretation of CBC data. Current Interpretive Data was last revised on 2017. Eosinophil pct 6.5 % [facility] Comment: Interpretive Data Percent cell count reference ranges are not reported, since discordance with absolute values may lead to misinterpretation of CBC data. Current Interpretive Data was last revised on 2017. Basophil pct 0.7 % [facility] Comment: Interpretive Data Percent cell count reference ranges are not reported, since discordance with absolute values may lead to misinterpretation of CBC data. Current Interpretive Data was last revised on 2017. Blood 05/24/2024 6:12 AM HISTORIOGRAPHY PROFESSOR 05/24/2024 6:37 AM HISTORIOGRAPHY PROFESSOR us Marguerite Wolfe MD LAB BLOOD ORDERABLES Final Resul t [facility] [address] Department [place] [address] * (ABNORMAL) CBC with auto differential (05/24/2024 6:12 AM HISTORIOGRAPHY PROFESSOR) WBC 4.2 3.8 - 9.9 K/cumm Hgb 11.4(L) 13.0 - 17.5 g/dL [facility] Hct 32.6(L) 38.9 - 50.3 % [facility] Plt 209 150 - 400 K/cumm [facility] MPV 9.2 9.1 - 12.3 fL [facility] RBC 3.46(L) 4.30 - 5.80 M/cumm [facility] MCV 94.2 81.3 - 96.4 fL [facility] MCH 32.9 27.1 - 33.3 pg [facility] MCHC 35.0 32.3 - 35.7 g/dL [facility] RDW CV 12.0 11.1 - 14.9 % [facility] RDW SD 41.9 35.7 - 48.1 fL [facility] NRBC abs 0.00 0.00 - 0.01 K/cumm [facility] Blood 05/24/2024 6:12 AM HISTORIOGRAPHY PROFESSOR 05/24/2024 6:37 AM HISTORIOGRAPHY PROFESSOR Marguerite Wolfe MD LAB BLOOD ORDERABLES Final Resul t [facility] [address] Department [place] [address] * Basic metabolic panel (05/24/2024 6:12 AM HISTORIOGRAPHY PROFESSOR) Sodium 138 135 - 145 mmol/L Potassium, pl 3.8 3.3 - 4.9 mmol/L [facility] Chloride 102 97 - 110 mmol/L [facility] CO2 24 22 - 32 mmol/L [facility] Anion gap 12 2 - 15 mmol/L [facility] BUN 18 6 - 25 mg/dL [facility] Creatinine 1.06 0.80 - 1.30 mg/dL [facility] Glucose 111 70 - 199 mg/dL [facility] Comment: Interpretive Data Fasting glucose >/= 126 [...] 2022. Calcium 9.1 8.5 - 10.3 mg/dL [facility] Blood 05/24/2024 6:12 AM HISTORIOGRAPHY PROFESSOR 05/24/2024 6:32 AM HISTORIOGRAPHY PROFESSOR Marguerite Wolfe MD LAB BLOOD ORDERABLES Final Resul t Performing Organization Address [facility]/ZIP Co de Phone Number [facility] [address] Department [place] [address] * eGFR (05/23/2024 6:27 AM HISTORIOGRAPHY PROFESSOR) eGFR 78 >=60 mL/min/1. 73 m2 Comment: [...] last reviewed 2021. Blood 05/23/2024 6:27 AM HISTORIOGRAPHY PROFESSOR 05/23/2024 6:40 AM HISTORIOGRAPHY PROFESSOR Marguerite Wolfe MD LAB BLOOD ORDERABLES Final Resul t Performing Organization Address [facility]/ZIP Co de Phone Number [facility] [address] Department [place] [address] * Differential, auto (05/23/2024 6:27 AM HISTORIOGRAPHY PROFESSOR) Neutrophil abs 3.0 1.5 - 6.5 K/cumm Imm gran abs 0.0 0.0 - 0.1 K/cumm [facility] Lymphocyte abs 1.3 0.8 - 3.3 K/cumm [facility] Monocyte abs 0.5 0.2 - 0.8 K/cumm [facility] Eosinophil abs 0.2 0.0 - 0.5 K/cumm [facility] Basophil abs 0.0 0.0 - 0.1 K/cumm [facility] Neutrophil pct 59.7 % [facility] Comment: Interpretive Data Percent cell count reference ranges are not reported, since discordance with absolute values may lead to misinterpretation of CBC data. Current Interpretive Data was last revised on 2017. Imm gran pct 0.2 % [facility] Comment: Interpretive Data Percent cell count reference ranges are not reported, since discordance with absolute values may lead to misinterpretation of CBC data. Current Interpretive Data was last revised on 2017. Lymphocyte pct 25.6 % [facility] Comment: Interpretive Data Percent cell count reference ranges are not reported, since discordance with absolute values may lead to misinterpretation of CBC data. Current Interpretive Data was last revised on 2017. Monocyte pct 9.1 % [facility] Comment: Interpretive Data Percent cell count reference ranges are not reported, since discordance with absolute values may lead to misinterpretation of CBC data. Current Interpretive Data was last revised on 2017. Eosinophil pct 4.6 % [facility] Comment: Interpretive Data Percent cell count reference ranges are not reported, since discordance with absolute values may lead to misinterpretation of CBC data. Current Interpretive Data was last revised on 2017. Basophil pct 0.8 % [facility] Comment: Interpretive Data Percent cell count reference ranges are not reported, since discordance with absolute values may lead to misinterpretation of CBC data. Current Interpretive Data was last revised on 2017. Blood 05/23/2024 6:27 AM HISTORIOGRAPHY PROFESSOR 05/23/2024 6:39 AM HISTORIOGRAPHY PROFESSOR us Marguerite Wolfe MD LAB BLOOD ORDERABLES Final Resul t [facility] [address] Department [place] [address] * (ABNORMAL) CBC with auto differential (05/23/2024 6:27 AM HISTORIOGRAPHY PROFESSOR) [facility] WBC 5.0 3.8 - 9.9 K/cumm Hgb 11.2(L) 13.0 - 17.5 g/dL [facility] Hct 32.0(L) 38.9 - 50.3 % [facility] Plt 202 150 - 400 K/cumm [facility] MPV 9.4 9.1 - 12.3 fL [facility] RBC 3.42(L) 4.30 - 5.80 M/cumm [facility] MCV 93.6 81.3 - 96.4 fL [facility] MCH 32.7 27.1 - 33.3 pg [facility] MCHC 35.0 32.3 - 35.7 g/dL [facility] RDW CV 11.9 11.1 - 14.9 % [facility] RDW SD 41.1 35.7 - 48.1 fL [facility] NRBC abs 0.00 0.00 - 0.01 K/cumm [facility] Blood 05/23/2024 6:27 AM HISTORIOGRAPHY PROFESSOR 05/23/2024 6:39 AM HISTORIOGRAPHY PROFESSOR us Marguerite Wolfe MD LAB BLOOD ORDERABLES Final Resul t Performing Organization Address [facility]/ZIP Co de Phone Number [facility] [address] Department [place] [address] * Basic metabolic panel (05/23/2024 6:27 AM HISTORIOGRAPHY PROFESSOR) [facility] Sodium 135 135 - 145 mmol/L Potassium, pl 3.6 3.3 - 4.9 mmol/L [facility] Chloride 100 97 - 110 mmol/L [facility] CO2 23 22 - 32 mmol/L [facility] Anion gap 12 2 - 15 mmol/L [facility] BUN 22 6 - 25 mg/dL [facility] Creatinine 0.97 0.80 - 1.30 mg/dL [facility] Glucose 100 70 - 199 mg/dL [facility] Comment: Interpretive Data Fasting glucose >/= 126 [...] 2022. Calcium 8.9 8.5 - 10.3 mg/dL [facility] Blood 05/23/2024 6:27 AM HISTORIOGRAPHY PROFESSOR 05/23/2024 6:40 AM HISTORIOGRAPHY PROFESSOR us Marguerite Wolfe MD LAB BLOOD ORDERABLES Final Resul t [facility] [address] Department [place] [address] * eGFR (05/22/2024 3:34 AM HISTORIOGRAPHY PROFESSOR) eGFR 89 >=60 mL/min/1. 73 m2 Comment: [...] last reviewed 2021. Blood 05/22/2024 3:34 AM HISTORIOGRAPHY PROFESSOR 05/22/2024 5:12 AM HISTORIOGRAPHY PROFESSOR us Marguerite Wolfe MD LAB BLOOD ORDERABLES Final Resul t [facility] [address] Department [place] [address] * Differential, auto (05/22/2024 3:34 AM HISTORIOGRAPHY PROFESSOR) Neutrophil abs 4.1 1.5 - 6.5 K/cumm Imm gran abs 0.0 0.0 - 0.1 K/cumm [facility] Lymphocyte abs 1.0 0.8 - 3.3 K/cumm [facility] Monocyte abs 0.6 0.2 - 0.8 K/cumm [facility] Eosinophil abs 0.1 0.0 - 0.5 K/cumm [facility] Basophil abs 0.1 0.0 - 0.1 K/cumm [facility] Neutrophil pct 70.6 % [facility] Comment: Interpretive Data Percent cell count reference ranges are not reported, since discordance with absolute values may lead to misinterpretation of CBC data. Current Interpretive Data was last revised on 2017. Imm gran pct 0.2 % [facility] Comment: Interpretive Data Percent cell count reference ranges are not reported, since discordance with absolute values may lead to misinterpretation of CBC data. Current Interpretive Data was last revised on 2017. Lymphocyte pct 16.8 % [facility] Comment: Interpretive Data Percent cell count reference ranges are not reported, since discordance with absolute values may lead to misinterpretation of CBC data. Current Interpretive Data was last revised on 2017. Monocyte pct 9.4 % [facility] Comment: Interpretive Data Percent cell count reference ranges are not reported, since discordance with absolute values may lead to misinterpretation of CBC data. Current Interpretive Data was last revised on 2017. Eosinophil pct 2.1 % [facility] Comment: Interpretive Data Percent cell count reference ranges are not reported, since discordance with absolute values may lead to misinterpretation of CBC data. Current Interpretive Data was last revised on 2017. Basophil pct 0.9 % [facility] Comment: Interpretive Data Percent cell count reference ranges are not reported, since discordance with absolute values may lead to misinterpretation of CBC data. Current Interpretive Data was last revised on 2017. Blood 05/22/2024 3:34 AM HISTORIOGRAPHY PROFESSOR 05/22/2024 5:11 AM HISTORIOGRAPHY PROFESSOR us Eddie Acosta DO LAB BLOOD ORDERABLES F inal Result [facility] [address] Department [place] [address] * (ABNORMAL) CBC with auto differential (05/22/2024 3:34 AM HISTORIOGRAPHY PROFESSOR) WBC 5.8 3.8 - 9.9 K/cumm Hgb 11.6(L) 13.0 - 17.5 g/dL [facility] Hct 32.9(L) 38.9 - 50.3 % [facility] Plt 197 150 - 400 K/cumm [facility] MPV 9.9 9.1 - 12.3 fL [facility] RBC 3.50(L) 4.30 - 5.80 M/cumm [facility] MCV 94.0 81.3 - 96.4 fL [facility] MCH 33.1 27.1 - 33.3 pg [facility] MCHC 35.3 32.3 - 35.7 g/dL [facility] RDW CV 12.0 11.1 - 14.9 % [facility] RDW SD 41.3 35.7 - 48.1 fL [facility] NRBC abs 0.00 0.00 - 0.01 K/cumm [facility] Blood 05/22/2024 3:34 AM HISTORIOGRAPHY PROFESSOR 05/22/2024 5:11 AM HISTORIOGRAPHY PROFESSOR Eddie Acosta DO LAB BLOOD ORDERABLES F inal Result Performing Organization Address [facility]/ZIP Co de Phone Number [facility] [address] Department [place] [address] * (ABNORMAL) Basic metabolic panel (05/22/2024 3:34 AM HISTORIOGRAPHY PROFESSOR) Pathologist [facility] [place] Sodium 133(L) 135 - 145 mmol/L Potassium, pl 3.3 3.3 - 4.9 mmol/L [facility] Chloride 96(L) 97 - 110 mmol/L [facility] CO2 23 22 - 32 mmol/L [facility] Anion gap 14 2 - 15 mmol/L [facility] BUN 23 6 - 25 mg/dL [facility] Creatinine 0.77(L) 0.80 - 1.30 mg/dL [facility] Glucose 101 70 - 199 mg/dL [facility] Comment: Interpretive Data Fasting glucose >/= 126 [...] 2022. Calcium 9.1 8.5 - 10.3 mg/dL [facility] Blood 05/22/2024 3:34 AM HISTORIOGRAPHY PROFESSOR 05/22/2024 5:12 AM HISTORIOGRAPHY PROFESSOR Marguerite Wolfe MD LAB BLOOD ORDERABLES Final Resul t Performing Organization Address [facility]/ZIP Co de Phone Number [facility] [address] Department [place] [address] * eGFR (05/21/2024 10:58 AM HISTORIOGRAPHY PROFESSOR) eGFR 90 >=60 mL/min/1. 73 m2 Comment: [...] reviewed 2021. Blood 05/21/2024 10:5 8 AM HISTORIOGRAPHY PROFESSOR 05/21/2024 11:47 AM HISTORIOGRAPHY PROFESSOR us Eddie Acosta DO LAB BLOOD ORDERABLES F inal Result [facility] [address] Department [place] [address] * (ABNORMAL) Comprehensive metabolic panel (05/21/2024 10:58 AM HISTORIOGRAPHY PROFESSOR) Sodium 136 135 - 145 mmol/L Potassium, pl 4.6 3.3 - 4.9 mmol/L [facility] Chloride 98 97 - 110 mmol/L [facility] CO2 25 22 - 32 mmol/L [facility] Anion gap 13 2 - 15 mmol/L [facility] BUN 20 6 - 25 mg/dL [facility] Creatinine 0.75(L) 0.80 - 1.30 mg/dL [facility] Glucose 115 70 - 199 mg/dL [facility] Comment: Interpretive Data Fasting glucose >/= 126 [...] 2022. Calcium 9.4 8.5 - 10.3 mg/dL [facility] Bilirubin, total 0.6 0.1 - 1.2 mg/dL [facility] Protein, pl 6.9 6.5 - 8.5 g/dL [facility] Albumin 3.9 3.5 - 5.0 g/dL [facility] Alk phos 55 40 - 130 Units/L [facility] ALT 25 7 - 55 Units/L [facility] AST 33 10 - 50 Units/L [facility] Blood 05/21/2024 10:5 8 AM HISTORIOGRAPHY PROFESSOR 05/21/2024 11:47 AM HISTORIOGRAPHY PROFESSOR Eddie Acosta DO LAB BLOOD ORDERABLES F inal Result [facility] [address] Department [place] [address] * eGFR (05/19/2024 1:47 AM CDT) eGFR [...] CDT 05/19/2024 2:24 AM CDT Sienna Aguilera DIRECTOR FINANCIAL SERVICES LAB BLOOD ORDERA BLES Final Result [facility] Department [place] [address] * (ABNORMAL) CBC without differential (05/19/2024 1:47 AM CDT) Pathologist [facility] [place] WBC 9.1 3.8 - 9.9 K/cumm Hgb 12.5(L) 13.0 - 17.5 g/dL [facility] Hct 36.7(L) 38.9 - 50.3 % [facility] Plt 192 150 - 400 K/cumm [facility] MPV 10.0 9.1 - 12.3 fL [facility] RBC 3.89(L) 4.30 - 5.80 M/cumm [facility] MCV 94.3 81.3 - 96.4 fL [facility] MCH 32.1 27.1 - 33.3 pg [facility] MCHC 34.1 32.3 - 35.7 g/dL [facility] RDW CV 12.7 11.1 - 14.9 % [facility] RDW SD 43.8 35.7 - 48.1 fL [facility] NRBC abs 0.00 0.00 - 0.01 K/cumm [facility] Blood 05/19/2024 1:47 AM CDT 05/19/2024 2:24 AM CDT Sienna Aguilera NP LAB BLOOD ORDERA BLES Final Result [facility] Department [place] [address] * Basic metabolic panel (05/19/2024 1:47 AM CDT) Pathologist [facility] [place] Sodium 137 135 - 145 mmol/L Potassium, pl 3.8 3.3 - 4.9 mmol/L [facility] Chloride 102 97 - 110 mmol/L [facility] CO2 27 22 - 32 mmol/L [facility] Anion gap 8 2 - 15 mmol/L [facility] BUN 22 6 - 25 mg/dL [facility] Creatinine 0.90 0.80 - 1.30 mg/dL [facility] Glucose 109 70 - 199 mg/dL [facility] Comment: Interpretive Data Fasting glucose >/= 126 [...] 2022. Calcium 9.4 8.5 - 10.3 mg/dL [facility] Blood 05/19/2024 1:47 AM CDT 05/19/2024 2:24 AM CDT Sienna Aguilera NP LAB BLOOD ORDERA BLES Final Result [facility] Department [place] [address] * (ABNORMAL) eGFR (05/17/2024 8:55 PM CDT) eGFR 55(L) >=60 mL/min/1. 73 m2 Comment: [...] PM CDT 05/17/2024 9:56 PM CDT Sienna Sujatha Ale DIRECTOR FINANCIAL SERVICES LAB BLOOD ORDERA BLES Final Result Performing Organization Address [facility] de Phone Number [facility] Department [place] [address] * (ABNORMAL) CBC without differential (05/17/2024 8:55 PM CDT) [facility] WBC 8.9 3.8 - 9.9 K/cumm Hgb 12.0(L) 13.0 - 17.5 g/dL [facility] Hct 35.1(L) 38.9 - 50.3 % [facility] Plt 201 150 - 400 K/cumm [facility] MPV 10.3 9.1 - 12.3 fL [facility] RBC 3.67(L) 4.30 - 5.80 M/cumm [facility] MCV 95.6 81.3 - 96.4 fL [facility] MCH 32.7 27.1 - 33.3 pg [facility] MCHC 34.2 32.3 - 35.7 g/dL [facility] RDW CV 12.8 11.1 - 14.9 % [facility] RDW SD 44.8 35.7 - 48.1 fL [facility] NRBC abs 0.00 0.00 - 0.01 K/cumm [facility] Blood 05/17/2024 8:55 PM CDT 05/17/2024 9:56 PM CDT Sienna Aguilera DIRECTOR FINANCIAL SERVICES LAB BLOOD ORDERA BLES Final Result Performing Organization Address [facility] de Phone Number [facility] Department [place] [address] * Basic metabolic panel (05/17/2024 8:55 PM CDT) [facility] Sodium 139 135 - 145 mmol/L Potassium, pl 4.3 3.3 - 4.9 mmol/L [facility] Chloride 103 97 - 110 mmol/L [facility] CO2 26 22 - 32 mmol/L [facility] Anion gap 10 2 - 15 mmol/L [facility] BUN 24 6 - 25 mg/dL [facility] Creatinine 1.30 0.80 - 1.30 mg/dL [facility] Glucose 125 70 - 199 mg/dL [facility] Comment: Interpretive Data Fasting glucose >/= 126 [...] 2022. Calcium 9.5 8.5 - 10.3 mg/dL [facility] Blood 05/17/2024 8:55 PM CDT 05/17/2024 9:56 PM CDT Sienna Aguilera DIRECTOR FINANCIAL SERVICES LAB BLOOD ORDERA BLES Final Result [facility] Department [place] [address] * eGFR (05/16/2024 9:10 PM CDT) eGFR [...] CDT 05/16/2024 9:25 PM CDT Sienna Aguilera DIRECTOR FINANCIAL SERVICES LAB BLOOD ORDERA BLES Final Result [facility] Department [place] [address] * (ABNORMAL) CBC without differential (05/16/2024 9:10 PM CDT) WBC 6.7 3.8 - 9.9 K/cumm Hgb 11.9(L) 13.0 - 17.5 g/dL [facility] Hct 34.9(L) 38.9 - 50.3 % [facility] Plt 211 150 - 400 K/cumm [facility] MPV 9.7 9.1 - 12.3 fL [facility] RBC 3.66(L) 4.30 - 5.80 M/cumm [facility] MCV 95.4 81.3 - 96.4 fL [facility] MCH 32.5 27.1 - 33.3 pg [facility] MCHC 34.1 32.3 - 35.7 g/dL [facility] RDW CV 12.8 11.1 - 14.9 % [facility] RDW SD 44.4 35.7 - 48.1 fL [facility] NRBC abs 0.00 0.00 - 0.01 K/cumm [facility] Blood 05/16/2024 9:10 PM CDT 05/16/2024 9:25 PM CDT Sienna Aguilera DIRECTOR FINANCIAL SERVICES LAB BLOOD ORDERA BLES Final Result Performing Organization Address City/[facility]/ZIP Co de Phone Number [facility] Department [place] [address] * Basic metabolic panel (05/16/2024 9:10 PM CDT) [facility] Sodium 140 135 - 145 mmol/L Potassium, pl 3.7 3.3 - 4.9 mmol/L [facility] Chloride 104 97 - 110 mmol/L [facility] CO2 26 22 - 32 mmol/L [facility] Anion gap 10 2 - 15 mmol/L [facility] BUN 25 6 - 25 mg/dL [facility] Creatinine 1.04 0.80 - 1.30 mg/dL [facility] Glucose 121 70 - 199 mg/dL [facility] Comment: Interpretive Data Fasting glucose >/= 126 [...] 2022. Calcium 9.4 8.5 - 10.3 mg/dL [facility] Blood 05/16/2024 9:10 PM CDT 05/16/2024 9:25 PM CDT Sienna Aguilera NP LAB BLOOD ORDERA BLES Final Result Performing Organization Address [facility] Co de Phone Number [facility] [facility] Department [place] [address] * Urinalysis reflex to microscopic and culture Urine, bladder (05/16/2024 10:07 AM CDT) Color, ur Straw Yellow Clarity, ur Clear Clear [facility] Specific gravity, ur 1.015 1.003 - 1.030 [facility] pH, urine 7.0 [facility] Comment: Interpretive Data ? Urine pH is affected by diet, medications, systemic acid-base disturbances, and renal tubular function. ??pH may affect urinary stone formation. ??For example, urine pH below 6.0 may help reduce the tendency for calcium phosphate stones and pH greater than 6.0 may reduce the tendency for uric acid stone formation. Source: [facility] [employer] Current Interpretive Data was last revised on 2017 Protein, ur ql Negative Negative [facility] Glucose, ur ql Negative Negative [facility] Ketones, ur Negative Negative [facility] Bilirubin, ur Negative Negative [facility] Blood, ur Negative Negative [facility] Urobilinogen, ur <2.0 <2.0 mg/dL [facility] Nitrite, ur Negative Negative [facility] Leukocyte esterase, ur Negative Negative [facility] UA reflex comment Reflex conditions for microscopic UA and culture not met. [facility] Urine, bladder 05/16/2024 10 :07 AM CDT 05/16/2024 10:33 AM CDT Sienna Aguilera NP LAB MICROBIOLOGY - GENERAL ORDERABLES Final Result [facility] Department [place] [address] * (ABNORMAL) eGFR (05/15/2024 9:10 PM CDT) [...] CDT 05/15/2024 10:04 PM CDT Sienna Aguilera DIRECTOR FINANCIAL SERVICES LAB BLOOD ORDERA BLES Final Result [facility] Department [place] [address] * (ABNORMAL) CBC without differential (05/15/2024 9:10 PM CDT) WBC 7.8 3.8 - 9.9 K/cumm Hgb 11.7(L) 13.0 - 17.5 g/dL [facility] Hct 35.0(L) 38.9 - 50.3 % [facility] Plt 220 150 - 400 K/cumm [facility] MPV 10.0 9.1 - 12.3 fL [facility] RBC 3.65(L) 4.30 - 5.80 M/cumm [facility] MCV 95.9 81.3 - 96.4 fL [facility] MCH 32.1 27.1 - 33.3 pg [facility] MCHC 33.4 32.3 - 35.7 g/dL [facility] RDW CV 12.7 11.1 - 14.9 % [facility] RDW SD 44.1 35.7 - 48.1 fL [facility] NRBC abs 0.00 0.00 - 0.01 K/cumm [facility] Blood 05/15/2024 9:10 PM CDT 05/15/2024 10:06 PM CDT us Sienna Aguilera DIRECTOR FINANCIAL SERVICES LAB BLOOD ORDERA BLES Final Result Performing Organization Address City/State/[facility] Co de Phone Number [facility] [place] [address] * Phosphorus (05/15/2024 9:10 PM CDT) Pathologist [facility] [place] Phosphorus, pl 2.8 2.3 - 4.5 mg/dL Blood 05/15/2024 9:10 PM CDT 05/15/2024 10:04 PM CDT us Sienna Aguilera DIRECTOR FINANCIAL SERVICES LAB BLOOD ORDERA BLES Final Result Performing Organization Address [facility] de Phone Number [facility] Department of [employer] [place] [address] * Magnesium (05/15/2024 9:10 PM CDT) [facility] Magnesium 2.2 1.4 - 2.5 mg/dL Blood 05/15/2024 9:10 PM CDT 05/15/2024 10:04 PM CDT Sienna Aguilera DIRECTOR FINANCIAL SERVICES LAB BLOOD ORDERA BLES Final Result Performing Organization Address City/[facility] de Phone Number [facility] [place] [address] * Comprehensive metabolic panel (05/15/2024 9:10 PM CDT) [facility] Sodium 142 135 - 145 mmol/L Potassium, pl 4.4 3.3 - 4.9 mmol/L [facility] Chloride 105 97 - 110 mmol/L [facility] CO2 28 22 - 32 mmol/L [facility] Anion gap 9 2 - 15 mmol/L [facility] BUN 20 6 - 25 mg/dL [facility] Creatinine 1.23 0.80 - 1.30 mg/dL [facility] Glucose 109 70 - 199 mg/dL [facility] Comment: Interpretive Data Fasting glucose >/= 126 [...] 2022. Calcium 9.6 8.5 - 10.3 mg/dL [facility] Bilirubin, total 0.6 0.1 - 1.2 mg/dL [facility] Protein, pl 6.8 6.5 - 8.5 g/dL [facility] Albumin 4.1 3.5 - 5.0 g/dL [facility] Alk phos 59 40 - 130 Units/L [facility] ALT 26 7 - 55 Units/L [facility] AST 23 10 - 50 Units/L [facility] Blood 05/15/2024 9:10 PM CDT 05/15/2024 10:04 PM CDT us Sienna Aguilera DIRECTOR FINANCIAL SERVICES LAB BLOOD ORDERA BLES Final Result [facility] Department [place] [address] * IR Lumbar Puncture, Diagnostic incl Fluoro [...] Negative Comment: Interpretive Data A cerebrospinal fluid P-Dsc337 to Abeta42 ratio > 0.028 has been shown in clinical studies to have a positive agreement of 90.9% and a negative agreement of 89.2% with amyloid PET (US Food and Drug Administration). An Abeta42 concentration > 2,500 pg/mL, even in the context of P-Mfq727 to Abeta42 ratio > 0.028, is not consistent with the presence of amyloid pathology. This test is not intended as a standalone test to diagnose Alzheimer? s disease and the results must be integrated into a comprehensive clinical evaluation. Failure to adhere to collection instructions in the Lab Test Catalog may yield falsely increased p-Buo528 / Abeta42 ratios. [place] Food and Drug Administration. FDA Application for CSF Elecsys test. ?? [cited 2022; Available from: https://www.accessdata.fda.gov/cdrh_docs/reviews/T217718.pdf Alzheimer's & dementia : the journal of [...] ?? [cited October 19, 2023]; Available from: https://biofinder.se/biofinder_cohorts/zlqbbxpkhnk-agtgueu-yfafocc/ Amy Giron, Heather Stout, Chevy E, Barbara [...] on 2023. p-Tau/Abeta42 0.0232 <=0.0280 Ratio ADDIE [facility] Comment: Interpretive Data A cerebrospinal fluid P-Nzi556 to Abeta42 ratio > 0.028 has been shown in clinical studies to have a positive agreement of 90.9% and a negative agreement of 89.2% with amyloid PET ([place] Food and Drug Administration). An Abeta42 concentration > 2,500 pg/mL, even in the context of P-Gfw739 to Abeta42 ratio > 0.028, is not consistent with the presence of amyloid pathology. This test is not intended as a standalone test to diagnose Alzheimer? s disease and the results must be integrated into a comprehensive clinical evaluation. Failure to adhere to collection instructions in the Lab Test Catalog may yield falsely increased p-Nyx049 / Abeta42 ratios. US Food and Drug Administration. FDA Application for CSF Elecsys test. ?? [cited 2022; Available from: https://www.accessdata.fda.gov/cdrh_docs/reviews/R560439.pdf Alzheimer's & dementia : the journal of the Alzheimer's Association 2018; 14(11): 1470-81. Bartolo PECK Jr., Cyrus DA, Rogelio Moreno, Leighton TAVAREZ, Daniella Hughes, Coleen MASSEY, et al. MICHAEL-AA Zoie??johanna NR, Diogenes B, Linsey Y, Declan BARRERA, Duane Y, Rajni K, et al. CSF tau phosphorylation occupancies at T217 and T205 represent improved biomarkers of amyloid and tau pathology in Alzheimer? s disease. Nature Aging 2022. Cognitively healthy elderly. ?? [cited October 19, 2023]; Available from: https://biofinder.se/biofinder_cohorts/ovlddydnfax-ejnkzst-qrfrraj/ Amy Giron, Heather Stout, Chevy E, Barbara [...] on 2023. Abeta42 792 >=514 pg/mL [facility] Comment: Interpretive Data The cerebrospinal fluid Abeta42 concentration alone should not be used to assess for the presence of amyloid pathology, as the P-Ztl564 to Abeta42 ratio is significantly more accurate in classifying individuals with and without amyloid pathology (Amy et al., 2018; Franca et al., 2018). ??A low Abeta42 concentration in the context of normal P-Grz994 and total tau may be consistent with Alzheimer-related pathological change (Bartolo et al., 2018). An Abeta42 concentration > 2,500 pg/mL, even in the context of P-Oyo460 to Abeta42 ratio > 0.023, is not [...] Elecsys test. ?? [cited 2022; Available from: https://www.accessdata.fda.gov/cdrh_docs/reviews/N594474.pdf Alzheimer's & dementia : the journal of [...] ?? [cited October 19, 2023]; Available from: https://biofinder.se/biofinder_cohorts/egfqanxcrza-bthncpo-jkcakyx/ Amy Giron, Heather Stout, Chevy E, Barbara [...] on 2023. Phospho-Tau(181P) 18.4 <=40.9 pg/mL ADD[facility] Comment: Interpretive Data The cerebrospinal fluid P-Ago385 concentration alone should not be used to assess for the presence of neurofibrillary tangle pathology, as studies have found that P- Wvv325 is more strongly associated with amyloid pathology than neurofibrillary tangle pathology (Zoie??johanna et al., 2022). A low Abeta42 concentration in the context of normal P-Teq447 and total tau may be consistent with [...] Elecsys test. ?? [cited 2022; Available from: https://www.accessdata.fda.gov/cdrh_docs/reviews/A393561.pdf Alzheimer's & dementia : the journal of the Alzheimer's Association 2018; 14(11): 1470-81. Bartolo PECK Jr., Cyrus DA, Rogelio K, Leighton TAVAREZ, Daniella B, Coleen MASSEY, et al. MICHAEL-AA Zoie??johanna NR, Diogenes B, Linsey Y, Declan BA, Duane Y, Rajni K, et al. CSF tau phosphorylation occupancies at T217 and T205 represent improved biomarkers of amyloid and tau pathology in Alzheimer? s disease. Nature Aging 2022. Cognitively healthy elderly. ?? [cited October 19, 2023]; Available from: https://biofinder.se/biofinder_cohorts/srhixdfnudx-cdfxyff-ttrxssg/ Amy Giron, Heather J, Chevy E, Barbara [...] on 2023. Total-TAU 216 <=431 pg/mL [facility] Comment: Interpretive data The cerebrospinal fluid total tau concentration alone should not be used to assess for the presence of neurofibrillary tangle or neurodegenerative pathology. A low Abeta42 concentration in the context of normal P-Kpw477 and total tau may be consistent with [...] Elecsys test. ?? [cited 2022; Available from: https://www.accessdata.fda.gov/cdrh_docs/reviews/M881271.pdf Alzheimer's & dementia : the journal of the Alzheimer's Association 2018; 14(11): 1470-81. Bartolo PECK Jr., Cyrus DA, Rogelio K, Leighton MC, Daniella B, Coleen MASSEY, et al. MICHAEL-AA Zoie??johanna NR, Diogenes B, Linsey Y, Declan BARRERA, Duane Y, Rajni K, et al. CSF tau phosphorylation occupancies at T217 and T205 represent improved biomarkers of amyloid and tau pathology in Alzheimer? s disease. Nature Aging 2022. Cognitively healthy elderly. ?? [cited October 19, 2023]; Available from: https://biofinder.se/biofinder_cohorts/xnnvoehgcdj-cogrgrw-ecvxzxa/ Amy Giron, Heather J, Chevy E, Barbara [...] MD LAB GENETIC TESTING Final R esult [facility] Department [place] [address] * XR chest 1 view (Portable) (05/15/2024 [...] * (ABNORMAL) eGFR (05/15/2024 11:05 AM CDT) eGFR 57(L) >=60 mL/min/1. 73 m2 Comment: [...] 05/15/2024 11:26 AM CDT us Sienna Aguilera NP LAB BLOOD ORDERA BLES Final Result [facility] Department [place] [address] * (ABNORMAL) CBC without differential (05/15/2024 11:05 AM CDT) Pathologist [facility] [place] WBC 6.9 3.8 - 9.9 K/cumm Hgb 12.0(L) 13.0 - 17.5 g/dL [facility] Hct 35.6(L) 38.9 - 50.3 % [facility] Plt 196 150 - 400 K/cumm [facility] MPV 10.0 9.1 - 12.3 fL [facility] RBC 3.73(L) 4.30 - 5.80 M/cumm [facility] MCV 95.4 81.3 - 96.4 fL [facility] MCH 32.2 27.1 - 33.3 pg [facility] MCHC 33.7 32.3 - 35.7 g/dL [facility] RDW CV 12.7 11.1 - 14.9 % [facility] RDW SD 44.1 35.7 - 48.1 fL [facility] NRBC abs 0.00 0.00 - 0.01 K/cumm [facility] Blood 05/15/2024 11:0 5 AM CDT 05/15/2024 11:26 AM CDT us Sienna Aguilera DIRECTOR FINANCIAL SERVICES LAB BLOOD ORDERA BLES Final Result [facility] Department [place] [address] * Type and screen (05/15/2024 11:05 AM CDT) Pathologist [facility] Jamia, indirect Negative ABO Rh A Positive [facility] Blood 05/15/2024 11:0 5 AM CDT 05/15/2024 11:32 AM CDT Narrative [facility] - 05/15/2024 12:21 PM CDT Has the patient had Daratumumab or Isatuximab in the past 6 months?->Unknown us Sienna Aguilera DIRECTOR FINANCIAL SERVICES LAB BLOOD BANK T EST ORDERABLES Final Result Performing Organization Address City/[facility]/ZIP Co de Phone Number [facility] of [employer] [place] [address] * Phosphorus (05/15/2024 11:05 AM CDT) [facility] Phosphorus, pl 3.3 2.3 - 4.5 mg/dL Blood 05/15/2024 11:0 5 AM CDT 05/15/2024 11:26 AM CDT Sienna Aguilera DIRECTOR FINANCIAL SERVICES LAB BLOOD ORDERA BLES Final Result Performing Organization Address [facility] de Phone Number [facility] [place] [address] * Magnesium (05/15/2024 11:05 AM CDT) [facility] Magnesium 2.2 1.4 - 2.5 mg/dL Blood 05/15/2024 11:0 5 AM CDT 05/15/2024 11:26 AM CDT Sienna Aguilera DIRECTOR FINANCIAL SERVICES LAB BLOOD ORDERA BLES Final Result Performing Organization Address City/[facility] Co de Phone Number [facility] [place] [address] * Comprehensive metabolic panel (05/15/2024 11:05 AM CDT) [facility] Sodium 138 135 - 145 mmol/L Potassium, pl 4.0 3.3 - 4.9 mmol/L [facility] Chloride 103 97 - 110 mmol/L [facility] CO2 28 22 - 32 mmol/L [facility] Anion gap 7 2 - 15 mmol/L [facility] BUN 20 6 - 25 mg/dL [facility] Creatinine 1.25 0.80 - 1.30 mg/dL [facility] Glucose 97 70 - 199 mg/dL [facility] Comment: Interpretive Data Fasting glucose >/= 126 [...] 2022. Calcium 9.8 8.5 - 10.3 mg/dL [facility] Bilirubin, total 0.6 0.1 - 1.2 mg/dL [facility] Protein, pl 7.1 6.5 - 8.5 g/dL [facility] Albumin 4.4 3.5 - 5.0 g/dL [facility] Alk phos 63 40 - 130 Units/L [facility] ALT 24 7 - 55 Units/L [facility] AST 22 10 - 50 Units/L [facility] Blood 05/15/2024 11:0 5 AM CDT 05/15/2024 11:26 AM CDT Sienna Aguilera DIRECTOR FINANCIAL SERVICES LAB BLOOD ORDERA BLES Final Result [facility] Department [place] [address] * ECG 12 lead (05/15/2024 10:09 AM CDT) Pathologist [facility] Ventricular Rate EKG/Min 66 BPM [facility] Atrial Rate 66 BPM [facility] [place]-Interval (MSEC) 166 ms [facility] QRS-Interval (MSEC) 98 ms [facility] QT-Interval (MSEC) 440 ms [facility] QTc 461 ms [facility] R [place] 196 degrees [facility] T [place] 154 degrees [facility] Diagnosis Suspect arm lead reversal, interpretation assumes no reversal Normal sinus rhythm Right superior axis deviation Abnormal ECG When compared with ECG of 31-JAN-2019 10:42, QRS axis Shifted left T wave inversion now evident in Lateral leads Confirmed by SARAH LYONS M.D ([id number]) on 05/15/2024 6:07:23 PM [facility] 05/15/2024 10:0 9 AM CDT 05/15/2024 6:07 PM CDT us Sienna Aguilrea NP ECG ORDERABLES Final Result [facility] * Differential, auto (05/15/2024 8:31 AM CDT) Neutrophil abs 4.6 1.5 - 6.5 K/cumm Imm gran abs 0.0 0.0 - 0.1 K/cumm [facility] Lymphocyte abs 0.8 0.8 - 3.3 K/cumm [facility] Monocyte abs 0.5 0.2 - 0.8 K/cumm [facility] Eosinophil abs 0.3 0.0 - 0.5 K/cumm [facility] Basophil abs 0.1 0.0 - 0.1 K/cumm [facility] Neutrophil pct 73.6 % [facility] Comment: Interpretive Data Percent cell count reference ranges are not reported, since discordance with absolute values may lead to misinterpretation of CBC data. Current Interpretive Data was last revised on 2017. Imm gran pct 0.3 % [facility] Comment: Interpretive Data Percent cell count reference ranges are not reported, since discordance with absolute values may lead to misinterpretation of CBC data. Current Interpretive Data was last revised on 2017. Lymphocyte pct 12.7 % [facility] Comment: Interpretive Data Percent cell count reference ranges are not reported, since discordance with absolute values may lead to misinterpretation of CBC data. Current Interpretive Data was last revised on 2017. Monocyte pct 7.6 % [facility] Comment: Interpretive Data Percent cell count reference ranges are not reported, since discordance with absolute values may lead to misinterpretation of CBC data. Current Interpretive Data was last revised on 2017. Eosinophil pct 4.7 % [facility] Comment: Interpretive Data Percent cell count reference ranges are not reported, since discordance with absolute values may lead to misinterpretation of CBC data. Current Interpretive Data was last revised on 2017. Basophil pct 1.1 % [facility] Comment: Interpretive Data Percent cell count reference ranges are not reported, since discordance with absolute values may lead to misinterpretation of CBC data. Current Interpretive Data was last revised on 2017. Blood 05/15/2024 8:31 AM CDT 05/15/2024 9:14 AM CDT us Anand Herrera MD LAB BLOOD ORDERABLES Final Result [facility] Department [place] [address] * (ABNORMAL) CBC with auto differential (05/15/2024 8:31 AM CDT) WBC 6.2 3.8 - 9.9 K/cumm Hgb 11.1(L) 13.0 - 17.5 g/dL [facility] Hct 33.0(L) 38.9 - 50.3 % [facility] Plt 195 150 - 400 K/cumm [facility] MPV 9.8 9.1 - 12.3 fL [facility] RBC 3.44(L) 4.30 - 5.80 M/cumm [facility] MCV 95.9 81.3 - 96.4 fL [facility] MCH 32.3 27.1 - 33.3 pg [facility] MCHC 33.6 32.3 - 35.7 g/dL [facility] RDW CV 12.7 11.1 - 14.9 % [facility] RDW SD 44.4 35.7 - 48.1 fL [facility] NRBC abs 0.00 0.00 - 0.01 K/cumm [facility] Blood 05/15/2024 8:31 AM CDT 05/15/2024 9:14 AM CDT us Anand Herrera MD LAB BLOOD ORDERABLES Final Result Performing Organization Address [facility] de Phone Number [facility] [employer] [place] [address] * (ABNORMAL) aPTT (05/15/2024 8:31 AM CDT) aPTT 26(L) 28 - 38 sec Comment: Interpretive Data Heparin therapeutic range: 66.0 - 100.0 seconds. Range based on correlation with therapeutic heparin activity range of 0.3 - 0.7 Units/mL. Current interpretive data was last revised on 2023. Blood 05/15/2024 8:31 AM CDT 05/15/2024 9:14 AM CDT Result [facility] Anand Herrera MD LAB BLOOD ORDERABLES Final Result Performing Organization Address [facility] de Phone Number [facility] [employer] [place] [address] * Protime-INR (05/15/2024 8:31 AM CDT) PT 12.3 9.7 - 13.0 sec INR 1.14 0.90 - 1.20 [facility] Comment: Interpretive data Oral anticoagulant therapeutic ranges: Venous thromboembolism prophylaxis or treatment: 2.0-3.0 CARDIOLOGY Standard range: 2.0-3.0 High-intensity range: 2.5-3.5 Refer to indication-specific guidelines for appropriate target ranges for prosthetic heart valve replacement. Current interpretive data was last revised on 2019. Blood 05/15/2024 8:31 AM CDT 05/15/2024 9:14 AM CDT Anand Herrera MD LAB BLOOD ORDERABLES Final Result Performing Organization Address [facility] Co de Phone Number [facility] [employer] [place] [address] from Last 3 Months Insurance [employer] MED[employer] HMO [employer] MED[employer] HMO Advance Directives For more information, please contact: [phone] Documents on File Type Date Recorded Patient Armor Reconnaissance Vehicle Driver Expl anation ADVANCE DIRECTIVE 05/31/2024 1:03 AM YANELI R OF CLASSICS TEACHER-MEDICAL ADVANCE DIRECTIVE 05/22/2024 7:21 PM POWER OF CLASSICS TEACHER-MEDICAL ADVANCE DIRECTIVE 07/24/2021 9:18 PM POWER OF CLASSICS TEACHER Power of Back Up Scan Coordinator 07/23/2021 8:03 AM Power of Back Up Scan Coordinator * Full Code (Latest Code Status on File) Date Activated Date Inactivated Comments 05/21/2024 5:48 AM 05/29/2024 7:56 PM * Full Code Date Activated Date Inactivated Comments 05/15/2024 9:52 AM 05/19/2024 8:31 PM Care Teams School Bus Attendant Relationship Specialty Start Date End Date Sohan Rojas MD [address] [place] [address] PCP - General Family Medicine 07/10/22 Lamin Mcgraw MD [address] [place] [address] Consulting Physician Urology 07/27/22 Manuel Chowdhury MD [address] [place] [address] Consulting Physician Neurology 01/21/23 [place] [address] [facility] [address] [place] [address] Consulting Physician Neurology 01/21/23 Anand Herrera MD [address] [place] [address] Consulting Physician Neurosurgery 01/26/24 Bulmaro Parker RN [address] [facility] [address] [place] [address] Shoer 08/01/24
--- OUTSIDE RECORDS SUMMARY | 2024-08-07 02:22 | XMS_ITS | Encounter Summary ---
Author Organization [facility] Address [address] [place] [address] Phone Care Team Providers Care Database Marketing Manager Name Role Phone Sohan Rojas MD Primary Care Provider [phone] Lamin Mcgraw MD Unavailable [phone] Manuel Chowdhury MD Unavailable Shahrzad SONI MD, Sea Juarez Unavailable [phone] Anand Herrera MD Unavailable [phone] Reason for Visit * Consultation (Routine) - Authorized Specialty Diagnoses / Procedures Referred By Contac t Referred To Contact Neurosurgery Diagnoses NPH (normal pressure hydrocephalus) ([facility]) Anand Herrera MD [address] [place] [address] Phone: tel: fax: Anand Herrera MD [address] [place] [address] Phone: tel: fax: Referral ID Status Reason Start Date Expiration Date Visits Requested Visits Authorized [id number] Authorized Specialty Services Required 05/19/2024 06/18/2025 3 3 Encounter Details Date Type Department Care Team (Late st Contact Info) Description 06/05/2024 2:15 PM CHILLING HOOD OPERATOR Office Visit [facility] Neurosurgery [address] [facility] [address], [address] [place] [address] Anand Herrera MD [address] [place] [address] NPH (normal pressure hydrocephalus) (HCC) Social History Tobacco Use Types Packs/Day Years Used Date Smoking Tobacco: Former Pipe Q uit: 11/28/1979 Smokeless Tobacco: Never Alcohol Use Standard Drinks/Week Comments Not Currently 0 (1 standard drink = 0.6 oz pur e alcohol) [facility] Utilities Answer Date Recorded In the past 12 months has th e electric, gas, oil, or water [email or web address] threatened to shut off services in your [...] often do you attend chur ch or restoration services? Never 05/22/2024 Do you belong to any clubs o r organizations such as mosque groups, unions, fraternal or athletic groups, or [...] staff should administer the PHQ-9) 0 01/26/2024 [facility] - Occupational [...] any time in the past 12 m [facility], were you homeless or living in a fci (including now)? No 05/22/2024 Personal Safety Answer [...] on file Legal Sex Male 8:20 PM CHILLING HOOD OPERATOR Gender Identity Male 03/24/2021 7:53 PM CDT Sexual Orientation Straight 03/24/2021 7: 53 PM CDT Occupation Industry Job Start Date Job End Date retired Not on file Not on file Not on file documented as of this encounter Last Filed Vital Signs Vital Sign Reading Time Taken Comments Blood Pressure 114/65 06/05/2024 2:31 PM CHILLING HOOD OPERATOR Pulse 71 06/05/2024 2:31 PM CHILLING HOOD OPERATOR Temperature - - Respiratory Rate 17 06/05/2024 2:31 PM CHILLING HOOD OPERATOR Oxygen Saturation 96% 06/05/2024 2:31 PM CHILLING HOOD OPERATOR Inhaled Oxygen Concentration - - Weight 73.5 kg (162 lb) 06/05/2024 2:31 PM CHILLING HOOD OPERATOR Height 180.3 cm (5' 11 ) 06/05/2024 2:31 PM CHILLING HOOD OPERATOR Body Mass Index 22.59 06/05/2024 2:31 PM CHILLING HOOD OPERATOR documented in this encounter Progress Notes * Anand Herrera MD - 06/05/2024 2:15 PM CST Patient Name: Gulshan Johnston Medical Record Number (MRN): [id number] Date of (): 1940 Encounter Date: 06/05/2024 PRIMARY CARE PROVIDER: Sohan Rojas MD REFERRING PROVIDER: Anand Herrera MD [address] [facility] [address] [place] [address] HISTORY We had the great pleasure of seeing Gulshan Johnston in our neurosurgery clinic for a follow up after lumbar drain trial. His ROEMO was score decreased after lumbar drain placement. He has been in rehab but overall he is not doing well. VITAL SIGNS There were no vitals filed for this visit. PHYSICAL EXAM: On the exam, He is awake, alert and oriented x3. Pupils are equal and reactive to light. Extraocular movements are intact. Cranial nerve exam is intact. No pronator drift. He moves all extremities with equal strength. Sensation intact to light touch. Gait was deferred. REVIEW OF IMAGING: No new imaging REVIEW OF LABORATORIES: None ASSESSMENT AND PLAN: In summary, this is a 84 y.o. male that failed LD trial and is therefore not a candidate for a shunt. I would like him to follow up with Neurosurgery regarding possible vascular dementia. Supportive care for his cognitive and mobility impairments. PRN clinic visit with an FABIOLA. Thank you for sending your patient to me and allowing me to contribute to his care. If you have anyquestions or concerns about him, please do not hesitate to contact me. Sincerely, Anand Herrera MD LING HOOD OPERATOR documented in this encounter Plan of Treatment Not on file documented as of this encounter Visit Diagnoses Diagnosis NPH (normal pressure hydrocephalus) (HCC) Idiopathic normal pressure hydrocephalus (INPH) documented in this encounter Orders Outpatient Referral Count Last Ordered Date Fir st Ordered Date AMB REFERRAL TO NEUROSURGERY 1 06/05/2024 documented in this encounter Care Teams Database Marketing Manager Relationship Specialty Start Date End Date Sohan Rojas MD [address] [facility] [address] [place] [address] PCP - General Family Medicine 07/10/22 Lamin Mcgraw MD [address] [place] [address] Consulting Physician Urology 07/27/22 Manuel Chowdhury MD [address] [place] [address] Consulting Physician Neurology 01/21/23 [place] [address] [address] [place] [address] Consulting Physician Neurology 01/21/23 Anand Herrera MD [address] [place] [address] Consulting Physician Neurosurgery 01/26/24 documented as of this encounter
--- OUTSIDE RECORDS SUMMARY | 2024-08-07 02:22 | XMS_ITS | Encounter Summary ---
Author Organization [facility] Healthcare Address [address] [place] [address] Care Team Providers Care Chemist Pharmaceutical Name Role Phone Sohan Rojas MD Primary Care Provider Lamin Mcgraw MD Unavailable [phone] Manuel Chowdhury MD Unavailable Shahrzad SONI MD, Carlos M. Unavailable Anand Herrera MD Unavailable [phone] Reason for Visit * Reason Onset Date Comments Medical Question/Miscellaneous 06/19/2024 Encounter Details Date Type Department Care Team (Late st Contact Info) Description 06/19/2024 Telephone [facility] Medical Group Primary Care at [address] [address] Sohan Rojas MD [address] [place] [address] [address] [place] [address] Medical Question/Miscellaneous Social History Tobacco Use Types Packs/Day Years Used Date Smoking Tobacco: Former Pipe Q uit: 11/28/1979 Smokeless Tobacco: Never Alcohol Use Standard Drinks/Week Comments Not Currently 0 (1 standard drink = 0.6 oz pur e alcohol) [facility] Utilities Answer Date Recorded In the past 12 months has [employer] electric, gas, oil, or water company threatened [...] often do you attend chur ch or yarsani services? Never 05/22/2024 Do you belong to any clubs o r organizations such as baptist groups, unions, fraternal or athletic groups, or [...] staff should administer the PHQ-9) 0 01/26/2024 [facility] - Occupational Stress Questionnaire Answer Date [...] any time in the past 12 m [facility], were you homeless or living in [...] on file Legal Sex Male 8:20 PM HOSPITAL MEDICAL ASSISTANT Gender Identity Male 03/24/2021 7:53 PM CDT Sexual Orientation Straight 03/24/2021 7: 53 PM CDT Occupation Industry Job Start Date Job End Date retired Not on file Not on file Not on file documented as of this encounter Miscellaneous Notes * Telephone Encounter - Meagan Keys - 06/19/2024 11:50 AM CST Medical Question/Miscellaneous Caller???s Concern: called to say that she need referral for ENT but then was called back by the office she was supposed to take pt and they are out of network so she will call back once she finds a new ENT Does message need to be routed? No ITAL MEDICAL ASSISTANT documented in this encounter Plan of Treatment Not on file documented as of this encounter Visit Diagnoses Not on filedocumented in this encounter Care Teams Chemist Pharmaceutical Relationship Specialty Start Date End Date Sohan Rojas MD [address] [place] [address] PCP - General Family Medicine 07/10/22 Lamin Mcgraw MD [address] [place] [address] Consulting Physician Urology 07/27/22 Manuel Chowdhury MD [address] [place] [address] Consulting Physician Neurology 01/21/23 [place] [address] [address] [facility] [address] [place] [address] Consulting Physician Neurology 01/21/23 Anand Herrera MD [address] [place] [address] Consulting Physician Neurosurgery 01/26/24 documented as of this encounter
--- OUTSIDE RECORDS SUMMARY | 2024-08-07 02:22 | XMS_ITS | Continuity of Care Document ---
Author Organization [facility] Address [id number] [place] [address] [address] [place] [address] Phone Care Team Providers Care Electronic Video Games Servicer Name Role Phone Parth Bishop Unavailable Unavailable Procedures Procedure Date Office/outpatient Visit, Est Office/outpatient Visit, Est No Script Eye Exam & Treatment Optic Nerve Head Eval No Script Fundus Photography W/ Report Refraction Advance Directives Directive Yes / No Effective Date File Name No Information Encounters Encounter Description Practice Location Reason(s) For Visit Diagnoses Date Provider Providers Copied on Encounter Office/outpat ient Visit, [facility], [address] [place] [address] [address], [place], [place], [id number], [place] tel:[phone] [facility] No Information 1-201 0 Dario Alba. [address] [facility] , [address], [place], [place], [facility], . tel:[phone] Office/outpat ient Visit, [facility], [address] [place] [address] [address], [place], [place], [id number], [place] tel:[phone] [facility] No Information 0-200 9 Krishnasamy Laith. [address] [facility] [address], [place], [facility], [place]. tel:[phone] [facility], [address] [place] [address] [address], [place], [place], [id number], tel:[phone] [facility] No Information 0 1200 9 Dario Alba. [address] [place] [address] , [address], [place], [address], . tel:[phone] Referring Provider: Parth Reynolds [address] [place] [address] [address], [place], [address]. tel:[phone] Family History Family Member Type Diagnosis Age At Onset No Information Payers Payer name Insurance type Covered republican ID Authoriza tion(s) Medicare [facility] [id number] [facility] [id number] Social History Type Description Quantity Date Captured [...]
--- OUTSIDE RECORDS SUMMARY | 2024-08-07 02:23 | XMS_ITS | Encounter Summary ---
Author Organization [facility] Healthcare Address [address] [place] [address] Care Team Providers Care General [address] Foreman Name Role Phone Sohan Rojas MD Primary Care Provider Lamin Mcgraw MD Unavailable [phone] Manuel Chowdhury MD Unavailable Shahrzad SONI MD, Carlos M. Unavailable [phone] Anand Herrera MD Unavailable Encounter Details Date Type Department Care Team (Late st Contact Info) Description 05/30/2024 NH/SNF Visit [facility] Post Acute Care [address] [id number] Sudheer Mcdonough MD [address] [place] [id number] Abnormality of gait and mobility (Primary Dx); [...] intermittent asthma without complication; Sleep disorder; Rosacea Social History Tobacco Use Types Packs/Day Years Used Date Smoking Tobacco: Former Pipe Q uit: 11/28/1979 Smokeless Tobacco: Never Alcohol Use Standard Drinks/Week Comments Not Currently 0 (1 standard drink = 0.6 oz pur e alcohol) [facility] Utilities Answer Date Recorded In the [...] often do you attend chur ch or protestant services? Never 05/22/2024 Do you belong to any clubs o r organizations such as nondenominational groups, unions, fraternal or athletic groups, or [...] any time in the [facility], were you homeless or living in a ch[facility] (including now)? No 05/22/2024 Personal Safety Answer [...] on file Legal Sex Male 8:20 PM ART DEALER Gender Identity Male 03/24/2021 7:53 PM CDT Sexual Orientation Straight 03/24/2021 7: 53 PM CDT Occupation Industry Job Start Date Job End Date retired Not on file Not on file Not on file documented as of this encounter Last Filed Vital Signs Vital Sign Reading Time Taken Comments Blood Pressure 118/51 05/30/2024 10:46 AM ART DEALER Pulse 69 05/30/2024 10:46 AM ART DEALER Temperature 36.4 ??C (97.5 ??F) 05/30/2024 10:[address] Respiratory Rate 18 05/30/2024 10:46 AM ART DEALER Oxygen Saturation 100% 05/30/2024 10:46 AM ART DEALER Inhaled Oxygen Concentration - - Weight 71 kg (156 lb 8.4 oz) 05/30/2024 10:46 AM ART DEALER Height 180.3 cm (5' 10.98 ) 05/30/2024 10:46 AM ART DEALER Body Mass Index 21.84 05/30/2024 10:46 AM ART DEALER documented in this encounter Progress Notes * Sudheer Mcdonough MD - 05/30/2024 10:46 AM CST Images from the original note were not included. [facility] History and Physical Date of service: 05/30/2024 Primary care provider: Sohan Rojas MD SUBJECTIVE HPI: This is a very pleasant man stated age who arrives with his daughter to [facility] fpc facility after 8 days at [facility]. Prior to that he had had a 24 hours stay at a fpc rehab and before that an inpatient admission at [facility]. He has known Alzheimer's disease but has recently had a progressive decline from living in the community to confusion with unstable gait and incontinence x2. He can not provide history but his daughter Dominga is at the bedsideand she is very helpful to endorses history. During his inpatient care he was evaluated for normal pressure hydrocephalus and a lumbar puncture was obtained. This did not help his symptoms. He was also seen by Neurology. He is also known to have a history of hyperlipidemia, prostate cancer, generalized anxiety, GERD, and per his daughter many years ago he was diagnosed with obstructive sleep apnea. She notes that since that time he has lost weight and he breathes better. He has not used CPAP. During the night he was complaining of urgency and frequency. A condom catheter was placed by the nursing staff. Daughter Dominga was called to the bedside for 1 on 1 setting. Before his hospitalization she had determined that he had reached a point of needing a memory care setting. She had been exploring options. She is now encouraged to work with our social workers to find a safe point of discharge after he has completed his skilled care. She has asked that he be full code. A summary of his hospital course is as follows, (he denies uncontrolled pain or constipation), Reason for Hospitalization per Dr. Wolfe: Majority history is obtained from patient's chart review recent hospitalizations at [facility] ER documentation etc. 84-year-old male history of anxiety asthma GERD dyslipidemia obstructive sleep apnea. He is a direct admit from [facility] for chief complaint of unspecified altered mental status. Briefly patient was admitted at [facility] on 05/15/2024 chief complaint to rule out NPH. He presented with 2 years of memory and thinking problems cognitive in nature he was on memantinecompleted difficulty of mobility. Worsening shuffling gait He presented for lumbar drain trial for workup of normal pressure hydrocephalus He underwent a lumbar drain placed with neuro IR 05/15 Alzheimer CSF labs negative 05/18 lumbar drain DC site closed with stitches no CSF leak noted after procedure per notes Of note outside facility he underwent an LP unclear done therapeutic or diagnostic On my visit patient is awake alert for the most part but confused at times impulsive trying to get out of bed cooling off diaper When asked stable to tell me his name where he was unable to tell me the year tolerating his daughter's name and tells me he presents to the hospital after recent fall. Denies any acute distress headache changes in vision speech nausea vomiting chest pain shortness of breath upper lower extremity strength is intact. Denies any recent diarrhea cough congestion or pain during urination. Again he isn't confused at times but is able to answer questions Daughter present at bedside states prior to [facility] admission for lumbar drain and NPH eval patient was living alone he does have a history of underlying dementia but is independent athome she lives nearby and is able to help out with meals groceries and checking in on him closely he does not drive but hates up his own food toiletries himself and is able to care for himself for the most part. She says during recent hospital course symptoms of altered mental status and gait decline and instability worsened and he was DC to rehab and presented back to hospital now for ongoing symptoms Hospital Course: Gulshan remains medically stable for discharge since 05/25. [facility] has a bed available today. Sitter was discontinued 05/27 without issue thus far. He remains alert and cooperative during the day. I have been following peripherally. Currently awaiting insurance authorization DVT Prophylaxis: fall risk, compression wraps ordered. Code status: full code Advance Care Planning Advance Care Planning Conversation Pertinent diagnoses: dementia The patient and/or family consented to a voluntary Advance Care Planning conversation. Summary of the conversation: full code Outcome of the conversation and documents completed (select all that apply): POLST/TPOPP completed I spent 5 minutes providing separately identifiable ACP services with the patient and/or surrogate decision maker in a voluntary, in-person conversation discussing the patient's wishes and goals as detailed in the above note. Sudheer Mcdonough MD A/P: Diagnoses and all orders for this visit: Abnormality of gait and mobility (Primary) Assessment & Plan: I endorse admission to fpc care. The patient is at risk of [...] progress to a safer level of care. Hypercholesterolemia Assessment & Plan: Current, stable; cont rx atorvastatin Gastroesophageal reflux disease without esophagitis Assessment & Plan: Chronic, stable; cont rx omeprazole Prostate cancer (HCC) Assessment & Plan: Remote, not currently active Osteoarthritis, unspecified osteoarthritis type, unspecified site Assessment & Plan: Chronic, stable/ cont tylenol as needed. 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[facility]) 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 behavioral disturbance, psychotic disturbance, mood disturbance, or anxiety ([facility]) Assessment & Plan: Chronic, stable; cont rx aricept. NPH (normal pressure hydrocephalus) ([facility]) Degenerative lumbar spinal stenosis Cervical radiculopathy Altered mental status, unspecified altered mental status type Mild intermittent asthma without complication Assessment & Plan: Stable, cont same. Cont rx breo ellipta, albuterol Sleep disorder Rosacea Past Medical History: Diagnosis Date Anxiety Arthritis Asthma Cancer (CMS/HCC) ([facility]) 2018? GERD (gastroesophageal reflux disease) Heart disease Hyperlipidemia Insomnia Osteoporosis Personal history of other diseases of the respiratory system Personal history of asthma - (Added by Conv) Rheumatic fever Sleep apnea Diagnosed years ago - not sure if it's still pertinent Sleep difficulties Past Surgical History: Procedure Laterality Date FL FLUORO GUIDED LUMBAR PUNCTURE Right 03/12/2023 FOOT SURGERY Foot Surgery - (Added by Conv) LUMBAR DISC SURGERY Spinal Diskectomy Lumbar - (Added by Conv) LUMBAR PUNCTURE WO INJECTION, DIAGNOSTIC N/A 05/15/2024 [place] TONSILLECTOMY PRIMARY/SECONDARY <AGE 14 Tonsillectomy - (Added by Conv) PROSTATE CANCER GENE 3 (PCA3) SPINE SURGERY (Not in a hospital admission) Allergies Allergen Reactions Memantine Delusions Increased confusion Other Sneezing Seasonal allergies Social History Tobacco Use Smoking status: Former Types: Pipe Quit date: 11/28/1979 Years since quittin.5 Smokeless tobacco: Never Substance and Sexual Activity Drug use: Never Sexual activity: Not Currently control/protection: None Alcohol Use: Not At Risk (01/31/2024) AUDIT-C Frequency of Alcohol Consumption: Never Average Number of Drinks: Patient does not drink Frequency of Binge Drinking: Never Family History Problem Relation Age of Onset Hypertension Other Hypertension - (Added by TW Conv) Stroke Other Stroke Syndrome - (Added by Conv) Tuberculosis Mother Family history of tuberculosis - (Added by TW Conv) Arthritis Mother Hypertension Mother Stroke Mother No Known Problems Father No Known Problems Daughter No Known Problems Son Alzheimer's disease Maternal Grandmother Memory loss Maternal Grandmother Alzheimer's disease Paternal Grandmother Memory loss Paternal Grandmother Prior to Admission medications Medication Sig Start Date End Date Taking? Authorizing Provider acetaminophen (TYLENOL) 325 mg tablet Take 2 tablets (650 mg total) by mouth every 4 (four) hours as needed for pain 05/19/24 Merline Rapp NP albuterol HFA (PROVENTIL HFA,VENTOLIN HFA,PROAIR HFA) 90 mcg/actuation inhaler Inhale 2 puffs every4 (four) hours as needed for wheezing 07/27/22 Sohan Rojas MD atorvastatin (LIPITOR) 20 mg tablet TAKE 1 TABLET BY MOUTH EVERY DAY 02/28/24 Sohan Rojas MD Breo Ellipta 100-25 mcg/dose diskus inhaler INHALE 1 PUFF BY MOUTH EVERY DAY 04/28/23 Sohan Rojas MD cholecalciferol, vitamin D3, 1,000 unit tablet,chewable Take 1 tablet/chew tab by mouth daily Yolanda Melo MD cranberry extract 200 mg capsule Take 2 capsules by mouth 3 (three) times a day 03/10/[address] (VOLTAREN) 75 mg EC tablet Take 1 tablet (75 mg total) by mouth 2 (two) times a day HOLD THIS MEDICATION UNTIL YOU FOLLOW UP WITH NEUROSURGERY 05/19/24 Merline Rapp NP donepeziL (ARICEPT) 10 mg tablet Take 1 tablet (10 mg total) by mouth nightly 07/26/23 07/25/24 Sohan Rojas MD escitalopram (Lexapro) 10 mg tablet Take 1 tablet (10 mg total) by mouth daily 07/30/23 07/29/24 Huber Mg MD finasteride (PROSCAR) 5 mg tablet Take 1 tablet (5 mg total) by mouth daily 05/20/24 05/20/25 Merline Rapp NP fluticasone propionate (FLONASE) 50 mcg/actuation nasal spray Administer 2 sprays into each nostrildaily 04/15/22 Lamin Ricci MD ibuprofen (ADVIL,MOTRIN) 800 mg tablet Take 1 tablet (800 mg total) by mouth every 6 (six) hours HOLD THIS MEDICATION UNTIL YOU FOLLOW UP WITH NEUROSURGERY 05/19/24 Merline Rapp NP multivitamin with minerals tablet Take 1 tablet by mouth daily Yolanda Melo MD omega 3-fga-cjp-fish oil 360-1,200 mg capsule,delayed release(DR/EC) Take 1 capsule by mouth daily HOLD THIS MEDICATION UNTIL YOU FOLLOW UP WITH NEUROSURGERY 05/19/24 Merline Rapp NP omeprazole (PriLOSEC) 20 mg capsule TAKE 1 CAPSULE BY MOUTH EVERY DAY 03/02/24 Sohan Rojas MD tamsulosin (FLOMAX) 0.4 mg extended release capsule Take 1 capsule (0.4 mg total) by mouth daily Yolanda Melo MD terbinafine (LamiSIL) 250 mg tablet Take 1 tablet (250 mg total) by mouth daily 05/01/24 Yolanda Melo MD traZODone (DESYREL) 50 mg tablet Take 0.5 tablets (25 mg total) by mouth nightly 05/29/24 06/28/24 Javid Riddle, vitamin b complex (Vitamins B Complex) tablet Take 1 tablet by mouth daily Yolanda Melo MD vitamin E (AQUASOL E) 1,000 unit capsule Take 5 capsules (5,000 Units total) by mouth daily HOLD THIS MEDICATION UNTIL YOU FOLLOW UP WITH NEUROSURGERY 05/19/24 Merline Rapp NP OBJECTIVE Vital Signs: Vitals BP 118/51 Pulse 69 Temp 36.4 ??C (97.5 ??F) Resp 18 Ht 180.3 cm (5' 10.98 ) Wt 71 kg (156 lb 8.4 oz) SpO2 100% BMI 21.84 kg/m?? Review of Systems: SEE HPI Physical Exam: Physical Exam Vitals reviewed. Exam conducted with a financial cost analyst present. Constitutional: General: He is not in acute distress. Appearance: He is not ill-appearing, toxic-appearing or diaphoretic. HENT: Head: Normocephalic and atraumatic. Nose: Nose normal. No congestion or rhinorrhea. Eyes: General: Right eye: No discharge. Left eye: No discharge. Extraocular Movements: Extraocular movements intact. Cardiovascular: Rate and Rhythm: Normal rate and regular rhythm. Heart sounds: Normal heart sounds. No murmur heard. No friction rub. Pulmonary: Effort: Pulmonary effort is normal. No respiratory distress. Breath sounds: Normal breath sounds. No stridor. No wheezing. Abdominal: General: There is no distension. Palpations: Abdomen is soft. There is no mass. Tenderness: There is no abdominal tenderness. There is no guarding. Skin: General: Skin is dry. Coloration: Skin is not jaundiced or pale. Findings: No erythema. Neurological: Mental Status: He is alert. He is disoriented. Motor: Weakness present. Lab/Radiology/Diagnostic Review: No results found for this or any previous visit (from the past 72 hours). IR Lumbar Puncture, Diagnostic incl Fluoro Guidance Result Date: 05/15/2024 Narrative: EXAMINATION: Diagnostic fluoroscopically guided lumbar puncture HISTORY: [...] wished to proceed. A time-out was performed priorto the procedure. Attending physician: Dr. Beck Hart MD, PHD was present for the entire procedure. The L2-L3 level was localized with fluoroscopy. The ribs were counted and this level confirmed. The skin overlying this level was sterilely prepped, draped, and infiltrated with 1% lidocaine for local anesthesia. Under intermittent fluoroscopic guidance, a 15 gauge 3.5 inch Quincke spinal needle wa s inserted into the thecal sac at this level. Clear CSF was identified. A total of 6.5 ml of CSF was removed and placed into 2 specimen tubes. Neurosurgery subsequently placed a lumbar drain. Please see neurosurgery note for relevant details. The patient was then transferred to the nursing area forfurther observation and 1 hour of bedrest. OPENING PRESSURE: Not performed. Impression: Successful lumbar puncture under fluoroscopic guidance for lumbar drain trial with neurosurgery. Dictated by: Andrew Duque D.O. The radiology attending physician has personally reviewed this study, and had reviewed and/or edited this written report and agrees with it. Electronically signed by: Beck Hart MD, PHD XR chest 1 view (Portable) Result Date: 05/15/2024 Narrative: EXAMINATION: 1 view chest radiograph Impression: Lungs are well-expanded and clear. Heart size is normal. Atherosclerotic changes of theaorta. Electronically signed by: Geoff Stevens M.D. Current Medications:reconciled Electronically signed by Sudheer Mcdonough MD 05/30/2024 10:54 AM Voice recognition software [employer] was used dictate and transcribe this document. Regional Wildlife Agent variances may occur. Despite proofreading, typographical errors may occur. DEALER documented in this encounter Miscellaneous Notes * Assessment & Plan Note - Sudheer Mcdonough MD - 05/30/2024 10:53 AM ART DEALER Associated Problem(s): Asthma Stable, cont same. Cont rx breo ellipta, albuterol DEALER * Assessment & Plan Note - Sudheer Mcdonough MD - 05/30/2024 10:53 AM ART DEALER Associated Problem(s): 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 behavioral disturbance, psychotic disturbance, mood disturbance, or anxiety (HCC) Chronic, stable; cont rx aricept. DEALER * Assessment & Plan Note - Sudheer Mcdonough MD - 05/30/2024 10:52 AM ART DEALER Associated Problem(s): Osteoarthritis Chronic, stable/ cont tylenol as needed. DEALER * Assessment & Plan Note - Sudheer Mcdonough MD - 05/30/2024 10:52 AM ART DEALER Associated Problem(s): Prostate cancer (HCC) Remote, not currently active DEALER * Assessment & Plan Note - Sudheer Mcdonough MD - 05/30/2024 10:52 AM ART DEALER Associated Problem(s): Gastroesophageal reflux disease Chronic, stable; cont rx omeprazole DEALER * Assessment & Plan Note - Sudheer Mcdonough MD - 05/30/2024 10:51 AM ART DEALER Associated Problem(s): Hypercholesterolemia Current, stable; cont rx atorvastatin DEALER * Assessment & Plan Note - Sudheer Mcdonough MD - 05/30/2024 10:50 AM ART DEALER Associated Problem(s): Abnormality of gait and mobility I endorse admission to fpc care. The patient is at risk of [...] progress to a safer level of care. DEALER documented in this encounter Plan of Treatment Not on file documented as of this encounter Visit Diagnoses Diagnosis Abnormality of gait and mobility- Primary Hypercholesterolemia Pure hypercholesterolemia Altered mental status, unspecified altered mental status type 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 behavioral disturbance, psychotic disturbance, mood disturbance, or anxiety (HCC) 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HCC) NPH (normal pressure hydrocephalus) (HCC) Idiopathic normal pressure hydrocephalus ([facility]) Gastroesophageal reflux disease without esophagitis Esophageal reflux Prostate cancer (HCC) Malignant neoplasm of prostate Osteoarthritis, unspecified osteoarthritis type, unspecified site Degenerative lumbar spinal stenosis Spinal stenosis of lumbar region Cervical radiculopathy Brachial neuritis or radiculitis nos Mild intermittent asthma without complication Sleep disorder Unspecified sleep disturbance Rosacea documented in this encounter Care Teams General Road Foreman Relationship Specialty Start Date End Date Sohan Rojas MD [address] [place] [id number] PCP - General Family Medicine 07/10/22 Lamin Mcgraw MD [address] [place] [address] Consulting Physician Urology 07/27/22 Manuel Chowdhury MD [address] [place] [address] Consulting Physician Neurology 01/21/23 [place] [address] [facility] [address] [place] [address] Consulting Physician Neurology 01/21/23 Anand Herrera MD [address] [facility] [address] [place] [address] Consulting Physician Neurosurgery 01/26/24 documented as of this encounter
--- OUTSIDE RECORDS SUMMARY | 2024-08-07 02:23 | XMS_ITS | Encounter Summary ---
Author Organization [facility] Healthcare Address [address] [place] [address] Care Team Providers Care Supervisor Scrap Preparation Name Role Phone Sohan Rojas MD Primary Care Provider Lamin Mcgraw MD Unavailable [phone] Manuel Chowdhury MD Unavailable Shahrzad SONI MD, Carlos M. Unavailable [phone] Anand Herrera MD Unavailable [phone] Encounter Details Date Type Department Care Team (Late st Contact Info) Description 06/02/2024 Orders Only [facility] Medical Group [facility] [address] [place] [phone] Sudheer Mcdonough MD [address] [place] [id number] Social History Tobacco Use Types Packs/Day Years Used Date Smoking Tobacco: Former Pipe Q uit: 11/28/1979 Smokeless Tobacco: Never Alcohol Use Standard Drinks/Week Comments Not Currently 0 (1 standard drink = 0.6 oz pur e alcohol) [facility] Utilities Answer Date Recorded In the [...] often do you attend chur ch or yarsanism services? Never 05/22/2024 Do you belong to any clubs o r organizations such as jehovah's witness groups, unions, fraternal or athletic groups, or [...] staff should administer the PHQ-9) 0 01/26/2024 [facility] [...] any time in the past 12 m [facility], were you homeless or living in a group home (including now)? 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 73 m2 ADDIE Comment: Interpretive Data Reference Interval Normal ?>/= [...] Current interpretive data was last reviewed 2021. [facility], [address] [place]., [address] Blood 06/02/2024 9:36 AM SPIKE MACHINE OPERATOR 06/02/2024 9:47 AM SPIKE MACHINE OPERATOR us Sudheer Mcdonough MD LAB BLOOD ORDERABLES Final R esult [facility] [address] [facility] Department [place] [address] * (ABNORMAL) Comprehensive metabolic panel (06/02/2024 9:36 AM SPIKE MACHINE OPERATOR) [facility] Sodium 138 135 - 145 mmol/L ADDIE Comment:[facility], [address] [place]., [address] Potassium, pl 4.1 3.3 - 4.9 mmol/L ADDIE Comment:[address] [address] Chloride 106 97 - 110 mmol/L [facility] Comment:[address] [address] CO2 24 22 - 32 mmol/L [facility] Comment:[address] [address] Anion gap 8 2 - 15 mmol/L [facility] Comment:[address] [address] BUN 16 6 - 25 mg/dL [facility] Comment:[address] [address] Creatinine 0.96 0.80 - 1.30 mg/dL [facility] Comment:[address] [address] Glucose 98 70 - 199 mg/dL [facility] Comment: Interpretive Data Fasting glucose >/= 126 [...] Current interpretive data was last revised 2022. [facility], [address] [place]., [address] Calcium 9.3 8.5 - 10.3 mg/dL [facility] Comment:[address] [address] Bilirubin, total 0.2 0.1 - 1.2 mg/dL [facility] Comment:[address] [address] Protein, pl 5.7(L) 6.5 - 8.5 g/dL [facility] Comment:[address] [address] Albumin 3.7 3.5 - 5.0 g/dL [facility] Comment:[address] [address] Alk phos 54 40 - 130 Units/L [facility] Comment:[address] [address] ALT 23 7 - 55 Units/L [facility] Comment:[address] [address] AST 19 10 - 50 Units/L [facility] Comment:[address] [address] Blood 06/02/2024 9:36 AM SPIKE MACHINE OPERATOR 06/02/2024 9:47 AM SPIKE MACHINE OPERATOR us Sudheer Mcdonough MD LAB BLOOD ORDERABLES Final R esult [facility] [address] [facility] Department [place] [address] * (ABNORMAL) CBC without differential (06/02/2024 9:36 AM SPIKE MACHINE OPERATOR) WBC 5.4 3.8 - 9.9 K/cumm ADDIE Comment:[address] [address] Hgb 11.1(L) 13.0 - 17.5 g/dL [facility] Comment:[address], [address] Hct 33.4(L) 38.9 - 50.3 % [facility] Comment:[address] [address] Plt 235 150 - 400 K/cumm [facility] Comment:[address] [address] MPV 9.3 9.1 - 12.3 fL [facility] Comment:[address] [address] RBC 3.43(L) 4.30 - 5.80 M/cumm [facility] Comment:[address] [address] MCV 97.4(H) 81.3 - 96.4 fL [facility] Comment:[address], [address] MCH 32.4 27.1 - 33.3 pg [facility] Comment:[address], [address] MCHC 33.2 32.3 - 35.7 g/dL ADDIE YEE Comment:[address] [address] RDW CV 12.5 11.1 - 14.9 % [facility] YEE Comment:[address] [address] RDW SD 43.9 35.7 - 48.1 fL [facility] YEE Comment:[address] [address] NRBC abs 0.00 0.00 - 0.01 K/cumm [facility] YEE Comment:[address] [address] Blood 06/02/2024 9:36 AM SPIKE MACHINE OPERATOR 06/02/2024 9:47 AM SPIKE MACHINE OPERATOR us Sudheer Mcdonough MD LAB BLOOD ORDERABLES Final R esult [facility] [address] Department [place] [address] * Urinalysis reflex to microscopic and culture Urine (06/02/2024 6:40 AM SPIKE MACHINE OPERATOR) Color, ur Yellow Yellow [facility]IE YEE Comment:[address] [address] Clarity, ur Clear Clear [facility] YEE Comment:[address] [address] Specific gravity, ur 1.005 1.003 - 1.030 [facility] YEE Comment:[address] [address] pH, urine 5.5 [facility] YEE Comment: Interpretive Data Urine pH is affected by diet, medications, systemic acid-base disturbances, and renal tubular function. ??pH may affect urinary stone formation. ??For example, urine pH below 6.0 may help reduce the tendency for calcium phosphate stones and pH greater than 6.0 may reduce the tendency for uric acid stone formation. Source: [employer] Current Interpretive Data was last revised on 2017 [facility], [address] [place] [address]., [address] Protein, ur ql Negative Negative [facility]IE YEE Comment:[address] [place]., [address] Glucose, ur ql Negative Negative CERNER Comment:[address] [address] Ketones, ur Negative Negative C[facility]ER Comment:[address] [address] Bilirubin, ur Negative Negative C[facility]ER Comment:[address] [address] Blood, ur Negative Negative [facility] Comment:[address] [address] Urobilinogen, ur <2.0 <2.0 mg/dL [facility] Comment:[address] [address] Nitrite, ur Negative Negative [facility]ER Comment:[address] [address] Leukocyte esterase, ur Negative Negative C[facility]ER Comment:[address] [address] UA reflex comment Reflex conditions for microscopic UA and culture not met. ADDIE Comment:[address] [address] Urine 06/02/2024 6:40 AM SPIKE MACHINE OPERATOR 06/02/2024 7:12 AM SPIKE MACHINE OPERATOR us Sudheer Mcdonough MD LAB MICROBIOLOGY - GENERAL O RDERABLES Final Result Performing Organization Address City/State/[facility] Co de Phone Number ADD[facility] [address] [facility] Department [place] [address] documented in this encounter Visit Diagnoses Not on filedocumented in this encounter Care Teams Supervisor Scrap Preparation Relationship Specialty Start Date End Date Sohan Rojas MD [address] [facility] [address] [place] [address] PCP - General Family Medicine 07/10/22 Lamin Mcgraw MD [address] [place] [address] Consulting Physician Urology 07/27/22 Manuel Chowdhury MD [address] [facility] [place] [address] Consulting Physician Neurology 01/21/23 [place] [address] [facility] [address] [place] [address] Consulting Physician Neurology 01/21/23 Anand Herrera MD [address] [place] [address] Consulting Physician Neurosurgery 01/26/24 documented as of this encounter
--- OUTSIDE RECORDS SUMMARY | 2024-08-07 02:23 | XMS_ITS | Encounter Summary ---
Author Organization [facility] Healthcare Address [address] [place] [address] Care Team Providers Care Boat Patcher Plastic Name Role Phone Sohan Rojas MD Primary Care Provider Lamin Mcgraw MD Unavailable [phone] Manuel Chodwhury MD Unavailable Shahrzad SONI MD, Carlos M. Unavailable Anand Herrera MD Unavailable Encounter Details Date Type Department Care Team (Late st Contact Info) Description 05/21/2024 Orders Only [facility] Hospitalists [address] [place] [address] Eddie Acosta, DO [facility] [place] [address] Social History Tobacco Use Types Packs/Day Years Used Date Smoking Tobacco: Former Pipe Q uit: 11/28/1979 Smokeless Tobacco: Never Alcohol Use Standard Drinks/Week Comments Not Currently 0 (1 standard drink = 0.6 oz pur e alcohol) [facility] Utilities Answer Date Recorded In the [...] often do you attend chur ch or moravian services? Never 05/22/2024 Do you belong to any clubs o r organizations such as advent groups, unions, fraternal or athletic groups, or [...] staff should administer the PHQ-9) 0 01/26/2024 [facility] - Occupational Stress [...] were you homeless or living in a nursing home (including now)? 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 Gender Identity Male 03/24/2021 7:53 PM CDT Sexual Orientation Straight 03/24/2021 7: 53 PM CDT Occupation Industry Job Start Date Job End Date retired Not on file Not on file Not on file documented as of this encounter Plan of Treatment Not on file documented as of this encounter Visit Diagnoses Not on filedocumented in this encounter Care Teams Boat Patcher Plastic Relationship Specialty Start Date End Date Sohan Rojas MD [address] [facility] [address] [place] [address] PCP - General Family Medicine 07/10/22 Lamin Mcgraw MD [address] [place] [address] Consulting Physician Urology 07/27/22 Manuel Chowdhury MD [address] [place] [address] Consulting Physician Neurology 01/21/23 [place] [address] [facility] [address] [place] [address] Consulting Physician Neurology 01/21/23 Anand Herrera MD [address] [facility] [address] [place] [address] Consulting Physician Neurosurgery 01/26/24 documented as of this encounter
--- OUTSIDE RECORDS SUMMARY | 2024-08-07 02:23 | XMS_ITS | Encounter Summary ---
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 Name Role Phone Sohan Rojas MD Primary Care Provider Lamin Mcgraw MD Unavailable Manuel Chowdhury MD Unavailable Shahrzad SONI MD, [place] Unavailable [phone] Anand Herrera MD Unavailable Reason for Visit * Auth/Cert (Routine) Specialty Diagnoses / Procedures Referred By Contac t Referred To Contact Diagnoses AMS (altered mental status) Ground level fall Altered Mental Status neuro tele Procedures NA Referral ID Status Reason Start Date Expiration Date Visits Re quested Visits Authorized [id number] 1 1 Encounter Details Date Type Department Care Team (Latest Contact Info) Description 05/21/2024 4:31 AM DEVOPS CONSULTANT - 05/29/2024 3:51 PM DEVOPS CONSULTANT Hospital Encounter [facility] [address] [place] [id number] Eddie Acosta DO [address] [place] [address] Marguerite Wolfe MD [address] [place] [address] Javid Riddle DO [address] [place] [address] Abnormality of gait and mobility (Primary Dx); Anemia, unspecified type [D64.9]; Balance problem [R26.89]; Chronic pain syndrome [G89.4] Discharge Disposition: Discharge to SNF Social History Tobacco Use Types Packs/Day Years Used Date Smoking Tobacco: Former Pipe Q uit: 11/28/1979 Smokeless Tobacco: Never Alcohol Use Standard Drinks/Week Comments Not Currently 0 (1 standard drink = 0.6 oz pur e alcohol) [facility] Utilities Answer Date Recorded In the past 12 months has [employer], gas, oil, or water [employer] threatened to shut off services in your [...] often do you attend chur ch or christian services? Never 05/22/2024 Do you belong to any clubs o r organizations such as scientology groups, unions, fraternal or athletic groups, or [...] staff should administer the PHQ-9) 0 01/26/2024 [facility] Questionnaire Answer Date Recorded [...] any time in the past 12 m [facility], were you homeless or living in a detention (including now)? No 05/22/2024 Personal Safety Answer [...] on file Legal Sex Male 8:20 PM DEVOPS CONSULTANT Gender Identity Male 03/24/2021 7:53 PM CDT Sexual Orientation Straight 03/24/2021 7: 53 PM CDT Occupation Industry Job Start Date Job End Date retired Not on file Not on file Not on file documented as of this encounter Last Filed Vital Signs Vital Sign Reading Time Taken Comments Blood Pressure 156/65 05/29/2024 3:57 AM DEVOPS CONSULTANT Pulse 77 05/29/2024 3:57 AM DEVOPS CONSULTANT Temperature 36.4 ??C (97.6 ??F) 05/29/2024 3:57 AM CS T Respiratory Rate 20 05/29/2024 3:57 AM DEVOPS CONSULTANT Oxygen Saturation 99% 05/29/2024 7:21 AM DEVOPS CONSULTANT Inhaled Oxygen Concentration - - Weight 70.3 kg (155 lb) 05/21/2024 9:33 AM DEVOPS CONSULTANT Height 177.8 cm (5' 10 ) 05/21/2024 9:33 AM DEVOPS CONSULTANT Body Mass Index 22.24 05/21/2024 9:33 AM DEVOPS CONSULTANT documented in this encounter Discharge Summaries * Javid Riddle DO - 05/29/2024 7:56 AM CST Inpatient Discharge Summary BRIEF OVERVIEW Patient Name - Gulshan Johnston Patient Age - 84 yrs Patient - [id number] [facility] - [id number] Document Creation Date: 05/29/2024 Admitting Provider, MD: Marguerite Wolfe MD Discharge Provider, : Javid Riddle DO Primary Care Physician at Discharge: Sohan Rojas MD [phone] Admission Date: 05/21/2024 Discharge Date/time: 05/29/2024 Admission Location: [facility] LOS - LOS: 8 days DETAILS OF HOSPITAL STAY Hospital Problems/Diagnoses Principal Problem: AMS (altered mental status) Active Problems: Hypercholesterolemia Prostate cancer (HCC) 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 behavioral disturbance, psychotic disturbance, mood disturbance, or anxiety (HCC) NPH (normal pressure hydrocephalus) (HCC) Reason for Hospitalization per Dr. Wolfe: Majority history is obtained from patient's chart review recent hospitalizations at [facility] ER documentation etc. 84-year-old male history of anxiety asthma GERD dyslipidemia obstructive sleep apnea. He is a direct admit from [facility] for chief complaint of unspecified altered mental status. Briefly patient was admitted at [facility] on 05/15/2024 chief complaint to rule [...] Daughter present at bedside states prior to [facility] admission for lumbar drain and NPH [...] remains medically stable for discharge since 05/25. [facility] has a bed available today. Sitter was discontinued 05/27 without issue thus far. He remains alert and cooperative during the day. I have been following peripherally. Currently awaiting insurance authorization Discharge Details Physical Exam at Discharge: Discharge Condition: stable Pulse: 77 Resp: 20 BP: 156/65 Temp: 36.4 ??C (97.6 ??F) Weight: 70.3 kg (155 lb) Pertinent Exam Findings at Discharge: General: Patient in no acute distress, alert HEENT: Normocephalic, atraumatic, sclera non-icteric Lungs: Normal respiratory effort Abd: soft, non-tender, non-distended Skin: No rash Extremities: No edema Neuro: No focal motor sensory deficits Discharge Disposition: Discharge to SNF Code Status at Discharge: Full Code Active Issues & Recommended Plan for Follow-up: With PCP as needed Time Spent in Discharge Process: I have spent 20 minutes on discharge planning activities. Time spent was on Coordination of care Test Results Pending at Discharge (If Blank, None Found): Operative Procedures Performed (If Blank, None Found): Other Procedures & Diagnostic Tests: No results found. Recent Labs: Recent Labs Lab Units 05/25/24112705/24/2461105/23/24626 WBC K/cumm 5.5 4.2 5.0 HEMOGLOBIN g/dL 10.8* 11.4* 11.2* HEMATOCRIT % 32.1* 32.6* 32.0* PLATELETS K/cumm 203 209 202 Recent Labs Lab Units 05/25/24112705/24/2461105/23/24626 WBC K/cumm 5.5 4.2 5.0 HEMOGLOBIN g/dL 10.8* 11.4* 11.2* HEMATOCRIT % 32.1* 32.6* 32.0* PLATELETS K/cumm 203 209 202 NEUTROS PCT % 69.8 54.7 59.7 LYMPHS PCT % 15.1 29.3 25.6 MONOS PCT % 9.1 8.6 9.1 EOS PCT % 4.9 6.5 4.6 Recent Labs Lab Units 05/25/24112705/24/2461105/23/24626 SODIUM mmol/L 135 138 135 POTASSIUM PLASMA mmol/L 4.2 3.8 3.6 CHLORIDE mmol/L 103 102 100 CO2 mmol/L 23 24 23 BUN SERUM mg/dL 19 18 22 CREATININE mg/dL 0.99 1.06 0.97 VCA-CKB-OFMQEMA mL/min/1.73 m2 76 70 78 GLUCOSE mg/dL 108 111 100 CALCIUM mg/dL 8.8 9.1 8.9 Recent Labs Lab Units 05/25/24112705/24/2461105/23/24626 SODIUM mmol/L 135 138 135 POTASSIUM PLASMA mmol/L 4.2 3.8 3.6 CHLORIDE mmol/L 103 102 100 CO2 mmol/L 24 23 ANIONGAP mmol/L 9 12 12 GLUCOSE mg/dL 108 111 100 BUN SERUM mg/dL 19 18 22 CREATININE mg/dL 0.99 1.06 0.97 CALCIUM mg/dL 8.8 9.1 8.9 No lab exists for component: LABALBU Lab Results Component Value Date GLUCOSE 108 05/25/2024 GLUCOSE 111 05/24/2024 GLUCOSE 100 05/23/2024 Discharge Orders General Precautions: Precautions: Bed/Chair Alarm, Fall risk Nutritional Status and in-house recommendations: Dietary Orders (From admission, onward) Start Ordered 05/21/24 0858 Adult Diet Regular Diet effective now Question: ([facility]) Diet type Answer: Regular 05/21/24 0857 Allergies: Memantine and Other Discharge Medications: Your medication list START taking these medications Instructions Last Dose Given Next Dose Due traZODone 50 mg tablet Doctor's comments: NH/SNF Location: [facility] Commonly known as: DESYREL 25 mg, oral, Nightly CONTINUE taking these medications Instructions Last Dose Given Next Dose Due acetaminophen 325 mg tablet Commonly known as: TYLENOL 650 mg, oral, Every 4 hours PRN albuterol HFA 90 mcg/actuation inhaler Commonly known as: PROVENTIL HFA,VENTOLIN HFA,PROAIR HFA 2 puffs, inhalation, Every 4 hours PRN atorvastatin 20 mg tablet Commonly known as: LIPITOR 20 mg, oral, Daily Breo Ellipta 100-25 mcg/dose diskus inhaler Generic drug: fluticasone furoate-vilanteroL 1 puff, inhalation, Daily cholecalciferol (vitamin D3) 1,000 unit tablet,chewable 1 tablet/chew tab, oral, Daily cranberry extract 200 mg capsule 2 capsules, oral, [address] 75 mg EC tablet Commonly known as: VOLTAREN 75 mg, oral, 2 times daily, HOLD THIS MEDICATION UNTIL YOU FOLLOW UP WITH NEUROSURGERY donepeziL 10 mg tablet Commonly known as: ARICEPT 10 mg, oral, Nightly escitalopram 10 mg tablet Commonly known as: Lexapro 10 mg, oral, Daily finasteride 5 mg tablet Commonly known as: PROSCAR 5 mg, oral, Daily fluticasone propionate 50 mcg/actuation nasal spray Commonly known as: FLONASE 2 sprays, each nostril, Daily ibuprofen 800 mg tablet Commonly known as: ADVIL,MOTRIN 800 mg, oral, Every 6 hours, HOLD THIS MEDICATION UNTIL YOU FOLLOW UP WITH NEUROSURGERY multivitamin with minerals tablet 1 tablet, oral, Daily omega 2-kao-vfi-fish oil 360-1,200 mg capsule,delayed release(DR/EC) 1 capsule, oral, Daily, HOLD THIS MEDICATION UNTIL YOU FOLLOW UP WITH NEUROSURGERY omeprazole 20 mg capsule Commonly known as: PriLOSEC oral, Daily tamsulosin 0.4 mg extended release capsule Commonly known as: FLOMAX 0.4 mg, oral, Daily terbinafine 250 mg tablet Commonly known as: LamiSIL 250 mg, Daily vitamin E 1,000 unit capsule Commonly known as: AQUASOL E 5,000 Units, oral, Daily, HOLD THIS MEDICATION UNTIL YOU FOLLOW UP WITH NEUROSURGERY Vitamins B Complex tablet Generic drug: vitamin b complex 1 tablet, oral, Daily Where to Get Your Medications These medications were sent to [facility]/pharmacy #[id number] - [place], [place] [facility] [address] [facility] [address] [facility] [address] traZODone 50 mg tablet Outpatient Follow-Up: Future Appointments Date Time Provider Department [place] 06/05/2024 2:15 PM Anand Herrera MD NEURO ACB1B NS 07/06/2024 8:45 AM Derrell Mcintosh NP [facility] 40 NL 07/31/2024 2:45 PM Sohan Rojas MD PCP ED2 PC Contact Information for Follow-ups [place] [phone] Next Steps: Follow up Sohan Rojas MD Specialty: Family Medicine, Wound Care Relationship: PCP - General [address] [address] Next Steps: Follow up Instructions: Call provider for an appointment to follow up within 1 week Questions: Instructions for follow-up (appointment date and time): Call provider for an appointment to follow up within 1 week To provider: SOHAN ROJAS Please schedule an appointment with the following provider(s): [place] [address] Follow up Sohan Rojas MD [address] [address] Call provider for an appointment to follow up within 1 week Anticoagulation Indication: INR: 05/15/2024: 1.14 Warfarin Administrations (last 168 hours) None Oxygen Status O2 Therapy for the past 12 hrs: O2 Therapy 05/29/24 0721 None (Room air) Wound Care Instructions Active LDAs (If Blank, None Found): Peripheral IV 05/18/24 22 G Posterior;Right Hand (Active) Placement Date/Time: 05/18/24 021 Size (Gauge): 22 G Location Orientation: Posterior;Right Location: Hand Site Prep: Chlorhexidine Inserted by: Chelsey MCKOY Insertion attempts: 1 Patient Tolerance: Tolerated well Peripheral IV 05/21/24 Anterior;Distal;Left Brachial (Active) Placement Date/Time: (c) 05/21/241929 Location Orientation: Anterior;Distal;Left Location: Brachial END OF ORDERS Patient Emergency Contact: Primary Emergency Contact: Dominga Garner Immunization Status at Discharge Immunization History Administered Date(s) Administered COVID-19 mRNA ([employer]) 0.3 mL (30 mcg) vaccine (12 years and up) 05/21/2023 Influenza, Quad, Adjuvantated, Intramuscular 04/30/2021, 05/08/2022, 05/21/2023 Influenza, Quadrivalent, High Dose, Preservative Free, Intrr 04/08/2020 Influenza, Trivalent, High Dose, Split, Preservative Free, Intramuscular 04/30/2014, 04/29/2017, 05/06/2018, 04/26/2019 Influenza, Trivalent, Preservative Free, Intramuscular 04/18/2016 Influenza, Unspecified 06/05/2021 Pfizer SARS-CoV-2 Monovalent Vaccination (12+ Yrs) PURPLE 08/30/2020, 09/20/2020, 06/05/2021 Pfizer Sars-Cov-2 Bivalent Vaccination (12+ YRS) 05/08/2022, 05/21/2023 Pneumococcal Conjugate PCV 13 07/27/2019 Pneumococcal Conjugate Pcv20 07/27/2022 Tdap 12/15/2015 ZOSTER Recombinant 04/08/2020 Javid Riddle DO PS CONSULTANT documented in this encounter Medications at Time of Discharge acetaminophen (TYLENOL) 325 mg tabletIndications :Pain Take 2 tablets (650 mg total) by mouth every 4 (four) hours as needed for pain 05/19/2024 4 albuterol HFA (PROVENTIL HFA,VENTOLIN HFA,PROAIR HFA) 90 mcg/actuation inhalerIndication s:Bronchospasm Prevention Inhale 2 puffs every 4 (four) hours as needed for wheezing 1 each 3 07/27/2022 4 atorvastatin (LIPITOR) 20 mg tabletIndications :Hypercholesterol emia TAKE 1 TABLET BY MOUTH EVERY DAY 90 tablet 3 02/28/2024 4 Breo Ellipta 100-25 mcg/dose diskus inhalerIndication s:Mild intermittent asthma without complication INHALE 1 PUFF BY MOUTH EVERY DAY 180 each 04/28/2023 4 cholecalciferol, vitamin D3, 1,000 unit tablet,chewable Take 1 tablet/chew tab by mouth daily 4 cranberry extract 200 mg capsule Take 2 capsules by mouth 3 (three) times a day 03/10/[address] (VOLTAREN) 75 mg EC tabletIndications :Degenerative lumbar spinal stenosis Take 1 tablet (75 mg total) by mouth 2 (two) times a day HOLD THIS MEDICATION UNTIL YOU FOLLOW UP WITH NEUROSURGERY 05/19/2024 4 donepeziL (ARICEPT) 10 mg tabletIndications :Mild to Moderate Alzheimer's Type Dementia Take 1 tablet (10 mg total) by mouth nightly 90 tablet 3 07/26/2023 4 escitalopram (Lexapro) 10 mg tablet Take 1 tablet (10 mg total) by mouth daily 30 tablet 11 07/30/2023 4 finasteride (PROSCAR) 5 mg tablet Take 1 tablet (5 mg total) by mouth daily 05/20/2024 4 fluticasone propionate (FLONASE) 50 mcg/actuation nasal sprayIndications: Acute non-recurrent maxillary sinusitis Administer 2 sprays into each nostril daily 3 each 4 04/15/2022 4 ibuprofen (ADVIL,MOTRIN) 800 mg tablet Take 1 tablet (800 mg total) by mouth every 6 (six) hours HOLD THIS MEDICATION UNTIL YOU FOLLOW UP WITH NEUROSURGERY 05/19/2024 4 multivitamin with minerals tablet Take 1 tablet by mouth daily 4 omega 3-nrz-pkz-fish oil 360-1,200 mg capsule,delayed release(DR/EC) Take 1 capsule by mouth daily HOLD THIS MEDICATION UNTIL YOU FOLLOW UP WITH NEUROSURGERY 05/19/2024 4 omeprazole (PriLOSEC) 20 mg capsuleIndication s:Gastroesophagea l reflux disease without esophagitis TAKE 1 CAPSULE BY MOUTH EVERY DAY 90 capsule 1 03/02/2024 4 tamsulosin (FLOMAX) 0.4 mg extended release capsule Take 1 capsule (0.4 mg total) by mouth daily 4 terbinafine (LamiSIL) 250 mg tablet Take 1 tablet (250 mg total) by mouth daily 05/01/2024 4 traZODone (DESYREL) 50 mg tablet Take 0.5 tablets (25 mg total) by mouth nightly 15 tablet 05/29/2024 4 vitamin b complex (Vitamins B Complex) tablet Take 1 tablet by mouth daily 4 vitamin E (AQUASOL E) 1,000 unit capsule Take 5 capsules (5,000 Units total) by mouth daily HOLD THIS MEDICATION UNTIL YOU FOLLOW UP WITH NEUROSURGERY 05/19/2024 4 documented as of this encounter Ordered Prescriptions Prescription Sig Dispense Quantity Refills Last Filled Start Date End Date traZODone (DESYREL) 50 mg tablet Take 0.5 tablets (25 mg total) by mouth nightly 15 tablet 05/29/2024 4 documented in this encounter Discharge Disposition Disposition Code Departure Means Destination Comment s Discharge to [facility] ([place], [place]) documented in this encounter Progress Notes * Anahi Mena, OT - 05/29/2024 9:31 AM CST Occupational Therapy 05/29/24 0931 General Session Type Treatment OT Received On 05/29/24 Safe Environment Arm band checked;Patient found sitting in chair;Session completed bedside;Gait belt utilized for all out of bed mobility Subjective Agreeable to Therapy Subjective Comment States he likes to watch the highway traffic because it is hypnotizing Family/Caregiver Present No Precautions Precautions Bed/Chair Alarm;Fall risk Pain Assessment Pain Assessment No/denies pain Clinical Progression Not changed Grooming Grooming: Where assessed Chair Grooming: Level of assistance Minimum Assist Grooming: Assistance with Shaving (thoroughness with electric razor) Bathing Bathing: Where assessed Sitting;Standing;Chair Bathing: Level of assistance Minimum Assist Bathing: Assistance with Perineal area;Buttocks;Increased time to complete ;Safety;Balance Bath Bathed/showered non-chg (CHG not indicated OR not required here) LE Dressing LE Dressing: Where assessed Sitting;Standing;Chair LE Dressing: Level of assistance Minimum Assist (underwear, socks SBA) LE Dressing: Assistance with Requires assistive device for steadying;Verbal cueing;Supervision/safety;Increased time to complete;Pull up over hips;Safety;Balance;Problem solving Toileting Toileting: Where assessed (simulated) Toileting: Level of assistance Minimum Assist Toileting: Assistance with Clothing management down;Clothing management up;Balance;Safety Transfer 1 Trials/Comments 1 minimal assist for force production and balance on/off toilet with grab bar and ambulation to/from restroom with WW and verbal cues for safety and hand placement; assist at times for controlled landing Exercise Tools Other Exercise Tool 1 BUE AROM x 15 shoulder/elbow/wrist flexion/extension Cognition Cognition Comments baseline dementia Overall Cognitive Status Impaired Arousal/Alertness Alert;Appropriate responses to stimuli Attention Span Attends with cues to redirect Memory Decreased short term memory Orientation Oriented to person Following Commands Follows one step commands without difficulty Safety Judgment Decreased awareness of need for assistance Awareness of Errors Decreased awareness of errors Insight Decreased awareness of deficits Problem Solving Assistance required to generate solutions;Assistance required to identify errors made Compliance/Behavior Easy to engage Safe Environment End of Therapy Session Safe Environment End of Therapy Session Patient left in recliner;Chair alarm in place and activated;Call light within reach;Overbed table within reach Assessment Prognosis Good Problem List Decreased safe judgment during ADL;Decreased cognition;Decreased endurance;Decreased balance;Decreased functional mobility;Decreased ADL independence;Decreased IADL independence Barriers to Discharge Current Mobility Status;Current ADL Status;Cognition;Decreased safety awareness;Decreased caregiver support Plan Plan If this is the last note, consider this the discharge summary;Continue with current plan Recommendation/Plan OT Recommendation (S) Half-Way Facility Patient at high risk for Falls;Readmission;Injury due to decreased ability to care for self;Injury due to reduced functional status;Injury due to impaired cognition;Injury due to balance deficits;Injury at home as patient has not returned to prior level of function Recommend SNF due to Risk of injury at home;Unable to safely care for self in the home;Skilled therapy needed to address care for self in the home;Skilled therapy needed to address functional deficits;Skilled therapy needed for patient to return to prior level of independence OT Frequency during current admission 2-3x/wk Treatment/Interventions during current admission Balance Training;ADL/IADL retraining;Endurance training;Functional mobility training;Functional activity;Functional transfer training;Strengthening;Therapeutic activity;Therapeutic exercise;Transfer training Progress during current admission Progressing toward goals OT Time Calculation OT Start Time 930 OT Stop Time 1023 OT Time Calculation (min) 53 min Education: Patient has been educated on the role of OT, safety, precautions, ADL training, and mobility training. Education completed via verbal instruction. Patient needs ongoing reinforcement Multi-Disciplinary Problems (from Occupational Therapy) Active Problems Problem: OT Misc Start Date: 05/21/24 Goal Start Date Expected End Date End Date Pt will complete toileting including clothing management, hygiene, and transfer with SBA using adaptive techniques/equipment as needed. 05/21/24 06/11/24 -- Goal Start Date Expected End Date End Date Pt will complete grooming while standing at the sink with SBA using assistive devices as needed. 05/21/24 06/11/24 -- Goal Start Date Expected End Date End Date Pt will complete lower body dressing with SBA using adaptive equipment as needed. 05/21/24 06/11/24-- PS CONSULTANT * Senait Garrido DPT - 05/29/2024 7:40 AM CST Physical Therapy 05/29/24 0740 PT Last Visit Session Type Treatment PT Received On 05/29/24 Safe Environment Arm band checked;Patient found in supine;Session completed in gym;Gait belt utilized for all out of bed mobility Subjective Agreeable to Therapy Subjective Comment The pt. states that he is ready to get up and eat. He is agreeable to PT now. Family/Caregiver Present No Precautions Precautions Bed/Chair Alarm;Fall risk Pain Assessment Pain Assessment 0-10 Pain Score 0 - No pain Clinical Progression Not changed Cognition Cognition Comments baseline dementia Arousal/Alertness Alert;Appropriate responses to stimuli Following Commands Follows one step commands without difficulty Compliance/Behavior Easy to engage Static Standing Balance Static Standing-Comment/# of Minutes The pt. stands statically on the flikdate stability ultimate hoops trainer with his feet approximately 4 inches apart from each other without UE support. He maintains his balance first with his eyes open, and then with his eyes closed. He requires between minimal and Mod assistance for this task due to losses of balance, mostly while standing with his eyes closed. The pt. then stands with his feet 1 inch apart from each other and maintains his balance with minimal to Mod assistance with his eyes open only. Bed Mobility 1 Bed Mobility From 1 Supine Bed Mobility Type 1 To Bed Mobility to 1 Edge of bed Level of Assistance 1 Minimum Assist Bed Mobility Comments 1 The pt. requires cueing to scoot forward so that his feet are on the ground. Transfers Transfer Yes Transfer 1 Transfer From 1 Sit Transfer Type 1 To and from Transfer to 1 Stand Transfer Device 1 Wheeled walker Transfer Level of Assistance 1 Minimum Assist;Moderate Assist Trials/Comments 1 The pt. performs sit to and from stand multiple times throughout the session. Transfers 2 Transfer From 2 Stand Transfer Type 2 To Transfer to 2 Chair with arms Technique 2 Stand pivot Transfer Device 2 Wheeled walker Transfer Level of Assistance 2 Minimum Assist;Moderate Assist Trials/Comments 2 The pt. requires cueing to maneuver all the way around to the chair before attempting to sit down. Ambulation 1 Distance (ft) 1 120 x 2 Surface 1 Level tile Device 1 Wheeled walker Assistance 1 Minimum Assist;Moderate Assist Gait: Requires assist with 1 Maintaining balance Gait: Requires verbal cues to 1 Improve upright posture;Increase step length Ambulation Comments 1 The pt. ambulates with parkinsonian gait with short shuffling steps, absent heel strike bilaterally, decreased knee flexion during swing phase of gait bilaterally, and minimallyflexed posture. The pt. is responsive to cueing to increase his step length, but quickly reverts back to short shuffling steps. Stairs Stairs Yes Stairs Number of Stairs 1 4 Rails 1 Bilateral Assistance 1 Minimum Assist Stairs: Requires assist with 1 Balance;Force production Other Comments Other PT Comments 1) The pt. ambulates with a gait speed of 0.27 meters/second, indicating that he needs intervention to reduce his fall risk, that he is more likely to be hospitaized, and that he ismore likely to discharge to a SNF. 2) The pt. participates in the modified 30 second sit to stand test this date. He is able to complete 8 repetitions of sit to and from stand within a 30 second timeperiod with bilateral UE use. Normative data indicates that the pt. should be able to complete 14 repetitions. This is indiciative of impaired functional LE strength, impaired functional mobility, and impaired balance. Safe Environment End of Therapy Session Safe Environment End of Therapy Session Patient left in recliner;Chair alarm in place and activated;Overbed table within reach;Call light within reach Assessment Prognosis Good Problem List Reduced mobility;Gait deviations;Decreased strength;Decreased endurance;Impaired balance;Decreased coordination;Decreased cognition;Impaired judgement;Decreased safety awareness;Posturaldeficit Barriers to Discharge Current Mobility Status;Cognition;Decreased safety awareness Plan Plan Continue with current plan;If this is the last note, consider this the discharge summary Recommendation/Plan PT Recommendation/Plan (S) Half-Way Facility Patient at high risk for Falls;Readmission;Injury due to decreased ability to care for self;Injury due to reduced functional status;Injury due to impaired cognition;Injury due to balance deficits;Injury at home as patient has not returned to prior level of function Recommend SNF due to Risk of injury at home;Unable to safely care for self in the home;Skilled therapy needed to address care for self in the home;Skilled therapy needed to address functional deficits;Skilled therapy needed for patient to return to prior level of independence PT Equipment Recommended Other (Comment) (pending progress) Progress during current admission Progressing toward goals PT Time Calculation PT Start Time 0740 PT Stop Time 0819 PT Time Calculation (min) 39 min Education: Patient has been educated on the role of PT and mobility training. Education completed via explanation and demonstration. Patient verbalized understanding and needs ongoing reinforcement due to cognitive deficits. Multi-Disciplinary Problems (from Physical Therapy) Active Problems Problem: PT Misc Start Date: 05/22/24 Goal Start Date Expected End Date End Date The pt. Will transfer sit to and from stand with modified IND. 05/22/24 05/29/24 -- Goal Start Date Expected End Date End Date The pt. Will transfer between the bed and chair with the WW and modified IND. 05/22/24 05/29/24 -- Goal Start Date Expected End Date End Date The pt. Will ambulate 150 feet with a WW and modified IND. 05/22/24 05/29/24 -- Goal Start Date Expected End Date End Date The pt. Will participate in standing balance activities to improve his ROMEO balance scale by 8 points or more. 05/22/24 05/29/24 -- Goal Start Date Expected End Date End Date The pt. Will go up/down 2 steps with 1 railing and modified IND. 05/22/24 05/29/24 -- PS CONSULTANT * Javid Riddle, DO - 05/28/2024 9:56 AM CST Internal Medicine Daily Progress Note Gulshan remains medically stable for discharge since 05/25. [facility] is expected to have a bed available on Wednesday. Sitter was discontinued 05/27 without issue thus far. He remains alert andcooperative during the day. I have been following peripherally. Objective Vitals: 24hr Min/Max: Temp Min: 36.2 ??C (97.1 ??F) Max: 36.8 ??C (98.3 ??F) Pulse Min: 67 Max: 79 BP Min: 130/67 Max: 168/70 Resp Min: 16 Max: 18 SpO2 Min: 99 % Max: 100 % Most Recent : Vitals: 05/28/24 0722 BP: Pulse: Resp: Temp: SpO2: 100% I/O last 2 completed shifts: In: - Out: 1400 [Urine:1400] I/O this shift: In: - Out: 500 [Urine:500] Physical Exam: General: Patient in no acute distress, alert and interactive HEENT: Normocephalic, atraumatic, sclera non-icteric Lungs: Normal respiratory effort Abd: soft, non-tender, non-distended Skin: No rash Extremities: No edema Lab/Radiology/Diagnostic Review: Recent Labs Lab Units 05/25/24 1128 05/24/24 0612 05/23/24 0627 05/22/24 0334 05/21/24 1058 SODIUM mmol/L 135 138 135 < > 136 POTASSIUM PLASMA mmol/L 4.2 3.8 3.6 < > 4.6 CHLORIDE mmol/L 103 102 100 < > 98 CO2 mmol/L 23 24 23 < > 25 ANIONGAP mmol/L 9 12 12 < > 13 GLUCOSE mg/dL 108 111 100 < > 115 BUN SERUM mg/dL 19 18 22 < > 20 CREATININE mg/dL 0.99 1.06 0.97 < > 0.75* CALCIUM mg/dL 8.8 9.1 8.9 < > 9.4 ALBUMIN g/dL -- -- -- -- 3.9 ALK PHOS Units/L -- -- -- -- 55 ALT Units/L -- -- -- -- 25 AST Units/L -- -- -- -- 33 BILIRUBIN TOTAL mg/dL -- -- -- -- 0.6 < > = values in this interval not displayed. Recent Labs Lab Units 05/25/24 1128 05/24/24 0612 05/23/24 0627 WBC K/cumm 5.5 4.2 5.0 HEMOGLOBIN g/dL 10.8* 11.4* 11.2* HEMATOCRIT % 32.1* 32.6* 32.0* PLATELETS K/cumm 203 209 202 Assessment: Principal Problem: AMS (altered mental status) Active Problems: Hypercholesterolemia Prostate cancer (HCC) 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 behavioral disturbance, psychotic disturbance, mood disturbance, or anxiety (HCC) NPH (normal pressure hydrocephalus) ([facility]) Plan: Fall Altered Mental Status Dementia Known NPH s/p Drain Neurology consulted. Discussed with Dr. De La Vega Difficult to discern etiology with NPH and known underlying dementia Continue supportive measures Previous drain was discontinued 05/18 Laboratory data unremarkable Continue Aricept Added low dose Trazodone to assist with maintaining appropriate sleep/wake cycle Discontinue further lab draws Sitter discontinued 05/27 Dyslipidemia Atorvastatin 20mg Depression and Anxiety Lexapro 10mg BPH Proscar and Flomax VTE PPx: Lovenox Code Status: Full Code MDM: Low. No change to plan of care again today Disposition: Medically stable for discharge since 05/25 Javid Riddle, DO, MS, FACP, FACOI For patients or family members viewing this note through [employer] access: This note was written as a communication tool between healthcare providers and may contain technical language, terminology, and abbreviations that are difficult to interpret without advanced medical training. If you have questions or concerns regarding what is written in this note, please contact our office at . PS CONSULTANT * Javid Riddle, - 05/27/2024 10:20 AM CST Internal Medicine Daily Progress Note Gulshan remains medically stable for discharge since 05/25. [facility] is expected to have a bed available on Wednesday. He will need to be sitter-free for 24hrs prior to discharge there. Sitteris being discontinued today. No issues thus far. He remains alert and cooperative during the day Objective Vitals: 24hr Min/Max: Temp Min: 36.6 ??C (97.9 ??F) Max: 36.9 ??C (98.5 ??F) Pulse Min: 70 Max: 88 BP Min: 130/89 Max: 164/72 Resp Min: 18 Max: 20 SpO2 Min: 97 % Max: 100 % Most Recent : Vitals: 05/27/24 0728 BP: Pulse: Resp: Temp: SpO2: 98% I/O last 2 completed shifts: In: 1440 [P.O.:1440] Out: 3150 [Urine:3150] I/O this shift: In: - Out: 400 [Urine:400] Physical Exam: General: Patient in no acute distress, alert and interactive HEENT: Normocephalic, atraumatic, sclera non-icteric Lungs: Normal respiratory effort Abd: soft, non-tender, non-distended Skin: No rash Extremities: No edema Neuro: No focal motor sensory deficits Lab/Radiology/Diagnostic Review: Recent Labs Lab Units 05/25/24 1128 05/24/24 0612 05/23/24 0627 05/22/24 0334 05/21/24 1058 SODIUM mmol/L 135 138 135 < > 136 POTASSIUM PLASMA mmol/L 4.2 3.8 3.6 < > 4.6 CHLORIDE mmol/L 103 102 100 < > 98 CO2 mmol/L 23 24 23 < > 25 ANIONGAP mmol/L 9 12 12 < > 13 GLUCOSE mg/dL 108 111 100 < > 115 BUN SERUM mg/dL 19 18 22 < > 20 CREATININE mg/dL 0.99 1.06 0.97 < > 0.75* CALCIUM mg/dL 8.8 9.1 8.9 < > 9.4 ALBUMIN g/dL -- -- -- -- 3.9 ALK PHOS Units/L -- -- -- -- 55 ALT Units/L -- -- -- -- 25 AST Units/L -- -- -- -- 33 BILIRUBIN TOTAL mg/dL -- -- -- -- 0.6 < > = values in this interval not displayed. Recent Labs Lab Units 05/25/24 1128 05/24/24 0612 05/23/24 0627 WBC K/cumm 5.5 4.2 5.0 HEMOGLOBIN g/dL 10.8* 11.4* 11.2* HEMATOCRIT % 32.1* 32.6* 32.0* PLATELETS K/cumm 203 209 202 Assessment: Principal Problem: AMS (altered mental status) Active Problems: Hypercholesterolemia Prostate cancer (HCC) 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 behavioral disturbance, psychotic disturbance, mood disturbance, or anxiety (HCC) NPH (normal pressure hydrocephalus) ([facility]) Plan: Fall Altered Mental Status Dementia Known NPH s/p Drain Neurology consulted. Discussed with Dr. De La Vega Difficult to discern etiology with NPH and known underlying dementia Continue supportive measures Previous drain was discontinued 05/18 Laboratory data unremarkable Continue Aricept Added low dose Trazodone to assist with maintaining appropriate sleep/wake cycle Discontinue further lab draws Discontinuing sitter today Dyslipidemia Atorvastatin 20mg Depression and Anxiety Lexapro 10mg BPH Proscar and Flomax VTE PPx: Lovenox Code Status: Full Code MDM: Low. No change to plan of care today Disposition: Medically stable for discharge since 05/25 Javid Riddle DO, MS, FACP, FACOI For patients or family members viewing this note through [employer] access: This note was written as a communication tool between healthcare providers and may contain technical language, terminology, and abbreviations that are difficult to interpret without advanced medical training. If you have questions or concerns regarding what is written in this note, please contact our office at . PS CONSULTANT * Lauryn Torres PTA - 05/26/2024 4:00 PM CST Physical Therapy 05/26/24 1600 PT Last Visit Session Type Treatment PT Received On 05/26/24 Safe Environment Arm band checked;Patient found sitting in chair;Gait belt utilized for all out of bed mobility Subjective Agreeable to Therapy Family/Caregiver Present No Precautions Precautions Bed/Chair Alarm;Fall risk Precaution Comments 1:1 sitter Activity Tolerance Endurance Tolerates 30 min activity with multiple rests Activity Tolerance Comments Vitals VSS throughout Pain Assessment Pain Assessment 0-10 Pain Score 0 - No pain Clinical Progression Not changed Cognition Cognition Comments Baseline dementia Overall Cognitive Status Impaired Orientation Oriented to person Compliance/Behavior Easy to engage Static Sitting Balance Static Sitting-Balance Support Feet supported Static Sitting-Sitting Surface Chair Static Sitting-Level of Assistance Distant supervision Static Standing Balance Static Standing-Balance Support Bilateral upper extremity supported Static Standing-Standing Surface Floor Static Standing-Level of Assistance Minimum assistance (with cues for increased for increased JULIEN) Dynamic Standing Balance Dynamic Standing-Balance Support Bilateral upper extremity supported Dynamic Standing-Balance Lateral lean;Forward lean Dynamic Standing-Standing Surface Floor Dynamic Standing-Level of Assistance Minimum assistance Dynamic Standing-Comments In //bars: pt performs tap ups to 6 box, step over 6 box x2, Moderate A,decreased proprioception for LE placment, sidestepping to L/R x 5 trials each direction, intermitten verbal cues to increase step length to avoid scissoring, Mickie step overs x4, decreased foot clearance, worsening with fatigue Standing Standing-Exercises Lower extremity;Specific exercises (standing in // bars) Standing-Exercise Type Hip flexion;ABduction;ADduction;Knee flexion;Tap ups;Heel raises Reps/Sets 10-20 Standing-Motion AROM Standing-Exercise Comments verbal cues for increased hip/knee extension, upward gaze, anterior weight shift Transfer 1 Transfer From 1 Sit;Chair with arms Transfer Type 1 To and from Transfer to 1 Stand Technique 1 Sit to stand;Stand to sit Transfer Device 1 Wheeled walker Transfer Level of Assistance 1 Minimum Assist;Moderate Assist Trials/Comments 1 pt completed multiple sit to/from stands throughout session, including 5x2 trialsin succession, assist levels increased with LE's with narrow JULIEN, fatigue, improper UE placment, intermittently pt attempts to stand w/o trunk flexion requiring a second attempt Ambulation 1 Distance (ft) 1 125'+125' Surface 1 Level tile Device 1 Wheeled walker Assistance 1 Minimum Assist;Moderate Assist Gait: Requires assist with 1 Maintaining balance;Weight shifting;Maintaining hip extension Gait: Requires verbal cues to 1 Use assistive device safely;Prevent bumping into environmental barriers (núñez/furniture);Utilize appropriate gait sequencing;Improve upright posture;Increase base of support;Increase step length;Pace activity Gait Deviations 1 Base of support - decreased;Saurav - decreased;Heel strike - decreased;Hip/knee flexion during swing phase - decreased;Scissoring;Shuffling;Stance time - decreased;Step length - dec reased;Turns - difficulty;Weight bearing through UE???s - increased;Weight shift - decreased;Posture - flexed Quality of Gait 1 festinating gait, improves with verbalization of BIG returns swiflty to festinating pattern w/o verbalization, 1 significant LOB requiring MOD A to correct during ambulatory turn,pt lifts and turns WW off floor w/o changing body position, maintaining narrow JULIEN, along with shuffling gait pattern, pt remains with increased knee flexion, kyphotic posture, verbal cues approx every 10' to remain inside WW Safe Environment End of Therapy Session Safe Environment End of Therapy Session Patient left in chair;Chair alarm in place and activated;Call light within reach;Overbed table within reach (sitter present on departure) Assessment Prognosis Fair Problem List Reduced mobility;Gait deviations;Decreased strength;Decreased range of motion;Decreased endurance;Impaired balance;Decreased coordination;Decreased cognition;Impaired judgement;Decreasedsafety awareness;Impaired tone;Abnormal muscle tone;Decreased active movement;Decreased midline orientation Barriers to Discharge Current Mobility Status;Home environment challenged;Decreased caregiver support;Decreased safety awareness;Cognition Plan Plan Continue with current plan;If this is the last note, consider this the discharge summary Recommendation/Plan PT Recommendation/Plan (S) Half-Way Facility Patient at high risk for Falls;Readmission;Injury due to decreased ability to care for self;Injury due to reduced functional status;Injury due to impaired cognition;Injury due to balance deficits;Injury at home as patient has not returned to prior level of function;Improper use of DME;Prolonged dependence for self care tasks Recommend SNF due to Risk of injury at home;Unable to safely care for self in the home;Skilled therapy needed to address care for self in the home;Skilled therapy needed to address functional deficits;Skilled therapy needed for patient to return to prior level of independence PT Frequency during current admission 2-3x/wk Treatment/Interventions during current admission Balance Training;Endurance training;Functional activity;Functional transfer training;Gait training;Neuromuscular re-education;Positioning;Range of steve on;Strengthening;Therapeutic activity;Therapeutic exercise;Transfer training PT Equipment Recommended Other (Comment) (pending progress/placement) Progress during current admission Progressing toward goals PT Evaluation Complete Yes Multi-Disciplinary Problems (from Physical Therapy) Active Problems Problem: PT Misc Start Date: 05/22/24 Goal Start Date Expected End Date End Date The pt. Will transfer sit to and from stand with modified IND. 05/22/24 05/29/24 -- Goal Start Date Expected End Date End Date The pt. Will transfer between the bed and chair with the WW and modified IND. 05/22/24 05/29/24 -- Goal Start Date Expected End Date End Date The pt. Will ambulate 150 feet with a WW and modified IND. 05/22/24 05/29/24 -- Goal Start Date Expected End Date End Date The pt. Will participate in standing balance activities to improve his ROMEO balance scale by 8 points or more. 05/22/24 05/29/24 -- Goal Start Date Expected End Date End Date The pt. Will go up/down 2 steps with 1 railing and modified IND. 05/22/24 05/29/24 -- Education: Patient has been educated on the role of PT, safety , mobility training, and home exercise program. Education completed via explanation and demonstration. Patient verbalized understanding and needs ongoing reinforcement Cosigned by Senait Garrido DPT at 05/29/2024 8:36 AM DEVOPS CONSULTANT PS CONSULTANT PS CONSULTANT * Courtney Wright, OT - 05/26/2024 2:33 PM CST Occupational Therapy 05/26/24 1513 General Session Type Treatment OT Received On 05/26/24 Safe Environment Arm band checked;Patient found sitting in chair;Gait belt utilized for all out of bed mobility Subjective Agreeable to Therapy Subjective Comment Pt is pleasant and cooperative. Family/Caregiver Present Yes (Dtr) Precautions Precautions Bed/Chair Alarm;Fall risk Pain Assessment Pain Assessment No/denies pain Pain Score 0 - No pain Clinical Progression Not changed Grooming Grooming: Where assessed Standing at sink Grooming: Level of assistance Minimum Assist Grooming: Assistance with Teeth care;Balance;Safety;Sequencing;Attending to task Room Mobility Room Mobility comment Completed simulated item collection in therapy gym with cones reaching outside center of gravity. Pt requires minimal assist for activity with use of walker. Transfer 1 Trials/Comments 1 Sit to stand minimal assist with cues for hand placement as pt wants to continue to pull up on walker. Pt ambulates in hallway and room with WW and minimal assist- pt walks far behind walker with a flexed posture and a shuffling gait. Is able to walk with bigger strides with cues but quickly returns to shuffling gait. Requires minimal assist for stand to sit d/t pt attempting toabandon walker and sitting before he is centered in front of chair. Cognition Cognition Comments Baselline dementia. Pt is pleasant and forgetful. 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;Decreased recall of recent events Current communication Appears Intact Orientation Oriented to person Following Commands Follows one step commands without difficulty Safety Judgment Decreased awareness of need for assistance Awareness of Errors Assistance required to identify errors made Insight Decreased awareness of deficits Compliance/Behavior Easy to engage Activity Tolerance Endurance Tolerates 30 min activity with multiple rests Activity Tolerance Comments Vitals post activity: HR 88, O2 99% Safe Environment End of Therapy Session Safe Environment End of Therapy Session Patient left in recliner;Chair alarm in place and activated;RN notified;Call light within reach;Overbed table within reach Assessment Prognosis Good Problem List Decreased safe judgment during ADL;Decreased endurance;Decreased balance;Decreased functional mobility;Decreased ADL independence;Decreased IADL independence Barriers to Discharge Current Mobility Status;Current ADL Status;Home environment challenged;Decreased caregiver support;Decreased safety awareness;Cognition Plan Plan Continue with current plan;If this is the last note, consider this the discharge summary Recommendation/Plan OT Recommendation (S) Half-Way Facility Patient at high risk for Falls;Readmission;Injury due to decreased ability to care for self;Injury due to reduced functional status;Injury due to impaired cognition;Injury due to balance deficits;Injury at home as patient has not returned to prior level of function;Developing impaired skin integrity ;Mismanagement of medications Recommend SNF due to Risk of injury at home;Unable to safely care for self in the home;Skilled therapy needed to address care for self in the home;Skilled therapy needed to address functional deficits;Skilled therapy needed for patient to return to prior level of independence OT Frequency during current admission 2-3x/wk Treatment/Interventions during current admission ADL/IADL retraining;Balance Training;Endurance training;Equipment eval/education;Functional activity;Functional mobility training;Functional transfer t raining;Strengthening;Therapeutic activity;Therapeutic exercise;Transfer training Progress during current admission Progressing toward goals OT Time Calculation OT Start Time 1433 OT Stop Time 1511 OT Time Calculation (min) 38 min Education: Patient has been educated on the role of OT, safety, precautions, ADL training, mobilitytraining, body mechanics, and use of adaptive equipment/DME. Education completed via verbal instruction. Patient needs ongoing reinforcement Multi-Disciplinary Problems (from Occupational Therapy) Active Problems Problem: OT Misc Start Date: 05/21/24 Goal Start Date Expected End Date End Date Pt will complete toileting including clothing management, hygiene, and transfer with SBA using adaptive techniques/equipment as needed. 05/21/24 05/28/24 -- Goal Start Date Expected End Date End Date Pt will complete grooming while standing at the sink with SBA using assistive devices as needed. 05/21/24 05/28/24 -- Goal Start Date Expected End Date End Date Pt will complete lower body dressing with SBA using adaptive equipment as needed. 05/21/24 05/28/24-- PS CONSULTANT * Javid Riddle, DO - 05/26/2024 1:34 PM CST Internal Medicine Daily Progress Note Gulshan remains medically stable for discharge but still has a sitter in place[facility] He will need to be sitter-free for 24hrs prior to discharge there. Objective Vitals: 24hr Min/Max: Temp Min: 36.6 ??C (97.9 ??F) Max: 36.9 ??C (98.4 ??F) Pulse Min: 70 Max: 77 BP Min: 130/89 Max: 147/63 Resp Min: 18 Max: 20 SpO2 Min: 97 % Max: 99 % Most Recent : Vitals: 05/26/24 1149 BP: 130/89 Pulse: 70 Resp: 20 Temp: 36.6 ??C (97.9 ??F) SpO2: 97% I/O last 2 completed shifts: In: 1680 [P.O.:1680] Out: 2650 [Urine:2650] I/O this shift: In: 960 [P.O.:960] Out: 450 [Urine:450] Physical Exam: General: Patient in no acute distress, alert HEENT: Normocephalic, atraumatic, sclera non-icteric Lungs: Normal respiratory effort Abd: soft, non-tender, non-distended Skin: No rash Extremities: No edema Neuro: No focal motor sensory deficits Lab/Radiology/Diagnostic Review: Recent Labs Lab Units 05/25/24 11205/24/[id number]/22/24 0334 05/21/24 1058 SODIUM mmol/L 135 138 135 < > 136 POTASSIUM PLASMA mmol/L 4.2 3.8 3.6 < > 4.6 CHLORIDE mmol/L 103 102 100 < > 98 CO2 mmol/L 23 24 23 < > 25 ANIONGAP mmol/L 9 12 12 < > 13 GLUCOSE mg/dL 108 111 100 < > 115 BUN SERUM mg/dL 19 18 22 < > 20 CREATININE mg/dL 0.99 1.06 0.97 < > 0.75* CALCIUM mg/dL 8.8 9.1 8.9 < > 9.4 ALBUMIN g/dL -- -- -- -- 3.9 ALK PHOS Units/L -- -- -- -- 55 ALT Units/L -- -- -- -- 25 AST Units/L -- -- -- -- 33 BILIRUBIN TOTAL mg/dL -- -- -- -- 0.6 < > = values in this interval not displayed. Recent Labs Lab Units 05/25/24 1128 05/24/2461105/23/24626 WBC K/cumm 5.5 4.2 5.0 HEMOGLOBIN g/dL 10.8* 11.4* 11.2* HEMATOCRIT % 32.1* 32.6* 32.0* PLATELETS K/cumm 203 209 202 Assessment: Principal Problem: AMS (altered mental status) Active Problems: Hypercholesterolemia Prostate cancer (HCC) 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 behavioral disturbance, psychotic disturbance, mood disturbance, or anxiety ([facility]) NPH (normal pressure hydrocephalus) ([facility]) Plan: Fall Altered Mental Status Dementia Known NPH s/p Drain Neurology consulted. Discussed with Dr. De La Vega Difficult to discern etiology with NPH and known underlying dementia Continue supportive measures Previous drain was discontinued 05/18 Laboratory data unremarkable Continue Aricept Added low dose Trazodone to assist with maintaining appropriate sleep/wake cycle Discontinue further lab draws Sitter remains in place making SNF placement difficult Dyslipidemia Atorvastatin 20mg Depression and Anxiety Lexapro 10mg BPH Proscar and Flomax VTE PPx: Lovenox Code Status: Full Code MDM: Low. No change to plan of care today Disposition: Medically stable for discharge Javid Riddle DO, MS, FACP, FACOI For patients or family members viewing this note through [employer] access: This note was written as a communication tool between healthcare providers and may contain technical language, terminology, and abbreviations that are difficult to interpret without advanced medical training. If you have questions or concerns regarding what is written in this note, please contact our office at . PS CONSULTANT * Modesta Pretty RD - 05/26/2024 10:38 AM CST NUTRITION ASSESSMENT Nutrition Status: Patient appears adequately nourished at this time. REASON FOR ASSESSMENT: Length of Stay Encounter Date: 05/26/24 10:38 AM Admission Date: 05/21/2024 LOS: 5 days HPI: Patient is a 84 y.o. male with hx of anxiety, asthma, GERD, dyslipidemia. Admitted with AMS (altered mental status) [R41.82] Objective Past Medical History: Diagnosis Date Anxiety Arthritis Asthma Cancer ([facility]/HCC) ([facility]) 2017? GERD (gastroesophageal reflux disease) Heart disease Hyperlipidemia Insomnia Osteoporosis Personal history of other diseases of the respiratory system Personal history of asthma - (Added by VIRLA Conv) Rheumatic fever Sleep apnea Diagnosed years ago - not sure if it's still pertinent Sleep difficulties Past Surgical History: Procedure Laterality Date [place] FLUORO GUIDED LUMBAR PUNCTURE Right 03/12/2023 FOOT SURGERY Foot Surgery - (Added by VIRAL Conv) LUMBAR DISC SURGERY Spinal Diskectomy Lumbar - (Added by VIRAL Conv) LUMBAR PUNCTURE WO INJECTION, DIAGNOSTIC N/A 05/15/2024 [place] TONSILLECTOMY PRIMARY/SECONDARY <AGE 14 Tonsillectomy - (Added by VIRAL Conv) PROSTATE CANCER GENE 3 (PCA3) SPINE SURGERY Social History Tobacco Use Smoking status: Former Types: Pipe Quit date: 11/28/1979 Years since quittin.5 Smokeless tobacco: Never Substance and Sexual Activity Drug use: Never Sexual activity: Not Currently control/protection: None Alcohol Use: Not At Risk (01/31/2024) AUDIT-C Frequency of Alcohol Consumption: Never Average Number of Drinks: Patient does not drink Frequency of Binge Drinking: Never MEDICATION/LAB REVIEW: Scheduled Meds: atorvastatin, 20 mg, oral, Daily budesonide-formoteroL, 2 puff, inhalation, BID (RT) docusate sodium, 100 mg, oral, BID donepeziL, 10 mg, oral, Nightly enoxaparin, 40 mg, subcutaneous, Daily-2100 escitalopram, 10 mg, oral, Daily finasteride, 5 mg, oral, Daily pantoprazole DR, 40 mg, oral, Daily tamsulosin, 0.4 mg, oral, Daily traZODone, 25 mg, oral, Nightly Continuous Infusions: PRN Meds: acetaminophen albuterol HFA bisacodyl EC OR bisacodyL hydrALAZINE ondansetron polyethylene glycol ramelteon Recent Labs Lab Units 05/25/24 1128 05/22/24 0334 05/21/24 1058 SODIUM mmol/L 135 < > 136 POTASSIUM PLASMA mmol/L 4.2 < > 4.6 CHLORIDE mmol/L 103 < > 98 CO2 mmol/L 23 < > 25 BUN SERUM mg/dL 19 < > 20 CREATININE mg/dL 0.99 < > 0.75* QTO-VUD-UUIPAHR mL/min/1.73 m2 76 < > 90 CALCIUM mg/dL 8.8 < > 9.4 ALBUMIN g/dL -- -- 3.9 < > = values in this interval not displayed. Recent Labs Lab Units 05/25/24 1128 05/24/24 0612 05/23/24 0627 05/22/24 0334 05/21/24 1058 GLUCOSE mg/dL 108 111 100 101 115 No results found for: ALT , AST , BILIRUBIN , ALKPHOS , LIPASE Lab Results Component Value Date HGBA1C 6.0 (H) 04/14/2016 HDL 39 (L) 02/28/2024 LDLCALC 103 07/27/2022 CHOL 154 02/28/2024 TRIG 148 02/28/2024 NURSING ASSESSMENT: Last BM Date: 05/25/24 (per cotton tipper RN, pt had several small bm's overnight) Bowel Sounds (All Quadrants): Present Jose Scale Score: 17 Skin Integrity: (Blanchable redness; Bruising) Vital Signs BP: 147/63 Temp: 36.6 ??C (97.9 ??F) Pulse: 77 Resp: 18 SpO2: 99 % Intake/Output Summary (Last 24 hours) at 05/26/2024 1038 Last data filed at 05/26/2024 0830 Gross per 24 hour Intake 1800 ml Output 3100 ml Net -1300 ml Adult Malnutrition Scoring Tool (MST) What diet do you follow at home?: regular Have You Recently Lost Weight Without Trying?: No Have you been eating poorly because of a decreased appetite?: No Malnutrition Screening Tool (MST) Score: 0 Within the past 12 months, you worried that your food would run out before you got the money to buymore.: Never true Within the past 12 months, the food you bought just didn't last and you didn't have money to get more.: Never true Anthropometrics Weight: 70.3 kg (155 lb) Admission Weight : 70.3 kg Weight Change: -0.22 kg (-0.50 lbs) IBW/kg (Calculated) : 75.3 kg Height: 177.8 cm (5' 10 ) Weight in (lb) to have BMI = 25: 173.9 BMI (Calculated): 22.2 Wt Readings from Last 10 Encounters: 05/21/24 70.3 kg (155 lb) 05/15/24 70.5 kg (155 lb 8 oz) 01/31/24 69.4 kg (153 lb) 01/26/24 69.9 kg (154 lb) 01/05/24 71 kg (156 lb 8 oz) 09/01/23 69.3 kg (152 lb 10.7 oz) 07/26/23 71.1 kg (156 lb 11.2 oz) 06/15/23 72.1 kg (159 lb) 03/12/23 72.5 kg (159 lb 12.8 oz) 02/08/23 72 kg (158 lb 9.9 oz) ESTIMATED NEEDS: Total Kcal/kg Estimated Needs : 1898.32 Kcal/k. Type of Weight Used for Estimated Kcals: Current Total Protein Estimated Needs (gm): 91.4 Protein Needs Based on g/k.3 Type of Weight Used for Estimated Protein : Current Dietary Orders (From admission, onward) Start Ordered 05/21/24 0858 Adult Diet Regular Diet effective now Question: ([facility]) Diet type Answer: Regular 05/21/24 0857 Allergies: Reviewed. IMPRESSION: Pt sitting in bedside chair at visit. Sitter nearby. Noted possible concerns for underlying dementia per provider note upon admissions. Pt reporting good appetite (sitter in agreement). Recent PO intakes 100% per chart. Noted stable weight ~155 lbs since July per chart. Pt lives alone at home. Family (daughter, son) and neighbor support. Utilizes ready-made meal delivery at home. Denying chewing/swallowing difficulty. Denying food/nutritional concerns or questions. Regular diet in place.No significant nutritional concerns at this time. Continue to follow per policy. AAIM ([facility]) MALNUTRITION ASSESSMENT: N/A NUTRITION FOCUSED PHYSICAL EXAM: Not clinically indicated, no concerns for malnutrition at this time. NUTRITION DIAGNOSIS: Nutrition Diagnosis 1: No nutrition issue at this time Related to: Acute illness/injury Evidenced by: Patient interview INTERVENTION(S): Summary: Follow up per policy GOAL(S): Continue adequate PO intakes MONITORING/EVALUATION: Appetite, PO intake, Plan of care, Labs PS CONSULTANT * Sakina Skinner DPT - 05/25/2024 3:27 PM CST Physical Therapy 05/25/24 1527 PT Last Visit Session Type Treatment PT Received On 05/25/24 Safe Environment Arm band checked;Patient found sitting in chair;Session completed in gym;Gait beltutilized for all out of bed mobility Subjective Agreeable to Therapy Subjective Comment pt is pleasantly confused,laughing & joking throughout session. At one pointwhile in therapy gym, he leans forward & conspiratorily whispers to PT, When you get a chance,take a look at that yessica in the room to my right. He's giving me the EVIL EYE! (pt had caught sightof himself in the therapy full-length mirror, and when he saw his reflection suspiciously looking at him around the edge of mirror, thought it was another man. He was able to be convinced after amoment that it was really himself, then says, Oh. Ok. then. ) Family/Caregiver Present Yes (daughter Dahiana is at bedside and supportive.) Precautions Precautions Bed/Chair Alarm;Fall risk Precaution Comments still with 1:1 sitter at bedside. Pain Assessment Pain Assessment 0-10 Pain Score 0 - No pain Clinical Progression Not changed (denies pain throughout session.) Cognition Overall Cognitive Status Impaired Orientation Oriented to person (cannot come up with place, year, or month. Was able to state the year is twenty four but when prompted to name the entire year, he cannot.) Compliance/Behavior Easy to engage Static Standing Balance Static Standing-Balance Support Bilateral upper extremity supported Static Standing-Level of Assistance Minimum assistance Dynamic Standing Balance Dynamic Standing-Balance Support Bilateral upper extremity supported Dynamic Standing-Level of Assistance Minimum assistance Seated Seated-Exercise Comments completed Sit-stand repetitions x 10 reps, needing between minimal to occasional moderate assistance due to retropulsion as he pushes up to stance. He relies upon UE support on chair armrests. Bed Mobility 1 Bed Mobility Comments 1 not observed, pt remains OOB throughout session. Transfer 1 Transfer From 1 Sit Transfer Type 1 To and from Transfer to 1 Stand;Chair with arms Transfer Level of Assistance 1 Minimum Assist;Moderate Assist Trials/Comments 1 assist level varied this session, at times pt is able to do better shifting his weight anteriorly in order to come to stance, other times demo's posterior balance loss/retropulsion as he attempts shifting upwards. Ambulation 1 Distance (ft) 1 125' x 2 (seated rest between walks) Surface 1 Level tile Device 1 Wheeled walker Assistance 1 Minimum Assist Gait: Requires assist with 1 Maintaining balance Gait Deviations 1 Heel strike - decreased;Posture - flexed;Step length - decreased Quality of Gait 1 shifling/festinating steps, flexed posture, poor foot clearance bilaterally. Responds well to cues for exagerated foot clearance and increased stride, but then reverts after a hort time. He immediately reverts to shufflign when distracted or when approaching obstacles, demonstrating a very Parkinsonian pattern of gait. Demo's good tolerance of distance this session, however. Other Comments Other PT Comments (S) Pt participates well this session, with improved gait distance tolerance & overall functional levels. Continues to require assistance for all basic mobility, however, and heremains completely appropriate for SNF placement with skilled therapies at discharge. Safe Environment End of Therapy Session Safe Environment End of Therapy Session Patient left in chair;Chair alarm in place and activated;Call light within reach;Overbed table within reach Assessment Problem List Gait deviations;Impaired balance;Decreased coordination;Decreased cognition Plan Plan Continue with current plan;If this is the last note, consider this the discharge summary Recommendation/Plan PT Recommendation/Plan (S) Half-Way Facility Recommend SNF due to Risk of injury at home;Unable to safely care for self in the home;Skilled therapy needed for patient to return to prior level of independence;Skilled therapy needed to address functional deficits PT Equipment Recommended Wheeled walker (pendign progress.) Progress during current admission Progressing toward goals PT Time Calculation PT Start Time 1446 PT Stop Time 1527 PT Time Calculation (min) 41 min Education: Patient and family has been educated on the role of PT, safety , precautions, mobility training, and home exercise program. Education completed via explanation, teach back, and demonstration. Patient and family verbalized understanding, demonstrated understanding, and needs ongoing reinforcement. Multi-Disciplinary Problems (from Physical Therapy) Active Problems Problem: PT Misc Start Date: 05/22/24 Goal Start Date Expected End Date End Date The pt. Will transfer sit to and from stand with modified IND. 05/22/24 05/29/24 -- Goal Start Date Expected End Date End Date The pt. Will transfer between the bed and chair with the WW and modified IND. 05/22/24 05/29/24 -- Goal Start Date Expected End Date End Date The pt. Will ambulate 150 feet with a WW and modified IND. 05/22/24 05/29/24 -- Goal Start Date Expected End Date End Date The pt. Will participate in standing balance activities to improve his ROMEO balance scale by 8 points or more. 05/22/24 05/29/24 -- Goal Start Date Expected End Date End Date The pt. Will go up/down 2 steps with 1 railing and modified IND. 05/22/24 05/29/24 -- PS CONSULTANT * Courtney Wright, OT - 05/25/2024 1:53 PM CST Occupational Therapy 05/25/24 1473 General Session Type Treatment OT Received On 05/25/24 Safe Environment Arm band checked;Patient found sitting in chair;Gait belt utilized for all out of bed mobility Subjective Agreeable to Therapy Subjective Comment Pt is pleasant and cooperative. Says a few jokes throughout the session. Family/Caregiver Present No (1:1 sitter in room) Precautions Precautions Bed/Chair Alarm;Fall risk Pain Assessment Pain Assessment 0-10 Pain Score 0 - No pain Clinical Progression Not changed Static Standing Balance Static Standing-Comment/# of Minutes Pt stands at sink for 4 min with minimal assist before asking to sit and rest. Grooming Grooming: Where assessed Standing at sink Grooming: Level of assistance Minimum Assist Grooming: Assistance with Teeth care (Needs to sit and rest after standing a few minutes. Assist for balance. Assist for initiation.) LE Dressing LE Dressing: Where assessed Chair LE Dressing: Level of assistance Minimum Assist LE Dressing: Assistance with Don/doff L sock;Don/doff R sock Toileting Toileting: Where assessed (male purewick in place) Transfer 1 Trials/Comments 1 Sit to stand minimal assist. Pt ambulates short distance in room from recliner to/from bathroom with WW and minimal assist- pt walks with short shuffling gait. Completes transfers with minimal assist with cues for safe body positioning and walker use. Exercise Tools Other Exercise Tool 1 BUE exercise with 2# dumbell. Shoulder flex/ext (states unable to do with right- completes 5 reps AROM instead), elbow flex/ext 12 rep 2x with rest break. Cognition Cognition Comments baseline dementia- able to follow commands well. Arousal/Alertness Alert;Appropriate responses to stimuli Attention Span Attends with cues to redirect;Distractability Memory Decreased short term memory;Decreased senior living memory;Decreased recall of recent events Current communication Appears Intact Orientation Oriented to person Following Commands Follows one step commands with increased time Safety Judgment Decreased awareness of need for assistance Awareness of Errors Assistance required to identify errors made;Assistance required to correct errors made Insight Decreased awareness of deficits Problem Solving Assistance required to identify errors made Compliance/Behavior Easy to engage Activity Tolerance Endurance Tolerates 30 min activity with multiple rests Activity Tolerance Comments Vitals post activity: HR 76, O2 99%, BP 137/64 Safe Environment End of Therapy Session Safe Environment End of Therapy Session Patient left in recliner;Chair alarm in place and activated;RN notified;Call light within reach;Overbed table within reach Assessment Prognosis Good Problem List Decreased safe judgment during ADL;Decreased endurance;Decreased balance;Decreased functional mobility;Decreased IADL independence;Decreased ADL independence Barriers to Discharge Current Mobility Status;Current ADL Status;Home environment challenged;Decreased caregiver support;Cognition Plan Plan Continue with current plan;If this is the last note, consider this the discharge summary Recommendation/Plan OT Recommendation (S) Half-Way Facility Patient at high risk for Falls;Readmission;Injury due to decreased ability to care for self;Injury due to reduced functional status;Injury due to impaired cognition;Injury due to balance deficits;Injury at home as patient has not returned to prior level of function;Developing impaired skin integrity ;Mismanagement of medications Recommend SNF due to Risk of injury at home;Unable to safely care for self in the home;Skilled therapy needed to address care for self in the home;Skilled therapy needed to address functional deficits;Skilled therapy needed for patient to return to prior level of independence OT Frequency during current admission 2-3x/wk Treatment/Interventions during current admission ADL/IADL retraining;Balance Training;Bed mobility;Endurance training;Equipment eval/education;Functional activity;Functional mobility training;Functional transfer training;Strengthening;Therapeutic activity;Therapeutic exercise;Transfer training Progress during current admission Progressing toward goals OT Time Calculation OT Start Time 1353 OT Stop Time 1432 OT Time Calculation (min) 39 min Education: Patient has been educated on the role of OT, safety, precautions, ADL training, mobilitytraining, home exercise program, body mechanics, and use of adaptive equipment/DME. Education completed via verbal instruction. Patient verbalized understanding and needs ongoing reinforcement Multi-Disciplinary Problems (from Occupational Therapy) Active Problems Problem: OT Misc Start Date: 05/21/24 Goal Start Date Expected End Date End Date Pt will complete toileting including clothing management, hygiene, and transfer with SBA using adaptive techniques/equipment as needed. 05/21/24 05/28/24 -- Goal Start Date Expected End Date End Date Pt will complete grooming while standing at the sink with SBA using assistive devices as needed. 05/21/24 05/28/24 -- Goal Start Date Expected End Date End Date Pt will complete lower body dressing with SBA using adaptive equipment as needed. 05/21/24 05/28/24-- PS CONSULTANT * Javid Rdidle, DO - 05/25/2024 12:22 PM CST Internal Medicine Daily Progress Note Gulshan's sleep/wake cycle is still erratic. He slept for hours during the day yesterday. Sitter remains in place as he remains impulsive and trying to climb out of bed. Awaiting SNF placement. He is medically stable for discharge. Objective Vitals: 24hr Min/Max: Temp Min: 36.7 ??C (98.1 ??F) Max: 36.8 ??C (98.2 ??F) Pulse Min: 70 Max: 75 BP Min: 128/58 Max: 166/93 Resp Min: 16 Max: 20 SpO2 Min: 96 % Max: 99 % Most Recent : Vitals: 05/25/24 1154 BP: 140/68 Pulse: 72 Resp: 20 Temp: 36.8 ??C (98.2 ??F) SpO2: 99% I/O last 2 completed shifts: In: - Out: 1350 [Urine:1350] I/O this shift: In: - Out: 480 [Urine:480] Physical Exam: General: Patient in no acute distress, alert and interactive HEENT: Normocephalic, atraumatic, sclera non-icteric Lungs: Normal respiratory effort Abd: soft, non-tender, non-distended Skin: No rash Extremities: No edema Neuro: No focal motor sensory deficits Lab/Radiology/Diagnostic Review: Recent Labs Lab Units 05/25/24 1128 05/24/24 0612 05/23/24 0627 05/22/24 0334 05/21/24 1058 SODIUM mmol/L 135 138 135 < > 136 POTASSIUM PLASMA mmol/L 4.2 3.8 3.6 < > 4.6 CHLORIDE mmol/L 103 102 100 < > 98 CO2 mmol/L 23 24 23 < > 25 ANIONGAP mmol/L 9 12 12 < > 13 GLUCOSE mg/dL 108 111 100 < > 115 BUN SERUM mg/dL 19 18 22 < > 20 CREATININE mg/dL 0.99 1.06 0.97 < > 0.75* CALCIUM mg/dL 8.8 9.1 8.9 < > 9.4 ALBUMIN g/dL -- -- -- -- 3.9 ALK PHOS Units/L -- -- -- -- 55 ALT Units/L -- -- -- -- 25 AST Units/L -- -- -- -- 33 BILIRUBIN TOTAL mg/dL -- -- -- -- 0.6 < > = values in this interval not displayed. Recent Labs Lab Units 05/25/24 1128 05/24/24 0612 05/23/24 0627 WBC K/cumm 5.5 4.2 5.0 HEMOGLOBIN g/dL 10.8* 11.4* 11.2* HEMATOCRIT % 32.1* 32.6* 32.0* PLATELETS K/cumm 203 209 202 Assessment: Principal Problem: AMS (altered mental status) Active Problems: Hypercholesterolemia Prostate cancer (HCC) 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 behavioral disturbance, psychotic disturbance, mood disturbance, or anxiety (HCC) NPH (normal pressure hydrocephalus) ([facility]) Plan: Fall Altered Mental Status Dementia NPH Neurology consulted. Discussed with Dr. De La Vega Difficult to discern etiology with NPH and known underlying dementia Continue supportive measures Previous drain was discontinued 05/18 Laboratory data unremarkable Continue Aricept Added low dose Trazodone to assist with maintaining appropriate sleep/wake cycle Discontinue further lab draws Sitter remains in place making SNF placement difficult HYPOnatremia Previously incorrectly documented as hypernatremia Regardless, Na currently 138 - resolved Dyslipidemia Atorvastatin 20mg Depression and Anxiety Lexapro 10mg BPH Proscar and Flomax VTE PPx: Lovenox Code Status: Full Code MDM: Moderate Disposition: Medically stable for discharge Javid Riddle DO, MS, FACP, FACOI For patients or family members viewing this note through [employer] access: This note was written as a communication tool between healthcare providers and may contain technical language, terminology, and abbreviations that are difficult to interpret without advanced medical training. If you have questions or concerns regarding what is written in this note, please contact our office at . PS CONSULTANT * Javid Riddle DO - 05/24/2024 2:14 PM CST Internal Medicine Daily Progress Note [place] is sitting up in bed eating breakfast. He has no acute concerns this morning. Sitter remainsin place. Discussed with Neurology, who recommend Trazodone to assist with sleep/wake cycle. PT/OT recommend SNF placement, but his daughter is considering bringing him home instead. Objective Vitals: 24hr Min/Max: Temp Min: 36.3 ??C (97.3 ??F) Max: 36.8 ??C (98.2 ??F) Pulse Min: 70 Max: 74 BP Min: 109/56 Max: 159/84 Resp Min: 18 Max: 18 SpO2 Min: 96 % Max: 99 % Most Recent : Vitals: 05/24/24 1116 BP: 109/56 Pulse: 73 Resp: 18 Temp: 36.6 ??C (97.9 ??F) SpO2: 97% I/O last 2 completed shifts: In: 220 [P.O.:220] Out: 2049 [Urine:2049] I/O this shift: In: - Out: 100 [Urine:100] Physical Exam: General: Patient in no acute distress, alert and interactive HEENT: Normocephalic, atraumatic, sclera non-icteric Lungs: Normal respiratory effort Abd: soft, non-tender, non-distended Skin: No rash Extremities: No edema Neuro: No focal motor sensory deficits Lab/Radiology/Diagnostic Review: Recent Labs Lab Units 05/24/24 0612 05/23/24 0627 05/22/24 0334 05/21/24 1058 SODIUM mmol/L 138 135 133* 136 POTASSIUM PLASMA mmol/L 3.8 3.6 3.3 4.6 CHLORIDE mmol/L 102 100 96* 98 CO2 mmol/L 24 23 23 25 ANIONGAP mmol/L 12 12 14 13 GLUCOSE mg/dL 111 100 101 115 BUN SERUM mg/dL 18 22 23 20 CREATININE mg/dL 1.06 0.97 0.77* 0.75* CALCIUM mg/dL 9.1 8.9 9.1 9.4 ALBUMIN g/dL -- -- -- 3.9 ALK PHOS Units/L -- -- -- 55 ALT Units/L -- -- -- 25 AST Units/L -- -- -- 33 BILIRUBIN TOTAL mg/dL -- -- -- 0.6 Recent Labs Lab Units 05/24/24 0612 05/23/24 0627 05/22/24 0334 WBC K/cumm 4.2 5.0 5.8 HEMOGLOBIN g/dL 11.4* 11.2* 11.6* HEMATOCRIT % 32.6* 32.0* 32.9* PLATELETS K/cumm 209 202 197 Assessment: Principal Problem: AMS (altered mental status) Active Problems: Hypercholesterolemia Prostate cancer (HCC) 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 behavioral disturbance, psychotic disturbance, mood disturbance, or anxiety (HCC) NPH (normal pressure hydrocephalus) ([facility]) Plan: Fall Altered Mental Status Dementia NPH Neurology consulted. Discussed with Dr. De La Vega Difficult to discern etiology with NPH and known underlying dementia Continue supportive measures Previous drain was discontinued 05/18 Laboratory data unremarkable Continue Aricept Added low dose Trazodone to assist with maintaining appropriate sleep/wake cycle HYPOnatremia Previously incorrectly documented as hypernatremia Regardless, Na currently 138 - resolved Dyslipidemia Atorvastatin 20mg Depression and Anxiety Lexapro 10mg BPH Proscar and Flomax VTE PPx: Lovenox Code Status: Full Code MDM: Moderate Disposition: Will need SNF but currently has sitter. This will delay discharge. Daughter trying to decide if she is able to care for him at home. Javid Riddle DO, MS, FACP, FACOI For patients or family members viewing this note through [employer] access: This note was written as a communication tool between healthcare providers and may contain technical language, terminology, and abbreviations that are difficult to interpret without advanced medical training. If you have questions or concerns regarding what is written in this note, please contact our office at . PS CONSULTANT * Senait Garrido DPT - 05/24/2024 9:48 AM CST Physical Therapy 05/24/24 0948 PT Last Visit Session Type Treatment PT Received On 05/24/24 Safe Environment Arm band checked;Patient found in supine;Session completed in gym;Gait belt utilized for all out of bed mobility Subjective Agreeable to Therapy Subjective Comment The pt states that he is ready to go. Once in standing and participating in walking, he reports feeling fatigued. He asks, Is it normal to be this tired? Family/Caregiver Present No Precautions Precautions Bed/Chair Alarm;Fall risk Activity Tolerance Activity Tolerance Comments At the end of the session: HR: 75 bpm, SAO2: 112/49 Pain Assessment Pain Assessment 0-10 Pain Score 0 - No pain Clinical Progression Not changed Cognition Cognition Comments baseline dementia Arousal/Alertness Alert;Appropriate responses to stimuli Orientation (The pt. asks me what the name of this place is several times during the session.) Following Commands Follows one step commands with repetition Compliance/Behavior Easy to engage Balance Balance Yes Static Sitting Balance Static Sitting-Balance Support Bilateral upper extremity supported;Feet supported Static Sitting-Sitting Surface Bed Static Sitting-Level of Assistance Distant supervision Static Standing Balance Static Standing-Comment/# of Minutes The pt. stands statically with his feet together, and is unable to let go of the WW. The pt. then stands with his feet approximately 5 inches apart from each other and maintains his balance witout UE support for 5-7 second increments before reaching for the WW to steady himself. The pt. participates in this task for several minutes. Dynamic Standing Balance Dynamic Standing-Comments The pt. alternately taps a 6 inch box with bilateral UE support for approximately 20 seconds before announcing that he can't do it. The pt. is encouraged to continue, but ultimately states that he needs to sit down. Seated Seated-Exercises Lower extremity;Specific exercises Seated-Exercise Type Ankle pumps;Hip flexion;Knee flex;ABduction;Long arc quads Equipment Cuff weight;Theraband (2 lbs and blue theraband) Reps/Sets 15 Seated-Motion AROM Bed Mobility 1 Bed Mobility From 1 Supine Bed Mobility Type 1 To Bed Mobility to 1 Edge of bed Level of Assistance 1 Minimum Assist Transfers Transfer Yes Transfer 1 Transfer From 1 Sit Transfer Type 1 To and from Transfer to 1 Stand Transfer Device 1 Wheeled walker Transfer Level of Assistance 1 Moderate Assist Trials/Comments 1 The pt. requires cueing for hand placement during the sit to stand transition. The pt. demonstrates insufficient weight shift anteriorly during the sit to stand transfer. Transfers 2 Transfer From 2 Bed Transfer Type 2 To Transfer to 2 Wheelchair Technique 2 Stand pivot Transfer Device 2 (The pt. reaches for the arm rest of the WC to transfer.) Transfer Level of Assistance 2 Moderate Assist Ambulation 1 Distance (ft) 1 30 x 3 Surface 1 Level tile Device 1 Wheeled walker Other Apparatus 1 Wheelchair follow Assistance 1 Moderate Assist Gait: Requires assist with 1 Maintaining balance Gait: Requires verbal cues to 1 Improve upright posture;Increase step length Gait Deviations 1 Shuffling Ambulation Comments 1 The pt. continues to demonstrate short shuffling steps during gait. He is able to follow a cue to take larger steps, but quickly reverts back to taking short shuffling steps. The pt. demonstrates decreased saurav and decreased heel strike bilaterally. Safe Environment End of Therapy Session Safe Environment End of Therapy Session Patient left in recliner;Call light within reach;Overbed table within reach (sitter present) Assessment Prognosis Fair Problem List Gait deviations;Decreased strength;Decreased endurance;Impaired balance;Decreased coordination;Decreased cognition;Impaired judgement;Decreased safety awareness;Postural deficit Barriers to Discharge Current Mobility Status Plan Plan Continue with current plan;If this is the last note, consider this the discharge summary Recommendation/Plan PT Recommendation/Plan (S) Half-Way Facility Patient at high risk for Falls;Readmission;Injury due to decreased ability to care for self;Injury due to reduced functional status;Injury due to impaired cognition;Injury due to balance deficits;Injury at home as patient has not returned to prior level of function;Improper use of DME Recommend SNF due to Risk of injury at home;Unable to safely care for self in the home;Skilled therapy needed to address care for self in the home;Skilled therapy needed to address functional deficits;Skilled therapy needed for patient to return to prior level of independence PT Equipment Recommended (pending progress) Progress during current admission Progressing toward goals PT Time Calculation PT Start Time 0948 PT Stop Time 1041 PT Time Calculation (min) 53 min Education: Patient has been educated on the role of PT, safety , and precautions. Education completed via explanation and demonstration. Patient verbalized understanding and requires ongoing reinforcement due to his cognitive deficits. Multi-Disciplinary Problems (from Physical Therapy) Active Problems Problem: PT Misc Start Date: 05/22/24 Goal Start Date Expected End Date End Date The pt. Will transfer sit to and from stand with modified IND. 05/22/24 05/29/24 -- Goal Start Date Expected End Date End Date The pt. Will transfer between the bed and chair with the WW and modified IND. 05/22/24 05/29/24 -- Goal Start Date Expected End Date End Date The pt. Will ambulate 150 feet with a WW and modified IND. 05/22/24 05/29/24 -- Goal Start Date Expected End Date End Date The pt. Will participate in standing balance activities to improve his ROMEO balance scale by 8 points or more. 05/22/24 05/29/24 -- Goal Start Date Expected End Date End Date The pt. Will go up/down 2 steps with 1 railing and modified IND. 05/22/24 05/29/24 -- PS CONSULTANT * Max Escalante NP - 05/23/2024 3:44 PM CST Neurology Daily Progress Note Chief complaint: AMS, falls, repeat hosp Interval History: Patient was resting comfortably in his chair at the time of examination. Daughter is present at bedside. Patient was initially evaluated by Dr. Dia over the weekend on 05/21/24. History is obtained from records and daughter at bedside. Patient presented with altered mental status and noted 2 years ofmemory problems that started subacutely and has progressed. Over the past year, his mobility has decreased with shuffling gait and intermittent tremor and his hands. During the examination 05/20/2024, Dr. Dia was considering starting a low dose of Sinemet to his current medication regimen. However, patient was drowsy and able to fully participate in examination. Sinemet was deferred at this time. Overall, patient remains pleasantly confused. He was unable to recall the facility that we are currently out. He is unable to communicate the correct date or current president. Daughter reports he has had difficulty sleeping while he has been hospitalized. He is currently requiring a sitter. There are no new neurological symptoms. Current Facility-Administered Medications Medication Dose Route Frequency Provider Last Rate Last Admin acetaminophen (TYLENOL) tablet 650 mg 650 mg oral Q6H PRN Marguerite Wolfe MD 650 mg at 05/23/24 0919 albuterol HFA (PROVENTIL HFA,VENTOLIN HFA,PROAIR HFA) 90 mcg/actuation inhaler 2 puff 2 puff inhalation Q4H PRN (RT) Marguerite Wolfe MD atorvastatin (LIPITOR) tablet 20 mg 20 mg oral Daily Marguerite Wolfe MD 20 mg at 05/23/24 0919 bisacodyl EC (DULCOLAX EC) tablet 10 mg 10 mg oral Daily PRN Eddie Acosta DO Or bisacodyL (DULCOLAX) suppository 10 mg 10 mg rectal Daily PRN Eddie Acosta DO budesonide-formoteroL (SYMBICORT) 80-4.5 mcg/actuation inhaler 2 puff 2 puff inhalation BID (RT) Marguerite Wolfe MD 2 puff at 05/22/242032 docusate sodium (COLACE) capsule 100 mg 100 mg oral BID Marguerite Wolfe MD 100 mg at 05/22/24 0900 donepeziL (ARICEPT) tablet 10 mg 10 mg oral Nightly Marguerite Wolfe MD 10 mg at 05/22/24 193 enoxaparin (LOVENOX) syringe 40 mg 40 mg subcutaneous Daily-2100 Marguerite Wolfe MD 40 mg at 937 escitalopram (LEXAPRO) tablet 10 mg 10 mg oral Daily Marguerite Wolfe MD 10 mg at 05/23/24 09 finasteride (PROSCAR) tablet 5 mg 5 mg oral Daily Marguerite Wolfe MD 5 mg at 05/23/24 09 hydrALAZINE (APRESOLINE) injection 10 mg 10 mg intravenous Q4H PRN Eddie Acosta DO 10 mg at 05/21/24 214 ondansetron (ZOFRAN) injection 4 mg 4 mg intravenous Q6H PRN Javid Riddle DO pantoprazole DR (PROTONIX) extended release tablet 40 mg 40 mg oral Daily Marguerite Wolfe MD 40 mg at107/23/23 09 polyethylene glycol (MIRALAX) packet 17 g 17 g oral Daily PRN Eddie Acosta DO ramelteon (ROZEREM) tablet 8 mg 8 mg oral Nightly PRN Eddie Acosta DO 8 mg at 05/23/24 0347 tamsulosin (FLOMAX) extended release capsule 0.4 mg 0.4 mg oral Daily Marguerite Wolfe MD 0.4 mg at 05/23/24 0919 Vitals: 24hr Min/Max: Temp Min: 36.3 ??C (97.3 ??F) Max: 37 ??C (98.6 ??F) Pulse Min: 68 Max: 76 BP Min: 109/53 Max: 160/80 Resp Min: 16 Max: 18 SpO2 Min: 96 % Max: 99 % Most Recent: Vitals: 05/23/24 1514 BP: 109/53 Pulse: 73 Resp: 18 Temp: 36.3 ??C (97.3 ??F) SpO2: 96% Neurological exam: Neurological Exam Mental Status Awake and alert. Oriented only to person. Speech is normal. Language is fluent with no aphasia. Cranial Nerves CN II: Visual acuity is normal. Visual chapa full to confrontation. CN III, IV, : Extraocular movements intact bilaterally. Pupils equal round and reactive to light bilaterally. CN V: Facial sensation is normal. CN VII: Full and symmetric facial movement. Motor No fasciculations present. Strength is 5/5 throughout all four extremities. There was mild rigidity noted in bilateral lower extremities. However, patient was not fully able to relax. Sensory Sensation is intact to light touch, pinprick, vibration and proprioception in all four extremities. Lab/Radiology/Diagnostic Review: IR Lumbar Puncture, Diagnostic incl Fluoro Guidance Narrative: EXAMINATION: Diagnostic fluoroscopically guided lumbar puncture [...] MD, PHD XR chest 1 view (Portable) Narrative: EXAMINATION: 1 view chest radiograph Impression: Lungs are well-expanded and clear. Heart size is normal. Atherosclerotic changes of the aorta. Electronically signed by: Jim Anne NP [facility] Office: Cosigned by Kristal De La Vega DO at 05/23/2024 4:22 PM DEVOPS CONSULTANT PS CONSULTANT PS CONSULTANT Associated attestation - Kristal De La Vega DO - 05/23/2024 4:22 PM DEVOPS CONSULTANT I have seen and examined the patient on the day of service. I have reviewed and confirmed the history, physical exam, laboratory, and radiographic data with Max Escalante NP, as documented in her note below. I agree with the findings and plan of care as described. Consult Details: The patient's symptoms are suggestive of a parkinsonism such as Lewy body dementia. His initial presentation was cognitive impairment and over time he has developed Parkinson's features. In the differential would be Parkinson's disease, Lewy body dementia, or Alzheimer's disease with extrapyramidalfeatures. On Aricept at this time. He was not able to tolerate memantine in the past. Per daughter,the patient has been improving during this hospital stay. However, he is still very fatigued, disengaged, and too weak to walk. Per bedtime sitter, he has not slept all night last night, may take 2-3hour naps throughout the day. The patient was previously referred to get a sleep study, but it has not yet been done. He these PT in the past, but refused doing any additional outpatient PT recently. PHYSICAL EXAM: As per documentation below - specifically with notable findings of: Appearing fatigued, but most answers questions appropriately. Hypomimia, hypophonia, cogwheel rigidity (L>RUE), no significant tremor appreciated. Some decrement on finger tapping. Otherwise, unremarkable. No get assessed today. History of Alzheimer's dementia Gait abnormalities Recommendations: - Agree with current management - Consider adding trazodone 25 mg q.h.s. to help with insomnia - Sleep hygiene - Delirium precautions - May consider starting low dose of Sinemet - Agree with Aricept for his cognitive impairment. - PT/OT/ST - Neuro checks - Contact Neurology if any new questions or concerns Care plan discussed with the patient and his daughter. Kristal De La Vega DO [facility] My total encounter time on 05/23/2024 was 60 minutes which was spent in the activities documented inthe note. This includes time spent prior to the visit and after the visit in direct care of the patient. This time does not include time spent in any separately reportable services. * Javid Riddle DO - 05/23/2024 3:10 PM CST Internal Medicine Daily Progress Note Gulshan is restless this morning with a sitter at bedside. He remains impulsive and trying to get out of bed. Neurosurgery recommends neurologic consultation. PT/OT recommend SNF placement. Objective Vitals: 24hr Min/Max: Temp Min: 36.4 ??C (97.5 ??F) Max: 37 ??C (98.6 ??F) Pulse Min: 68 Max: 76 BP Min: 135/66 Max: 160/80 Resp Min: 16 Max: 18 SpO2 Min: 97 % Max: 99 % Most Recent : Vitals: 05/23/24 1150 BP: 146/76 Pulse: 68 Resp: 16 Temp: 36.8 ??C (98.2 ??F) SpO2: 97% I/O last 2 completed shifts: In: 320 [P.O.:320] Out: 1400 [Urine:1400] I/O this shift: In: 220 [P.O.:220] Out: - Physical Exam: General: Patient in no acute distress HEENT: Normocephalic, atraumatic, sclera non-icteric Lungs: Normal respiratory effort Abd: soft, non-tender, non-distended Skin: No rash Extremities: No edema Lab/Radiology/Diagnostic Review: Recent Labs Lab Units 05/23/2462605/22/24 0334 05/21/24 1058 SODIUM mmol/L 135 133* 136 POTASSIUM PLASMA mmol/L 3.6 3.3 4.6 CHLORIDE mmol/L 100 96* 98 CO2 mmol/L 23 23 25 ANIONGAP mmol/L 12 14 13 GLUCOSE mg/dL 100 101 115 BUN SERUM mg/dL 22 23 20 CREATININE mg/dL 0.97 0.77* 0.75* CALCIUM mg/dL 8.9 9.1 9.4 ALBUMIN g/dL -- -- 3.9 ALK PHOS Units/L -- -- 55 ALT Units/L -- -- 25 AST Units/L -- -- 33 BILIRUBIN TOTAL mg/dL -- -- 0.6 Recent Labs Lab Units 05/23/24 0605/22/24 0334 05/19/24 0147 WBC K/cumm 5.0 5.8 9.1 HEMOGLOBIN g/dL 11.2* 11.6* 12.5* HEMATOCRIT % 32.0* 32.9* 36.7* PLATELETS K/cumm 202 197 192 Assessment: Principal Problem: AMS (altered mental status) Active Problems: Hypercholesterolemia Prostate cancer (HCC) 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 behavioral disturbance, psychotic disturbance, mood disturbance, or anxiety (HCC) NPH (normal pressure hydrocephalus) ([facility]) Plan: Fall Altered Mental Status Dementia NPH Neurology consulted today Difficult to discern etiology with NPH and known underlying dementia Continue supportive measures Previous drain was discontinued 05/18 Laboratory data unremarkable Continue Aricept HYPOnatremia Previously incorrectly documented as hypernatremia Regardless, Na currently 135 - resolved Dyslipidemia Atorvastatin 20mg Depression and Anxiety Lexapro 10mg BPH Proscar and Flomax VTE PPx: Lovenox Code Status: Full Code MDM: Moderate Disposition: Will need SNF but currently has sitter. This will delay discharge Javid Riddle, DO, MS, FACP, FACOI For patients or family members viewing this note through [employer] access: This note was written as a communication tool between healthcare providers and may contain technical language, terminology, and abbreviations that are difficult to interpret without advanced medical training. If you have questions or concerns regarding what is written in this note, please contact our office at . PS CONSULTANT * Nestor Bragg OT - 05/23/2024 2:18 PM CST Occupational Therapy 05/23/24 1418 General Session Type Treatment OT Received On 05/23/24 Safe Environment Arm band checked;Patient found sitting in chair Subjective Comment Pt. agreeable to therapy Family/Caregiver Present Yes Precautions Precautions Bed/Chair Alarm;Fall risk Pain Assessment Pain Score 0 - No pain Clinical Progression Not changed Grooming Grooming: Where assessed Standing at sink;Sitting at sink (Pt. stood for oral care & part of shaving, then took seated rest while continuing to shave. Pt. stood to finish shaving, then took one final seated rest break at sink.) Grooming: Level of assistance Moderate Assist Grooming: Assistance with Teeth care;Shaving;Wash/dry face LE Dressing LE Dressing: Where assessed Chair LE Dressing: Level of assistance Minimum Assist LE Dressing: Assistance with Don/doff R sock;Don/doff L sock Toileting Toileting: Where assessed (just completed with PCT prior to OT arrival) Transfer 1 Trials/Comments 1 Sit to/from stand via stand aid minimum assist (completed x3 occasions). Pt. transported recliner to/from sink via stand aid dependently Transfers 2 Trials/Comments 2 Sit to/from stand via ww minimum/moderate assist. Once in standing with support of 2 ww, pt. required minimum-moderate assist from OT to maintain static standing balance. While standing, worked on posture and marching in place 1 set x 10 reps. Transfers 3 Trials/Comments 3 OT elevates bed, raises bedrails, turns pt.'s chair to face bed. Sit to/from stand then completed x2 occasions with minimum assist. Once upright, pt. utilized bedrails for support (more stable than 2 ww). In this position, pt. once again works on posture & marching in place - pt. still with posterior lean, though this lessens to a degree with activity. Pt. reports fatigue end of session Cognition Arousal/Alertness Alert;Appropriate responses to stimuli Attention Span Attends with cues to redirect Memory Decreased short term memory Current communication Appears Intact Orientation Oriented to person Following Commands Follows one step commands with repetition Safety Judgment Impulsive Awareness of Errors Assistance required to identify errors made;Assistance required to correct errors made;Decreased awareness of errors Insight Decreased awareness of deficits Problem Solving Assistance required to identify errors made;Assistance required to generate solutions;Assistance required to implement solutions Compliance/Behavior Easy to engage Safe Environment End of Therapy Session Safe Environment End of Therapy Session Patient left in recliner;Chair alarm in place and activated;RN notified;Call light within reach Assessment Problem List Decreased safe judgment during ADL;Decreased cognition;Decreased endurance;Decreased balance;Decreased functional mobility;Decreased ADL independence;Decreased IADL independence;Gait Plan Plan If this is the last note, consider this the discharge summary Recommendation/Plan OT Recommendation (S) Half-Way Facility Patient at high risk for Falls;Readmission;Injury due to decreased ability to care for self;Injury due to reduced functional status;Injury due to impaired cognition;Injury due to balance deficits;Injury at home as patient has not returned to prior level of function;Prolonged dependence for self care tasks;Developing secondary complications: poor health management Recommend SNF due to Risk of injury at home;Unable to safely care for self in the home;Skilled therapy needed to address care for self in the home;Skilled therapy needed to address functional deficits;Skilled therapy needed for patient to return to prior level of independence Education: Patient has been educated on the role of OT, safety, precautions, ADL training, mobilitytraining, and body mechanics. Education completed via verbal instruction. Patient needs ongoing reinforcement Multi-Disciplinary Problems (from Occupational Therapy) Active Problems Problem: OT Misc Start Date: 05/21/24 Goal Start Date Expected End Date End Date Pt will complete toileting including clothing management, hygiene, and transfer with SBA using adaptive techniques/equipment as needed. 05/21/24 05/28/24 -- Goal Start Date Expected End Date End Date Pt will complete grooming while standing at the sink with SBA using assistive devices as needed. 05/21/24 05/28/24 -- Goal Start Date Expected End Date End Date Pt will complete lower body dressing with SBA using adaptive equipment as needed. 05/21/24 05/28/24-- PS CONSULTANT * Senait Garrido DPT - 05/22/2024 2:32 PM CST Physical Therapy Evaluation 05/22/24 0092 General Chart Reviewed Yes Session Type Evaluation PT Received On 05/22/24 Safe Environment Arm band checked;Patient found sitting in chair;Gait belt utilized for all out of bed mobility Subjective Agreeable to Therapy Subjective Comment The pt. thinks that he is moving about the same as he always does. The pt's sitter reports that the pt's daughter reports that the pt. is normally much more mobile and that he walks without a device. Additional Pertinent History The pt. Is an 84 year old female who presents to [facility] as a direct admit from [facility] with falls and altered mental status. A CT of the head reveals no acute fracture or intracranial finding. Per neurology, the pt's symptoms are suggestive of a parkinsonism such as Lewy body dementia vs. Vascular dementia. A low dose of Sinemet is being considered. PMH: OA, asthma, cervical radiculopathy, polyneuropathy, Alzheimer's disease, normal pressure hydrocephalus, DLD, recent (05/15/24) work up at [facility] for normal pressure hydrocephalus, prostate CA Family/Caregiver Present No Physical Therapy-Patient Goal The pt. does not state a goal Precautions Precautions Bed/Chair Alarm;Fall risk (sitter) Home Living Type of Home House Home Layout One level;Able to live on main level with bedroom/bathroom Home Access Stairs to enter with rails Entrance Stairs-Number of Steps 3 Home Mobility Equipment-Available None Home Mobility Equipment-Currently Using None Prior Function Level of [place] Independent with ADLs;Independent functional transfers;Independent with ambulation;Needs assistance with homemaking Lives With Alone Receives Help From Family Driving No Fall within the last 6 months Yes Fall within the last 6 months comment The pt. fell at the SNF, leading to this admission. He got out of bed on his own. Pain Assessment Pain Assessment 0-10 Pain Score 0 - No pain Clinical Progression Not changed Cognition Arousal/Alertness Alert;Appropriate responses to stimuli Following Commands Follows one step commands with repetition Compliance/Behavior Easy to engage Coordination Movements are Fluid and Coordinated 0 (impaired rapid alternating pronation supination of the UEs: impaired rate, rhythm, and accuracy) Heel to Chan Impaired;Right;Left;Moderate;Decreased rhythm;Decreased accuracy Balance Tests Balance Tests Yes Romeo Balance Scale 1. Sitting to Standing 0 2. Standing Unsupported 0 3. Sitting with Back Unsupported but Feet Supported on Floor or on a Stool 3 4. Standing to Sitting 0 5. Transfers 1 6. Standing Unsupported with Eyes Closed 0 7. Standing Unsupported with Feet Together 0 8. Reach Forward with Outstretched Arm While Standing 0 9. Child Custody Evaluator Object from Floor from a Standing Position 0 10. Turning to Look Behind Over Left and Right Shoulders While Standing 0 11. Turn [address] Foot on Step or Stool While Standing Unsupported 0 13. Standing Unsupported One Foot in Front 0 14. Standing on One Leg 0 Roemo Balance Score 4 Balance Balance Yes Static Sitting Balance Static Sitting-Balance Support Bilateral upper extremity supported;Feet supported Static Sitting-Sitting Surface Chair Static Sitting-Level of Assistance Distant supervision Static Standing Balance Static Standing-Balance Support Bilateral upper extremity supported Static Standing-Standing Surface Floor Static Standing-Level of Assistance Moderate assistance;Maximum assistance Static Standing-Comment/# of Minutes The pt. tends to lean posteriorly with the WW Bed Mobility 1 Bed Mobility Comments 1 The pt. was seated in the recliner upon my arrival. Transfers Transfer Yes Transfer 1 Transfer From 1 Sit Transfer Type 1 To and from Transfer to 1 Stand Transfer Device 1 Wheeled walker Transfer Level of Assistance 1 Moderate Assist;Maximum Assist Trials/Comments 1 The pt. performs sit to and from stand x 2 trials this session. He has a tendencyto lean posteriorly during the sit to stand transition. Transfers 2 Transfer From 2 Stand Transfer Type 2 To Transfer to 2 Chair with arms Technique 2 Stand pivot Transfer Device 2 Wheeled walker Transfer Level of Assistance 2 Moderate Assist;Maximum Assist Trials/Comments 2 The pt. requires assistance to maneuver the WW around to the chair. He attempts to dive into the chair while still several steps away from the chair. Ambulation 1 Distance (ft) 1 30 x 2 Surface 1 Level tile Device 1 Wheeled walker Assistance 1 Moderate Assist Gait: Requires assist with 1 Maintaining balance Gait: Requires verbal cues to 1 Use assistive device safely;Improve upright posture Gait Deviations 1 Shuffling Ambulation Comments 1 The pt ambulates with parkinsonian gait with short shuffling steps, stepping in place at times, and difficulty advancing in tight spaces. At one point during gait, the pt. stepsin place while his WW is too far out in front of his body, causing him to become very unsteady. He demonstrates difficulty with turns and while going through the doorway. RLE Assessment RLE Assessment X Strength RLE R Hip Flexion 4/5 R Hip Extension 5/5 R Hip ABduction 5/5 R Hip ADduction 5/5 R Knee Flexion 5/5 R Knee Extension 5/5 R Ankle Dorsiflexion 5/5 R Ankle Plantar Flexion 4+/5 LLE Assessment LLE Assessment X Strength LLE L Hip Flexion 4/5 L Hip Extension 5/5 L Hip ABduction 5/5 L Hip ADduction 5/5 L Knee Flexion 5/5 L Knee Extension 5/5 L Ankle Dorsiflexion 5/5 L Ankle Plantar Flexion 4+/5 Safe Environment End of Therapy Session Safe Environment End of Therapy Session Patient left in recliner (sitter in room at the end of the session) Assessment Prognosis Fair Problem List Reduced Moblity;Debility;Gait deviations;Decreased strength;Decreased endurance;Impaired balance;Decreased coordination;Decreased cognition;Impaired judgement;Decreased safety awareness;Postural deficit Barriers to Discharge Current Mobility Status Plan Plan Plan of care initiated;If this is the last note, consider this the discharge summary Recommendation/Plan PT Recommendation/Plan (S) Half-Way Facility Patient at high risk for Falls;Readmission;Injury due to decreased ability to care for self;Injury due to reduced functional status;Injury due to balance deficits;Injury due to impaired cognition Recommend SNF due to Risk of injury at home;Unable to safely care for self in the home;Skilled therapy needed to address care for self in the home;Skilled therapy needed to address functional deficits;Skilled therapy needed for patient to return to prior level of independence PT Frequency during current admission 2-3x/wk Treatment/Interventions during current admission Balance Training;Bed mobility;Endurance training;Equipment eval/education;Functional activity;Functional transfer training;Graded handling;Gait trainin g;Neuromuscular re-education;Positioning;Stair training;Strengthening;Therapeutic activity;Therapeutic exercise;Transfer training PT Equipment Recommended (pending progress) PT - OK to Discharge No PT Evaluation Complete Yes PT Time Calculation PT Start Time 1432 PT Stop Time 1455 PT Time Calculation (min) 23 min Education: Patient has been educated on the role of PT and mobility training. Education completed via explanation and demonstration. Patient verbalized understanding and needs ongoing reinforcement due to cognitive deficits. Multi-Disciplinary Problems (from Physical Therapy) Active Problems Problem: PT Misc Start Date: 05/22/24 Goal Start Date Expected End Date End Date The pt. Will transfer sit to and from stand with modified IND. 05/22/24 05/29/24 -- Goal Start Date Expected End Date End Date The pt. Will transfer between the bed and chair with the WW and modified IND. 05/22/24 05/29/24 -- Goal Start Date Expected End Date End Date The pt. Will ambulate 150 feet with a WW and modified IND. 05/22/24 05/29/24 -- Goal Start Date Expected End Date End Date The pt. Will participate in standing balance activities to improve his ROMEO balance scale by 8 points or more. 05/22/24 05/29/24 -- Goal Start Date Expected End Date End Date The pt. Will go up/down 2 steps with 1 railing and modified IND. 05/22/24 05/29/24 -- PS CONSULTANT * Marguerite Wolfe MD - 05/22/2024 9:05 AM CST Daily Progress Subjective Chief complaint of Interval History: Bedside sitter present Overnight impulsive getting out of bed My visit this a.m. restless does answer majority my questions following commands moving extremitiesdenies any acute distress forgetful at times able to tell me his name year unable to tell me where he is but is able to tell me his daughter's name is address No fevers or chills has been tolerating p.o. diet denies any bowel bladder issues no skin changes rashes Objective Vitals: 24hr Min/Max: Temp Min: 36.3 ??C (97.3 ??F) Max: 36.7 ??C (98.1 ??F) Pulse Min: 76 Max: 83 BP Min: 148/70 Max: 188/87 Resp Min: 16 Max: 18 SpO2 Min: 97 % Max: 99 % Intake/Output Summary (Last 24 hours) at 05/22/2024 0905 Last data filed at 05/21/2024 1815 Gross per 24 hour Intake 480 ml Output -- Net 480 ml Most Recent : Vitals: 05/22/24 0803 BP: Pulse: Resp: Temp: SpO2: 97% I/O last 2 completed shifts: In: 480 [P.O.:480] Out: - No intake/output data recorded. Physical Exam: General: No acute distress. Alert and oriented x3 Heart: RRR. No rub or murmur Lungs: CTAB. No wheeze or rhonci. Abdomen: Soft, non-tender, non-distended. No rebounding, guarding, or rigidity. Extremities: No cyanosis or edema. Eyes: Extraocular muscles in tact. No scleral icterus noted. Skin: No rash noted. Lab/Radiology/Diagnostic Review: Laboratory review: Lab results in the last 24 hours: Recent Results (from the past 24 hours) CBC with auto differential Collection Time: 05/22/24 3:34 AM Result Value Ref Range WBC 5.8 3.8 - 9.9 K/cumm Hgb 11.6 (L) 13.0 - 17.5 g/dL Hct 32.9 (L) 38.9 - 50.3 % Plt 197 150 - 400 K/cumm MPV 9.9 9.1 - 12.3 fL RBC 3.50 (L) 4.30 - 5.80 M/cumm MCV 94.0 81.3 - 96.4 fL MCH 33.1 27.1 - 33.3 pg MCHC 35.3 32.3 - 35.7 g/dL RDW CV 12.0 11.1 - 14.9 % RDW SD 41.3 35.7 - 48.1 fL NRBC abs 0.00 0.00 - 0.01 K/cumm Basic metabolic panel Collection Time: 05/22/24 3:34 AM Result Value Ref Range Sodium 133 (L) 135 - 145 mmol/L Potassium, pl 3.3 3.3 - 4.9 mmol/L Chloride 96 (L) 97 - 110 mmol/L CO2 23 22 - 32 mmol/L Anion gap 14 2 - 15 mmol/L BUN 23 6 - 25 mg/dL Creatinine 0.77 (L) 0.80 - 1.30 mg/dL Glucose 101 70 - 199 mg/dL Calcium 9.1 8.5 - 10.3 mg/dL Differential, auto Collection Time: 05/22/24 3:34 AM Result Value Ref Range Neutrophil abs 4.1 1.5 - 6.5 K/cumm Imm gran abs 0.0 0.0 - 0.1 K/cumm Lymphocyte abs 1.0 0.8 - 3.3 K/cumm Monocyte abs 0.6 0.2 - 0.8 K/cumm Eosinophil abs 0.1 0.0 - 0.5 K/cumm Basophil abs 0.1 0.0 - 0.1 K/cumm Neutrophil pct 70.6 % Imm gran pct 0.2 % Lymphocyte pct 16.8 % Monocyte pct 9.4 % Eosinophil pct 2.1 % Basophil pct 0.9 % eGFR Collection Time: 05/22/24 3:34 AM Result Value Ref Range eGFR 89 >=60 mL/min/1.73 m2 Assessment/Plan Principal Problem: AMS (altered mental status) -fall recurrent disorientation -altered mental status Blood pressure noted to be elevated Labs unremarkable Paper records from outside facility however CT head CT cervical spine no acute fractures noted. UA unremarkable See above for recent hospitalization at [facility] for lumbar drain. Drain was DC 05/18 patient was recommended follow-up with Neurosurgery in 2 weeks patient was DC torehab Neurosurgery consulted follow-up further recommendations follow-up eval imaging completed outside facilit will follow-up after review of imaging y Labs centrally unremarkable afebrile normal white count Outside facility Alzheimer's LP lab reported unremarkable Consult neurology for assistance medications reviewed concern for parkinsonian some such as Lewy body dementia consider starting low-dose Sinemet will defer to Neurology Continue supportive care DVT prophylaxis per Neurosurgery bowel bladder delirium precautions PT OT Continue with Aricept delirium precautions PT OT consider Seroquel p.r.n. -hypernatremia mild Check urine lytes Dyslipidemia Lipitor Depression anxiety Lexapro BPH Proscar Flomax These fluid and electrolyte abnormalities are being treated, evaluated or monitored: No fluid or electrolyte disorders DVT prophylaxis POC daughter Dominga PT OT recommend snf facility Social work Code status full code per daughter confirmed CODE STATUS: Full Code ESTIMATED LENGTH OF STAY grade 2 midnight stay PS CONSULTANT * Micheal Alston MD - 05/21/2024 7:55 PM CST Neurosurgery brief note Saw and examined Mr. Johnston. Briefly, 84M who was recently admitted to [facility] under Dr. Herrera for NPH workup with lumbar drain trial. Discussed patient with Dr. Herrera and examined patient's chart. Recent workup was negative for NPH (in fact patient ROMEO score declined with drainage). Pt now presented to OSH ER after reported fall at rehab facility. OSH head CT reportedly negative (not available for my review). Pt transferred to [facility] due to concern for AMS. On my exam pt is oriented x3 (choicefor year). Needs neurology/medicine workup for AMS and then disposition planning. No acute interventions or follow up planned from neurosurgical perspective as pt has no neurosurgical needs at present. Micheal Alston MD PS CONSULTANT * Dallin Alexandria Tyler, OT - 05/21/2024 1:28 PM CST Occupational Therapy Evaluation 05/21/24 1328 General Chart Reviewed Yes Session Type Evaluation OT Received On 05/21/24 Safe Environment Arm band checked;Gait belt utilized for all out of bed mobility;Patient found in supine;Session completed bedside Subjective Agreeable to Therapy Additional Pertinent History 84-year-old male history of anxiety asthma GERD dyslipidemia obstructive sleep apnea. He is a direct admit from [facility] for chief complaint of unspecified altered mental status. Pt with recent [facility] admission for lumbar drain and NPH evaluation. Pt was discharged from [facility] to SNF and presented back to hospital now for ongoing symptoms. Family/Caregiver Present Yes (daughter present at start of session, grandchildren and great grand child present briefly mid-session) Occupational Therapy-Patient Goal To return home at PLOF Precautions Precautions Bed/Chair Alarm;Fall risk Home Living Type of Home House Home Layout One level;Performs ADLs on one level Home Access Stairs to enter with rails Entrance Stairs-Number of Steps 3 Bathroom Shower/Tub Tub/shower unit Bathroom Toilet Standard Bathroom Equipment Shower chair Home Mobility Equipment-Available None Home Mobility Equipment-Currently Using None Prior Function Level of [place] Independent with ADLs;Independent functional transfers;Independent with ambulation;Needs assistance with homemaking Lives With Alone Receives Help From Family Driving No ADL Assistance Independent Instrumental ADL (IADL) Assistance Needs assistance (Daughters complete IADLs) Fall within the last 6 months Yes Fall within the last 6 months comment Pt fell at SNF leading to this admission - got out of bed without notifying nursing staff. Additionally a fall at home due to water on floor Grooming Grooming: Where assessed Supine, bed Grooming: Level of assistance Minimum Assist;Maximal Verbal Cues Grooming: Assistance with Wash/dry face LE Dressing LE Dressing: Where assessed Sitting;Edge of bed LE Dressing: Level of assistance Maximum Assist LE Dressing: Assistance with Don/doff R sock;Don/doff L sock Toileting Toileting: Where assessed Supine, bed (Pt has loose stool in bed) Toileting: Level of assistance Dependent Toileting: Assistance with Perineal hygiene;Posterior;Safety Room Mobility Room Mobility comment Not safe to complete this date Pain Assessment Pain Assessment No/denies pain Activity Tolerance Endurance Tolerates 10 - 20 min activity with multiple rests Activity Tolerance Comments Pre OT: 97 O2, 79 HR, 114/48 BP Vision - Complex Assessment Vision Comments Pt reports no recent changes in vision. Cognition Cognition Comments Baseline dementia, daughter reports his cognition is worse than baseline Arousal/Alertness Lethargic;Alert (Pt's alertness waxes/wanes throughout session) Attention Span Attends with cues to redirect;Difficulty attending to directions;Difficulty dividingattention;Distractability Current communication (Pt mumbles, sentences not always appropriate for situation) Orientation Oriented to person Following Commands Follows one step commands with repetition (Follows commands about 1/3 of time) Safety Judgment Decreased awareness of need for safety Awareness of Errors Decreased awareness of errors Insight Decreased awareness of deficits Problem Solving Assistance required to identify errors made;Assistance required to generate solutions;Assistance required to implement solutions Compliance/Behavior Easy to engage Perseveration Present - physical;Mild (fixated on socks) Bed Mobility 1 Bed Mobility Comments 1 Supine <> edge of bed with moderate assist at trunk and legs for force production + max verbal cues + head of bed elevated to approx 30* Transfer 1 Trials/Comments 1 Sit <> stand from edge of bed with max assist + verbal/tactile cues for hand placement/sequencing. Pt unable to find balance despite verbal/tactile cues from therapist. Significant posterior lean + noted toe extension during stand. Attempted x3, on third attempt pt's feet begin to shuffle in front of him causing an uncontrolled return to bed, OT provides max assist for safe return to seated edge of bed. RUE Assessment RUE Assessment WFL LUE Assessment LUE Assessment WFL Other Comments Comments Significant time in session spent providing personal care following BM. Safe Environment End of Therapy Session Safe Environment End of Therapy Session Patient left supine in bed;Bed alarm in place and activated;Call light within reach;Overbed table within reach;Bed in lowest position with wheels locked Assessment Prognosis Good Problem List Decreased cognition;Decreased endurance;Decreased balance;Decreased functional mobility;Decreased ADL independence;Poor/Decreased functional positioning;Gait;Decreased safe judgment during ADL Barriers to Discharge Current Mobility Status;Current ADL Status;Cognition;Decreased safety awareness Plan Plan Plan of care initiated;If this is the last note, consider this the discharge summary Recommendation/Plan OT Recommendation (S) Half-Way Facility Patient at high risk for Falls;Readmission;Injury due to decreased ability to care for self;Injury due to reduced functional status;Injury due to impaired cognition;Injury due to balance deficits;Injury at home as patient has not returned to prior level of function;Developing impaired skin integrity;Cognitive decline due to decreased social participation;Mismanagement of medications;Prolonged dependence for self care tasks;Developing secondary complications: poor health management Recommend SNF due to Risk of injury at home;Skilled therapy needed to address care for self in the home;Unable to safely care for self in the home;Skilled therapy needed to address functional deficits;Skilled therapy needed for patient to return to prior level of independence OT Frequency during current admission 2-3x/wk Treatment/Interventions during current admission ADL/IADL retraining;Balance Training;Endurance training;Functional activity;Functional transfer training;Functional mobility training;Positioning;Strengthening;Therapeutic activity;Therapeutic exercise;Transfer training OT Evaluation Complete Yes Multi-Disciplinary Problems (from Occupational Therapy) Active Problems Problem: OT Misc Start Date: 05/21/24 Goal Start Date Expected End Date End Date Pt will complete toileting including clothing management, hygiene, and transfer with SBA using adaptive techniques/equipment as needed. 05/21/24 05/28/24 -- Goal Start Date Expected End Date End Date Pt will complete grooming while standing at the sink with SBA using assistive devices as needed. 05/21/24 05/28/24 -- Goal Start Date Expected End Date End Date Pt will complete lower body dressing with SBA using adaptive equipment as needed. 05/21/24 05/28/24-- Education: Patient has been educated on the role of OT, safety, ADL training, and mobility training. Education completed via verbal instruction. Patient demonstrates no evidence of learning PS CONSULTANT documented in this encounter H&P Notes * Marguerite Wolfe MD - 05/21/2024 8:03 AM CST DATE OF SERVICE: 05/21/2024 PRIMARY CARE PHYSICIAN: Sohan Rojas MD SUBJECTIVE: Patient is a 84 y.o. male with chief complaint of falls altered mental status HPI: Majority history is obtained from patient's chart review recent hospitalizations at [facility] ER documentation etc. 84-year-old male history of anxiety asthma GERD dyslipidemia obstructive sleep apnea. He is a direct admit from [facility] for chief complaint of unspecified altered mental status. Briefly patient was admitted at [facility] on 05/15/2024 chief complaint to rule [...] Daughter present at bedside states prior to [facility] admission for lumbar drain and NPH [...] back to hospital now for ongoing symptoms .reveiwed [facility] records,- CT head no acute fracture intracranial finding CT cervical spine no fracture dislocation or locked facet is detected. ABG pH 7.4 pCO2 37 PO2 74 UA outside facility UDS negative Past Medical History: Diagnosis Date Anxiety Arthritis Asthma Cancer (CMS/HCC) ([facility]) 2018? GERD (gastroesophageal reflux disease) Heart disease Hyperlipidemia Insomnia Osteoporosis Personal history of other diseases of the respiratory system Personal history of asthma - (Added by TW Conv) Rheumatic fever Sleep apnea Diagnosed years ago - not sure if it's still pertinent Sleep difficulties Past Surgical History: Procedure Laterality Date FL FLUORO GUIDED LUMBAR PUNCTURE Right 03/12/2023 FOOT SURGERY Foot Surgery - (Added by TW Conv) LUMBAR DISC SURGERY Spinal Diskectomy Lumbar - (Added by TW Conv) LUMBAR PUNCTURE WO INJECTION, DIAGNOSTIC N/A 05/15/2024 [place] TONSILLECTOMY PRIMARY/SECONDARY <AGE 12 Tonsillectomy - (Added by TW Conv) PROSTATE CANCER GENE 3 (PCA3) SPINE SURGERY Allergies Allergen Reactions Memantine Delusions Increased confusion [...] Stroke Other Stroke Syndrome - (Added by TW Conv) Tuberculosis Mother Family history of tuberculosis - (Added by TW Conv) Arthritis Mother Hypertension Mother Stroke Mother No Known Problems Father No Known Problems Daughter No Known Problems Son Alzheimer's disease Maternal Grandmother Memory loss Maternal Grandmother Alzheimer's disease Paternal Grandmother Memory loss Paternal Grandmother Prior to Admission medications Medication Sig Start Date End Date Taking? Authorizing Provider terbinafine (LamiSIL) 250 mg tablet Take 1 tablet (250 mg total) by mouth daily 05/01/24 Yes ProviderYolanda MD acetaminophen (TYLENOL) 325 mg tablet Take 2 tablets (650 mg total) by mouth every 4 (four) hours as needed for pain 05/19/24 Merline Rapp NP albuterol HFA (PROVENTIL HFA,VENTOLIN HFA,PROAIR HFA) 90 mcg/actuation inhaler Inhale 2 puffs every4 (four) hours as needed for wheezing 07/27/22 Sohan Rojas MD atorvastatin (LIPITOR) 20 mg tablet TAKE 1 TABLET BY MOUTH EVERY DAY 02/28/24 Sohan Rojsa MD Breo Ellipta 100-25 mcg/dose diskus inhaler INHALE 1 PUFF BY MOUTH EVERY DAY 04/28/23 Sohan Rojas MD cholecalciferol, vitamin D3, 1,000 unit tablet,chewable ProviderYolanda MD cranberry extract 200 mg capsule Take 2 capsules by mouth 3 (three) times a day 03/10/16 Yolanda Melo MD dicl[address] (VOLTAREN) 75 mg EC tablet Take 1 tablet (75 mg total) by mouth 2 (two) times a day HOLD THIS MEDICATION UNTIL YOU FOLLOW UP WITH NEUROSURGERY 05/19/24 Merline Rapp NP docusate sodium (COLACE) 100 mg capsule Take 1 capsule (100 mg total) by mouth 2 (two) times a day 05/19/24 Merline Rapp NP donepeziL (ARICEPT) 10 [...] UP WITH NEUROSURGERY 05/19/24 Merline Rapp NP omega 3-yss-iub-fish oil 360-1,200 mg capsule,delayed release(DR/EC) Take 1 capsule by mouth daily HOLD THIS MEDICATION UNTIL YOU FOLLOW UP WITH NEUROSURGERY 05/19/24 Merline Rapp NP omeprazole (PriLOSEC) 20 mg capsule TAKE 1 CAPSULE BY MOUTH EVERY DAY 03/02/24 Sohan Rojas MD senna (SENOKOT) 8.6 mg tablet Take 1 tablet by mouth 2 (two) times a day 05/19/24 05/19/25 Merline Rapp NP tamsulosin (FLOMAX) 0.4 mg extended release capsule Take 1 capsule (0.4 mg total) by mouth daily 09/23/22 07/26/23 Sohan Rojas MD vitamin b complex (Vitamins B Complex) tablet Take 1 tablet by mouth daily ProviderYolanda MD vitamin E (AQUASOL E) 1,000 unit capsule Take 5 capsules (5,000 Units total) by mouth daily HOLD THIS MEDICATION UNTIL YOU FOLLOW UP WITH NEUROSURGERY 05/19/24 Merline Rapp NP Sodium Fluoride 5000 Dry Mouth 1.1 % paste 07/23/23 05/21/24 Yolanda Melo MD traMADoL (ULTRAM) 50 mg tablet TAKE 1 TABLET BY MOUTH EVERY 6 HOURS NEEDED FOR PAIN X 5 DAYS 12/28/23 05/21/24 Yolanda Melo MD triamcinolone (KENALOG) 0.1 % cream PLEASE SEE ATTACHED FOR DETAILED DIRECTIONS 05/21/24 Yolanda Melo MD Review of Systems Review of Systems OBJECTIVE: Vitals: Arrival Vitals [05/21/24 043] Temp 36.6 ??C (97.9 ??F) Pulse 71 Resp 18 BP (!) 194/84 SpO2 99 % Temp src Oral Heart Rate Source Patient Position BP Location FiO2 (%) Most Recent : Vitals: 05/21/243 05/21/24 06 BP: (!) 194/84 157/79 Pulse: 71 Resp: 18 Temp: 36.6 ??C (97.9 ??F) TempSrc: Oral SpO2: 99% Physical exam: General Appearance: Alert, cooperative, no distress, developed, well nourished Head: Normocephalic, without obvious abnormality, Eyes: PERRL, conjunctiva/corneas clear, EOM's intact,anicteric Throat: mucous membranes moist Neck: trachea midline, no carotid bruit or JVD Back: Symme, ROM normal, no CVA tenderness Lungs: Clear to auscultation bilaterally, respirations unlabored Cardiovascular: Regular rate and rhythm, S1 and S2 normal, no murmur, rub or gallop, no edema, pulses 2+ and symmetric to all extremeties Abdomen: Soft, non-tender, bowel sounds active all four quadrants, no masses, no organomegaly, non-distended Extremities: Extremities normal, atraumatic, no cyanosis or edema Skin: Skin color, texture, turgor normal, no rashes, lesions or bruising Neurologic: Alert & oriented x 4, CNII-XII intact. Normal strength, sensation and reflexes throughout Psychosocial: Normal affect and mood Lab/Radiology/Diagnostic Review: No results found for this or any previous visit (from the past 24 hours). ASSESSMENT/PLAN: Active Problems: No Active Problems: There are no active problems currently on the Problem List. Please update the Problem List and refresh. -fall recurrent disorientation -altered mental status Blood pressure noted to be elevated Labs pending Paper records from outside facility however CT head CT cervical spine no acute fractures noted. Unclear P was performed outside facility? See above for recent hospitalization at [facility] for lumbar drain. Drain was DC 05/18 patient was recommended follow-up with Neurosurgery in 2 weeks patient was DC torehab Neurosurgery consulted follow-up further recommendations follow-up eval imaging completed outside facilit will follow-up after review of imaging y Labs centrally unremarkable afebrile normal white count Outside facility Alzheimer's LP lab reported unremarkable Consult neurology for assistance medications Continue supportive care DVT prophylaxis per Neurosurgery bowel bladder delirium precautions PT OT Continue with Aricept delirium precautions PT OT consider Seroquel p.r.n. Dyslipidemia Lipitor Depression anxiety Lexapro BPH Proscar Flomax These fluid and electrolyte abnormalities are being treated, evaluated or monitored: No fluid or electrolyte disorders DVT prophylaxis POC daughter Dominga PT OT Social work Code status full code per daughter confirmed CODE STATUS: Full Code ESTIMATED LENGTH OF STAY PS CONSULTANT documented in this encounter Consult Notes * Bella Dia MD - 05/21/2024 11:54 AM CSTAssociated Order(s): IP CONSULT TO NEUROLOGY Images from the original note were not included. Neurology Consult Referring Physician: Dr. Wolfe Reason for Consult: ams, falls, repeat hosp MEDICAL DECISION MAKING: Impression: Cognitive impairment Gait impairment. Plan: The patient's symptoms are suggestive of a parkinsonism such as Lewy body dementia. His initial presentation was cognitive impairment and over time he has developed Parkinson's features. In the differential would be Alzheimer's disease with extrapyramidal features. He reports no medications which can have extrapyramidal side effects. Vascular dementia is also a possibility. I reviewed the MRI from the outside facility and it does not appear that the enlarged ventricles is out of proportion to the degree of atrophy. Consider starting low dose of Sinemet. He was too drowsy to fully participate in the exam so we will hold off on initiating this medication until he can be better assessed. PT/OT and speech therapy. Agree with Aricept for his cognitive impairment. He was not able to tolerate memantine in the past SUMMARY: HPI: Gulshan Johnston is a 84 y.o. male with chief complaint of altered mental status. Briefly, the patient has a history of anxiety, asthma, GERD, hyperlipidemia, obstructive sleep apnea and was transferred from outside hospital because of 2 years of memory problems. This started subacutely and has progressed over time. He also has mobility difficulties for last year with what the family describes as a shuffling gait. The family has also noticed an intermittent tremor in his hands. He was transferred to [facility] because of concern about normal pressure hydrocephalus. Neurosurgery is seeing the patient. Per outside records the patient did have a lumbar drain that was removed on 05/18/2024 and revealed no improvement in patient's symptoms. Please see their notes for full details. Current Facility-Administered Medications Medication Dose Route Frequency Provider Last Rate Last Admin acetaminophen (TYLENOL) tablet 650 mg 650 mg oral Q6H PRN Marguerite Wolfe MD albuterol HFA (PROVENTIL HFA,VENTOLIN HFA,PROAIR HFA) 90 mcg/actuation inhaler 2 puff 2 puff inhalation Q4H PRN (RT) Marguerite Wolfe MD atorvastatin (LIPITOR) tablet 20 mg 20 mg oral Daily Marguerite Wolfe MD 20 mg at 05/21/24 0937 bisacodyl EC (DULCOLAX EC) tablet 10 mg 10 mg oral Daily PRN Eddie Acosta DO Or bisacodyL (DULCOLAX) suppository 10 mg 10 mg rectal Daily PRN Eddie Acosta DO budesonide-formoteroL (SYMBICORT) 80-4.5 mcg/actuation inhaler 2 puff 2 puff inhalation BID (RT) Marguerite Wolfe MD 2 puff at 05/21/24 0837 docusate sodium (COLACE) capsule 100 mg 100 mg oral BID Marguerite Wolfe MD 100 mg at 05/21/24 0937 donepeziL (ARICEPT) tablet 10 mg 10 mg oral Nightly Marguerite Wolfe MD enoxaparin (LOVENOX) syringe 40 mg 40 mg subcutaneous Daily-2100 Marguerite Wolfe MD escitalopram (LEXAPRO) tablet 10 mg 10 mg oral Daily Marguerite Wolfe MD 10 mg at 05/21/24 0937 finasteride (PROSCAR) tablet 5 mg 5 mg oral Daily Marguerite Wolfe MD 5 mg at 05/21/24 0937 hydrALAZINE (APRESOLINE) injection 10 mg 10 mg intravenous Q4H PRN Eddie Acosta DO 10 mg at 05/21/[address] (PROTONIX) extended release tablet 40 mg 40 mg oral Daily Marguerite Wolfe MD 40 mg at107/21/23 0937 polyethylene glycol (MIRALAX) packet 17 g 17 g oral Daily PRN Eddie Acosta DO prochlorperazine (COMPAZINE) tablet 5 mg 5 mg oral Q6H PRN Eddie Acosta DO Or prochlorperazine (COMPAZINE) injection 5 mg 5 mg intravenous Q6H PRN Eddie Acosta DO ramelteon (ROZEREM) tablet 8 mg 8 mg oral Nightly PRN Eddie Acosta, tamsulosin (FLOMAX) extended release capsule 0.4 mg 0.4 mg oral Daily Marguerite Wolfe MD 0.4 mg at 05/21/24 0937 Allergies Allergen Reactions Memantine Delusions Increased confusion Other Sneezing Seasonal allergies Past Medical History: Diagnosis Date Anxiety Arthritis Asthma Cancer (CMS/HCC) (HCC) 2018? GERD (gastroesophageal reflux disease) Heart disease Hyperlipidemia Insomnia Osteoporosis Personal history of other diseases of the respiratory system Personal history of asthma - (Added by TW Conv) Rheumatic fever Sleep apnea Diagnosed years ago - not sure if it's still pertinent Sleep difficulties Past Surgical History: Procedure Laterality Date FL FLUORO GUIDED LUMBAR PUNCTURE Right 03/12/2023 FOOT SURGERY Foot Surgery - (Added by TW Conv) LUMBAR DISC SURGERY Spinal Diskectomy Lumbar - (Added by TW Conv) LUMBAR PUNCTURE WO INJECTION, DIAGNOSTIC N/A 05/15/2024 [place] TONSILLECTOMY PRIMARY/SECONDARY <AGE 14 Tonsillectomy - (Added by TW Conv) PROSTATE CANCER GENE 3 (PCA3) SPINE SURGERY HOME MEDICATIONS : terbinafine (LamiSIL) 250 mg tablet acetaminophen (TYLENOL) 325 mg tablet albuterol HFA (PROVENTIL HFA,VENTOLIN HFA,PROAIR HFA) 90 mcg/actuation inhaler atorvastatin (LIPITOR) 20 mg tablet Breo Ellipta 100-25 mcg/dose diskus inhaler cholecalciferol, vitamin D3, 1,000 unit tablet,chewable cranberry extract [address] (VOLTAREN) 75 mg EC tablet donepeziL (ARICEPT) 10 mg tablet escitalopram (Lexapro) 10 mg tablet finasteride (PROSCAR) 5 mg tablet fluticasone propionate (FLONASE) 50 mcg/actuation nasal spray ibuprofen (ADVIL,MOTRIN) 800 mg tablet multivitamin with minerals tablet omega 5-avi-wyq-fish oil 360-1,200 mg capsule,delayed release(DR/EC) omeprazole (PriLOSEC) 20 mg capsule tamsulosin (FLOMAX) 0.4 mg extended release capsule vitamin b complex (Vitamins B Complex) tablet vitamin E (AQUASOL E) 1,000 unit capsule docusate sodium (COLACE) 100 mg capsule docusate sodium (COLACE) 100 mg capsule senna (SENOKOT) 8.6 mg tablet Sodium Fluoride 5000 Dry Mouth 1.1 % paste tamsulosin (FLOMAX) 0.4 mg extended release capsule traMADoL (ULTRAM) 50 mg tablet triamcinolone (KENALOG) 0.1 % cream Allergies Allergen Reactions Memantine Delusions Increased confusion [...] Stroke Other Stroke Syndrome - (Added by TW Conv) Tuberculosis Mother Family history of tuberculosis - (Added by TW Conv) Arthritis Mother Hypertension Mother Stroke Mother No Known Problems Father No Known Problems Daughter No Known Problems Son Alzheimer's disease Maternal Grandmother Memory loss Maternal Grandmother Alzheimer's disease Paternal Grandmother Memory loss Paternal Grandmother EXAM FINDINGS: Objective Vitals: Vitals: 05/21/24 0433 05/21/24 0623 05/21/24 0837 05/21/24 0933 BP: (!) 194/84 157/79 168/73 BP Location: Right arm Patient Position: Lying Pulse: 71 80 Resp: 18 18 Temp: 36.6 ??C (97.9 ??F) 36.4 ??C (97.5 ??F) TempSrc: Oral Oral SpO2: 99% 98% 98% 24 hr Min/Max: Temp Min: 36.4 ??C (97.5 ??F) Max: 36.6 ??C (97.9 ??F) Pulse Min: 71 Max: 80 BP Min: 157/79 Max: 194/84 Resp Min: 18 Max: 18 SpO2 Min: 98 % Max: 99 % Most Recent: Vitals: 05/21/24 0933 BP: 168/73 Pulse: 80 Resp: 18 Temp: 36.4 ??C (97.5 ??F) SpO2: 98% No intake/output data recorded. I/O this shift: In: 240 [P.O.:240] Out: - Neurological Exam: Sleepy but arousable Extraocular movements intact, visual chapa intact, no facial asymmetry, pupils reactive Strength 5/5, atrophy in the small muscles in his hand. No clear fasciculations noted. Intermittentresting tremor bilateral upper extremities Sensation intact DTR 3/4, possible Babinski on the right side Lab/Radiology/Diagnostic Review: Imaging MRI brain 12/03/2022 IMPRESSION: 1. No acute intracranial abnormality. 2. Findings consistent with sequela of mild chronic ischemic microangiopathy and [id number] global parenchymal atrophy. Labs My total encounter time on 05/21/2024 was 65 minutes which was spent in the activities documented inthe note. This includes time spent prior to the visit and after the visit in direct care of the patient. This time does not include time spent in any separately reportable services. Bella Dia MD [facility] Office: PS CONSULTANT * Rod Crane PA - 05/21/2024 8:37 AM CSTAssociated Order(s): IP CONSULT TO NEUROSURGERY Neurosurgery brief consult note Neurosurgery Consultation Patient: Gulshan Johnston CSN: [id number] : 1940 Admission date: 05/21/2024 Length of stay (days): 0 Consulting: Dr. Alston Requesting provider: Dr. Marguerite Wolfe MD Reason for consultation: Dementia, intracranial vascular dementia with acute on chronic altered mental status History of present illness: Gulshan Johnston is a 84 y.o. male not on anticoagulants presents via transfer from outside hospitalto this location for neurosurgery availability with altered mental status. Patient has diagnosis ofintracranial vascular dementia, and is unable to provide a history. No notes or imaging available this morning, currently being uploaded in patient records here. Unknown if recent CT head images, MRIbrain. We are told he recently had an LP, but unsure if diagnostic or therapeutic reasons. Previously revaluated by Dr. Herrera, as patient does not have diagnosis of NPH, recently completedlumbar drain trial without diagnosis of hydrocephalus. Lumbar drain removed 05/18. Romeo assessmentsinclude pretrial 40, and three day assessment of Romeo scores 10, 10 and 5 before drain removed on 05/18. Review of systems: Review of systems could not be obtained due to patient's altered mental status. Past medical/surgical history: Anxiety Asthma GERD HLD SHON Allergies: Memantine Medications: albuterol HFA (PROVENTIL HFA,VENTOLIN HFA,PROAIR HFA) 90 mcg/actuation inhaler atorvastatin (LIPITOR) 20 mg tablet Breo Ellipta 100-25 mcg/dose diskus inhaler cholecalciferol, vitamin D3, 1,000 unit tablet,chewable cranberry extract [address] (VOLTAREN) 75 mg EC tablet donepeziL (ARICEPT) 10 mg tablet escitalopram (Lexapro) 10 mg tablet finasteride (PROSCAR) 5 mg tablet fluticasone propionate (FLONASE) 50 mcg/actuation nasal spray ibuprofen (ADVIL,MOTRIN) 800 mg tablet omega 3-rgu-wxj-fish oil 360-1,200 mg capsule,delayed release(DR/EC) omeprazole (PriLOSEC) 20 mg capsule Sodium Fluoride 5000 Dry Mouth 1.1 % paste tamsulosin (FLOMAX) 0.4 mg extended release capsule traMADoL (ULTRAM) 50 mg tablet triamcinolone (KENALOG) 0.1 % cream vitamin b complex (Vitamins B Complex) tablet vitamin E (AQUASOL E) 1,000 unit capsule Social history: Best Emergency Contact: Daughter, Dominga Garner, also POA, who can be reached at [phone]. Family history: Reviewed and noncontributory Physical Examination: Neuro: awake, not following commands, dementia noted. LU spontaneously. No clonus noted. Difficultto answer questions. Psych: normal affect Constitutional: no acute distress HENT: atraumatic Cardiovascular: normal rate Pulmonary: normal respiratory effort Abdominal: non-distended Musculoskeletal: no edema Imaging and Labs: No new imaging available Assessment and Plan 84 year old male with intracranial vascular dementia, presents from outside hospital via transfer to facility with neurosurgery available. Transfer center confirmed with Dr. Alston. Am told he had another LP from outside facility, but not sure if this is accurate or if done for therapeutic or diagnostic reasons. He is known to us from recent lumbar drain trial, followed with Dr. Herrera. Current outside records, imaging studies being uploaded and will be reviewed. Patient exam last week at [facility] was alert and oriented x3, 5/5 strength and following commands. Unable to get an assessmentthis morning, not following commands with notable dementia. Labs to be included for further workup and assessment of current presentation. Discussed with Dr. Alston, as we can consider an MRI brain here if not already done, or even a CT head scan to reassess intracranial degeneration. Would also recommend a neurology consult for assistance in further evaluation of intracranial degenerative disease. More details and input to follow. Will discuss further with Dr. Wolfe on input. Finally, lumbar drain removed 05/18. Romeo assessments include: pre drain noted 40, followed by Bergscores of 10, 10 and 5 before drain removed. These score values would support against a diagnosis of NPH, as patient does not require neurosurgical attention at this time. Rod Crane PA-C [facility] Cosigned by Micheal Alston MD at 05/21/2024 8:29 PM DEVOPS CONSULTANT PS CONSULTANT PS CONSULTANT PS CONSULTANT documented in this encounter Miscellaneous Notes * Plan of Care - Jackie Rueda RN - 05/29/2024 2:41 PM CST Goals: Clinical Goals for the Shift: monitor vitals/labs, safety, possible d/c Summary: Gulshan is A&Ox1-3 today. Denies any pain. Verbalized readiness for discharge. Problem: Asthma Goal: Patient will tolerate use of medications used to treat asthma 05/29/2024 144 by Jackie Rueda, EAN Outcome: Progressing 05/29/2024 144 by Jackie Rueda RN Outcome: Progressing Problem: Skin Integrity Impairment Risk Goal: Mobility will improve 05/29/2024 144 by Jackie Rueda, EAN Outcome: Progressing 05/29/2024 144 by Jackie Rueda, RN Outcome: Progressing Goal: Understanding of ways to prevent future skin breakdown will improve 05/29/2024 1441 by Jackie Rueda RN Outcome: Progressing 05/29/2024 1441 by Jackie Rueda RN Outcome: Progressing Goal: Nutritional status will improve 05/29/2024 1441 by Jackie Rueda RN Outcome: Progressing 05/29/2024 1441 by Jackie Rueda, EAN Outcome: Progressing Goal: Risk for impaired skin integrity will decrease 05/29/2024 1441 by Jackie Rueda RN Outcome: Progressing 05/29/2024 1441 by Jackie Rueda RN Outcome: Progressing Problem: Discharge Planning Goal: Understanding discharge needs will improve 05/29/2024 144 by Jackie Rueda RN Outcome: Progressing 05/29/2024 144 by Jackie Rueda RN Outcome: Progressing Problem: Neurosensory Goal: Achieves stable or improved neurological status 05/29/2024 1441 by Jackie Rueda RN Outcome: Progressing 05/29/2024 1441 by Jackie Rueda RN Outcome: Progressing Goal: Achieves maximal functionality and self care 05/29/2024 144 by Jackie Rueda RN Outcome: Progressing 05/29/2024 144 by Jackie Rueda RN Outcome: Progressing Problem: Respiratory Goal: Ability to maintain a clear airway will improve 05/29/2024 1441 by Jackie Rueda, EAN Outcome: Progressing 05/29/2024 1441 by Jackie Rueda, EAN Outcome: Progressing Problem: Musculoskeletal Goal: Return mobility to safest level of function 05/29/2024 1441 by Jackie Rueda RN Outcome: Progressing 05/29/2024 1441 by Jackie Rueda, EAN Outcome: Progressing Goal: Return ADL status to a safe level of function 05/29/2024 1441 by Jackie Rueda, EAN Outcome: Progressing 05/29/2024 1441 by Jackie Rueda, EAN Outcome: Progressing Problem: Gastrointestinal Goal: Maintains or returns to baseline bowel function 05/29/2024 1441 by Jackie Rueda RN Outcome: Progressing 05/29/2024 1441 by Jackie Rueda RN Outcome: Progressing Problem: Fall Risk Goal: Ability to state ways to decrease the risk of falls will improve 05/29/2024 144 by Jackie Rueda RN Outcome: Progressing 05/29/2024 1441 by Jackie Rueda RN Outcome: Progressing Goal: Will remain free from falls 05/29/2024 1441 by Jackie Rueda RN Outcome: Progressing 05/29/2024 144 by Jackie Rueda RN Outcome: Progressing Goal: Will remain free from injury from falls 05/29/2024 144 by Jackie Rueda RN Outcome: Progressing 05/29/2024 144 by Jackie Rueda RN Outcome: Progressing Problem: Lack of Knowledge Goal: Ability to develop a pain control plan will improve 05/29/2024 144 by Jackie Rueda RN Outcome: Progressing 05/29/2024 144 by Jackie Rueda RN Outcome: Progressing Problem: Medication Goal: Satisfaction with pain management medication regimen will improve 05/29/2024 144 by Jackie Rueda RN Outcome: Progressing 05/29/2024 144 by Jackie Rueda RN Outcome: Progressing Problem: Sensory Goal: Ability to identify factors that increase pain levels will improve while working to decrease the patient's pain levels 05/29/2024 144 by Jackie Rueda RN Outcome: Progressing 05/29/2024 1441 by Jackie Rueda RN Outcome: Progressing Problem: Coping Goal: Ability to cope will improve 05/29/2024 144 by Jackie Rueda RN Outcome: Progressing 05/29/2024 144 by Jackie Rueda RN Outcome: Progressing Problem: Health Behavior Goal: Identification of resources available to assist in meeting health care needs will improve 05/29/2024 144 by Jackie Rueda, EAN Outcome: Progressing 05/29/2024 144 by Jackie Rueda, RN Outcome: Progressing PS CONSULTANT * Plan of Care - Olimpia Velasquez MSW - 05/29/2024 1:17 PM CST 05/29/24 1310 Discharge Summary Discharge Disposition shelter facility (short term care) Specify Facility [facility] Facility Contact Number [phone] Recommended Discharge Level of Care shelter facility (short term care) Actual Discharge Level of Care shelter facility (short term care) Does Actual Level of Care Match Care Team Recommendation? Yes Post Acute Care Plan Home Care Services N/A OP Services N/A DME N/A Post Acute Care Facility Yes Referral Status Accepted Accepted Post Acute Care Location and Contact [facility], Accepted Post Acute Care Discharge Additional Assistance Does the patient need discharge transport arranged? No Type of Transportation Private vehicle Private Vehicle Information Family Pt plans to dc to [facility] via personal vehicle with dtrDominga. Auth# [id number] valid 05/29/2024-05/31/2024. NRD 05/31/2024 Dispo - SNF/ Managed Care PS CONSULTANT * Plan of Care - Olimpia Velasquez MSW - 05/29/2024 9:49 AM CST 05/29/24 0933 Discharge Planning Support System Children Anticipated discharge level of care shelter facility (short term care) Does the patient need discharge transport arranged? No Post Acute Care Plan Post Acute Care Facility Yes Referral Status Accepted Accepted Post Acute Care Location and Contact [facility], Accepted Post Acute Care MARIA T spoke with Awilda Rosas Liaison ([phone]), who confirmed they are able to accept pt. MARIA T initiated insurance auth. MARIA T called and provided an update to pt's dtrDominga ([phone]) who stated she will be at the hospital later today. PS CONSULTANT * Plan of Care - Javid Zazueta RRT - 05/29/2024 7:22 AM CST Problem: Asthma Goal: Patient will tolerate use of medications used to treat asthma Outcome: Progressing Problem: Respiratory Goal: Ability to maintain a clear airway will improve Outcome: Progressing Metered Dose Inhaler MDI given per physician order. The patient has been instructed on proper use and technique. The patient tolerates the treatment well with good technique. PS CONSULTANT * Plan of Care - Deepa Silverman RN - 05/29/2024 3:13 AM DEVOPS CONSULTANT Goals: Clinical Goals for the Shift: Monitor VS. Promote comfort, safety, and rest. Summary: VSS. PIV dressings changed. Blue goo applied to BLEs. No c/o pain. Pt doing well without sitter again. No complaints at this time. Problem: Asthma Goal: Patient will tolerate use of medications used to treat asthma Outcome: Ongoing Problem: Skin Integrity Impairment Risk Goal: Mobility will improve Outcome: Ongoing Goal: Understanding of ways to prevent future skin breakdown will improve Outcome: Ongoing Goal: Nutritional status will improve Outcome: Ongoing Goal: Risk for impaired skin integrity will decrease Outcome: Ongoing Problem: Fall Risk Goal: Ability to state ways to decrease the risk of falls will improve Outcome: Ongoing Goal: Will remain free from falls Outcome: Ongoing Goal: Will remain free from injury from falls Outcome: Ongoing Problem: Discharge Planning Goal: Understanding discharge needs will improve Outcome: Ongoing Problem: Neurosensory Goal: Achieves stable or improved neurological status Outcome: Ongoing Goal: Achieves maximal functionality and self care Outcome: Ongoing Problem: Respiratory Goal: Ability to maintain a clear airway will improve Outcome: Ongoing Problem: Musculoskeletal Goal: Return mobility to safest level of function Outcome: Ongoing Goal: Return ADL status to a safe level of function Outcome: Ongoing Problem: Gastrointestinal Goal: Maintains or returns to baseline bowel function Outcome: Ongoing Problem: Lack of Knowledge Goal: Ability to develop a pain control plan will improve Outcome: Ongoing Problem: Medication Goal: Satisfaction with pain management medication regimen will improve Outcome: Ongoing Problem: Sensory Goal: Ability to identify factors that increase pain levels will improve while working to decrease the patient's pain levels Outcome: Ongoing Problem: Coping Goal: Ability to cope will improve Outcome: Ongoing Problem: Health Behavior Goal: Identification of resources available to assist in meeting health care needs will improve Outcome: Ongoing PS CONSULTANT * Plan of Care - Yanely Muro RRT - 05/28/2024 7:40 PM CST Problem: Asthma Goal: Patient will tolerate use of medications used to treat asthma Outcome: Progressing Problem: Respiratory Goal: Ability to maintain a clear airway will improve Outcome: Progressing Metered Dose Inhaler MDI given per physician order. The patient has been instructed on proper use and technique. The patient tolerates the treatment well with good technique. PS CONSULTANT * Plan of Care - Elias Stiles RN - 05/28/2024 5:28 PM CST Problem: Asthma Goal: Patient will tolerate use of medications used to treat asthma Outcome: Progressing Problem: Skin Integrity Impairment Risk Goal: Mobility will improve Outcome: Progressing Goal: Understanding of ways to prevent future skin breakdown will improve Outcome: Progressing Goal: Nutritional status will improve Outcome: Progressing Goal: Risk for impaired skin integrity will decrease Outcome: Progressing Problem: Fall Risk Goal: Ability to state ways to decrease the risk of falls will improve Outcome: Progressing Goal: Will remain free from falls Outcome: Progressing Goal: Will remain free from injury from falls Outcome: Progressing Problem: Discharge Planning Goal: Understanding discharge needs will improve Outcome: Progressing Problem: Neurosensory Goal: Achieves stable or improved neurological status Outcome: Progressing Goal: Achieves maximal functionality and self care Outcome: Progressing Problem: Respiratory Goal: Ability to maintain a clear airway will improve Outcome: Progressing Problem: Musculoskeletal Goal: Return mobility to safest level of function Outcome: Progressing Goal: Return ADL status to a safe level of function Outcome: Progressing Problem: Gastrointestinal Goal: Maintains or returns to baseline bowel function Outcome: Progressing Problem: Lack of Knowledge Goal: Ability to develop a pain control plan will improve Outcome: Progressing Problem: Medication Goal: Satisfaction with pain management medication regimen will improve Outcome: Progressing Problem: Sensory Goal: Ability to identify factors that increase pain levels will improve while working to decrease the patient's pain levels Outcome: Progressing Problem: Coping Goal: Ability to cope will improve Outcome: Progressing Problem: Health Behavior Goal: Identification of resources available to assist in meeting health care needs will improve Outcome: Progressing Goals: Clinical Goals for the Shift: VSS, resting, promote comfort and safety. Summary: Patient called the most of shift for assist, VSS, incontinent stool couple times, off puriwick, uses urinal. Will continue plan of care. PS CONSULTANT * Plan of Care - Javid Zazueta RRT - 05/28/2024 7:23 AM CST Problem: Asthma Goal: Patient will tolerate use of medications used to treat asthma Outcome: Progressing Problem: Respiratory Goal: Ability to maintain a clear airway will improve Outcome: Progressing Home Medications Patient is seen per current inhaled bronchodilator protocol. Patient has returned to their baselinerespiratory status. Per protocol, patient is able to continue therapies with their home regimen. Metered Dose Inhaler MDI given per physician order. The patient has been instructed on proper use and technique. The patient tolerates the treatment well with good technique. PS CONSULTANT * Plan of Care - Deepa Silverman RN - 05/28/2024 3:57 AM DEVOPS CONSULTANT Goals: Clinical Goals for the Shift: Monitor VS. Promote comfort, safety, and rest. Summary: VSS. Allevyn placed on right elbow to prevent injury. Blue Goo placed on bilateral feet and ankles d/t redness and scaling. Pt occasionally forgot he was connected to external catheter, otherwise did well without a sitter tonight. PRN Tylenol and Rozerem given before bed. No other complaints at this time. Problem: Asthma Goal: Patient will tolerate use of medications used to treat asthma Outcome: Ongoing Problem: Skin Integrity Impairment Risk Goal: Mobility will improve Outcome: Ongoing Goal: Understanding of ways to prevent future skin breakdown will improve Outcome: Ongoing Goal: Nutritional status will improve Outcome: Ongoing Goal: Risk for impaired skin integrity will decrease Outcome: Ongoing Problem: Fall Risk Goal: Ability to state ways to decrease the risk of falls will improve Outcome: Ongoing Goal: Will remain free from falls Outcome: Ongoing Goal: Will remain free from injury from falls Outcome: Ongoing Problem: Discharge Planning Goal: Understanding discharge needs will improve Outcome: Ongoing Problem: Neurosensory Goal: Achieves stable or improved neurological status Outcome: Ongoing Goal: Achieves maximal functionality and self care Outcome: Ongoing Problem: Respiratory Goal: Ability to maintain a clear airway will improve Outcome: Ongoing Problem: Musculoskeletal Goal: Return mobility to safest level of function Outcome: Ongoing Goal: Return ADL status to a safe level of function Outcome: Ongoing Problem: Gastrointestinal Goal: Maintains or returns to baseline bowel function Outcome: Ongoing Problem: Lack of Knowledge Goal: Ability to develop a pain control plan will improve Outcome: Ongoing Problem: Medication Goal: Satisfaction with pain management medication regimen will improve Outcome: Ongoing Problem: Sensory Goal: Ability to identify factors that increase pain levels will improve while working to decrease the patient's pain levels Outcome: Ongoing Problem: Coping Goal: Ability to cope will improve Outcome: Ongoing Problem: Health Behavior Goal: Identification of resources available to assist in meeting health care needs will improve Outcome: Ongoing PS CONSULTANT * Plan of Care - Yanely Muro RRT - 05/27/2024 8:25 PM CST Problem: Asthma Goal: Patient will tolerate use of medications used to treat asthma Outcome: Progressing Problem: Respiratory Goal: Ability to maintain a clear airway will improve Outcome: Progressing Metered Dose Inhaler MDI given per physician order. The patient has been instructed on proper use and technique. The patient tolerates the treatment well with good technique. PS CONSULTANT * Plan of Care - Elias Stiles RN - 05/27/2024 6:17 PM CST Problem: Asthma Goal: Patient will tolerate use of medications used to treat asthma Outcome: Progressing Problem: Skin Integrity Impairment Risk Goal: Mobility will improve Outcome: Progressing Goal: Understanding of ways to prevent future skin breakdown will improve Outcome: Progressing Goal: Nutritional status will improve Outcome: Progressing Goal: Risk for impaired skin integrity will decrease Outcome: Progressing Problem: Fall Risk Goal: Ability to state ways to decrease the risk of falls will improve Outcome: Progressing Goal: Will remain free from falls Outcome: Progressing Goal: Will remain free from injury from falls Outcome: Progressing Problem: Discharge Planning Goal: Understanding discharge needs will improve Outcome: Progressing Problem: Musculoskeletal Goal: Return mobility to safest level of function Outcome: Progressing Goal: Return ADL status to a safe level of function Outcome: Progressing Problem: Respiratory Goal: Ability to maintain a clear airway will improve Outcome: Progressing Problem: Gastrointestinal Goal: Maintains or returns to baseline bowel function Outcome: Progressing Problem: Lack of Knowledge Goal: Ability to develop a pain control plan will improve Outcome: Progressing Problem: Medication Goal: Satisfaction with pain management medication regimen will improve Outcome: Progressing Problem: Sensory Goal: Ability to identify factors that increase pain levels will improve while working to decrease the patient's pain levels Outcome: Progressing Problem: Health Behavior Goal: Identification of resources available to assist in meeting health care needs will improve Outcome: Progressing Goals: Clinical Goals for the Shift: VSS, rest, comfort and safety. Summary: Nursing to Nursing Communication IGNACIO: Expected Discharge Date Expected Discharge Date May 29, 2024 DC Transport barriers: No PT/OT orders: Yes CM anticipated level of care: Anticipated discharge level of care: shelter facility (short term care) Mobility Barriers (i.e patient refusal, surgical restrictions, safety concerns, etc.): Gait belt, walker. Lines/Drains: Peripheral IV 05/18/24 22 G Posterior;Right Hand (Active) Peripheral IV 05/21/24 Anterior;Distal;Left Brachial (Active) External Urinary Device (Active) Last BM: Last BM Date: 05/25/24 (per cotton tipper RN, pt had several small bm's overnight) Medical Barriers: No Incomplete Orders/Imaging/Consults: No Significant events over the last shift: Patient was alert and oriented time one. Sitting in chair, ambulating on muro with GB and walker. Calm, VSS. Sitter discontinue. Will re-eval patient's impulsiveness and continue plan of care. PS CONSULTANT PS CONSULTANT PS CONSULTANT * Plan of Care - Javid Zazueta RRT - 05/27/2024 7:29 AM CST Problem: Asthma Goal: Patient will tolerate use of medications used to treat asthma Outcome: Progressing Problem: Respiratory Goal: Ability to maintain a clear airway will improve Outcome: Progressing Home Medications Patient is seen per current inhaled bronchodilator protocol. Patient has returned to their baselinerespiratory status. Per protocol, patient is able to continue therapies with their home regimen. Metered Dose Inhaler MDI given per physician order. The patient has been instructed on proper use and technique. The patient tolerates the treatment well with good technique. PS CONSULTANT * Plan of Care - Edita Benavides RN - 05/27/2024 2:35 AM CST Problem: Skin Integrity Impairment Risk Goal: Mobility will improve Outcome: Progressing Flowsheets (Taken 05/27/2024 023) Mobility will improve: Assess circulation, sensation and/or motion of extremity Problem: Musculoskeletal Goal: Return mobility to safest level of function Outcome: Progressing Flowsheets (Taken 05/27/2024 0235) Return mobility to safest level of function: Assess patient stability and activity tolerance for standing, transferring and ambulating with or without assistive devices Problem: Fall Risk Goal: Will remain free from falls Outcome: Progressing Flowsheets (Taken 05/27/2024 0235) Will remain free from falls: Assess risk factors for falls Implement fall prevention measures Goals: Clinical Goals for the Shift: vss, rest, comfort, safety Summary: pt alert self. Vitals stable. Resting without complaints. Will cont monitor PS CONSULTANT * Plan of Care - Lexii Reddy RN - 05/26/2024 1:49 PM CST Requesting therapy to see patient on Wednesday/Wednesday for insurance authorization purposes. PS CONSULTANT * Plan of Care - Steven Iglesias RN - 05/26/2024 1:06 PM CST Problem: Fall Risk Goal: Ability to state ways to decrease the risk of falls will improve Outcome: Progressing Problem: Discharge Planning Goal: Understanding discharge needs will improve Outcome: Progressing Problem: Neurosensory Goal: Achieves stable or improved neurological status Outcome: Progressing Goals: Clinical Goals for the Shift: vss, rest, comfort, safety Summary: Nursing to Nursing Communication IGNACIO: Expected Discharge Date Expected Discharge Date May 29, 2024 DC Transport barriers: No PT/OT orders: Yes CM anticipated level of care: Anticipated discharge level of care: shelter facility (short term care) Mobility Barriers (i.e patient refusal, surgical restrictions, safety concerns, etc.): n Lines/Drains: Peripheral IV 05/18/24 22 G Posterior;Right Hand (Active) Peripheral IV 05/21/24 Anterior;Distal;Left Brachial (Active) External Urinary Device (Active) Last BM: Last BM Date: 05/25/24 (per cotton tipper RN, pt had several small bm's overnight) Medical Barriers: n Incomplete Orders/Imaging/Consults: n Significant events over the last shift: VSS throughout shift. A&Ox2-3 throughout shift. Sitter continued. Pt resting in bed with bed alarm on. PS CONSULTANT * Plan of Care - Karla Fontenot MSW - 05/26/2024 10:48 AM CST Patient expected to SNF at discharge. cinthya Rosas for [facility] anticipates bed availability 05/28/24. Patient will need to be sitter free 24hrs. prior to admission. PS CONSULTANT * Plan of Care - Javid Zazueta RRT - 05/26/2024 7:33 AM CST Problem: Asthma Goal: Patient will tolerate use of medications used to treat asthma Outcome: Progressing Problem: Respiratory Goal: Ability to maintain a clear airway will improve Outcome: Progressing Home Medications Patient is seen per current inhaled bronchodilator protocol. Patient has returned to their baselinerespiratory status. Per protocol, patient is able to continue therapies with their home regimen. Metered Dose Inhaler MDI given per physician order. The patient has been instructed on proper use and technique. The patient tolerates the treatment well with good technique. PS CONSULTANT * Plan of Care - Lucian Deleon RN - 05/26/2024 4:12 AM CST Goals: Clinical Goals for the Shift: vss, rest, comfort, safety Summary: Nursing to Nursing Communication IGNACIO: Expected Discharge Date Expected Discharge Date May 27, 2024 DC Transport barriers: No PT/OT orders: Yes CM anticipated level of care: Anticipated discharge level of care: shelter facility (short term care) Mobility Barriers (i.e patient refusal, surgical restrictions, safety concerns, etc.): Patient can be impulsive Lines/Drains: Peripheral IV 05/18/24 22 G Posterior;Right Hand (Active) Peripheral IV 05/21/24 Anterior;Distal;Left Brachial (Active) External Urinary Device (Active) Last BM: Last BM Date: 05/25/24 (per cotton tipper RN, pt had several small bm's overnight) Medical Barriers: Sitter Incomplete Orders/Imaging/Consults: no Significant events over the last shift: none PS CONSULTANT * Plan of Care - Casey Barnes RRT - 05/25/2024 8:05 PM CST Problem: Asthma Goal: Patient will tolerate use of medications used to treat asthma Outcome: Progressing Problem: Respiratory Goal: Ability to maintain a clear airway will improve Outcome: Progressing Metered Dose Inhaler MDI given per physician order. The patient has been instructed on proper use and technique. The patient tolerates the treatment well with good technique.Home Medications Patient is seen per current inhaled bronchodilator protocol. Patient has returned to their baselinerespiratory status. Per protocol, patient is able to continue therapies with their home regimen. PS CONSULTANT * Plan of Care - Jessica Liu RN - 05/25/2024 4:39 PM CST Goals: Clinical Goals for the Shift: vss, rest, comfort, safety Summary: VSS. Pt up in chair, walking in halls. AOx1. Waiting for bed for discharge. Remains with sitter for wandering risk and fall risk. Care handed off to Tanja MCKOY [id number]. PS CONSULTANT PS CONSULTANT * Provider Query - Javid Riddle, DO - 05/25/2024 4:11 PM CST Specify if the diagnosis NPH has been confirmed or ruled out after study. ___ Diagnosis ruled out ___ Diagnosis confirmed ___ Other explanation of clinical findings, specify below Additional Provider Response: This is a known prior diagnosis and a chronic condition. No new diagnosis was made Clinical Indicators/Treatments: 84yo male admitted from OSH ER on 05/21/2024 after a fall at rehab facility. Recent admit at OSH fordifficulty of mobility. Worsening shuffling gait 05/21/2024 Neurosurgery Consult- lumbar drain removed 05/18.Romeo assessments include: pre drain noted 40, followed by Romeo scores of 10, 10 and 5 before drain removed. These score values would supportagainst a diagnosis of NPH, as patient does not require neurosurgical attention at this time. 05/21/2023 NS note- Recent workup was negative for NPH (in fact patient ROMEO score declined with drainage). 05/24/2024 Hospitalist note- Fall Altered Mental Status Dementia NPH Neurology consulted. Discussed with Dr. De La Vega Difficult to discern etiology with NPH and known underlying dementia References: From the ICD-10-CM Coding Guidelines, use of terms such as likely, suspected, possible, or probable(associated with a specific diagnosis that is being evaluated, monitored, or treated as if it exists) are acceptable and can be coded in the inpatient setting when documented at the time of discharge. This documentation will become part of the patient???s medical record. Sincerely, Lynnette Mustafa RN, BSN, CCDS Clinical Ingredient Scaler Helper [email or web address] PS CONSULTANT * Provider Query - Javid Riddle DO - 05/25/2024 4:11 PM CST Specify a diagnosis that reflects the patient???s level of strength and mobility on admission, and document in the medical record and on the form below. Select all that apply: __X_Reduced Mobility ___Other, specify below Additional Provider Response: Clinical Indicators/Treatments: 84yo male admitted from OSH ER on 05/21/2024 after a fall at rehab facility. Recent admit at OSH fordifficulty of mobility. Worsening shuffling gait 05/21/2024 PT/OT ordered 05/21/2024 OT evaluation- requires minimal physical assist and maximum verbal cues for grooming and dressing Sit <> stand from edge of bed with max assist + verbal/tactile cues for hand placement/sequencing. Pt unable to find balance despite verbal/tactile cues from therapist. Significant posterior lean + noted toe extension during stand. Attempted x3, on third attempt pt's feet begin to shuffle in front of him causing an uncontrolled return to bed, OT provides max assist for safe return to seatededge of bed. 05/24/2024 Hospitalist note- PT/OT recommends d/c to SNF, currently has a sitter References: General Debility and Chronic Fatigue Documentation Practices To accurately represent patient acuity under CMS risk-adjustment methodology, please consider and document the following diagnoses, when applicable. Age-related physical debility Postviral fatigue syndrome Consider in patients with excessive and persistent fatigue following a viral illness, such as COVID-19 Myalgic encephalopmyelitis/chronic fatigue syndrome Other post-infection and related fatigue syndromes Neoplastic related fatigue The only diagnostic criteria is if the patient reports fatigue. May also report weariness, malaise,apathy, lassitude, or burnout. Characterized by excessive and persistent exhaustion that is disproportionate to the task done, often interfering with daily activity. Exhibited in 70-100% of patients with cancer. Often begins prior to diagnosis, worsens during treatment, and may persist for months or years after treatment ends Functional Quadriplegia Chronic fatigue Limitation of activities due to disability Bed confinement status Other reduced mobility Applicable to those with impaired mobility, requiring dependence on care providers. May require extensive PT/OT, estuardo lifts, mobility devices/aids, etc. Debility References Functional Quadriplegia. ICD-9-CM Coding Clinic, 2007 Page: 143 Effective with discharges: April [facility]: Cancer Fatigue From the ICD-10-CM Coding Guidelines, use of terms such as likely, suspected, possible, or probable(associated with a specific diagnosis that is being evaluated, monitored, or treated as if it exists) are acceptable and can be coded in the inpatient setting when documented at the time of discharge. This documentation will become part of the patient???s medical record. Sincerely, Lynnette Mustafa RN, BSN, CCDS Clinical Ingredient Scaler Helper [email or web address] PS CONSULTANT * Plan of Care - Merissa Alejandra RRT - 05/25/2024 10:17 AM CST Problem: Asthma Goal: Patient will tolerate use of medications used to treat asthma Outcome: Progressing Inhaled Bronchodilator Therapy Patient assessed and scored per the established inhaled bronchodilator protocol criteria. Patient preference and subjective response to therapy used in conjunction with patient score to provide current aerosol therapy. Metered Dose Inhaler MDI given per physician order. The patient has been instructed on proper use and technique. The patient tolerates the treatment well with good technique. PS CONSULTANT * Plan of Care - Karla Fontenot MSW - 05/25/2024 9:35 AM CST [facility] can tentatively accept however no beds at this time. No other accepting choicefacilities. Spoke w/ Alison, liaison for the facility and she will have a better idea of bed availability tomorrow. Patient will need to be sitter free prior to final acceptance. 1255pm Spoke with daughter Dominga [phone] and provided update. She is currently touring [facility] facilities and will f/u tomorrow w/ outcome. PS CONSULTANT PS CONSULTANT * Plan of Care - Lucian Deleon RN - 05/25/2024 4:30 AM CST Problem: Skin Integrity Impairment Risk Goal: Mobility will improve Outcome: Ongoing Goal: Understanding of ways to prevent future skin breakdown will improve Outcome: Ongoing Goal: Nutritional status will improve Outcome: Ongoing Goal: Risk for impaired skin integrity will decrease Outcome: Ongoing Problem: Fall Risk Goal: Ability to state ways to decrease the risk of falls will improve Outcome: Ongoing Goal: Will remain free from falls Outcome: Ongoing Goal: Will remain free from injury from falls Outcome: Ongoing Goals: Clinical Goals for the Shift: vss, rest, comfort, safety Summary: VSS, needs frequent reorientation through out night. RN will continue to monitor PS CONSULTANT * Plan of Care - Jody Ramsey RRT - 05/24/2024 7:36 PM CST Problem: Asthma Goal: Patient will tolerate use of medications used to treat asthma Outcome: Progressing Problem: Respiratory Goal: Ability to maintain a clear airway will improve Outcome: Progressing Lung Sounds Lungs are clear to auscultation with no accessory muscle use. No complaint of subjective dyspnea. Cough Patient has a strong cough on demand. Will continue to monitor sputum amount, color, and consistency. Small amounts of thin, clear sputum produced. Inhaled Bronchodilator Therapy Patient assessed and scored per the established inhaled bronchodilator protocol criteria. Patient preference and subjective response to therapy used in conjunction with patient score to provide current aerosol therapy. Home Medications Patient is seen per current inhaled bronchodilator protocol. Patient has returned to their baselinerespiratory status. Per protocol, patient is able to continue therapies with their home regimen. Metered Dose Inhaler MDI given per physician order. The patient has been instructed on proper use and technique. The patient tolerates the treatment well with good technique. Pt rinsed mouth after tx. PS CONSULTANT * Plan of Care - Leanna Reyes RN - 05/24/2024 4:16 PM CST Problem: Asthma Goal: Patient will tolerate use of medications used to treat asthma Outcome: Ongoing Problem: Skin Integrity Impairment Risk Goal: Mobility will improve Outcome: Ongoing Goal: Understanding of ways to prevent future skin breakdown will improve Outcome: Ongoing Goal: Nutritional status will improve Outcome: Ongoing Goal: Risk for impaired skin integrity will decrease Outcome: Ongoing Problem: Discharge Planning Goal: Understanding discharge needs will improve Outcome: Ongoing Problem: Neurosensory Goal: Achieves stable or improved neurological status Outcome: Ongoing Goal: Achieves maximal functionality and self care Outcome: Ongoing Problem: Respiratory Goal: Ability to maintain a clear airway will improve Outcome: Ongoing Problem: Musculoskeletal Goal: Return mobility to safest level of function Outcome: Ongoing Goal: Return ADL status to a safe level of function Outcome: Ongoing Problem: Gastrointestinal Goal: Maintains or returns to baseline bowel function Outcome: Ongoing Problem: Fall Risk Goal: Ability to state ways to decrease the risk of falls will improve Outcome: Ongoing Goal: Will remain free from falls Outcome: Ongoing Goal: Will remain free from injury from falls Outcome: Ongoing Problem: Lack of Knowledge Goal: Ability to develop a pain control plan will improve Outcome: Ongoing Problem: Medication Goal: Satisfaction with pain management medication regimen will improve Outcome: Ongoing Problem: Sensory Goal: Ability to identify factors that increase pain levels will improve while working to decrease the patient's pain levels Outcome: Ongoing Problem: Coping Goal: Ability to cope will improve Outcome: Ongoing Problem: Health Behavior Goal: Identification of resources available to assist in meeting health care needs will improve Outcome: Ongoing Goals: Clinical Goals for the Shift: vss, rest, comfort, safety Summary: vss, ensure pt comfort and safety, sitter remains at bedside. PT oriented x2-3, able to verbalize needs. Nursing to Nursing Communication IGNACIO: Expected Discharge Date Expected Discharge Date May 24, 2024 DC Transport barriers: No PT/OT orders: Yes CM anticipated level of care: Anticipated discharge level of care: shelter facility (short term care) Mobility Barriers (i.e patient refusal, surgical restrictions, safety concerns, etc.): NA Lines/Drains: Peripheral IV 05/18/24 22 G Posterior;Right Hand (Active) Peripheral IV 05/21/24 Anterior;Distal;Left Brachial (Active) External Urinary Device (Active) Last BM: Last BM Date: 05/23/24 Medical Barriers: NA Incomplete Orders/Imaging/Consults: NA Significant events over the last shift: NA PS CONSULTANT * Plan of Care - Karla Fontenot MSW - 05/24/2024 3:14 PM CST Spoke with daughter Dominga [phone] to discuss SNF options. She is interested in [facility] (acceptance pending) and [facility] (needs to be sitter free). Dominga is looking in to assisted living as a plan after rehab. Social work to follow up with daughter once there is confirmed SNF acceptance to obtain choice. Patient needs to be sitter free. PS CONSULTANT * [facility]IN Note - Karla Fontenot MSW - 05/24/2024 9:17 AM CST Images from the original note were not included. Patient Information: OT Eval and Treat Last 72 Hours OT Evaluation Row Name 05/21/24 1328 Chart Reviewed Yes -NS Session Type Evaluation -NS OT Received On 05/21/24 -NS Safe Environment Arm band checked;Gait belt utilized for all out of bed mobility;Patient found in supine;Session completed bedside -NS Subjective Agreeable to Therapy -NS Additional Pertinent History 84-year-old male history of anxiety asthma GERD dyslipidemia obstructive sleep apnea. He is a direct admit from [facility] for chief complaint of unspecified altered mental status. Pt with recent [facility] admission for lumbar drain and NPH evaluation. Pt was discharged from [facility] to SNF and presented back to hospital now for ongoing symptoms. -NS Family/Caregiver Present Yes daughter present at start of session, grandchildren and great grand child present briefly mid-session -NS Occupational Therapy-Patient Goal To return home at PLOF -NS Precautions Bed/Chair Alarm;Fall risk -NS Type of Home House -NS Home Layout One level;Performs ADLs on one level -NS Home Access Stairs to enter with rails -NS Entrance Stairs-Number of Steps 3 -NS Bathroom Shower/Tub Tub/shower unit -NS Bathroom Toilet Standard -NS Bathroom Equipment Shower chair -NS Home Mobility Equipment-Available None -NS Home Mobility Equipment-Currently Using None -NS Level of [place] Independent with ADLs;Independent functional transfers;Independent with ambulation;Needs assistance with homemaking -NS Lives With Alone -NS Receives Help From Family -NS Driving No -NS ADL Assistance Independent -NS Instrumental ADL (IADL) Assistance Needs assistance Daughters complete IADLs -NS Fall within the last 6 months Yes -NS Fall within the last 6 months comment Pt fell at SNF leading to this admission - got out of bed without notifying nursing staff. Additionally a fall at home due to water on floor -NS Grooming: Where assessed Supine, bed -NS Grooming: Level of assistance Minimum Assist;Maximal Verbal Cues -NS Grooming: Assistance with Wash/dry face -NS LE Dressing: Where assessed Sitting;Edge of bed -NS LE Dressing: Level of assistance Maximum Assist -NS LE Dressing: Assistance with Don/doff R sock;Don/doff L sock -NS Toileting: Where assessed Supine, bed Pt has loose stool in bed -NS Toileting: Level of assistance Dependent -NS Toileting: Assistance with Perineal hygiene;Posterior;Safety -NS Room Mobility comment Not safe to complete this date -NS Pain Assessment No/denies pain -NS Endurance Tolerates 10 - 20 min activity with multiple rests -NS Activity Tolerance Comments Pre OT: 97 O2, 79 HR, 114/48 BP -NS Vision Comments Pt reports no recent changes in vision. -NS Cognition Comments Baseline dementia, daughter reports his cognition is worse than baseline -NS Arousal/Alertness Lethargic;Alert Pt's alertness waxes/wanes throughout session -NS Attention Span Attends with cues to redirect;Difficulty attending to directions;Difficulty dividingattention;Distractability -NS Current communication -- Pt mumbles, sentences not always appropriate for situation -NS Orientation Oriented to person -NS Following Commands Follows one step commands with repetition Follows commands about 1/3 of time -NS Safety Judgment Decreased awareness of need for safety -NS Awareness of Errors Decreased awareness of errors -NS Insight Decreased awareness of deficits -NS Problem Solving Assistance required to identify errors made;Assistance required to generate solutions;Assistance required to implement solutions -NS Compliance/Behavior Easy to engage -NS Perseveration Present - physical;Mild fixated on socks -NS Bed Mobility Comments 1 Supine <> edge of bed with moderate assist at trunk and legs for force production + max verbal cues + head of bed elevated to approx 30* -NS Trials/Comments 1 Sit <> stand from edge of bed with max assist + verbal/tactile cues for hand placement/sequencing. Pt unable to find balance despite verbal/tactile cues from therapist. Significant posterior lean + noted toe extension during stand. Attempted x3, on third attempt pt's feet begin to shuffle in front of him causing an uncontrolled return to bed, OT provides max assist for safe return to seated edge of bed. -NS RUE Assessment WFL -NS LUE Assessment WFL -NS Comments Significant time in session spent providing personal care following BM. -NS Safe Environment End of Therapy Session Patient left supine in bed;Bed alarm in place and activated;Call light within reach;Overbed table within reach;Bed in lowest position with wheels locked -NS Prognosis Good -NS Problem List Decreased cognition;Decreased endurance;Decreased balance;Decreased functional mobility;Decreased ADL independence;Poor/Decreased functional positioning;Gait;Decreased safe judgment during ADL -NS Barriers to Discharge Current Mobility Status;Current ADL Status;Cognition;Decreased safety awareness -NS Plan Plan of care initiated;If this is the last note, consider this the discharge summary -NS OT Recommendation Half-Way Facility -NS Patient at high risk for Falls;Readmission;Injury due to decreased ability to care for self;Injury due to reduced functional status;Injury due to impaired cognition;Injury due to balance deficits;Injury at home as patient has not returned to prior level of function;Developing impaired skin integrity;Cognitive decline due to decreased social participation;Mismanagement of medications;Prolonged dependence for self care tasks;Developing secondary complications: poor health management -NS Recommend SNF due to Risk of injury at home;Skilled therapy needed to address care for self in the home;Unable to safely care for self in the home;Skilled therapy needed to address functional deficits;Skilled therapy needed for patient to return to prior level of independence -NS OT Frequency during current admission 2-3x/wk -NS Treatment/Interventions during current admission ADL/IADL retraining;Balance Training;Endurance training;Functional activity;Functional transfer training;Functional mobility training;Positioning;Strengthening;Therapeutic activity;Therapeutic exercise;Transfer training -NS OT Evaluation Complete Yes -NS User Street (r) = Recorded By, (t) = Taken By, (c) = Cosigned By Initials Name Effective Dates Alexandria Negron, OT 08/05/22 - OT Treatment Row Name 05/23/24 1418 Session Type Treatment -GW OT Received On 05/23/24 -GW Safe Environment Arm band checked;Patient found sitting in chair -GW Subjective Comment Pt. agreeable to therapy -GW Family/Caregiver Present Yes -GW Precautions Bed/Chair Alarm;Fall risk -GW Pain Score 0 - No pain -GW Clinical Progression Not changed -GW Grooming: Where assessed Standing at sink;Sitting at sink Pt. stood for oral care & part of shaving, then took seated rest while continuing to shave. Pt. stood to finish shaving, then took one final seated rest break at sink. -GW Grooming: Level of assistance Moderate Assist -GW Grooming: Assistance with Teeth care;Shaving;Wash/dry face -GW LE Dressing: Where assessed Chair -GW LE Dressing: Level of assistance Minimum Assist -GW LE Dressing: Assistance with Don/doff R sock;Don/doff L sock -GW Toileting: Where assessed -- just completed with PCT prior to OT arrival -GW Trials/Comments 1 Sit to/from stand via stand aid minimum assist (completed x3 occasions). Pt. transported recliner to/from sink via stand aid dependently -GW Trials/Comments 2 Sit to/from stand via ww minimum/moderate assist. Once in standing with support of 2 ww, pt. required minimum-moderate assist from OT to maintain static standing balance. While standing, worked on posture and marching in place 1 set x 10 reps. -GW Trials/Comments 3 OT elevates bed, raises bedrails, turns pt.'s chair to face bed. Sit to/from stand then completed x2 occasions with minimum assist. Once upright, pt. utilized bedrails for support (more stable than 2 ww). In this position, pt. once again works on posture & marching in place - pt. still with posterior lean, though this lessens to a degree with activity. Pt. reports fatigue end of session -GW Arousal/Alertness Alert;Appropriate responses to stimuli -GW Attention Span Attends with cues to redirect -GW Memory Decreased short term memory -GW Current communication Appears Intact -GW Orientation Oriented to person -GW Following Commands Follows one step commands with repetition -GW Safety Judgment Impulsive -GW Awareness of Errors Assistance required to identify errors made;Assistance required to correct errors made;Decreased awareness of errors -GW Insight Decreased awareness of deficits -GW Problem Solving Assistance required to identify errors made;Assistance required to generate solutions;Assistance required to implement solutions - Compliance/Behavior Easy to engage - Safe Environment End of Therapy Session Patient left in recliner;Chair alarm in place and activated;RN notified;Call light within reach - Problem List Decreased safe judgment during ADL;Decreased cognition;Decreased endurance;Decreased balance;Decreased functional mobility;Decreased ADL independence;Decreased IADL independence;Gait - Plan If this is the last note, consider this the discharge summary - OT Recommendation Half-Way Facility -GW Patient at high risk for Falls;Readmission;Injury due to decreased ability to care for self;Injury due to reduced functional status;Injury due to impaired cognition;Injury due to balance deficits;Injury at home as patient has not returned to prior level of function;Prolonged dependence for self care tasks;Developing secondary complications: poor health management - Recommend SNF due to Risk of injury at home;Unable to safely care for self in the home;Skilled therapy needed to address care for self in the home;Skilled therapy needed to address functional deficits;Skilled therapy needed for patient to return to prior level of independence - User Street (r) = Recorded By, (t) = Taken By, (c) = Cosigned By Initials Name Effective Dates Nestor Bragg OT 04/10/19 - OT Notes 05/23/2024 2:29 PM Progress Notes signed by Nestor Bragg OT , PT Eval and Treat Last 72 Hours PT Evaluation Row Name 05/22/24 9630 Chart Reviewed Yes -CC Session Type Evaluation -CC Safe Environment Arm band checked;Patient found sitting in chair;Gait belt utilized for all out of bed mobility -CC Subjective Agreeable to Therapy - Subjective Comment The pt. thinks that he is moving about the same as he always does. The pt's sitter reports that the pt's daughter reports that the pt. is normally much more mobile and that he walks without a device. -CC Additional Pertinent History The pt. Is an 84 year old female who presents to [facility] as a direct admit from [facility] with falls and altered mental status. A CT of the head reveals no acute fracture or intracranial finding. Per neurology, the pt's symptoms are suggestive of a parkinsonism such as Lewy body dementia vs. Vascular dementia. A low dose of Sinemet is being considered. PMH: OA, asthma, cervical radiculopathy, polyneuropathy, Alzheimer's disease, normal pressure hydrocephalus, DLD, recent (05/15/24) work up at [facility] for normal pressure hydrocephalus, prostate CA -CC Family/Caregiver Present No -CC Physical Therapy-Patient Goal The pt. does not state a goal -CC Precautions Bed/Chair Alarm;Fall risk sitter -CC Type of Home House -CC Home Layout One level;Able to live on main level with bedroom/bathroom -CC Home Access Stairs to enter with rails -CC Entrance Stairs-Number of Steps 3 -CC Home Mobility Equipment-Available None -CC Home Mobility Equipment-Currently Using None -CC Level of [place] Independent with ADLs;Independent functional transfers;Independent with ambulation;Needs assistance with homemaking -CC Lives With Alone -CC Receives Help From Family -CC Driving No -CC Fall within the last 6 months Yes -CC Fall within the last 6 months comment The pt. fell at the SNF, leading to this admission. He got out of bed on his own. -CC Pain Assessment 0-10 -CC Pain Score 0 - No pain -CC Clinical Progression Not changed -CC Arousal/Alertness Alert;Appropriate responses to stimuli -CC Following Commands Follows one step commands with repetition -CC Compliance/Behavior Easy to engage -CC Movements are Fluid and Coordinated 0 impaired rapid alternating pronation supination of the UEs: impaired rate, rhythm, and accuracy -CC Heel to Chan Impaired;Right;Left;Moderate;Decreased rhythm;Decreased accuracy -CC Balance Tests Yes -CC 1. Sitting to Standing 0 -CC 2. Standing Unsupported 0 -CC 3. Sitting with Back Unsupported but Feet Supported on Floor or on a Stool 3 -CC 4. Standing to Sitting 0 -CC 5. Transfers 1 -CC 6. Standing Unsupported with Eyes Closed 0 -CC 7. Standing Unsupported with Feet Together 0 -CC 8. Reach Forward with Outstretched Arm While Standing 0 -CC 9. Child Custody Evaluator Object from Floor from a Standing Position 0 -CC 10. Turning to Look Behind Over Left and Right Shoulders While Standing 0 -CC 11. Turn 360 Degrees 0 -CC 12. Place Alternate Foot on Step or Stool While Standing Unsupported 0 -CC 13. Standing Unsupported One Foot in Front 0 -CC 14. Standing on One Leg 0 -CC Romeo Balance Score 4 -CC Balance Yes -CC Static Sitting-Balance Support Bilateral upper extremity supported;Feet supported -CC Static Sitting-Sitting Surface Chair -CC Static Sitting-Level of Assistance Distant supervision -CC Static Standing-Balance Support Bilateral upper extremity supported -CC Static Standing-Standing Surface Floor -CC Static Standing-Level of Assistance Moderate assistance;Maximum assistance -CC Static Standing-Comment/# of Minutes The pt. tends to lean posteriorly with the WW -CC Bed Mobility Comments 1 The pt. was seated in the recliner upon my arrival. -CC Transfer Yes -CC Transfer From 1 Sit -CC Transfer Type 1 To and from -CC Transfer to 1 Stand -CC Transfer Device 1 Wheeled walker -CC Transfer Level of Assistance 1 Moderate Assist;Maximum Assist -CC Trials/Comments 1 The pt. performs sit to and from stand x 2 trials this session. He has a tendencyto lean posteriorly during the sit to stand transition. -CC Transfer From 2 Stand -CC Transfer Type 2 To -CC Transfer to 2 Chair with arms -CC Technique 2 Stand pivot -CC Transfer Device 2 Wheeled walker -CC Transfer Level of Assistance 2 Moderate Assist;Maximum Assist -CC Trials/Comments 2 The pt. requires assistance to maneuver the WW around to the chair. He attempts to dive into the chair while still several steps away from the chair. -CC Distance (ft) 1 30 x 2 -CC Surface 1 Level tile -CC Device 1 Wheeled walker -CC Assistance 1 Moderate Assist -CC Gait: Requires assist with 1 Maintaining balance -CC Gait: Requires verbal cues to 1 Use assistive device safely;Improve upright posture -CC Gait Deviations 1 Shuffling -CC Ambulation Comments 1 The pt ambulates with parkinsonian gait with short shuffling steps, stepping in place at times, and difficulty advancing in tight spaces. At one point during gait, the pt. stepsin place while his WW is too far out in front of his body, causing him to become very unsteady. He demonstrates difficulty with turns and while going through the doorway. -CC RLE Assessment X -CC R Hip Flexion 4/5 -CC R Hip Extension 5/5 -CC R Hip ABduction 5/5 -CC R Hip ADduction 5/5 -CC R Knee Flexion 5/5 -CC R Knee Extension 5/5 -CC R Ankle Dorsiflexion 5/5 -CC R Ankle Plantar Flexion 4+/5 -CC LLE Assessment X -CC L Hip Flexion 4/5 -CC L Hip Extension 5/5 -CC L Hip ABduction 5/5 -CC L Hip ADduction 5/5 -CC L Knee Flexion 5/5 -CC L Knee Extension 5/5 -CC L Ankle Dorsiflexion 5/5 -CC L Ankle Plantar Flexion 4+/5 -CC Safe Environment End of Therapy Session Patient left in recliner sitter in room at the end of the session -CC Prognosis Fair -CC Problem List Reduced Moblity;Debility;Gait deviations;Decreased strength;Decreased endurance;Impaired balance;Decreased coordination;Decreased cognition;Impaired judgement;Decreased safety awareness;Postural deficit - Barriers to Discharge Current Mobility Status - Plan Plan of care initiated;If this is the last note, consider this the discharge summary - PT Recommendation/Plan Half-Way Facility -CC Patient at high risk for Falls;Readmission;Injury due to decreased ability to care for self;Injury due to reduced functional status;Injury due to balance deficits;Injury due to impaired cognition - Recommend SNF due to Risk of injury at home;Unable to safely care for self in the home;Skilled therapy needed to address care for self in the home;Skilled therapy needed to address functional deficits;Skilled therapy needed for patient to return to prior level of independence - PT Frequency during current admission 2-3x/wk - Treatment/Interventions during current admission Balance Training;Bed mobility;Endurance training;Equipment eval/education;Functional activity;Functional transfer training;Graded handling;Gait trainin g;Neuromuscular re-education;Positioning;Stair training;Strengthening;Therapeutic activity;Therapeutic exercise;Transfer training - PT Equipment Recommended -- pending progress - PT - OK to Discharge No -CC PT Evaluation Complete Yes -CC PT Start Time 1432 - PT Stop Time 1455 - PT Time Calculation (min) 23 min - User Street (r) = Recorded By, (t) = Taken By, (c) = Cosigned By Initials Name Effective Dates CC Senait Garrido DPT 04/10/19 - PT TREATMENT (Last 168 Hours) PT Treatment No documentation. PT Notes 05/22/2024 3:09 PM Progress Notes signed by Senait Garrido DPT PS CONSULTANT * ECIN Note - Karla Fontenot MSW - 05/24/2024 9:17 AM CST Patient Information: Meds and Admin Active Only All Meds/Most Recent Administrations hydrALAZINE (APRESOLINE) injection 10 mg [[id number]] Ordering Provider: Eddie Acosta DO Status: Dispensed Ordered On: 05/21/24448 Start: 05/21/24448 Ordered Dose (Remaining/Total): 10 mg (--/--) Route: intravenous Frequency: Every 4 hours PRN Ordered Rate/Order Duration: -- / 2 Minutes Line Med Link Info Comment Peripheral IV 05/21/24 Anterior;Distal;Left Brachial 05/21/242141 by Harlan Moore RN -- Timestamps Action Dose / Duration Route Other Information 05/21/242141 Given 10 mg 2 Minutes intravenous Performed by: Harlan Moore RN Scanned Package: 80116-429-17 polyethylene glycol (MIRALAX) packet 17 g [[id number]] Ordering Provider: Eddie Acosta DO Status: Verified Ordered On: 05/21/24547 Start: 05/21/24547 Ordered Dose (Remaining/Total): 17 g (--/--) Route: oral Frequency: Daily PRN Ordered Rate/Order Duration: -- / -- (No admins scheduled or recorded for this medication) bisacodyl EC (DULCOLAX EC) tablet 10 mg [[id number]] Ordering Provider: Eddie Acosta DO Status: Verified Ordered On: 05/21/24547 Start: 05/21/24547 Ordered Dose (Remaining/Total): 10 mg (--/--) Route: oral Frequency: Daily PRN Ordered Rate/Order Duration: -- / -- Admin Instructions: Administer if tolerating PO. Do not crush, chew, cut, dissolve, open or otherwise manipulate tablet/capsule. (No admins scheduled or recorded for this medication) bisacodyL (DULCOLAX) suppository 10 mg [[id number]] Ordering Provider: Eddie Acosta DO Status: Verified Ordered On: 05/21/24547 Start: 05/21/24547 Ordered Dose (Remaining/Total): 10 mg (--/--) Route: rectal Frequency: Daily PRN Ordered Rate/Order Duration: -- / -- Admin Instructions: Administer if not tolerating PO. (No admins scheduled or recorded for this medication) ramelteon (ROZEREM) tablet 8 mg [[id number]] Ordering Provider: Eddie Acosta DO Status: Dispensed Ordered On: 05/21/24547 Start: 05/21/24547 Ordered Dose (Remaining/Total): 8 mg (--/--) Route: oral Frequency: Nightly PRN Ordered Rate/Order Duration: -- / -- Timestamps Action Dose Route Other Information 05/23/241911 Given 8 mg oral Performed by: Harlan Moore RN Scanned Package: 95714-361-52 acetaminophen (TYLENOL) tablet 650 mg [[id number]] Ordering Provider: Marguerite Wolfe MD Status: Dispensed Ordered On: 05/21/24814 Start: 05/21/24813 Ordered Dose (Remaining/Total): 650 mg (--/--) Route: oral Frequency: Every 6 hours PRN Ordered Rate/Order Duration: -- / -- Timestamps Action Dose Route Other Information 05/23/241911 Given 650 mg oral Performed by: Harlan Moore RN Scanned Package: 23840-342-22, 54034-507-82 atorvastatin (LIPITOR) tablet 20 mg [[id number]] Ordering Provider: Marguerite Wolfe MD Status: Dispensed Ordered On: 05/21/24814 Start: 05/21/24899 Ordered Dose (Remaining/Total): 20 mg (--/--) Route: oral Frequency: Daily Ordered Rate/Order Duration: -- / -- Timestamps Action Dose Route Other Information 05/24/24843 Given 20 mg oral Performed by: Leanna Reyes RN Scanned Package: 54174-142-19 budesonide-formoteroL (SYMBICORT) 80-4.5 mcg/actuation inhaler 2 puff [[id number]] Ordering Provider: Marguerite Wolfe MD Status: Verified Ordered On: 05/21/24814 Start: 11/03/24 0900 Ordered Dose (Remaining/Total): 2 puff (--/--) Route: inhalation Frequency: 2 times daily (correspondence clerk) Ordered Rate/Order Duration: -- / -- Timestamps Action Dose Route Other Information 05/24/24 0520 Given 2 puff inhalation Performed by: Cathleen Mendieta RRT docusate sodium (COLACE) capsule 100 mg [[id number]] Ordering Provider: Marguerite Wolfe MD Status: Dispensed Ordered On: 05/21/24814 Start: 05/21/24899 Ordered Dose (Remaining/Total): 100 mg (--/--) Route: oral Frequency: 2 times daily Ordered Rate/Order Duration: -- / -- Timestamps Action Dose Route Other Information 05/22/24899 Given 100 mg oral Performed by: Alexandria King RN Scanned Package: [id number] donepeziL (ARICEPT) tablet 10 mg [[id number]] Ordering Provider: Marguerite Wolfe MD Status: Dispensed Ordered On: 05/21/24814 Start: 05/21/242099 Ordered Dose (Remaining/Total): 10 mg (--/--) Route: oral Frequency: Nightly Ordered Rate/Order Duration: -- / -- Timestamps Action Dose Route Other Information 05/23/241911 Given 10 mg oral Performed by: Harlan Moore RN Scanned Package: 7431-9941-68 escitalopram (LEXAPRO) tablet 10 mg [[id number]] Ordering Provider: Marguerite Wolfe MD Status: Dispensed Ordered On: 05/21/24814 Start: 05/21/24899 Ordered Dose (Remaining/Total): 10 mg (--/--) Route: oral Frequency: Daily Ordered Rate/Order Duration: -- / -- Timestamps Action Dose Route Other Information 05/24/24 08 Given 10 mg oral Performed by: Leanna Reyes RN Scanned Package: [id number] finasteride (PROSCAR) tablet 5 mg [[id number]] Ordering Provider: Marguerite Wolfe MD Status: Dispensed Ordered On: 05/21/24814 Start: 05/21/24899 Ordered Dose (Remaining/Total): 5 mg (--/--) Route: oral Frequency: Daily Ordered Rate/Order Duration: -- / -- Admin Instructions: Do not crush, break, or open. Timestamps Action Dose Route Other Information 05/24/24843 Given 5 mg oral Performed by: Leanna Reyes RN Scanned Package: [id number] (PROTONIX) extended release tablet 40 mg [[id number]] Ordering Provider: Marguerite Wolfe MD Status: Dispensed Ordered On: 05/21/24814 Start: 05/21/24899 Ordered Dose (Remaining/Total): 40 mg (--/--) Route: oral Frequency: Daily Ordered Rate/Order Duration: -- / -- Admin Instructions: Do not crush, chew, cut, dissolve, open or otherwise manipulate tablet/capsule. Timestamps Action Dose Route Other Information 05/24/24843 Given 40 mg oral Performed by: Leanna Reyes RN Scanned Package: [id number] tamsulosin (FLOMAX) extended release capsule 0.4 mg [[id number]] Ordering Provider: Marguerite Wolfe MD Status: Dispensed Ordered On: 05/21/24814 Start: 05/21/24899 Ordered Dose (Remaining/Total): 0.4 mg (--/--) Route: oral Frequency: Daily Ordered Rate/Order Duration: -- / -- Admin Instructions: Do not crush, chew, cut, dissolve, open or otherwise manipulate tablet/capsule. Timestamps Action Dose Route Other Information 05/24/24843 Given 0.4 mg oral Performed by: Leanna Reyes RN Scanned Package: [id number] albuterol HFA (PROVENTIL HFA,VENTOLIN HFA,PROAIR HFA) 90 mcg/actuation inhaler 2 puff [[id number]] Ordering Provider: Marguerite Wolfe MD Status: Verified Ordered On: 05/21/24856 Start: 05/21/24856 Ordered Dose (Remaining/Total): 2 puff (--/--) Route: inhalation Frequency: Every 4 hours PRN (correspondence clerk) Ordered Rate/Order Duration: -- / -- (No admins scheduled or recorded for this medication) enoxaparin (LOVENOX) syringe 40 mg [[id number]] Ordering Provider: Marguerite Wolfe MD Status: Dispensed Ordered On: 05/21/24 114 Start: 05/21/242099 Ordered Dose (Remaining/Total): 40 mg (--/--) Route: subcutaneous Frequency: Daily (for enoxaparin) Ordered Rate/Order Duration: -- / -- Timestamps Action Dose Route / Site Other Information 05/23/241911 Given 40 mg subcutaneous Right Lower Abdomen Performed by: Harlan Moore RN Scanned Package: [id number] ondansetron (ZOFRAN) injection 4 mg [[id number]] Ordering Provider: Javid Riddle DO Status: Verified Ordered On: 05/23/24906 Start: 05/23/24906 Ordered Dose (Remaining/Total): 4 mg (--/--) Route: intravenous Frequency: Every 6 hours PRN Ordered Rate/Order Duration: -- / 2 Minutes (No admins scheduled or recorded for this medication) PS CONSULTANT * Plan of Care - Karla Fontenot MSW - 05/24/2024 9:16 AM CST Patient expected to SNF at in. Family does not want patient returning to [facility].Will update referred facilities via [facility]. 925am No new SNF referrals were placed prior. Sent referrals today. Choice pending. PS CONSULTANT PS CONSULTANT * Plan of Care - Harlan Moore RN - 05/24/2024 3:05 AM CST Goals: Clinical Goals for the Shift: VSS, Pain, Orientation, sitter, safety/rest Summary: Nursing to Nursing Communication IGNACIO: Expected Discharge Date Expected Discharge Date May 25, 2024 [place] Transport barriers: No PT/OT orders: Yes CM anticipated level of care: Anticipated discharge level of care: shelter facility (short term care) Mobility Barriers (i.e patient refusal, surgical restrictions, safety concerns, etc.): none. Lines/Drains: Peripheral IV 05/18/24 22 G Posterior;Right Hand (Active) Peripheral IV 05/21/24 Anterior;Distal;Left Brachial (Active) External Urinary Device (Active) Last BM: Last BM Date: 05/23/24 Medical Barriers: none. Incomplete Orders/Imaging/Consults: none. Significant events over the last shift: tylenol given for pain. Pt. Has sitter 1:1 for behavior. Rozerem given for sleeping aid. PS CONSULTANT * Plan of Care - Martha Cerda RRT - 05/23/2024 8:21 PM CST Problem: Asthma Goal: Patient will tolerate use of medications used to treat asthma Outcome: Progressing Problem: Respiratory Goal: Ability to maintain a clear airway will improve Outcome: Progressing Metered Dose Inhaler MDI given per physician order. The patient has been instructed on proper use and technique. The patient tolerates the treatment well with good technique. PS CONSULTANT * Plan of Care - Steven Iglesias RN - 05/23/2024 4:02 PM CST Problem: Fall Risk Goal: Ability to state ways to decrease the risk of falls will improve Outcome: Progressing Goal: Will remain free from injury from falls Outcome: Progressing Problem: Discharge Planning Goal: Understanding discharge needs will improve Outcome: Progressing Problem: Lack of Knowledge Goal: Ability to develop a pain control plan will improve Outcome: Progressing Goals: Clinical Goals for the Shift: VSS, Pain, safety/rest Summary: Nursing to Nursing Communication IGNACIO: Expected Discharge Date Expected Discharge Date May 25, 2024 [place] Transport barriers: No PT/OT orders: Yes CM anticipated level of care: Anticipated discharge level of care: shelter facility (short term care) Mobility Barriers (i.e patient refusal, surgical restrictions, safety concerns, etc.): n Lines/Drains: Peripheral IV 05/18/24 22 G Posterior;Right Hand (Active) Peripheral IV 05/21/24 Anterior;Distal;Left Brachial (Active) External Urinary Device (Active) Last BM: Last BM Date: 05/22/24 Medical Barriers: n Incomplete Orders/Imaging/Consults: Neurology Significant events over the last shift: VSS throughout shift. A&Ox2-3 throughout shift. Sitter continued. Pt resting in bed with bed alarm on. Family member at bedside. PS CONSULTANT * Plan of Care - Harlan Moore RN - 05/23/2024 3:04 AM CST Goals: Clinical Goals for the Shift: VSS, Pain, safety/rest Summary: Nursing to Nursing Communication IGNACIO: Expected Discharge Date Expected Discharge Date May 26, 2024 DC Transport barriers: No PT/OT orders: Yes CM anticipated level of care: Anticipated discharge level of care: shelter facility (short term care) Mobility Barriers (i.e patient refusal, surgical restrictions, safety concerns, etc.): none. Lines/Drains: Peripheral IV 05/18/24 22 G Posterior;Right Hand (Active) Peripheral IV 05/21/24 Anterior;Distal;Left Brachial (Active) External Urinary Device (Active) Last BM: Last BM Date: 05/22/24 Medical Barriers: none. Incomplete Orders/Imaging/Consults: none. Significant events over the last shift: pt. Has sitter 1:1, all meds given per MAR. PS CONSULTANT * Plan of Care - Casey Barnes RRT - 05/22/2024 8:36 PM CST Problem: Asthma Goal: Patient will tolerate use of medications used to treat asthma Outcome: Progressing Problem: Respiratory Goal: Ability to maintain a clear airway will improve Outcome: Progressing Metered Dose Inhaler MDI given per physician order. The patient has been instructed on proper use and technique. The patient tolerates the treatment well with good technique.Cough Patient has a strong cough on demand. Will continue to monitor sputum amount, color, and consistency. PS CONSULTANT * Plan of Care - Alexandria King RN - 05/22/2024 6:08 PM CST Problem: Asthma Goal: Patient will tolerate use of medications used to treat asthma Outcome: Progressing Problem: Skin Integrity Impairment Risk Goal: Mobility will improve Outcome: Progressing Goal: Understanding of ways to prevent future skin breakdown will improve Outcome: Progressing Goal: Nutritional status will improve Outcome: Progressing Goal: Risk for impaired skin integrity will decrease Outcome: Progressing Problem: Discharge Planning Goal: Understanding discharge needs will improve Outcome: Progressing Problem: Neurosensory Goal: Achieves stable or improved neurological status Outcome: Progressing Goal: Achieves maximal functionality and self care Outcome: Progressing Problem: Respiratory Goal: Ability to maintain a clear airway will improve Outcome: Progressing Problem: Musculoskeletal Goal: Return mobility to safest level of function Outcome: Progressing Goal: Return ADL status to a safe level of function Outcome: Progressing Problem: Gastrointestinal Goal: Maintains or returns to baseline bowel function Outcome: Progressing Problem: Fall Risk Goal: Ability to state ways to decrease the risk of falls will improve Outcome: Progressing Goal: Will remain free from falls Outcome: Progressing Goal: Will remain free from injury from falls Outcome: Progressing Problem: Lack of Knowledge Goal: Ability to develop a pain control plan will improve Outcome: Progressing Problem: Medication Goal: Satisfaction with pain management medication regimen will improve Outcome: Progressing Problem: Sensory Goal: Ability to identify factors that increase pain levels will improve while working to decrease the patient's pain levels Outcome: Progressing Problem: Coping Goal: Ability to cope will improve Outcome: Progressing Problem: Health Behavior Goal: Identification of resources available to assist in meeting health care needs will improve Outcome: Progressing Nursing to Nursing Communication IGNACIO: Expected Discharge Date Expected Discharge Date May 26, 2024 DC Transport barriers: No PT/OT orders: Yes CM anticipated level of care: Anticipated discharge level of care: shelter facility (short term care) Mobility Barriers (i.e patient refusal, surgical restrictions, safety concerns, etc.): None Lines/Drains: Peripheral IV 05/18/24 22 G Posterior;Right Hand (Active) Peripheral IV 05/21/24 Anterior;Distal;Left Brachial (Active) External Urinary Device (Active) Last BM: Last BM Date: 05/21/24 Medical Barriers: None Incomplete Orders/Imaging/Consults: none Goals: Clinical Goals for the Shift: Monitor VS, promote comfort, safety, and rest Summary: VSS throughout shift. A&Ox2-3 throughout shift. Sitter continued. Pt resting in bed with bed alarm on. PS CONSULTANT * Initial Assessments - Yogesh Carney, TITLE INSURANCE AGENT - 05/22/2024 10:41 AM DEVOPS CONSULTANT CM Initial Assessment Interview Note Information Obtained From: Adult child Name: Dominga Garner (05/22/24 1038) Admission Source: Transfer from [facility] Impression: Pt admitted for altered mental status. For this reason, SW completed assessment with dtr, Dominga, via telephone. Per Dominga, pt has dementia, but his current mental status is not at baseline. Family anticipates pt will need short term placement at SNF when he's discharged. Plan Includes: Neuro workup, PT eval, SNF referrals Primary Source of Transportation: Does the patient need discharge transport arranged?: No (Family to transport, if appropriate) (05/22/24 1038) Health Insurance Coverage: [employer] Medicare Prescription Coverage: Yes Pharmacy: [facility]/pharmacy #[id number] - [place], [place] - [address] [facility] [address] [facility] [address] [facility] Pharmacy Mail Delivery - [facility] [address] [facility] [address] [facility] [phone] Primary Care Provider: Sohan Rojas MD Prior to Admission: Functional Status: Independent with ADLs Primary Caregiver: Self Support System: Children Home Care Services: No Outpatient Services: No Durable Medical Equipment: None Living Arrangements: Alone Type of Residence: Private residence (05/22/24 1038) SDOH: Transportation: In the past 12 months, has lack of transportation kept you from medical appointments or from getting medications?: No In the past 12 months, has lack of transportation kept you from meetings, work, or from getting things needed for daily living?: No (05/22/24 1036) Financial Resource: How hard is it for you to pay for the very basics like food, housing, medical care, and heating?: Not hard at all (05/22/24 1036) Housing: In the last 12 months, was there a time when you were not able to pay the mortgage or rent on time?: No In the past 12 months, how many times have you moved where you were living?: 0 At any time in the past 12 months, were you homeless or living in a detention (including now)?: No (05/22/24 1037) Utilities: No, (05/22/24 1037) Social Connections: In a typical week, how many times do you talk on the phone with family, friends, or neighbors?: More than three times a week How often do you get together with friends or relatives?: More than three times a week How often do you attend scientology or christian services?: Never Do you belong to any clubs or organizations such as scientology groups, unions, fraternal or athletic groups, or school groups?: No How often do you attend meetings of the clubs or organizations you belong to?: Never Are you , , , , never , or living with a partner?: (05/22/24 1037) Food Insecurity: Within the past 12 months, you worried that your food would run out before you got the money to buymore.: Never true Within the past 12 months, the food you bought just didn't last and you didn't have money to get more.: Never true (05/22/24 1037) Behavioral Health Services: Behavioral Health Services: No (05/22/24 1038) Anticipated Level of Care: Anticipated discharge level of care: shelter facility (short term care) Pt/Family agrees with Anticipated Level of Care: Yes (05/22/24 1038) Patient expects to be Discharged to: Acute Rehab, (05/21/24 1101) Additional Information: Pt was discharged from [facility] to [facility] (SNF) on 05/19/2024. Pt was at the SNF for less than 24hrs before being sent to [facility] after falling at the SNF. According to Dominga, the pt was independent about 1 week ago. The pt resides alone, but his children assist with his IADLS. Dominga has been working with a dementia support group and has plans to tour [facility] this . Family is aware that the pt will likely discharge to SNF in the interim. Family does not want the pt to return to [facility]. They would prefer a SNF near [facility]. Dominga understands that SNF options will be limited by thept's payor ([employer]) and bed availability. Patient's Identified Problem/Goal Problem: Ensure acute medical needs are met and that patient has a safe discharge plan. Goal: Secure a discharge plan that patient/family are agreeable with and ensure patient has continuum of care. Case management will follow for discharge planning and send referrals as needed. Goals include: To assure continuity of care, To maximize coping skills, To assure patient is in a safe environment and To assure access to community resources. Plan includes: 1. Collaboration with Patient, Provider, Direct Care Nurse, Labor Utilization Superintendent, and other members of theHealth Care Team to assure needed interventions completed. 2. Return patient to optimal level of self-care post discharge. 3. Telescope Repairer will follow for Discharge Planning - interventions as needed 4. Anticipated level of care at discharge 5. Planned Discharge Disposition Yogesh Carney LCSW PS CONSULTANT * Plan of Care - Pippa Sanchez RRT - 05/22/2024 8:07 AM CST Problem: Asthma Goal: Patient will tolerate use of medications used to treat asthma Outcome: Progressing Problem: Respiratory Goal: Ability to maintain a clear airway will improve Outcome: Progressing Inhaled Bronchodilator Therapy Patient assessed and scored per the established inhaled bronchodilator protocol criteria. Patient preference and subjective response to therapy used in conjunction with patient score to provide current aerosol therapy. Metered Dose Inhaler MDI given per physician order. The patient has been instructed on proper use and technique. The patient tolerates the treatment well with good technique. PS CONSULTANT * Plan of Care - Harlan Moore RN - 05/22/2024 3:04 AM CST Goals: Clinical Goals for the Shift: VSS, Pain, safety/rest Summary: Nursing to Nursing Communication IGNACIO: DC Transport barriers: No PT/OT orders: Yes CM anticipated level of care: Mobility Barriers (i.e patient refusal, surgical restrictions, safety concerns, etc.): pt. Refused tylenol for neck pain. Lines/Drains: Peripheral IV 05/18/24 22 G Posterior;Right Hand (Active) Peripheral IV 05/21/24 Anterior;Distal;Left Brachial (Active) External Urinary Device (Active) Last BM: Last BM Date: 05/21/24 Medical Barriers: none. Incomplete Orders/Imaging/Consults: none. Significant events over the last shift: hydralazine given for high BP. All meds given per SEP. Pt. Has sitter 1:1 for behavior. PS CONSULTANT * Plan of Care - Neida York RRT - 05/21/2024 7:51 PM CST Problem: Asthma Goal: Patient will tolerate use of medications used to treat asthma Outcome: Progressing Problem: Respiratory Goal: Ability to maintain a clear airway will improve Outcome: Progressing Inhaled Bronchodilator Therapy Patient assessed and scored per the established inhaled bronchodilator protocol criteria. Patient preference and subjective response to therapy used in conjunction with patient score to provide current aerosol therapy.Metered Dose Inhaler MDI given per physician order. The patient has been instructed on proper use and technique. The patient tolerates the treatment well with good technique. PS CONSULTANT * Plan of Care - Shanti Morrison RN - 05/21/2024 5:36 PM CST Problem: Skin Integrity Impairment Risk Goal: Mobility will improve Outcome: Progressing Flowsheets (Taken 05/21/20241734) Mobility will improve: Encourage mobilization to extent of ability, assist with range of motion as needed Encourage turning and repositioning, assist as needed Collaborate with physical therapy Goal: Nutritional status will improve Outcome: Progressing Flowsheets (Taken 05/21/20241734) Nutritional status will improve: Assess nutritional status Encourage fluid intake Encourage nutritional intake Assist with appropriate dietary choices Monitor intake and output Problem: Discharge Planning Goal: Understanding discharge needs will improve Outcome: Progressing Flowsheets (Taken 05/21/20241734) Understanding of discharge needs will improve: Discuss information regarding discharge instructions Identify discharge learning needs (meds, wound care, etc.) Collaborate with case management interdisciplinary team Identify discharge barriers Goals: Clinical Goals for the Shift: Monitor vs,labs,I&O's,reorient frequently,PT/OT eval, fall precautions, dc planning Summary: Nursing to Nursing Communication IGNACIO: DC Transport barriers: No PT/OT orders: Yes CM anticipated level of care: Mobility Barriers (i.e patient refusal, surgical restrictions, safety concerns, etc.): STS Lines/Drains: Peripheral IV 05/18/24 22 G Posterior;Right Hand (Active) External Urinary Device (Active) [facility] Barriers: Incomplete Orders/Imaging/Consults: Significant events over the last shift: PS CONSULTANT documented in this encounter Plan of Treatment Not on file documented as of this encounter Procedures Procedure Name Priority Date/Time Associated Diagnosis Comments EGFR Routine 05/25/2024 11:28 AM DEVOPS CONSULTANT DIFFERENTIAL AUTO Routine 05/25/2024 11: 28 AM DEVOPS CONSULTANT CBC WITH AUTO DIFFERENTIAL Routine 05/25/2024 11:28 AM DEVOPS CONSULTANT BASIC METABOLIC PANEL Routine 05/25/2024 11:28 AM DEVOPS CONSULTANT EGFR Routine 05/24/2024 6:12 AM DEVOPS CONSULTANT DIFFERENTIAL AUTO Routine 05/24/2024 6:1 2 AM DEVOPS CONSULTANT CBC WITH AUTO DIFFERENTIAL Routine 05/24/2024 6:12 AM DEVOPS CONSULTANT BASIC METABOLIC PANEL Routine 05/24/2024 6:12 AM DEVOPS CONSULTANT EGFR Routine 05/23/2024 6:27 AM DEVOPS CONSULTANT DIFFERENTIAL AUTO Routine 05/23/2024 6:2 7 AM DEVOPS CONSULTANT CBC WITH AUTO DIFFERENTIAL Routine 05/23/2024 6:27 AM DEVOPS CONSULTANT BASIC METABOLIC PANEL Routine 05/23/2024 6:27 AM DEVOPS CONSULTANT EGFR Routine 05/22/2024 3:34 AM DEVOPS CONSULTANT DIFFERENTIAL AUTO Routine 05/22/2024 3:3 4 AM DEVOPS CONSULTANT CBC WITH AUTO DIFFERENTIAL Routine 05/22/2024 3:34 AM DEVOPS CONSULTANT BASIC METABOLIC PANEL Routine 05/22/2024 3:34 AM DEVOPS CONSULTANT EGFR Routine 05/21/2024 10:58 AM DEVOPS CONSULTANT COMPREHENSIVE METABOLIC PANEL Routine 05/21/2024 10:58 AM DEVOPS CONSULTANT documented in this encounter Results * eGFR (05/25/2024 11:28 AM DEVOPS CONSULTANT) eGFR 76 >=60 mL/min/1. 73 m2 Comment: [...] reviewed 2021. Blood 05/25/2024 11:2 8 AM DEVOPS CONSULTANT 05/25/2024 11:35 AM DEVOPS CONSULTANT us Marguerite Wolfe MD LAB BLOOD ORDERABLES Final Resul t [facility] [address] [place] [address] * Differential, auto (05/25/2024 11:28 AM DEVOPS CONSULTANT) Neutrophil abs 3.8 1.5 - 6.5 K/cumm Imm gran abs 0.0 0.0 - 0.1 K/cumm [facility] Lymphocyte abs 0.8 0.8 - 3.3 K/cumm [facility] Monocyte abs 0.5 0.2 - 0.8 K/cumm [facility] Eosinophil abs 0.3 0.0 - 0.5 K/cumm [facility] Basophil abs 0.0 0.0 - 0.1 K/cumm [facility] Neutrophil pct 69.8 % [facility] Comment: Interpretive Data Percent cell count reference ranges are not reported, since discordance with absolute values may lead to misinterpretation of CBC data. Current Interpretive Data was last revised on 2017. Imm gran pct 0.4 % [facility] Comment: Interpretive Data Percent cell count reference ranges are not reported, since discordance with absolute values may lead to misinterpretation of CBC data. Current Interpretive Data was last revised on 2017. Lymphocyte pct 15.1 % [facility] Comment: Interpretive Data Percent cell count reference ranges are not reported, since discordance with absolute values may lead to misinterpretation of CBC data. Current Interpretive Data was last revised on 2017. Monocyte pct 9.1 % [facility] Comment: Interpretive Data Percent cell count reference ranges are not reported, since discordance with absolute values may lead to misinterpretation of CBC data. Current Interpretive Data was last revised on 2017. Eosinophil pct 4.9 % [facility] Comment: Interpretive Data Percent cell count reference ranges are not reported, since discordance with absolute values may lead to misinterpretation of CBC data. Current Interpretive Data was last revised on 2017. Basophil pct 0.7 % [facility] Comment: Interpretive Data Percent cell count reference ranges are not reported, since discordance with absolute values may lead to misinterpretation of CBC data. Current Interpretive Data was last revised on 2017. Blood 05/25/2024 11:2 8 AM DEVOPS CONSULTANT 05/25/2024 11:36 AM DEVOPS CONSULTANT us Marguerite Wolfe MD LAB BLOOD ORDERABLES Final Resul t [facility] [address] Department of Laboratories [place], [place] [id number] * (ABNORMAL) CBC with auto differential (05/25/2024 11:28 AM DEVOPS CONSULTANT) WBC 5.5 3.8 - 9.9 K/cumm Hgb 10.8(L) 13.0 - 17.5 g/dL [facility] Hct 32.1(L) 38.9 - 50.3 % [facility] Plt 203 150 - 400 K/cumm [facility] MPV 9.6 9.1 - 12.3 fL [facility] RBC 3.29(L) 4.30 - 5.80 M/cumm [facility] MCV 97.6(H) 81.3 - 96.4 fL [facility] MCH 32.8 27.1 - 33.3 pg [facility] MCHC 33.6 32.3 - 35.7 g/dL [facility] RDW CV 12.4 11.1 - 14.9 % [facility] RDW SD 44.0 35.7 - 48.1 fL [facility] NRBC abs 0.00 0.00 - 0.01 K/cumm [facility] Blood 05/25/2024 11:2 8 AM DEVOPS CONSULTANT 05/25/2024 11:36 AM DEVOPS CONSULTANT Marguerite Wolfe MD LAB BLOOD ORDERABLES Final Resul t Performing Organization Address [facility] Co de Phone Number [facility] [address] Department [place] [address] * Basic metabolic panel (05/25/2024 11:28 AM DEVOPS CONSULTANT) [facility] Sodium 135 135 - 145 mmol/L Potassium, pl 4.2 3.3 - 4.9 mmol/L [facility] Chloride 103 97 - 110 mmol/L [facility] CO2 23 22 - 32 mmol/L [facility] Anion gap 9 2 - 15 mmol/L [facility] BUN 19 6 - 25 mg/dL [facility] Creatinine 0.99 0.80 - 1.30 mg/dL [facility] Glucose 108 70 - 199 mg/dL [facility] Comment: Interpretive Data Fasting glucose >/= 126 [...] 2022. Calcium 8.8 8.5 - 10.3 mg/dL [facility] Blood 05/25/2024 11:2 8 AM DEVOPS CONSULTANT 05/25/2024 11:35 AM DEVOPS CONSULTANT Marguerite Wolfe MD LAB BLOOD ORDERABLES Final Resul t Performing Organization Address [facility] Co de Phone Number [facility] [address] Department [place] [address] * eGFR (05/24/2024 6:12 AM DEVOPS CONSULTANT) [facility] eGFR 70 >=60 mL/min/1. 73 m2 Comment: [...] last reviewed 2021. Blood 05/24/2024 6:12 AM DEVOPS CONSULTANT 05/24/2024 6:32 AM DEVOPS CONSULTANT us Marguerite Wolfe MD LAB BLOOD ORDERABLES Final Resul t [facility] [address] [place] [address] * Differential, auto (05/24/2024 6:12 AM DEVOPS CONSULTANT) Neutrophil abs 2.3 1.5 - 6.5 K/cumm Imm gran abs 0.0 0.0 - 0.1 K/cumm [facility] Lymphocyte abs 1.2 0.8 - 3.3 K/cumm [facility] Monocyte abs 0.4 0.2 - 0.8 K/cumm [facility] Eosinophil abs 0.3 0.0 - 0.5 K/cumm [facility] Basophil abs 0.0 0.0 - 0.1 K/cumm [facility] Neutrophil pct 54.7 % [facility] Comment: Interpretive Data Percent cell count reference ranges are not reported, since discordance with absolute values may lead to misinterpretation of CBC data. Current Interpretive Data was last revised on 2017. Imm gran pct 0.2 % [facility] Comment: Interpretive Data Percent cell count reference ranges are not reported, since discordance with absolute values may lead to misinterpretation of CBC data. Current Interpretive Data was last revised on 2017. Lymphocyte pct 29.3 % [facility] Comment: Interpretive Data Percent cell count reference ranges are not reported, since discordance with absolute values may lead to misinterpretation of CBC data. Current Interpretive Data was last revised on 2017. Monocyte pct 8.6 % [facility] Comment: Interpretive Data Percent cell count reference ranges are not reported, since discordance with absolute values may lead to misinterpretation of CBC data. Current Interpretive Data was last revised on 2017. Eosinophil pct 6.5 % [facility] Comment: Interpretive Data Percent cell count reference ranges are not reported, since discordance with absolute values may lead to misinterpretation of CBC data. Current Interpretive Data was last revised on 2017. Basophil pct 0.7 % [facility] Comment: Interpretive Data Percent cell count reference ranges are not reported, since discordance with absolute values may lead to misinterpretation of CBC data. Current Interpretive Data was last revised on 2017. Blood 05/24/2024 6:12 AM DEVOPS CONSULTANT 05/24/2024 6:37 AM DEVOPS CONSULTANT us Marguerite Wolfe MD LAB BLOOD ORDERABLES Final Resul t [facility] [address] Department [place] [address] * (ABNORMAL) CBC with auto differential (05/24/2024 6:12 AM DEVOPS CONSULTANT) WBC 4.2 3.8 - 9.9 K/cumm Hgb 11.4(L) 13.0 - 17.5 g/dL [facility] Hct 32.6(L) 38.9 - 50.3 % [facility] Plt 209 150 - 400 K/cumm [facility] MPV 9.2 9.1 - 12.3 fL [facility] RBC 3.46(L) 4.30 - 5.80 M/cumm [facility] MCV 94.2 81.3 - 96.4 fL [facility] MCH 32.9 27.1 - 33.3 pg [facility] MCHC 35.0 32.3 - 35.7 g/dL [facility] RDW CV 12.0 11.1 - 14.9 % [facility] RDW SD 41.9 35.7 - 48.1 fL [facility] NRBC abs 0.00 0.00 - 0.01 K/cumm [facility] Blood 05/24/2024 6:12 AM DEVOPS CONSULTANT 05/24/2024 6:37 AM DEVOPS CONSULTANT us Marguerite Wolfe MD LAB BLOOD ORDERABLES Final Resul t [facility] [address] Department [place] [address] * Basic metabolic panel (05/24/2024 6:12 AM DEVOPS CONSULTANT) Sodium 138 135 - 145 mmol/L Potassium, pl 3.8 3.3 - 4.9 mmol/L [facility] Chloride 102 97 - 110 mmol/L [facility] CO2 24 22 - 32 mmol/L [facility] Anion gap 12 2 - 15 mmol/L [facility] BUN 18 6 - 25 mg/dL [facility] Creatinine 1.06 0.80 - 1.30 mg/dL [facility] Glucose 111 70 - 199 mg/dL [facility] Comment: Interpretive Data Fasting glucose >/= 126 [...] classification and Diagnosis of Diabetes Diabetes Care ; 46: S19-S40. Current interpretive data was last revised 2022. Calcium 9.1 8.5 - 10.3 mg/dL [facility] Blood 05/24/2024 6:12 AM DEVOPS CONSULTANT 05/24/2024 6:32 AM DEVOPS CONSULTANT us Marguerite Wolfe MD LAB BLOOD ORDERABLES Final Resul t [facility] [address] Department [place] [address] * eGFR (05/23/2024 6:27 AM DEVOPS CONSULTANT) eGFR 78 >=60 mL/min/1. 73 m2 Comment: [...] last reviewed 2021. Blood 05/23/2024 6:27 AM DEVOPS CONSULTANT 05/23/2024 6:40 AM DEVOPS CONSULTANT us Marguerite Wolfe MD LAB BLOOD ORDERABLES Final Resul t [facility] [address] [place] [address] * Differential, auto (05/23/2024 6:27 AM DEVOPS CONSULTANT) Neutrophil abs 3.0 1.5 - 6.5 K/cumm Imm gran abs 0.0 0.0 - 0.1 K/cumm [facility] Lymphocyte abs 1.3 0.8 - 3.3 K/cumm [facility] Monocyte abs 0.5 0.2 - 0.8 K/cumm [facility] Eosinophil abs 0.2 0.0 - 0.5 K/cumm [facility] Basophil abs 0.0 0.0 - 0.1 K/cumm [facility] Neutrophil pct 59.7 % [facility] Comment: Interpretive Data Percent cell count reference ranges are not reported, since discordance with absolute values may lead to misinterpretation of CBC data. Current Interpretive Data was last revised on 2017. Imm gran pct 0.2 % [facility] Comment: Interpretive Data Percent cell count reference ranges are not reported, since discordance with absolute values may lead to misinterpretation of CBC data. Current Interpretive Data was last revised on 2017. Lymphocyte pct 25.6 % [facility] Comment: Interpretive Data Percent cell count reference ranges are not reported, since discordance with absolute values may lead to misinterpretation of CBC data. Current Interpretive Data was last revised on 2017. Monocyte pct 9.1 % [facility] Comment: Interpretive Data Percent cell count reference ranges are not reported, since discordance with absolute values may lead to misinterpretation of CBC data. Current Interpretive Data was last revised on 2017. Eosinophil pct 4.6 % [facility] Comment: Interpretive Data Percent cell count reference ranges are not reported, since discordance with absolute values may lead to misinterpretation of CBC data. Current Interpretive Data was last revised on 2017. Basophil pct 0.8 % [facility] Comment: Interpretive Data Percent cell count reference ranges are not reported, since discordance with absolute values may lead to misinterpretation of CBC data. Current Interpretive Data was last revised on 2017. Blood 05/23/2024 6:27 AM DEVOPS CONSULTANT 05/23/2024 6:39 AM DEVOPS CONSULTANT Marguerite Wolfe MD LAB BLOOD ORDERABLES Final Resul t Performing Organization Address [facility] Co de Phone Number [facility] [address] [place], [place] [id number] * (ABNORMAL) CBC with auto differential (05/23/2024 6:27 AM DEVOPS CONSULTANT) [facility] WBC 5.0 3.8 - 9.9 K/cumm Hgb 11.2(L) 13.0 - 17.5 g/dL [facility] Hct 32.0(L) 38.9 - 50.3 % [facility] Plt 202 150 - 400 K/cumm [facility] MPV 9.4 9.1 - 12.3 fL [facility] RBC 3.42(L) 4.30 - 5.80 M/cumm [facility] MCV 93.6 81.3 - 96.4 fL [facility] MCH 32.7 27.1 - 33.3 pg [facility] MCHC 35.0 32.3 - 35.7 g/dL [facility] RDW CV 11.9 11.1 - 14.9 % [facility] RDW SD 41.1 35.7 - 48.1 fL [facility] NRBC abs 0.00 0.00 - 0.01 K/cumm [facility] Blood 05/23/2024 6:27 AM DEVOPS CONSULTANT 05/23/2024 6:39 AM DEVOPS CONSULTANT Marguerite Wolfe MD LAB BLOOD ORDERABLES Final Resul t Performing Organization Address [facility] Co de Phone Number [facility] [address] Department [employer] [place], [place] [id number] * Basic metabolic panel (05/23/2024 6:27 AM DEVOPS CONSULTANT) Pathologist [facility] Sodium 135 135 - 145 mmol/L Potassium, pl 3.6 3.3 - 4.9 mmol/L [facility] Chloride 100 97 - 110 mmol/L [facility] CO2 23 22 - 32 mmol/L [facility] Anion gap 12 2 - 15 mmol/L [facility] BUN 22 6 - 25 mg/dL [facility] Creatinine 0.97 0.80 - 1.30 mg/dL [facility] Glucose 100 70 - 199 mg/dL [facility] Comment: Interpretive Data Fasting glucose >/= 126 [...] 2022. Calcium 8.9 8.5 - 10.3 mg/dL [facility] Blood 05/23/2024 6:27 AM DEVOPS CONSULTANT 05/23/2024 6:40 AM DEVOPS CONSULTANT us Marguerite Wolfe MD LAB BLOOD ORDERABLES Final Resul t [facility] [address] [place] [address] * eGFR (05/22/2024 3:34 AM DEVOPS CONSULTANT) Pathologist [facility] eGFR 89 >=60 mL/min/1. 73 m2 Comment: [...] last reviewed 2021. Blood 05/22/2024 3:34 AM DEVOPS CONSULTANT 05/22/2024 5:12 AM DEVOPS CONSULTANT us Marguerite Wolfe MD LAB BLOOD ORDERABLES Final Resul t [facility] [address] [place] [address] * Differential, auto (05/22/2024 3:34 AM DEVOPS CONSULTANT) Neutrophil abs 4.1 1.5 - 6.5 K/cumm Imm gran abs 0.0 0.0 - 0.1 K/cumm [facility] Lymphocyte abs 1.0 0.8 - 3.3 K/cumm [facility] Monocyte abs 0.6 0.2 - 0.8 K/cumm [facility] Eosinophil abs 0.1 0.0 - 0.5 K/cumm [facility] Basophil abs 0.1 0.0 - 0.1 K/cumm [facility] Neutrophil pct 70.6 % [facility] Comment: Interpretive Data Percent cell count reference ranges are not reported, since discordance with absolute values may lead to misinterpretation of CBC data. Current Interpretive Data was last revised on 2017. Imm gran pct 0.2 % [facility] Comment: Interpretive Data Percent cell count reference ranges are not reported, since discordance with absolute values may lead to misinterpretation of CBC data. Current Interpretive Data was last revised on 2017. Lymphocyte pct 16.8 % [facility] Comment: Interpretive Data Percent cell count reference ranges are not reported, since discordance with absolute values may lead to misinterpretation of CBC data. Current Interpretive Data was last revised on 2017. Monocyte pct 9.4 % [facility] Comment: Interpretive Data Percent cell count reference ranges are not reported, since discordance with absolute values may lead to misinterpretation of CBC data. Current Interpretive Data was last revised on 2017. Eosinophil pct 2.1 % [facility] Comment: Interpretive Data Percent cell count reference ranges are not reported, since discordance with absolute values may lead to misinterpretation of CBC data. Current Interpretive Data was last revised on 2017. Basophil pct 0.9 % [facility] Comment: Interpretive Data Percent cell count reference ranges are not reported, since discordance with absolute values may lead to misinterpretation of CBC data. Current Interpretive Data was last revised on 2017. Blood 05/22/2024 3:34 AM DEVOPS CONSULTANT 05/22/2024 5:11 AM DEVOPS CONSULTANT Eddie Acosta DO LAB BLOOD ORDERABLES F inal Result [facility] [address] [place] [address] * (ABNORMAL) Basic metabolic panel (05/22/2024 3:34 AM DEVOPS CONSULTANT) Sodium 133(L) 135 - 145 mmol/L Potassium, pl 3.3 3.3 - 4.9 mmol/L [facility] Chloride 96(L) 97 - 110 mmol/L [facility] CO2 23 22 - 32 mmol/L [facility] Anion gap 14 2 - 15 mmol/L [facility] BUN 23 6 - 25 mg/dL [facility] Creatinine 0.77(L) 0.80 - 1.30 mg/dL [facility] Glucose 101 70 - 199 mg/dL [facility] Comment: Interpretive Data Fasting glucose >/= 126 [...] 2022. Calcium 9.1 8.5 - 10.3 mg/dL [facility] Blood 05/22/2024 3:34 AM DEVOPS CONSULTANT 05/22/2024 5:12 AM DEVOPS CONSULTANT us Marguerite Wolfe MD LAB BLOOD ORDERABLES Final Resul t [facility] [address] [place] [address] * (ABNORMAL) CBC with auto differential (05/22/2024 3:34 AM DEVOPS CONSULTANT) WBC 5.8 3.8 - 9.9 K/cumm Hgb 11.6(L) 13.0 - 17.5 g/dL [facility] Hct 32.9(L) 38.9 - 50.3 % [facility] Plt 197 150 - 400 K/cumm [facility] MPV 9.9 9.1 - 12.3 fL [facility] RBC 3.50(L) 4.30 - 5.80 M/cumm [facility] MCV 94.0 81.3 - 96.4 fL [facility] MCH 33.1 27.1 - 33.3 pg [facility] MCHC 35.3 32.3 - 35.7 g/dL [facility] RDW CV 12.0 11.1 - 14.9 % [facility] RDW SD 41.3 35.7 - 48.1 fL [facility] NRBC abs 0.00 0.00 - 0.01 K/cumm [facility] Blood 05/22/2024 3:34 AM DEVOPS CONSULTANT 05/22/2024 5:11 AM DEVOPS CONSULTANT Eddie Acosta DO LAB BLOOD ORDERABLES F inal Result Performing Organization Address [facility] Co de Phone Number [facility] [address] Department [place] [address] * eGFR (05/21/2024 10:58 AM DEVOPS CONSULTANT) eGFR 90 >=60 mL/min/1. 73 m2 Comment: [...] reviewed 2021. Blood 05/21/2024 10:5 8 AM DEVOPS CONSULTANT 05/21/2024 11:47 AM DEVOPS CONSULTANT Eddie Acosta DO LAB BLOOD ORDERABLES F inal Result [facility] [address] [place] [address] * (ABNORMAL) Comprehensive metabolic panel (05/21/2024 10:58 AM DEVOPS CONSULTANT) Sodium 136 135 - 145 mmol/L Potassium, pl 4.6 3.3 - 4.9 mmol/L [facility] Chloride 98 97 - 110 mmol/L [facility] CO2 25 22 - 32 mmol/L [facility] Anion gap 13 2 - 15 mmol/L [facility] BUN 20 6 - 25 mg/dL [facility] Creatinine 0.75(L) 0.80 - 1.30 mg/dL [facility] Glucose 115 70 - 199 mg/dL [facility] Comment: Interpretive Data Fasting glucose >/= 126 [...] 2022. Calcium 9.4 8.5 - 10.3 mg/dL [facility] Bilirubin, total 0.6 0.1 - 1.2 mg/dL [facility] Protein, pl 6.9 6.5 - 8.5 g/dL [facility] Albumin 3.9 3.5 - 5.0 g/dL [facility] Alk phos 55 40 - 130 Units/L [facility] ALT 25 7 - 55 Units/L [facility] AST 33 10 - 50 Units/L [facility] Blood 05/21/2024 10:5 8 AM DEVOPS CONSULTANT 05/21/2024 11:47 AM DEVOPS CONSULTANT Eddie Acosta DO LAB BLOOD ORDERABLES F inal Result Performing Organization Address [facility]/ZIP Co de Phone Number [facility] [address] [place] [address] documented in this encounter Visit Diagnoses Diagnosis AMS (altered mental status)- Primary Abnormality of gait and mobility Anemia, unspecified type [D64.9] Balance problem [R26.89] Abnormality of gait Chronic pain syndrome [G89.4] Chronic pain syndrome Hypercholesterolemia Pure hypercholesterolemia 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 behavioral disturbance, psychotic disturbance, mood disturbance, or anxiety (HCC) Prostate cancer (HCC) Malignant neoplasm of prostate NPH (normal pressure hydrocephalus) (HCC) Idiopathic normal pressure hydrocephalus (INPH) documented in this encounter Admitting Diagnoses Diagnosis AMS (altered mental status) documented in this encounter Administered Medications Inactive Administered Medications - up to 3 most recent administrations Medication Order MAR Action Action Date Dose Rate Site acetaminophen (TYLENOL) tablet 650 mg 650 mg, oral, Every 6 hours PRN, 1st line for pain, Starting on 05/21/24 at 0814, Indications: PainIndications:Pain Given 05/28/2024 8:31 PM DEVOPS CONSULTANT 650 mg Given 05/27/2024 8:57 PM DEVOPS CONSULTANT 650 mg Given 05/25/2024 10:43 PM DEVOPS CONSULTANT 650 mg albuterol HFA (PROVENTIL HFA,VENTOLIN HFA,PROAIR HFA) 90 mcg/actuation inhaler 2 puff 2 puff, inhalation, Every 4 hours PRN (correspondence clerk), wheezing, shortness of breath, Starting on 05/21/24 at 0857, Indications: Bronchospasm PreventionIndications:Bronchospasm Prevention Given 05/27/2024 1:17 AM DEVOPS CONSULTANT 2 puffs Given 05/24/2024 7:24 PM DEVOPS CONSULTANT 2 puffs atorvastatin (LIPITOR) tablet 20 mg 20 mg, oral, Daily, First dose on 05/21/24 at 0900 Given 05/29/2024 8:57 AM DEVOPS CONSULTANT 20 mg Given 05/28/2024 8:33 AM DEVOPS CONSULTANT 20 mg Given 05/27/2024 7:49 AM DEVOPS CONSULTANT 20 mg bisacodyL (DULCOLAX) suppository 10 mg 10 mg, rectal, Daily PRN, constipation, if no results 24 hours after polyethylene glycol administration, Starting on 05/21/24 at 0548, Administer if not tolerating PO., Indications: constipationIndications:constipation bisacodyl EC (DULCOLAX EC) tablet 10 mg 10 mg, oral, Daily PRN, constipation, if no results 24 hours after polyethylene glycol administration, Starting on 05/21/24 at 0548, Administer if tolerating PO. Do not crush, chew, cut, dissolve, open or otherwise manipulate tablet/capsule., Indications: constipationIndications:constipation budesonide-formoteroL (SYMBICORT) 80-4.5 mcg/actuation inhaler 2 puff 2 puff, inhalation, 2 times daily (correspondence clerk), First dose on 05/21/24 at 0900 Given 05/29/2024 7:21 AM DEVOPS CONSULTANT 2 p uffs Given 05/28/2024 7:38 PM DEVOPS CONSULTANT 2 puffs Given 05/28/2024 7:22 AM DEVOPS CONSULTANT 2 puffs docusate sodium (COLACE) capsule 100 mg 100 mg, oral, 2 times daily, First dose on 05/21/24 at 0900, Indications: constipation, Stool SoftenerIndications:constipation,Stool Softener Given 05/29/2024 8:57 AM DEVOPS CONSULTANT 100 mg Given 05/28/2024 8:31 PM DEVOPS CONSULTANT 100 mg Given 05/28/2024 8:33 AM DEVOPS CONSULTANT 100 mg donepeziL (ARICEPT) tablet 10 mg 10 mg, oral, Nightly, First dose on 05/21/24 at 2100, Indications: Mild to Moderate Alzheimer's Type DementiaIndications:Mild to Moderate Alzheimer's Type Dementia Given 05/28/2024 8:31 PM DEVOPS CONSULTANT 10 mg Given 05/27/2024 8:57 PM DEVOPS CONSULTANT 10 mg Given 05/26/2024 8:01 PM DEVOPS CONSULTANT 10 mg enoxaparin (LOVENOX) syringe 40 mg 40 mg, subcutaneous, Daily (for enoxaparin), First dose on 05/21/24 at 2100, Indications: Deep Vein Thrombosis PreventionIndications:Deep Vein Thrombosis Prevention Given 05/28/2024 8:31 PM DEVOPS CONSULTANT 40 mg Left Lower Abdomen Given 05/27/2024 8:59 PM DEVOPS CONSULTANT 40 mg Le ft Lower Abdomen Given 05/26/2024 8:02 PM DEVOPS CONSULTANT 40 mg Le ft Lower Abdomen escitalopram (LEXAPRO) tablet 10 mg 10 mg, oral, Daily, First dose on 05/21/24 at 0900 Given 05/29/2024 8:57 AM DEVOPS CONSULTANT 10 mg Given 05/28/2024 8:33 AM DEVOPS CONSULTANT 10 mg Given 05/27/2024 7:49 AM DEVOPS CONSULTANT 10 mg finasteride (PROSCAR) tablet 5 mg 5 mg, oral, Daily, First dose on 05/21/24 at 0900, Do not crush, break, or open. Given 05/29/2024 8:57 AM DEVOPS CONSULTANT 5 mg Given 05/28/2024 8:33 AM DEVOPS CONSULTANT 5 mg Given 05/27/2024 7:49 AM DEVOPS CONSULTANT 5 mg hydrALAZINE (APRESOLINE) injection 10 mg 10 mg, intravenous, Administer over 2 Minutes, Every 4 hours PRN, high blood pressure, SBP > 180, Starting on Wed05/21/24 at 0449 Given 05/21/2024 9:42 PM DEVOPS CONSULTANT 10 mg Given 05/21/2024 5:10 AM DEVOPS CONSULTANT 10 mg ondansetron (ZOFRAN) injection 4 mg 4 mg, intravenous, Administer over 2 Minutes, Every 6 hours PRN, nausea, vomiting, Starting on Wed05/23/[address] (PROTONIX) extended release tablet 40 mg 40 mg, oral, Daily, First dose on 05/21/24 at 0900, Do not crush, chew, cut, dissolve, open or otherwise manipulate tablet/capsule., Indications: Mucositis ProphylaxisIndications:Mucositis Prophylaxis Given 05/29/2024 8:57 AM DEVOPS CONSULTANT 40 mg Given 05/28/2024 8:33 AM DEVOPS CONSULTANT 40 mg Given 05/27/2024 7:49 AM DEVOPS CONSULTANT 40 mg polyethylene glycol (MIRALAX) packet 17 g 17 g, oral, Daily PRN, constipation, Starting on 05/21/24 at 0548, Indications: constipationIndications:constipation ramelteon (ROZEREM) tablet 8 mg 8 mg, oral, Nightly PRN, sleep, Starting on 05/21/24 at 0548, Indications: Sleep-Onset InsomniaIndications:Sleep-Onset Insomnia Given 05/28/2024 8:31 PM DEVOPS CONSULTANT 8 m g Given 05/27/2024 8:57 PM DEVOPS CONSULTANT 8 mg Given 05/23/2024 7:12 PM DEVOPS CONSULTANT 8 mg tamsulosin (FLOMAX) extended release capsule 0.4 mg 0.4 mg, oral, Daily, First dose on 05/21/24 at 0900, Do not crush, chew, cut, dissolve, open or otherwise manipulate tablet/capsule. Given 05/29/2024 8:57 AM DEVOPS CONSULTANT 0.4 mg Given 05/28/2024 8:33 AM DEVOPS CONSULTANT 0.4 mg Given 05/27/2024 7:49 AM DEVOPS CONSULTANT 0.4 mg traZODone (DESYREL) tablet 25 mg 25 mg, oral, Nightly, First dose on Wed05/24/24 at 2100 Given 05/28/2024 8:31 PM DEVOPS CONSULTANT 25 mg Given 05/27/2024 8:57 PM DEVOPS CONSULTANT 25 mg Given 05/26/2024 8:01 PM DEVOPS CONSULTANT 25 mg documented in this encounter Discontinued Medications Medication Sig Discontinue Reason Start Date End Da te traMADoL (ULTRAM) 50 mg tablet TAKE 1 TABLET BY MOUTH EVERY 6 HOURS NEEDED FOR PAIN X 5 DAYS 12/28/2023 05/21/2024 triamcinolone (KENALOG) 0.1 % cream PLEASE SEE ATTACHED FOR DETAILED DIRECTIONS 05/21/2024 Sodium Fluoride 5000 Dry Mouth 1.1 % paste 07/23/2023 05/21/2024 docusate sodium (COLACE) 100 mg capsuleIndications:co nstipation,Stool Softener Take 1 capsule (100 mg total) by mouth 2 (two) times a day 05/19/2024 05/21/2024 senna (SENOKOT) 8.6 mg tabletIndications:con stipation Take 1 tablet by mouth 2 (two) times a day 05/19/2024 05/21/2024 docusate sodium (COLACE) 100 mg capsuleIndications:co nstipation Take 1 capsule (100 mg total) by mouth 2 (two) times a day as needed for constipation 05/21/2024 tamsulosin (FLOMAX) 0.4 mg extended release capsule Take 1 capsule (0.4 mg total) by mouth daily 09/23/2022 05/21/2024 documented as of this encounter Historical Medications * This list may reflect changes made after this encounter. multivitamin with minerals tablet Take 1 tablet by mouth daily tamsulosin (FLOMAX) 0.4 mg extended release capsule Take 1 capsule (0.4 mg total) by mouth daily 4 docusate sodium (COLACE) 100 mg capsuleIndicatio ns:constipation Take 1 capsule (100 mg total) by mouth 2 (two) times a day as needed for constipation 4 terbinafine (LamiSIL) 250 mg tablet Take 1 tablet (250 mg total) by mouth daily 05/01/2024 4 added in this encounter Active and Recently Administered Medications Times are shown in DEVOPS CONSULTANT. Scheduled Medication Order 05/27/2024 05/28/2024 05/29/2024 atorvastatin (LIPITOR) tablet 20 mg 20 mg, oral, Daily, First dose on 05/21/24 at 0900 0749 (Given - Provider: Elias Stiles RN) 0833 (Given - Provider: Elias Stiles RN) 0857 (Given - Provider: Jackie Rueda, EAN) budesonide-formoteroL (SYMBICORT) 80-4.5 mcg/actuation inhaler 2 puff 2 puff, inhalation, 2 times daily (correspondence clerk), First dose on 05/21/24 at 0900 0728 (Given - Provider: Javid Zazueta RRT)2021 (Given - Provider: Yanely Muro RRT) 0722 (Given - Provider: Javid Zazueta RRT)193 (Given - Provider: Yanely Muro RRT) 0721 (Given - Provider: Javid Zazueta, CHRIS) docusate sodium (COLACE) capsule 100 mg 100 mg, oral, 2 times daily, First dose on 05/21/24 at 0900, Indications: constipation, Stool Softener 0800 (Given - Provider: Elias Stiles RN)2056 (Given - Provider: Deepa Silverman, EAN) 0833 (Given - Provider: Elias Stiles RN)2030 (Given - Provider: Deepa Silverman RN) 0857 (Given - Provider: Jackie Rueda, EAN) donepeziL (ARICEPT) tablet 10 mg 10 mg, oral, Nightly, First dose on 05/21/24 at 2100, Indications: Mild to Moderate Alzheimer's Type Dementia 2056 (Given - Provider: Deepa Silverman RN) 2030 (Given - Provider: Deepa Silverman, EAN) enoxaparin (LOVENOX) syringe 40 mg 40 mg, subcutaneous, Daily (for enoxaparin), First dose on 05/21/24 at 2100, Indications: Deep Vein Thrombosis Prevention 2058 (Given - Provider: Deepa Silverman, EAN) 2030 (Given - Provider: Deepa Silverman, EAN) escitalopram (LEXAPRO) tablet 10 mg 10 mg, oral, Daily, First dose on 05/21/24 at 0900 0749 (Given - Provider: Elias Stiles RN) 0833 (Given - Provider: Elias Stiles RN) 0857 (Given - Provider: Jackie Rueda, EAN) finasteride (PROSCAR) tablet 5 mg 5 mg, oral, Daily, First dose on 05/21/24 at 0900, Do not crush, break, or open. 0749 (Given - Provider: Elias Stiles RN) 0833 (Given - Provider: Elias Stiles RN) 0857 (Given - Provider: Jackie Rueda RN) pantoprazole DR (PROTONIX) extended release tablet 40 mg 40 mg, oral, Daily, First dose on 05/21/24 at 0900, Do not crush, chew, cut, dissolve, open or otherwise manipulate tablet/capsule., Indications: Mucositis Prophylaxis 0749 (Given - Provider: Elias Stiles RN) 0833 (Given - Provider: Elias Stiles RN) 0857 (Given - Provider: Jackie Rueda RN) tamsulosin (FLOMAX) extended release capsule 0.4 mg 0.4 mg, oral, Daily, First dose on 05/21/24 at 0900, Do not crush, chew, cut, dissolve, open or otherwise manipulate tablet/capsule. 0749 (Given - Provider: Elias Stiles RN) 0833 (Given - Provider: Elias Stiles RN) 0857 (Given - Provider: Jackie Rueda RN) traZODone (DESYREL) tablet 25 mg 25 mg, oral, Nightly, First dose on Wed05/24/24 at 2100 2056 (Given - Provider: Deepa Silverman, EAN) 2030 (Given - Provider: Deepa Silverman, RN) PRN Medication Order 05/27/2024 05/28/2024 05/29/2024 acetaminophen (TYLENOL) tablet 650 mg 650 mg, oral, Every 6 hours PRN, 1st line for pain, Starting on 05/21/24 at 0814, Indications: Pain 2056 (Given - Provider: Deepa Silverman, EAN) 2030 (Given - Provider: Deepa Silverman, RN) albuterol HFA (PROVENTIL HFA,VENTOLIN HFA,PROAIR HFA) 90 mcg/actuation inhaler 2 puff 2 puff, inhalation, Every 4 hours PRN (correspondence clerk), wheezing, shortness of breath, Starting on 05/21/24 at 0857, Indications: Bronchospasm Prevention 0117 (Given - Provider: Yanely Muro, CHRIS) bisacodyL (DULCOLAX) suppository 10 mg(Linked Group 1) 10 mg, rectal, Daily PRN, constipation, if no results 24 hours after polyethylene glycol administration, Starting on 05/21/24 at 0548, Administer if not tolerating PO., Indications: constipation bisacodyl EC (DULCOLAX EC) tablet 10 mg(Linked Group 1) 10 mg, oral, Daily PRN, constipation, if no results 24 hours after polyethylene glycol administration, Starting on 05/21/24 at 0548, Administer if tolerating PO. Do not crush, chew, cut, dissolve, open or otherwise manipulate tablet/capsule., Indications: constipation hydrALAZINE (APRESOLINE) injection 10 mg 10 mg, intravenous, Administer over 2 Minutes, Every 4 hours PRN, high blood pressure, SBP > 180, Starting on Wed05/21/24 at 0449 ondansetron (ZOFRAN) injection 4 mg 4 mg, intravenous, Administer over 2 Minutes, Every 6 hours PRN, nausea, vomiting, Starting on Tu05/23/24 at 0907 polyethylene glycol (MIRALAX) packet 17 g 17 g, oral, Daily PRN, constipation, Starting on Wed05/21/24 at 0548, Indications: constipation ramelteon (ROZEREM) tablet 8 mg 8 mg, oral, Nightly PRN, sleep, Starting on 05/21/24 at 0548, Indications: Sleep-Onset Insomnia 2056 (Given - Provider: Deepa Silverman, EAN) 2030 (Given - Provider: Deepa Silverman, EAN) Linked Groups Order Group 1: bisacodyl EC (DULCOLAX EC) tablet 10 mgJump to med 10 mg, oral, Daily PRN, constipation, if no results 24 hours after polyethylene glycol administration, Starting on 05/21/24 at 0548, Administer if tolerating PO. Do not crush, chew, cut, dissolve, open or otherwise manipulate tablet/capsule., Indications: constipation Or bisacodyL (DULCOLAX) suppository 10 mgJump to med 10 mg, rectal, Daily PRN, constipation, if no results 24 hours after polyethylene glycol administration, Starting on 05/21/24 at 0548, Administer if not tolerating PO., Indications: constipation documented in this encounter Orders Medications Ordered That Tyson ht Not Have Been Administered Count Last Ordered Date First Ordered Date ondansetron (ZOFRAN) injection 4 mg 1 05/23 acetaminophen (TYLENOL) tablet 650 mg 1 09/2023 albuterol HFA (PROVENTIL HFA ,VENTOLIN HFA,PROAIR HFA) 90 mcg/actuation inhaler 2 puff 1 05/21/2024 bisacodyL (DULCOLAX) suppository 10 mg 1 bisacodyl EC (DULCOLAX EC) tablet 10 mg 1 1 07/21/2023 polyethylene glycol (MIRALAX) packet 17 g 1 05/21/2024 prochlorperazine (COMPAZINE) injection 5 mg 1 05/21/2024 prochlorperazine (COMPAZINE) tablet 5 mg 1 05/21/2024 Diet Count Last Ordered Date First Orde red Date ADULT DISCHARGE DIET 1 05/29/2024 Nursing Count Last Ordered Date First Orde red Date DISCHARGE ACTIVITY 1 05/29/2024 FOLLOW UP WITH ESTABLISHED PROVIDER 1 05/29 Consult Count Last Ordered Date First Orde red Date AUTHORIZATION FOR POST-ACUTE CARE 1 024 IP CONSULT TO NEUROLOGY 1 05/21/2024 IP CONSULT TO NEUROSURGERY 1 05/21/2024 Admission Count Last Ordered Date First Orde red Date ADMIT TO INPATIENT 1 05/21/2024 Discharge Count Last Ordered Date First Orde red Date DISCHARGE PATIENT 1 05/29/2024 CORE MEASURES Count Last Ordered Date First Ord ered Date REASON FOR NO VTE PROPHYLAXI S - HOSPITAL ADMISSION - MEDICATIONS 1 05/21/2024 documented in this encounter 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
--- OUTSIDE RECORDS SUMMARY | 2024-08-07 02:23 | XMS_ITS | Encounter Summary ---
Author Organization [facility] Address [address] [place] [address] Phone Care Team Providers Care Client Care Consultant Name Role Phone Sohan Rojas MD Primary Care Provider [phone] Lamin Mcgraw MD Unavailable [phone] Manuel Chowdhury MD Unavailable Shahrzad SONI MD, Sea Juarez Unavailable [phone] Sebastien Herrera MD Unavailable [phone] Reason for Referral * Consultation (Routine) - Authorized Specialty Diagnoses / Procedures Referred By Contac t Referred To Contact Neurosurgery Diagnoses NPH (normal pressure hydrocephalus) ([facility]) Sebastien Herrera MD [address] [place] [address] Phone: tel: fax: Sebastien Herrera MD [address] [place] [address] Phone: tel: fax: Referral ID Status Reason Start Date Expiration Date Visits Requested Visits Authorized [id number] Authorized Specialty Services Required 05/19/2024 06/18/2025 3 3 Question Answer Please select the performing region: [facility] (All Locations) [[id number]] To provider: SEBASTIEN HERRERA [[id number]] # of visits: 3 Encounter Details Date Type Department Care Team (Late st Contact Info) Description 05/19/2024 Orders Only [facility] Neurosurgery [address], [address] [place] [address] Sebastien Herrera MD [address] [place] [address] NPH (normal pressure hydrocephalus) (HCC) (Primary Dx) Social History Tobacco Use Types Packs/Day Years Used Date Smoking Tobacco: Former Pipe Q uit: 11/28/1979 Smokeless Tobacco: Never Alcohol Use Standard Drinks/Week Comments Not Currently 0 (1 standard drink = 0.6 oz pur e alcohol) Humiliation, Afraid, Rape, and Kick questionnair e Answer Date Recorded Fear of Current or Ex-Partner No Emotionally Abused No 05/31/2019 Physically Abused No 05/31/2019 Sexually Abused No 05/31/2019 Social Connection and Isolat ion Panel [NHANES] Answer Date Recorded Frequency of Communication w ith Friends and Family More than three times a week 05/31/2019 Frequency of Social Gatherin gs with Friends and Family Twice a week 05/31/2019 Attends Evangelical Services Never 05/31 Active Member of Clubs or Organizations No 05/31/2019 Attends Club or Organization Meetings Never 05/31/2019 Marital Status 05/31/2019 AUDIT-C Answer Date Recorded Q1: How often do you have a drink containing alcohol? Never 01/31/2024 Q2: How many drinks containi ng alcohol do you have on a typical day when you are drinking? Patient does not drink 4 Q3: How often do you have si x or more drinks on one occasion? Never 01/31/2024 Overall Financial Resource Strain (CARDIA) Answe r Date Recorded Difficulty of Paying Living Expenses Not hard at all 05/31/2019 PHQ-2 Answer Date Recorded PHQ-2 Total Score (If total score is 3 or more points, staff should administer the PHQ-9) 0 01/26/2024 [facility] Occupat ional Health - Occupational Stress Questionnaire Answer Date Recorded Feeling of Stress To some extent 05/31/2019 Exercise Vital Sign Answer Date Recorde d Days of Exercise per Week 7 days 2018 Minutes of Exercise per Session 20 min 05/31/2019 Hunger Vital Sign Answer Date Recorded Worried About Running Out of Food in the Last Ye ar Never true 05/31/2019 Ran Out of Food in the Last Year Never true 05/31/2019 PRAPARE - Transportation Answer Date Re corded Lack of Transportation (Medical) No 05/31/2019 Lack of Transportation (Non-Medical) No 05/31/2019 Personal Safety Answer Date Recorded Have you ever been in or are you currently in a harmful physical or emotional relationship or is someone making you feel afraid or unsafe? Denies 05/15/2024 Education Answer Date Recorded What is the highest level of school you have completed or the highest degree you have received? 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 Gender Identity Male 03/24/2021 7:53 PM CDT Sexual Orientation Straight 03/24/2021 7: 53 PM CDT Occupation Industry Job Start Date Job End Date retired Not on file Not on file Not on file documented as of this encounter Plan of Treatment Scheduled Referrals Name Type Priority Associated Diagnoses Order Schedule Ambulatory referral to Neurosurgery Outpatient Referral Routine NPH (normal pressure hydrocephalus) (HCC) Expected: 06/02/2024 (Approximate), Expires: 05/19/2025 documented as of this encounter Visit Diagnoses Diagnosis NPH (normal pressure hydrocephalus) (HCC)- Primary Idiopathic normal pressure hydrocephalus (INPH) documented in this encounter Care Teams Client Care Consultant Relationship Specialty Start Date End Date Sohan Rojas MD [address] [address] PCP - General Family Medicine 07/10/22 Lamin Mcgraw MD [address] [place] [address] Consulting Physician Urology 07/27/22 Manuel Chowdhury MD [address] [place] [address] Consulting Physician Neurology 01/21/23 [place] [address] [facility] [address] [place] [address] Consulting Physician Neurology 01/21/23 Sebastien Herrera MD [address] [place] [address] Consulting Physician Neurosurgery 01/26/24 documented as of this encounter
--- OUTSIDE RECORDS SUMMARY | 2024-08-07 02:23 | XMS_ITS | Encounter Summary ---
Author Organization [facility] Address [address] [place] [address] Phone Care Team Providers Care Bell Staff Name Role Phone Sohan Rojas MD Primary Care Provider Lamin Mcgraw MD Unavailable [phone] Manuel Chowdhury MD Unavailable Shahrzad SONI MD, [place] Unavailable Anand Herrera MD Unavailable [phone] Encounter Details Date Type Department Care Team (Late st Contact Info) Description 01/31/2024 11:30 AM CDT Office Visit [facility] Neurosurgery [address] [facility] [address] 6th [place] [address] [place] [address] Anand Herrera MD [address] [place], [place] [id number] Memory difficulty (Primary Dx) Social History Tobacco Use Types [...] and Family Twice a week 05/31/2019 Attends Orthodox Services Never 05/31 Active Member of Clubs [...] staff should administer the PHQ-9) 0 01/26/2024 [facility] of Occupat ional Health [...] making you feel afraid or unsafe? Denies 03/12/2023 Education Answer Date Recorded What is the highest level of school you have completed or the highest degree you have received? 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 Gender Identity Male 03/24/2021 7:53 PM CDT Sexual Orientation Straight 03/24/2021 7: 53 PM CDT Occupation Industry Job Start Date Job End Date retired Not on file Not on file Not on file documented as of this encounter Last Filed Vital Signs Vital Sign Reading Time Taken Comments Blood Pressure 114/65 01/31/2024 11:18 AM CDT Pulse 59 01/31/2024 11:18 AM CDT Temperature - - Respiratory Rate - - Oxygen Saturation - - Inhaled Oxygen Concentration - - Weight 69.4 kg (153 lb) 01/31/2024 11:18 AM CDT Height 175.3 cm (5' 9 ) 01/31/2024 11:18 AM CDT Body Mass Index 22.59 01/31/2024 11:18 AM CDT documented in this encounter Progress Notes * Anand Herrera MD - 01/31/2024 11:30 AM CDT Patient Name: Gulshan Johnston Medical Record Number (MRN): [id number] Date of (): 1940 Encounter Date: 01/31/2024 PRIMARY CARE PROVIDER: Sohan Rojas MD REFERRING PROVIDER: Derrell Mcintosh NP [address] [facility] [address] [place] [address] CHIEF COMPLAINT Possible NPH HISTORY OF THE PRESENT ILLNESS We had the great pleasure of seeing Gulshan Johnston in our neurosurgery clinic for a consultation regarding possible NPH after being referred to us by Dr Mcintosh. Mr. Johnston is a 83 y.o. gentleman that presents today for further evaluation of memory and thinkingproblems. He is being treated with memantine. He also complains of mobility difficulty. Allergies Allergen Reactions Memantine Delusions Increased confusion Other Sneezing Seasonal allergies Current Outpatient Medications on File Prior to Visit Medication Sig Dispense Refill albuterol HFA (PROVENTIL HFA,VENTOLIN HFA,PROAIR HFA) 90 mcg/actuation inhaler Inhale 2 puffs every4 (four) hours as needed for wheezing 1 each 3 atorvastatin (LIPITOR) 20 mg tablet Take 1 tablet (20 mg total) by mouth daily 90 tablet 1 Breo Ellipta 100-25 mcg/dose diskus inhaler INHALE 1 PUFF BY MOUTH EVERY DAY 180 each 0 cholecalciferol, vitamin D3, 1,000 unit tablet,chewable cranberry extract 200 mg capsule Take 2 capsules by mouth 3 (three) times a day diclofenac DR (VOLTAREN) 75 mg EC tablet TAKE 1 TABLET BY MOUTH TWICE A DAY 180 tablet 3 donepeziL (ARICEPT) 10 mg tablet Take 1 tablet (10 mg total) by mouth nightly 90 tablet 3 escitalopram (Lexapro) 10 mg tablet Take 1 tablet (10 mg total) by mouth daily 30 tablet 11 finasteride (PROSCAR) 5 mg tablet Take 1 tablet (5 mg total) by mouth daily 90 tablet 1 fluticasone propionate (FLONASE) 50 mcg/actuation nasal spray Administer 2 sprays into each nostrildaily 3 each 4 ibuprofen (ADVIL,MOTRIN) 800 mg tablet Take 1 tablet (800 mg total) by mouth every 6 (six) hours omega 8-llb-car-fish oil 360-1,200 mg capsule,delayed release(DR/EC) Take 1 capsule by mouth daily omeprazole (PriLOSEC) 20 mg capsule TAKE 1 CAPSULE BY MOUTH EVERY DAY 90 capsule 1 Sodium Fluoride 5000 Dry Mouth 1.1 % paste tamsulosin (FLOMAX) 0.4 mg extended release capsule Take 1 capsule (0.4 mg total) by mouth daily 90capsule 1 traMADoL (ULTRAM) 50 mg tablet TAKE 1 TABLET BY MOUTH EVERY 6 HOURS NEEDED FOR PAIN X 5 DAYS triamcinolone (KENALOG) 0.1 % cream PLEASE SEE ATTACHED FOR DETAILED DIRECTIONS vitamin b complex (Vitamins B Complex) tablet Take 1 tablet by mouth daily vitamin E (AQUASOL E) 1,000 unit capsule Take 5 capsules (5,000 Units total) by mouth daily No current facility-administered medications on file prior to visit. Patient Active Problem List Diagnosis Hypercholesterolemia Osteoarthritis Rosacea Bronchial asthma Gastroesophageal reflux disease Diffuse cervicobrachial syndrome Lumbago Degenerative lumbar spinal stenosis Chronic pain Cervical radiculopathy Anemia Insomnia, unspecified Intrinsic eczema Prostate cancer (HCC) Pure hypercholesterolemia Lumbar back pain Primary osteoarthritis of left shoulder Dyspnea, unspecified Acute sinusitis Callus of toe Onychomycosis of toenail Pain in toe Paronychia of toe of right foot Sleep disorder Asthma Arthritis 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[facility]) Encounter for Medicare annual wellness exam Spinal stenosis of lumbar region with neurogenic claudication Radiculopathy, lumbosacral region Balance problem 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 behavioral disturbance, psychotic disturbance, mood disturbance, or anxiety ([facility]) Abnormality of gait and mobility Dystrophia unguium Seborrheic dermatitis Past Medical History: Diagnosis Date Anxiety Arthritis Asthma Cancer (CMS/HCC) ([facility]) 2018? GERD (gastroesophageal reflux disease) [...] Diskectomy Lumbar - (Added by TW Conv) LA TONSILLECTOMY PRIMARY/SECONDARY <AGE 12 Tonsillectomy - (Added by TW Conv) PROSTATE CANCER GENE 3 (PCA3) SPINE SURGERY Family History Problem Relation Age of Onset [...] disease Paternal Grandmother Memory loss Paternal Grandmother Social History Tobacco Use Smoking status: Former Types: Pipe Quit date: 11/28/1979 Years since quittin.1 Smokeless tobacco: Never Substance and Sexual Activity Drug use: Never Sexual activity: Not Currently control/protection: None Alcohol Use: Not At Risk (07/26/2023) AUDIT-C Frequency of Alcohol Consumption: Never Average Number of Drinks: Patient does not drink Frequency of Binge Drinking: Never VITAL SIGNS There were no vitals filed for this visit. REVIEW OF SYSTEMS Constitutional: negative for anorexia, appetite change, chills, fatigue, fevers, malaise, night sweats, sleep disturbance, weight gain and weight loss Eyes: negative for double vision, visual disturbance and visual loss Ears, nose, mouth, throat, and face: negative for ear drainage, hearing loss, loss of smell or taste, nasal congestion, tinnitus and vertigo Cardiovascular: negative for chest pain, irregular heart beat, palpitations and syncope Genitourinary: negative for change in bladder habits. Hematologic/lymphatic: negative for anemia, bleeding and easy bruising Neurological: negative for confusion, coordination problems, dizziness, gait problems, headaches, memory problems, paresthesia, seizures, stroke or TIA, syncope, tremors, vertigo and weakness Musculoskeletal: negative for back pain, muscle weakness, neck pain and radiating pain Endocrine: negative for cold intolerance, excessive or decreased sweating, fertility problems, heatintolerance, polydipsia, polyphagia, temperature intolerance, thyroid disease and weight loss PHYSICAL EXAM: Mental Status: The patient was alert and oriented to person, place and time. There was no memory deficit. There was normal language pattern, attention span and general fund of knowledge. Repetition intact, naming three out of three. Gait and Station: Gait and station steady. There was no limp or ataxia. Tandem gait was normal. Cranial Nerves: II: Visual chapa were normal. Visual acuity was normal. III, IV and : The pupils were equal and reactive to light and accomodation. Extraocular movementswere intact. There was no ptosis or nystagmus. There was normal convergence. There was no evidence of Crispin's syndrome. V:Facial sensation was normal. VII:Facial strength was normal. There was no ptosis. VIII: Hearing was intact bilaterally. IX,X: The palate elevated in the midline. There was no hoarseness, and volume was normal. XI: There was no atrophy/weakness of the sternocleidomastoid or trapezius. Shoulder elevation was symmetric. XII: The tongue protruded in the midline. There was no atrophy or fasciculation. Cerebellar: There was no nystagmus, dysmetria or dyskinesia. Voice saurav was normal. Motor: There was no upper or lower extremity weakness, atrophy or fasciculations. There was normal tone. Deep Tendon Reflexes: The reflexes were bilaterally symmetric throughout. Babinski and Gill's signs were negative. The was no ankle clonus. Sensation: Light touch and pinprick sensation was normal OBJECTIVE: REVIEW OF IMAGING: I have reviewed the MRI brain from 12/24/2022 and agree IMPRESSION: 1. No acute intracranial abnormality. 2. Findings consistent with sequela of mild chronic ischemic microangiopathy and [id number] global parenchymal atrophy. REVIEW OF LABORATORIES: None ASSESSMENT AND PLAN: 83 years old female with history of cognitive and mobility decline. His MRI shows no features of NPH but instead indicated vascular dementia. I explained to them that at this point I do not think even a lumbar drain trial would be indicated here as he has no radiographic evidence of NPH. The drain can have side effects, subdural hemorrhage, spinal hematoma, low pressure headaches. They understandthe above and they will think about it and will let us know how they would like to proceed. Thank you for allowing me to participate in the care of your patient. If you have any questions about this patient, feel free to contact me. Sincerely, Anand Herrera MD documented in this encounter Plan of Treatment Not on file documented as of this encounter Visit Diagnoses Diagnosis Memory difficulty- Primary Memory loss documented in this encounter Care Teams Bell Staff Relationship Specialty Start Date End Date Sohan Rojas MD 2 [facility] [address] [place] [address] PCP - General Family Medicine 07/10/22 Lamin Mcgraw MD [address] [place] [address] Consulting Physician Urology 07/27/22 Manuel Chowdhury MD [address] [place] [address] Consulting Physician Neurology 01/21/23 [place] [address] [facility] [address] [place] [address] Consulting Physician Neurology 01/21/23 Anand Herrera MD [address] [place], [place] [address] Consulting Physician Neurosurgery 01/26/24 documented as of this encounter
--- OUTSIDE RECORDS SUMMARY | 2024-08-07 02:23 | XMS_ITS | Encounter Summary ---
Author Organization [facility] Address [address] [place] [address] Phone Care Team Providers Care Network Support Manager Name Role Phone Sohan Rojas MD Primary Care Provider Lamin Mcgraw MD Unavailable [phone] Manuel Chowdhury MD Unavailable Shahrzad SONI MD, Sea Juarez Unavailable Anand Herrera MD Unavailable Encounter Details Date Type Department Care Team (Late st Contact Info) Description 03/31/2024 Orders Only [facility] Neurosurgery [address] [facility] Advanced Medicine 6th [place] [address] [place] [address] Anand Herrera MD [address] [place] [address] NPH (normal pressure hydrocephalus) (HCC) (Primary Dx); Other cerebrovascular disease; Other hereditary cerebrovascular disease Social History Tobacco Use Types Packs/Day Years [...] and Family Twice a week 05/31/2019 Attends Voodoo Services Never 05/31 Active Member of Clubs [...] staff should administer the PHQ-9) 0 01/26/2024 [facility] of Occupat ional Health - Occupational Stress [...] No 05/31/2019 Personal Safety Answer Date Recorded Getting School Help Needed Not on file 03/19 Education Answer Date Recorded What is the highest level of school you have completed or the highest degree you have received? 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 Gender Identity Male 03/24/2021 7:53 PM CDT Sexual Orientation Straight 03/24/2021 7: 53 PM CDT Occupation Industry Job Start Date Job End Date retired Not on file Not on file Not on file documented as of this encounter Plan of Treatment Not on file documented as of this encounter Results * (ABNORMAL) aPTT (05/15/2024 8:31 AM CDT) [...] BLOOD ORDERABLES Final Result Performing Organization Address [facility] de Phone Number [facility] [place] [address] * Protime-INR (05/15/2024 8:31 AM CDT) PT 12.3 9.7 - 13.0 sec INR 1.14 0.90 - 1.20 [facility] Comment: Interpretive data Oral anticoagulant therapeutic ranges: Venous thromboembolism prophylaxis or treatment: 2.0-3.0 CARDIOLOGY Standard range: 2.0-3.0 High-intensity range: 2.5-3.5 Refer to indication-specific guidelines for appropriate target ranges for prosthetic heart valve replacement. Current interpretive data was last revised on 2019. Blood 05/15/2024 8:31 AM CDT 05/15/2024 9:14 AM CDT us Anand Herrera MD LAB BLOOD ORDERABLES Final Result Performing Organization Address City/[facility]/ZIP Co de Phone Number [facility] [place] [address] * (ABNORMAL) CBC with auto differential (05/15/2024 8:31 AM CDT) WBC 6.2 3.8 - 9.9 K/cumm Hgb 11.1(L) 13.0 - 17.5 g/dL [facility] Hct 33.0(L) 38.9 - 50.3 % [facility] Plt 195 150 - 400 K/cumm [facility] MPV 9.8 9.1 - 12.3 fL [facility] RBC 3.44(L) 4.30 - 5.80 M/cumm [facility] MCV 95.9 81.3 - 96.4 fL [facility] MCH 32.3 27.1 - 33.3 pg [facility] MCHC 33.6 32.3 - 35.7 g/dL [facility] RDW CV 12.7 11.1 - 14.9 % [facility] RDW SD 44.4 35.7 - 48.1 fL [facility] NRBC abs 0.00 0.00 - 0.01 K/cumm [facility] Blood 05/15/2024 8:31 AM CDT 05/15/2024 9:14 AM CDT Anand Herrera MD LAB BLOOD ORDERABLES Final Result Performing Organization Address City/State/[facility] Co de Phone Number [facility] [place] [address] documented in this encounter Visit Diagnoses Diagnosis NPH (normal pressure hydrocephalus) (HCC)- Primary 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 disease Other hereditary cerebrovascular disease documented in this encounter Care Teams Network Support Manager Relationship Specialty Start Date End Date Sohan Rojas MD [address] [facility] [address] [place] [address] PCP - General Family Medicine 07/10/22 Lamin Mcgraw MD [address] [place] [address] Consulting Physician Urology 07/27/22 Manuel Chowdhury MD [address] [place] [address] Consulting Physician Neurology 01/21/23 [place] [address] [facility] [address] [place] [address] Consulting Physician Neurology 01/21/23 Anand Herrera MD [address] [place], [place] [address] Consulting Physician Neurosurgery 01/26/24 documented as of this encounter
--- OUTSIDE RECORDS SUMMARY | 2024-08-07 02:23 | XMS_ITS | Encounter Summary ---
Author Organization [facility] Healthcare Address [address] [place] [address] Care Team Providers Care Micro Photographer Name Role Phone Sohan Rojas MD Primary Care Provider Lamin Mcgraw MD Unavailable [phone] Manuel Chowdhury MD Unavailable Shahrzad SONI MD, Carlos M. Unavailable Anand Herrera MD Unavailable Reason for Visit * Auth/Cert (Routine) Specialty Diagnoses / Procedures Referred By Daxa t Referred To Contact Diagnoses NPH (normal pressure hydrocephalus) (HCC) Procedures lumbar drain trail Referral ID Status Reason Start Date Expiration Date Visits Re quested Visits Authorized [id number] 1 1 Encounter Details Date Type Department Care Team (Late st Contact Info) Description 05/15/2024 8:30 AM CDT Lab [facility] [address] [facility] 1st [place] [address] NPH (normal pressure hydrocephalus) (HCC); Other cerebrovascular [...] and Family Twice a week 05/31/2019 Attends Je[employer]'S Witness Services Never 05/31 Active Member of Clubs [...] staff should administer the PHQ-9) 0 01/26/2024 [facility] of Occupat ional Health - Occupational Stress [...] on file 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 Gender Identity Male 03/24/2021 7:53 PM CDT Sexual Orientation Straight 03/24/2021 7: 53 PM CDT Occupation Industry Job Start Date Job End Date retired Not on file Not on file Not on file documented as of this encounter Plan of Treatment Not on file documented as of this encounter Procedures Procedure Name Priority Date/Time Associated Diagnosis Comments DIFFERENTIAL AUTO Routine 05/15/2024 8:3 1 AM CDT NPH (normal pressure hydrocephalus) (HCC) CBC WITH AUTO DIFFERENTIAL Routine 05/15/2024 8:31 AM CDT NPH (normal pressure hydrocephalus) (HCC) APTT Routine 05/15/2024 8:31 AM CDT NPH (normal pressure hydrocephalus) (HCC) Other hereditary cerebrovascular disease PROTIME-INR Routine 05/15/2024 8:31 AM CDT NPH (normal pressure hydrocephalus) (HCC) Other cerebrovascular disease documented in this encounter Results * Differential, auto (05/15/2024 8:31 AM CDT) Neutrophil abs 4.6 1.5 - 6.5 K/cumm Imm gran abs 0.0 0.0 - 0.1 K/cumm [facility] Lymphocyte abs 0.8 0.8 - 3.3 K/cumm [facility] Monocyte abs 0.5 0.2 - 0.8 K/cumm [facility] Eosinophil abs 0.3 0.0 - 0.5 K/cumm [facility] Basophil abs 0.1 0.0 - 0.1 K/cumm [facility] Neutrophil pct 73.6 % [facility] Comment: Interpretive Data Percent cell count reference ranges are not reported, since discordance with absolute values may lead to misinterpretation of CBC data. Current Interpretive Data was last revised on 2017. Imm gran pct 0.3 % [facility] Comment: Interpretive Data Percent cell count reference ranges are not reported, since discordance with absolute values may lead to misinterpretation of CBC data. Current Interpretive Data was last revised on 2017. Lymphocyte pct 12.7 % [facility] Comment: Interpretive Data Percent cell count reference ranges are not reported, since discordance with absolute values may lead to misinterpretation of CBC data. Current Interpretive Data was last revised on 2017. Monocyte pct 7.6 % [facility] Comment: Interpretive Data Percent cell count reference ranges are not reported, since discordance with absolute values may lead to misinterpretation of CBC data. Current Interpretive Data was last revised on 2017. Eosinophil pct 4.7 % [facility] Comment: Interpretive Data Percent cell count reference ranges are not reported, since discordance with absolute values may lead to misinterpretation of CBC data. Current Interpretive Data was last revised on 2017. Basophil pct 1.1 % [facility] Comment: Interpretive Data Percent cell count reference ranges are not reported, since discordance with absolute values may lead to misinterpretation of CBC data. Current Interpretive Data was last revised on 2017. Blood 05/15/2024 8:31 AM CDT 05/15/2024 9:14 AM CDT us Anand Herrera MD LAB BLOOD ORDERABLES Final Result [facility] Department [place] [address] * (ABNORMAL) CBC with auto differential (05/15/2024 8:31 AM CDT) WBC 6.2 3.8 - 9.9 K/cumm Hgb 11.1(L) 13.0 - 17.5 g/dL [facility] Hct 33.0(L) 38.9 - 50.3 % [facility] Plt 195 150 - 400 K/cumm [facility] MPV 9.8 9.1 - 12.3 fL [facility] RBC 3.44(L) 4.30 - 5.80 M/cumm [facility] MCV 95.9 81.3 - 96.4 fL [facility] MCH 32.3 27.1 - 33.3 pg [facility] MCHC 33.6 32.3 - 35.7 g/dL [facility] RDW CV 12.7 11.1 - 14.9 % [facility] RDW SD 44.4 35.7 - 48.1 fL [facility] NRBC abs 0.00 0.00 - 0.01 K/cumm [facility] Blood 05/15/2024 8:31 AM CDT 05/15/2024 9:14 AM CDT Anand Herrera MD LAB BLOOD ORDERABLES Final Result Performing Organization Address [facility] de Phone Number [facility] [place] [address] * (ABNORMAL) aPTT (05/15/2024 8:31 AM CDT) [...] BLOOD ORDERABLES Final Result Performing Organization Address [facility] de Phone Number [facility] [place] [address] * Protime-INR (05/15/2024 8:31 AM CDT) PT 12.3 9.7 - 13.0 sec INR 1.14 0.90 - 1.20 [facility] Comment: Interpretive data Oral anticoagulant therapeutic ranges: Venous thromboembolism prophylaxis or treatment: 2.0-3.0 CARDIOLOGY Standard range: 2.0-3.0 High-intensity range: 2.5-3.5 Refer to indication-specific guidelines for appropriate target ranges for prosthetic heart valve replacement. Current interpretive data was last revised on 2019. Blood 05/15/2024 8:31 AM CDT 05/15/2024 9:14 AM CDT Anand Herrera MD LAB BLOOD ORDERABLES Final Result [facility] Department [place] [address] documented in this encounter Visit Diagnoses Diagnosis NPH (normal pressure hydrocephalus) (HCC) 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 disease Other hereditary cerebrovascular disease documented in this encounter Care Teams Micro Photographer Relationship Specialty Start Date End Date Sohan Rojas MD [address] [place] [address] PCP - General Family Medicine 07/10/22 Lamin Mcgraw MD [address] [facility] [address] Consulting Physician Urology 07/27/22 Manuel Chowdhury MD [address] [place] [address] Consulting Physician Neurology 01/21/23 [place] [address] [facility] [address] [place] [address] Consulting Physician Neurology 01/21/23 Anand Herrera MD [address] [place] [address] Consulting Physician Neurosurgery 01/26/24 documented as of this encounter
--- OUTSIDE RECORDS SUMMARY | 2024-08-07 02:23 | XMS_ITS | Encounter Summary ---
Author Organization [facility] Healthcare Address [address] [place] [address] Care Team Providers Care Glass Driller Name Role Phone Sohan Rojas MD Primary Care Provider Lamin Mcgraw MD Unavailable [phone] Manuel Chowdhury MD Unavailable Shahrzad SONI MD, Carlos M. Unavailable Anand Herrera MD Unavailable Encounter Details Date Type Department Care Team (Late st Contact Info) Description 06/01/2024 NH/SNF Visit [facility] Medical Group Post Acute Care [address] [address] Alison Benavides, OIL SPECULATOR [address] [place] [id number] OAB (overactive bladder) (Primary Dx); Insomnia due to medical condition; 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 behavioral disturbance, psychotic disturbance, mood disturbance, or anxiety (HCC); Abnormality of gait and mobility; Anemia, unspecified type; Onychomycosis of toenail Social History Tobacco Use Types Packs/Day Years Used Date Smoking Tobacco: Former Pipe Q uit: 11/28/1979 Smokeless Tobacco: Never Alcohol Use Standard Drinks/Week Comments Not Currently 0 (1 standard drink = 0.6 oz pur e alcohol) [facility] Utilities Answer Date Recorded In the past [...] any clubs o r organizations such as denominational groups, unions, fraternal or athletic groups, or [...] staff should administer the PHQ-9) 0 01/26/2024 [facility] of Occupat ional Health - Occupational [...] any time in the past 12 m [facility], were you homeless or living in [...] on file 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 Gender Identity Male 03/24/2021 7:53 PM CDT Sexual Orientation Straight 03/24/2021 7: 53 PM CDT Occupation Industry Job Start Date Job End Date retired Not on file Not on file Not on file documented as of this encounter Last Filed Vital Signs Vital Sign Reading Time Taken Comments Blood Pressure 118/56 06/02/2024 9:15 AM MENTAL HEALTH AIDE Pulse - - Temperature - - Respiratory Rate - - Oxygen Saturation - - Inhaled Oxygen Concentration - - Weight - - Height - - Body Mass Index - - documented in this encounter Progress Notes * Alison Benavides NP - 06/01/2024 5:44 PM CST Images from the original note were not included. Daily Progress Note A/P: Diagnoses and all orders for this visit: OAB (overactive bladder) (Primary) Assessment & Plan: Increased urination at night. UA negative for UTI. Condom cath added at nighttime with BPH meds dosed accordingly. Monitor for improvement or need to add Mybertiq. Insomnia due to medical condition Assessment & Plan: Believe s/t OAB/Dementia. Will trial Trazodone 50mg nightly given at 2000 nightly, condom cath, Flomax dosed at 1700 & Finasteride in am. If continues to have issues could consider Mybertiq. 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 Per Neurology Ddx would be Parkinson's disease, Lewy body dementia, or Alzheimer's disease with extrapyramidal features. NPH willis negative. Continue Aricept, Lexapro, Trazodone. Encourage sleep hygiene. PT/OT/ST. Abnormality of gait and mobility Anemia, unspecified type Assessment & Plan: Labs pending for am. Onychomycosis of toenail Assessment & Plan: Medication completed 05/29. Chief complaint of Insomnia/OAB. Interval History: 84-year-old male with history of anxiety, asthma, GERD, dyslipidemia, obstructivesleep apnea. He is a direct admit from [facility] for chief complaint of unspecified alteredmental status. Briefly patient was admitted at [facility] on 05/15/2024 w/ chief complaint to rule [...] dementia. Believes Ddx would be Parkinson's disease, Lewybody dementia, or Alzheimer's disease with extrapyramidal features. Recommends to continue Aricept,unable to tolerate Namenda in past so does not recommend starting. Trazodone was added to help withsleep hygiene. Discussed considering trial of low Sinemet outpt if sx continue also. For now rehab r ecommended for strengthening. He was transferred to [facility]. Of note: --Was referred for sleep study but not performed. --Daughter notes prior to [facility] admission for lumbar drain and NPH eval, patient was living alone. He does have a history of underlying dementia but is independent at home. She livesnearby and is able to help out with meals, groceries and checking in on him closely. Son & Dtr are considering [place] /LTC after tx completion at [facility]. --Required sitter inpt, dc 05/27 per notes. Patient requiring sitter at [facility]. Family assisting & sitting with patient. 06/02: [...] working with family on dcp with placement. DVT prop: None, Fall risk Recent Labs: Recent Results (from the past week) Urinalysis [...] for microscopic UA and culture not met. Medications reviewed today. Vital Signs: Vitals BP 118/56 Review of Systems: SEE HPI Physical Exam: Physical Exam Vitals and nursing note reviewed. [...] edema. Left lower leg: No edema. Neurological: Mental Status: He is alert. Psychiatric: Mood and Affect: Mood normal. Cognition and Memory: Cognition is impaired. Memory is impaired. Electronically signed by Alison Benavides NP 06/02/2024 9:38 AM Voice recognition software InGauge[employer] Direct was used dictate and transcribe this document. Brazer Assembler variances may occur. Despite proofreading, typographical errors may occur. Cosigned by Sudheer Mcdonough MD at 06/02/2024 7:56 PM MENTAL HEALTH AIDE AL HEALTH AIDE AL HEALTH AIDE documented in this encounter Miscellaneous Notes * Assessment & Plan Note - Alison Benavides NP - 06/02/2024 9:38 AM MENTAL HEALTH AIDE Associated Problem(s): OAB (overactive bladder) Increased urination at night. UA negative for UTI. Condom cath added at nighttime with BPH meds dosed accordingly. Monitor for improvement or need to add Mybertiq. AL HEALTH AIDE * Assessment & Plan Note - Alison Benavides NP - 06/02/2024 9:37 AM MENTAL HEALTH AIDE Associated Problem(s): Anemia Labs pending for am. AL HEALTH AIDE * Assessment & Plan Note - Alison Benavides NP - 06/02/2024 9:36 AM MENTAL HEALTH AIDE Associated Problem(s): 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 behavioral disturbance, psychotic disturbance, mood disturbance, or anxiety (HCC) Uncertain type of Dementia. Per Neurology Ddx would be Parkinson's disease, Lewy body dementia, or Alzheimer's disease with extrapyramidal features. NPH willis negative. Continue Aricept, Lexapro, Trazodone. Encourage sleep hygiene. PT/OT/ST. AL HEALTH AIDE * Assessment & Plan Note - Alison Benavides NP - 06/02/2024 9:35 AM MENTAL HEALTH AIDE Associated Problem(s): Insomnia, unspecified Believe s/t OAB/Dementia. Will trial Trazodone 50mg nightly given at 2000 nightly, condom cath, Flomax dosed at 1700 & Finasteride in am. If continues to have issues could consider Mybertiq. AL HEALTH AIDE * Assessment & Plan Note - Alison Benavides NP - 06/02/2024 9:34 AM MENTAL HEALTH AIDE Associated Problem(s): Onychomycosis of toenail (Resolved 06/02/2024) Medication completed 05/29. AL HEALTH AIDE documented in this encounter Plan of Treatment Not on file documented as of this encounter Visit Diagnoses Diagnosis OAB (overactive bladder)- Primary Insomnia due to medical condition Organic insomnia, unspecified 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 behavioral disturbance, psychotic disturbance, mood disturbance, or anxiety (HCC) Abnormality of gait and mobility Anemia, unspecified type Onychomycosis of toenail documented in this encounter Discontinued Medications Medication Sig Discontinue Reason Start Date End Da te diclofenac DR (VOLTAREN) 75 mg EC tabletIndications:Deg enerative lumbar spinal stenosis Take 1 tablet (75 mg total) by mouth 2 (two) times a day HOLD THIS MEDICATION UNTIL YOU FOLLOW UP WITH NEUROSURGERY 05/19/2024 06/02/2024 ibuprofen (ADVIL,MOTRIN) 800 mg tablet Take 1 tablet (800 mg total) by mouth every 6 (six) hours HOLD THIS MEDICATION UNTIL YOU FOLLOW UP WITH NEUROSURGERY 05/19/2024 06/02/2024 terbinafine (LamiSIL) 250 mg tablet Take 1 tablet (250 mg total) by mouth daily 05/01/2024 06/02/2024 documented as of this encounter Care Teams Glass Driller Relationship Specialty Start Date End Date Sohan Rojas MD [address] [facility] [address] [place] [address] PCP - General Family Medicine 07/10/22 Lamin Mcgraw MD [address] [place] [address] Consulting Physician Urology 07/27/22 Manuel Chowdhury MD [address] [place] [address] Consulting Physician Neurology 01/21/23 [place] [address] [facility] [address] [place] [address] Consulting Physician Neurology 01/21/23 Anand Herrera MD [address] [place] [address] Consulting Physician Neurosurgery 01/26/24 documented as of this encounter
--- OUTSIDE RECORDS SUMMARY | 2024-08-07 02:23 | XMS_ITS | Encounter Summary ---
Author Organization [facility] Healthcare Address [address] [place] [address] Care Team Providers Care Rubber Goods Cutter Finisher Name Role Phone Sohan Rojas MD Primary Care Provider Lamin Mcgraw MD Unavailable [phone] Manuel Chowdhury MD Unavailable Shahrzad SONI MD, Carlos M. Unavailable Anand Herrera MD Unavailable [phone] Reason for Visit * Reason Onset Date Comments Medical Question/Miscellaneous 02/28/2024 Encounter Details Date Type Department Care Team (Late st Contact Info) Description 02/28/2024 Telephone [facility] Medical [facility] Primary Care at [address] [address] Sohan Rojas MD [address] [place] [address] [address] [place] [address] Medical Question/Miscellaneous Social History Tobacco [...] and Family Twice a week 05/31/2019 Attends [employer] Services Never 05/31 Active Member of Clubs [...] staff should administer the PHQ-9) 0 01/26/2024 [facility] of Occupat ional Health - Occupational [...] on file 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 Does message need to be routed? No documented in this encounter Plan of Treatment Not on file documented as of this encounter Visit Diagnoses Not on filedocumented in this encounter Care Teams Rubber Goods Cutter Finisher Relationship Specialty Start Date End Date Sohan Rojas MD [address] [facility] [address] [place] [address] PCP - General Family Medicine 07/10/22 Lamin Mcgraw MD [address] [place] [address] Consulting Physician Urology 07/27/22 Manuel Chowdhury MD [address] [place] [address] Consulting Physician Neurology 01/21/23 [place] [address] [facility] [address] [place] [address] Consulting Physician Neurology 01/21/23 Anand Herrera MD [address] [place] [address] Consulting Physician Neurosurgery 01/26/24 documented as of this encounter
--- OUTSIDE RECORDS SUMMARY | 2024-08-07 02:23 | XMS_ITS | Encounter Summary ---
Author Organization [facility] Healthcare Address [address] [place] [address] Care Team Providers Care Warp Spooler Name Role Phone Sohan Rojas MD Primary Care Provider Lamin Mcgraw MD Unavailable [phone] Manuel Chowdhury MD Unavailable Shahrzad SONI MD, Carlos M. Unavailable Anand Herrera MD Unavailable Reason for Visit * Auth/Cert (Routine) Specialty Diagnoses / Procedures Referred By Contac t Referred To Contact Diagnoses NPH (normal pressure hydrocephalus) (HCC) Procedures lumbar drain trail Referral ID Status Reason Start Date Expiration Date Visits Re quested Visits Authorized [id number] 1 1 Encounter Details Date Type Department Care Team (Latest Contact Info) Description 05/15/2024 9:39 AM CDT - 05/19/2024 4:15 PM CDT Hospital Encounter [facility] [address] [place] [address] Anand Herrera MD [address] [facility] [address] [place] [address] Degenerative lumbar spinal stenosis Discharge Disposition: Discharge to SNF Social History [...] and Family Twice a week 05/31/2019 Attends Worship Services Never 05/31 Active Member of Clubs [...] staff should administer the PHQ-9) 0 01/26/2024 [facility] - Occupational Stress [...] on file 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 Gender Identity Male 03/24/2021 7:53 PM CDT Sexual Orientation Straight 03/24/2021 7: 53 PM CDT Occupation Industry Job Start Date Job End Date retired Not on file Not on file Not on file documented as of this encounter Last Filed Vital Signs Vital Sign Reading Time Taken Comments Blood Pressure 170/78 05/19/2024 7:30 AM CDT Pulse 78 05/19/2024 7:30 AM CDT Temperature 37.4 ??C (99.3 ??F) 05/19/2024 7:30 AM CD T Respiratory Rate 16 05/19/2024 7:30 AM CDT Oxygen Saturation 99% 05/19/2024 7:30 AM CDT Inhaled Oxygen Concentration - - Weight 70.5 kg (155 lb 8 oz) 05/15/2024 10:30 AM CDT Height 177.8 cm (5' 10 ) 05/15/2024 10:30 AM CDT Body Mass Index 22.31 05/15/2024 10:30 AM CDT documented in this encounter Discharge Summaries * Merline Rapp NP - 05/19/2024 1:55 PM CDT Inpatient Discharge Summary BRIEF OVERVIEW Admitting Provider: Anand Herrera MD Discharge Provider: Anand Herrera MD Primary Care Physician at Discharge: Sohan Rojas MD [phone] Admission Date: 05/15/2024 Discharge Date: 05/19/2024 Admission Location: [facility] Problems/Diagnoses: Principal Problem: NPH (normal pressure hydrocephalus) (HCC) Resolved Problems: No resolved hospital problems. DETAILS OF HOSPITAL STAY Presenting Problem/History of Present Illness: Gulshan Johnston is a 84 y.o. male not on antiplatelets or anticoagulation with a history of anxiety, asthma, GERD, HLD, HSON who presents with approximately 2 years of memory and thinking problems. These are primarily cognitive in nature.He is being treated with memantine. He also complains of mobility difficulty, The he says this is not significant. Per daughter at bedside, he has been having progressively worsening shuffling gait. He denies any urgency incontinence. Hospital Course: 05/15 Admitted for NPH LD trial. Med rec complete. Pre ROMEO 40. LD placed in TANNA. Hydral x1 for BP. 05/16 ROMEO 10. Alzheimers CSF lab neg. 05/17 ROMEO 10. 05/18 ROMEO 5. LD removed. Problems addressed during this hospitalization: Memory problems/mobility issues --LD trial --Pre ROMEO 40 --LD placed in TANNA 05/16 --Post ROMEO 10 --> 10 --> 5 2. HLD --continue Lipitor 3. Depression/anxiety --Continue Lexapro 4. BPH --continue Proscar and Flomax Procedures: 05/15 LD placed Consults: none GI/ Concerns: Tolerating regular diet. Last bowel movement was on 05/17. Gilmore placed 05/16. Void trial in 3-5 days Therapy recommendations: retirement facility Incision: LD site c/d/i Brace: N/A Surgical drains: Lumbar drain removed 05/18 Notable medications: Pain medications: Tylenol as needed Steroids: none Antibiotics: none Anticoagulation/antiplatelet agents: none Anti-epileptic drugs: none Follow-up: Neurosurgery: Tasked for 2 weeks . Other services: None Lab tests/imaging necessary on follow-up: no additional scans/tests necessary Active Issues Requiring Follow-up: FU about LD trail -- void check in 3-5 days Test Results Pending at Discharge: Operative Procedures Performed: Other Procedures: none Pertinent Test Results: XR chest 1 view (Portable) Result Date: 05/15/2024 EXAMINATION: 1 view chest radiograph Lungs are well-expanded and clear. Heart size is normal. Atherosclerotic changes of the aorta. Electronically signed by: Geoff Stevens M.D. Discharge Details Physical Exam at Discharge: Discharge Condition: stable Pulse: 78 Resp: 16 BP: 170/78 Temp: 37.4 ??C (99.3 ??F) Weight: 70.5 kg (155 lb 8 oz) Pertinent Exam Findings at Discharge: full Discharge Disposition: Discharge to SNFNF Code Status at Discharge: Full code Discharge Instructions: SEE AVS Discharge Medications: Current Medications TAKE these medications acetaminophen 325 mg tablet Take 2 tablets (650 mg total) by mouth every 4 (four) hours as needed for pain For: pain Commonly known as: TYLENOL albuterol HFA 90 mcg/actuation inhaler Inhale 2 puffs every 4 (four) hours as needed for wheezing For: bronchospasm prevention Commonly known as: PROVENTIL HFA,VENTOLIN HFA,PROAIR HFA atorvastatin 20 mg tablet TAKE 1 TABLET BY MOUTH EVERY DAY Commonly known as: LIPITOR Breo Ellipta 100-25 mcg/dose diskus inhaler INHALE 1 PUFF BY MOUTH EVERY DAY Generic drug: fluticasone furoate-vilanteroL cholecalciferol (vitamin D3) 1,000 unit tablet,chewable cranberry extract 200 mg capsule Take 2 capsules by mouth 3 (three) times a day diclofenac DR 75 mg EC tablet Take 1 tablet (75 mg total) by mouth 2 (two) times a day HOLD THIS MEDICATION UNTIL YOU FOLLOW UP WITH NEUROSURGERY Commonly known as: VOLTAREN docusate sodium 100 mg capsule Take 1 capsule (100 mg total) by mouth 2 (two) times a day For: constipation, Stool Softener Commonly known as: COLACE donepeziL 10 mg tablet Take 1 tablet (10 mg total) by mouth nightly For: mild to moderate Alzheimer's type dementia Commonly known as: ARICEPT escitalopram 10 mg tablet Take 1 tablet (10 mg total) by mouth daily Commonly known as: Lexapro finasteride 5 mg tablet Take 1 tablet (5 mg total) by mouth daily Commonly known as: PROSCAR Start taking on: May 20, 2024 fluticasone propionate 50 mcg/actuation nasal spray Administer 2 sprays into each nostril daily Commonly known as: FLONASE ibuprofen 800 mg tablet Take 1 tablet (800 mg total) by mouth every 6 (six) hours HOLD THIS MEDICATION UNTIL YOU FOLLOW UP WITH NEUROSURGERY Commonly known as: ADVIL,MOTRIN omega 5-qxs-dij-fish oil 360-1,200 mg capsule,delayed release(DR/EC) Take 1 capsule by mouth daily HOLD THIS MEDICATION UNTIL YOU FOLLOW UP WITH NEUROSURGERY omeprazole 20 mg capsule TAKE 1 CAPSULE BY MOUTH EVERY DAY Commonly known as: PriLOSEC senna 8.6 mg tablet Take 1 tablet by mouth 2 (two) times a day For: constipation Commonly known as: SENOKOT Sodium Fluoride 5000 Dry Mouth 1.1 % paste Generic drug: fluoride (sodium) tamsulosin 0.4 mg extended release capsule Take 1 capsule (0.4 mg total) by mouth daily Commonly known as: FLOMAX traMADoL 50 mg tablet TAKE 1 TABLET BY MOUTH EVERY 6 HOURS NEEDED FOR PAIN X 5 DAYS Commonly known as: ULTRAM triamcinolone 0.1 % cream PLEASE SEE ATTACHED FOR DETAILED DIRECTIONS Commonly known as: KENALOG vitamin E 1,000 unit capsule Take 5 capsules (5,000 Units total) by mouth daily HOLD THIS MEDICATION UNTIL YOU FOLLOW UP WITH NEUROSURGERY Commonly known as: AQUASOL E Vitamins B Complex tablet Take 1 tablet by mouth daily Generic drug: vitamin b complex Outpatient Follow-Up: Future Appointments Date Time Provider Department Center 07/06/2024 8:45 AM Derrell Mcintosh NP [facility] NL 07/31/2024 2:45 PM Sohan Rojas MD [facility] Cosigned by Anand Herrera MD at 05/19/2024 8:42 PM CDT documented in this encounter Discharge Instructions * Discharge Instructions* Merline Rapp NP - 05/19/2024 1:54 PM CDT NPH - Discharge Instructions You were admitted to the neurosurgery service for a normal pressure hydrocephalus (NPH) evaluation.During this admission you had a lumbar drain placed and cerebrospinal fluid (CSF) was drained hourly to evaluate your response. You were evaluated by physical therapy each day to determine how you responded to the CSF drainage and if symptoms improved. After your evaluation was completed, the lumbar drain was removed and you were discharged from the hospital. You will follow up with neurosurgery as an outpatient to further discuss the results of your NPH work up. The following are instructions and guidelines meant to help in your recovery once you have been discharged from the hospital. When to call our office Call our office immediately (phone numbers listed at the end of these instructions) if you experience the following symptoms: Fever greater than 101??F Nausea or vomiting Change in mental status Seizures Intractable headache Pain not relieved by pain medication or rest Call 911 immediately if you experience the following symptoms: Sudden weakness or difficulty speaking and/or swallowing Sudden onset persistent headache, with nausea and/or vomiting Sudden change or loss of vision New difficulty with breathing Chest pain Activity You may feel tired and run down for a period of time. It is normal to sleep more or take more naps.Light activity is ok but avoid heavy house work, yard work or strenuous exercise. Short walks are encouraged. Activities can be slowly increased as tolerated. Driving privileges are left up to the discretion of your physician and will be discussed further atyour follow up appointment. You cannot drive while taking narcotic pain medication. [place] and [place] law prohibit anyone from operating a motor vehicle within 6 months of having a seizure. Diet You can return to your usual diet, unless instructed otherwise by your doctor. Medications You should resume taking all of your normal medications, unless instructed otherwise by your doctor. However, you should not take any blood thinners or antiplatelet agents (such as Aspirin, Plavix, or Coumadin) or any anti- inflammatory medications (such as: Motrin, Advil, Ibuprofen, Celebrex, Vioxx, Naprosyn), unless specifically approved by your doctor. If you have questions about your normal medications (such as those prescribed for high blood pressure), call your family doctor or marketing underwriter. You may be given a prescription for pain medications, and possibly a laxative, as pain medications can cause constipation. Take the pain medicines as instructed. If your pain is not reasonably controlled by the medications, contact your doctor???s office. Follow up - Neurosurgery: You should follow up in Dr. Herrera's clinic in 2-3 weeks with no additional scans/tests necessary. - Void trial in 3-5 days. If you do not have a follow-up appointment, call to schedule one. - Primary Care: Please follow up with your Primary Care Provider within 1-2 weeks of discharge for a post hospital visit. Phone numbers Appointment Scheduling: Doctor???s Office: Dr. Anand Herrera, After hours emergency: or documented in this encounter Medications at Time [...] YOU FOLLOW UP WITH NEUROSURGERY 05/19/2024 4 docusate sodium (COLACE) 100 mg capsuleIndication s:constipation,St ool Softener Take 1 capsule (100 mg total) by mouth 2 (two) times a day 05/19/2024 4 donepeziL (ARICEPT) 10 mg tabletIndications [...] YOU FOLLOW UP WITH NEUROSURGERY 05/19/2024 4 omega 2-saa-coe-fish oil 360-1,200 mg capsule,delayed release(DR/EC) Take 1 capsule by mouth daily HOLD THIS MEDICATION UNTIL YOU FOLLOW UP WITH NEUROSURGERY 05/19/2024 4 omeprazole (PriLOSEC) 20 mg capsuleIndication s:Gastroesophagea l reflux disease without esophagitis TAKE 1 CAPSULE BY MOUTH EVERY DAY 90 capsule 1 03/02/2024 4 senna (SENOKOT) 8.6 mg tabletIndications :constipation Take 1 tablet by mouth 2 (two) times a day 05/19/2024 4 Sodium Fluoride 5000 Dry Mouth 1.1 % paste 07/23/2023 4 tamsulosin (FLOMAX) 0.4 mg extended release capsule Take 1 capsule (0.4 mg total) by mouth daily 90 capsule 1 09/23/2022 4 terbinafine (LamiSIL) 250 mg tablet Take 1 tablet (250 mg total) by mouth daily 05/01/2024 4 traMADoL (ULTRAM) 50 mg tablet TAKE 1 TABLET BY MOUTH EVERY 6 HOURS NEEDED FOR PAIN X 5 DAYS 12/28/2023 4 triamcinolone (KENALOG) 0.1 % cream PLEASE SEE ATTACHED FOR DETAILED DIRECTIONS 4 vitamin b complex (Vitamins B Complex) tablet Take 1 tablet by mouth daily 4 vitamin E (AQUASOL E) 1,000 unit capsule Take 5 capsules (5,000 Units total) by mouth daily HOLD THIS MEDICATION UNTIL YOU FOLLOW UP WITH NEUROSURGERY 05/19/2024 4 documented as of this encounter Ordered Prescriptions Prescription Sig Dispense Quantity Refills Last Filled Start Date End Date senna (SENOKOT) 8.6 mg tabletIndications :constipation Take 1 tablet by mouth 2 (two) times a day 05/19/2024 4 docusate sodium (COLACE) 100 mg capsuleIndication s:constipation,St ool Softener Take 1 capsule (100 mg total) by mouth 2 (two) times a day 05/19/2024 4 acetaminophen (TYLENOL) 325 mg tabletIndications :Pain Take 2 tablets (650 mg total) by mouth every 4 (four) hours as needed for pain 05/19/2024 4 finasteride (PROSCAR) 5 mg tablet Take 1 tablet (5 mg total) by mouth daily 05/20/2024 4 vitamin E (AQUASOL E) 1,000 unit capsule Take 5 capsules (5,000 Units total) by mouth daily HOLD THIS MEDICATION UNTIL YOU FOLLOW UP WITH NEUROSURGERY 05/19/2024 4 omega 6-ejy-rjp-fish oil 360-1,200 mg capsule,delayed release(DR/EC) Take 1 capsule by mouth daily HOLD THIS MEDICATION UNTIL YOU FOLLOW UP WITH NEUROSURGERY 05/19/2024 4 ibuprofen (ADVIL,MOTRIN) 800 mg tablet Take 1 tablet (800 mg total) by mouth every 6 (six) hours HOLD THIS MEDICATION UNTIL YOU FOLLOW UP WITH NEUROSURGERY 05/19/[address] (VOLTAREN) 75 mg EC tabletIndications :Degenerative lumbar spinal stenosis Take 1 tablet (75 mg total) by mouth 2 (two) times a day HOLD THIS MEDICATION UNTIL YOU FOLLOW UP WITH NEUROSURGERY 05/19/2024 4 documented in this encounter Discharge Disposition Disposition Code Departure Means Destination Comment s Discharge to [facility] Ambulance/EMS [facility] ([place], [place]) documented in this encounter Progress Notes * Roseanna Aburto MD - 05/19/2024 6:17 AM CDT Neurosurgery Daily Progress Note 05/19/2024 Hospital Course 05/15 Admitted for NPH LD trial. Med rec complete. Pre ROMEO 40. LD placed in TANNA. Hydral x1 for BP. 05/16 ROMEO 10. Alzheimers CSF lab neg. 05/17 ROMEO 10. 05/18 ROMEO 5. LD removed. Subjective no complaints and pain well controlled Objective Physical Exam Opens eyes voice, regards, follows commands Oriented x3 PERRL, EOMI, face symmetric, tongue midline BUE 5/5 BLE 5/5 Sensation grossly intact to light touch Vitals 24hr min/max vitals: Temp Min: 36.4 ??C (97.5 ??F) Max: 37.1 ??C (98.8 ??F) Pulse Min: 71 Max: 85 Resp Min: 16 Max: 18 SpO2 Min: 97 % Max: 100 % MAP (mmHg) Min: 67 Max: 101 Intake and Output I/O last 2 completed shifts: In: 842 [P.O.:842] Out: 1261 [Urine:1100] Medications Scheduled Scheduled Medications Medication Dose Route Frequency atorvastatin (LIPITOR) tablet 20 mg 20 mg oral Daily docusate sodium (COLACE) capsule 100 mg 100 mg oral BID Or docusate (COLACE) 10 mg/mL oral liquid 100 mg 100 mg feeding tube BID donepeziL (ARICEPT) tablet 10 mg 10 mg oral Nightly enoxaparin (LOVENOX) syringe 30 mg 30 mg subcutaneous Daily-2100 escitalopram (LEXAPRO) tablet 10 mg 10 mg oral Daily finasteride (PROSCAR) tablet 5 mg 5 mg oral Daily fluticasone furoate-vilanteroL (BREO ELLIPTA) 100-25 mcg/dose inhaler 1 puff 1 puff inhalation Daily fluticasone propionate (FLONASE) 50 mcg/actuation nasal spray 1 spray 1 spray each nostril BID senna (SENOKOT) tablet 1 tablet 1 tablet oral BID Or senna 1.76 mg/mL syrup 8.8 mg 8.8 mg feeding tube BID sodium chloride 0.9% flush 0.5-20 mL 0.5-20 mL intra-catheter Q8H MICHAELLE tamsulosin (FLOMAX) extended release capsule 0.4 mg 0.4 mg oral Daily As needed PRN Medications Medication Dose Route Frequency Last Admin acetaminophen (TYLENOL) tablet 650 mg 650 mg oral Q4H PRN 650 mg at 05/19/24 0134 Carrier Fluids for Secondary Infusion - 0.9% Sodium Chloride 30 mL intravenous PRN ondansetron (ZOFRAN) injection 4 mg 4 mg intravenous Q6H PRN ramelteon (ROZEREM) tablet 8 mg 8 mg oral Nightly PRN 8 mg at 05/18/242013 sodium chloride 0.9% flush 0.5-20 mL 0.5-20 mL intra-catheter PRN 10 mL at 05/17/24 0822 trimethobenzamide (TIGAN) injection 200 mg 200 mg intramuscular Q6H PRN Labs Lab Results Component Value Date SODIUM 137 05/19/2024 SODIUM 139 05/17/2024 SODIUM 140 05/16/2024 Lab Results Component Value Date GLUCOSE 109 05/19/2024 CALCIUM 9.4 05/19/2024 POTASSIUM 3.8 05/19/2024 CO2 27 05/19/2024 CHLORIDE 102 05/19/2024 BUNSER 22 05/19/2024 CREATININE 0.90 05/19/2024 Lab Results Component Value Date WBC 9.1 05/19/2024 WBC 8.9 05/17/2024 WBC 6.7 05/16/2024 HGB 12.5 (L) 05/19/2024 HGB 12.0 (L) 05/17/2024 HGB 11.9 (L) 05/16/2024 HCT 36.7 (L) 05/19/2024 HCT 35.1 (L) 05/17/2024 HCT 34.9 (L) 05/16/2024 LABPLAT 192 05/19/2024 LABPLAT 201 05/17/2024 LABPLAT 211 05/16/2024 Lab Results Component Value Date INR 1.14 05/15/2024 INR 0.99 01/31/2019 PT 12.3 05/15/2024 PT 13.4 01/31/2019 APTT 26 (L) 05/15/2024 APTT 30 01/31/2019 No components found for: TROPONIN PT/OT Evaluation PT Recommendation/Plan: [facility] OT Recommendation: [facility] Assessment/Plan Hospital Day: 5 This is a 84 y.o. male who presents with cognitive difficulties and memory problems. On exam, he isneurologically intact. Plan Dispo planning, SNF DVT prophylaxis: lovenox Responsible Team Lamonte Lafleur For any questions or concerns, please contact the nurse practitioner signed in to the chart. If youare unable to reach them, you may also contact the residents listed. If it is after 6pm or you are unable to reach the PUBLIC RELATIONS ACCOUNT SUPERVISOR or resident team, please page the Neurosurgery Call Pager at [phone]. Note created by Roseanna Aburto MD on 05/19/2024 at 6:17 AM. Cosigned by Anand Herrera MD at 05/19/2024 7:37 AM CDT Associated attestation - Anand Herrera MD - 05/19/2024 7:37 AM CDT I have seen and examined the patient on 05/19/24. I agree with the findings and plan of care as discussed with the resident/fellow.. * Roseanna Aburto MD - 05/18/2024 8:12 PM CDT Neurosurgery Brief note: Lumbar drain Removal Patient with lumbar drain. Decision made to discontinue lumbar drain. Drain removed. Site closed with single interrupted stitch using 3-0 monocryl suture. Patient tolerated the procedure well. No CSFleak noted after procedure. Drain tip intact. - monitor for drainage from drain site - please page NSGY pager utility worker production if any concerns ([phone]) Roseanna Aburto MD * Becca De Dios, PT - 05/18/2024 10:58 AM CDT Physical Therapy Physical Therapy Progress Note NOTE: This is a summary note of the munson components of the treatment session. For full details, review chart for all flowsheets documented on by this physical therapy clinician on this date. Vital signs documented in vital signs flowsheet. Care plan progress documented in Care Plan Activity. For questions, please review the treatment team and contact the PT or BEDSPREAD SEAMER currently assigned to this patient. If a physical therapy clinician is not assigned to this patient, please call [phone]. 05/18/24 1358 PT Last Visit Session Type Treatment PT Received On 05/18/24 Safe Environment Arm band checked;Patient found in supine;Session completed bedside;Gait belt utilized for all out of bed mobility Subjective Agreeable to Therapy Family/Caregiver Present No Precautions Precautions CSF drain;Fall risk Pain Assessment Pain Assessment No/denies pain Cognition Arousal/Alertness Alert Orientation Oriented to person Following Commands Follows one step commands without difficulty Balance Tests Balance Tests Yes Romeo Balance Scale 1. Sitting to Standing 1 2. Standing Unsupported 0 3. Sitting with Back Unsupported but Feet Supported on Floor or on a Stool 3 4. Standing to Sitting 0 5. Transfers 1 6. Standing Unsupported with Eyes Closed 0 7. Standing Unsupported with Feet Together 0 8. Reach Forward with Outstretched Arm While Standing 0 9. Clinical Neuropsychologist Object from Floor from a Standing Position 0 10. Turning to Look Behind Over Left and Right Shoulders While Standing 0 11. Turn [address] Alternate Foot on Step or Stool While Standing Unsupported 0 13. Standing Unsupported One Foot in Front 0 14. Standing on One Leg 0 Romeo Balance Score 5 Balance Balance Yes Static Sitting Balance Static Sitting-Balance Support No upper extremity supported;Feet supported Static Sitting-Sitting Surface Bed Static Sitting-Level of Assistance Close supervision Static Standing Balance Static Standing-Balance Support No upper extremity supported Static Standing-Standing Surface Floor Static Standing-Level of Assistance Minimum assistance Bed Mobility Bed Mobility Yes Bed Mobility 1 Bed Mobility From 1 Supine Bed Mobility Type 1 To Bed Mobility to 1 Edge of bed Level of Assistance 1 Moderate Assist Bed Mobility Comments 1 assist with elevation of trunk Transfers Transfer Yes Transfer 1 Transfer From 1 Sit Transfer Type 1 To and from Transfer to 1 Stand Technique 1 Sit to stand;Stand to sit Transfer Device 1 No device Transfer Level of Assistance 1 Minimum Assist Trials/Comments 1 decreased force production, decreased balance Ambulation Ambulation Yes Ambulation 1 Distance (ft) 1 15 Surface 1 Level tile Device 1 Hand held assist (x2) Assistance 1 Moderate Assist Gait: Requires assist with 1 Maintaining balance Gait: Requires verbal cues to 1 Improve upright posture;Increase step length;Pace activity;Utilize appropriate gait sequencing Gait Deviations 1 Base of support - decreased;Shuffling;Turns - difficulty;Step length - decreased Ambulation Comments 1 Gait speed not performed due to distance ambulated Stairs Stairs No Basic Mobility - 6 Click How much difficulty does the patient have: Turning over in bed 2 How much difficulty does the patient currently have: Sitting down and standing up from a chair witharms? 3 How much difficulty does the patient have: Moving from lying on back to sitting on the side of the bed? 2 How much difficulty does the patient have: Moving to and from a bed to a chair including wheelchair? 2 How much help does the patient currently need: Walk in hospital room? 2 How much help from another person does the patient currently need: Climbing 3-5 steps with a railing? 1 Total 6 Click Score (range 6-24) 12 Score Interpretation 32.23 Safe Environment End of Therapy Session Safe Environment End of Therapy Session Patient left in recliner;Chair alarm in place and activated;Call light within reach Plan Plan If this is the last note, consider this the discharge summary;Continue with current plan Recommendation/Plan PT Recommendation/Plan [facility] Patient at high risk for Falls;Injury due to reduced functional status;Injury due to balance deficits Recommend Inpatient Rehab/Acute Rehab due to Ability to actively participate in intensive therapy 3hours/day, 5 days/week or 900 minutes per week;Impaired ability to complete functional mobility;Requires greater than 25% physical assistance with most mobility tasks;Requires multiple therapy disciplines to address functional deficits;Requires skilled therapy interventions to address neurological deficits PT Frequency during current admission 3-5x/wk Progress during current admission No functional improvements PT - Next Appointment 05/22/24 PT Time Calculation PT Start Time 1058 PT Stop Time 1112 PT Time Calculation (min) 14 min Multi-Disciplinary Problems (from Physical Therapy) Active Problems Problem: PT Misc Start Date: 05/15/24 Goal Start Date Expected End Date End Date PT STG - Patient will score a 50/56 on the Romeo balance test 05/15/24 05/22/24 -- * Roseanna Aburto MD - 05/18/2024 7:48 AM CDT Neurosurgery Daily Progress Note 05/18/2024 Hospital Course 05/15 Admitted for NPH LD trial. Med rec complete. Pre ROMEO 40. LD placed in TANNA. Hydral x1 for BP. 05/16 ROMEO 10. Alzheimers CSF lab neg. 05/17 ROMEO 10. Subjective no complaints and pain well controlled Objective Physical Exam Opens eyes spontaneously, regards, follows commands Oriented x3 PERRL, EOMI, face symmetric, tongue midline No drift BUE 5/5 BLE 5/5 Sensation grossly intact to light touch LD site c/d/i Vitals 24hr min/max vitals: Temp Min: 36.5 ??C (97.7 ??F) Max: 37.6 ??C (99.7 ??F) Pulse Min: 65 Max: 81 Resp Min: 16 Max: 16 SpO2 Min: 97 % Max: 99 % MAP (mmHg) Min: 63 Max: 103 Intake and Output I/O last 2 completed shifts: In: - Out: 475 [Urine:300] Medications Scheduled Scheduled Medications Medication Dose Route Frequency atorvastatin (LIPITOR) tablet 20 mg 20 mg oral Daily docusate sodium (COLACE) capsule 100 mg 100 mg oral BID Or docusate (COLACE) 10 mg/mL oral liquid 100 mg 100 mg feeding tube BID donepeziL (ARICEPT) tablet 10 mg 10 mg oral Nightly enoxaparin (LOVENOX) syringe 30 mg 30 mg subcutaneous Daily-2100 escitalopram (LEXAPRO) tablet 10 mg 10 mg oral Daily finasteride (PROSCAR) tablet 5 mg 5 mg oral Daily fluticasone furoate-vilanteroL (BREO ELLIPTA) 100-25 mcg/dose inhaler 1 puff 1 puff inhalation Daily fluticasone propionate (FLONASE) 50 mcg/actuation nasal spray 1 spray 1 spray each nostril BID senna (SENOKOT) tablet 1 tablet 1 tablet oral BID Or senna 1.76 mg/mL syrup 8.8 mg 8.8 mg feeding tube BID sodium chloride 0.9% flush 0.5-20 mL 0.5-20 mL intra-catheter Q8H MICHAELLE tamsulosin (FLOMAX) extended release capsule 0.4 mg 0.4 mg oral Daily As needed PRN Medications Medication Dose Route Frequency Last Admin acetaminophen (TYLENOL) tablet 650 mg 650 mg oral Q4H PRN 650 mg at 05/17/241958 Carrier Fluids for Secondary Infusion - 0.9% Sodium Chloride 30 mL intravenous PRN ondansetron (ZOFRAN) injection 4 mg 4 mg intravenous Q6H PRN ramelteon (ROZEREM) tablet 8 mg 8 mg oral Nightly PRN 8 mg at 05/17/241999 sodium chloride 0.9% flush 0.5-20 mL 0.5-20 mL intra-catheter PRN 10 mL at 05/17/24 08 trimethobenzamide (TIGAN) injection 200 mg 200 mg intramuscular Q6H PRN Labs Lab Results Component Value Date SODIUM 139 05/17/2024 SODIUM 140 05/16/2024 SODIUM 142 05/15/2024 Lab Results Component Value Date GLUCOSE 125 05/17/2024 CALCIUM 9.5 05/17/2024 POTASSIUM 4.3 05/17/2024 CO2 26 05/17/2024 CHLORIDE 103 05/17/2024 BUNSER 24 05/17/2024 CREATININE 1.30 05/17/2024 Lab Results Component Value Date WBC 8.9 05/17/2024 WBC 6.7 05/16/2024 WBC 7.8 05/15/2024 HGB 12.0 (L) 05/17/2024 HGB 11.9 (L) 05/16/2024 HGB 11.7 (L) 05/15/2024 HCT 35.1 (L) 05/17/2024 HCT 34.9 (L) 05/16/2024 HCT 35.0 (L) 05/15/2024 LABPLAT 201 05/17/2024 LABPLAT 211 05/16/2024 LABPLAT 220 05/15/2024 Lab Results Component Value Date INR 1.14 05/15/2024 INR 0.99 01/31/2019 PT 12.3 05/15/2024 PT 13.4 01/31/2019 APTT 26 (L) 05/15/2024 APTT 30 01/31/2019 No components found for: TROPONIN PT/OT Evaluation PT Recommendation[facility]Plan[facility] OT Recommendation: [facility] Assessment/Plan Hospital Day: 4 This is a 84 y.o. male who presents with cognitive difficulties and memory problems. On exam, he isneurologically intact. Plan Daily ROMEO, will plan to dc LD and dc home today after LD@7cc/hr DVT prophylaxis: lovenox Responsible Team Lamonte Lafleur For any questions or concerns, please contact the nurse practitioner signed in to the chart. If youare unable to reach them, you may also contact the residents listed. If it is after 6pm or you are unable to reach the PUBLIC RELATIONS ACCOUNT SUPERVISOR or resident team, please page the Neurosurgery Call Pager at [phone]. Note created by Roseanna Aburto MD on 05/18/2024 at 7:48 AM. Cosigned by Anand Herrera MD at 05/18/2024 7:56 AM CDT Associated attestation - Anand Herrera MD - 05/18/2024 7:56 AM CDT I have seen and examined the patient on 05/18/24. I agree with the findings and plan of care as discussed with the resident/fellow.. * Sofie Fletcher OT - 05/17/2024 2:04 PM CDT Occupational Therapy Occupational Therapy Evaluation Note NOTE: This is a summary note of the munson components of the evaluation session. For full details, review chart for all flowsheets documented on by this occupational therapy clinician on this date. Vital signs are documented in vital signs flowsheet. For questions, please review the treatment team and contact the occupational therapist currently assigned to this patient. If an occupational therapist is not assigned to this patient, please call [phone]. 05/17/24 0823 General Chart Reviewed Yes Session Type Evaluation OT Received On 05/17/24 Safe Environment Arm band checked;Patient found in supine Subjective Agreeable to Therapy Family/Caregiver Present No Occupational Therapy-Patient Goal Pt did not state at this time but verbalized agreement to OT planof care Precautions Precautions CSF drain;Fall risk Weight Bearing Restrictions No Precaution Handout Issued No Precaution Comments Verbally reviewed precautions, pt verbalized understanding and maintained throughout session Home Living Type of Home House Home Layout One level;Performs ADLs on one level Home Access Stairs to enter with rails Entrance Stairs-Number of Steps 3 Bathroom Shower/Tub Tub/shower unit Bathroom Toilet Standard Bathroom Equipment Shower chair Home Mobility Equipment-Available None Home Mobility Equipment-Currently Using None Additional Comments Pt reports no AD prior to current admission Prior Function Level of [place] Independent with ADLs;Independent functional transfers;Independent with ambulation;Needs assistance with homemaking Lives With Alone Receives Help From Family (BEDSPREAD SEAMER available via daughters) Driving No ADL Assistance Independent Instrumental ADL (IADL) Assistance Needs assistance (Pt reports daughters complete IADLs) Fall within the last 6 months Yes Fall within the last 6 months comment Pt endorses 1 fall 2/2 water on floor Prior Function Comments Pt reports IND in all ADLs prior to current admission ADL ADLS (WDL) X Grooming Grooming: Where assessed Standing at sink Grooming: Level of assistance Minimum Assist Grooming: Assistance with Increased time to complete (SBA for task, Min A for standing balance) LE Dressing LE Dressing: Where assessed Edge of bed LE Dressing: Level of assistance Minimum Assist LE Dressing: Assistance with Increased time to complete;Safety (SBA for task, Min A for standing balance) Toileting Toileting: Where assessed Toilet Toileting: Level of assistance Minimum Assist Toileting: Assistance with Increased time to complete;Safety (SBA for task, Min A for standing balance) Room Mobility Room Mobility: Where assessed bed <> toilet Health Management: Equipment Other (Comment) (IV pole) Room Mobility: Level of Assistance Minimum Assist Room Mobility comment Min A for balance/safety, VC for sequencing Toilet Transfers Toilet Transfer From Bed Toilet Transfer Type To and from Toilet Transfer to Standard toilet Toilet Transfer Technique Ambulating Toilet Transfer: Equipment IV Pole Toilet Transfers Minimal assistance Toilet Transfers Comments Min A for force production and balance/safety, VC for sequencing Pain Assessment Pain Assessment 0-10 Pain Score 3 Pain Location Shoulder Pain Interventions Repositioned;Distraction Cognition Arousal/Alertness Alert;Appropriate responses to stimuli Attention Span Attends with cues to redirect Memory Decreased short term memory (via SBT) Current communication Appears Intact Orientation Oriented to person;Oriented to place Following Commands Follows one step commands with repetition Safety Judgment Decreased awareness of need for safety Awareness of Errors Decreased awareness of errors Insight Decreased awareness of deficits Problem Solving Assistance required to identify errors made;Assistance required to generate solutions;Assistance required to implement solutions Compliance/Behavior Easy to engage Perseveration Not present Cognitive Tests Cognitive Tests Yes Short Blessed Test What year is it now? 0 What month is it now? 0 Repeat this name and address after me Kervin Middleton [address] [place] [address] Without looking at the clock, tell me what time it is 3 Count aloud backwards from 20-1 2 Say the months of the year backwards in reverse order 4 Repeat the name and address I asked you to remember 4 Short Blessed Total Score 13 Short Blessed Comments Impaired Sensation Light Touch WFL Numbness/Tingling No Motor Planning Motor Planning Appears intact Coordination Fine Motor WFL Serial Opposition WFL Hand Preference Hand Preference Right Hand Function Coordination Functional Gross Grasp Functional Reach/Grasp RUE Reach WFL LUE Reach WFL Balance Tests Balance Tests Yes Tinetti Sitting Balance 1 Arises 1 Attempts to Arise 1 Immediate Standing Balance (First 5 Seconds) 1 Standing Balance 1 Nudged 1 Eyes Closed 1 Turned 360 Degrees: Steadiness 1 Turned 360 Degrees: Continuity of Steps 0 Sitting Down 1 Balance Score 9 Balance Balance Yes Static Sitting Balance Static Sitting-Balance Support No upper extremity supported Static Sitting-Sitting Surface Bed Static Sitting-Level of Assistance Independent Dynamic Sitting Balance Dynamic Sitting-Balance Support No upper extremity supported Dynamic Sitting-Balance Lateral lean;Forward lean;Reaching for objects (Pt completed LBD in sitting) Dynamic Sitting-Sitting Surface Chair Dynamic Sitting-Level of Assistance Close supervision Dynamic Sitting-Comments safety Static Standing Balance Static Standing-Balance Support Unilateral upper extremity supported (IV pole) Static Standing-Standing Surface Floor Static Standing-Level of Assistance Minimum assistance Static Standing-Comment/# of Minutes safety Dynamic Standing Balance Dynamic Standing-Balance Support No upper extremity supported Dynamic Standing-Balance Lateral lean;Forward lean;Reaching for objects (Pt completed grooming standing at sink) Dynamic Standing-Standing Surface Floor Dynamic Standing-Level of Assistance Minimum assistance Dynamic Standing-Comments safety Bed Mobility Bed Mobility Yes Bed Mobility 1 Bed Mobility From 1 Supine Bed Mobility Type 1 To Bed Mobility to 1 Edge of bed Level of Assistance 1 Standby Assist Bed Mobility Comments 1 SBA for balance/safety, VC for sequencing Transfers Transfer Yes Transfer 1 Transfer From 1 Sit Transfer Type 1 To and from Transfer to 1 Stand Technique 1 Sit to stand;Stand to sit Transfer Device 1 IV pole Transfer Level of Assistance 1 Minimum Assist Trials/Comments 1 Min A for force production and initial balance/safety, VC for sequencing RUE Assessment RUE Assessment WFL LUE Assessment LUE Assessment WFL Other Comments Comments Pt educated on plan of care and d/c recommendations, pt verbalized understanding and agreement. Pt educated on strategies to promote IND in self care, pt verbalized understanding but required cues throughout session for implementation. Pt required frequent cues for redirection, orientation fluctuations observed within 5minute span, benefits from reorientation. Daily Activity - 6 Clicks Putting on and taking off regular lower body clothing 3 Bathing 3 Toileting 3 Putting on and taking off upper body clothing 3 Personal Grooming 3 Eating Meals 4 Total Score (range 6-24) 19 Score Interpretation 40.22 Safe Environment End of Therapy Session Safe Environment End of Therapy Session Patient left in recliner;Call light within reach;Overbed table within reach (Sitter present throughout session) Assessment Problem List Decreased safe judgment during ADL;Decreased cognition;Decreased endurance;Decreased balance;Decreased functional mobility;Decreased ADL independence;Decreased IADL independence;Poor/Decreased functional positioning Barriers to Discharge Current Mobility Status;Current ADL Status;Decreased caregiver support;Cognition;Decreased safety awareness Barrier Comments Fall Risk Plan Plan Plan of care initiated;If this is the last note, consider this the discharge summary Recommendation/Plan OT Recommendation [facility] Patient at high risk for Readmission;Falls;Injury due to decreased ability to care for [...] the home;Skilled therapy needed to address functional deficits OT Frequency during current admission 2-3x/wk Treatment/Interventions during current admission ADL/IADL retraining;Balance Training;Bed mobility;Compensatory technique education;Endurance training;Functional activity;Functional mobility training;Functional transfer training;Strengthening;Therapeutic activity;Therapeutic exercise;Transfer traini martina OT - Next Appointment 05/19/24 OT - OK to Discharge No OT Evaluation Complete Yes OT Time Calculation OT Start Time 822 OT Stop Time 901 OT Time Calculation (min) 39 min Multi-Disciplinary Problems (from Occupational Therapy) Active Problems Problem: Dressings Lower Extremities Start Date: 05/17/24 Goal Start Date Expected End Date End Date STG - Patient to complete lower body dressing with SBA 05/17/24 05/24/24 -- Problem: Grooming Start Date: 05/17/24 Goal Start Date Expected End Date End Date STG - Patient will complete grooming with SBA, standing at sink 05/17/24 05/24/24 -- Problem: Toileting Start Date: 05/17/24 Goal Start Date Expected End Date End Date STG - Patient will complete toileting tasks with SBA 05/17/24 05/24/24 -- Problem: Transfers Start Date: 05/17/24 Goal Start Date Expected End Date End Date STG - Patient will perform toilet transfer with SBA to toilet, AD PRN 05/17/24 05/24/24 -- Problem: OT Misc Start Date: 05/17/24 Goal Start Date Expected End Date End Date Patient to complete ADLs and functional transfers with Mod I 05/17/24 05/24/24 -- * Ashley Morris, PT - 05/17/2024 11:16 AM CDT Physical Therapy Physical Therapy Progress Note NOTE: This is a summary note of the munson components of the treatment session. For full details, review chart for all flowsheets documented on by this physical therapy clinician on this date. Vital signs documented in vital signs flowsheet. Care plan progress documented in Care Plan Activity. For questions, please review the treatment team and contact the PT or BEDSPREAD SEAMER currently assigned to this patient. If a physical therapy clinician is not assigned to this patient, please call [phone]. 05/17/24 1116 PT Last Visit Session Type Treatment PT Received On 05/17/24 Safe Environment Arm band checked;Patient found sitting in chair;Session completed bedside;Gait belt utilized for all out of bed mobility Subjective Agreeable to Therapy Family/Caregiver Present (sitter present in room) Precautions Precautions CSF drain;Fall risk Pain Assessment Pain Assessment No/denies pain Cognition Arousal/Alertness Alert Orientation Oriented to person;Oriented to place;Oriented to time (month only) Romeo Balance Scale 1. Sitting to Standing 1 2. Standing Unsupported 1 3. Sitting with Back Unsupported but Feet Supported on Floor or on a Stool 4 4. Standing to Sitting 3 5. Transfers 1 6. Standing Unsupported with Eyes Closed 0 7. Standing Unsupported with Feet Together 0 8. Reach Forward with Outstretched Arm While Standing 0 9. Clinical Neuropsychologist Object from Floor from a Standing Position 0 10. Turning to Look Behind Over Left and Right Shoulders While Standing 0 11. Turn [address] Alternate Foot on Step or Stool While Standing Unsupported 0 13. Standing Unsupported One Foot in Front 0 14. Standing on One Leg 0 Romeo Balance Score 10 Static Sitting Balance Static Sitting-Level of Assistance Independent Static Standing Balance Static Standing-Level of Assistance Minimum assistance Transfer 1 Transfer From 1 Sit Transfer Type 1 To and from Transfer to 1 Stand Technique 1 Sit to stand;Stand to sit Transfer Device 1 No device Transfer Level of Assistance 1 Minimum Assist Trials/Comments 1 assist with balance Ambulation 1 Distance (ft) 1 25 Surface 1 Level tile Device 1 IV pole;Hand held assist Assistance 1 Minimum Assist Gait: Requires assist with 1 Maintaining balance Gait: Requires verbal cues to 1 Utilize appropriate gait sequencing;Improve upright posture;Increase step length Gait Deviations 1 Base of support - decreased;Shuffling;Step length - decreased;Turns - difficulty Quality of Gait 1 decreased knee extension Basic Mobility - 6 Click How much difficulty does the patient have: Turning over in bed 4 How much difficulty does the patient currently have: Sitting down and standing up from a chair witharms? 3 How much difficulty does the patient have: Moving from lying on back to sitting on the side of the bed? 4 How much difficulty does the patient have: Moving to and from a bed to a chair including wheelchair? 3 How much help does the patient currently need: Walk in hospital room? 3 How much help from another person does the patient currently need: Climbing 3-5 steps with a railing? 3 Total 6 Click Score (range 6-24) 20 Score Interpretation 43.99 Safe Environment End of Therapy Session Safe Environment End of Therapy Session Patient left in recliner;Chair alarm in place and activated;RN notified;Call light within reach Plan Plan Continue with current plan;If this is the last note, consider this the discharge summary Recommendation/Plan PT Recommendation/Plan [facility] Patient at high risk for Falls;Readmission;Injury due to reduced functional status;Injury due to balance deficits Recommend SNF due to Risk of injury at home;Unable to safely care for self in the home;Skilled therapy needed to address functional deficits;Skilled therapy needed for patient to return to prior level of independence PT Frequency during current admission Daily PT - Next Appointment 05/18/24 PT Time Calculation PT Start Time 1116 PT Stop Time 1139 PT Time Calculation (min) 23 min Multi-Disciplinary Problems (from Physical Therapy) Active Problems Problem: PT Misc Start Date: 05/15/24 Goal Start Date Expected End Date End Date PT STG - Patient will score a 50/56 on the Romeo balance test 05/15/24 05/22/24 -- * Roseanna Aburto MD - 05/17/2024 9:21 AM CDT Neurosurgery Daily Progress Note 05/17/2024 Hospital Course 05/15 Admitted for NPH LD trial. Med rec complete. Pre ROMEO 40. LD placed in TANNA. Hydral x1 for BP. 05/16 ROMEO 10. Alzheimers CSF lab neg. Subjective no complaints and pain well controlled Objective Physical Exam Opens eyes spontaneously, regards, follows commands Oriented x3 PERRL, EOMI, face symmetric, tongue midline No drift BUE 5/5 BLE 5/5 Sensation grossly intact to light touch Vitals 24hr min/max vitals: Temp Min: 36.5 ??C (97.7 ??F) Max: 37.4 ??C (99.3 ??F) Pulse Min: 65 Max: 77 Resp Min: 14 Max: 17 SpO2 Min: 97 % Max: 100 % MAP (mmHg) Min: 65 Max: 93 Intake and Output I/O last 2 completed shifts: In: - Out: 593 [Urine:425] Medications Scheduled Scheduled Medications Medication Dose Route Frequency atorvastatin (LIPITOR) tablet 20 mg 20 mg oral Daily docusate sodium (COLACE) capsule 100 mg 100 mg oral BID Or docusate (COLACE) 10 mg/mL oral liquid 100 mg 100 mg feeding tube BID donepeziL (ARICEPT) tablet 10 mg 10 mg oral Nightly enoxaparin (LOVENOX) syringe 30 mg 30 mg subcutaneous Daily-2099 escitalopram (LEXAPRO) tablet 10 mg 10 mg oral Daily finasteride (PROSCAR) tablet 5 mg 5 mg oral Daily fluticasone furoate-vilanteroL (BREO ELLIPTA) 100-25 mcg/dose inhaler 1 puff 1 puff inhalation Daily (RT) fluticasone propionate (FLONASE) 50 mcg/actuation nasal spray 1 spray 1 spray each nostril BID senna (SENOKOT) tablet 1 tablet 1 tablet oral BID Or senna 1.76 mg/mL syrup 8.8 mg 8.8 mg feeding tube BID sodium chloride 0.9% flush 0.5-20 mL 0.5-20 mL intra-catheter Q8H MICHAELLE tamsulosin (FLOMAX) extended release capsule 0.4 mg 0.4 mg oral Daily As needed PRN Medications Medication Dose Route Frequency Last Admin acetaminophen (TYLENOL) tablet 650 mg 650 mg oral Q4H PRN 650 mg at 05/17/24 0306 Carrier Fluids for Secondary Infusion - 0.9% Sodium Chloride 30 mL intravenous PRN ondansetron (ZOFRAN) injection 4 mg 4 mg intravenous Q6H PRN sodium chloride 0.9% flush 0.5-20 mL 0.5-20 mL intra-catheter PRN 10 mL at 05/17/24 0822 trimethobenzamide (TIGAN) injection 200 mg 200 mg intramuscular Q6H PRN Labs Lab Results Component Value Date SODIUM 140 05/16/2024 SODIUM 142 05/15/2024 SODIUM 138 05/15/2024 Lab Results Component Value Date GLUCOSE 121 05/16/2024 CALCIUM 9.4 05/16/2024 POTASSIUM 3.7 05/16/2024 CO2 26 05/16/2024 CHLORIDE 104 05/16/2024 BUNSER 25 05/16/2024 CREATININE 1.04 05/16/2024 Lab Results Component Value Date WBC 6.7 05/16/2024 WBC 7.8 05/15/2024 WBC 6.9 05/15/2024 HGB 11.9 (L) 05/16/2024 HGB 11.7 (L) 05/15/2024 HGB 12.0 (L) 05/15/2024 HCT 34.9 (L) 05/16/2024 HCT 35.0 (L) 05/15/2024 HCT 35.6 (L) 05/15/2024 LABPLAT 211 05/16/2024 LABPLAT 220 05/15/2024 LABPLAT 196 05/15/2024 Lab Results Component Value Date INR 1.14 05/15/2024 INR 0.99 01/31/2019 PT 12.3 05/15/2024 PT 13.4 01/31/2019 APTT 26 (L) 05/15/2024 APTT 30 01/31/2019 No components found for: TROPONIN PT/OT Evaluation PT Recommendation/Plan: [facility] Assessment/Plan Hospital Day: 3 This is a 84 y.o. male who presents with cognitive difficulties and memory problems. On exam, he isneurologically intact. Plan Daily ROMEO LD@7cc/hr DVT prophylaxis: lovenox Responsible Team Lamonte Lafleur For any questions or concerns, please contact the nurse practitioner signed in to the chart. If youare unable to reach them, you may also contact the residents listed. If it is after 6pm or you are unable to reach the PUBLIC RELATIONS ACCOUNT SUPERVISOR or resident team, please page the Neurosurgery Call Pager at [phone]. Note created by Roseanna Aburto MD on 05/17/2024 at 9:21 AM. Cosigned by Anand Herrera MD at 05/17/2024 2:26 PM CDT * Ashley Morris, PT - 05/16/2024 10:23 AM CDT Physical Therapy Physical Therapy Progress Note NOTE: This is a summary note of the munson components of the treatment session. For full details, review chart for all flowsheets documented on by this physical therapy clinician on this date. Vital signs documented in vital signs flowsheet. Care plan progress documented in Care Plan Activity. For questions, please review the treatment team and contact the PT or BEDSPREAD SEAMER currently assigned to this patient. If a physical therapy clinician is not assigned to this patient, please call [phone]. 05/16/24 1023 PT Last Visit Session Type Treatment PT Received On 05/16/24 Safe Environment Arm band checked;Patient found in supine;Session completed bedside;Gait belt utilized for all out of bed mobility Subjective Agreeable to Therapy Precautions Precautions CSF drain;Fall risk Pain Assessment Pain Assessment (reported back and neck pain, did not rate) Cognition Orientation Oriented to person;Oriented to place;Oriented to time Romeo Balance Scale 1. Sitting to Standing 1 2. Standing Unsupported 1 3. Sitting with Back Unsupported but Feet Supported on Floor or on a Stool 4 4. Standing to Sitting 3 5. Transfers 1 6. Standing Unsupported with Eyes Closed 0 7. Standing Unsupported with Feet Together 0 8. Reach Forward with Outstretched Arm While Standing 0 9. Clinical Neuropsychologist Object from Floor from a Standing Position 0 10. Turning to Look Behind Over Left and Right Shoulders While Standing 0 11. Turn [address] Alternate Foot on Step or Stool While Standing Unsupported 0 13. Standing Unsupported One Foot in Front 0 14. Standing on One Leg 0 Romeo Balance Score 10 Bed Mobility 1 Bed Mobility From 1 Supine Bed Mobility Type 1 To Bed Mobility to 1 Edge of bed Level of Assistance 1 Modified Independent Bed Mobility Comments 1 HOB elevated Transfer 1 Transfer From 1 Sit Transfer Type 1 To and from Transfer to 1 Stand Technique 1 Sit to stand;Stand to sit Transfer Device 1 No device Transfer Level of Assistance 1 Minimum Assist Trials/Comments 1 assist with balance Transfers 2 Transfer From 2 Bed;Sit Transfer Type 2 To Transfer to 2 Chair with arms Technique 2 Stand and step Transfer Device 2 Hand held assist Transfer Level of Assistance 2 Minimum Assist Trials/Comments 2 assist with balance Ambulation 1 Distance (ft) 1 25 Surface 1 Level tile Device 1 IV pole Assistance 1 Minimum Assist Gait Deviations 1 Shuffling;Step length - decreased;Turns - difficulty Quality of Gait 1 assist with balance Basic Mobility - 6 Click How much difficulty does the patient have: Turning over in bed 4 How much difficulty does the patient currently have: Sitting down and standing up from a chair witharms? 3 How much difficulty does the patient have: Moving from lying on back to sitting on the side of the bed? 4 How much difficulty does the patient have: Moving to and from a bed to a chair including wheelchair? 3 How much help does the patient currently need: Walk in hospital room? 3 How much help from another person does the patient currently need: Climbing 3-5 steps with a railing? 3 Total 6 Click Score (range 6-24) 20 Score Interpretation 43.99 Safe Environment End of Therapy Session Safe Environment End of Therapy Session Patient left in recliner;Chair alarm in place and activated;RN notified;Call light within reach (sitter present in room) Plan Plan Alter current plan;If this is the last note, consider this the discharge summary Recommendation/Plan PT Recommendation/Plan [facility] Facility Patient at high risk for Falls;Readmission;Injury due to reduced functional status;Injury due to balance deficits Recommend SNF due to Risk of injury at home;Unable to safely care for self in the home;Skilled therapy needed to address functional deficits;Skilled therapy needed for patient to return to prior level of independence PT Frequency during current admission Daily PT - Next Appointment 05/17/24 Time Calculation Start Time 1023 Stop Time 1038 Time Calculation (min) 15 min Multi-Disciplinary Problems (from Physical Therapy) Active Problems Problem: PT Misc Start Date: 05/15/24 Goal Start Date Expected End Date End Date PT STG - Patient will score a 50/56 on the Romeo balance test 05/15/24 05/22/24 -- * Jdoy Workman, OT - 05/16/2024 7:51 AM CDT 05/16/24 0751 General OT Missed Visit Reason Bedrest * Chris Rubin MD PhD - 05/16/2024 6:21 AM CDT Neurosurgery Daily Progress Note 05/16/2024 Hospital Course 05/15 Admitted for NPH LD trial. Med rec complete. Pre ROMEO 40. LD placed in [facility]. Hydral x1 for BP. Subjective no complaints and pain well controlled Objective Physical Exam Opens eyes spontaneously, regards, follows commands Oriented x1 (name) PERRL, EOMI, face symmetric, tongue midline No drift BUE 5/5 BLE 5/5 Sensation grossly intact to light touch Vitals 24hr min/max vitals: Temp Min: 36.3 ??C (97.3 ??F) Max: 37 ??C (98.6 ??F) Pulse Min: 46 Max: 82 Resp Min: 12 Max: 14 SpO2 Min: 99 % Max: 100 % MAP (mmHg) Min: 67 Max: 114 Intake and Output I/O last 2 completed shifts: In: - Out: 514 [Urine:500] Medications Scheduled Scheduled Medications Medication Dose Route Frequency atorvastatin (LIPITOR) tablet 20 mg 20 mg oral Daily docusate sodium (COLACE) capsule 100 mg 100 mg oral BID Or docusate (COLACE) 10 mg/mL oral liquid 100 mg 100 mg feeding tube BID donepeziL (ARICEPT) tablet 10 mg 10 mg oral Nightly escitalopram (LEXAPRO) tablet 10 mg 10 mg oral Daily finasteride (PROSCAR) tablet 5 mg 5 mg oral Daily fluticasone furoate-vilanteroL (BREO ELLIPTA) 100-25 mcg/dose inhaler 1 puff 1 puff inhalation Daily (RT) fluticasone propionate (FLONASE) 50 mcg/actuation nasal spray 1 spray 1 spray each nostril BID senna (SENOKOT) tablet 1 tablet 1 tablet oral BID Or senna 1.76 mg/mL syrup 8.8 mg 8.8 mg feeding tube BID sodium chloride 0.9% flush 0.5-20 mL 0.5-20 mL intra-catheter Q8H MICHAELLE tamsulosin (FLOMAX) extended release capsule 0.4 mg 0.4 mg oral Daily As needed PRN Medications Medication Dose Route Frequency Last Admin acetaminophen (TYLENOL) tablet 650 mg 650 mg oral Q4H PRN 650 mg at 05/15/240 Carrier Fluids for Secondary Infusion - 0.9% Sodium Chloride 30 mL intravenous PRN ondansetron (ZOFRAN) injection 4 mg 4 mg intravenous Q6H PRN sodium chloride 0.9% flush 0.5-20 mL 0.5-20 mL intra-catheter PRN trimethobenzamide (TIGAN) injection 200 mg 200 mg intramuscular Q6H PRN Labs Lab Results Component Value Date SODIUM 142 05/15/2024 SODIUM 138 05/15/2024 SODIUM 138 02/28/2024 Lab Results Component Value Date GLUCOSE 109 05/15/2024 CALCIUM 9.6 05/15/2024 POTASSIUM 4.4 05/15/2024 CO2 28 05/15/2024 CHLORIDE 105 05/15/2024 BUNSER 20 05/15/2024 CREATININE 1.23 05/15/2024 Lab Results Component Value Date WBC 7.8 05/15/2024 WBC 6.9 05/15/2024 WBC 6.2 05/15/2024 HGB 11.7 (L) 05/15/2024 HGB 12.0 (L) 05/15/2024 HGB 11.1 (L) 05/15/2024 HCT 35.0 (L) 05/15/2024 HCT 35.6 (L) 05/15/2024 HCT 33.0 (L) 05/15/2024 LABPLAT 220 05/15/2024 LABPLAT 196 05/15/2024 LABPLAT 195 05/15/2024 Lab Results Component Value Date INR 1.14 05/15/2024 INR 0.99 01/31/2019 PT 12.3 05/15/2024 PT 13.4 01/31/2019 APTT 26 (L) 05/15/2024 APTT 30 01/31/2019 No components found for: TROPONIN PT/OT Evaluation PT Recommendation/Plan: Home with intermittent assist Assessment/Plan Hospital Day: 2 This is a 84 y.o. male who presents with cognitive difficulties and memory problems. On exam, he isneurologically intact. Plan [ ] fu alzheimer's CSF (in proc) LD@7cc/hr (70) DVT prophylaxis: lovenox Responsible Team Lamonte Lafleur For any questions or concerns, please contact the nurse practitioner signed in to the chart. If youare unable to reach them, you may also contact the residents listed. If it is after 6pm or you are unable to reach the PUBLIC RELATIONS ACCOUNT SUPERVISOR or resident team, please page the Neurosurgery Call Pager at [phone]. Note created by Chris Rubin MD PhD on 05/16/2024 at 6:21 AM. Cosigned by Anand Herrera MD at 05/16/2024 6:35 AM CDT Associated attestation - Anand Herrera MD - 05/16/2024 6:35 AM CDT I have seen and examined the patient on 05/16/24. I agree with the findings and plan of care as documented in the resident's/fellow's note.. * Ashley Morris, PT - 05/15/2024 11:17 AM CDT Physical Therapy Physical Therapy Evaluation Note NOTE: This is a summary note of the munson components of the evaluation session. For full details, review chart for all flowsheets documented on by this physical therapy clinician on this date. Vital signs are documented in the vital signs flowsheet. For questions, please review the treatment team and contact the PT or BEDSPREAD SEAMER currently assigned to this patient. If a physical therapy clinician is not assigned to this patient, please call [phone]. 05/15/24 1118 General Chart Reviewed Yes Session Type Evaluation PT Received On 05/15/24 Safe Environment Arm band checked;Session completed bedside;Gait belt utilized for all out of bed mobility;Patient found in supine Subjective Agreeable to Therapy Precautions Precautions Fall risk Home Living Type of Home House Home Layout One level Home Access Stairs to enter with rails Entrance Stairs-Number of Steps 1 Home Mobility Equipment-Available None Home Mobility Equipment-Currently Using None Prior Function Level of [place] Independent with ADLs;Independent functional transfers;Independent with ambulation Lives With Alone Receives Help From Family (party plan sales unit advisor assist) Fall within the last 6 months Yes Fall within the last 6 months comment 2 falls- LOB Pain Assessment Pain Assessment No/denies pain Cognition Arousal/Alertness Alert Orientation Oriented to person;Oriented to place;Oriented to time Sensation Light Touch WFL (bilateral LEs) Romeo Balance Scale 1. Sitting to Standing 3 2. Standing Unsupported 4 3. Sitting with Back Unsupported but Feet Supported on Floor or on a Stool 4 4. Standing to Sitting 3 5. Transfers 3 6. Standing Unsupported with Eyes Closed 3 7. Standing Unsupported with Feet Together 3 8. Reach Forward with Outstretched Arm While Standing 3 9. Clinical Neuropsychologist Object from Floor from a Standing Position 3 10. Turning to Look Behind Over Left and Right Shoulders While Standing 4 11. Turn [address] Foot on Step or Stool While Standing Unsupported 2 13. Standing Unsupported One Foot in Front 2 14. Standing on One Leg 1 Romeo Balance Score 40 Bed Mobility 1 Bed Mobility From 1 Supine Bed Mobility Type 1 To Bed Mobility to 1 Edge of bed Level of Assistance 1 Modified Independent Bed Mobility Comments 1 HOB elevated Transfer 1 Transfer From 1 Sit Transfer Type 1 To and from Transfer to 1 Stand Technique 1 Sit to stand;Stand to sit Transfer Device 1 No device Transfer Level of Assistance 1 Distant supervision Transfers 2 Transfer From 2 Bed;Sit Transfer Type 2 To Transfer to 2 Chair with arms Technique 2 Stand and step Transfer Device 2 No device Transfer Level of Assistance 2 Distant supervision Ambulation 1 Distance (ft) 1 400 Surface 1 Level tile Device 1 No device Assistance 1 Distant supervision Gait Deviations 1 Step length - decreased Quality of Gait 1 toe out bilaterally Ambulation Comments 1 10 meter walk- 12 seconds RUE Assessment RUE Assessment WFL LUE Assessment LUE Assessment WFL RLE Assessment RLE Assessment WFL LLE Assessment LLE Assessment WFL Basic Mobility - 6 Click How much difficulty does the patient have: Turning over in bed 4 How much difficulty does the patient currently have: Sitting down and standing up from a chair witharms? 4 How much difficulty does the patient have: Moving from lying on back to sitting on the side of the bed? 4 How much difficulty does the patient have: Moving to and from a bed to a chair including wheelchair? 4 How much help does the patient currently need: Walk in hospital room? 4 How much help from another person does the patient currently need: Climbing 3-5 steps with a railing? 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 These deficits prevent full participation in home and community ambulation. Plan Plan Plan of care initiated;If this is the last note, consider this the discharge summary Recommendation/Plan PT Recommendation/Plan Home with intermittent assist PT Frequency during current admission Daily Treatment/Interventions during current admission Balance Training;Gait training PT - Next Appointment 05/16/24 PT Evaluation Complete Yes Time Calculation Start Time 1117 Stop Time 1142 Time Calculation (min) 25 min Multi-Disciplinary Problems (from Physical Therapy) Active Problems Problem: PT Misc Start Date: 05/15/24 Goal Start Date Expected End Date End Date PT STG - Patient will score a 50/56 on the Romeo balance test 05/15/24 05/22/24 -- documented in this encounter H&P Notes * Roseanna Aburto MD - 05/15/2024 10:55 AM CDT Neurosurgery Preoperative Note Surgeon: Dr. Herrera Diagnosis: C/f NPH Procedure: LD OR date: 05/15/24 Labs: BMP Lab Results Component Value Date SODIUM 138 02/28/2024 POTASSIUM 4.3 02/28/2024 CO2 27 02/28/2024 BUNSER 18 02/28/2024 GLUCOSE 99 02/28/2024 CREATININE 1.28 (H) 02/28/2024 CALCIUM 9.5 02/28/2024 CHLORIDE 103 02/28/2024 CBC Lab Results Component Value Date WBC 6.2 05/15/2024 HGB 11.1 (L) 05/15/2024 HCT 33.0 (L) 05/15/2024 LABPLAT 195 05/15/2024 NEUTOPHILPCT 73.6 05/15/2024 LYMPHOPCT 12.7 05/15/2024 MONOPCT 7.6 05/15/2024 EOSPCT 4.7 05/15/2024 Coags Lab Results Component Value Date APTT 26 (L) 05/15/2024 INR 1.14 05/15/2024 Type and screen No results found for: ABORH , IDCOOMB UA No results found for: COLORU , CLARITYU , SPECGRAVU , PHURINE , PROTURQL , GLUCOSEUR , KETONESU , BILIRUBINUR , BLOODUR , UROBILINOGEN , NITRITEU , LEUKESTUR , ASCORBICUR VerifyNow No results found for: SALICYLATE , [id number] CXR: pending EKG: pending Patient NPO?: N/A IVF while NPO: N/A Anticoagulation held?: yes Imaging: preoperative MRI reviewed Blood products: N/A Surgery & Blood Consents: paper consent in chart IPAP/CPAP called: N/A Tumor Bank: N/A (This is not a tumor procedure) I have discussed the risks, benefits and indications of the above procedure with the patient and their family. Specifically, we discussed the risks of infection, bleeding, stroke, coma, or . We also discussed the risks of need for additional procedures. They indicated understanding of these risks and agreed to proceed. Roseanna Aburto MD Cosigned by Anand Herrera MD at 05/15/2024 11:33 AM CDT Associated attestation - Anand Herrera MD - 05/15/2024 11:33 AM CDT I have seen and examined the patient on 05/15/24. I agree with the findings and plan of care as discussed with the resident/fellow.. * Roseanna Aburto MD - 05/15/2024 9:47 AM CDT Neurosurgery Admission H&P Patient: Gulshan Johnston CSN: [id number] : 1940 Admission date: 05/15/2024 Admitting attending: Dr. Herrera Chief Complaint: Rule out NPH History of present illness: Gulshan Johnston is a 84 y.o. male not on antiplatelets or anticoagulation with a history of anxiety, asthma, GERD, HLD, SHON who presents with approximately 2 years of memory and thinking problems. These are primarily cognitive in nature.He is being treated with memantine. He also complains of mobility difficulty, The he says this is not significant. Per daughter at bedside, he has been having progressively worsening shuffling gait. He denies any urgency incontinence. Review of systems: A full review of systems was completed and was negative unless otherwise stated in the HPI. Past medical/surgical history: Anxiety Asthma GERD HLD SHON Allergies: Allergies Allergen Reactions Memantine Delusions Increased confusion Other Sneezing Seasonal allergies Medications: HOME MEDICATIONS : albuterol HFA (PROVENTIL HFA,VENTOLIN HFA,PROAIR HFA) 90 [...] spray ibuprofen (ADVIL,MOTRIN) 800 mg tablet omega 2-yvm-yyl-fish oil 360-1,200 mg capsule,delayed release(DR/EC) omeprazole (PriLOSEC) [...] also POA, who can be reached at [phone]. Family history: Reviewed and noncontributory. Physical Examination: Neuro: Opens eyes spontaneously, regards, follows commands Oriented x3 PERRL, EOMI, face symmetric, tongue midline No drift BUE 5/5 BLE 5/5 Sensation grossly intact to light touch Psych: normal mood Constitutional: no acute distress HENT: normocephalic Cardiovascular: normal rate Pulmonary: normal respiratory effort Abdominal: non-distended Musculoskeletal: normal range of motion Imaging and Labs: MRI of the brain without contrast performed on 12/24/2022 demonstrates no significant ventriculomegaly. 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 Labs unremarkable. Assessment and Plan This is a 84 y.o. male who presents with cognitive difficulties and memory problems. On exam, he isneurologically intact. He presents today for lumbar drain trial for workup of normal pressure hydrocephalus. We will plan for lumbar drain placement and neuro IR. We will also plan to send off Alzheimer CSF labs given his cognitive difficulty. We will plan to drain the lumbar drain at approximately7 cc/hour. He will need to work with physical therapy for a pre lumbar drain placement Romeo score, and we will continue to work with physical therapy for the next 3 days. For any questions regarding care of this patient, please page Neurosurgery at [phone]. Roseanna Aburto MD Cosigned by Anand Herrera MD at 05/15/2024 11:33 AM CDT Associated attestation - Anand Herrera MD - 05/15/2024 11:33 AM CDT I have seen and examined the patient on 05/15/24. I agree with the findings and plan of care as discussed with the resident/fellow.. documented in this encounter Procedure Notes * Roseanna Aburto MD - 05/15/2024 3:56 PM CDT Neurosurgery Lumbar Drain Placement Attending surgeon: Dr. Herrera Resident surgeon: Roseanna Aburto MD Location of procedure: [facility] Preoperative diagnosis: c/f NPH Postoperative diagnosis: c/f NPH Condition prior to procedure: stable Condition after procedure: stable Estimated blood loss: minimal Specimen/tissue removed: none Name of procedure: Lumbar drain placement Brief history: Gulshan Johnston is a 84 y.o. male who presents for NPH LD trial. Consent was obtained after a full discussion of the risks and benefits of the procedure with the patient and their family. Prior to the procedure, the patient's labs were verified as being within normal limits, specifically with an INR of less than 1.4 and a platelet count greater than 100. The patient received 2g of ancef prior to the procedure. A timeout was performed verifying the patient's name, date of , and allergies. Description of procedure/operative findings: The patient was positioned in the lateral decubitus position with their knees tucked up to the chest. The lower back was prepped and draped in the usual fashion. Lidocaine was injected for local anesthesia. Next a 14-gauge Touhy needle was inserted between the spinous processes at the level of L2-3. The needle was successfully entered into the thecal sac with good CSF flow. The needle was then rotated 90 degrees so that the bevel of the needle faced upwards toward the patient's head. The lumbardrain catheter was then passed into the thecal sac through the needle. The Touhy needle was carefully removed, and CSF flow through the lumbar drain was again confirmed. Next the drain tubing was connected to the end of the lumbar drain, and the connection was secured with a silk suture. The lumbardrain was taped in a retention loop to the patient's back using sterile Tegaderm dressings and the lumbar drain was hung with goal output of 7 mL per hour. At the end of the procedure all sharps wereaccounted for and properly disposed of. The patient tolerated the procedure well and there were no procedural complications. Cosigned by Anand Herrera MD at 05/15/2024 4:21 PM CDT Associated attestation - Anand Herrera MD - 05/15/2024 4:21 PM CDT I was present for the entire procedure. documented in this encounter Nursing Notes * Radha Munoz RN - 05/19/2024 4:23 PM CDT Patient belongings sent with patient - Green L.L Sierra Coat, blue jeans, shirt, brown bealt, green skechers, gold colored wire fram glasses, incontinent products and white ankle socks. * Radha Munoz RN - 05/19/2024 4:20 PM CDT Patient transported to [facility] via [facility], report given to Steven, packet given to commercial driver. * Radha Munoz RN - 05/19/2024 2:36 PM CDT Patient discharge orders received, report called to Angela at [facility] ([phone]). ETA (1500) confirmed with Suazo. documented in this encounter Miscellaneous Notes * Plan of Care - Jessica Thomson RN - 05/19/2024 2:13 PM CDT 05/19/24 1411 Discharge Summary Discharge Disposition retirement facility (short term care) Specify Facility [facility] Contact Number [phone] Discharge Records Chart Copied Recommended Discharge Level of Care retirement facility (short term care) Actual Discharge Level of Care retirement facility (short term care) Does Actual Level of Care Match Care Team Recommendation? Yes Post Acute Care Plan Post Acute Care Facility Yes Referral Status Accepted Accepted Post Acute Care Location and Contact [facility] Accepted Post Acute Care Discharge Additional Assistance Does the patient need discharge transport arranged? Yes Type of Transportation Ambulance/EMS Has discharge transport been arranged? Yes Details of Transportation [facility] ambulance [phone] D/C Transport Anticipated Date 05/19/24 D/C Transport Anticipated Time 1500 Discharge Transportation Communication Mode of transport has been discussed with the patient/family. All are agreeable to the plan and understand their responsibilities to ensure the safe transfer. No further CM/SW intervention is anticipated at this time. Per medical team, patient is medically stable for discharge at this time. Authorization #[id number]. product marketing manager spoke with Rosalina in admissions and patient has been accepted to [facility]. CM spoke with the patient/family(daughter Dominga), medical team and RN in regards to discharge planning and all are agreeable to discharge. Post acute care transfer packet completed and will be sent with patient. RN to call report to: . Orders have been faxed to . Transportation provided by [facility] ambulance [phone], trip #[id number] scheduled for 1530. PCS form completed for ambulance transfer. Patient/family informed patient may require ambulance transport. product marketing manager informed patient/family that even if the patient's insurance benefit includes ambulance transport, it may not cover the full cost of the transportation. The patient may be responsible for any out of pocket cost including mileage beyond the nearest appropriate facility. Patient/family verbalized understanding. Jessica Thomsno RN, Electrical Tester [phone] For emergency needs from 4:31p.m. - 7:59a.m., please call the general supervisor [phone]. For weekend/holiday needs from 8:00a.m. - 4:30p.m., please call the Weekend Lead Atg Developer . * Plan of Care - Jessica Thomson RN - 05/19/2024 2:07 PM CDT 05/19/24 1407 Communications Important Message from Medicare notice given to patient? Yes IM letter completed with patient's daughter Dominga Garner on 05/19/24 1400. Patient/representativewere informed of the planned discharge date, the date the beneficiary's financial liability begins,the beneficiary's appeal rights, and how and when to initiate an appeal. IM letter was placed in the unit???s designated medical record bin to be uploaded into the patient???s chart. A mailed copy ofthe IM letter will be sent to Dominga Garner, [address] [place] [address]. * Plan of Care - Jessica Thomson RN - 05/19/2024 12:57 PM CDT 05/19/24 1256 Referral Accepted Level of Care SNF Facility Name [facility] NPI # [id number] Provider Name/NPI # Dr. Mckeon [id number] Supporting Information for Auth Diagnosis/Code NPH-G91.2, gait abnormality R26.9 Functional Status/Therapy PT;OT * [facility] Note - Jessica Thomson RN - 05/19/2024 8:21 AM CDT Images from the original note were not included. Patient Information: Wound Info Only Active Wound Assessment Active Wound / Pressure injury / Antony / Negative Pressure Wound / Incision None , Vitals Info Only Vital Signs 05/18 08 Most Recent Temp (??C) 36.4 - 37.1 36.5 (97.7) 05/19 440 Pulse 71 - 85 74 05/19 0440 Resp 16 - 18 16 05/19 0440 SpO2 (%) 97 - 100 97 05/19 044 BP 123/50 - 184/72 154/60 05/19 0440 MAP (mmHg) 67 - 101 84 05/19 0440 , I&O Only Intake/Output 05/16/24 07 - 05/17/24 0659 05/17/24 0700 - 05/18/24 0659 05/18/24 07 - 05/19/24 0659 Total Total 9828-3771 5089-0837 2511-8886 Total Intake (ml) -- -- 442 400 -- 842 Output (ml) 593 475 849 35 -- 884 Net (ml) -593 -475 -407 365 -- -42 * [facility]IN Note - Jessica Thomson RN - 05/19/2024 8:20 AM CDT Images from the original note were not included. Patient Information: OT Eval and Treat Last 72 Hours OT Evaluation Row Name 05/17/24 0823 05/16/24 0751 Chart Reviewed Yes -CM -- Session Type Evaluation -CM -- OT Received On 05/17/24 -CM -- Safe Environment Arm band checked;Patient found in supine -CM -- Subjective Agreeable to Therapy -CM -- OT Missed Visit Reason -- Bedrest - Family/Caregiver Present No -CM -- Occupational Therapy-Patient Goal Pt did not state at this time but verbalized agreement to OT planof care -CM -- Precautions CSF drain;Fall risk -CM -- Weight Bearing Restrictions No -CM -- Precaution Handout Issued No -CM -- Precaution Comments Verbally reviewed precautions, pt verbalized understanding and maintained throughout session -CM -- Type of Home House -CM -- Home Layout One level;Performs ADLs on one level -CM -- Home Access Stairs to enter with rails -CM -- Entrance Stairs-Number of Steps 3 -CM -- Bathroom Shower/Tub Tub/shower unit -CM -- Bathroom Toilet Standard -CM -- Bathroom Equipment Shower chair -CM -- Home Mobility Equipment-Available None -CM -- Home Mobility Equipment-Currently Using None -CM -- Additional Comments Pt reports no AD prior to current admission -CM -- Level of [place] Independent with ADLs;Independent functional transfers;Independent with ambulation;Needs assistance with homemaking -CM -- Lives With Alone -CM -- Receives Help From Family [employer]EDSPREAD SEAMER available via [employer] -CM -- Driving No -CM -- ADL Assistance Independent -CM -- Instrumental ADL (IADL) Assistance Needs assistance Pt reports daughters complete IADLs -CM -- Fall within the last 6 months Yes -CM -- Fall within the last 6 months comment Pt endorses 1 fall 2/2 water on floor -CM -- Prior Function Comments Pt reports IND in all ADLs prior to current admission - CM -- ADLS (WDL) X -CM -- Grooming: Where assessed Standing at sink -CM -- Grooming: Level of assistance Minimum Assist -CM -- Grooming: Assistance with Increased time to complete SBA for task, Min A for standing balance -CM -- LE Dressing: Where assessed Edge of bed -CM -- LE Dressing: Level of assistance Minimum Assist -CM -- LE Dressing: Assistance with Increased time to complete;Safety SBA for task, Min A for standing balance -CM -- Toileting: Where assessed Toilet -CM -- Toileting: Level of assistance Minimum Assist -CM -- Toileting: Assistance with Increased time to complete;Safety SBA for task, Min A for standing balance -CM -- Room Mobility: Where assessed bed <> toilet -CM -- Health Management: Equipment Other (Comment) IV pole -CM -- Room Mobility: Level of Assistance Minimum Assist -CM -- Room Mobility comment Min A for balance/safety, VC for sequencing -CM -- Toilet Transfer From Bed -CM -- Toilet Transfer Type To and from -CM -- Toilet Transfer to Standard toilet -CM -- Toilet Transfer Technique Ambulating -CM -- Toilet Transfer: Equipment IV Pole -CM -- Toilet Transfers Minimal assistance -CM -- Toilet Transfers Comments Min A for force production and balance/safety, VC for sequencing -CM -- Pain Assessment 0-10 -CM -- Pain Score 3 -CM -- Pain Location Shoulder -CM -- Pain Interventions Repositioned;Distraction -CM -- Arousal/Alertness Alert;Appropriate responses to stimuli -CM -- Attention Span Attends with cues to redirect -CM -- Memory Decreased short term memory via SBT -CM -- Current communication Appears Intact -CM -- Orientation Oriented to person;Oriented to place -CM -- Following Commands Follows one step commands with repetition -CM -- Safety Judgment Decreased awareness of need for safety -CM -- Awareness of Errors Decreased awareness of errors -CM -- Insight Decreased awareness of deficits -CM -- Problem Solving Assistance required to identify errors made;Assistance required to generate solutions;Assistance required to implement solutions -CM -- Compliance/Behavior Easy to engage -CM -- Perseveration Not present -CM -- Cognitive Tests Yes -CM -- Light Touch WFL -CM -- Numbness/Tingling No -CM -- Motor Planning Appears intact -CM -- Fine Motor WFL -CM -- Serial Opposition WFL -CM -- Hand Preference Right -CM -- Coordination Functional -CM -- Gross Grasp Functional -CM -- RUE Reach WFL -CM -- LUE Reach WFL -CM -- Balance Tests Yes -CM -- Balance Yes -CM -- Static Sitting-Balance Support No upper extremity supported -CM -- Static Sitting-Sitting Surface Bed -CM -- Static Sitting-Level of Assistance Independent -CM -- Dynamic Sitting-Balance Support No upper extremity supported -CM -- Dynamic Sitting-Balance Lateral lean;Forward lean;Reaching for objects Pt completed LBD in sitting -CM -- Dynamic Sitting-Sitting Surface Chair -CM -- Dynamic Sitting-Level of Assistance Close supervision -CM -- Dynamic Sitting-Comments safety -CM -- Static Standing-Balance Support Unilateral upper extremity supported IV pole -CM -- Static Standing-Standing Surface Floor -CM -- Static Standing-Level of Assistance Minimum assistance -CM -- Static Standing-Comment/# of Minutes safety -CM -- Dynamic Standing-Balance Support No upper extremity supported -CM -- Dynamic Standing-Balance Lateral lean;Forward lean;Reaching for objects Pt completed grooming standing at sink -CM -- Dynamic Standing-Standing Surface Floor -CM -- Dynamic Standing-Level of Assistance Minimum assistance -CM -- Dynamic Standing-Comments safety -CM -- Bed Mobility Yes -CM -- Bed Mobility From 1 Supine -CM -- Bed Mobility Type 1 To -CM -- Bed Mobility to 1 Edge of bed -CM -- Level of Assistance 1 Standby Assist -CM -- Bed Mobility Comments 1 SBA for balance/safety, VC for sequencing -CM -- Transfer Yes -CM -- Transfer From 1 Sit -CM -- Transfer Type 1 To and from -CM -- Transfer to 1 Stand -CM -- Technique 1 Sit to stand;Stand to sit -CM -- Transfer Device 1 IV pole -CM -- Transfer Level of Assistance 1 Minimum Assist -CM -- Trials/Comments 1 Min A for force production and initial balance/safety, VC for sequencing -CM -- RUE Assessment WFL -CM -- LUE Assessment WFL -CM -- Comments Pt educated on plan of care and d/c recommendations, pt verbalized understanding and agreement. Pt educated on strategies to promote IND in self care, pt verbalized understanding but required cues throughout session for implementation. Pt required frequent cues for redirection, orientation fluctuations observed within 5minute span, benefits from reorientation. -CM -- Putting on and taking off regular lower body clothing 3 -CM -- Bathing 3 -CM -- Toileting 3 -CM -- Putting on and taking off upper body clothing 3 -CM -- Personal Grooming 3 -CM -- Eating Meals 4 -CM -- Total Score (range 6-24) 19 -CM -- Score Interpretation 40.22 -CM -- Safe Environment End of Therapy Session Patient left in recliner;Call light within reach;Overbed table within reach Sitter present throughout session -CM -- Problem List Decreased safe judgment during ADL;Decreased cognition;Decreased endurance;Decreased balance;Decreased functional mobility;Decreased ADL independence;Decreased IADL independence;Poor/Decreased functional positioning - CM -- Barriers to Discharge Current Mobility Status;Current ADL Status;Decreased caregiver support;Cognition;Decreased safety awareness -CM -- Barrier Comments Fall Risk -CM -- Plan Plan of care initiated;If this is the last note, consider this the discharge summary -CM -- OT Recommendation [facility] Facility -CM -- Patient at high risk for Readmission;Falls;Injury due to decreased ability to care for self;Injury due to reduced functional status;Injury due to impaired cognition;Injury due to balance deficits;Injury at home as patient has not returned to prior level of function -CM -- Recommend SNF due to Risk of injury at home;Unable to safely care for self in the home;Skilled therapy needed to address care for self in the home;Skilled therapy needed to address functional deficits -CM -- OT Frequency during current admission 2-3x/wk -CM -- Treatment/Interventions during current admission ADL/IADL retraining;Balance Training;Bed mobility;Compensatory technique education;Endurance training;Functional activity;Functional mobility training;Functional transfer training;Strengthening;Therapeutic activity;Therapeutic exercise;Transfer traini ng -CM -- OT - Next Appointment 05/19/24 -CM -- OT - OK to Discharge No -CM -- OT Evaluation Complete Yes -CM -- User Munson (r) = Recorded By, (t) = Taken By, (c) = Cosigned By Initials Name Effective Dates Jody Avila, OT 05/04/24 - CM Sofie Fletcher, OT 04/21/22 - OT Treatment No documentation. OT Notes 05/17/2024 2:04 PM Progress Notes signed by Sofie Fletcher OT , OT Eval and Treat Last Documented OT ASSESSMENT FLOWSHEET LAST DOCUMENTED (most recent) OT Evaluation - 05/19/24439 Cognition Orientation Oriented to person;Oriented to place;Oriented to time OT TREATMENT FLOWSHEET LAST DOCUMENTED (most recent) OT Treatment - 05/19/24439 Cognition Orientation Oriented to person;Oriented to place;Oriented to time OT Notes 05/17/2024 2:04 PM Progress Notes signed by Sofie Fletcher, OT , PT Eval and Treat Last 72 Hours PT Evaluation Row Name 05/15/24 1117 Chart Reviewed Yes -DT Session Type Evaluation -DT Safe Environment Arm band checked;Session completed bedside;Gait belt utilized for all out of bed mobility;Patient found in supine -DT Subjective Agreeable to Therapy -DT Precautions Fall risk -DT Type of Home House -DT Home Layout One level -DT Home Access Stairs to enter with rails -DT Entrance Stairs-Number of Steps 1 -DT Home Mobility Equipment-Available None -DT Home Mobility Equipment-Currently Using None -DT Level of [place] Independent with ADLs;Independent functional transfers;Independent with ambulation -DT Lives With Alone -DT Receives Help From Family party plan sales unit advisor assist -DT Fall within the last 6 months Yes -DT Fall within the last 6 months comment 2 falls- LOB -DT Pain Assessment No/denies pain -DT Arousal/Alertness Alert -DT Orientation Oriented to person;Oriented to place;Oriented to time -DT Light Touch WFL bilateral LEs -DT 1. Sitting to Standing 3 -DT 2. Standing Unsupported 4 -DT 3. Sitting with Back Unsupported but Feet Supported on Floor or on a Stool 4 -DT 4. Standing to Sitting 3 -DT 5. Transfers 3 -DT 6. Standing Unsupported with Eyes Closed 3 -DT 7. Standing Unsupported with Feet Together 3 -DT 8. Reach Forward with Outstretched Arm While Standing 3 -DT 9. Clinical Neuropsychologist Object from Floor from a Standing Position 3 -DT 10. Turning to Look Behind Over Left and Right Shoulders While Standing 4 -DT 11. Turn 360 Degrees 2 -DT 12. Place Alternate Foot on Step or Stool While Standing Unsupported 2 -DT 13. Standing Unsupported One Foot in Front 2 -DT 14. Standing on One Leg 1 -DT Romeo Balance Score 40 -DT Bed Mobility From 1 Supine -DT Bed Mobility Type 1 To -DT Bed Mobility to 1 Edge of bed -DT Level of Assistance 1 Modified Independent -DT Bed Mobility Comments 1 HOB elevated -DT Transfer From 1 Sit -DT Transfer Type 1 To and from -DT Transfer to 1 Stand -DT Technique 1 Sit to stand;Stand to sit -DT Transfer Device 1 No device -DT Transfer Level of Assistance 1 Distant supervision -DT Transfer From 2 Bed;Sit -DT Transfer Type 2 To -DT Transfer to 2 Chair with arms -DT Technique 2 Stand and step -DT Transfer Device 2 No device -DT Transfer Level of Assistance 2 Distant supervision -DT Distance (ft) 1 400 -DT Surface 1 Level tile -DT Device 1 No device -DT Assistance 1 Distant supervision -DT Gait Deviations 1 Step length - decreased -DT Quality of Gait 1 toe out bilaterally -DT Ambulation Comments 1 10 meter walk- 12 seconds -DT RUE Assessment WFL -DT LUE Assessment WFL -DT RLE Assessment WFL -DT LLE Assessment WFL -DT How much difficulty does the patient have: Turning over in bed 4 -DT How much difficulty does the patient currently have: Sitting down and standing up from a chair witharms? 4 -DT How much difficulty does the patient have: Moving from lying on back to sitting on the side of the bed? 4 -DT How much difficulty does the patient have: Moving to and from a bed to a chair including wheelchair? 4 -DT How much help does the patient currently need: Walk in hospital room? 4 -DT How much help from another person does the patient currently need: Climbing 3-5 steps with a railing? 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 These deficits prevent full participation in home and community ambulation. -DT Plan Plan of care initiated;If this is the last note, consider this the discharge summary -DT PT Recommendation/Plan Home with intermittent assist -DT PT Frequency during current admission Daily -DT Treatment/Interventions during current admission Balance Training;Gait training -DT PT Evaluation Complete Yes -DT PT Start Time 1117 -DT PT Stop Time 1142 -DT PT Time Calculation (min) 25 min -DT User Munson (r) = Recorded By, (t) = Taken By, (c) = Cosigned By Initials Name Effective Dates DT Ashley Morris, PT 11/27/21 - PT TREATMENT (Last 168 Hours) PT Treatment Row Name 05/18/24 1358 05/17/24 1116 05/16/24 1023 PT Last Visit Session Type Treatment -LG Treatment -DT Treatment -DT Safe Environment Arm band checked;Patient found in supine;Session completed bedside;Gait belt utilized for all out of bed mobility -LG Arm band checked;Patient found sitting in chair;Session completed bedside;Gait belt utilized for all out of bed mobility -DT Arm band checked;Patient found in supine;Session completed bedside;Gait belt utilized for all out of bed mobility -DT Subjective Agreeable to Therapy -LG Agreeable to Therapy -DT Agreeable to Therapy -DT Family/Caregiver Present No -LG -- sitter present in room -DT -- Precautions Precautions CSF drain;Fall risk -LG CSF drain;Fall risk -DT CSF drain;Fall risk -DT Pain Assessment Pain Assessment No/denies pain -LG No/denies pain -DT -- reported back and neck pain, did not rate -DT Cognition Arousal/Alertness Alert -LG Alert -DT -- Orientation Oriented to person -LG Oriented to person;Oriented to place;Oriented to time month only-DT Oriented to person;Oriented to place;Oriented to time -DT Following Commands Follows one step commands without difficulty -LG -- -- Balance Tests Balance Tests Yes -LG -- -- Rmoeo Balance Scale 1. Sitting to Standing 1 -LG 1 -DT 1 -DT 2. Standing Unsupported 0 -LG 1 -DT 1 -DT 3. Sitting with Back Unsupported but Feet Supported on Floor or on a Stool 3 -LG 4 -DT 4 -DT 4. Standing to Sitting 0 -LG 3 -DT 3 -DT 5. Transfers 1 -LG 1 -DT 1 -DT 6. Standing Unsupported with Eyes Closed 0 -LG 0 -DT 0 -DT 7. Standing Unsupported with Feet Together 0 -LG 0 -DT 0 -DT 8. Reach Forward with Outstretched Arm While Standing 0 -LG 0 -DT 0 -DT 9. Clinical Neuropsychologist Object from Floor from a Standing Position 0 -LG 0 -DT 0 -DT 10. Turning to Look Behind Over Left and Right Shoulders While Standing 0 -LG 0 -DT 0 -DT 11. Turn 360 Degrees 0 -LG 0 -DT 0 -DT 12. Place Alternate Foot on Step or Stool While Standing Unsupported 0 -LG 0 -DT 0 -DT 13. Standing Unsupported One Foot in Front 0 -LG 0 -DT 0 -DT 14. Standing on One Leg 0 -LG 0 -DT 0 -DT Romeo Balance Score 5 -LG 10 -DT 10 -DT Balance Balance Yes -LG -- -- Static Sitting Balance Static Sitting-Balance Support No upper extremity supported;Feet supported -LG -- -- Static Sitting-Sitting Surface Bed -LG -- -- Static Sitting-Level of Assistance Close supervision -LG Independent -DT -- Static Standing Balance Static Standing-Balance Support No upper extremity supported -LG -- -- Static Standing-Standing Surface Floor -LG -- -- Static Standing-Level of Assistance Minimum assistance -LG Minimum assistance - DT -- Bed Mobility Bed Mobility Yes -LG -- -- Bed Mobility 1 Bed Mobility From 1 Supine -LG -- Supine -DT Bed Mobility Type 1 To -LG -- To -DT Bed Mobility to 1 Edge of bed -LG -- Edge of bed -DT Level of Assistance 1 Moderate Assist -LG -- Modified Independent -DT Bed Mobility Comments 1 assist with elevation of trunk -LG -- HOB elevated -DT Transfers Transfer Yes -LG -- -- Transfer 1 Transfer From 1 Sit -LG Sit -DT Sit -DT Transfer Type 1 To and from -LG To and from -DT To and from -DT Transfer to 1 Stand -LG Stand -DT Stand -DT Technique 1 Sit to stand;Stand to sit -LG Sit to stand;Stand to sit -DT Sit to stand;Stand to sit -DT Transfer Device 1 No device -LG No device -DT No device -DT Transfer Level of Assistance 1 Minimum Assist -LG Minimum Assist -DT Minimum Assist -DT Trials/Comments 1 decreased force production, decreased balance -LG assist with balance -DT assist with balance -DT Transfers 2 Transfer From 2 -- -- Bed;Sit -DT Transfer Type 2 -- -- To -DT Transfer to 2 -- -- Chair with arms -DT Technique 2 -- -- Stand and step -DT Transfer Device 2 -- -- Hand held assist -DT Transfer Level of Assistance 2 -- -- Minimum Assist -DT Trials/Comments 2 -- -- assist with balance -DT Ambulation Ambulation Yes -LG -- -- Ambulation 1 Distance (ft) 1 15 -LG 25 -DT 25 -DT Surface 1 Level tile -LG Level tile -DT Level tile -DT Device 1 Hand held assist x2 -LG IV pole;Hand held assist -DT IV pole -DT Assistance 1 Moderate Assist -LG Minimum Assist -DT Minimum Assist -DT Gait: Requires assist with 1 Maintaining balance -LG Maintaining balance -DT -- Gait: Requires verbal cues to 1 Improve upright posture;Increase step length;Pace activity;Utilize appropriate gait sequencing -LG Utilize appropriate gait sequencing;Improve upright posture;Increasestep length -DT -- Gait Deviations 1 Base of support - decreased;Shuffling;Turns - difficulty;Step length - decreased -LG Base of support - decreased;Shuffling;Step length - decreased;Turns - difficulty -DT Shuffling;Step length - decreased;Turns - difficulty -DT Quality of Gait 1 -- decreased knee extension -DT assist with balance -DT Ambulation Comments 1 Gait speed not performed due to distance ambulated -LG -- -- Stairs Stairs No -LG -- -- Basic Mobility - 6 Click How much difficulty does the patient have: Turning over in bed 2 -LG 4 -DT 4 -DT How much difficulty does the patient currently have: Sitting down and standing up from a chair witharms? 3 -LG 3 -DT 3 -DT How much difficulty does the patient have: Moving from lying on back to sitting on the side of the bed? 2 -LG 4 -DT 4 -DT How much difficulty does the patient have: Moving to and from a bed to a chair including wheelchair? 2 -LG 3 -DT 3 -DT How much help does the patient currently need: Walk in hospital room? 2 -LG 3 - DT 3 -DT How much help from another person does the patient currently need: Climbing 3-5 steps with a railing? 1 -LG 3 -DT 3 -DT Total 6 Click Score (range 6-24) 12 -LG 20 -DT 20 -DT Score Interpretation 32.23 -LG 43.99 -DT 43.99 -DT Safe Environment End of Therapy Session Safe Environment End of Therapy Session Patient left in recliner;Chair alarm in place and activated;Call light within reach -LG Patient left in recliner;Chair alarm in place and activated;RN notified;Call light within reach -DT Patient left in recliner;Chair alarm in place and activated;RN notified;Call light within reach sitter present in room -DT Plan Plan If this is the last note, consider this the discharge summary;Continue with current plan -LG Continue with current plan;If this is the last note, consider this the discharge summary -DT Alter current plan;If this is the last note, consider this the discharge summary -DT Recommendation/Plan PT Recommendation/Plan [facility] -LG [facility] Facility -DT [facility] Facility -DT Patient at high risk for Falls;Injury due to reduced functional status;Injury due to balance deficits -LG Falls;Readmission;Injury due to reduced functional status;Injury due to balance deficits -DT Falls;Readmission;Injury due to reduced functional status;Injury due to balance deficits -DT Recommend Inpatient Rehab/Acute Rehab due to Ability to actively participate in intensive therapy 3hours/day, 5 days/week or 900 minutes per week;Impaired ability to complete functional mobility;Requires greater than 25% physical assistance with most mobility tasks;Requires multiple therapy disciplines to address functional deficits;Requires skilled therapy interventions to address neurological deficits -LG -- -- Recommend SNF due to -- Risk of injury at home;Unable to safely care for self in the home;Skilled therapy needed to address functional deficits;Skilled therapy needed for patient to return to prior level of independence -DT Risk of injury at home;Unable to safely care for self in the home;Skilled therapy needed to address functional deficits;Skilled therapy needed for patient to return to prior level of independence -DT PT Frequency during current admission Daily -LG Daily -DT Daily -DT Progress during current admission No functional improvements -LG -- -- PT Time Calculation PT Start Time 1058 -LG 1116 -DT 1023 -DT PT Stop Time 1112 -LG 1139 -DT 1038 -DT PT Time Calculation (min) 14 min -LG 23 min -DT 15 min -DT User Munson (r) = Recorded By, (t) = Taken By, (c) = Cosigned By Initials Name Effective Dates DT Ashley Morris, PT 11/27/21 - LG Becca De Dios, PT 04/10/19 - PT Notes 05/17/2024 1:13 PM Progress Notes signed by Ashley Morris, PT 05/18/2024 3:11 PM Progress Notes signed by Becca De Dios, PT , PT Eval and Treat Last Documented OT ASSESSMENT FLOWSHEET LAST DOCUMENTED (most recent) PT Evaluation - 05/19/24439 Cognition Orientation Oriented to person;Oriented to place;Oriented to time PT TREATMENT (most recent) PT Treatment - 05/19/24439 Cognition Orientation Oriented to person;Oriented to place;Oriented to time PT Notes 05/17/2024 1:13 PM Progress Notes signed by Ashley Morris, PT 05/18/2024 3:11 PM Progress Notes signed by Becca De Dios, PT * [facility] Note - Jessica Thomson RN - 05/19/2024 8:20 AM CDT Patient Information: Meds and Admin Active Only All Meds/Most Recent Administrations ondansetron (ZOFRAN) injection 4 mg [[id number]] Ordering Provider: Sienna Aguilera NP Status: Verified Ordered On: 05/15/24951 Start: 05/15/24948 Ordered Dose (Remaining/Total): 4 mg (--/--) Route: intravenous Frequency: Every 6 hours PRN Ordered Rate/Order Duration: -- / 2 Minutes Admin Instructions: Proceed to trimethobenzamide if no relief within 30 minutes. (No admins scheduled or recorded for this medication) trimethobenzamide (TIGAN) injection 200 mg [[id number]] Ordering Provider: Sienna Aguilera NP Status: Verified Ordered On: 05/15/24951 Start: 05/15/24948 Ordered Dose (Remaining/Total): 200 mg (--/--) Route: intramuscular Frequency: Every 6 hours PRN Ordered Rate/Order Duration: -- / -- Admin Instructions: If not relieved by ondansetron within 30 minutes. (No admins scheduled or recorded for this medication) docusate sodium (COLACE) capsule 100 mg [[id number]] Ordering Provider: Sienna Aguilera NP Status: Dispensed Ordered On: 05/15/24951 Start: 05/15/241029 Ordered Dose (Remaining/Total): 100 mg (--/--) Route: oral Frequency: 2 times daily Ordered Rate/Order Duration: -- / -- Admin Instructions: If able to swallow capsules. Hold for diarrhea. Timestamps Action Dose Route Other Information 05/18/24908 Given 100 mg oral Performed by: Radha Munoz RN Scanned Package: [id number] docusate (COLACE) 10 mg/mL oral liquid 100 mg [[id number]] Ordering Provider: Sienna Aguilera NP Status: Verified Ordered On: 05/15/24951 Start: 05/15/24 103 Ordered Dose (Remaining/Total): 100 mg (--/--) Route: feeding tube Frequency: 2 times daily Ordered Rate/Order Duration: -- / -- Admin Instructions: If able to receive medications per tube. Hold for diarrhea. (No admins scheduled or recorded for this medication) senna (SENOKOT) tablet 1 tablet [[id number]] Ordering Provider: Sienna Aguilera NP Status: Dispensed Ordered On: 05/15/24951 Start: 05/15/24 103 Ordered Dose (Remaining/Total): 1 tablet (--/--) Route: oral Frequency: 2 times daily Ordered Rate/Order Duration: -- / -- Admin Instructions: If able to swallow tablets. Hold for diarrhea. Timestamps Action Dose Route Other Information 05/18/24 09 Given 1 tablet oral Performed by: Radha Munoz RN Scanned Package: [id number] senna 1.76 mg/mL syrup 8.8 mg [[id number]] Ordering Provider: Sienna Aguilera NP Status: Verified Ordered On: 05/15/24951 Start: 05/15/24 103 Ordered Dose (Remaining/Total): 8.8 mg (--/--) Route: feeding tube Frequency: 2 times daily Ordered Rate/Order Duration: -- / -- Admin Instructions: If able to receive medications per tube. Hold for diarrhea. (No admins scheduled or recorded for this medication) sodium chloride 0.9% flush 0.5-20 mL [[id number]] Ordering Provider: Sienna Aguilera NP Status: Verified Ordered On: 05/15/24951 Start: 05/15/24 1400 Ordered Dose (Remaining/Total): 0.5-20 mL (--/--) Route: intra-catheter Frequency: Every 8 hours scheduled Ordered Rate/Order Duration: -- / -- Admin Instructions: Flush volume based on line type and size. Timestamps Action Dose Route Other Information 05/19/24551 Given 10 mL intra-catheter Performed by: Chelsey Sesay RN sodium chloride 0.9% flush 0.5-20 mL [[id number]] Ordering Provider: Sienna Aguilera NP Status: Verified Ordered On: 05/15/24951 Start: 05/15/24949 Ordered Dose (Remaining/Total): 0.5-20 mL (--/--) Route: intra-catheter Frequency: As needed Ordered Rate/Order Duration: -- / -- Admin Instructions: Flush volume based on line type and size. Flush before and after each use. Timestamps Action Dose Route Other Information 05/17/24821 Given 10 mL intra-catheter Performed by: Alee Raya requested from: Merlyn Butt NP Scanned Package: [id number] Carrier Fluids for Secondary Infusion - 0.9% Sodium Chloride [[id number]] Ordering Provider: Sienna Aguilera NP Status: Verified Ordered On: 05/15/24951 Start: 05/15/24949 Ordered Dose (Remaining/Total): 30 mL (--/--) Route: intravenous Frequency: As needed Ordered Rate/Order Duration: -- / -- Admin Instructions: 0-250 ml/hr to flush line after IV infusions when no maintenance IV ordered. Infuse 30mL at the same rate as the secondary infusion. Run as primary IV, not intended for KVO. (No admins scheduled or recorded for this medication) acetaminophen (TYLENOL) tablet 650 mg [[id number]] Ordering Provider: Sienna Aguilera NP Status: Dispensed Ordered On: 05/15/24951 Start: 05/15/24950 Ordered Dose (Remaining/Total): 650 mg (--/--) Route: oral Frequency: Every 4 hours PRN Ordered Rate/Order Duration: -- / -- Timestamps Action Dose Route Other Information 05/19/24 0134 Given 650 mg oral Performed by: Chelsey Sesay RN Scanned Package: 4628-2184-45, 8165-0966-59 atorvastatin (LIPITOR) tablet 20 mg [[id number]] Ordering Provider: Sienna Aguilera NP Status: Dispensed Ordered On: 05/15/24955 Start: 05/16/24 09 Ordered Dose (Remaining/Total): 20 mg (--/--) Route: oral Frequency: Daily Ordered Rate/Order Duration: -- / -- Timestamps Action Dose Route Other Information 05/18/24908 Given 20 mg oral Performed by: Radha Munoz RN Scanned Package: 79221-797-94, 86129-949-33 donepeziL (ARICEPT) tablet 10 mg [[id number]] Ordering Provider: Sienna Aguilera NP Status: Dispensed Ordered On: 05/15/24955 Start: 05/15/24 2100 Ordered Dose (Remaining/Total): 10 mg (--/--) Route: oral Frequency: Nightly Ordered Rate/Order Duration: -- / -- Timestamps Action Dose Route Other Information 05/18/242012 Given 10 mg oral Performed by: Chelsey Sesay RN Scanned Package: 3205-5748-09 escitalopram (LEXAPRO) tablet 10 mg [[id number]] Ordering Provider: Sienna Aguilera NP Status: Dispensed Ordered On: 05/15/24955 Start: 05/16/24899 Ordered Dose (Remaining/Total): 10 mg (--/--) Route: oral Frequency: Daily Ordered Rate/Order Duration: -- / -- Timestamps Action Dose Route Other Information 05/18/24909 Given 10 mg oral Performed by: Radha Munoz RN Scanned Package: [id number] tamsulosin (FLOMAX) extended release capsule 0.4 mg [[id number]] Ordering Provider: Sienna Aguilera NP Status: Dispensed Ordered On: 05/15/24 1045 Start: 05/16/24 09 Ordered Dose (Remaining/Total): 0.4 mg (--/--) Route: oral Frequency: Daily Ordered Rate/Order Duration: -- / -- Admin Instructions: Do not crush, chew, cut, dissolve, open or otherwise manipulate tablet/capsule. Timestamps Action Dose Route Other Information 05/18/24 0909 Given 0.4 mg oral Performed by: Radha Munoz RN Scanned Package: [id number] finasteride (PROSCAR) tablet 5 mg [[id number]] Ordering Provider: Sienna Aguilera NP Status: Dispensed Ordered On: 05/15/24 1045 Start: 05/16/24 0900 Ordered Dose (Remaining/Total): 5 mg (--/--) Route: oral Frequency: Daily Ordered Rate/Order Duration: -- / -- Admin Instructions: Do not crush, break, or open. Timestamps Action Dose Route Other Information 05/18/24 0910 Given 5 mg oral Performed by: Radha Munoz RN Scanned Package: 51273-336-62 fluticasone propionate (FLONASE) 50 mcg/actuation nasal spray 1 spray [[id number]] Ordering Provider: Sienna Aguilera NP Status: Dispensed Ordered On: 05/15/24 1124 Start: 05/15/24 1200 Ordered Dose (Remaining/Total): 1 spray (--/--) Route: each nostril Frequency: 2 times daily Ordered Rate/Order Duration: -- / -- Timestamps Action Dose Route Other Information 05/18/242014 Given 1 spray each nostril Performed by: Chelsey Sesay RN Scanned Package: [address]-1 hydrALAZINE (APRESOLINE) injection 10 mg [[id number]] Ordering Provider: Roseanna Aburto MD Status: Completed (Past End Date/Time) Ordered On: 05/15/24 1719 Starts/Ends: 05/15/24 1800 - 05/15/24 1758 Ordered Dose (Remaining/Total): 10 mg (0/1) Route: intravenous Frequency: Once Ordered Rate/Order Duration: -- / 2 Minutes Admin Instructions: Administer over 2 minutes Note to pharmacy: Start with 10 mg. May repeat dose in 30 minutes if BP goal not achieved. If BP goal not achieved after 2nd dose, proceed to 20 mg dose.Use the last effective dose if subsequent doses are needed. Line Med Link Info Comment Peripheral IV 05/15/24 20 G Left Forearm 05/15/241755 by Radha Munoz RN -- Timestamps Action Dose / Duration Route Other Information 05/15/241755 Given 10 mg 2 Minutes intravenous Performed by: Radha Munoz RN Scanned Package: 25357-695-39 enoxaparin (LOVENOX) syringe 30 mg [[id number]] Ordering Provider: Chris Rubin MD PhD Status: Dispensed Ordered On: 05/16/24622 Start: 05/16/24 2100 Ordered Dose (Remaining/Total): 30 mg (--/--) Route: subcutaneous Frequency: Daily (for enoxaparin) Ordered Rate/Order Duration: -- / -- Timestamps Action Dose Route / Site Other Information 05/18/242012 Given 30 mg subcutaneous Left Lower Abdomen Performed by: Chelsey Sesay RN Scanned Package: 28058-029-17 fluticasone furoate-vilanteroL (BREO ELLIPTA) 100-25 mcg/dose inhaler 1 puff [[id number]] Ordering Provider: Anand Herrera MD Status: Verified Ordered On: 05/17/24 100 Start: 05/18/24 0900 Ordered Dose (Remaining/Total): 1 puff (--/--) Route: inhalation Frequency: Daily Ordered Rate/Order Duration: -- / -- Admin Instructions: Rinse mouth with water after use. Do not swallow. Note to pharmacy: RN TO ADMINISTER (No admins scheduled or recorded for this medication) ramelteon (ROZEREM) tablet 8 mg [[id number]] Ordering Provider: Chris Rubin MD PhD Status: Dispensed Ordered On: 05/17/241932 Start: 05/17/241932 Ordered Dose (Remaining/Total): 8 mg (--/--) Route: oral Frequency: Nightly PRN Ordered Rate/Order Duration: -- / -- Timestamps Action Dose Route Other Information 05/18/242013 Given 8 mg oral Performed by: Chelsey Sesay RN Scanned Package: [id number] * [facility] Note - Jessica Thomson RN - 05/19/2024 8:20 AM CDT Images from the original note were not included. Patient Information: Comprehensive Nursing Documentation Attending Provider: Anand Herrera MD Allergies: Memantine, Other Isolation: None Infection: None Code Status: FULL Ht: 177.8 cm (5' 10 ) Wt: 70.5 kg (155 lb 8 oz) Admission Cmt: None Principal Problem: NPH (normal pressure hydrocephalus) (HCC) [G91.2] Elopement Risk Date/Time Risk/Reason for Elopement User 05/15/24 1029 No risk KRW Intake/Output 05/16/24 0700 - 05/17/24 0659 05/17/24 0700 - 05/18/24 0659 05/18/24 0700 - 05/19/24 0659 Total Total 1001-2240 1859-4174 0740-5658 Total Intake (ml) -- -- 442 400 -- 842 Output (ml) 593 475 849 35 -- 884 Net (ml) -593 -475 -407 365 -- -42 Patient Lines/Drains/Airways Status Active Airway / Central venous catheter / Drain / Epidural cathether / Intraosseous line / Peripherally inserted central catheter / Peripheral intravenous line / Arterial line Name Placement date Placement time Site Days External Urinary Device 05/16/24 2205 -- 2 Peripheral IV 05/18/24 22 G Posterior;Right Hand 05/18/24 0217 Hand 1 Active Wound Assessment Active Wound / Pressure injury / Antony / Negative Pressure Wound / Incision None Hernandez Fall Risk Flowsheet Row Most Recent Value Prior Fall Event (Autopopulated from EMR) None found ............filed at 05/18/20242011 History of Falling 25 ............filed at 05/18/2024 2012 Secondary Diagnosis 15 ............filed at 05/18/2024 2012 Ambulatory Aids 0 ............filed at 05/18/20242011 Intravenous Therapy/Heparin/Saline Lock 20 ............filed at 05/18/2024 2012 Gait/Transferring 10 ............filed at 05/18/2024 2012 Mental Status 15 ............filed at 05/18/2024 2012 Hernandez Fall Risk Score 85 ............filed at 05/18/2024 2012 Vital Signs 05/18 0700 05/19 0659 05/19 0700 05/19 0820 Most Recent Temp (??C) 36.4 - 37.1 36.5 (97.7) 05/19 440 Pulse 71 - 85 74 05/19 440 Resp 16 - 18 16 05/19 440 SpO2 (%) 97 - 100 97 05/19 440 BP 123/50 - 184/72 154/60 05/19 440 MAP (mmHg) 67 - 101 84 05/19 044 Default Flowsheet Data (most recent) Endurance Tests No documentation. Default Flowsheet Data (most recent) Balance Tests - 05/17/24 0823 Tinetti Sitting Balance 1 Arises 1 Attempts to Arise 1 Immediate Standing Balance (First 5 Seconds) 1 Standing Balance 1 Nudged 1 Eyes Closed 1 Turned 360 Degrees: Steadiness 1 Turned 360 Degrees: Continuity of Steps 0 Sitting Down 1 Balance Score 9 Nursing Nutrition Feeding Level of Assistance 05/18 1600 Able to feed self;Needs set up 05/18 1241 Needs assist 05/18 0929 Needs assist 05/17 0830 Able to feed self 05/16 1005 Able to feed self Appetite 05/18 1600 Good 05/17 0830 Good 05/16 1005 Good Nursing Mobility Activity 05/19 0700 Resting in bed 05/19 0600 Resting in bed 05/19 0500 Resting in bed 05/19 0400 Resting in bed 05/19 0300 Resting in bed 05/19 0200 Resting in bed 05/19 0100 Resting in bed 05/19 0000 Resting in bed 05/18 2300 Resting in bed 05/18 2200 Resting in bed 05/18 2100 Resting in bed 05/18 2000 Resting in bed 05/18 1900 Resting in bed 05/18 1800 Chair 05/18 1700 Chair 05/18 1600 Chair 05/18 1500 Chair 05/18 1400 Chair 05/18 1300 Chair 05/18 1200 Chair 05/18 1100 Chair 05/18 1000 Sleeping 05/18 0900 Being fed 05/18 0800 Resting in bed 05/18 0700 Resting in bed 05/18 0600 Resting in bed 05/18 0500 Resting in bed 05/18 0300 Sleeping 05/18 0200 Resting in bed 05/18 0100 Resting in bed 05/18 0000 Resting in bed 05/17 2300 Resting in bed 05/17 2200 Resting in bed 05/17 2100 Resting in bed 05/17 2000 Resting in bed 05/17 1900 Resting in bed 05/17 1500 Resting in bed;Sleeping 05/17 1300 Chair 05/17 1203 Chair 05/17 1139 Ambulate in room;Chair 05/17 1100 Chair 05/17 1000 Chair 05/17 0925 Chair;Ambulate in room 05/17 0900 Chair 05/17 0800 Resting in bed 05/17 0700 Resting in bed 05/17 0500 Resting in bed 05/17 0400 Resting in bed 05/17 0300 Resting in bed 05/17 0200 Resting in bed 05/17 0000 Resting in bed 05/16 2300 Resting in bed 05/16 2200 Resting in bed 05/16 2100 Resting in bed 05/16 2000 Resting in bed 05/16 1905 Resting in bed 05/16 1700 Resting in bed 05/16 1600 Resting in bed 05/16 1500 Resting in bed 05/16 1400 Resting in bed 05/16 1300 Resting in bed 05/16 1100 Chair 05/16 0900 Chair Patient Repositioned 05/19 0511 Turn self 05/19 0358 Turn self 05/19 0124 Turn self 05/18 2350 Turn self 05/18 2114 Turn self 05/18 1939 Pillow support;Turn self 05/18 1500 Turn self 05/18 1400 Turn self 05/18 1300 Turn self 05/18 1200 Turn self 05/18 1100 Turn self 05/18 1000 Turn self 05/18 0900 Turn self 05/18 0800 Turn self 05/18 0700 Turn self 05/18 0528 Turn self 05/18 0314 Turn self 05/18 0112 Turn self 05/17 2200 Pillow support;Turn self 05/17 2104 Pillow support 05/17 2000 Pillow support 05/17 0925 Pillow support 05/17 0900 Turn self 05/17 0800 Turn self 05/17 0700 Turn self 05/17 0500 Turn self 05/17 0400 Turn self 05/17 0300 Turn self 05/17 0200 Turn self 05/17 0000 Turn self 05/16 2300 Turn self 05/16 2200 Turn self 05/16 2100 Turn self 05/16 2000 Turn self 05/16 1905 Turn self Bed Position 05/18 1500 HOB 30 05/18 1400 HOB 30 05/18 1300 HOB 30 05/18 1200 HOB 30 05/18 1100 HOB 30 05/18 1000 HOB 30 05/18 0900 HOB 30 05/18 0800 HOB 30 05/18 0700 HOB 30 05/17 2200 HOB < 20 05/17 2000 HOB < 20 05/17 0900 HOB 45 05/17 0800 HOB 45 05/17 0700 HOB < 20 05/17 0500 HOB < 20 05/17 0400 HOB 30 05/17 0300 HOB 30 05/17 0200 HOB 30 05/17 0000 HOB 30 05/16 2300 HOB 30 05/16 2200 HOB 30 05/16 2100 HOB 30 05/16 2000 HOB 30 05/16 1905 HOB 30 Heels/Feet 05/18 1500 Heels elevated off bed 05/18 1400 Heels elevated off bed 05/18 1300 Heels elevated off bed 05/18 1200 Heels elevated off bed 05/18 1100 Heels elevated off bed 05/18 1000 Heels elevated off bed 05/18 0900 Heels elevated off bed 05/18 0800 Heels elevated off bed 05/18 0700 Heels elevated off bed 05/17 0900 Heels elevated off bed 05/17 0800 Heels elevated off bed 05/17 0700 Heels elevated off bed 05/17 0500 Heels elevated off bed 05/17 0300 Heels elevated off bed 05/16 2300 Heels elevated off bed 05/16 2100 Heels elevated off bed 05/16 1905 Heels elevated off bed Range of Motion 05/18 2012 Active;All extremities 05/18 1500 Active;All extremities 05/18 1400 Active;All extremities 05/18 1300 Active;All extremities 05/18 1200 Active;All extremities 05/18 1100 Active;All extremities 05/18 1000 Active;All extremities 05/18 0900 Active;All extremities 05/18 0800 Active;All extremities 05/18 0700 Active;All extremities 05/17 1949 Active;All extremities 05/17 0800 Active;All extremities 05/16 2005 Active;All extremities Type of Device 05/17 0700 Mechanical compression 05/17 0500 Mechanical compression 05/17 0300 Mechanical compression 05/17 0100 Mechanical compression 05/16 230 Mechanical compression 05/16 2100 Mechanical compression 05/16 190 Mechanical compression Mechanical Compression Site 05/18 1939 Bilateral 05/17 1947 Bilateral 05/17 0700 Bilateral 05/17 0500 Bilateral 05/17 0300 Bilateral 05/17 0100 Bilateral 05/16 2300 Bilateral 05/16 2100 Bilateral 05/16 190 Bilateral Mechanical Compression Type 05/18 1939 IPC/SCD 05/17 1947 IPC/SCD 05/17 0800 IPC/SCD 05/17 0700 IPC/SCD 05/17 0500 IPC/SCD 05/17 0300 IPC/SCD 05/17 0100 IPC/SCD 05/16 2300 IPC/SCD 05/16 2100 IPC/SCD 05/16 190 IPC/SCD Mechanical Compression Status 05/18 1939 Refused 05/17 1947 On 05/17 0800 On 05/17 0700 On 05/17 0500 On 05/17 0300 On 05/17 0100 On 05/16 2300 On 05/16 2100 On 05/16 190 On Default Flowsheet Data (Last 24 Hours) Sitter Documentation Row Name 05/19/24 0700 05/19/24 0600 05/19/24 0500 RN Oversight of Sitter Sitter Continued Continued Continued Sitter Type Medical/Safety Medical/Safety Medical/Safety RN Safety Check No unsafe behaviors observed, safe environment maintained No unsafe behaviors observed, safe environment maintained No unsafe behaviors observed, safe environment maintained Row Name 05/19/24 0400 05/19/24 0300 05/19/24 0200 RN Oversight of Sitter Sitter Continued Continued Continued Sitter Type Medical/Safety Medical/Safety Medical/Safety RN Safety Check No unsafe behaviors observed, safe environment maintained No unsafe behaviors observed, safe environment maintained No unsafe behaviors observed, safe environment maintained Row Name 05/19/24 0100 05/19/24 0000 05/18/24 2300 RN Oversight of Sitter Sitter Continued Continued Continued Sitter Type Medical/Safety Medical/Safety Medical/Safety RN Safety Check No unsafe behaviors observed, safe environment maintained No unsafe behaviors observed, safe environment maintained No unsafe behaviors observed, safe environment maintained Row Name 05/18/24 2200 05/18/24 2100 05/18/24 2000 RN Oversight of Sitter Sitter Continued Continued Continued Sitter Type Medical/Safety Medical/Safety Medical/Safety RN Safety Check No unsafe behaviors observed, safe environment maintained No unsafe behaviors observed, safe environment maintained No unsafe behaviors observed, safe environment maintained Row Name 05/18/24 1900 05/18/24 1800 05/18/24 1700 RN Oversight of Sitter Sitter Continued Continued Continued Sitter Type Medical/Safety Medical/Safety Medical/Safety RN Safety Check No unsafe behaviors observed, safe environment maintained No unsafe behaviors observed, safe environment maintained No unsafe behaviors observed, safe environment maintained Row Name 05/18/24 1600 05/18/24 1500 05/18/24 1400 RN Oversight of Sitter Sitter Continued Continued Continued Sitter Type Medical/Safety Medical/Safety Medical/Safety RN Safety Check No unsafe behaviors observed, safe environment maintained No unsafe behaviors observed, safe environment maintained No unsafe behaviors observed, safe environment maintained Row Name 05/18/24 1300 05/18/24 1200 05/18/24 1100 RN Oversight of Sitter Sitter Continued Continued Continued Sitter Type Medical/Safety Medical/Safety Medical/Safety RN Safety Check No unsafe behaviors observed, safe environment maintained No unsafe behaviors observed, safe environment maintained No unsafe behaviors observed, safe environment maintained Row Name 05/18/24 1000 05/18/24 0900 RN Oversight of Sitter Sitter Continued Continued Sitter Type Medical/Safety Medical/Safety RN Safety Check No unsafe behaviors observed, safe environment maintained No unsafe behaviors observed, safe environment maintained , Head to Toe Assess Default Flowsheet Data (most recent) Complex Assessment - 05/19/24 0511 Sleep Documentation Estimated # of hours slept for this Shift 1 , Assessment Last Documented Shift Assessment last documented Flowsheet Row Most Recent Value Psychosocial Assessment Facial Expression Appropriate filed at 05/18/2024 0700 Affect Calm filed at 05/18/2024 0700 Mood Content filed at 05/18/2024 07 Eye Contact Fair filed at 05/18/2024 07 Exhibited Behavior Calm filed at 05/18/2024 07 Interaction Minimal filed at 05/18/2024 0700 Motor Activity WDL filed at 05/18/2024 0700 Appearance/Hygiene Appropriate/neat/clean filed at 05/18/2024 07 History of Kimberly No filed at 05/18/2024 0700 History of Violence/Physical Aggression No filed at 05/18/2024 0700 Patient Reported Depression and Anxiety Thought Content Orientation and Intellectual Functioning Language and Speech Sleep Aggressive Behavior Suicidal, Homicidal, and Self Harm Assessment Currently suicidal? No filed at 05/18/2024 0700 Safety * Plan of Care - Chelsey Sesay RN - 05/18/2024 7:45 PM CDT Goals: Clinical Goals for the Shift: VSS, neuro assessments, prevent injuries, promote comfort and safety Shop Supervisor Patient Centered Goal for Treatment: (Return home with less shuffling gait.) Summary: Problem: Discharge Planning Goal: Understanding discharge needs will improve Outcome: Progressing Problem: Fall Risk Goal: Ability [...] health care needs will improve Outcome: Progressing Problem: Skin Integrity Impairment Risk Goal: Mobility will improve Outcome: Progressing Goal: Understanding of ways to prevent future skin breakdown will improve Outcome: Progressing Goal: Nutritional status will improve Outcome: Progressing Goal: Risk for impaired skin integrity will decrease Outcome: Progressing * Plan of Care - Radha Munzo RN - 05/18/2024 1:49 PM CDT Goals: Clinical Goals for the Shift: VSS, neuro assessments, prevent injuries, promote comfort and safety Shop Supervisor Patient Centered Goal for Treatment: (Return home with less shuffling gait.) Problem: Discharge Planning Goal: Understanding discharge needs will improve Outcome: Progressing Problem: Fall Risk Goal: Ability [...] health care needs will improve Outcome: Progressing Problem: Skin Integrity Impairment Risk Goal: Mobility will improve Outcome: Progressing Goal: Understanding of ways to prevent future skin breakdown will improve Outcome: Progressing Goal: Nutritional status will improve Outcome: Progressing Goal: Risk for impaired skin integrity will decrease Outcome: Progressing * Plan of Care - Leonora Middleton RN - 05/18/2024 9:49 AM CDT 05/18/24 0948 Discharge Planning Support System Children Anticipated discharge level of care retirement facility (short term care) Post Acute Care Plan Home Care Services N/A OP Services N/A DME N/A Post Acute Care Facility Yes Per Medical Chart/Rounds/DCAM: medically ready ADD: 05/19( depending if Auth approved and accepting facilities) Plan & referrals made/in place: Lead Atg Developer noted patient has been recommended for SNF by PT/OT. product marketing manager met with the patient/family( daughter- Dominga via phone) at bedside to discuss recommendations by therapy and to work on a potential discharge disposition plan. Lead Atg Developer provided education to patient/family on half-way facilities and the rehabilitation process. Patient reported he was interested in short term SNF placement for rehabilitation. product marketing manager [place] ( [place] [id number])of SNF to patient and family. Dominga states she will be at hospital around 1600 today to orange picker machine operator list and also request that email copy to [email or web address] email list . Dominga states that pt lives alone and that plan after SNF will be making arrangements for family to stay with pt vs assisted living( Dominga has meeting with assisted living next week ). MD team updated . Pt currently has sitter and once family reaches decision regarding SNF preference, sitter will need to be DC prior to SNF referral sent. MD team aware Support following discharge: children Transportation: family if appropriate vs EMS Patient's Identified Problem/Goal Problem: Ensure acute medical needs are met and that patient has a safe discharge plan. Goal: Secure a discharge plan that patient/family are agreeable with and ensure patient has continuum of care. Patient and/or family are agreeable with plan. product marketing manager will continue to follow and assist with discharge planning as needed. If any further discharge needs arise, please contact the covering showcase maker. * Plan of Care - Chelsey Sesay RN - 05/17/2024 9:05 PM CDT Goals: Clinical Goals for the Shift: VSS, neuro assessments, prevent injuries, promote comfort and safety Senior Care Patient Centered Goal for Treatment: (Return home with less shuffling gait.) Summary: Problem: Discharge Planning Goal: Understanding discharge needs will improve Outcome: Not Progressing Problem: Skin Integrity Impairment Risk Goal: Understanding of ways to prevent future skin breakdown will improve Outcome: Not Progressing Problem: Fall Risk Goal: Ability to [...] health care needs will improve Outcome: Progressing Problem: Skin Integrity Impairment Risk Goal: Mobility will improve Outcome: Progressing Goal: Nutritional status will improve Outcome: Progressing Goal: Risk for impaired skin integrity will decrease Outcome: Progressing * Plan of Care - Bettye Azul RN - 05/17/2024 3:08 PM CDT PER ROUNDS: so his ROMEO was still really low today so I would say he will get one more tomorrow butthen discharge. He's rec for SNF * Plan of Care - Adore Flores RN - 05/16/2024 9:30 PM CDT Goals: Clinical Goals for the Shift: neuro assessments, vital signs, promote rest and comfort, fall prevention, Q1hr lumbar drain, sitter Shop Supervisor Patient Centered Goal for Treatment: (Return home with less shuffling gait.) Summary: Problem: Discharge Planning Goal: Understanding discharge needs will improve Outcome: Not Progressing Problem: Coping Goal: Ability to cope will improve Outcome: Not Progressing Problem: Health Behavior Goal: Identification of resources available to assist in meeting health care needs will improve Outcome: Not Progressing Problem: Skin Integrity Impairment Risk Goal: Mobility will improve Outcome: Not Progressing Problem: Fall Risk Goal: Ability to [...] the patient's pain levels Outcome: Progressing Problem: Skin Integrity Impairment Risk Goal: Understanding of ways to prevent future skin breakdown will improve Outcome: Progressing Goal: Nutritional status will improve Outcome: Progressing Goal: Risk for impaired skin integrity will decrease Outcome: Progressing * Initial Assessments - Cooper Castañeda RN - 05/16/2024 11:36 AM CDT CM Initial Assessment Interview Note Information Obtained From: Patient (10/29/24 1132) Admission Source: home Impression: 84 y/o male here with hydrocephalus Plan Includes: possible shunt Primary Source of Transportation: Does the patient need discharge transport arranged?: No-family for ride (05/16/24 1135) Health Insurance Coverage: [employer] Medicare Prescription Coverage: yes Pharmacy: [id number] - [place], [place] [facility] [address] [facility] [address] [facility] [address] [facility] - [place], [place] - [address] [facility] [address] [facility] [address] Primary Care Provider: Sohan Rojas MD-verified Prior to Admission: Functional Status: Independent with ADLs Primary Caregiver: Self Support System: Children Home Care Services: No Outpatient Services: No Durable Medical Equipment: None Living Arrangements: Alone Type of Residence: Private residence Steps in home?: Yes, Outside of home, Yes, Inside home Number of steps inside: 3 steps Number of steps outside: 2 steps Medication management: Independent (05/16/241131) Potential discharge needs include: Home Health: None (05/16/241131) OP Services: no Dialysis: no Behavioral Health Services: Behavioral Health Services: No (05/16/241131) Anticipated Level of Care: Anticipated discharge level of care: Private residence Pt/Family agrees with Anticipated Level of Care: Yes (05/16/241131) Patient expects to be Discharged to: Private residence, (05/16/241131) Additional Information: CM met with patient at bedside to complete initial assessment. Verified address, contact info., emergency contact info., insurance coverage, pharmacy, any DME use, current HH use, stairs outside and inside home, living arrangement, if needing a ride home and PCP. Patient's Identified Problem/Goal Problem: Ensure acute medical [...] Collaboration with Patient, Provider, Direct Care Nurse, Principal Technical Specialist, and other members of theHealth Care Team to assure needed interventions completed. 2. Return patient to optimal level of self-care post discharge. 3. Lead Atg Developer will follow for Discharge Planning - interventions as needed 4. Anticipated level of care at discharge 5. Planned Discharge Disposition Cooper Castañeda RN * Plan of Care - Maribel Barboza RN - 05/16/2024 10:48 AM CDT Goals: Clinical Goals for the Shift: neuro assessments, vital signs, promote rest and comfort, fall prevention, Q1 hour lumbar drain, sitter Shop Supervisor Patient Centered Goal for Treatment: (Return home with less shuffling gait.) Summary: Problem: Discharge Planning Goal: Understanding discharge needs will improve Outcome: Not Progressing Problem: Coping Goal: Ability to cope will improve Outcome: Not Progressing Problem: Health Behavior Goal: Identification of resources available to assist in meeting health care needs will improve Outcome: Not Progressing Problem: Skin Integrity Impairment Risk Goal: Mobility will improve Outcome: Not Progressing Problem: Fall Risk Goal: Ability to [...] the patient's pain levels Outcome: Progressing Problem: Skin Integrity Impairment Risk Goal: Understanding of ways to prevent future skin breakdown will improve Outcome: Progressing Goal: Nutritional status will improve Outcome: Progressing Goal: Risk for impaired skin integrity will decrease Outcome: Progressing * Plan of Care - Bari Bledsoe RN - 05/16/2024 2:55 AM CDT Goals: Clinical Goals for the Shift: monitor vitals, neuro check, maintain gait and balance, fall prevention, L drain management, pain management, promote rest, comfort and safety. Shop Supervisor Patient Centered Goal for Treatment: (Return home with less shuffling gait.) Problem: Fall Risk Goal: Will remain free from injury from falls Outcome: Ongoing Problem: Health Behavior Goal: Identification of resources available to assist in meeting health care needs will improve Outcome: Ongoing Problem: Discharge Planning Goal: Understanding discharge needs will improve Outcome: Progressing Problem: Fall Risk Goal: Ability to state ways to decrease the risk of falls will improve Outcome: Progressing Goal: Will remain free from falls Outcome: Progressing Problem: Lack of [...] Ability to cope will improve Outcome: Progressing * Plan of Care - Radha Munoz RN - 05/15/2024 4:57 PM CDT Goals: Problem: Discharge Planning Goal: Understanding discharge needs will improve 05/15/20241656 by Radha Munoz RN Outcome: Progressing 05/15/2024 165 by Radha Munoz RN Outcome: Progressing Problem: Fall Risk Goal: Ability to state ways to decrease the risk of falls will improve 05/15/20241656 by Radha Munoz RN Outcome: Progressing 05/15/2024 1651 by Radha Munoz RN Outcome: Progressing Goal: Will remain free from falls 05/15/2024 165 by Radha Munoz RN Outcome: Progressing 05/15/2024 165 by Radha Munoz RN Outcome: Progressing Goal: Will remain free from injury from falls 05/15/2024 1657 by Radha Munoz RN Outcome: Progressing 05/15/2024 1651 by Radha Munoz RN Outcome: Progressing * Plan of Care - Radha Munoz RN - 05/15/2024 4:51 PM CDT Problem: Discharge Planning Goal: Understanding discharge needs will improve Outcome: Progressing Problem: Fall Risk Goal: Ability to state ways to decrease the risk of falls will improve Outcome: Progressing Goal: Will remain free from falls Outcome: Progressing Goal: Will remain free from injury from falls Outcome: Progressing Goals: Problem: Discharge Planning Goal: Understanding discharge needs will improve Outcome: Progressing Problem: Fall Risk Goal: Ability to state ways to decrease the risk of falls will improve Outcome: Progressing Goal: Will remain free from falls Outcome: Progressing Goal: Will remain free from injury from falls Outcome: Progressing documented in this encounter Plan of Treatment Scheduled Orders Name Type Priority Associated Diagnoses Orde r Schedule ECG 12 lead ECG STAT As needed unt il discontinued starting 05/15/2024 documented as of this encounter Procedures Procedure Name Priority Date/Time Associated Diagnosis Comments EGFR Routine 05/19/2024 1:47 AM CDT CBC WITHOUT DIFFERENTIAL Routine 05/19/2024 1:47 AM CDT BASIC METABOLIC PANEL Routine 05/19/2024 1:47 AM CDT EGFR Routine 05/17/2024 8:55 PM CDT CBC WITHOUT DIFFERENTIAL Routine 05/17/2024 8:55 PM CDT BASIC METABOLIC PANEL Routine 05/17/2024 8:55 PM CDT EGFR Routine 05/16/2024 9:10 PM CDT CBC WITHOUT DIFFERENTIAL Routine 05/16/2024 9:10 PM CDT BASIC METABOLIC PANEL Routine 05/16/2024 9:10 PM CDT URINALYSIS AND REFLEX TO MICROSCOPIC AND CULTURE Routine 05/16/2024 10:07 AM CDT EGFR Timed 05/15/2024 9:10 PM CDT CBC WITHOUT DIFFERENTIAL Routine 05/15/2024 9:10 PM CDT PHOSPHORUS Timed 05/15/2024 9:10 PM CDT MAGNESIUM Timed 05/15/2024 9:10 PM CDT COMPREHENSIVE METABOLIC PANEL Timed 05/15/2024 9:10 PM CDT ALZHEIMER? S DISEASE EVALUATION, CSF Routine 05/15/2024 4:05 PM CDT XR CHEST 1 VIEW IP Routine 05/15/2024 12:17 PM CDT EGFR STAT 05/15/2024 11:05 AM CDT CBC WITHOUT DIFFERENTIAL STAT 05/15/2024 11:05 AM CDT TYPE AND SCREEN STAT 05/15/2024 11:05 AM CDT PHOSPHORUS STAT 05/15/2024 11:05 AM CDT MAGNESIUM STAT 05/15/2024 11:05 AM CDT COMPREHENSIVE METABOLIC PANEL STAT 05/15/2024 11:05 AM CDT ECG 12-LEAD STAT 05/15/2024 10:09 AM CDT documented in this encounter Results * eGFR (05/19/2024 1:47 AM CDT) eGFR [...] CDT 05/19/2024 2:24 AM CDT Sienna Aguilera PUBLIC RELATIONS ACCOUNT SUPERVISOR LAB BLOOD ORDERA BLES Final Result Performing Organization Address City/State/[facility] Co de Phone Number [facility] Department [place] [address] * Basic metabolic panel (05/19/2024 1:47 AM CDT) Sodium 137 135 - 145 mmol/L Potassium, pl 3.8 3.3 - 4.9 mmol/L [facility] Chloride 102 97 - 110 mmol/L [facility] CO2 27 22 - 32 mmol/L [facility] Anion gap 8 2 - 15 mmol/L [facility] BUN 22 6 - 25 mg/dL [facility] Creatinine 0.90 0.80 - 1.30 mg/dL [facility] Glucose 109 70 - 199 mg/dL [facility] Comment: Interpretive Data Fasting glucose >/= [...] 2022. Calcium 9.4 8.5 - 10.3 mg/dL [facility] Blood 05/19/2024 1:47 AM CDT 05/19/2024 2:24 AM CDT Sienna Aguilera NP LAB BLOOD ORDERA BLES Final Result [facility] Department [place] [address] * (ABNORMAL) CBC without differential (05/19/2024 1:47 AM CDT) Pathologist [facility] WBC 9.1 3.8 - 9.9 K/cumm Hgb 12.5(L) 13.0 - 17.5 g/dL [facility] Hct 36.7(L) 38.9 - 50.3 % [facility] Plt 192 150 - 400 K/cumm [facility] MPV 10.0 9.1 - 12.3 fL [facility] RBC 3.89(L) 4.30 - 5.80 M/cumm [facility] MCV 94.3 81.3 - 96.4 fL [facility] MCH 32.1 27.1 - 33.3 pg [facility] MCHC 34.1 32.3 - 35.7 g/dL [facility] RDW CV 12.7 11.1 - 14.9 % [facility] RDW SD 43.8 35.7 - 48.1 fL [facility] NRBC abs 0.00 0.00 - 0.01 K/cumm [facility] Blood 05/19/2024 1:47 AM CDT 05/19/2024 2:24 AM CDT Sienna Aguilera PUBLIC RELATIONS ACCOUNT SUPERVISOR LAB BLOOD ORDERA BLES Final Result [facility] Department [place] [address] * (ABNORMAL) eGFR (05/17/2024 8:55 PM CDT) [...] CDT 05/17/2024 9:56 PM CDT Sienna Aguilera PUBLIC RELATIONS ACCOUNT SUPERVISOR LAB BLOOD ORDERA BLES Final Result Performing Organization Address City/[facility]/ZIP Co de Phone Number [facility] Department [place] [address] * Basic metabolic panel (05/17/2024 8:55 PM CDT) Pathologist [facility] Sodium 139 135 - 145 mmol/L Potassium, pl 4.3 3.3 - 4.9 mmol/L [facility] Chloride 103 97 - 110 mmol/L [facility] CO2 26 22 - 32 mmol/L [facility] Anion gap 10 2 - 15 mmol/L [facility] BUN 24 6 - 25 mg/dL [facility] Creatinine 1.30 0.80 - 1.30 mg/dL [facility] Glucose 125 70 - 199 mg/dL [facility] Comment: Interpretive Data Fasting glucose >/= [...] 2022. Calcium 9.5 8.5 - 10.3 mg/dL [facility] Blood 05/17/2024 8:5 5 PM CDT 05/17/2024 9:56 PM CDT Sienna Aguilera PUBLIC RELATIONS ACCOUNT SUPERVISOR LAB BLOOD ORDERA BLES Final Result Performing Organization Address [facility] Co de Phone Number [facility] Department [place] [address] * (ABNORMAL) CBC without differential (05/17/2024 8:55 PM CDT) Pathologist [facility] WBC 8.9 3.8 - 9.9 K/cumm Hgb 12.0(L) 13.0 - 17.5 g/dL [facility] Hct 35.1(L) 38.9 - 50.3 % [facility] Plt 201 150 - 400 K/cumm [facility] MPV 10.3 9.1 - 12.3 fL [facility] RBC 3.67(L) 4.30 - 5.80 M/cumm [facility] MCV 95.6 81.3 - 96.4 fL [facility] MCH 32.7 27.1 - 33.3 pg [facility] MCHC 34.2 32.3 - 35.7 g/dL [facility] RDW CV 12.8 11.1 - 14.9 % [facility] RDW SD 44.8 35.7 - 48.1 fL [facility] NRBC abs 0.00 0.00 - 0.01 K/cumm [facility] Blood 05/17/2024 8:55 PM CDT 05/17/2024 9:56 PM CDT Sienna Aguilera PUBLIC RELATIONS ACCOUNT SUPERVISOR LAB BLOOD ORDERA BLES Final Result [facility] Department [place] [address] * eGFR (05/16/2024 9:10 PM CDT) [facility] eGFR 72 >=60 mL/min/1. 73 m2 Comment: [...] CDT 05/16/2024 9:25 PM CDT Sienna Aguilera PUBLIC RELATIONS ACCOUNT SUPERVISOR LAB BLOOD ORDERA BLES Final Result [facility] Department [place] [address] * Basic metabolic panel (05/16/2024 9:10 PM CDT) Sodium 140 135 - 145 mmol/L Potassium, pl 3.7 3.3 - 4.9 mmol/L [facility] Chloride 104 97 - 110 mmol/L [facility] CO2 26 22 - 32 mmol/L [facility] Anion gap 10 2 - 15 mmol/L [facility] BUN 25 6 - 25 mg/dL [facility] Creatinine 1.04 0.80 - 1.30 mg/dL [facility] Glucose 121 70 - 199 mg/dL [facility] Comment: Interpretive Data Fasting glucose >/= [...] 2022. Calcium 9.4 8.5 - 10.3 mg/dL [facility] Blood 05/16/2024 9:10 PM CDT 05/16/2024 9:25 PM CDT Sienna Aguilera NP LAB BLOOD ORDERA BLES Final Result [facility] [place] [address] * (ABNORMAL) CBC without differential (05/16/2024 9:10 PM CDT) WBC 6.7 3.8 - 9.9 K/cumm Hgb 11.9(L) 13.0 - 17.5 g/dL [facility] Hct 34.9(L) 38.9 - 50.3 % [facility] Plt 211 150 - 400 K/cumm [facility] MPV 9.7 9.1 - 12.3 fL [facility] RBC 3.66(L) 4.30 - 5.80 M/cumm [facility] MCV 95.4 81.3 - 96.4 fL [facility] MCH 32.5 27.1 - 33.3 pg [facility] MCHC 34.1 32.3 - 35.7 g/dL [facility] RDW CV 12.8 11.1 - 14.9 % [facility] RDW SD 44.4 35.7 - 48.1 fL [facility] NRBC abs 0.00 0.00 - 0.01 K/cumm [facility] Blood 05/16/2024 9:10 PM CDT 05/16/2024 9:25 PM CDT Sienna Aguilera NP LAB BLOOD ORDERA BLES Final Result Performing Organization Address City/[facility]/ZIP Co de Phone Number [facility] Department [place] [address] * Urinalysis reflex to microscopic and culture Urine, bladder (05/16/2024 10:07 AM CDT) Pathologist [facility] Color, ur Straw Yellow Clarity, ur Clear Clear [facility] Specific gravity, ur 1.015 1.003 - 1.030 [facility] pH, urine 7.0 [facility] Comment: Interpretive Data ? Urine pH is affected by diet, medications, systemic acid-base disturbances, and renal tubular function. ??pH may affect urinary stone formation. ??For example, urine pH below 6.0 may help reduce the tendency for calcium phosphate stones and pH greater than 6.0 may reduce the tendency for uric acid stone formation. Source: [facility] [place] Current Interpretive Data was last revised on 2017 Protein, ur ql Negative Negative [facility] Glucose, ur ql Negative Negative [facility] Ketones, ur Negative Negative [facility] Bilirubin, ur Negative Negative [facility] Blood, ur Negative Negative [facility] Urobilinogen, ur <2.0 <2.0 mg/dL [facility] Nitrite, ur Negative Negative [facility] Leukocyte esterase, ur Negative Negative [facility] UA reflex comment Reflex conditions for microscopic UA and culture not met. [facility] Urine, bladder 05/16/2024 10 :07 AM CDT 05/16/2024 10:33 AM CDT Sienna Aguilera NP LAB MICROBIOLOGY - GENERAL ORDERABLES Final Result [facility] Department [place] [address] * (ABNORMAL) eGFR (05/15/2024 9:10 PM CDT) Pathologist [facility] eGFR 59(L) >=60 mL/min/1. 73 m2 Comment: [...] ORDERA BLES Final Result Performing Organization Address City/[facility]/ZIP Co de Phone Number [facility] [place] [address] * Phosphorus (05/15/2024 9:10 PM CDT) Phosphorus, pl 2.8 2.3 - 4.5 mg/dL Blood 05/15/2024 9:10 PM CDT 05/15/2024 10:04 PM CDT Sienna Aguilera PUBLIC RELATIONS ACCOUNT SUPERVISOR LAB BLOOD ORDERA BLES Final Result Performing Organization Address [facility] Co de Phone Number [facility] Department [place] [address] * Magnesium (05/15/2024 9:10 PM CDT) Pathologist [facility] Magnesium 2.2 1.4 - 2.5 mg/dL Blood 05/15/2024 9:10 PM CDT 05/15/2024 10:04 PM CDT Sienna Aguilera PUBLIC RELATIONS ACCOUNT SUPERVISOR LAB BLOOD ORDERA BLES Final Result [facility] Department [place] [address] * Comprehensive metabolic panel (05/15/2024 9:10 PM CDT) Pathologist [facility] Sodium 142 135 - 145 mmol/L Potassium, pl 4.4 3.3 - 4.9 mmol/L [facility] Chloride 105 97 - 110 mmol/L [facility] CO2 28 22 - 32 mmol/L [facility] Anion gap 9 2 - 15 mmol/L [facility] BUN 20 6 - 25 mg/dL [facility] Creatinine 1.23 0.80 - 1.30 mg/dL [facility] Glucose 109 70 - 199 mg/dL [facility] Comment: Interpretive Data Fasting glucose >/= [...] 2022. Calcium 9.6 8.5 - 10.3 mg/dL [facility] Bilirubin, total 0.6 0.1 - 1.2 mg/dL [facility] Protein, pl 6.8 6.5 - 8.5 g/dL [facility] Albumin 4.1 3.5 - 5.0 g/dL [facility] Alk phos 59 40 - 130 Units/L [facility] ALT 26 7 - 55 Units/L [facility] AST 23 10 - 50 Units/L [facility] Blood 05/15/2024 9:10 PM CDT 05/15/2024 10:04 PM CDT Sienna Aguilera PUBLIC RELATIONS ACCOUNT SUPERVISOR LAB BLOOD ORDERA BLES Final Result Performing Organization Address City/[facility]/ZIP Co de Phone Number [facility] Department [place] [address] * (ABNORMAL) CBC without differential (05/15/2024 9:10 PM CDT) [facility] WBC 7.8 3.8 - 9.9 K/cumm Hgb 11.7(L) 13.0 - 17.5 g/dL [facility] Hct 35.0(L) 38.9 - 50.3 % [facility] Plt 220 150 - 400 K/cumm [facility] MPV 10.0 9.1 - 12.3 fL [facility] RBC 3.65(L) 4.30 - 5.80 M/cumm [facility] MCV 95.9 81.3 - 96.4 fL [facility] MCH 32.1 27.1 - 33.3 pg [facility] MCHC 33.4 32.3 - 35.7 g/dL [facility] RDW CV 12.7 11.1 - 14.9 % [facility] RDW SD 44.1 35.7 - 48.1 fL [facility] NRBC abs 0.00 0.00 - 0.01 K/cumm [facility] Blood 05/15/2024 9:10 PM CDT 05/15/2024 10:06 PM CDT Sienna Aguilera PUBLIC RELATIONS ACCOUNT SUPERVISOR LAB BLOOD ORDERA BLES Final Result [facility] Department [place] [address] * Alzheimer???s disease evaluation, CSF (05/15/2024 4:05 PM CDT) AD Interpretation Negative Negative Comment: Interpretive Data A cerebrospinal fluid P-Ewb858 to Abeta42 ratio > 0.028 has been shown in clinical studies to have a positive agreement of 90.9% and a negative agreement of 89.2% with amyloid PET ([place] Food and Drug Administration). An Abeta42 concentration > 2,500 pg/mL, even in the context of P-Peb137 to Abeta42 ratio > 0.028, is not consistent with the presence of amyloid pathology. This test is not intended as a standalone test to diagnose Alzheimer? s disease and the results must be integrated into a comprehensive clinical evaluation. Failure to adhere to collection instructions in the Lab Test Catalog may yield falsely increased p-Glk455 / Abeta42 ratios. [place] Food and Drug Administration. FDA Application for CSF Elecsys test. ?? [cited 2022; Available from: https://www.accessdata.fda.gov/cdrh_docs/reviews/P682324.pdf Alzheimer's & dementia : the journal of [...] ?? [cited October 19, 2023]; Available from: https://biofinder.se/biofinder_cohorts/lxbxdffamwu-nwfiiub-ggysaut/ Amy Giron, Heather J, Chevy E, Barbara [...] on 2023. p-Tau/Abeta42 0.0232 <=0.0280 Ratio [facility] Comment: Interpretive Data A cerebrospinal fluid P-Ifo729 to Abeta42 ratio > 0.028 has been shown in clinical studies to have a positive agreement of 90.9% and a negative agreement of 89.2% with amyloid PET ([place] Food and Drug Administration). An Abeta42 concentration > 2,500 pg/mL, even in the context of P-Zac572 to Abeta42 ratio > 0.028, is not consistent with the presence of amyloid pathology. This test is not intended as a standalone test to diagnose Alzheimer? s disease and the results must be integrated into a comprehensive clinical evaluation. Failure to adhere to collection instructions in the Lab Test Catalog may yield falsely increased p-Yjb184 / Abeta42 ratios. [place] Food and Drug Administration. FDA Application for CSF Elecsys test. ?? [cited 2022; Available from: https://www.accessdata.fda.gov/cdrh_docs/reviews/N686881.pdf Alzheimer's & dementia : the journal of [...] ?? [cited October 19, 2023]; Available from: https://biofinder.se/biofinder_cohorts/pwyyqdfagoj-lcniwkg-rmnzblo/ Amy Giron, Heather J, Chevy E, Barbara [...] the presence of amyloid pathology, as the P-Cec856 to Abeta42 ratio is significantly more accurate in classifying individuals with and without amyloid pathology (Amy et al., 2018; Franca et al., 2018). ??A low Abeta42 concentration in the context of normal P-Aug194 and total tau may be consistent with Alzheimer-related pathological change (Bartolo et al., 2018). An Abeta42 concentration > 2,500 pg/mL, even in the context of P-Qnm479 to Abeta42 ratio > 0.023, is not [...] Elecsys test. ?? [cited 2022; Available from: https://www.accessdata.fda.gov/cdrh_docs/reviews/K200931.pdf Alzheimer's & dementia : the journal of [...] ?? [cited October 19, 2023]; Available from: https://biofinder.se/biofinder_cohorts/luasthnhpkh-qfzqhlk-xggnpue/ Amy O, Heather J, Chevy E, Barbara H, Jean [...] Mainor CARDENAS, Declan BARRERA, Dontrell C, Joel Leung, Damien M, et al. Cerebrospinal fluid biomarkers measured by Elecsys assays compared to amyloid imaging. Alzheimer's & dementia : the journal of the Alzheimer's Association 2018; 14(11): 1460-9. Current Interpretive Data was last revised on 2023. Phospho-Tau(181P) 18.4 <=40.9 pg/mL [facility] Comment: Interpretive Data The cerebrospinal fluid P-Fel308 concentration alone should not be used to assess for the presence of neurofibrillary tangle pathology, as studies have found that P- Fnp991 is more strongly associated with amyloid pathology than neurofibrillary tangle pathology (Zoie??johanna et al., 2022). A low Abeta42 concentration in the context of normal P-Nmx938 and total tau may be consistent with [...] Elecsys test. ?? [cited 2022; Available from: https://www.accessdata.fda.gov/cdrh_docs/reviews/L425877.pdf Alzheimer's & dementia : the journal of the Alzheimer's Association 2018; 14(11): 1470-81. Bartolo PECK Jr., Cyrus RODARTE, Rogelio Moreno, Leighton TAVAREZ, Daniella Hughes, Coleen MASSEY, et al. MICHAEL-AA Zoie??johanna NR, Diogenes B, Linsey Y, Declan BARRERA, Duane Y, Rajni K, et al. CSF tau phosphorylation occupancies at T217 and T205 represent improved biomarkers of amyloid and tau pathology in Alzheimer? s disease. Nature Aging 2022. Cognitively healthy elderly. ?? [cited October 19, 2023]; Available from: https://biofinder.se/biofinder_cohorts/lmvasgmsqok-lhhdwal-xlzcpap/ Amy Giorn, Heather J, Chevy E, Barbara H, Jean [...] Abeta42 concentration in the context of normal P-Pnw322 and total tau may be consistent with [...] Elecsys test. ?? [cited 2022; Available from: https://www.accessdata.fda.gov/cdrh_docs/reviews/Y329648.pdf Alzheimer's & dementia : the journal of [...] ?? [cited October 19, 2023]; Available from: https://biofinder.se/biofinder_cohorts/ipyzwrgxsor-foceulj-cpddfrq/ Amy O, Heather J, Chevy E, Barbara H, Jean Claude JQ, Alisa T, et al. CSF biomarkers of Alzheimer's disease concord with amyloid-beta PET and predict clinical progression: A study of fully automated immunoassays in BioFINDER and ADNI cohorts. Research Framework: Toward a biological definition of Alzheimer's disease. Alzheimer's & dementia : the journal of the Alzheimer's Association 2018; 14(4): 535-62. Franca TRIPP, Mainor CARDENAS, Declan BARRERA, Dontrell Tyler, Joel R, Damien M, et al. Cerebrospinal fluid biomarkers measured by Elecsys assays compared to amyloid imaging. Alzheimer's & dementia : the journal of the Alzheimer's Association 2018; 14(11): 1460-9. Current Interpretive Data was last revised on 2023. CSF 05/15/2024 4:05 PM CDT 05/15/2024 4:28 PM CDT us Anand Herrera MD LAB GENETIC TESTING Final R esult [facility] Department [place] [address] * XR chest 1 view (Portable) (05/15/2024 [...] aorta. Electronically signed by: Geoff Stevens M.D. Sienna Aguilera NP IMG XR PROCEDURE S [...] ORDERA BLES Final Result Performing Organization Address City/[facility]/ZIP Co de Phone Number [facility] Department [employer] [place], [place] [id number] * Type and screen (05/15/2024 11:05 AM CDT) Pathologist [facility] Jamia, indirect Negative ABO Rh A Positive [facility] Blood 05/15/2024 11:0 5 AM CDT 05/15/2024 11:32 AM CDT Narrative [facility] - 05/15/2024 12:21 PM CDT Has the patient had Daratumumab or Isatuximab in the past 6 months?->Unknown Sienna Aguilera NP LAB BLOOD BANK T EST ORDERABLES Final Result Performing Organization Address City/[facility]/ZIP Co de Phone Number [facility] [place] [address] * (ABNORMAL) CBC without differential (05/15/2024 11:05 AM CDT) Pathologist [facility] WBC 6.9 3.8 - 9.9 K/cumm Hgb 12.0(L) 13.0 - 17.5 g/dL [facility] Hct 35.6(L) 38.9 - 50.3 % [facility] Plt 196 150 - 400 K/cumm [facility] MPV 10.0 9.1 - 12.3 fL [facility] RBC 3.73(L) 4.30 - 5.80 M/cumm [facility] MCV 95.4 81.3 - 96.4 fL [facility] MCH 32.2 27.1 - 33.3 pg [facility] MCHC 33.7 32.3 - 35.7 g/dL [facility] RDW CV 12.7 11.1 - 14.9 % [facility] RDW SD 44.1 35.7 - 48.1 fL [facility] NRBC abs 0.00 0.00 - 0.01 K/cumm [facility] Blood 05/15/2024 11:0 5 AM CDT 05/15/2024 11:26 AM CDT Sienna Aguilera PUBLIC RELATIONS ACCOUNT SUPERVISOR LAB BLOOD ORDERA BLES Final Result [facility] [place] [address] * Phosphorus (05/15/2024 11:05 AM CDT) Phosphorus, pl 3.3 2.3 - 4.5 mg/dL Blood 05/15/2024 11:0 5 AM CDT 05/15/2024 11:26 AM CDT Sienna Aguilera PUBLIC RELATIONS ACCOUNT SUPERVISOR LAB BLOOD ORDERA BLES Final Result [facility] [place] [address] * Magnesium (05/15/2024 11:05 AM CDT) Magnesium 2.2 1.4 - 2.5 mg/dL Blood 05/15/2024 11:0 5 AM CDT 05/15/2024 11:26 AM CDT Sienna Aguilera NP LAB BLOOD ORDERA BLES Final Result [facility] Department [place] [address] * Comprehensive metabolic panel (05/15/2024 11:05 AM CDT) Sodium 138 135 - 145 mmol/L Potassium, pl 4.0 3.3 - 4.9 mmol/L [facility] Chloride 103 97 - 110 mmol/L [facility] CO2 28 22 - 32 mmol/L [facility] Anion gap 7 2 - 15 mmol/L [facility] BUN 20 6 - 25 mg/dL [facility] Creatinine 1.25 0.80 - 1.30 mg/dL [facility] Glucose 97 70 - 199 mg/dL [facility] Comment: Interpretive Data Fasting glucose >/= [...] 2022. Calcium 9.8 8.5 - 10.3 mg/dL [facility] Bilirubin, total 0.6 0.1 - 1.2 mg/dL [facility] Protein, pl 7.1 6.5 - 8.5 g/dL [facility] Albumin 4.4 3.5 - 5.0 g/dL [facility] Alk phos 63 40 - 130 Units/L [facility] ALT 24 7 - 55 Units/L [facility] AST 22 10 - 50 Units/L [facility] Blood 05/15/2024 11:0 5 AM CDT 05/15/2024 11:26 AM CDT us Sienna Aguilera NP LAB BLOOD ORDERA BLES Final Result [facility] Department [place] [address] * ECG 12 lead (05/15/2024 10:09 AM CDT) Pathologist [facility] Ventricular Rate EKG/Min 66 BPM [facility] Atrial Rate 66 BPM [facility] NM-Interval (MSEC) 166 ms [facility] QRS-Interval (MSEC) 98 ms [facility] QT-Interval (MSEC) 440 ms [facility] QTc 461 ms [facility] R [place] 196 degrees [facility] T [place] 154 degrees [facility] Diagnosis Suspect arm lead reversal, interpretation assumes no reversal Normal sinus rhythm Right superior axis deviation Abnormal ECG When compared with ECG of 31-JAN-2019 10:42, QRS axis Shifted left T wave inversion now evident in Lateral leads Confirmed by SARAH LYONS M.D ([id number]) on 05/15/2024 6:07:23 PM [facility] 05/15/2024 10:0 9 AM CDT 05/15/2024 6:07 PM CDT us Sienna Aguilera NP ECG ORDERABLES Final Result Performing Organization Address [facility] Co de Phone Number [facility] documented in this encounter Visit Diagnoses Diagnosis NPH (normal pressure hydrocephalus) (HCC)- Primary 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 Spinal stenosis of lumbar region documented in this encounter Admitting Diagnoses Diagnosis NPH (normal pressure hydrocephalus) (HCC) Idiopathic normal pressure hydrocephalus (INPH) documented in this encounter Administered Medications Inactive Administered Medications - up to 3 most recent administrations Medication Order MAR Action Action Date Dose Rate Site acetaminophen (TYLENOL) tablet 650 mg 650 mg, oral, Every 4 hours PRN, 1st line for pain, Starting on Wed05/15/24 at 0951, Indications: PainIndications:Pain Given 05/19/2024 1:34 AM CDT 650 mg Given 05/18/2024 8:12 PM CDT 650 mg Given 05/17/2024 7:59 PM CDT 650 mg atorvastatin (LIPITOR) tablet 20 mg 20 mg, oral, Daily, First dose on Wed05/16/24 at 0900 Given 05/19/2024 8:24 AM CDT 20 mg Given 05/18/2024 9:09 AM CDT 20 mg Given 05/17/2024 8:20 AM CDT 20 mg Carrier Fluids for Secondary Infusion - 0.9% Sodium Chloride 30 mL, intravenous, As needed, For priming tubing and/or flushing, Starting on Wed05/15/24 at 0950, 0-250 ml/hr to flush line after IV infusions when no maintenance IV ordered. Infuse 30mL at the same rate as the secondary infusion. Run as primary IV, not intended for KVO. docusate (COLACE) 10 mg/mL oral liquid 100 mg 100 mg, feeding tube, 2 times daily, First dose on Wed05/15/24 at 1030, If able to receive medications per tube. Hold for diarrhea., Indications: constipation, Stool SoftenerIndications:constipation,Stool Softener docusate sodium (COLACE) capsule 100 mg 100 mg, oral, 2 times daily, First dose on Wed05/15/24 at 1030, If able to swallow capsules. Hold for diarrhea., Indications: constipation, Stool SoftenerIndications:constipation,Stool Softener Given 05/19/2024 8:25 AM CDT 100 mg Given 05/18/2024 9:09 AM CDT 100 mg Given 05/16/2024 8:16 AM CDT 100 mg donepeziL (ARICEPT) tablet 10 mg 10 mg, oral, Nightly, First dose on Wed05/15/24 at 2100, Indications: Mild to Moderate Alzheimer's Type DementiaIndications:Mild to Moderate Alzheimer's Type Dementia Given 05/18/2024 8:13 PM CDT 10 mg Given 05/17/2024 8:00 PM CDT 10 mg Given 05/16/2024 8:02 PM CDT 10 mg enoxaparin (LOVENOX) syringe 30 mg 30 mg, subcutaneous, Daily (for enoxaparin), First dose on Wed05/16/24 at 2100, Indications: VTE ProphylaxisIndications:VTE Prophylaxis Given 05/18/2024 8:13 PM CDT 30 mg Left Lower Abdomen Given 05/17/2024 8:00 PM CDT 30 mg Le ft Lower Abdomen Given 05/16/2024 8:02 PM CDT 30 mg Ri ght Lower Abdomen escitalopram (LEXAPRO) tablet 10 mg 10 mg, oral, Daily, First dose on Wed05/16/24 at 0900 Given 05/19/2024 8:25 AM CDT 10 mg Given 05/18/2024 9:10 AM CDT 10 mg Given 05/17/2024 8:20 AM CDT 10 mg finasteride (PROSCAR) tablet 5 mg 5 mg, oral, Daily, First dose on Wed05/16/24 at 0900, Do not crush, break, or open. Given 05/19/2024 8:24 AM CDT 5 mg Given 05/18/2024 9:10 AM CDT 5 mg Given 05/17/2024 8:21 AM CDT 5 mg fluticasone furoate-vilanteroL (BREO ELLIPTA) 100-25 mcg/dose inhaler 1 puff 1 puff, inhalation, Daily, First dose on Wed05/16/24 at 0900, Rinse mouth with water after use. Do not swallow. 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 Do not swallow. Given 05/16/2024 9:14 AM CDT 1 puff fluticasone furoate-vilanteroL (BREO ELLIPTA) 100-25 mcg/dose inhaler 1 puff 1 puff, inhalation, Daily, First dose (after last modification) on Wed05/18/24 at 0900, Rinse mouth with water after use. Do not swallow. fluticasone propionate (FLONASE) 50 mcg/actuation nasal spray 1 spray 1 spray, each nostril, 2 times daily, First dose on Wed05/15/24 at 1200 Given 05/19/2024 8:25 AM CDT 1 spray Given 05/18/2024 8:15 PM CDT 1 spray Given 05/18/2024 9:10 AM CDT 1 spray hydrALAZINE (APRESOLINE) injection 10 mg 10 mg, intravenous, Administer over 2 Minutes, Once, On Wed05/15/24 at 1800, For 1 dose, Administer over 2 minutes, Indications: hypertensionIndications:hypertension Given 05/15/2024 5:56 PM CDT 10 mg ondansetron (ZOFRAN) injection 4 mg 4 mg, intravenous, Administer over 2 Minutes, Every 6 hours PRN, nausea, vomiting, Starting on Wed05/15/24 at 0949, Proceed to trimethobenzamide if no relief within 30 minutes. , Indications: Nausea and VomitingIndications:Nausea and Vomiting ramelteon (ROZEREM) tablet 8 mg 8 mg, oral, Nightly PRN, sleep, Starting on Wed05/17/24 at 1933, Indications: Sleep-Onset InsomniaIndications:Sleep-Onset Insomnia Given 05/18/2024 8:14 PM CDT 8 m g Given 05/17/2024 8:00 PM CDT 8 mg senna (SENOKOT) tablet 1 tablet 1 tablet, oral, 2 times daily, First dose on Wed05/15/24 at 1030, If able to swallow tablets. Hold for diarrhea., Indications: constipationIndications:constipation Given 05/19/2024 8:24 AM CDT 1 table t Given 05/18/2024 9:09 AM CDT 1 tablet Given 05/16/2024 8:16 AM CDT 1 tablet senna 1.76 mg/mL syrup 8.8 mg 8.8 mg, feeding tube, 2 times daily, First dose on Wed05/15/24 at 1030, If able to receive medications per tube. Hold for diarrhea., Indications: constipationIndications:constipation sodium chloride 0.9% flush 0.5-20 mL 0.5-20 mL, intra-catheter, Every 8 hours scheduled, First dose on Wed05/15/24 at 1400, Flush volume based on line type and size. Given 05/19/2024 5:52 AM CDT 10 mL Given 05/18/2024 8:14 PM CDT 10 mL Given 05/18/2024 6:04 AM CDT 10 mL sodium chloride 0.9% flush 0.5-20 mL 0.5-20 mL, intra-catheter, As needed, line care, Starting on Wed05/15/24 at 0950, Flush volume based on line type and size. Flush before and after each use. Given 05/17/2024 8:22 AM CDT 10 mL tamsulosin (FLOMAX) extended release capsule 0.4 mg 0.4 mg, oral, Daily, First dose on Wed05/16/24 at 0900, Do not crush, chew, cut, dissolve, open or otherwise manipulate tablet/capsule. Given 05/19/2024 8:24 AM CDT 0.4 mg Given 05/18/2024 9:09 AM CDT 0.4 mg Given 05/17/2024 8:20 AM CDT 0.4 mg trimethobenzamide (TIGAN) injection 200 mg 200 mg, intramuscular, Every 6 hours PRN, nausea, vomiting, Starting on Wed05/15/24 at 0949, If not relieved by ondansetron within 30 minutes. , Indications: Nausea and VomitingIndications:Nausea and Vomiting documented in this encounter Discontinued Medications Medication Sig Discontinue Reason Start Date End Da te omega [id number] oil 360-1,200 mg capsule,delayed release(DR/EC) Take 1 capsule by mouth daily 03/10/2016 05/19/2024 vitamin E (AQUASOL E) 1,000 unit capsule Take 5 capsules (5,000 Units total) by mouth daily 05/19/[address] (VOLTAREN) 75 mg EC tabletIndications:Dege nerative lumbar spinal stenosis TAKE 1 TABLET BY MOUTH TWICE A DAY 01/25/2024 05/19/2024 ibuprofen (ADVIL,MOTRIN) 800 mg tablet Take 1 tablet (800 mg total) by mouth every 6 (six) hours 12/28/2023 05/19/2024 finasteride (PROSCAR) 5 mg tabletIndications:Pros guillory cancer (HCC) Take 1 tablet (5 mg total) by mouth daily Stop Taking at Discharge 09/23/2022 05/19/2024 documented as of this encounter Active and Recently Administered Medications Times are shown in CDT. Scheduled Medication Order 05/17/2024 05/18/2024 05/19/2024 atorvastatin (LIPITOR) tablet 20 mg 20 mg, oral, Daily, First dose on Wed05/16/24 at 0900 0820 (Given - Provider: Alee Raya) 09 (Given - Provider: Radha Munoz, EAN) 0824 (Given - Provider: Radha Munoz, EAN) docusate (COLACE) 10 mg/mL oral liquid 100 mg(Linked Group 1) 100 mg, feeding tube, 2 times daily, First dose on Wed05/15/24 at 1030, If able to receive medications per tube. Hold for diarrhea., Indications: constipation, Stool Softener 0925 (See Alternative - Provider: Maribel Barboza RN)2000 (See Alternative - Provider: Chelsey Sesay RN) 09 (See Alternative - Provider: Radha Munoz RN)2012 (See Alternative - Provider: Chelsey Sesay RN) 0825 (See Alternative - Provider: Radha Munoz, EAN) docusate sodium (COLACE) capsule 100 mg(Linked Group 1) 100 mg, oral, 2 times daily, First dose on Wed05/15/24 at 1030, If able to swallow capsules. 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 1999 (Given - Provider: Chelsey Sesay RN) 2012 (Given - Provider: Chelsey Sesay RN) enoxaparin (LOVENOX) syringe 30 mg 30 mg, subcutaneous, Daily (for enoxaparin), First dose on Wed05/16/24 at 2100, Indications: VTE Prophylaxis 1999 (Given - Provider: Chelsey Sesay RN) 2012 (Given - Provider: Chelsey Sesay RN) escitalopram (LEXAPRO) tablet 10 mg 10 mg, oral, Daily, First dose on Wed05/16/24 at 0900 0820 (Given - Provider: Alee Raya) 09 (Given - Provider: Radha Munoz, EAN) 0825 (Given - Provider: Radha Munoz, EAN) finasteride (PROSCAR) tablet 5 mg 5 mg, oral, Daily, First dose on Wed05/16/24 at 0900, Do not crush, break, or open. 0821 (Given - Provider: Alee Raya) 0910 (Given - Provider: Radha Munoz, EAN) 0824 (Given - Provider: Radha Munoz RN) fluticasone furoate-vilanteroL (BREO ELLIPTA) 100-25 mcg/dose inhaler 1 puff 1 puff, inhalation, Daily, First dose (after last modification) on Wed05/18/24 at 0900, Rinse mouth with water after use. Do not swallow. 0947 (Not Given - Provider: Radha Munoz RN - Reason: Medication not available) 1108 (Not Given - Provider: Radha Munoz RN - Reason: Medication not available) fluticasone propionate (FLONASE) 50 mcg/actuation nasal spray 1 spray 1 spray, each nostril, 2 times daily, First dose on Wed05/15/24 at 1200 0800 (Given - Provider: Alee Raya)2001 (Given - Provider: Chelsey Sesay RN) 909 (Given - Provider: Radha Munoz, EAN)2014 (Given - Provider: Chelsey Sesay RN) 0825 (Given - Provider: Radha Munoz RN) senna (SENOKOT) tablet 1 tablet(Linked Group 2) 1 tablet, oral, 2 times daily, First dose on Wed05/15/24 at 1030, If able to swallow tablets. Hold for diarrhea., Indications: constipation 924 (Not Given - Provider: Maribel Barboza RN - Reason: Contraindicated)2000 (Not Given - Provider: Chelsey Sesay RN - Reason: Contraindicated) 908 (Given - Provider: Radha Munoz, EAN)2013 (Not Given - Provider: Chelsey Sesay RN - Reason: Contraindicated) 0824 (Given - Provider: Radha Munoz, EAN) senna 1.76 mg/mL syrup 8.8 mg(Linked Group 2) 8.8 mg, feeding tube, 2 times daily, First dose on Wed05/15/24 at 1030, If able to receive medications per tube. Hold for diarrhea., Indications: constipation 924 (See Alternative - Provider: Maribel Barboza RN)2000 (See Alternative - Provider: Chelsey Sesay RN) 908 (See Alternative - Provider: Radha Munoz RN)2013 (See Alternative - Provider: Chelsey Sesay RN) 0824 (See Alternative - Provider: Radha Munoz RN) sodium chloride 0.9% flush 0.5-20 mL 0.5-20 mL, intra-catheter, Every 8 hours scheduled, First dose on Wed05/15/24 at 1400, Flush volume based on line type and size. 0600 (Canceled Entry - Provider: Adore Flores RN)1811 (Not Given - Provider: Maribel Barboza RN - Reason: Other)2000 (Given - Provider: Chelsey Sesay RN) 0604 (Given - Provider: Chelsey Sesay RN)1400 (Due)2013 (Given - Provider: Chelsey Sesay RN) 0552 (Given - Provider: Chelsey Sesay RN)1400 (Due) tamsulosin (FLOMAX) extended release capsule 0.4 mg 0.4 mg, oral, Daily, First dose on Wed05/16/24 at 0900, Do not crush, chew, cut, dissolve, open or otherwise manipulate tablet/capsule. 0820 (Given - Provider: Alee Raya) 09 (Given - Provider: Radha Munoz, EAN) 0824 (Given - Provider: Radha Munoz, EAN) PRN Medication Order 05/17/2024 05/18/2024 05/19/2024 acetaminophen (TYLENOL) tablet 650 mg 650 mg, oral, Every 4 hours PRN, 1st line for pain, Starting on Wed05/15/24 at 0951, Indications: Pain 0306 (Given - Provider: Adore Flores RN)195 (Given - Provider: Chelsey Sesay, EAN) 2011 (Given - Provider: Chelsey Sesay RN) 133 (Given - Provider: Chelsey Sesay RN) Carrier Fluids for Secondary Infusion - 0.9% Sodium Chloride 30 mL, intravenous, As needed, For priming tubing and/or flushing, Starting on Wed05/15/24 at 0950, 0-250 ml/hr to flush line after IV infusions when no maintenance IV ordered. Infuse 30mL at the same rate as the secondary infusion. Run as primary IV, not intended for KVO. ondansetron (ZOFRAN) injection 4 mg 4 mg, intravenous, Administer over 2 Minutes, Every 6 hours PRN, nausea, vomiting, Starting on Wed05/15/24 at 0949, Proceed to trimethobenzamide if no relief within 30 minutes. , Indications: Nausea and Vomiting ramelteon (ROZEREM) tablet 8 mg 8 mg, oral, Nightly PRN, sleep, Starting on Wed05/17/24 at 1933, Indications: Sleep-Onset Insomnia 1999 (Given - Provider: Chelsey Sesay RN) 2013 (Given - Provider: Chelsey Sesay RN) sodium chloride 0.9% flush 0.5-20 mL 0.5-20 mL, intra-catheter, As needed, line care, Starting on Wed05/15/24 at 0950, Flush volume based on line type and size. Flush before and after each use. 08 (Given - Provider: Alee Raya) trimethobenzamide (TIGAN) injection 200 mg 200 mg, intramuscular, Every 6 hours PRN, nausea, vomiting, Starting on Wed05/15/24 at 0949, If not relieved by ondansetron within 30 minutes. , Indications: Nausea and Vomiting Linked Groups Order Group 1: docusate sodium (COLACE) capsule 100 mgJump to med 100 mg, oral, 2 times daily, First dose on Wed05/15/24 at 1030, If able to swallow capsules. Hold for diarrhea., Indications: constipation, Stool Softener Or docusate (COLACE) 10 mg/mL oral liquid 100 mgJump to med 100 mg, feeding tube, 2 times daily, First dose on Wed05/15/24 at 1030, If able to receive medications per tube. Hold for diarrhea., Indications: constipation, Stool Softener Group 2: senna (SENOKOT) tablet 1 tabletJump to med 1 tablet, oral, 2 times daily, First dose on Wed05/15/24 at 1030, If able to swallow tablets. Hold for diarrhea., Indications: constipation Or senna 1.76 mg/mL syrup 8.8 mgJump to med 8.8 mg, feeding tube, 2 times daily, First dose on Wed05/15/24 at 1030, If able to receive medications per tube. Hold for diarrhea., Indications: constipation documented in this encounter Orders Medications Ordered That Tyson ht Not Have Been Administered Count Last Ordered Date First Ordered Date fluticasone furoate-vilanter oL (BREO ELLIPTA) 100-25 mcg/dose inhaler 1 puff 1 05/17/2024 Carrier Fluids for Secondary Infusion - 0.9% Sodium Chloride 1 05/15/2024 docusate (COLACE) 10 mg/mL o ral liquid 100 mg 1 05/15/2024 ondansetron (ZOFRAN) injection 4 mg 1 05/15 senna 1.76 mg/mL syrup 8.8 mg 1 05/15/2024 trimethobenzamide (TIGAN) injection 200 mg 1 05/15/2024 Consult Count Last Ordered Date First Orde red Date AUTHORIZATION FOR POST-ACUTE CARE 1 024 Admission Count Last Ordered Date First Orde red Date ADMIT TO INPATIENT 1 05/15/2024 Discharge Count Last Ordered Date First Orde red Date DISCHARGE PATIENT 1 05/19/2024 CORE MEASURES Count Last Ordered Date First Ord ered Date REASON FOR NO VTE PROPHYLAXI S - HOSPITAL ADMISSION - MEDICATIONS 1 05/15/2024 ADT Patient Update Count Last Ordered Date Firs t Ordered Date PROVIDER TREATMENT TEAM 1 05/15/2024 documented in this encounter Care Teams Warp Spooler Relationship Specialty Start Date End Date Sohan Rojas MD [address] [facility] [address] [place] [address] PCP - General Family Medicine 07/10/22 Lamin Mcgraw MD [address] [facility] [place] [address] Consulting Physician Urology 07/27/22 Manuel Chowdhury MD [address] [facility] [place] [address] Consulting Physician Neurology 01/21/23 [place] [address] [facility] [address] [place] [address] Consulting Physician Neurology 01/21/23 Anand Herrera MD [address] [place] [address] Consulting Physician Neurosurgery 01/26/24 documented as of this encounter
--- OUTSIDE RECORDS SUMMARY | 2024-08-07 02:23 | XMS_ITS | Encounter Summary ---
Author Organization [facility] Healthcare Address [address] [place] [address] Care Team Providers Care Front Load Trash Truck Driver Name Role Phone Sohan Rojas MD Primary Care Provider [phone] Lamin Mcgraw MD Unavailable [phone] Manuel Chowdhury MD Unavailable Shahrzad SONI MD, Carlos M. Unavailable [phone] Anand Herrera MD Unavailable Reason for Referral * Diagnostic Imaging (Routine) - Closed Specialty Diagnoses / Procedures Referred By Daxa londono Referred To Contact Diagnoses NPH (normal pressure hydrocephalus) (HCC) Procedures IR Lumbar Puncture, Diagnostic incl Fluoro Guidance Anand Herrera MD [address] [facility] [address] [place] [address] Phone: tel: fax: [address] [address] Referral ID Status Reason Start Date Expiration Date Visits Re quested Visits Authorized [id number] Closed 03/30/2024 04/29/2025 1 1 Reason for Visit * Auth/Cert (Routine) Specialty Diagnoses / Procedures Referred By Contac t Referred To Contact Diagnoses NPH (normal pressure hydrocephalus) (HCC) Procedures lumbar drain trail Referral ID Status Reason Start Date Expiration Date Visits Re quested Visits Authorized [id number] 1 1 Encounter Details Date Type Department Care Team (Latest Contact Info) Description 05/15/2024 8:25 AM CDT - 05/15/2024 11:59 PM CDT Hospital Encounter [facility] Neuro Interventional Radiology [address] [place] [address] Anand Herrera MD [address] [place] [address] NPH (normal pressure hydrocephalus) ([facility]) Discharge Disposition: Discharge to home or self care Social History Tobacco Use Types Packs/Day Years [...] and Family Twice a week 05/31/2019 Attends [employer] Services Never 05/31 Active Member of Clubs [...] staff should administer the PHQ-9) 0 01/26/2024 [facility] [place] [facility] Occupat ional Health - Occupational Stress [...] on file 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 Gender Identity Male 03/24/2021 7:53 PM CDT Sexual Orientation Straight 03/24/2021 7: 53 PM CDT Occupation Industry Job Start Date Job End Date retired Not on file Not on file Not on file documented as of this encounter Medications at Time of Discharge [...] mg EC tabletIndications :Degenerative lumbar spinal stenosis TAKE 1 TABLET BY MOUTH TWICE A DAY 180 tablet 3 01/25/[address] (VOLTAREN) 75 mg EC [...] 11 07/30/2023 4 finasteride (PROSCAR) 5 mg tabletIndications :Prostate cancer (HCC) Take 1 tablet (5 mg total) by mouth daily 90 tablet 1 09/23/2022 4 finasteride (PROSCAR) 5 mg tablet Take 1 tablet (5 mg total) by mouth daily 05/20/2024 4 fluticasone propionate (FLONASE) 50 mcg/actuation nasal sprayIndications: Acute non-recurrent maxillary sinusitis Administer 2 sprays into each nostril daily 3 each 4 04/15/2022 4 ibuprofen (ADVIL,MOTRIN) 800 mg tablet Take 1 tablet (800 mg total) by mouth every 6 (six) hours 12/28/2023 4 ibuprofen (ADVIL,MOTRIN) 800 mg tablet Take 1 tablet (800 mg total) by mouth every 6 (six) hours HOLD THIS MEDICATION UNTIL YOU FOLLOW UP WITH NEUROSURGERY 05/19/2024 4 omega 7-gjg-crf-fish oil 360-1,200 mg capsule,delayed release(DR/EC) Take 1 capsule by mouth daily 03/10/2016 4 omega 2-mzi-kgh-fish oil 360-1,200 mg capsule,delayed release(DR/EC) Take 1 [...] capsules (5,000 Units total) by mouth daily 4 vitamin E (AQUASOL E) 1,000 unit capsule Take 5 capsules (5,000 Units total) by mouth daily HOLD THIS MEDICATION UNTIL YOU FOLLOW UP WITH NEUROSURGERY 05/19/2024 4 documented as of this encounter Discharge Disposition Disposition Code Departure Means Destination Discharge to home or self care documented in this encounter Miscellaneous Notes * Post-Procedure Note - Andrew Duque DO - 05/15/2024 2:00 PM CDT Radiology Brief Post Procedure Note Attending: Beck Hart MD Tax Accounting Manager: Andrew Duque DO Sedation/Anesthesia: Local Pre-Op/Pre-Procedure Diagnosis: concern for NPH Post-Op/Post-Procedure Diagnosis: same as pre procedure Procedure Performed: Lumbar puncture at L2-3 with lumbar drain placement with neurourgery Procedure Findings: 6.5 ml clear csf sent to lab Complications: None Estimated Blood Loss: None Specimens: 6 mL clear csf Condition: Stable Full report to follow. Andrew Duque DO * Pre-Procedure Note - Andrew Duque DO - 05/15/2024 2:00 PM CDT Neuro spine pre-procedure Note Chief complaint: concern for NPH Have you taken any blood thinners within the last 30 days? Include last dose taken. No PMH: Past Medical History: Diagnosis Date Anxiety Arthritis Asthma Cancer ([facility]) ([facility]) 2017? GERD (gastroesophageal reflux disease) Heart disease Hyperlipidemia Insomnia Osteoporosis Personal history of other diseases of the respiratory system Personal history of asthma - (Added by TW Conv) Rheumatic fever Sleep apnea Diagnosed years ago - not sure if it's still pertinent Sleep difficulties Allergies: Allergies Allergen Reactions Memantine Delusions Increased confusion Other Sneezing Seasonal allergies Meds: No current facility-administered medications for this encounter. No current outpatient medications on file. Facility-Administered Medications Ordered in Other Encounters: acetaminophen (TYLENOL) tablet 650 mg, 650 mg, oral, Q4H PRN, Sienna Aguilera NP [START ON 05/16/2024] atorvastatin (LIPITOR) tablet 20 mg, 20 mg, oral, Daily, Jammie Aguilera NP Carrier Fluids for Secondary Infusion - 0.9% Sodium Chloride, 30 mL, intravenous, PRN, Sienna Aguilera NP docusate sodium (COLACE) capsule 100 mg, 100 mg, oral, BID OR docusate (COLACE) 10 mg/mL oral liquid 100 mg, 100 mg, feeding tube, BID, Sienna Aguilera NP donepeziL (ARICEPT) tablet 10 mg, 10 mg, oral, Nightly, Sienna Aguilera NP [START ON 05/16/2024] escitalopram (LEXAPRO) tablet 10 mg, 10 mg, oral, Daily, Jammie Aguilera NP [START ON 05/16/2024] finasteride (PROSCAR) tablet 5 mg, 5 mg, oral, Daily, Sienna Aguilera NP [START ON 05/16/2024] fluticasone furoate-vilanteroL (BREO ELLIPTA) 100-25 mcg/dose inhaler 1 puff,1 puff, inhalation, Daily, Sienna Aguilera NP fluticasone propionate (FLONASE) 50 mcg/actuation nasal spray 1 spray, 1 spray, each nostril, BID, Sienna Aguilera NP ondansetron (ZOFRAN) injection 4 mg, 4 mg, intravenous, Q6H PRN, Sienna Aguilera NP senna (SENOKOT) tablet 1 tablet, 1 tablet, oral, BID OR senna 1.76 mg/mL syrup 8.8 mg, 8.8 mg, feeding tube, BID, Sienna Aguilera NP sodium chloride 0.9% flush 0.5-20 mL, 0.5-20 mL, intra-catheter, Q8H MICHAELLE, Sienna Aguilera NP sodium chloride 0.9% flush 0.5-20 mL, 0.5-20 mL, intra-catheter, PRN, Sienna Aguilera NP [START ON 05/16/2024] tamsulosin (FLOMAX) extended release capsule 0.4 mg, 0.4 mg, oral, Daily, Sienna Aguilera NP trimethobenzamide (TIGAN) injection 200 mg, 200 mg, intramuscular, Q6H PRN, Sienna Aguilera NP Prior to Admission medications Medication Sig Start Date End Date Taking? Authorizing Provider albuterol HFA (PROVENTIL HFA,VENTOLIN HFA,PROAIR HFA) 90 mcg/actuation inhaler Inhale 2 puffs every4 (four) hours as needed for wheezing 07/27/22 Sohan Rojas MD atorvastatin (LIPITOR) 20 mg tablet TAKE 1 TABLET BY MOUTH EVERY DAY 02/28/24 Sohan Rojas MD Brecarmen Ellipta 100-25 mcg/dose diskus inhaler INHALE 1 PUFF BY MOUTH EVERY DAY 04/28/23 Sohan Rojsa MD cholecalciferol, vitamin D3, 1,000 unit tablet,chewable Yolanda Melo MD cranberry extract 200 mg capsule Take 2 capsules by mouth 3 (three) times a day 03/10/16 Yolanda Melo MD diclofenac DR (VOLTAREN) 75 mg EC tablet TAKE 1 TABLET BY MOUTH TWICE A DAY 01/25/24 Sohan Rojas MD donepeziL (ARICEPT) 10 mg tablet Take 1 tablet (10 mg total) by mouth nightly 07/26/23 07/25/24 Sohan Rojas MD escitalopram (Lexapro) 10 mg tablet Take 1 tablet (10 mg total) by mouth daily 07/30/23 07/29/24 Huber Mg MD finasteride (PROSCAR) 5 mg tablet Take 1 tablet (5 mg total) by mouth daily 09/23/22 07/28/23 Sohan Rojas MD fluticasone propionate (FLONASE) 50 mcg/actuation nasal spray Administer 2 sprays into each nostrildaily 04/15/22 Lamin Ricci MD ibuprofen (ADVIL,MOTRIN) 800 mg tablet Take 1 tablet (800 mg total) by mouth every 6 (six) hours 12/28/23 Yolanda Melo MD omega 7-ykp-xao-fish oil 360-1,200 mg capsule,delayed release(DR/EC) Take 1 capsule by mouth daily 03/10/16 Yolanda Melo MD omeprazole (PriLOSEC) 20 mg capsule TAKE 1 CAPSULE BY MOUTH EVERY DAY 03/02/24 Sohan Rojas MD Sodium Fluoride 5000 Dry Mouth 1.1 % paste 07/23/23 Yolanda Melo MD tamsulosin (FLOMAX) 0.4 mg extended release capsule Take 1 capsule (0.4 mg total) by mouth daily 09/23/22 07/26/23 Sohan Rojas MD traMADoL (ULTRAM) 50 mg tablet TAKE 1 TABLET BY MOUTH EVERY 6 HOURS NEEDED FOR PAIN X 5 DAYS 12/28/23 Yolanda Melo MD triamcinolone (KENALOG) 0.1 % cream PLEASE SEE ATTACHED FOR DETAILED DIRECTIONS Yolanda Melo MD vitamin b complex (Vitamins B Complex) tablet Take 1 tablet by mouth daily Yolanda Melo MD vitamin E (AQUASOL E) 1,000 unit capsule Take 5 capsules (5,000 Units total) by mouth daily Yolanda Melo MD Pertinent physical exam: General Appearance: NAD Lungs-unlabored Heart-Regular rate and rhythm Vitals: There were no vitals filed for this visit. Labs: Recent Labs Lab Units 05/15/24 0831 INR 1.14 Recent Labs Lab Units 05/15/24 1105 05/15/24 0831 PLATELETS K/cumm 196 195 Imaging: MRI lumbar spine 08/31/22 Assessment and Plan: Proceed with lumbar puncture with lumbar drain placement per neurosurgery Andrew Duque DO documented in this encounter Plan of Treatment Not on file documented as of this encounter Procedures Procedure Name Priority Date/Time Associated Diagnosis Comments IR LUMBAR PUNCTURE, DIAGNOSTIC INCL FLUORO GUIDANCE Schedule Routine, Read Routine (OP Routine) 05/15/2024 4:06 PM CDT NPH (normal pressure hydrocephalus) (HCC) documented in this encounter Results * IR Lumbar Puncture, Diagnostic incl Fluoro [...] Herrera MD IM FLUOROSCOPY PROCEDURES Final Result documented in this encounter Visit Diagnoses Diagnosis NPH (normal pressure hydrocephalus) (HCC) Idiopathic normal pressure hydrocephalus (INPH) documented in this encounter Administered Medications Inactive Administered Medications - up to 3 most recent administrations Medication Order MAR Action Action Date Dose Rate Site lidocaine (PF) (XYLOCAINE) 10 mg/mL (1 %) preservative free injection As needed, Starting on Wed05/15/24 at 1606, Intra-Procedure (IR), Indications: Administration of Local AnesthesiaIndications:Administration of Local Anesthesia Given 05/15/2024 4:06 PM CDT 5 mL Back documented in this encounter Orders Medications Ordered That Tyson ht Not Have Been Administered Count Last Ordered Date First Ordered Date lidocaine (PF) (XYLOCAINE) 1 0 mg/mL (1 %) preservative free injection 1 05/15/2024 documented in this encounter Care Teams Front Load Trash Truck Driver Relationship Specialty Start Date End Date Sohan Rojas MD [address] [address] PCP - General Family Medicine 07/10/22 Lamin Mcgraw MD [address] [place] [address] Consulting Physician Urology 07/27/22 Manuel Chowdhury MD [address] [place] [address] Consulting Physician Neurology 01/21/23 [place] [address] [facility] [address] [place] [address] Consulting Physician Neurology 01/21/23 Anand Herrera MD [address] [place], [place] [address] Consulting Physician Neurosurgery 01/26/24 documented as of this encounter
--- OUTSIDE RECORDS SUMMARY | 2024-08-07 02:24 | XMS_ITS | Encounter Summary ---
Author Organization [facility] Healthcare Address [address] [place] [address] Care Team Providers Care Telehealth Coordinator Name Role Phone Sohan Rojas MD Primary Care Provider [phone] Lamin Mcgraw MD Unavailable [phone] Manuel Chowdhury MD Unavailable Shahrzad SONI MD, Carlos M. Unavailable [phone] Encounter Details Date Type Department Care Team (Latest Contact Info) Description 03/12/2023 11:00 AM CDT - 03/12/2023 11:59 PM CDT Hospital Encounter [address] [address] MCI (mild cognitive impairment) Discharge Disposition: Discharge to home or self [...] and Family Twice a week 05/31/2019 Attends Confucianism Services Never 05/31 Active Member of Clubs or Organizations No 05/31/2019 Attends Club or Organization Meetings Never 05/31/2019 Marital Status 05/31/2019 AUDIT-C Answer Date Recorded Q1: How often do you have a drink containing alcohol? Never 03/12/2023 Q2: How many drinks containi ng alcohol do you have on a typical day when you are drinking? Patient does not drink Q3: How often do you have si x or more drinks on one occasion? 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 Gender Identity Male 03/24/2021 7:53 PM CDT Sexual Orientation Straight 03/24/2021 7: 53 PM CDT Occupation Industry Job Start Date Job End Date retired Not on file Not on file Not on file documented as of this encounter Medications at Time of Discharge albuterol HFA (PROVENTIL HFA,VENTOLIN HFA,PROAIR HFA) 90 mcg/actuation inhalerIndications :Bronchospasm Prevention Inhale 2 puffs every 4 (four) hours as needed for wheezing 1 each 3 07/27/2022 4 atorvastatin (LIPITOR) 20 mg tabletIndications: Hypercholesterolem ia Take 1 tablet (20 mg total) by mouth daily 90 tablet 1 09/23/2022 4 cholecalciferol, vitamin D3, 1,000 unit tablet,chewable Take 1 tablet/chew tab by mouth daily 4 cranberry extract 200 mg capsule Take 2 capsules by mouth 3 (three) times a day 03/10/[address] (VOLTAREN) 75 mg EC tabletIndications: Degenerative lumbar spinal stenosis Take 1 tablet (75 mg total) by mouth 2 (two) times a day 180 tablet 3 10/23/2022 4 donepeziL (ARICEPT) 10 mg tabletIndications: Mild to Moderate Alzheimer's Type Dementia Take 1 tablet (10 mg total) by mouth nightly 90 tablet 1 12/03/2022 4 finasteride (PROSCAR) 5 mg tabletIndications: Prostate cancer (HCC) Take 1 tablet (5 mg total) by mouth daily 90 tablet 1 09/23/2022 4 fluticasone furoate-vilanteroL (Breo Ellipta) 100-25 mcg/dose diskus inhalerIndications :Mild intermittent asthma without complication INHALE 1 PUFF BY MOUTH ONCE DAILY 180 each 01/31/2023 3 fluticasone propionate (FLONASE) 50 mcg/actuation nasal sprayIndications:A cute non-recurrent maxillary sinusitis Administer 2 sprays into each nostril daily 3 each 4 04/15/2022 4 lecithin 1,200 mg capsule Take 1 capsule by mouth 2 (two) times a day 4 mometasone 50 mcg/actuation HFA aerosol inhaler Inhale 4 omega 0-zpy-elw-fish oil 360-1,200 mg capsule,delayed release(DR/EC) Take 1 capsule by mouth daily 03/10/2016 4 omeprazole (PriLOSEC) 20 mg capsuleIndications :Gastroesophageal reflux disease without esophagitis Take 1 capsule (20 mg total) by mouth daily 90 capsule 1 09/23/2022 3 peg 400-propylene glycol (SYSTANE) 0.4-0.3 % ophthalmic solution Administer 1 drop into both eyes as needed 4 tamsulosin (FLOMAX) 0.4 mg extended release capsule Take 1 capsule (0.4 mg total) by mouth daily 90 capsule 1 09/23/2022 4 vitamin b complex (Vitamins B Complex) tablet Take 1 tablet by mouth daily 4 vitamin E (AQUASOL E) 1,000 unit capsule Take 5 capsules (5,000 Units total) by mouth daily 4 documented as of this encounter Discharge Disposition Disposition Code Departure Means Destination Discharge to home or self care documented in this encounter Plan of Treatment Not on file documented as of this encounter Procedures Procedure Name Priority Date/Time Associated Diagnosis Comments CELL COUNT W REFLEX DIFFERENTIAL, CSF Routine 03/12/2023 12:30 PM CDT MCI (mild cognitive impairment) CSF PROTEIN Routine 03/12/2023 12:30 PM CDT MCI (mild cognitive impairment) GLUCOSE, CSF Routine 03/12/2023 12:30 PM CDT MCI (mild cognitive impairment) ALZHEIMER? S DISEASE EVALUATION, CSF Routine 03/12/2023 11:00 AM CDT MCI (mild cognitive impairment) documented in this encounter Results * (ABNORMAL) Protein, total, CSF (03/12/2023 12:30 PM CDT) Protein, CSF 76(H) 5 - 45 mg/dL [facility] CSF 03/12/2023 12:3 0 PM CDT 03/12/2023 1:23 PM CDT Sea Markham II, MD LAB BODY FLUIDS AND STOOLS O RDERABLES Final Result [facility] [id number] [place] [address] * (ABNORMAL) Cell count with reflex to differential, CSF (03/12/2023 12:30 PM CDT) Pathologist [facility] Tube Number, CSF Tube 3 CERNER Color, CSF Colorless C[facility]ER CH Clarity, CSF Clear CERNER Nucleated cells, CSF <3 0 - 5 /cumm CERNER CH RBC, CSF <2,000(H) 0 - 0 /cumm CERNER CH CSF 03/12/2023 12:3 0 PM CDT 03/12/2023 1:23 PM CDT Sea Markham II, MD LAB BODY FLUIDS AND STOOLS O RDERABLES Final Result Performing Organization Address [facility] Number [facility] [address] [place] [address] * Glucose, CSF (03/12/2023 12:30 PM CDT) Pathologist [facility] Glucose, CSF 59 mg/dL [facility] Comment: Reference Interval Information: CSF Glucose should be 60-66% of the most current plasma glucose concentration (milligrams/deciliter) CLIN. CHEM. 41/3, 343-360 (1994), Clinical Utility of Biochemical Analysis of Cerebrospinal Fluid, Efrain Miranda and Gagan Chamberlain. Current interpretive data was last revised on 2019. CSF 03/12/2023 12:3 0 PM CDT 03/12/2023 1:23 PM CDT Sea Markham II, MD LAB BODY FLUIDS AND STOOLS O RDERABLES Final Result Performing Organization Address [facility] de Phone Number [facility] [address] [place] [address] * (ABNORMAL) Alzheimer???s disease evaluation, CSF (03/12/2023 11:00 AM CDT) [facility] p-Tau/Abeta42 0.027 <=0.028 [facility] Abeta42 665(L) >834 pg/mL [facility] Comment: ADDITIONAL INFORMATION The testing method is an electrochemiluminescence assay manufactured by [employer] Effective December 16, 2022, a formulation change was implemented in the [employer] Abeta42 reagent (Generation I to Generation II). The Ele[employer]ys B-Amyloid (1-42) CSF II assay was restandardized using certified reference materials (CRMs) ERM-DA480/-481/-482/IF. Internal studies indicate a reduction in measured Abeta42 concentration (an approximate 19% decrease at the reference value) under specified assay collection conditions when using the new reagent formulation. Accordingly, the reference value has been changed from >1026 pg/mL (Gen I) to >834 pg/mL (Gen II). Values obtained with different assay methods or kits may be different and cannot be used interchangeably. Total-TAU 191 <=238 pg/mL [facility] Comment: ADDITIONAL INFORMATION The testing method is an electrochemiluminescence assay manufactured by [employer] Values obtained with different assay methods or kits may be different and cannot be used interchangeably. This test was developed and its performance characteristics determined by [facility] in a manner consistent with CLIA requirements. This test has not been cleared or approved by the U.S. Food and Drug Administration. Phospho-Tau(181P) 17.7 <=21.6 pg/mL [facility] Comment: ADDITIONAL INFORMATION The testing method is an electrochemiluminescence assay manufactured by [employer] Effective December 16, 2022, a formulation change was implemented in the [employer] p-Rth328 reagent (Generation I to Generation II). Internal studies indicate a slight reduction in measured p-Bqr843 concentrations under specified assay collection conditions when using the new reagent formulation. Accordingly, the reference value has been modified from < or = 21.7 pg/mL (Gen I) to < or = 21.6 (Gen II). Values obtained with different assay methods or kits may be different and cannot be used interchangeably. Test Performed by: [facility] [address] [place] [address] Fur Trimmer: Emiliano Sun M.D. Ph.D.; CLIA# [id number] CSF 03/12/2023 11:0 0 AM CDT 03/12/2023 2:58 PM CDT us Sea Markham II, MD LAB GENETIC TESTING Final Re sult [facility] [id number] Department [place] [address] documented in this encounter Visit Diagnoses Diagnosis MCI (mild cognitive impairment) Mild cognitive impairment, so stated documented in this encounter Care Teams Telehealth Coordinator Relationship Specialty Start Date End Date Sohan Rojas MD [address] [place] [address] PCP - General Family Medicine 07/10/22 Lamin Mcgraw MD [address] [place] [address] Consulting Physician Urology 07/27/22 Manuel Chowdhury MD [address] [place] [address] Consulting Physician Neurology 01/21/23 [place] [address] [address] [place] [address] Consulting Physician Neurology 01/21/23 documented as of this encounter
--- OUTSIDE RECORDS SUMMARY | 2024-08-07 02:24 | XMS_ITS | Encounter Summary ---
Author Organization [facility] Healthcare Address [address] [place] [address] Care Team Providers Care Greenhouse Laborer Name Role Phone Sohan Rojas MD Primary Care Provider [phone] Lamin Mcgraw MD Unavailable [phone] Manuel Chowdhury MD Unavailable Shahrzad SONI MD, Carlos M. 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 Patient did not answer. LVM documented in this encounter Plan of Treatment Not on file documented as of this encounter Visit Diagnoses Not on filedocumented in this encounter Care Teams Greenhouse Laborer Relationship Specialty Start Date End Date Sohan Rojas MD [address] [facility] [address] [place] [address] PCP - General Family Medicine 07/10/22 Lamin Mcgraw MD [address] [place] [address] Consulting Physician Urology 07/27/22 Manuel Chowdhury MD [address] [place] [address] Consulting Physician Neurology 01/21/23 [place] [address] [facility] [address] [place] [address] Consulting Physician Neurology 01/21/23 documented as of this encounter
--- OUTSIDE RECORDS SUMMARY | 2024-08-07 02:24 | XMS_ITS | Encounter Summary ---
Author Organization [facility] Address [address] [place] [address] Phone Care Team Providers Care Electrical Wiring Lineman Name Role Phone Sohan Rojas MD Primary Care Provider [phone] Lamin Mcgraw MD Unavailable Manuel Chowdhury MD Unavailable Shahrzad SONI MD, Sea Juarez Unavailable Encounter Details Date Type Department Care Team (Late st Contact Info) Description 08/03/2023 Telephone [facility] Scheduling [address] [place] [address] Janak Lew CMA Social History Tobacco Use Types Packs/Day Years [...] and Family Twice a week 05/31/2019 Attends Temple Services Never 05/31 Active Member of Clubs or Organizations No 05/31/2019 Attends Club or Organization Meetings Never 05/31/2019 Marital Status 05/31/2019 AUDIT-C Answer Date Recorded Q1: How often do you have a drink containing alcohol? Never 07/26/2023 Q2: How many drinks containi ng alcohol do you have on a typical day when you are drinking? Patient does not drink Q3: How often do you have si x or more drinks on one occasion? Never 07/26/2023 Overall Financial Resource Strain (CARDIA) Answe r Date Recorded Difficulty of Paying Living Expenses Not hard at all 05/31/2019 PHQ-2 Answer Date Recorded PHQ-2 Total Score (If total score is 3 or more points, staff should administer the PHQ-9) 0 07/26/2023 [facility] - Occupational [...] on file Legal Sex Male 8:20 PM ICING MAKER Gender Identity Male 03/24/2021 7:53 PM CDT Sexual Orientation Straight 03/24/2021 7: 53 PM CDT Occupation Industry Job Start Date Job End Date retired Not on file Not on file Not on file documented as of this encounter Miscellaneous Notes * Telephone Encounter - Janak Lew CMA - 08/03/2023 12:49 PM CST Appt call. G MAKER documented in this encounter Plan of Treatment Not on file documented as of this encounter Visit Diagnoses Not on filedocumented in this encounter Care Teams Electrical Wiring Lineman Relationship Specialty Start Date End Date Sohan Rojas MD [address] [facility] [address] [place] [address] PCP - General Family Medicine 07/10/22 Lamin Mcgraw MD [address] [place] [address] Consulting Physician Urology 07/27/22 Manuel Chowdhury MD [address] [facility] [place] [address] Consulting Physician Neurology 01/21/23 [place] [address] [address] [facility] [address] [place] [address] Consulting Physician Neurology 01/21/23 documented as of this encounter
--- OUTSIDE RECORDS SUMMARY | 2024-08-07 02:24 | XMS_ITS | Encounter Summary ---
Author Organization [facility] Address [address] [place] [address] Phone Care Team Providers Care Water Reuse Program Manager Name Role Phone Sohan Rojas MD Primary Care Provider Lamin Mcgraw MD Unavailable [phone] Manuel Chowdhury MD Unavailable Shahrzad SONI MD, Sea Juarez Unavailable Encounter Details Date Type Department Care Team (Late st Contact Info) Description 06/21/2023 Telephone [facility] First Floor [address] [place] [address] Bryson Bowling, JACQUARD PLATE MAKER [address] [facility] [address] [place] [address] Social History Tobacco Use Types Packs/Day Years [...] and Family Twice a week 05/31/2019 Attends Yazidism Services Never 05/31 Active Member of Clubs [...] staff should administer the PHQ-9) 0 01/21/2023 [facility] - [...] on file Legal Sex Male 8:20 PM ACCOUNT SERVICES SPECIALIST Gender Identity Male 03/24/2021 7:53 PM CDT Sexual Orientation Straight 03/24/2021 7: 53 PM CDT Occupation Industry Job Start Date Job End Date retired Not on file Not on file Not on file documented as of this encounter Miscellaneous Notes * Telephone Encounter - Bryson Bowling LCSW - 06/21/2023 2:06 PM CST This SW called and spoke with CS. They are doing a lot of things to try to put up alarms and reminders and could really benefit from the dementia navigation of services of [facility]. She was open to the referral and I made it. She will keep my information for further needs. They do have DPOAs for healthand finance. YUMIKO Winston UNT SERVICES SPECIALIST documented in this encounter Plan of Treatment Not on file documented as of this encounter Visit Diagnoses Not on filedocumented in this encounter Care Teams Water Reuse Program Manager Relationship Specialty Start Date End Date Sohan Rojas MD [address] [place] [address] PCP - General Family Medicine 07/10/22 Lamin Mcgraw MD [address] [place] [address] Consulting Physician Urology 07/27/22 Manuel Chowdhury MD [address] [place] [address] Consulting Physician Neurology 01/21/23 [place] [address] [place] [address] Consulting Physician Neurology 01/21/23 documented as of this encounter
--- OUTSIDE RECORDS SUMMARY | 2024-08-07 02:24 | XMS_ITS | Encounter Summary ---
Author Organization [facility] Address [address] [place] [address] Phone Care Team Providers Care Breaker Oiler Name Role Phone Sohan Rojas MD Primary Care Provider Lamin Mcgraw MD Unavailable Manuel Chowdhury MD Unavailable Shahrzad SONI MD, Sea Juarez Unavailable Encounter Details Date Type Department Care Team (Late st Contact Info) Description 07/30/2023 Orders Only [facility] [address] [facility] [address] [place] [id number] Huber Mg MD [address] [place], [place] [id number] Social History Tobacco Use Types Packs/Day Years [...] and Family Twice a week 05/31/2019 Attends Anabaptism Services Never 05/31 Active Member of Clubs [...] staff should administer the PHQ-9) 0 07/26/2023 [facility] - Occupational Stress [...] on file Legal Sex Male 8:20 PM SENIOR ABAP DEVELOPER Gender Identity Male 03/24/2021 7:53 PM CDT Sexual Orientation Straight 03/24/2021 7: 53 PM CDT Occupation Industry Job Start Date Job End Date retired Not on file Not on file Not on file documented as of this encounter Ordered Prescriptions Prescription Sig Dispense Quantity Refills Last Filled Start Date End Date escitalopram (Lexapro) 10 mg tablet Take 1 tablet (10 mg total) by mouth daily 30 tablet 11 07/30/2023 06/08/2024 documented in this encounter Progress Notes * Huber Mg MD - 07/30/2023 9:04 AM CST Lexapro ordered for anxiety 10 mg a day OR ABAP DEVELOPER documented in this encounter Plan of Treatment Not on file documented as of this encounter Visit Diagnoses Not on filedocumented in this encounter Care Teams Breaker Oiler Relationship Specialty Start Date End Date Sohan Rojas MD [address] [facility] [address] [place] [address] PCP - General Family Medicine 07/10/22 Lamin Mcgraw MD [address] [place] [address] Consulting Physician Urology 07/27/22 Manuel Chowdhury MD [address] [place] [address] Consulting Physician Neurology 01/21/23 [place] [address] [address] [facility] [address] [place] [address] Consulting Physician Neurology 01/21/23 documented as of this encounter
--- OUTSIDE RECORDS SUMMARY | 2024-08-07 02:24 | XMS_ITS | Encounter Summary ---
Author Organization [facility] Address [address] [place] [address] Phone Care Team Providers Care Audit Associate Name Role Phone Sohan Rojas MD Primary Care Provider Lamin Mcgraw MD Unavailable [phone] Manuel Chowdhury MD Unavailable Shahrzad SONI MD, Sea Juarez Unavailable [phone] Encounter Details Date Type Department Care Team (Late st Contact Info) Description 06/16/2023 Telephone [facility] First Floor [address] [place] [address] Bryson Bowling, MANAGEMENT SCIENTIST [address] [facility] [address] [place] [address] Social History Tobacco Use Types [...] staff should administer the PHQ-9) 0 01/21/2023 [facility] Occupat ional Health - [...] on file Legal Sex Male 8:20 PM RAIL PROJECT ENGINEER Gender Identity Male 03/24/2021 7:53 PM CDT Sexual Orientation Straight 03/24/2021 7: 53 PM CDT Occupation Industry Job Start Date Job End Date retired Not on file Not on file Not on file documented as of this encounter Miscellaneous Notes * Telephone Encounter - Bryson Bowling LCSW - 06/16/2023 9:18 AM CST This SW left a VM for CS offering to discuss resources and supports. YUMIKO Winston PROJECT ENGINEER documented in this encounter Plan of Treatment Not on file documented as of this encounter Visit Diagnoses Not on filedocumented in this encounter Care Teams Audit Associate Relationship Specialty Start Date End Date Sohan Rojas MD [address] [facility] [address] [place] [address] PCP - General Family Medicine 07/10/22 Lamin Mcgraw MD [address] [facility] [place] [place] [address] Consulting Physician Urology 07/27/22 Manuel Chowdhury MD [address] [place] [address] Consulting Physician Neurology 01/21/23 [place] [address] [address] [facility] [address] [place] [address] Consulting Physician Neurology 01/21/23 documented as of this encounter
--- OUTSIDE RECORDS SUMMARY | 2024-08-07 02:24 | XMS_ITS | Encounter Summary ---
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 Unavailable [phone] Anand Herrera MD Unavailable Reason for Visit * Reason Comments Follow-up 6 month f/u Encounter Details Date Type Department Care Team (Latest Contact Info) Description 01/26/2024 4:00 PM CDT Office Visit [facility] Medical [facility] Primary Care at [address] [address] Sohan Rojas MD [address] [place] [address] [address] [place] [address] Hypercholesterolemia (Primary Dx); Gastroesophageal reflux disease with esophagitis without hemorrhage; 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 behavioral disturbance, psychotic disturbance, mood disturbance, or anxiety (HCC); 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HCC); Prostate cancer (HCC) Social History Tobacco Use Types Packs/Day [...] and Family Twice a week 05/31/2019 Attends [employer] Never 05/31 Active Member of [employer]s [...] staff should administer the PHQ-9) 0 01/26/2024 [facility] - Occupational [...] on file 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 Gender Identity Male 03/24/2021 7:53 PM CDT Sexual Orientation Straight 03/24/2021 7: 53 PM CDT Occupation Industry Job Start Date Job End Date retired Not on file Not on file Not on file documented as of this encounter Last Filed Vital Signs Vital Sign Reading Time Taken Comments Blood Pressure 108/70 01/26/2024 4:12 PM CDT Pulse 58 01/26/2024 4:12 PM CDT Temperature 36 ??C (96.8 ??F) 01/26/2024 4:12 PM CDT Respiratory Rate 18 01/26/2024 4:12 PM CDT Oxygen Saturation 98% 01/26/2024 4:12 PM CDT Inhaled Oxygen Concentration - - Weight 69.9 kg (154 lb) 01/26/2024 4:12 PM CDT Height 175.3 cm (5' 9 ) 01/26/2024 4:12 PM CDT Body Mass Index 22.74 01/26/2024 4:12 PM CDT documented in this encounter Patient Instructions * Patient Instructions* Sohan Rojas MD - 01/26/2024 4:00 PM CDT Continue current regimen Labs as ordered Thanks for coming in today! My medical assistants and I are thankful you have trusted us with your care, and hope that you received EXCELLENT care today! Please do not hesitate to call if you have any questions or concerns at [phone]. You may receive a phone call, text, MYCHART message, or e-mail asking about your care today. We would love to hear your feedback on how EXCELLENT your care wastoday! Wishing you better health, always. Dr. Rojas * Attachments The following attachments cannot be sent through Care Everywhere. * DASH Eating Plan (Out Of School Hours Care Worker) (Senegalese) documented in this encounter Progress Notes * Sohan Rojas MD - 01/26/2024 4:00 PM CDT Images from the original note were not included. Subjective/Objective Patient ID: Gulshan Johnston is a 83 y.o. male. Chief Complaint Follow-up (6 month f/u) Fell a month ago. Right shoulder pain is improving. Hyperlipidemia This is a chronic problem. He has no history of diabetes, hypothyroidism, liver disease or obesity.Pertinent negatives include no chest pain, myalgias or shortness of breath. Current antihyperlipidemic treatment includes statins. Risk factors for coronary artery disease include dyslipidemia. GERD He reports no chest pain, no coughing or no wheezing. Pertinent negatives include no fatigue. He has tried a PPI for the symptoms. Current Outpatient Medications: albuterol HFA (PROVENTIL HFA,VENTOLIN HFA,PROAIR HFA) 90 mcg/actuation inhaler, Inhale 2 puffs every 4 (four) hours as needed for wheezing, Disp: 1 each, Rfl: 3 atorvastatin (LIPITOR) 20 mg tablet, Take 1 tablet (20 mg total) by mouth daily, Disp: 90 tablet, Rfl: 1 Breo Ellipta 100-25 mcg/dose diskus inhaler, INHALE 1 PUFF BY MOUTH EVERY DAY, Disp: 180 each, Rfl:0 cholecalciferol, vitamin D3, 1,000 unit tablet,chewable, , Disp: , Rfl: cranberry extract 200 mg capsule, Take 2 capsules by mouth 3 (three) times a day , Disp: , Rfl: diclofenac DR (VOLTAREN) 75 mg EC tablet, TAKE 1 TABLET BY MOUTH TWICE A DAY, Disp: 180 tablet, Rfl: 3 donepeziL (ARICEPT) 10 mg tablet, Take 1 tablet (10 mg total) by mouth nightly, Disp: 90 tablet, Rfl: 3 escitalopram (Lexapro) 10 mg tablet, Take 1 tablet (10 mg total) by mouth daily, Disp: 30 tablet, Rfl: 11 finasteride (PROSCAR) 5 mg tablet, Take 1 tablet (5 mg total) by mouth daily, Disp: 90 tablet, Rfl:1 fluticasone propionate (FLONASE) 50 mcg/actuation nasal spray, Administer 2 sprays into each nostril daily, Disp: 3 each, Rfl: 4 influenza quadrivalent [id number] (Fluzone HighDose Quad 23-24 PF) 240 mcg/0.7 mL syringe, Inject 0.7 mL into the muscle as instructed once, Disp: , Rfl: omega 6-gbn-tol-fish oil 360-1,200 mg capsule,delayed release(DR/EC), Take 1 capsule by mouth daily, Disp: , Rfl: omeprazole (PriLOSEC) 20 mg capsule, TAKE 1 CAPSULE BY MOUTH EVERY DAY, Disp: 90 capsule, Rfl: 1 Sodium Fluoride 5000 Dry Mouth 1.1 % paste, , Disp: , Rfl: tamsulosin (FLOMAX) 0.4 mg extended release capsule, Take 1 capsule (0.4 mg total) by mouth daily, Disp: 90 capsule, Rfl: 1 terbinafine (LamiSIL) 250 mg tablet, , Disp: , Rfl: varicella-zoster (SHINGRIX) 50 mcg/0.5 mL vaccine, Inject 0.5 mL into the muscle as instructed, Disp: , Rfl: vitamin b complex (Vitamins B Complex) tablet, Take 1 tablet by mouth daily, Disp: , Rfl: vitamin E (AQUASOL E) 1,000 unit capsule, Take 5 capsules (5,000 Units total) by mouth daily, Disp:, Rfl: Review of Systems Constitutional: Negative for fatigue and fever. HENT: Negative. Eyes: Negative. Respiratory: Negative for cough, shortness of breath and wheezing. Cardiovascular: Negative for chest pain and palpitations. Gastrointestinal: Negative. Genitourinary: Negative. Musculoskeletal: Negative for myalgias and neck pain. Neurological: Negative for headaches. Psychiatric/Behavioral: Negative. BP 108/70 (BP Location: Right arm, Patient Position: Sitting) Pulse 58 Temp 36 ??C (96.8 ??F) (Temporal) Resp 18 Ht 175.3 cm (5' 9 ) Wt 69.9 kg (154 lb) SpO2 98% BMI 22.74 kg/m?? Physical Exam Vitals reviewed. Constitutional: Appearance: He is normal weight. HENT: Head: Normocephalic and atraumatic. Cardiovascular: Rate and Rhythm: Normal rate and regular rhythm. Pulmonary: Breath sounds: No wheezing, rhonchi or rales. Musculoskeletal: Right lower leg: No edema. Left lower leg: No edema. Neurological: Mental Status: He is alert and oriented to person, place, and time. Mental status is at baseline. No visits with results within 1 Month(s) from this visit. Latest known visit with results is: Telephone on 08/30/2023 Component Date Value Ref Range Status WBC 09/01/2023 4.8 3.8 - 10.8 Thousand/uL Final RBC, POC 09/01/2023 3.91 (L) 4.20 - 5.80 Million/uL Final Hgb 09/01/2023 12.9 (L) 13.2 - 17.1 g/dL Final Hct 09/01/2023 37.2 (L) 38.5 - 50.0 % Final MCV 09/01/2023 95.1 80.0 - 100.0 fL Final MCH 09/01/2023 33.0 27.0 - 33.0 pg Final MCHC 09/01/2023 34.7 32.0 - 36.0 g/dL Final Rdw 09/01/2023 12.5 11.0 - 15.0 % Final Platelets 09/01/2023 186 140 - 400 Thousand/uL Final MPV 09/01/2023 10.2 7.5 - 12.5 fL Final Neutrophils, abs 09/01/2023 3,053 1,500 - 7,800 cells/uL Final Lymphocytes, abs 09/01/2023 1,032 850 - 3,900 cells/uL Final Monocyte abs 09/01/2023 427 200 - 950 cells/uL Final Eosinophils, abs 09/01/2023 230 15 - 500 cells/uL Final Basophils, abs 09/01/2023 58 0 - 200 cells/uL Final Neutrophils 09/01/2023 63.6 % Final Lymphocyte pct 09/01/2023 21.5 % Final Monocytes 09/01/2023 8.9 % Final Eosinophils 09/01/2023 4.8 % Final Basophils 09/01/2023 1.2 % Final Glucose 09/01/2023 98 65 - 139 mg/dL Final Comment: Non-fasting reference interval BUN 09/01/2023 24 7 - 25 mg/dL Final Creatinine 09/01/2023 0.98 0.70 - 1.22 mg/dL Final eGFR 09/01/2023 77 > OR = 60 mL/min/1.73m2 Final BUN/creat ratio 09/01/2023 SEE NOTE: 6 - 22 (calc) Final Comment: Not Reported: BUN and Creatinine are within reference range. Sodium 09/01/2023 139 135 - 146 mmol/L Final Potassium, pl 09/01/2023 4.3 3.5 - 5.3 mmol/L Final Chloride 09/01/2023 104 98 - 110 mmol/L Final CO2 09/01/2023 27 20 - 32 mmol/L Final Calcium 09/01/2023 9.2 8.6 - 10.3 mg/dL Final Protein, sr 09/01/2023 6.1 6.1 - 8.1 g/dL Final Albumin 09/01/2023 4.2 3.6 - 5.1 g/dL Final GLOBULIN 09/01/2023 1.9 1.9 - 3.7 g/dL (calc) Final Alb/glob ratio 09/01/2023 2.2 1.0 - 2.5 (calc) Final Bilirubin, total 09/01/2023 0.8 0.2 - 1.2 mg/dL Final Alk phos 09/01/2023 46 35 - 144 U/L Final AST 09/01/2023 18 10 - 35 U/L Final ALT (SGPT) 09/01/2023 23 9 - 46 U/L Final Cholesterol 09/01/2023 174 <200 mg/dL Final HDL 09/01/2023 43 > OR = 40 mg/dL Final Triglycerides 09/01/2023 142 <150 mg/dL Final LDL 09/01/2023 106 (H) mg/dL (calc) Final Comment: Reference range: <100 Desirable range <100 mg/dL for primary prevention; <70 mg/dL for patients with CHD or diabetic patients with > or = 2 CHD risk factors. LDL-C is now calculated using the Harmeet-Yanely calculation, which is a validated novel method providing better accuracy than the Friedewald equation in the estimation of LDL-C. Harmeet LAFLEUR et al. BECCA. 2013;310(19): 6792-8821 (http://education.FreedomPay.MedRunner/faq/OMH265) Chol/HDL ratio 09/01/2023 4.0 <5.0 (calc) Final Non-HDL, (LDL+VLDL) 09/01/2023 131 (H) <130 mg/dL (calc) Final Comment: For patients with diabetes plus 1 major ASCVD risk factor, treating to a non-HDL-C goal of <100 mg/dL (LDL-C of <70 mg/dL) is considered a therapeutic option. Assessment/Plan Diagnoses and all orders for this visit: Hypercholesterolemia (Primary) Comments: Awaiting labs Continuing atorvastatin 20 mg q.h.s. Orders: - CBC with auto differential; Future - Comprehensive metabolic panel; Future - Lipid panel; Future - CBC with auto differential; Future - Comprehensive metabolic panel; Future - Lipid panel; Future Gastroesophageal reflux disease with esophagitis without hemorrhage Comments: symptoms are controlled Continuing omeprazole 20 mg daily Orders: - CBC with auto differential; Future - CBC with auto differential; Future 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 behavioral disturbance, psychotic disturbance, mood disturbance, or anxiety (HCC) Comments: gradual progression expected Memory seems to be functioning pretty well today, at least short term 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HCC) Comments: Stable Prostate cancer (HCC) Comments: continuing follow-up with Dr. Mcgraw Orders: - PSA, total and free; Future Sohan Rojas MD This office note has been partially dictated using Tilt software, and as a result portions of the record may have been created with this software. Occasional wrong-word or '[id number]' substitutions may have occurred due to the inherent limitations of voice recognition software. Read the chartcarefully and recognize, using context, where substitutions have occurred. documented in this encounter Plan of Treatment Scheduled Orders Name Type Priority Associated Diagnoses Orde r Schedule CBC with auto differential Lab Routine Hypercholesterolemia Gastroesophageal reflux disease with esophagitis without hemorrhage Expected: 01/31/2024 (Approximate), Expires: 01/25/2025 Comprehensive metabolic panel Lab Routine Hypercholesterolemia Expected: 01/31/2024 (Approximate), Expires: 01/25/2025 Lipid panel Lab Routine Hypercholesterolemia Expected: 01/31/2024 (Approximate), Expires: 01/25/2025 documented as of this encounter Procedures Procedure Name Priority Date/Time Associated Diagnosis Comments CBC WITH AUTO DIFFERENTIAL Routine 02/28/2024 2:22 PM CDT Hypercholesterolemi a Gastroesophageal reflux disease with esophagitis without hemorrhage PSA, TOTAL AND FREE Routine 02/28/2024 2 :22 PM CDT Prostate cancer (HCC) LIPID PANEL Routine 02/28/2024 2:22 PM CDT Hypercholesterolemi a COMPREHENSIVE METABOLIC PANEL Routine 02/28/2024 2:22 PM CDT Hypercholesterolemi a documented in this encounter Results * PSA, total and free (02/28/2024 2:22 PM CDT) PSA <0.1 < OR = 4.0 ng/mL REAL SAMURAI Dale PSA, free <0.1 ng/mL REAL SAMURAI Dale PSA, free UNABLE TO CALCULATE >25 % (calc) [facility] Comment: The free PSA level is below detectable limits. We are unable to calculate a % free PSA. PSA(ng/mL) ?Free PSA(%) ? Estimated(x) Probability ? of Cancer(as%) 0-2.5 ?(*) ? Approx. 1 2.6-4.0(1) ? 0-27(2) ? 24(3) 4.1-10(4) ?0-10 ?56 ? 11-15 ? 28 ? 16-20 ? 20 ? 21-25 ? 16 ? >or =26 ? 8 >10(+) ? N/A ?>50 References:(1)Arelis.:Urology 60: 469-474 (2002) ? (2)Nicole becktet al.:J.Urol 168: 922-925 (2002) ?Free PSA(%) ?? Sensitivity(%) ??Specificity(%) ?< or = 25 ?85 ?19 ?< or = 30 ?93 ? 9 ? (3)Nicole et al.:BECCA 277: 2231-8405 (1996) ? (4)Nicole et al.:BECCA 279: 6034-9706 (1997) (x)These estimates vary with age, ethnicity, family ?? history and FRANK results. (*)The diagnostic usefulness of % Free PSA has not been ?? established in patients with total PSA below 2.6 ng/mL (+)In men with PSA above 10 ng/mL, prostate cancer risk is ?? determined by total PSA alone. The Total PSA value from this assay system is standardized against the equimolar PSA standard. The test result will be approximately 20% higher when compared to the WHO-standardized Total PSA (Siemens assay). Comparison of serial PSA results should be interpreted with this fact in mind. PSA was performed using the [place] Chilo Immunoassay method. Values obtained from different assay methods cannot be used interchangeably. PSA levels, regardless of value, should not be interpreted as absolute evidence of the presence or absence of disease. Blood 02/28/2024 2:22 PM CDT 02/28/2024 2:22 PM CDT Narrative [facility] - 03/01/2024 10:46 AM CDT FASTING:NO FASTING: NO Sohan Rojas MD LAB BLOOD ORDERABLES Final Result [facility] [address] [place] [address] * (ABNORMAL) Lipid panel (02/28/2024 2:22 PM CDT) Pathologist [facility] [place] Cholesterol 154 <200 mg/dL [facility] HDL 39(L) > OR = 40 mg/dL [facility] Triglycerides 148 <150 mg/dL [facility] LDL 90 mg/dL (calc) [facility] Comment: Reference range: <100 Desirable range <100 mg/dL for primary prevention; ?? <70 mg/dL for patients with CHD or diabetic patients with > or = 2 CHD risk factors. LDL-C is now calculated using the Harmeet-Ny calculation, which is a validated novel method providing better accuracy than the Friedewald equation in the estimation of LDL-C. Harmeet SS et al. BECCA. 2013;310(19): 9599-8422 (http://education.FreedomPay.MedRunner/faq/EHP756) Chol/HDL ratio 3.9 <5.0 (calc) [facility] Non-HDL, (LDL+VLDL) 115 <130 mg/dL (calc) [facility] Comment: For patients with diabetes plus 1 major ASCVD risk factor, treating to a non-HDL-C goal of <100 mg/dL (LDL-C of <70 mg/dL) is considered a therapeutic option. Blood 02/28/2024 2:22 PM CDT 02/28/2024 2:22 PM CDT Narrative [facility] - 03/01/2024 10:46 AM CDT FASTING:NO FASTING: NO Sohan Rojas MD LAB BLOOD ORDERABLES Final Result [facility] [address] [address] * (ABNORMAL) Comprehensive metabolic panel (02/28/2024 2:22 PM CDT) Glucose 99 65 - 139 mg/dL [facility] Comment: ? Non-fasting reference interval BUN 18 7 - 25 mg/dL [facility] Creatinine 1.28(H) 0.70 - 1.22 mg/dL [facility] eGFR 56(L) > OR = 60 mL/min/1.7 3m2 [facility] BUN/creat ratio 14 6 - 22 (calc) [facility] Sodium 138 135 - 146 mmol/L [facility] Potassium, pl 4.3 3.5 - 5.3 mmol/L [facility] Chloride 103 98 - 110 mmol/L [facility] CO2 27 20 - 32 mmol/L [facility] Calcium 9.5 8.6 - 10.3 mg/dL [facility] Protein, sr 6.5 6.1 - 8.1 g/dL [facility] Albumin 4.5 3.6 - 5.1 g/dL [facility] GLOBULIN 2.0 1.9 - 3.7 g/dL (calc) [facility] Alb/glob ratio 2.3 1.0 - 2.5 (calc) [facility] Bilirubin, total 0.9 0.2 - 1.2 mg/dL [facility] Alk phos 52 35 - 144 U/L [facility] AST 22 10 - 35 U/L [facility] ALT (SGPT) 25 9 - 46 U/L [facility] Blood 02/28/2024 2:22 PM CDT 02/28/2024 2:22 PM CDT Narrative [facility] - 03/01/2024 10:46 AM CDT FASTING:NO FASTING: NO us Sohan Rojas MD LAB BLOOD ORDERABLES Final Result [facility] [address] [address] [address] * (ABNORMAL) CBC with auto differential (02/28/2024 2:22 PM CDT) WBC 6.1 3.8 - 10.8 Thousand/u L [facility] RBC, POC 3.81(L) 4.20 - 5.80 Million/uL [facility] Hgb 12.9(L) 13.2 - 17.1 g/dL [facility] Hct 37.6(L) 38.5 - 50.0 % [facility] MCV 98.7 80.0 - 100.0 fL [facility] MCH 33.9(H) 27.0 - 33.0 pg [facility] MCHC 34.3 32.0 - 36.0 g/dL [facility] Rdw 12.6 11.0 - 15.0 % [facility] Platelets 184 140 - 400 Thousand/u L [facility] MPV 10.2 7.5 - 12.5 fL [facility] Neutrophils, abs 4,313 1,500 - 7,800 cells/uL [facility] Lymphocytes, abs 1,086 850 - 3,900 cells/uL [facility] Monocyte abs 390 200 - 950 cells/uL [facility] Eosinophils, abs 250 15 - 500 cells/uL [facility] Basophils, abs 61 0 - 200 cells/uL [facility] Neutrophils 70.7 % [facility] Lymphocyte pct 17.8 % [facility] Monocytes 6.4 % [facility] Eosinophils 4.1 % [facility] Basophils 1.0 % [facility] Blood 02/28/2024 2:22 PM CDT 02/28/2024 2:22 PM CDT Narrative [facility] - 03/01/2024 10:46 AM CDT FASTING:NO FASTING: NO Sohan Rojas MD LAB BLOOD ORDERABLES Final Result Performing Organization Address City/State/ZIP Co pr Phone Number JESSIKA [facility] [address] [address] [phone] documented in this encounter Visit Diagnoses Diagnosis Hypercholesterolemia- Primary Pure hypercholesterolemia Gastroesophageal reflux disease with esophagitis without hemorrhage 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 behavioral disturbance, psychotic disturbance, mood disturbance, or anxiety (HCC) 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HCC) Prostate cancer (HCC) Malignant neoplasm of prostate documented in this encounter Discontinued Medications Medication Sig Discontinue Reason Start Date End Da te terbinafine (LamiSIL) 250 mg tablet 08/30/2023 01/26/2024 influenza quadrivalent [id number] (Fluzone HighDose Quad 23-24 PF) 240 mcg/0.7 mL syringe Inject 0.7 mL into the muscle as instructed once Therapy completed 01/26/2024 varicella-zoster (SHINGRIX) 50 mcg/0.5 mL vaccine Inject 0.5 mL into the muscle as instructed Therapy completed 01/26/2024 documented as of this encounter Historical Medications * This list may reflect changes made after this encounter. 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
--- OUTSIDE RECORDS SUMMARY | 2024-08-07 02:24 | XMS_ITS | Encounter Summary ---
Author Organization [facility] Address [address] [place] [address] Phone Care Team Providers Care Welding Specialist Name Role Phone Sohan Rojas MD Primary Care Provider [phone] Lamin Mcgraw MD Unavailable [phone] Manuel Chowdhury MD Unavailable Shahrzad SONI MD, [place] Unavailable [phone] Reason for Referral * Consultation (Routine) - Pending Review Specialty Diagnoses / Procedures Referred By Daxa londono Referred To Contact Physical Therapy Diagnoses 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 behavioral disturbance, psychotic disturbance, mood disturbance, or anxiety (HCC) Abnormality of gait and mobility Derrell Mcintosh NP [address] [place] [address] Phone: tel: fax: External Order Referral ID Status Reason Start Date Expiration Date Visits Requested Visits Authorized [id number] Pending Review Evaluate and Treat 01/05/2024 02/03/2025 24 24 Question Answer PTRFR PT Evaluate and Treat Therapy options discussed with patient? Yes Location provided for therapy services is: Patient requested/Patient preferred Please select the performing region: External Order [171] # of visits: 24 * Consultation (Routine) - Pending Review Specialty Diagnoses / Procedures Referred By Contac t Referred To Contact Sleep Medicine Diagnoses 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 behavioral disturbance, psychotic disturbance, mood disturbance, or anxiety (HCC) Derrell Mcintosh NP [address] [place] [address] Phone: tel: fax: [facility] (All Locations) Referral ID Status Reason Start Date Expiration Date Visits Requested Visits Authorized [id number] Pending Review Specialty Services Required 01/05/2024 02/03/2025 1 1 Question Answer Please select the performing region: [facility] (All Locations) [167] # of visits: 1 Comments Needs sleep study * Consultation (Routine) - Closed Specialty Diagnoses / Procedures Referred By Contac t Referred To Contact Neurosurgery Diagnoses 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 behavioral disturbance, psychotic disturbance, mood disturbance, or anxiety (HCC) Abnormality of gait and mobility Derrell Mcintosh NP [address] [place] [address] Phone: tel: fax: [facility] (All Locations) Referral ID Status Reason Start Date Expiration Date V isits Requested Visits Authorized [id number] Closed Specialty Services Required 01/05/2024 02/03/2025 4 4 Question Answer Please select the performing region: [facility] (All Locations) [167] # of visits: 4 Comments NPH, possible SCHOOL TRAFFIC GUARD shunt Reason for Visit * Reason Comments Alzheimer's Disease * Consultation (Routine) - Authorized Specialty Diagnoses / Procedures Referred By Contac t Referred To Contact Neurology Diagnoses 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 behavioral disturbance, psychotic disturbance, mood disturbance, or anxiety (HCC) Lexii Flores NP [address] [place] [address] Phone: tel: fax: [facility] (All Locations) Referral ID Status Reason Start Date Expiration Date Visits Requested Visits Authorized [id number] Authorized Specialty Services Required 11/16/2023 11/14/2024 12 12 Encounter Details Date Type Department Care Team (Late st Contact Info) Description 01/05/2024 12:15 PM CDT Office Visit [facility] [address] 6[address] [place] [address] Derrell Mcintosh, DAMARIS [address] [place] [address] Abnormality of gait and mobility (Primary Dx); 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 behavioral disturbance, psychotic disturbance, mood disturbance, or anxiety (HCC) Social History Tobacco Use Types Packs/Day [...] and Family Twice a week 05/31/2019 Attends [employer] Services Never 05/31 Active Member of Clubs [...] staff should administer the PHQ-9) 0 07/26/2023 [facility] [place] of Occupat ional Health - Occupational Stress [...] on file 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 Gender Identity Male 03/24/2021 7:53 PM CDT Sexual Orientation Straight 03/24/2021 7: 53 PM CDT Occupation Industry Job Start Date Job End Date retired Not on file Not on file Not on file documented as of this encounter Last Filed Vital Signs Vital Sign Reading Time Taken Comments Blood Pressure 112/56 01/05/2024 12:00 PM CDT Pulse 84 01/05/2024 12:00 PM CDT Temperature 36.9 ??C (98.5 ??F) 01/05/2024 12:00 PM C DT Respiratory Rate - - Oxygen Saturation 97% 01/05/2024 12:00 PM CDT Inhaled Oxygen Concentration - - Weight 71 kg (156 lb 8 oz) 01/05/2024 12:00 PM C DT Height 175.3 cm (5' 9 ) 01/05/2024 12:00 PM CDT Body Mass Index 23.11 01/05/2024 12:00 PM CDT documented in this encounter Patient Instructions * Patient Instructions* Derrell Mcintosh NP - 01/05/2024 12:15 PM CDT [facility] After Visit Summary [facility] Department of Neurology Clinic INGRID Hernandez (Nurse Practitioner) [facility]. We appreciate this opportunity to participatein your care. We have reviewed the concerns about your memory and thinking. Memory and thinking test scores today: MMSE (Mini Mental Status Exam): Mini-Mental Total Score ((out of 30): 22 A perfect score on this test is 30. A score of of between 27-30 is considered normal. A score of 24-26 is considered mildly impaired. A score of 20-23 is impaired. Scores below 20 show moderate impairment and 10 or below showssevere impairment. Diagnosis: We think that the changes you and your family have observed in your memory and thinking are most likely caused by: Alzheimer's dementia Medications: No changes were made to your medications today. Additional Recommendations Nutrition: We recommend that you eat a balanced diet, including fruits, vegetables, and regular servings of fish daily. Alcohol intake: We recommend that you limit alcohol intake to no more than 7 drinks per week and nomore than 3 drinks in one day. A drink is one 12-ounce can or bottle of regular beer, bryn, or wine cooler, or one 5 ounce glass of wine, or one 1.5 ounce shot of liquor. Activity: We recommend that you engage in daily physical activity such as walking or stretching. Ifyou have not already done so, you should consider developing a regular exercise regimen. We recommend you do activities that stimulate your mind, such as puzzles, books, working on hobbies, visiting with friends and relatives, or engaging in other social and community activities. Sleep: Sleep can have a big effect on your memory and thinking. Make sure you get a good night's sleep every night. If you have trouble sleeping, make sure you follow these rules for basic sleep hygiene: - Get up at the same time every morning, regardless of how little or how poorly you sleep. - No napping during the day time. If naps are really necessary, nap for less than an hour and only nap before 3 PM. - Have a regular calm down time before going to bed. Do not work right up until bedtime. - Have a regular exercise schedule, as exercise helps consolidate sleep. - No caffeine for six hours before bedtime. - No watching television or using the computer in your bedroom or at bedtime. - If you are not able to fall asleep after 20 minutes, get out of bed and do a relaxing activity for a few minutes. Driving: We support your decision to stop driving. Safety: No safety concerns were discussed today. Legal: No legal concerns were discussed today. You may wish to consult an convex grinder operator regarding these matters. Level of Care Recommendation: You can continue to live independently. RESEARCH STUDIES Many people have problems with their memory so it is very important that we find better ways to diagnose and treat people with memory disorders. You can help by participating in research studies. There are many different types of research studies. You and your family and/or caregivers can decide ifyou want to participate in research and what type of research study would be best for you. As a patient at the [facility], you or your caregivers may be asked to sign a consentform so that some information about you may be included in the [facility] Data Repository. This is a list of people who have been seen in our clinic and can be used to help researchers at [facility] find people who might be interested in participating in research studies. If you signed this form, you might be contacted by some of these researchers to see if you might be interested in participating in a research project. You and family can decide if you want to hear moreabout these projects and if you would like to participate. Signing the [facility] Data Repository consent form does not mean that you are agreeing to be in a research project; it only means the investigators can contact you to see if you might be interested in research projects. If you are interested in participating in research studies, consider the following opportunities: The Memory and Aging Project (MAP) is a long-term study of memory and thinking function in people as they age. Participation in MAP includes annual visits for assessment of memory and thinking abilities, annual pencil and paper testing of memory abilities, and infrequent brain scans and spinal taps. A friend or family member who knows you well must be available to provide information at the annual assessment. We will ask the service coordinator elderly facility to contact you with more information. If you do not hear from the MAP team you may consider calling [phone]. You should mention that you have seen one of the physicians at the [facility]. Patients and their care partners (age 50 and up) are invited to join the APT Webstudy, a national study sponsored by the National [place] of Aging, one of the National Institutes of Health. The APTWebstudy is an online study where you can learn more about dementia and brain health. Participants take memory tests and track their thinking online; you can use a computer, tablet or smartphone. As part of the APT webstudy, you may learn about other research opportunities, including clinical trials that may help us prevent Alzheimer disease and other dementias. To lean more, go online to https://www.aptwebstudy.org/welcome. Additional information on current and upcoming research at [facility] in [place] can be found below: https://[facility]/clinical-trials/ https://[facility]/ysw-gce-qwywpsrvz/vqccyvfbe-efw-udfefuxn/ Additional Resources and Support: Alzheimer's Association [facility]: ; (toll free); http://www.alz.org The Alzheimer's Association 08/02 Helpline provides reliable information and support to all those who need assistance. Call toll-free anytime day or night at . [employer]: [place] is to extend and improve quality time at home for people livingwith dementia and their care partners, or memorycarehs.org, They provide family care nurse rn support, education and skills. [employer] will make it easier for you to enhance your skills and adapt your home setting to meet the ever-changing demands of caregiving. Charis Costa R.N. [employer]'s [employer] [address] [place] [address] Toll Free: [phone] ext [phone] Email: The best way to reach our team is via My Chart, this is a secure way for us to communicate about your health care. Please call The My Chart Support Desk: [phone] for help with My Chart, or [phone] to obtain a link for access. Future Appointments Date Time Provider Department Center 01/26/2024 4:00 PM Sohan Rojas MD PCP [facility] We offer in person and telemedicine (virtual) visits. Please let us know your preference when scheduling. documented in this encounter Progress Notes * Derrell Mcintosh NP - 01/05/2024 12:15 PM CDT Images from the original note were not included. [facility] OFFICE VISIT INGRID Hernandez (Nurse Practitioner) [facility] Department of Neurology Patient Name: LILLIE VERA Medical Record Number (MRN): [id number] Date of (): 1940 Encounter Date: 01/05/24 Primary Care Practitioner: Sohan Rojas MD Chief Complaint: Memory and thinking difficulty HISTORY OF PRESENT ILLNESS: Mr. Vera is a 83 y.o. gentleman who comes to the [facility] today for further evaluation of memory and thinking problems. He was last seen in the [facility] by Dr. Mg on 06/15/23. There have not been hospitalizations or major medical illnesses since the last visit. He is in generally good health. Collateral Source (CS): Daughter, Dominga, serves as the collateral source/sources (CS/CS's). The CS typically sees the patient a couple times per week. Dementia History (portions may be copied and pasted from prior notes): IOV with Dr. Mg with memory and thinking problems for the past few years. CS has noticed decline in cognition and he becomes fixated on things and worries. He is worried all of his pipes are going to burst and he runs the hot water frequently. He will not listen to reason. He is not consistently taking his medications. He has more trouble at night. He has trouble with technologies around the house. Etiology unclear but Alzheimer's disease is possible. CSF studies are equivocal. NPH is also possibility with gait difficulties, incontinence, and cognitive decline. Offered referral [place] [facility] but declined at the moment. Reduced donepezil/Aricept to 5 mg. MMSE 24 CDR 0.5. Today's Visit: CS thinks memory and thinking problems have slightly declined since the last visit. He continues tolive by himself. CS has noticed improvement in behaviors on escitalopram/Lexapro. He is less anxious and fixated on things. He is taking the donepezil/Aricept and tolerating it well. He continues to forget new information in a conversation. This has gotten a little worse when compared to the last visit. He has better days. He sleeps on the couch and does not sleep well. He continues to repeat andask the same questions repeatedly. CS oversees medications and finances. He does pretty well with remembering to take his medications in the morning. He has more difficulty with remembering to take his evening medications. CS manages appointments. He can sometimes remember the day of the week. He has difficulty with time relationships. He continues to not drive. He has more trouble finding his way about familiar streets. He does not wander. He likes to go out to his yard. Family has a Ring camera outside the house. His walking is worse and CS sees more shuffling. He refuses to even go to the store with the CS because he has to walk. He worked with physical therapy in the past but he says itwas not helpful (which family disagree). Judgment and problem solving skills are fair. He can make his own menu selection at a restaurant but would be unable to calculate the tip. He would be able tohandle a small house emergency such as a small fire or a water leak. Social interactions are appropriate. Always been a homebody. He is unable to shop alone for groceries and clothes. He was doing his own [employer] orders for a while but since about a year ago, he has stopped. He is able to make a list of items for the CS to grab. His function at home is moderately impaired. They have a defensive fire control systems operator that comes once a month. He also takes care of a dog. He takes better care of the dog than himself per CS. He is good about feeding the dog by keeping track of it on a calendar and taking her out. There is a decline in the ability to use technologies, especially the computer (e.g. Cell phone, TV remote and/or computers). 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 He can still check his e-mail and will have trouble logging in, even when it is saved on his computer. He is still able to do the dishes. Never cooked. He has been doing less of the laundry and notices that he wears more clothes that have stains on them. CS unsure if he is bathing like he should be. He continues to have urinary incontinence and wears Depends. He will say he showered but CS unsure if this is true. He continues to have several falls, about three within the past couple of months. He had a recent fall and had a cut on his head. He refused to shower for three weeks as he did not want to get the cut wet. He is eating well and is not losing weight. He snacks on a lot of junk food. No language difficulty. No hallucinations or delusions. [facility] He does not have difficulty with understanding visual images or spatial relationships (trouble reading, judging distances, writing). Medical Records Review: I reviewed [facility] notes and prior neuropsychometric testing scores. REVIEW OF SYSTEMS Review of Systems Constitutional: Negative. HENT: Negative. Eyes: Negative. Respiratory: Negative. Cardiovascular: Negative. Gastrointestinal: Negative. Genitourinary: Negative. Musculoskeletal: Positive for falls. Skin: Negative. Neurological: Memory loss Endo/Heme/Allergies: Negative. Psychiatric/Behavioral: Negative. ACTIVE PROBLEMS Patient Active Problem List Diagnosis Hypercholesterolemia Osteoarthritis Rosacea Bronchial asthma Gastroesophageal reflux disease Diffuse cervicobrachial syndrome Lumbago Degenerative lumbar spinal stenosis Chronic pain Cervical radiculopathy Anemia Insomnia, unspecified Intrinsic eczema Prostate cancer ([facility]) Pure hypercholesterolemia Lumbar back pain Primary osteoarthritis of left shoulder Dyspnea, unspecified Acute sinusitis Callus of toe Onychomycosis of toenail Pain in toe Paronychia of toe of right foot Sleep disorder Asthma Arthritis 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[facility]) Encounter for Medicare annual wellness exam Spinal stenosis of lumbar region with neurogenic claudication Radiculopathy, lumbosacral region Balance problem 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 behavioral disturbance, psychotic disturbance, mood disturbance, or anxiety ([facility]) Abnormality of gait and mobility ALLERGIES Allergies Allergen Reactions Memantine Delusions Increased confusion Other Sneezing Seasonal allergies MEDICATIONS Current Outpatient Medications: albuterol HFA (PROVENTIL HFA,VENTOLIN HFA,PROAIR HFA) 90 mcg/actuation inhaler, Inhale 2 puffs every 4 (four) hours as needed for wheezing, Disp: 1 each, Rfl: 3 Breo Ellipta 100-25 mcg/dose diskus inhaler, INHALE 1 PUFF BY MOUTH EVERY DAY, Disp: 180 each, Rfl:0 cholecalciferol, vitamin D3, 1,000 unit tablet,chewable, , Disp: , Rfl: cranberry extract 200 mg capsule, Take 2 capsules by mouth 3 (three) times a day , Disp: , Rfl: diclofenac DR (VOLTAREN) 75 mg EC tablet, Take 1 tablet (75 mg total) by mouth 2 (two) times a day,Disp: 180 tablet, Rfl: 3 donepeziL (ARICEPT) 10 mg tablet, Take 1 tablet (10 mg total) by mouth nightly, Disp: 90 tablet, Rfl: 3 escitalopram (Lexapro) 10 mg tablet, Take 1 tablet (10 mg total) by mouth daily, Disp: 30 tablet, Rfl: 11 fluticasone propionate (FLONASE) 50 mcg/actuation nasal spray, Administer 2 sprays into each nostril daily, Disp: 3 each, Rfl: 4 influenza quadrivalent 2616-4078 (Fluzone HighDose Quad 23-24 PF) 240 mcg/0.7 mL syringe, Inject 0.7 mL into the muscle as instructed once, Disp: , Rfl: omega 0-alk-usz-fish oil 360-1,200 mg capsule,delayed release(DR/EC), Take 1 capsule by mouth daily, Disp: , Rfl: omeprazole (PriLOSEC) 20 mg capsule, TAKE 1 CAPSULE BY MOUTH EVERY DAY, Disp: 90 capsule, Rfl: 1 Sodium Fluoride 5000 Dry Mouth 1.1 % paste, , Disp: , Rfl: varicella-zoster (SHINGRIX) 50 mcg/0.5 mL vaccine, Inject 0.5 mL into the muscle as instructed, Disp: , Rfl: vitamin b complex (Vitamins B Complex) tablet, Take 1 tablet by mouth daily, Disp: , Rfl: vitamin E (AQUASOL E) 1,000 unit capsule, Take 5 capsules (5,000 Units total) by mouth daily, Disp:, Rfl: atorvastatin (LIPITOR) 20 mg tablet, Take 1 tablet (20 mg total) by mouth daily, Disp: 90 tablet, Rfl: 1 finasteride (PROSCAR) 5 mg tablet, Take 1 tablet (5 mg total) by mouth daily, Disp: 90 tablet, Rfl:1 tamsulosin (FLOMAX) 0.4 mg extended release capsule, Take 1 capsule (0.4 mg total) by mouth daily, Disp: 90 capsule, Rfl: 1 terbinafine (LamiSIL) 250 mg tablet, , Disp: , Rfl: Family History Problem Relation Age of Onset [...] not drink Frequency of Binge Drinking: Never PHYSICAL EXAM BP 112/56 (BP Location: Left arm, Patient Position: Sitting) Pulse 84 Temp 36.9 ??C (98.5 ??F) (Temporal) Ht 175.3 cm (5' 9 ) Wt 71 kg (156 lb 8 oz) SpO2 97% BMI 23.11 kg/m?? Wt Readings from Last 6 Encounters: 01/05/24 71 kg (156 lb 8 oz) 09/01/23 69.3 kg (152 lb 10.7 oz) 07/26/23 71.1 kg (156 lb 11.2 oz) 06/15/23 72.1 kg (159 lb) 03/12/23 72.5 kg (159 lb 12.8 oz) 02/08/23 72 kg (158 lb 9.9 oz) General Assessment There were no orthostatic complaints. Cranial Nerves Visual chapa testing intact. Pupils were equal, round and reactive to light. Extraocular movementswere normal with smooth pursuit. Facial sensation was intact in all three divisions of the trigeminal nerve. Facial movement was slightly asymmetric, slight decrease right nasolabial fold. Hearing was intact. Palate elevation was symmetric. Shoulder shrug and head turning were symmetric. Tongue protrusion was midline. Motor Motor exam revealed normal bulk, tone, and strength throughout. Fine finger movements were normal .There was no pronator drift. Tremor was absent, bradykinesia was absent. Sensation Sensation was intact to light touch. Coordination Able to extend arms out with eyes closed and touch nose. Reflexes Reflexes were symmetric at the biceps, brachioradialis and knees. Gait Gait was slow with shuffling. He was fluent throughout the interview and examination. Neuropsychiatric Testing The auto brake technician spent from 1215 to 1228 on neuropsychological test administration and scoring. The patient was fluent throughout the interview and examination, complying with three-steps of a four-step command. Confrontational naming was intact to medium- frequency words. He recalled 0/5 items on the Kervin Brown memory phrase and 0/3 items on delayed recall testing on the MMSE. The patient wasoriented to year, season and place. He was not oriented to the day of the week and month. The patient was able to spell WORLD backwards. The patient was unable to draw an analog clock and indicate the correct time. The patient was able to copy intersecting pentagons. The patient was able to write acomplete sentence. GDS (Geriatric Depression Screen) was administered today. He endorsed 1 items onthe GDS. My interpretation and reporting of these results took 5 minutes. I reviewed the testing with the CS(CS'S) and patient and compared prior testing scores. 06/15/2023 7:00 AM 01/05/2024 7:00 AM [facility] Neurobehavioral Status Exam Results Repository ICF signed? No No Verbal Fluency Total Score 7 [place] Naming (15 item) Total Score 14 13 MMSE Score 24 22 Word List Memory Task 6 Word List Recall 0 Short Blessed Total Score 12 17 Logical Memory Total Score 0 0 Trails A - Seconds to complete 68 60 Trails A - Errors 0 0 Trails B - Seconds to complete 180 Trails B - Errors 1 Total Score (out of 90) 35 Digit Symbol Errors 0 Clinical Dementia Ratin06/15/2023 7:00 AM 01/05/2024 7:00 AM [facility] CDR/DIAGNOSIS NEW Repository ICF signed? No No Memory 1 Orientation 0.5 Judgement & Problem Solving 1 Community Affairs 1 Home & Hobbies 1 Personal Care 0.5 Global Score 1 Sum of Boxes 5 ASSESSMENT/PLAN: Mr. Vera is a 83 y.o. gentleman with a history of slowly progressive cognitive changes, most consistent with a clinical diagnosis of uncertain dementia, possibilities include: Alzheimer's disease, NPH, mood disorder related to memory and thinking problems. 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 Patient interested in possibly getting SCHOOL TRAFFIC GUARD shunt to help with mobility, falls, and cognitive decline. Referral to physical therapy to help with balance. Orders: - Ambulatory referral to Neurosurgery; Future - Ambulatory referral order to Physical Therapy -; Future 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 behavioral disturbance, psychotic disturbance, mood disturbance, or anxiety (HCC) (G30.1, F02.B0) Assessment & Plan: Continue taking donepezil/Aricept 5 mg daily and escitalopram/Lexapro 10 mg daily. Continue working with [employer]. Sent referral for sleep medicine to have sleep study done. Follow-up in 6 months or sooner if need be. Orders: - Ambulatory referral to Neurology - Ambulatory referral to Neurosurgery; Future - Ambulatory referral to Sleep Medicine; Future - Ambulatory referral order to Physical Therapy -; Future Orders Placed This Encounter Ambulatory referral to Neurosurgery NPH, possible SCHOOL TRAFFIC GUARD shunt Standing Status: Future Standing Expiration Date: 01/04/2025 Referral Priority: Routine Referral Type: Consultation Referral Reason: Specialty Services Required Referral Location: [facility] (All Locations) Requested Specialty: Neurosurgery Number of Visits Requested: 4 Ambulatory referral to Sleep Medicine Needs sleep study Standing Status: Future Standing Expiration Date: 01/04/2025 Referral Priority: Routine Referral Type: Consultation Referral Reason: Specialty Services Required Referral Location: [facility] (All Locations) Requested Specialty: Sleep Medicine Number of Visits Requested: 1 Ambulatory referral order to Physical Therapy - Standing Status: Future Standing Expiration Date: 01/04/2025 Referral Priority: Routine Referral Type: Consultation Referral Reason: Evaluate and Treat Referral Location: External Order Requested Specialty: Physical Therapy Number of Visits Requested: 24 My total encounter time on 01/05/2024 was 50 minutes which was spent in the activities documented inthe note. This includes time spent prior to the visit and after the visit in direct care of the patient. This time does not include time spent in any separately reportable services. Derrell Mcintosh NP [facility] [address], [address] [place]. [address] Patient Instructions [facility] [place] After Visit Summary [facility], Department of Neurology Clinic INGRID Hernandez (Nurse Practitioner) Thank you for coming to the [facility]. We appreciate this opportunity to participatein your care. We have reviewed the concerns about your memory and thinking. Memory and thinking test scores today: MMSE (Mini Mental Status Exam): Mini-Mental Total Score ((out of 30): 22 A perfect score on this test is 30. A score of of between 27-30 is considered normal. A score of 24-26 is considered mildly impaired. A score of 20-23 is impaired. Scores below 20 show moderate impairment and 10 or below showssevere impairment. Diagnosis: We think that the changes you and your family have observed in your memory and thinking are most likely caused by: Alzheimer's dementia Medications: No changes were made to your medications today. Additional Recommendations Nutrition: We recommend that you eat a balanced diet, including fruits, vegetables, and regular servings of fish daily. Alcohol intake: We recommend that you limit alcohol intake to no more than 7 drinks per week and nomore than 3 drinks in one day. A drink is one 12-ounce can or bottle of regular beer, bryn, or wine cooler, or one 5 ounce glass of wine, or one 1.5 ounce shot of liquor. Activity: We recommend that you engage in daily physical activity such as walking or stretching. Ifyou have not already done so, you should consider developing a regular exercise regimen. We recommend you do activities that stimulate your mind, such as puzzles, books, working on hobbies, visiting with friends and relatives, or engaging in other social and community activities. Sleep: Sleep can have a big effect on your memory and thinking. Make sure you get a good night's sleep every night. If you have trouble sleeping, make sure you follow these rules for basic sleep hygiene: - Get up at the same time every morning, regardless of how little or how poorly you sleep. - No napping during the day time. If naps are really necessary, nap for less than an hour and only nap before 3 PM. - Have a regular calm down time before going to bed. Do not work right up until bedtime. - Have a regular exercise schedule, as exercise helps consolidate sleep. - No caffeine for six hours before bedtime. - No watching television or using the computer in your bedroom or at bedtime. - If you are not able to fall asleep after 20 minutes, get out of bed and do a relaxing activity for a few minutes. Driving: We support your decision to stop driving. Safety: No safety concerns were discussed today. Legal: No legal concerns were discussed today. You may wish to consult an convex grinder operator regarding these matters. Level of Care Recommendation: You can continue to live independently. RESEARCH STUDIES Many people have problems with their memory so it is very important that we find better ways to diagnose and treat people with memory disorders. You can help by participating in research studies. There are many different types of research studies. You and your family and/or caregivers can decide ifyou want to participate in research and what type of research study would be best for you. As a patient at the [facility], you or your caregivers may be asked to sign a consentform so that some information about you may be included in the [facility] Data Repository. This is a list of people who have been seen in our clinic and can be used to help researchers at [facility] find people who might be interested in participating in research studies. If you signed this form, you might be contacted by some of these researchers to see if you might be interested in participating in a research project. You and family can decide if you want to hear moreabout these projects and if you would like to participate. Signing the [facility] Data Repository consent form does not mean that you are agreeing to be in a research project; it only means the investigators can contact you to see if you might be interested in research projects. If you are interested in participating in research studies, consider the following opportunities: The Memory and Aging Project (MAP) is a long-term study of memory and thinking function in people as they age. Participation in MAP includes annual visits for assessment of memory and thinking abilities, annual pencil and paper testing of memory abilities, and infrequent brain scans and spinal taps. A friend or family member who knows you well must be available to provide information at the annual assessment. We will ask the service coordinator elderly facility to contact you with more information. If you do not hear from the MAP team you may consider calling [phone]. You should mention that you have seen one of the physicians at the [facility]. Patients and their care partners (age 50 and up) are invited to join the APT Webstudy, a national study sponsored by the National [place] of Aging, one of the National Institutes of Health. The APTWebstudy is an online study where you can learn more about dementia and brain health. Participants take memory tests and track their thinking online; you can use a computer, tablet or smartphone. As part of the APT webstudy, you may learn about other research opportunities, including clinical trials that may help us prevent Alzheimer disease and other dementias. To lean more, go online to https://www.aptwebstudy.org/welcome. Additional information on current and upcoming research at [facility] in [place] can be found below: https://[facility]/clinical-trials/ https://[facility]/yiu-ykw-feognwipe/ywfzrummo-vld-ktiyvotw/ Additional Resources and Support: Alzheimer's Association [facility]: ; (toll free); http://www.alz.org The Alzheimer's Association 08/02 Helpline provides reliable information and support to all those who need assistance. Call toll-free anytime day or night at . [employer]: [place] is to extend and improve quality time at home for people livingwith dementia and their care partners, or memorycarehs.org, They provide family care nurse rn support, education and skills. [employer] will make it easier for you to enhance your skills and adapt your home setting to meet the ever-changing demands of caregiving. Charis Costa R.N. [employer] [address] [place] [address] Toll Free: [phone] ext [phone] Email: The best way to reach our team is via My Chart, this is a secure way for us to communicate about your health care. Please call The My Chart Support Desk: [phone] for help with My Chart, or [phone] to obtain a link for access. Future Appointments Date Time Provider Department Center 01/26/2024 4:00 PM Sohan Rojas MD PCP [facility] We offer in person and telemedicine (virtual) visits. Please let us know your preference when scheduling. Cosigned by iAcha Koehler MD PhD at 01/14/2024 3:26 PM CDT documented in this encounter Miscellaneous Notes * Assessment & Plan Note - Derrell Mcintosh NP - 01/05/2024 1:06 PM CDTAssociated Problem(s): Abnormality of gait and mobility Referral to neurosurgery for NPH. Patient interested in possibly getting SCHOOL TRAFFIC GUARD shunt to help with mobility, falls, and cognitive decline. Referral to physical therapy to help with balance. * Assessment & Plan Note - Derrell Mcintosh NP - 01/05/2024 1:05 PM CDTAssociated Problem(s): 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 behavioral disturbance, psychotic disturbance, mood disturbance, or anxiety (HCC) Continue taking donepezil/Aricept 5 mg daily and escitalopram/Lexapro 10 mg daily. Continue working with [employer] [employer]. Sent referral for sleep medicine to have sleep study done. Follow-up in 6 months or sooner if need be. documented in this encounter Plan of Treatment Scheduled Referrals Name Type Priority Associated Diagnoses Order Schedule Ambulatory referral to Neurosurgery Outpatient Referral Routine 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 behavioral disturbance, psychotic disturbance, mood disturbance, or anxiety (HCC) Abnormality of gait and mobility Expected: 01/19/2024 (Approximate), Expires: 01/04/2025 Ambulatory referral to Sleep Medicine Outpatient Referral Routine 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 behavioral disturbance, psychotic disturbance, mood disturbance, or anxiety (HCC) Expected: 01/19/2024 (Approximate), Expires: 01/04/2025 Ambulatory referral order to Physical Therapy - Outpatient Referral Routine 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 behavioral disturbance, psychotic disturbance, mood disturbance, or anxiety (HCC) Abnormality of gait and mobility Expected: 01/19/2024 (Approximate), Expires: 01/04/2025 documented as of this encounter Visit Diagnoses Diagnosis Abnormality of gait and mobility- Primary 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 behavioral disturbance, psychotic disturbance, mood disturbance, or anxiety (HCC) documented in this encounter Orders Outpatient Referral Count Last Ordered Date Fir st Ordered Date AMB REFERRAL TO NEUROLOGY 1 01/05/2024 documented in this encounter Care Teams Welding Specialist Relationship Specialty Start Date End Date Sohan Rojas MD [address] [facility] [address] [place] [address] PCP - General Family Medicine 07/10/22 Lamin Mcgraw MD [address] [place] [address] Consulting Physician Urology 07/27/22 Manuel Chowdhury MD [address] [place] [address] Consulting Physician Neurology 01/21/23 [place] [address] [facility] [address] [place] [address] Consulting Physician Neurology 01/21/23 documented as of this encounter
--- OUTSIDE RECORDS SUMMARY | 2024-08-07 02:24 | XMS_ITS | Encounter Summary ---
Author Organization [facility] Healthcare Address [address] [place] [address] Care Team Providers Care Life Consultant Name Role Phone Sohan Rojas MD Primary Care Provider [phone] Lamin Mcgraw MD Unavailable [phone] Manuel Chowdhury MD Unavailable Shahrzad SONI MD, Carlos M. Unavailable Reason for Visit * Reason Onset Date Comments Additional Services Or Orders 08/30/2023 Encounter Details Date Type Department Care Team (Late st Contact Info) Description 08/30/[address] [facility] Primary Care at [address] [address] Sohan Rojas MD [address] [place] [address] [address] [place] [address] Additional Services Or Orders Social History Tobacco Use Types Packs/Day Years [...] and Family Twice a week 05/31/2019 Attends [employer] Never 05/31 Active Member of [employer] [...] staff should administer the PHQ-9) 0 07/26/2023 [facility] - Occupational [...] on file Legal Sex Male 8:20 PM GRINDING WHEEL OPERATOR Gender Identity Male 03/24/2021 7:53 PM CDT Sexual Orientation Straight 03/24/2021 7: 53 PM CDT Occupation Industry Job Start Date Job End Date retired Not on file Not on file Not on file documented as of this encounter Miscellaneous Notes * Telephone Encounter - Jessica Marx MA - 08/30/2023 5:37 PM GRINDING WHEEL OPERATOR Spoke to pt daughter Dominga, informed her that the order is in the system for Dominga Hale voiced understanding DING WHEEL OPERATOR * Telephone Encounter - Jessica Marx MA - 08/30/2023 4:58 PM GRINDING WHEEL OPERATOR Last lab order dated for 01/2024 DING WHEEL OPERATOR * Telephone Encounter - Daysi Rico - 08/30/2023 4:30 PM CST Medical Question/Miscellaneous Caller???s Concern: Pt daughter Dominga (HIPAA verified), called requesting lab order sent to [facility] located in [place]. The patient has an appt on Sep 01. Please notify the pt's daughter that the order has been sent. Does message need to be routed? Yes-Action Needed DING WHEEL OPERATOR documented in this encounter Plan of Treatment Not on file documented as of this encounter Procedures Procedure Name Priority Date/Time Associated Diagnosis Comments CBC WITH AUTO DIFFERENTIAL Routine 09/01/2023 10:58 AM GRINDING WHEEL OPERATOR Pure hypercholesterolemia LIPID PANEL Routine 09/01/2023 10:58 AM GRINDING WHEEL OPERATOR Pure hypercholesterolemia COMPREHENSIVE METABOLIC PANEL Routine 09/01/2023 10:58 AM GRINDING WHEEL OPERATOR Pure hypercholesterolemia documented in this encounter Results * (ABNORMAL) Lipid panel (09/01/2023 10:58 AM GRINDING WHEEL OPERATOR) Cholesterol 174 <200 mg/dL [facility] HDL 43 > OR = 40 mg/dL [facility] Triglycerides 142 <150 mg/dL [facility] LDL 106(H) mg/dL (calc) [facility] Comment: Reference [...] LDL-C. Harmeet SS et al. BECCA. 2013;310(19): 7107-2762 (http://education.Foodem/faq/QFP639) Chol/HDL ratio 4.0 <5.0 (calc) [facility] Non-HDL, (LDL+VLDL) 131(H) <130 mg/dL (calc) [facility] Comment: For patients with diabetes plus 1 major ASCVD risk factor, treating to a non-HDL-C goal of <100 mg/dL (LDL-C of <70 mg/dL) is considered a therapeutic option. Blood 09/01/2023 10:5 8 AM GRINDING WHEEL OPERATOR 09/01/2023 10:59 AM GRINDING WHEEL OPERATOR Narrative [facility] - 09/02/2023 5:24 AM GRINDING WHEEL OPERATOR FASTING:NO FASTING: NO us Sohan Rojas MD LAB BLOOD ORDERABLES Final Result [facility] [address] [place] [address] * Comprehensive metabolic panel (09/01/2023 10:58 AM GRINDING WHEEL OPERATOR) [facility] Glucose 98 65 - 139 mg/dL [facility] Comment: ? Non-fasting reference interval BUN 24 7 - 25 mg/dL [facility] Creatinine 0.98 0.70 - 1.22 mg/dL [facility] eGFR 77 > OR = 60 mL/min/1.7 3m2 [facility] BUN/creat ratio SEE NOTE: 6 - 22 (calc) [facility] Comment: ?? Not Reported: BUN and Creatinine are within ?? reference range. ? Sodium 139 135 - 146 mmol/L [facility] Potassium, pl 4.3 3.5 - 5.3 mmol/L [facility] Chloride 104 98 - 110 mmol/L [facility] CO2 27 20 - 32 mmol/L [facility] Calcium 9.2 8.6 - 10.3 mg/dL [facility] Protein, sr 6.1 6.1 - 8.1 g/dL [facility] Albumin 4.2 3.6 - 5.1 g/dL [facility] GLOBULIN 1.9 1.9 - 3.7 g/dL (calc) [facility] Alb/glob ratio 2.2 1.0 - 2.5 (calc) [facility] Bilirubin, total 0.8 0.2 - 1.2 mg/dL [facility] Alk phos 46 35 - 144 U/L [facility] AST 18 10 - 35 U/L [facility] ALT (SGPT) 23 9 - 46 U/L [facility] Blood 09/01/2023 10:5 8 AM GRINDING WHEEL OPERATOR 09/01/2023 10:59 AM GRINDING WHEEL OPERATOR Narrative [facility] - 09/02/2023 5:24 AM GRINDING WHEEL OPERATOR FASTING:NO FASTING: NO us Sohan Rojas MD LAB BLOOD ORDERABLES Final Result [facility] [address] [place] [address] * (ABNORMAL) CBC with auto differential (09/01/2023 10:58 AM GRINDING WHEEL OPERATOR) WBC 4.8 3.8 - 10.8 Thousand/u L [facility] RBC, POC 3.91(L) 4.20 - 5.80 Million/uL [facility] Hgb 12.9(L) 13.2 - 17.1 g/dL [facility] Hct 37.2(L) 38.5 - 50.0 % [facility] MCV 95.1 80.0 - 100.0 fL [facility] MCH 33.0 27.0 - 33.0 pg [facility] MCHC 34.7 32.0 - 36.0 g/dL [facility] Rdw 12.5 11.0 - 15.0 % [facility] Platelets 186 140 - 400 Thousand/u L [facility] MPV 10.2 7.5 - 12.5 fL [facility] Neutrophils, abs 3,053 1,500 - 7,800 cells/uL [facility] Lymphocytes, abs 1,032 850 - 3,900 cells/uL [facility] Monocyte abs 427 200 - 950 cells/uL [facility] Eosinophils, abs 230 15 - 500 cells/uL [facility] Basophils, abs 58 0 - 200 cells/uL [facility] Neutrophils 63.6 % [facility] Lymphocyte pct 21.5 % [facility] Monocytes 8.9 % [facility] Eosinophils 4.8 % [facility] Basophils 1.2 % [facility] Blood 09/01/2023 10:5 8 AM GRINDING WHEEL OPERATOR 09/01/2023 10:59 AM GRINDING WHEEL OPERATOR Narrative [facility] - 09/02/2023 5:24 AM GRINDING WHEEL OPERATOR FASTING:NO FASTING: NO us Sohan Rojas MD LAB BLOOD ORDERABLES Final Result [facility] [address] [place] [phone] documented in this encounter Visit Diagnoses Diagnosis Pure hypercholesterolemia- Primary documented in this encounter Care Teams Life Consultant Relationship Specialty Start Date End Date Sohan Rojas MD [address] [facility] [address] [place] [address] PCP - General Family Medicine 07/10/22 Lamin Mcgraw MD [address] [place] [address] Consulting Physician Urology 07/27/22 Manuel Chowdhury MD [address] [place] [address] Consulting Physician Neurology 01/21/23 [place] [address] [address] Consulting Physician Neurology 01/21/23 documented as of this encounter
--- OUTSIDE RECORDS SUMMARY | 2024-08-07 02:24 | XMS_ITS | Encounter Summary ---
Author Organization [facility] Address [address] [place] [address] Care Team Providers Care Frame Runner Name Role Phone Sohan Rojas MD Primary Care Provider Lamin Mcgraw MD Unavailable [phone] Manuel Chowdhury MD Unavailable Shahrzad SONI MD, Carlos M. Unavailable Reason for Visit * Reason Comments Ear Fullness Encounter Details Date Type Department Care Team (Late st Contact Info) Description 07/30/2023 5:15 PM SURGICAL INSTRUMENT MAKER Telemedicine [facility] Virtual Care [address] [place] [phone] Shanti Sanabria MD [address] [place] [address] [address] [place] [address] Dysfunction of right eustachian tube (Primary Dx) Social History Tobacco Use Types [...] and Family Twice a week 05/31/2019 Attends Hinduism Services Never 05/31 Active Member of Clubs [...] staff should administer the PHQ-9) 0 07/26/2023 [facility] - Occupational [...] on file Legal Sex Male 8:20 PM SURGICAL INSTRUMENT MAKER Gender Identity Male 03/24/2021 7:53 PM CDT Sexual Orientation Straight 03/24/2021 7: 53 PM CDT Occupation Industry Job Start Date Job End Date retired Not on file Not on file Not on file documented as of this encounter Patient Instructions * Patient Instructions* Shanti Sanabria MD - 07/30/2023 5:15 PM SURGICAL INSTRUMENT MAKER Mr. Johnston, It was a pleasure speaking with you today. I've sent medication to the pharmacy you requested. Prednisone burst- This is an anti-inflammatory that is to be taken 1 tablet twice daily for 5 days.It may upset your stomach so take it with a little food. It could make you jittery, so don't take it at bedtime. Please finish the prescription even though your are (hopefully) feeling much better. If you are having side effects from this medicine, please stop the medicine and follow up with your primary care provider. If you have no improvement or worsening of your symptoms, please follow up with your Primary Care Provider or a Convenient Care/Urgent Care where someone can see you in person rather than virtually. I strive to provide you with EXCELLENT service. You may receive a survey after your visit today. If you cannot rate your experience as EXCELLENT, please let us know how we can improve and better meet your needs. Thank you for choosing [facility]! Hope you feel better soon! Shanti Sanabria MD ICAL INSTRUMENT MAKER ICAL INSTRUMENT MAKER * Attachments The following attachments cannot be sent through Care Everywhere. * Eustachian Tube Dysfunction (General Information) (Czech) documented in this encounter Ordered Prescriptions Prescription Sig Dispense Quantity Refills Last Filled Start Date End Date predniSONE (DELTASONE) 20 mg tablet Take 1 tablet (20 mg) by mouth 2 (two) times a day for 5 days 10 tablet 07/30/2023 08/04/2023 documented in this encounter Progress Notes * Shanti Sanabria MD - 07/30/2023 5:15 PM CST Images from the original note were not included. This was a telemedicine visit with Gulshan henriquez which took place via real-time video connection with [facility]. During the visit, I was located at home and the patient was located at home in the [facility]. The patient visit started at 1706 and ended at 1716. My total encounter time on 07/30/2023 was 21 minutes which was spent in the activities documented in the note. This includes time spent prior to the visit and after the visit in direct care of the patient. This time does not include time spent in any separately reportable services. I have explained the option of participating in a telemedicine visit to the patient. After being given an opportunity to ask questions about and discuss this type of visit, the patient verbally consented to proceeding with the telemedicine visit. The patient understands that this service replaces an office visit and they may be billed and/or responsible for any applicable copayments. Subjective/Objective Patient ID: Gulshan Johnston is a 83 y.o. male. Chief Complaint Ear Fullness Pt c/o bilat ear congestion for the past week. He feels as if his ears are clogged, R>L. He is also a bit off balance upon standing and believes this to be due to his ears. He is taking dayquil/sinus medications with no relief. Tried Flonase. Notes he's had some URI symptoms when this first started. Ear Fullness There is pain in both ears. This is a new problem. The current episode started in the past 7 days. The problem occurs constantly. The problem has been waxing and waning. There has been no fever. Pertinent negatives include no abdominal pain, coughing, diarrhea, ear discharge, headaches, hearing loss, neck pain, rash, rhinorrhea, sore throat or vomiting. He has tried acetaminophen for the symptoms. The treatment provided moderate relief. There is no history of a chronic ear infection, hearing loss or a tympanostomy tube. Review of Systems HENT: Negative for ear discharge, hearing loss, rhinorrhea and sore throat. Respiratory: Negative for cough. Gastrointestinal: Negative for abdominal pain, diarrhea and vomiting. Musculoskeletal: Negative for neck pain. Skin: Negative for rash. Neurological: Negative for headaches. Physical Exam Vitals reviewed: Physical exam is limited by this being a telemedicine visit.. Constitutional: General: He is not in acute distress. Appearance: Normal appearance. He is not ill-appearing, toxic-appearing or diaphoretic. HENT: Head: Normocephalic and atraumatic. Right Ear: External ear normal. Left Ear: External ear normal. Nose: Nose normal. Mouth/Throat: Mouth: Mucous membranes are moist. Pharynx: No oropharyngeal exudate or posterior oropharyngeal erythema. Eyes: General: No scleral icterus. Right eye: No discharge. Left eye: No discharge. Extraocular Movements: Extraocular movements intact. Conjunctiva/sclera: Conjunctivae normal. Pupils: Pupils are equal, round, and reactive to light. Pulmonary: Effort: Pulmonary effort is normal. Comments: Pt was able to speak in full and complete sentences. Pt did not cough during the televisit. Pt was not using accessory muscles to breathe. Skin: Capillary Refill: Capillary refill takes less than 2 seconds. Neurological: General: No focal deficit present. Mental Status: He is alert and oriented to person, place, and time. Psychiatric: Mood and Affect: Mood normal. Behavior: Behavior normal. Thought Content: Thought content normal. Judgment: Judgment normal. I have reviewed the most recent progress note prior to this visit. Assessment/Plan Diagnoses and all orders for this visit: Dysfunction of right eustachian tube (H69.91) (Primary) Prednisone Burst erx'ed to pharmacy. Instructed on use and possible side effects of the medicine. Continue using Flonase. If no improvement, can add OTC Sudafed. If any problems or questions or no improvement of symptoms in the next few days, please f/u w/ PCP. If symptoms worsen, go to the ED. Pt verbalized understanding. Other orders - predniSONE (DELTASONE) 20 mg tablet; Take 1 tablet (20 mg) by mouth 2 (two) times a day for 5 days Shanti Sanabria MD ICAL INSTRUMENT MAKER documented in this encounter Plan of Treatment Not on file documented as of this encounter Visit Diagnoses Diagnosis Dysfunction of right eustachian tube- Primary documented in this encounter Care Teams Frame Runner Relationship Specialty Start Date End Date Sohan Rojas MD [address] [facility] [address] [place] [address] PCP - General Family Medicine 07/10/22 Lamin Mcgraw MD [address] [place] [address] Consulting Physician Urology 07/27/22 Manuel Chowdhury MD [address] [place] [address] Consulting Physician Neurology 01/21/23 [place] [address] [address] Consulting Physician Neurology 01/21/23 documented as of this encounter
--- OUTSIDE RECORDS SUMMARY | 2024-08-07 02:24 | XMS_ITS | Encounter Summary ---
Author Organization [facility] Address [address] [facility] [address] [place] [address] Care Team Providers Care Cage Tender Name Role Phone Sohan Rojas MD Primary Care Provider Lamin Mcgraw MD Unavailable [phone] Manuel Chowdhury MD Unavailable Shahrzad SONI MD, Carlos M. Unavailable [phone] Encounter Details Date Type Department Care Team (Late st Contact Info) Description 04/09/2023 Telephone [facility] [id number] [place] [address] [address] [address] Karrie Van MA Social History Tobacco Use Types Packs/Day Years [...] and Family Twice a week 05/31/2019 Attends Buddhism Services Never 05/31 Active Member of Clubs [...] staff should administer the PHQ-9) 0 01/21/2023 [facility] Occupat ional [...] on file Legal Sex Male 8:20 PM BACKUP ADMINISTRATOR Gender Identity Male 03/24/2021 7:53 PM CDT Sexual Orientation Straight 03/24/2021 7: 53 PM CDT Occupation Industry Job Start Date Job End Date retired Not on file Not on file Not on file documented as of this encounter Miscellaneous Notes * Telephone Encounter - Karrie Van MA - 04/09/2023 12:11 PM CDT CBC blood test documented in this encounter Plan of Treatment Not on file documented as of this encounter Visit Diagnoses Not on filedocumented in this encounter Care Teams Cage Tender Relationship Specialty Start Date End Date Sohan Rojas MD [address] [facility] [address] [place] [address] PCP - General Family Medicine 07/10/22 Lamin Mcgraw MD [address] [place] [address] Consulting Physician Urology 07/27/22 Manuel Chowdhury MD [address] [place] [address] Consulting Physician Neurology 01/21/23 [place] [address] [address] [facility] [address] [place] [address] Consulting Physician Neurology 01/21/23 documented as of this encounter
--- OUTSIDE RECORDS SUMMARY | 2024-08-07 02:24 | XMS_ITS | Encounter Summary ---
Author Organization [facility] Address [address] [place] [address] Care Team Providers Care Sas Clinical Programmer Name Role Phone Sohan Rojas MD Primary Care Provider [phone] Lamin Mcgraw MD Unavailable [phone] Manuel Chowdhury MD Unavailable Shahrzad SONI MD, Carlos M. Unavailable Reason for Visit * Reason Comments MCI (mild cognitive impairment) Encounter Details Date Type Department Care Team (Late st Contact Info) Description 09/01/2023 9:15 AM PAPER MILL SUPERVISOR Office Visit [facility] [id number] [place] [phone] Sea Markham II, MD [address] [place] [id number] Alzheimer's disease (HCC) (Primary Dx); Abnormality of gait and mobility Social History Tobacco Use Types Packs/Day Years [...] and Family Twice a week 05/31/2019 Attends Caodaism Services Never 05/31 Active Member of Clubs [...] staff should administer the PHQ-9) 0 07/26/2023 [facility] Occupat ional Health - [...] on file Legal Sex Male 8:20 PM PAPER MILL SUPERVISOR Gender Identity Male 03/24/2021 7:53 PM CDT Sexual Orientation Straight 03/24/2021 7: 53 PM CDT Occupation Industry Job Start Date Job End Date retired Not on file Not on file Not on file documented as of this encounter Last Filed Vital Signs Vital Sign Reading Time Taken Comments Blood Pressure 120/60 09/01/2023 9:06 AM PAPER MILL SUPERVISOR Pulse 64 09/01/2023 9:06 AM PAPER MILL SUPERVISOR Temperature - - Respiratory Rate 17 09/01/2023 9:06 AM PAPER MILL SUPERVISOR Oxygen Saturation 98% 09/01/2023 9:06 AM PAPER MILL SUPERVISOR Inhaled Oxygen Concentration - - Weight 69.3 kg (152 lb 10.7 oz) 09/01/2023 9:06 AM PAPER MILL SUPERVISOR Height 175.3 cm (5' 9 ) 09/01/2023 9:06 AM PAPER MILL SUPERVISOR Body Mass Index 22.55 09/01/2023 9:06 AM PAPER MILL SUPERVISOR documented in this encounter Progress Notes * Sea Markham II, MD - 09/01/2023 9:15 AM CST Subjective: Patient ID: Gulshan Johnston is a 83 y.o. male with dementia. HPI The patient is seen today for re-evaluation and follow-up. The patient is accompanied by his daughter who helps him with his finances. He is still living by himself and is still independent in his self-care and gait. No falls have been reported he is currently on donepezil which he tolerates. He was placed on memantine in the past by his primary care which made his confusion worse. 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 Catrachito Mg I have reviewed the consultation note of the [facility]. At this point in time he was not a candidate for amyloid reducing therapy they co nsidered the possibility of normal pressure hydrocephalus and the recommended evaluation and treatment the patient did not want to pursue this. He was given Lexapro which the daughter feels has helped. He will follow closely with the [facility]. Review of Systems Constitutional: Negative for activity change, fatigue, fever and unexpected weight change. HENT: Negative for hearing loss and nosebleeds. Eyes: Negative for photophobia and visual disturbance. Respiratory: Negative for cough and shortness of breath. Cardiovascular: Negative for chest pain and palpitations. Gastrointestinal: Negative for abdominal distention, abdominal pain, constipation, nausea and vomiting. Endocrine: Negative for cold intolerance, heat intolerance, polydipsia, polyphagia and polyuria. Genitourinary: Negative for difficulty urinating, dysuria, flank pain, frequency and urgency. Musculoskeletal: Negative for arthralgias, back pain, gait problem, joint swelling and neck pain. Skin: Negative for color change and rash. Allergic/Immunologic: Negative for environmental allergies, food allergies and immunocompromised state. Neurological: Negative for dizziness, tremors, seizures, syncope, facial asymmetry, speech difficulty, weakness, light-headedness, numbness and headaches. Hematological: Negative for adenopathy. Does not bruise/bleed easily. Psychiatric/Behavioral: Negative for agitation, behavioral problems, confusion, decreased concentration, dysphoric mood and hallucinations. The patient is not nervous/anxious. Objective: Neurological Exam Mental Status Awake and alert. Oriented only to person and place. Recalls 3 of 3 objects immediately. At 3 minutes recalls 0 of 3 objects. Recalls 0 of 3 objects with prompting. Able to copy figure. Speech is normal. Able to name objects, repeat, read and write. Follows three-step commands. Difficulty spelling words backwards. 4/5 spelling house backwards. MMSE score: 22. Missed one for the floor he is on. He did not know the month or date. He did not know the season. 12/26 for orientation. Cranial Nerves CN II: Visual chapa full to confrontation. CN III, IV, : Extraocular movements intact bilaterally. Normal lids and orbits bilaterally. Pupils equal round and reactive to light bilaterally. CN V: Facial sensation is normal. CN VII: Full and symmetric facial movement. CN VIII: Hearing is normal. CN IX, X: Palate elevates symmetrically. Normal gag reflex. CN XI: Shoulder shrug strength is normal. CN XII: Tongue midline without atrophy or fasciculations. Motor Normal muscle tone. No abnormal involuntary movements. Strength is 5/5 throughout all four extremities. Sensory Sensation is intact to light touch, pinprick, vibration and proprioception in all four extremities. Reflexes Deep tendon reflexes are 2+ and symmetric in all four extremities. Coordination Cgndma-kh-pzbe, rapid alternating movements and rwox-dv-vutd normal bilaterally without dysmetria. Gait Patient has a narrow base and walks with smaller steps.. Physical Exam Vitals reviewed. Constitutional: General: He is awake. Appearance: Normal appearance. HENT: Head: Normocephalic and atraumatic. Nose: Nose normal. Eyes: General: Lids are normal. Extraocular Movements: Extraocular movements intact. Pupils: Pupils are equal, round, and reactive to light. Cardiovascular: Rate and Rhythm: Normal rate and regular rhythm. Pulmonary: Effort: Pulmonary effort is normal. Abdominal: Palpations: Abdomen is soft. Musculoskeletal: Cervical back: Normal range of motion. Right lower leg: No edema. Left lower leg: No edema. Skin: General: Skin is warm. Findings: No rash. Neurological: Mental Status: He is alert. Motor: Motor strength is normal. Coordination: Coordination is intact. Deep Tendon Reflexes: Reflexes are normal and symmetric. Psychiatric: Speech: Speech normal. Assessment/Plan: 1. Dementia still most likely an Alzheimer's type of dementia he will follow closely with the [facility] and continue with both donepezil and Lexapro. Patient was unable to tolerate memantine in the past because of increased confusion and delusions and I have added it to her allergies. 2. 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 No follow-up is planned at this time I recommended he follow closely with the [facility]. I can see the patient again if new neurological issues develop. Medications Current Outpatient Medications: albuterol HFA (PROVENTIL HFA,VENTOLIN [...] nostril daily, Disp: 3 each, Rfl: 4 omega 7-pqd-oqt-fish oil 360-1,200 mg capsule,delayed release(DR/EC), Take 1 capsule by mouth daily, Disp: , Rfl: omeprazole (PriLOSEC) 20 mg capsule, TAKE 1 CAPSULE BY MOUTH EVERY DAY, Disp: 90 capsule, Rfl: 1 Sodium Fluoride 5000 Dry Mouth 1.1 % paste, , Disp: , Rfl: terbinafine (LamiSIL) 250 mg tablet, , Disp: [...] by mouth daily, Disp: 90 tablet, Rfl:1 influenza quadrivalent [id number] (Fluzone HighDose Quad 23-24 PF) 240 mcg/0.7 mL syringe, Inject 0.7 mL into the muscle as instructed once (Patient not taking: Reported on 09/01/2023), Disp: , Rfl: tamsulosin (FLOMAX) 0.4 mg extended release capsule, Take 1 capsule (0.4 mg total) by mouth daily, Disp: 90 capsule, Rfl: 1 History Family History Problem Relation Age of Onset [...] disease Paternal Grandmother Memory loss Paternal Grandmother Active Ambulatory Problems Diagnosis Date Noted Hypercholesterolemia 12/06/2008 Osteoarthritis 12/06/2008 Rosacea 12/06/2008 Bronchial asthma 12/06/2008 Gastroesophageal reflux disease 06/18/2011 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 Lumbago 05/18/2016 Degenerative lumbar spinal stenosis 05/20/2016 Chronic pain 02/17/2013 Cervical radiculopathy 06/19/2016 Anemia 04/12/2018 Insomnia, unspecified 12/17/2015 Intrinsic eczema 09/02/2017 Prostate cancer (HCC) 11/02/2017 Pure hypercholesterolemia 12/17/2015 Lumbar back pain 03/17/2016 Primary osteoarthritis of left shoulder 03/17/2016 Dyspnea, unspecified 12/02/2018 Acute sinusitis 07/04/2020 Callus of toe 02/07/2019 Onychomycosis of toenail 05/02/2018 Pain in toe 07/04/2020 Paronychia of toe of right foot 11/06/2019 Sleep disorder 05/02/2018 Asthma 05/02/2018 Arthritis 05/02/2018 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[facility]) 07/27/2022 Encounter for Medicare annual wellness exam 07/28/2022 Spinal stenosis of lumbar region with neurogenic claudication 08/19/2022 Radiculopathy, lumbosacral region 08/19/2022 Balance problem 09/15/2022 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 behavioral disturbance, psychotic disturbance, mood disturbance, or anxiety ([facility]) 10/26/2022 Resolved Ambulatory Problems Diagnosis Date Noted Gastro-esophageal reflux disease without esophagitis 12/17/2015 Elevated blood pressure reading 12/08/2018 Past Medical History: Diagnosis Date Anxiety Cancer (CMS/HCC) ([facility]) 2017? GERD (gastroesophageal reflux disease) Heart disease Hyperlipidemia Insomnia Osteoporosis Personal history of other diseases of the respiratory system Rheumatic fever Sleep apnea Diagnosed years ago - not sure if it's still pertinent Sleep difficulties Social History Tobacco Use Smoking status: Former Types: Pipe Quit date: 11/28/1979 Years since quittin.7 Smokeless tobacco: Never Substance and Sexual Activity Drug use: Never Sexual activity: Not Currently control/protection: None Alcohol Use: Not At Risk (07/26/2023) AUDIT-C Frequency of Alcohol Consumption: Never Average Number of Drinks: Patient does not drink Frequency of Binge Drinking: Never R MILL SUPERVISOR documented in this encounter Plan of Treatment Not on file documented as of this encounter Visit Diagnoses Diagnosis Alzheimer's disease (HCC)- Primary Alzheimer's disease Abnormality of gait and mobility documented in this encounter Historical Medications * This list may reflect changes made after this encounter. Medication Sig Dispense Quantity Refills Last Filled Start D ate End Date terbinafine (LamiSIL) 250 mg tablet 08/30/2023 01/26/2024 added in this encounter Care Teams Sas Clinical Programmer Relationship Specialty Start Date End Date Sohan Rojas MD [address] [place] [address] PCP - General Family Medicine 07/10/22 Lamin Mcgraw MD [address] [place] [address] Consulting Physician Urology 07/27/22 Manuel Chowdhury MD [address] [place] [address] Consulting Physician Neurology 01/21/23 [place] [address] [address] [place] [address] Consulting Physician Neurology 01/21/23 documented as of this encounter
--- OUTSIDE RECORDS SUMMARY | 2024-08-07 02:24 | XMS_ITS | Encounter Summary ---
Author Organization [facility] Address [address] [place] [address] Phone Care Team Providers Care Sanding Machine Buffer Name Role Phone Sohan Rojas MD Primary Care Provider Lamin Mcgraw MD Unavailable [phone] Manuel Chowdhury MD Unavailable Shahrzad SONI MD, Sea Juarez Unavailable Reason for Visit * Reason Onset Date Comments Treatment Plan Update 07/29/2023 Encounter Details Date Type Department Care Team (Late st Contact Info) Description 07/29/2023 Telephone [place] [id number] [facility] [address] Floor [address] [place] [address] Nathan Nj CMA Treatment Plan Update Social History Tobacco Use Types Packs/Day Years [...] and Family Twice a week 05/31/2019 Attends Mormonism Services Never 05/31 Active Member of Clubs [...] staff should administer the PHQ-9) 0 07/26/2023 [facility] Occupat ional Health - Occupational [...] on file Legal Sex Male 8:20 PM DIAGNOSTIC TECHNOLOGIST Gender Identity Male 03/24/2021 7:53 PM CDT Sexual Orientation Straight 03/24/2021 7: 53 PM CDT Occupation Industry Job Start Date Job End Date retired Not on file Not on file Not on file documented as of this encounter Miscellaneous Notes * Telephone Encounter - Nathan Nj CMA - 07/30/2023 11:49 AM DIAGNOSTIC TECHNOLOGIST Sent F[employer] message to let Dominga know that the Lexapro was ordered and that they can pick it up from the pharmacy NOSTIC TECHNOLOGIST * Telephone Encounter - Nathan Nj CMA - 07/29/2023 12:19 PM DIAGNOSTIC TECHNOLOGIST Dominga is calling to find out if she should still cut the pt's donepezil in half ,and if provider is still going to put pt on medication for anxiety? They need to know what to do, because they haven't heard anything. NOSTIC TECHNOLOGIST documented in this encounter Plan of Treatment Not on file documented as of this encounter Visit Diagnoses Not on filedocumented in this encounter Care Teams Sanding Machine Buffer Relationship Specialty Start Date End Date Sohan Rojas MD [address] [facility] [address] [place] [address] PCP - General Family Medicine 07/10/22 Lamin Mcgraw MD [address] [place] [address] Consulting Physician Urology 07/27/22 Manuel Chowdhury MD [address] [place] [address] Consulting Physician Neurology 01/21/23 [place] [address] [address] [place] [address] Consulting Physician Neurology 01/21/23 documented as of this encounter
--- OUTSIDE RECORDS SUMMARY | 2024-08-07 02:24 | XMS_ITS | Encounter Summary ---
Author Organization [facility] Address [address] [place] [address] Phone Care Team Providers Care Salvage Mechanic Name Role Phone Sohan Rojas MD Primary Care Provider [phone] Lamin Mcgraw MD Unavailable [phone] Manuel Chowdhury MD Unavailable Shahrzad SONI MD, Carlos M. Unavailable [phone] Reason for Visit * Consultation (Routine) - Closed Specialty Diagnoses / Procedures Referred By Contac t Referred To Contact Neurology Diagnoses 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 behavioral disturbance, psychotic disturbance, mood disturbance, or anxiety (HCC) [place] [address] [facility] [address] [place] [address] Phone: tel: fax: Johan Christie MD [address] [place] [address] Phone: tel: fax:[phone] Referral ID Status Reason Start Date Expiration Date V isits Requested Visits Authorized [id number] Closed Specialty Services Required 04/08/2023 05/07/2024 1 1 Encounter Details Date Type Department Care Team (Late st Contact Info) Description 06/15/2023 3:00 PM SAMPLE SELECTOR Office Visit [facility] [address] [place] [address] 6th [place] [address] [place] [address] Huber Mg MD [address] [place] [address] 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 behavioral [...] and Family Twice a week 05/31/2019 Attends Spiritism Services Never 05/31 Active Member of Clubs or Organizations No 05/31/2019 Attends Club or Organization Meetings Never 05/31/2019 Marital Status 05/31/2019 AUDIT-C Answer Date Recorded Q1: How often do you have a drink containing alcohol? Never 03/12/2023 Q2: How many drinks containi ng alcohol do you have on a typical day when you are drinking? Patient does not drink 3 Q3: How often do you have si x or more drinks on one occasion? Never 03/12/2023 Overall Financial Resource Strain (CARDIA) Answe r Date Recorded Difficulty of Paying Living Expenses Not hard at all 05/31/2019 PHQ-2 Answer Date Recorded PHQ-2 Total Score (If total score is 3 or more points, staff should administer the PHQ-9) 0 01/21/2023 [facility] [place] of Occupat ional Health - Occupational Stress [...] on file Legal Sex Male 8:20 PM SAMPLE SELECTOR Gender Identity Male 03/24/2021 7:53 PM CDT Sexual Orientation Straight 03/24/2021 7: 53 PM CDT Occupation Industry Job Start Date Job End Date retired Not on file Not on file Not on file documented as of this encounter Last Filed Vital Signs Vital Sign Reading Time Taken Comments Blood Pressure 134/72 06/15/2023 2:45 PM SAMPLE SELECTOR Pulse 59 06/15/2023 2:45 PM SAMPLE SELECTOR Temperature - - Respiratory Rate - - Oxygen Saturation - - Inhaled Oxygen Concentration - - Weight 72.1 kg (159 lb) 06/15/2023 2:45 PM SAMPLE SELECTOR Height 175.3 cm (5' 9 ) 06/15/2023 2:45 PM SAMPLE SELECTOR Body Mass Index 23.48 06/15/2023 2:45 PM SAMPLE SELECTOR documented in this encounter Patient Instructions * Patient Instructions* Huber Mg MD - 06/15/2023 3:00 PM SAMPLE SELECTOR Primary Diagnosis: Dementia-Etiology Unclear. Alzheimer's disease is possible, but his CSF studies are equivocal with the ratio right below the cut-off for AD and his tau and p-tau levels are normal.I will check with my Neurology colleague about the possibility of obtaining a PrecivityAD blood test or Amyloid PET scan to further rule in or rule out this diagnosis. The possibility of an Alzheimer' s disease mimic is also raised. With his gait difficulties, incontinence and cognitive decline NPH is a possibility. His MRI does show large ventricles but his atrophy and moderate amount of white matter disease may simply reflect an ex vacuo situation. I did offer the patient a referral to [facility] for an evaluation. However, he is not convinced he would consider brain surgery and his daughter is not convinced he would consider a three day inpatient evaluation with an LP drain. They will continue to discuss and call us back if they desire a referral. In the meantime, I suggest reducing his donepezil to 5 mg a day due to his bowel incontinence and urgency. They will call intwo weeks since we may consider low dose SSRI for some of his anxiety and obsessive compulsive behaviors. I recommend based on the current level of dementia severity that the patient is treated with monotherapy with a cholinesterase inhibitor. The patient does not appear to be a candidate for memantine at this time, which we typically reserve for more moderate to severe disease. If the patient is eventually started or is currently on memantine and has an estimated creatinine clearance below 30mg/dl, the dose should be no higher than 5mg po bid. If renal function deteriorates below 5mg/dl or if the patient should ever require dialysis, memantine should be discontinued. We recommended the continued practice and/or adoption of healthy lifestyle behaviors which also have the potential to slow cognitive decline and include; daily cognitive and social stimulation, proper nutrition, daily physical activity as tolerated, and the continued identification and management of risk factors for atherosclerosis or vascular disease. We always suggest to any of our patients with a diagnosis of dementia to utilize the excellent resources of the Alzheimer's Association, if there is an underlying dementing illness. A caregiver support group can also be helpful to assist, if needed. We recommend to all caregivers of patients with memory loss or dementia to obtain a copy and review the very useful book, The 36 Hour Day. The [facility] will do home visits as will several excellent gerontological care managers that are available at [employer] or [employer]. #2 Level of care. We recommend the patient continue to have oversight or supervision of meals, medication administration, and finances. We suggest they continue their current level of care. We recommend the patient no longer drives. We would suggest a follow up in our clinic in 6 months. My total encounter time on 06/15/2023 was 60 minutes which was spent in the activities documented in the note. This includes time spent prior to the visit and after the visit in direct care of the patient. This time does not include time spent in any separately reportable services. We also remain a resource for issues related to caregiver stress, management of difficult behaviors, and for clinical research trials. The Memory and Aging Project at has longitudinal studies, provides yearly assessments for those that qualify in a research setting. They usually have active research trials. Their phone number is [phone]. Another source for cognitive trials can be found on the Alzheimer's Association TrialMatch website. I have a collaborative practice with SULEMAN Hansen and SULEMAN Rainey. Our typical plan is to alternate visits every six months to one year depending on cognitive stability or decline. Don't hesitate to contact us if there are any questions or concerns regarding our recommendations. The phone number for our [facility] is [phone]. Tammy Jackson RN is the Director and Head Nurse of our [facility] clinic. Thank you for allowing us to participate in the care. Huber Mg MD [employer] Arie Arnold Professor of Geriatric Medicine tow driver and Neurology Clinical Director, Division of Geriatrics and Nutritional Science Pricer Bagger, [facility] Clinician Address: [address] [place] [address] LE SELECTOR documented in this encounter Progress Notes * Huber Mg MD - 06/15/2023 3:00 PM CST [facility] Office Note Subjective Patient is a 83 y.o. male with a chief complaint of cognitive decline HPI: Mr. Johnston is a 83 y.o. right handed gentleman who comes to the [facility] today accompanied by his daughter Dominga who serves as collateral source (CS). The CS sees him daily. He is in generally fair health. He lives independently in a house. 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 The CS states there has been gradual onset and gradual cognitive decline for the past few years. She has noticed decline in cognition and he becomes fixated on things and worries. He is worried all of his pipes are going to burst and he runs the hot water frequently. He will not listen to reason. He is not consistently taking his medications. He has more trouble at night. He has trouble with technologies around the house. The CS states patient does forget new information in a conversation. The patient does repeats questions or statements. Language expression is intact. Language comprehension is intact. There have beensignificant changes in personality of behavior. He is more worry. The ability to focus or attentional abilities have not declined. Visuospatial skills have not declined. There is a family history for dementia. There is no history of CVA. There are no signs or symptoms of Parkinsonism. There is no history of alcohol intake. There is no history of head trauma. There isno evidence of psychosis. There is a history of urinary incontinence. There are new gait and balance problems. He shuffles when he walks. This could be related to his weakness. There is no depression. There is no history of recurrent falls. He has had occasional falls and his leg may give out. There is a history of hypersomnolence. There is a history of prostate cancer. There is a history of weight loss. But this has been mild. There is no history of seizure disorder. The patient keeps up with their personal hygiene. The patient does participate in keeping the house/apt tidy at their usual level. The CS states the patient never cooked. There is no decline in the ability to use technologies (e.g. Cell phone, TV remote and/or computers). The CS states the patient can still do laundry and do dishes.The patient does not keep up with their personal finances. The daughter took it over a couple of years ago. The CS states the patient no longer drives. He was getting lost while driving. The CS states the patient ability to shop is intact. The CS states the patientneeds oversight for medications. The patient states there are problems and a new decline in memory and thinking. The patient does not endorse declines in their IADL's.The patient is not aware of the medical diagnoses and/or medications he/she is currently taking. The patient denies side effects related to antidementia agents. Past Medical History: Diagnosis Date Anxiety Arthritis Asthma Cancer ([facility]) (HCC) 2018? GERD (gastroesophageal reflux disease) Heart disease Hyperlipidemia Insomnia Osteoporosis Personal history of other diseases of the respiratory system Personal history of asthma - (Added by VIRAL Conv) Rheumatic fever Sleep apnea Diagnosed years ago - not sure if it's still pertinent Sleep difficulties Past Surgical History: Procedure Laterality Date [place] FLUORO GUIDED LUMBAR PUNCTURE Right 03/12/2023 FOOT SURGERY Foot Surgery - (Added by TW Conv) LUMBAR DISC SURGERY Spinal Diskectomy Lumbar - (Added by TW Conv) [place] TONSILLECTOMY PRIMARY/SECONDARY <AGE 14 Tonsillectomy - (Added by TW Conv) PROSTATE CANCER GENE 3 (PCA3) SPINE SURGERY Current Outpatient Medications: albuterol HFA (PROVENTIL HFA,VENTOLIN [...] by mouth nightly, Disp: 90 tablet, Rfl: 1 finasteride (PROSCAR) 5 mg tablet, Take 1 tablet (5 mg total) by mouth daily, Disp: 90 tablet, Rfl:1 fluticasone propionate (FLONASE) 50 mcg/actuation nasal spray, Administer 2 sprays into each nostril daily, Disp: 3 each, Rfl: 4 omega 8-vic-hzl-fish oil 360-1,200 mg capsule,delayed release(DR/EC), Take 1 capsule by mouth daily, Disp: , Rfl: omeprazole (PriLOSEC) 20 mg capsule, TAKE 1 CAPSULE BY MOUTH EVERY DAY, Disp: 100 capsule, Rfl: 0 tamsulosin (FLOMAX) 0.4 mg extended release capsule, Take 1 capsule (0.4 mg total) by mouth daily, Disp: 90 capsule, Rfl: 1 vitamin b complex (Vitamins B Complex) tablet, Take 1 tablet by mouth daily, Disp: , Rfl: vitamin E (AQUASOL E) 1,000 unit capsule, Take 5 capsules (5,000 Units total) by mouth daily, Disp:, Rfl: lecithin 1,200 mg capsule, Take 1 capsule by mouth 2 (two) times a day (Patient not taking: Reported on 06/15/2023), Disp: , Rfl: mometasone 50 mcg/actuation HFA aerosol inhaler, Inhale (Patient not taking: Reported on 06/15/2023), Disp: , Rfl: peg 400-propylene glycol (SYSTANE) 0.4-0.3 % ophthalmic solution, Administer 1 drop into both eyes as needed (Patient not taking: Reported on 06/15/2023), Disp: , Rfl: Allergies Allergen Reactions Other Sneezing Seasonal allergies Social History Tobacco Use Smoking status: Former Types: Pipe Quit date: 11/28/1979 Years since quittin.5 Smokeless tobacco: Never Substance and Sexual Activity Drug use: Never Sexual activity: Not Currently control/protection: None Alcohol Use: Not At Risk (03/12/2023) AUDIT-C Frequency of Alcohol Consumption: Never Average [...] disease Paternal Grandmother Memory loss Paternal Grandmother Review of Systems General Patient/Informant report there are no issues with fever, sweats, weight loss, or anorexia HEENT Patient/Informant report there are no issues with diplopia, dysphagia, hearing loss, visual decline. There is no history of thyroid disorder. CARDIAC Patient/Informant report there are no issues with chest pain, shortness of breath, palpitations or valvular heart disease. PULMONARY Patient/Informant report there are no issues with cough, sputum production, wheezing, COPD, emphysema or exposure to TB. GENITOURINARY Patient/Informant report there are no issues with incontinence, urgency, frequency. HEMATOLOGIC/LYMPHATIC Patient/Informant report there are no issues with easy bruising, bleeding, anemia. GASTROINTESTINAL Patient/Informant report there are no issues with nausea, vomiting, abdominal pain, diarrhea, constipation. ENDOCRINE Patient/Informant report there are no issues with thyroid problems, low or high blood sugar, heat intolerance. MUSCULOSKELETAL Patient/Informant report there are no issues with joint swelling, tenderness, history of rheumatoidarthritis, history of degenerative joint disease or fracture. SKIN Patient/Informant report there are no issues with rashes, lesions, itching or hives. PSYCHIATRIC Patient/Informant report there are no issues with depression, psychosis, delusions, hallucinations or anxiety. NEUROLOGICAL Patient/Informant report there is not a history of head trauma, stroke, TIA, Parkinson's disease, tremor, shuffling, gait, balance abnormality, or coordination decline. Objective Vitals: BP 134/72 (BP Location: Left arm, Patient Position: Sitting) Pulse 59 Ht 175.3 cm (5' 9 ) Wt 72.1 kg (159 lb) BMI 23.48 kg/m?? Physical exam: The neck was supple without adenopathy and the carotid were clear to auscultation. Thyroid was within normal limits. Oral pharyngeal exam was within normal limits. Lungs were clear to auscultation. Heart auscultation was within normal limits. Abdominal exam was within normal limits. Joint exam was within normal limits. NEUROLOGICAL EXAMINATION MENTAL STATUS/HIGHER CORTICAL FUNCTION Affect was within normal limits. Conversational language was normal. CRANIAL NERVES Visual chapa were full. Possible bilat ptosis. Extraocular movements were within normal limits. The face is not symmetric with slight decrease right NL fold. Hearing is normal. The palate elevated normally. Neck muscles were strong. The tongue did move normally. MOTOR Muscle strength was within normal limits. Muscle tone was within normal limits. Muscle mass was within normal limits. There were no fasciculations. There was no evidence of action tremor when testingFTN. There was no evidence of resting tremor. SENSATION Superficial light touch was intact. COORDINATION Finger to nose wnl. GAIT AND BALANCE The patient had a short step height and short step length gait. Balance testing was normal althoughthere was some sway. REFLEXES Reflexes were graded as slightly increased and symmetric. There was a bilat PM reflex. Lab/Radiology/Diagnostic Review: No results found for: [id number] Lab Results Component Value Date TSH 2.48 01/29/2023 Lab Results Component Value Date WBC 5.8 01/29/2023 HGB 13.3 01/29/2023 HCT 37.9 (L) 01/29/2023 MCV 94.0 01/29/2023 LABPLAT 171 01/29/2023 Lab Results Component Value Date GLUCOSE 102 01/29/2023 CALCIUM 9.5 01/29/2023 SODIUM 141 01/29/2023 POTASSIUM 4.1 01/29/2023 CO2 26 01/29/2023 CHLORIDE 107 01/29/2023 BUNSER 18 01/29/2023 CREATININE 0.90 01/29/2023 Lab Results Component Value Date ALT 32 01/29/2023 AST 22 01/29/2023 ALKPHOS 58 01/29/2023 BILITOT 0.5 01/29/2023 NEUROBEHAVIORAL TESTING REPORT Verbal Fluency Score (total # animals): 7 [place] Naming Test 15 Item [place] Naming Total Score (out of 15): 14 Mini-Mental Total Score ((out of 30): 24 Memory Task (total score out of 30): 6 Word List Recall (total score out of 10): 0 Logical Memory Total Score (out of 25): 0 Patient completed Trails A in (seconds): 68 Trails A # of errors: 0 Digit symbol Total Score (out of 90): 35 The total time to administer psychometric testing today was 27 minutes. Psychometric testing revealed severe impairment in episodic memory, mild impairment in semantic memory, and moderate impairment in executive function. My interpretation and reporting of test results took a total of 5 minutes. Clinical Dementia Rating is 0.5 or very mild dementia 12/03/22 EXAM DESCRIPTION: MRI BRAIN WO CONTRAST REASON FOR STUDY: Memory Loss Pt's family has noticed a gradual decline in cognitive function over the past few years since the patient's past. He has been reported to repeat himself over and over again. He forgets to take his nighttime medication. He also has been having increasing confusion as to where he is in when he saw his primary care in July of 2022 he was diagnosed with a dementia. The patient does not manage his own finances his daughter has taken over the finances over the past 2-3 years because he is forgotten to pay bills he is gotten confused on managing his finances. He also has poor sleep. There is a family history of Alzheimer's disease. TECHNIQUE: Multiplanar imaging includes non-contrasted T1, T2, FLAIR, and diffusion with ADC map sequences. Additional sequence(s) sensitive to blood products. Images stored on PACS. COMPARISON: None available. FINDINGS: CEREBRUM: No hemorrhage, edema, or mass effect. WHITE MATTER: There are scattered bilateral subcortical and periventricular supratentorial white matter T2/FLAIR hyperintense foci, most compatible with mild chronic small vessel ischemic changes. POSTERIOR FOSSA: Brainstem and cerebellum appear unremarkable. DIFFUSION IMAGING: No recent infarction. EXTRAAXIAL SPACES: No hemorrhage. No mass. BRAIN VOLUME: The ventricles and sulci are mild to moderately enlarged commensurate with global cerebral parenchymal volume loss. PITUITARY: Unremarkable. VASCULATURE: No flow disturbance identified. ORBITS: Right lens replacement noted. No masses. Globes normal. PARANASAL SINUSES AND MASTOIDS: Well-aerated with no fluid levels. No mucosa thickening. OTHER: No other significant finding. IMPRESSION: 1. No acute intracranial abnormality. 2. Findings consistent with sequela of mild chronic ischemic microangiopathy and [id number] global parenchymal atrophy. THIS IS AN ELECTRONICALLY VERIFIED FINAL REPORT 12/24/2022 7:27 PM - Electronically signed by Steven Hartley M.D. MF: TRISTAN Report ID: [id number] Reading Location: [id number] Primary Diagnosis: Dementia-Etiology Unclear. Alzheimer's disease is possible, but his CSF studies are equivocal with the ratio right below the cut-off for AD and his tau and p-tau levels are normal.I will check with my Neurology colleague about the possibility of obtaining a PrecivityAD blood test or Amyloid PET scan to further rule in or rule out this diagnosis. The possibility of an Alzheimer' s disease mimic is also raised. With his gait difficulties, incontinence and cognitive decline NPH is a possibility. His MRI does show large ventricles but his atrophy and moderate amount of white matter disease may simply reflect an ex vacuo situation. I did offer the patient a referral to [facility] for an evaluation. However, he is not convinced he would consider brain surgery and his daughter is not convinced he would consider a three day inpatient evaluation with an LP drain. They will continue to discuss and call us back if they desire a referral. In the meantime, I suggest reducing his donepezil to 5 mg a day due to his bowel incontinence and urgency. They will call intwo weeks since we may consider low dose SSRI for some of his anxiety and obsessive compulsive behaviors. I recommend based on the current level of dementia severity that the patient is treated with monotherapy with a cholinesterase inhibitor. The patient does not appear to be a candidate for memantine at this time, which we typically reserve for more moderate to severe disease. If the patient is eventually started or is currently on memantine and has an estimated creatinine clearance below 30mg/dl, the dose should be no higher than 5mg po bid. If renal function deteriorates below 5mg/dl or if the patient should ever require dialysis, memantine should be discontinued. We recommended the continued practice and/or adoption of healthy lifestyle behaviors which also have the potential to slow cognitive decline and include; daily cognitive and social stimulation, proper nutrition, daily physical activity as tolerated, and the continued identification and management of risk factors for atherosclerosis or vascular disease. We always suggest to any of our patients with a diagnosis of dementia to utilize the excellent resources of the Alzheimer's Association, if there is an underlying dementing illness. A caregiver support group can also be helpful to assist, if needed. We recommend to all caregivers of patients with memory loss or dementia to obtain a copy and review the very useful book, The 36 Hour Day. The [facility] will do home visits as will several excellent gerontological care managers that are available at [employer] or [employer]. #2 Level of care. We recommend the patient continue to have oversight or supervision of meals, medication administration, and finances. We suggest they continue their current level of care. We recommend the patient no longer drives. We would suggest a follow up in our clinic in 6 months. My total encounter time on 06/15/2023 was 60 minutes which was spent in the activities documented in the note. This includes time spent prior to the visit and after the visit in direct care of the patient. This time does not include time spent in any separately reportable services. We also remain a resource for issues related to caregiver stress, management of difficult behaviors, and for clinical research trials. The Memory and Aging Project at has longitudinal studies, provides yearly assessments for those that qualify in a research setting. They usually have active research trials. Their phone number is [phone]. Another source for cognitive trials can be found on the Alzheimer's Association TrialMatch website. I have a collaborative practice with SULEMAN Hansen and SULEMAN Rainey. Our typical plan is to alternate visits every six months to one year depending on cognitive stability or decline. Don't hesitate to contact us if there are any questions or concerns regarding our recommendations. The phone number for our [facility] is [phone]. Tammy Jackson RN is the Director and Head Nurse of our [facility] clinic. Thank you for allowing us to participate in the care. Huber Mg MD [employer] Arie Anrold Professor of Geriatric Medicine tow driver and Neurology Clinical Director, Division of Geriatrics and Nutritional Science Pricer Bagger, [facility] Clinician Address: [address] [place] [address] LE SELECTOR documented in this encounter Plan of Treatment Not on file documented as of this encounter Visit Diagnoses Diagnosis 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 behavioral disturbance, psychotic disturbance, mood disturbance, or anxiety (HCC) documented in this encounter Orders Outpatient Referral Count Last Ordered Date st Ordered Date AMB REFERRAL TO NEUROLOGY 1 06/15/2023 documented in this encounter Care Teams Salvage Mechanic Relationship Specialty Start Date End Date Sohan Rojas MD [address] [place] [address] PCP - General Family Medicine 07/10/22 Lamin Mcgraw MD [address] [place] [address] Consulting Physician Urology 07/27/22 Manuel Chowdhury MD [address] [place] [address] Consulting Physician Neurology 01/21/23 [place] [address] [facility] [address] [address] Consulting Physician Neurology 01/21/23 documented as of this encounter
--- OUTSIDE RECORDS SUMMARY | 2024-08-07 02:24 | XMS_ITS | Encounter Summary ---
Author Organization [facility] Address [address] [place] [address] Phone Care Team Providers Care Investigations Director Name Role Phone Sohan Rojas MD Primary Care Provider Lamin Mcgraw MD Unavailable Manuel Chowdhury MD Unavailable Shahrzad SONI MD, Sea Juarez Unavailable Anand Herrera MD Unavailable Encounter Details Date Type Department Care Team (Late st Contact Info) Description 01/12/2024 Telephone [facility] Scheduling [address] [place] [address] Cherry Ferrara Social History Tobacco Use Types Packs/Day Years [...] and Family Twice a week 05/31/2019 Attends Muslim Services Never 05/31 Active Member of Clubs [...] staff should administer the PHQ-9) 0 01/26/2024 [facility] - Occupational Stress [...] on file Legal 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 Below says it was sent via the portal but unable to find that. Please contact Dominga with information * Telephone Encounter - Rosalina Jones CMA - 04/24/2024 4:52 PM CDT After [id number] Approved * Telephone Encounter - Rosalina Jones CMA - 04/21/2024 2:14 PM CDT Tiffany from [facility] called back P2P scheduled for 04/21/24 at 3:[address] Newton * Telephone Encounter - Rosalina Jones CMA - 04/21/2024 12:57 PM CDT Sent message to Lashanda to see if Dr Herrera is available today for P2P. She states he's in clinic and should be able to take a call. Called and left message for Deepali Thomas nurse of Dr Herrera' availability today before 4 pm. * Telephone Encounter - Leonora Carpenter - 04/21/2024 9:52 AM CDT Insurance letter regarding [id number] scanned into chart * Telephone Encounter - Rosalina Jones CMA - 04/20/2024 8:18 AM CDT Received call from nurse at [facility] [phone] [id number] Requested notes be faxed to [phone] Faxed clinical. * Telephone Encounter - Rosalina Jones CMA - 04/17/2024 8:20 AM CDT Called Deepali [phone], spoke to automated Date: 04/24/24 DX: R41.3 CPT code: 28612 Provider: Javier Location: [facility] Case #: [id number] Call ref # [id number] * Telephone Encounter - Rosalina Jones CMA - 04/13/2024 2:34 PM CDT Called Mirandakeisha [phone], spoke to Giancarlo Date: 04/24/24 DX: R41.3 CPT code: 57730 Provider: Javier Location: [facility] Case #: [id number] Nurse to call for clinical Call ref # [id number] * Telephone Encounter - Rosalina Jones CMA - 04/13/2024 2:22 PM CDT Original case was voided. * Telephone Encounter - Rosalina Jones CMA - 04/11/2024 12:21 PM CDT Called Deepali [phone], spoke to Date: 04/24/24 DX: R41.3 CPT code: 11656 Provider: Javier Location: [facility] Case #: [id number] Nurse to call for clinical Call ref # [id number] * Telephone Encounter - Frannie Lau RN - 03/31/2024 12:20 PM CDT Discussed with patients daughter, she is agreeable to 04/24. Notified admitting and IP team about LD trial. Admission details and instructions sent via patient portal and daughter aware to review. * Telephone Encounter - Frannie Lau RN - 03/31/2024 12:19 PM CDT NS Admission Surgical: []Yes [x]NO Date: 04/24/2024 Non-surgical: []Yes []NO Date: Reason for Admission: lumbar drain trial Consults needed: []Yes [x]NO Resident notified:[]Yes [x]NO [id number] Transport notified:{[]Yes [x]NO Completed surgery Packet received:[]Yes [x]NO The following information is needed for calling Admission [phone] Does patient have the following: []Yes [x]No LVAD []Yes [x]No Tracheostomy []Yes [x]No Peritoneal dialysis []Yes [x]No Home IV medication []Yes [x]No Need Isolation Lumbar drain trial on 04/24. * Telephone Encounter - Wanda Le - 03/30/2024 10:24 AM CDT Pt's daughter called to schedule apt for lumbar drain procedure. Please assist, Ty. * Telephone Encounter - Ana Valdez - 01/31/2024 10:37 AM CDT Pt's family member called saying they are on their way but will not be able to come in early due toheavy traffic and had a stop. * Telephone Encounter - Ana Valdez - 01/14/2024 9:52 AM CDT Pt's daughter called to schedule appt for NPH. As per Tally, next is Dr. Herrera. Reason for visit: New Pt Appt Date: 01/31/2024 Time: 11:30am Location: [facility] Provider Dr. Herrera Routed: Dr. Herrera Pt is not able to take sooner date. * Telephone Encounter - Magnolia Barrios - 01/13/2024 3:26 PM CDT Called to schedule but they were unable to speak As per tally please schedule with for NPH * Telephone Encounter - Magnolia Barrios - 01/13/2024 8:14 AM CDT Please review, as unsure who would see patient for this diagnosis, referral from our neurology Thank you Department of Neurological Surgery at [facility] Cranial Intake Sheet 01/13/24 [place] 1940 [id number] Sohan Rojas MD Are you a New or Returning Pt? new Referring physician Neurologist Referred to: First Available: Second Opinion: No Are you planning or are you scheduled for brain surgery elsewhere? No If Yes: Where , When , and with Who Diagnosis: 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 behavioral disturbance, psychotic disturbance, mood disturbance, or anxiety (HCC) (G30.1,F02.B0) Abnormality of gait and mobility (R26.9) Insurance: Medicare: Name of Plan [employer] medicare Are we contracted? Yes Does this insurance require an insurance auth from the PCP? Yes Has the patient had brain surgery within the last year? No Blurred Vision: No Loss of Sight: No Weakness on one side of body or a particular area: Yes - legs Loss of bowel or bladder control: Yes Duration of symptoms: Prior brain surgery within last 10 years: No Destination Medicine: No Imaging Done within Last Year: No List ALL Imaging Location: Does the patient have any metal in their body? Like a stent or cardiac device? No * Telephone Encounter - Magnolia Barrios - 01/12/2024 3:37 PM CDT 1st attempt - no answer, LVM Dx: 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 behavioral disturbance, psychotic disturbance,mood disturbance, or anxiety (HCC) (G30.1,F02.B0) Abnormality of gait and mobility (R26.9) documented in this encounter Plan of Treatment Not on file documented as of this encounter Visit Diagnoses Not on filedocumented in this encounter Care Teams Investigations Director Relationship Specialty Start Date End Date Sohan Rojas MD [address] [facility] [address] [place] [address] PCP - General Family Medicine 07/10/22 Lamin Mcgraw MD [address] [place] [address] Consulting Physician Urology 07/27/22 Manuel Chowdhury MD [address] [place] [address] Consulting Physician Neurology 01/21/23 [place] [address] [facility] [address] [place] [address] Consulting Physician Neurology 01/21/23 Anand Herrera MD [address] [place] [address] Consulting Physician Neurosurgery 01/26/24 documented as of this encounter
--- OUTSIDE RECORDS SUMMARY | 2024-08-07 02:24 | XMS_ITS | Encounter Summary ---
Author Organization [facility] Healthcare Address [address] [place] [address] Care Team Providers Care Route Process Administrator Name Role Phone Sohan Rojas MD Primary Care Provider [phone] Lamin Mcgraw MD Unavailable [phone] Manuel Chowdhury MD Unavailable Shahrzad SONI MD, Carlos M. Unavailable [phone] Reason for Visit * Reason Onset Date Comments Ear Fullness 07/30/2023 Encounter Details Date Type Department Care Team (Late st Contact Info) Description 07/30/2023 Nurse Triage [facility] Medical Group Primary Care at [address] [address] Sohan Rojas MD [address] [place] [address] [address] [place] [address] Social History Tobacco Use Types Packs/Day Years [...] and Family Twice a week 05/31/2019 Attends Taoism Services Never 05/31 Active Member of Clubs [...] staff should administer the PHQ-9) 0 07/26/2023 [facility] Occupat ional Health - Occupational Stress Questionnaire [...] on file Legal 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 He feels as if his ears are clogged. He is also a bit off balance upon standing and believes this to be due to his ears. He is taking dayquil/sinus medications with no relief. Patient advised to be seen. Daughter requests Sohan Rojas MD prescribe a medication. RN discussed with patient due to time of day it would be best to schedule a VCC incase Sohan Rojas MD is unable to contact patient back by the end of the day. Patient's daughter is in agreement. Patient's daughter stated that either she or her brother, Ashley, will be there to assist with VCC. Call-back number for patient: Dominga - Ashley - Patient's daughter asking for prescription since patient was just seen in office. Reason for Disposition Ear congestion present > 48 hours Protocols used: Ear - [id number] * Telephone Encounter - Nicolasa Salomon RN - 07/30/2023 1:37 PM CST Regarding: unbalanced, ears clogged ----- Message from Cathleen Flores sent at 07/30/2023 1:36 PM REINFORCING ROD LAYER ----- Symptom Based Call Chief Complaint(s): unbalanced, ears clogged Duration: a week What type of symptom(s) is the patient experiencing? Non-Emergent. Is this a new or reoccurring symptom(s)? new What have you tried to help your symptom(s)? OTC sinus medication, dayquil Why was appointment not scheduled? Requesting advice from clinical steamblaster. Additional Comments: Patient's daughter calling stating that pt had an appt on Wednesday and he forgotto mention symptoms. She said that she is hoping provider can prescribed medication since patient was just seen in office. Does message need to be routed? Yes-Action Needed FORCING ROD LAYER documented in this encounter Plan of Treatment Not on file documented as of this encounter Visit Diagnoses Not on filedocumented in this encounter Care Teams Route Process Administrator Relationship Specialty Start Date End Date Sohan Rojas MD [address] [facility] [address] [place] [address] PCP - General Family Medicine 07/10/22 Lamin Mcgraw MD [address] [place] [address] Consulting Physician Urology 07/27/22 Manuel Chowdhury MD [address] [place] [address] Consulting Physician Neurology 01/21/23 [place] [address] [facility] [address] [place] [address] Consulting Physician Neurology 01/21/23 documented as of this encounter
--- OUTSIDE RECORDS SUMMARY | 2024-08-07 02:24 | XMS_ITS | Encounter Summary ---
Author Organization [facility] Healthcare Address [address] [place] [address] Care Team Providers Care Operating Room Tech Name Role Phone Sohan Rojas MD Primary Care Provider [phone] Lamin Mcgraw MD Unavailable [phone] Manuel Chowdhury MD Unavailable Shahrzad SONI MD, Carlos M. Unavailable Reason for Visit * Reason Comments Follow-up No concerns Encounter Details Date Type Department Care Team (Latest Contact Info) Description 07/26/2023 4:15 PM AMPOULE SEALER Office Visit [facility] Medical Group Primary Care at [address] [address] Sohan Rojas MD [address] [place] [address] [address] [place] [address] Pure hypercholesterolemia (Primary Dx); Gastroesophageal reflux disease with esophagitis [...] Recorded Fear of Current or Ex-Partner No 11 / Emotionally Abused No 05/31/2019 Physically Abused No 05/31/2019 Sexually Abused No 05/31/2019 Social Connection and Isolat ion Panel [NHANES] Answer Date Recorded Frequency of Communication w ith Friends and Family More than three times a week 05/31/2019 Frequency of Social Gatherin gs with Friends and Family Twice a week 05/31/2019 Attends Restoration Services Never 05/31 Active Member of Clubs [...] staff should administer the PHQ-9) 0 07/26/2023 [facility] [place] of Occupat ional Health - Occupational Stress [...] on file Legal Sex Male 8:20 PM AMPOULE SEALER Gender Identity Male 03/24/2021 7:53 PM CDT Sexual Orientation Straight 03/24/2021 7: 53 PM CDT Occupation Industry Job Start Date Job End Date retired Not on file Not on file Not on file documented as of this encounter Last Filed Vital Signs Vital Sign Reading Time Taken Comments Blood Pressure 128/68 07/26/2023 4:20 PM AMPOULE SEALER Pulse 85 07/26/2023 4:20 PM AMPOULE SEALER Temperature 36.6 ??C (97.9 ??F) 07/26/2023 4:20 PM CS T Respiratory Rate 18 07/26/2023 4:20 PM AMPOULE SEALER Oxygen Saturation 97% 07/26/2023 4:20 PM AMPOULE SEALER Inhaled Oxygen Concentration - - Weight 71.1 kg (156 lb 11.2 oz) 07/26/2023 4:20 PM AMPOULE SEALER Height 175.3 cm (5' 9 ) 07/26/2023 4:20 PM AMPOULE SEALER Body Mass Index 23.14 07/26/2023 4:20 PM AMPOULE SEALER documented in this encounter Patient Instructions * Patient Instructions* Sohan Rojas MD - 07/26/2023 4:15 PM AMPOULE SEALER Continuing current regimen Awaiting labs, also ordered labs for 6 months out I strongly recommend you get the Shingrix vaccine; you may first call your insurance and see if thecoverage is there first (as well as where they would prefer you get it done), as it is expensive; alternatively, your pharmacy may be able to look up the coverage for you as well. Thanks for coming in today! My medical assistants and I are thankful you have trusted us with your care, and hope that you received EXCELLENT care today! Please do not hesitate to call if you have any questions or concerns at [phone]. You may receive a phone call, text, MYCHART message, or e-mail asking about your care today. We would love to hear your feedback on how EXCELLENT your care wastoday! Wishing you better health, always. Dr. Rojas ULE SEALER ULE SEALER * Attachments The following attachments cannot be sent through Care Everywhere. * DASH Eating Plan (General Information) (Mosotho) documented in this encounter Ordered Prescriptions Prescription Sig Dispense Quantity Refills Last Filled Start Date End Date donepeziL (ARICEPT) 10 mg tabletIndications: Mild to Moderate Alzheimer's Type Dementia Take 1 tablet (10 mg total) by mouth nightly 90 tablet 3 07/26/2023 4 documented in this encounter Progress Notes * Sohan Rojas MD - 07/26/2023 4:15 PM CST Images from the original note were not included. Subjective/Objective Patient ID: Gulshan Johnston is a 83 y.o. male. Chief Complaint Follow-up (No concerns ) He was supposed to get the IV treatment but Luz Maria decided he wasn't a candidate. So, he continues donepezil. Hyperlipidemia This is a chronic problem. He has no history of diabetes or obesity. Pertinent negatives include nochest pain, myalgias or shortness of breath. Current antihyperlipidemic treatment includes statins.Risk factors for coronary artery disease include male sex and dyslipidemia. GERD He reports no chest pain, no coughing, no heartburn or no wheezing. The problem occurs rarely. Pertinent negatives include no fatigue. He has [...] times a day,Disp: 180 tablet, Rfl: 3 finasteride (PROSCAR) 5 mg tablet, Take 1 tablet (5 mg total) by mouth daily, Disp: 90 tablet, Rfl:1 fluticasone propionate (FLONASE) 50 mcg/actuation nasal spray, Administer 2 sprays into each nostril daily, Disp: 3 each, Rfl: 4 omega 8-lcy-zwe-fish oil 360-1,200 mg capsule,delayed release(DR/EC), Take 1 capsule by mouth daily, Disp: , Rfl: omeprazole (PriLOSEC) 20 mg capsule, TAKE 1 CAPSULE BY MOUTH EVERY DAY, Disp: 100 capsule, Rfl: 0 Sodium Fluoride 5000 Dry Mouth 1.1 % [...] Units total) by mouth daily, Disp:, Rfl: donepeziL (ARICEPT) 10 mg tablet, Take 1 tablet (10 mg total) by mouth nightly, Disp: 90 tablet, Rfl: 3 influenza quadrivalent [id number] (Fluzone HighDose Quad 23-24 PF) 240 mcg/0.7 mL syringe, Inject 0.7 mL into the muscle as instructed once, Disp: , Rfl: varicella-zoster (SHINGRIX) 50 mcg/0.5 mL vaccine, Inject 0.5 mL into the muscle as instructed, Disp: , Rfl: Review of Systems Constitutional: Negative for fatigue and fever. HENT: Negative. Eyes: Negative. Respiratory: Negative for cough, shortness of breath and wheezing. Cardiovascular: Negative for chest pain and palpitations. Gastrointestinal: Negative. Negative for heartburn. Genitourinary: Negative. Musculoskeletal: Negative for myalgias and neck pain. Neurological: Negative for headaches. Psychiatric/Behavioral: Negative. BP 128/68 (BP Location: Left arm, Patient Position: Sitting) Pulse 85 Temp 36.6 ??C (97.9 ??F) (Oral) Resp 18 Ht 175.3 cm (5' 9 ) Wt 71.1 kg (156 lb 11.2 oz) SpO2 97% BMI 23.14 kg/m?? Physical Exam Vitals reviewed. Constitutional: Appearance: He is normal weight. HENT: Head: Normocephalic and atraumatic. Eyes: General: No scleral icterus. Cardiovascular: Rate and Rhythm: Normal rate and regular rhythm. Heart sounds: No murmur heard. No friction rub. No gallop. Pulmonary: Breath sounds: No wheezing, rhonchi or rales. Musculoskeletal: Right lower leg: No edema. Left lower leg: No edema. Neurological: Mental Status: He is alert and oriented to person, place, and time. Mental status is at baseline. Psychiatric: Mood and Affect: Mood normal. No visits with results within 1 Month(s) from this visit. Latest known visit with results is: Hospital Outpatient Visit on 03/12/2023 Component Date Value Ref Range Status Glucose, CSF 03/12/2023 59 mg/dL Final Comment: Reference Interval Information: CSF Glucose should be 60-66% of the most current plasma glucose concentration (milligrams/deciliter) CLIN. CHEM. 41/3, 343-360 (1994), Clinical Utility of Biochemical Analysis of Cerebrospinal Fluid, Efrain Miranda and Gagan Chamberlain. Current interpretive data was last revised on 2019. Tube Number, CSF 03/12/2023 Tube 3 Final Color, CSF 03/12/2023 Colorless Final Clarity, CSF 03/12/2023 Clear Final Nucleated cells, CSF 03/12/2023 <3 0 - 5 /cumm Final RBC, CSF 03/12/2023 <2,000 (H) 0 - 0 /cumm Final Protein, CSF 03/12/2023 76 (H) 5 - 45 mg/dL Final p-Tau/Abeta42 03/12/2023 0.027 <=0.028 Final Abeta42 03/12/2023 665 (L) >834 pg/mL Final Comment: ADDITIONAL INFORMATION The testing method is an electrochemiluminescence assay manufactured by [employer] Effective December 16, 2022, a formulation change was implemented in the [employer] Abeta42 reagent (Generation I to Generation II). The Elecsys B-Amyloid (1-42) CSF II assay was restandardized using certified reference materials (CRMs) ERM-DA480/-481/-482/[facility]. Internal studies indicate a reduction in measured Abeta42 concentration (an approximate 19% decrease at the reference value) under specified assay collection conditions when using the new reagent formulation. Accordingly, the reference value has been changed from >1026 pg/mL (Gen I) to >834 pg/mL (Gen II). Values obtained with different assay methods or kits may be different and cannot be used interchangeably. Total-TAU 03/12/2023 191 <=238 pg/mL Final Comment: ADDITIONAL INFORMATION The testing method is an electrochemiluminescence assay manufactured by [employer]. Values obtained with different assay methods or kits may be different and cannot be used interchangeably. This test was developed and its performance characteristics determined by [facility] in a manner consistent with CLIA requirements. This test has not been cleared or approved by the U.S. Food and Drug Administration. Phospho-Tau(181P) 03/12/2023 17.7 <=21.6 pg/mL Final Comment: ADDITIONAL INFORMATION The testing method is an electrochemiluminescence assay manufactured by [employer] Effective December 16, 2022, a formulation change was implemented in the [employer] p-Shv201 reagent (Generation I to Generation II). Internal studies indicate a slight reduction in measured p-Cnw483 concentrations under specified assay collection conditions when using the new reagent formulation. Accordingly, the reference value has been modified from < or = 21.7 pg/mL (Gen I) to < or = 21.6 (Gen II). Values obtained with different assay methods or kits may be different and cannot be used interchangeably. Test Performed by: [address] [address] Wafer Production Worker: Emiliano Sun M.D. 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 Occasional wrong-word or 'xvpfn-[id number]' substitutions may have occurred due to the inherent limitations of voice recognition software. Read the chartcarefully and recognize, using context, where substitutions have occurred. ULE SEALER documented in this encounter Plan of Treatment Not on file documented as of this encounter Visit Diagnoses Diagnosis Pure hypercholesterolemia- Primary Gastroesophageal reflux disease with esophagitis without hemorrhage 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 behavioral disturbance, psychotic disturbance, mood disturbance, or anxiety (HCC) documented in this encounter Discontinued Medications Medication Sig Discontinue Reason Start Date End Da te donepeziL (ARICEPT) 10 mg tabletIndications:Mild to Moderate Alzheimer's Type Dementia Take 1 tablet (10 mg total) by mouth nightly Reorder 12/03/2022 07/26/2023 peg 400-propylene glycol (SYSTANE) 0.4-0.3 % ophthalmic solution Administer 1 drop into both eyes as needed 07/28/2023 mometasone 50 mcg/actuation HFA aerosol inhaler Inhale 07/28/2023 lecithin 1,200 mg capsule Take 1 capsule by mouth 2 (two) times a day 07/28/2023 documented as of this encounter Historical Medications * This list may reflect changes made after this encounter. influenza quadrivalent [id number] (Fluzone HighDose Quad 23-24 PF) 240 mcg/0.7 mL syringe Inject 0.7 mL into the muscle as instructed once 4 varicella-zoster (SHINGRIX) 50 mcg/0.5 mL vaccine Inject 0.5 mL into the muscle as instructed 4 Sodium Fluoride 5000 Dry Mouth 1.1 % paste 07/23/2023 4 added in this encounter Care Teams Operating Room Tech Relationship Specialty Start Date End Date Sohan Rojas MD [address] [facility] [address] [place] [address] PCP - General Family Medicine 07/10/22 Lamin Mcgraw MD [address] [place] [address] Consulting Physician Urology 07/27/22 Manuel Chowdhury MD [address] [place], [place] [address] Consulting Physician Neurology 01/21/23 [place] [address] [facility] [address] [place] [address] Consulting Physician Neurology 01/21/23 documented as of this encounter
--- OUTSIDE RECORDS SUMMARY | 2024-08-07 02:24 | XMS_ITS | Encounter Summary ---
Author Organization [facility] Healthcare Address [address] [place] [address] Care Team Providers Care Glaze Handler Name Role Phone Sohan Rojas MD Primary Care Provider [phone] Lamin Mcgraw MD Unavailable [phone] Manuel Chowdhury MD Unavailable Shahrzad SONI MD, Carlos M. Unavailable [phone] Reason for Visit * Reason Onset Date Comments Referral Request 11/16/2023 Encounter Details Date Type Department Care Team (Late st Contact Info) Description 11/16/2023 Telephone [facility] Primary Care at [address] [address] Sohan Rojas MD [address] [place] [address] [address] [place] [address] Referral Request Social History Tobacco Use Types Packs/Day Years [...] and Family Twice a week 05/31/2019 Attends Episcopal Services Never 05/31 Active Member of Clubs [...] staff should administer the PHQ-9) 0 07/26/2023 [facility] Occupat ional Health - Occupational Stress [...] on file 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 Lexii Flores Specialty: Neurologist Address: [address] [place] [address], Zip: [place] [address] Diagnosis Code/Symptom/Reason Patient is being seen: G30.1 Date of Appointment: 11/29/23 NPI#: [id number] Tax ID#: [id number] Is insurance in chart up to date? Yes Additional Comments: [employer] insurance referral needed Does message need to be routed? Yes-Action Needed documented in this encounter Plan of Treatment Not on file documented as of this encounter Visit Diagnoses Not on filedocumented in this encounter Care Teams Glaze Handler Relationship Specialty Start Date End Date Sohan Rojas MD [address] [place] [address] PCP - General Family Medicine 07/10/22 Lamin Mcgraw MD [address] [place] [address] Consulting Physician Urology 07/27/22 Manuel Chowdhury MD [address] [place] [address] Consulting Physician Neurology 01/21/23 [place] [address] [address] Consulting Physician Neurology 01/21/23 documented as of this encounter
--- OUTSIDE RECORDS SUMMARY | 2024-08-07 02:24 | XMS_ITS | Encounter Summary ---
Author Organization [facility] Group Address [address] [facility] [address] [place] [address] Care Team Providers Care Continuity Reader Name Role Phone Sohan Rojas MD Primary Care Provider [phone] Lamin Mcgraw MD Unavailable [phone] Manuel Chowdhury MD Unavailable Shahrzad SONI MD, Carlos M. Unavailable Reason for Visit * Reason Onset Date Comments Referral Request 03/15/2023 Encounter Details Date Type Department Care Team (Late st Contact Info) Description 03/15/2023 Telephone [facility] Primary Care at [address] [address] Sohan Rojas MD [address] [place] [address] [address] [place] [address] Referral Request Social History Tobacco [...] should administer the PHQ-9) 0 01/21/2023 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 * Telephone Encounter - Adore Mendiola - 03/15/2023 9:50 AM CDT Referral Provider Name (if patient is seeing a nurse practitioner or physician hygiene assistant, list the GENERATOR SWITCHBOARD OPERATOR/PA, but also their collaborating doctor): [facility]-no provider was assigned Specialty: Dermatology Address: [address] [place] [address], [address], Zip: [place] [address] Diagnosis Code/Symptom/Reason Patient is being seen: Yearly skin check Date of Appointment: none set NPI#: not available Tax ID#: not available Is insurance in chart up to date? 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 Does not have the name of the provider they will be seeing,at [facility], as that will bedecided after referral. Does message need to be routed? Yes-Action Needed documented in this encounter Plan of Treatment Not on file documented as of this encounter Visit Diagnoses Diagnosis Skin cancer screening- Primary Screening for malignant neoplasm of the skin documented in this encounter Care Teams Continuity Reader Relationship Specialty Start Date End Date Sohan Rojas MD [address] [facility] [address] [place] [address] PCP - General Family Medicine 07/10/22 Lamin Mcgraw MD [address] [place] [address] Consulting Physician Urology 07/27/22 Manuel Chowdhury MD [address] [place] [address] Consulting Physician Neurology 01/21/23 [place] [address] [address] Consulting Physician Neurology 01/21/23 documented as of this encounter
--- OUTSIDE RECORDS SUMMARY | 2024-08-07 02:24 | XMS_ITS | Encounter Summary ---
Author Organization [facility] Healthcare Address [address] [place] [address] Care Team Providers Care Storage Manager Name Role Phone Sohan Rojas MD Primary Care Provider Lamin Mcgraw MD Unavailable [phone] Manuel Chowdhury MD Unavailable Shahrzad SONI MD, Carlos M. 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 Gender Identity Male 03/24/2021 7:53 PM CDT Sexual Orientation Straight 03/24/2021 7: 53 PM CDT Occupation Industry Job Start Date Job End Date retired Not on file Not on file Not on file documented as of this encounter Plan of Treatment Not on file documented as of this encounter Visit Diagnoses Not on filedocumented in this encounter Care Teams Storage Manager Relationship Specialty Start Date End Date Sohan Rojas MD [address] [facility] [address] [place] [address] PCP - General Family Medicine 07/10/22 Lamin Mcgraw MD [address] [place] [address] Consulting Physician Urology 07/27/22 Manuel Chowdhury MD [address] [place], [place] [address] Consulting Physician Neurology 01/21/23 [place] [address] [facility] [address] [place] [address] Consulting Physician Neurology 01/21/23 documented as of this encounter
--- OUTSIDE RECORDS SUMMARY | 2024-08-07 02:24 | XMS_ITS | Encounter Summary ---
Author Organization [facility] Medical Group Address [address] [facility] [address] [place] [address] Care Team Providers Care Certified Medication Technician Name Role Phone Sohan Rojas MD Primary Care Provider [phone] Lamin Mcgraw MD Unavailable [phone] Manuel Chowdhury MD Unavailable Shahrzad SONI MD, Carlos M. Unavailable [phone] Reason for Referral * Consultation (Routine) - Closed Specialty Diagnoses / Procedures Referred By Daxa t Referred To Contact Neurology Diagnoses 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 behavioral disturbance, psychotic disturbance, mood disturbance, or anxiety (HCC) [place] [address] [facility] [address] [place] [address] Phone: tel: fax: Ronaldo Coyle MD [address] [place] [address] Phone: tel: fax:[phone] Referral ID Status Reason Start Date Expiration Date V isits Requested Visits Authorized [id number] Closed Specialty Services Required 04/08/2023 05/07/2024 1 1 Question Answer Please select the performing region: [facility] (All Locations) [167] To provider: RONALDO COYLE [[id number]] # of visits: 1 Comments Department of Neurology [facility] [address] [address] Encounter Details Date Type Department Care Team (Late st Contact Info) Description 04/08/2023 Telephone [facility] [address] [facility] [address] [place] [address] [place] [address] [facility] [address] [place] [address] Social History Tobacco Use Types Packs/Day Years [...] and Family Twice a week 05/31/2019 Attends Roman Catholic Services Never 05/31 Active Member of [...] staff should administer the PHQ-9) 0 01/21/2023 [facility] of Occupat ional Health - Occupational Stress [...] on file 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 Gender Identity Male 03/24/2021 7:53 PM CDT Sexual Orientation Straight 03/24/2021 7: 53 PM CDT Occupation Industry Job Start Date Job End Date retired Not on file Not on file Not on file documented as of this encounter Miscellaneous Notes * Telephone Encounter - Anni Clark CMA - 04/08/2023 11:03 AM CDT Referral placed documented in this encounter Plan of Treatment Scheduled Referrals Name Type Priority Associated Diagnoses Order Schedule Ambulatory referral to Neurology Outpatient Referral Routine 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 behavioral disturbance, psychotic disturbance, mood disturbance, or anxiety (HCC) Expected: 04/22/2023 (Approximate), Expires: 04/08/2024 documented as of this encounter Visit Diagnoses Diagnosis 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 behavioral disturbance, psychotic disturbance, mood disturbance, or anxiety (HCC)- Primary documented in this encounter Care Teams Certified Medication Technician Relationship Specialty Start Date End Date Sohan Rojas MD [address] [facility] [address] [place] [address] PCP - General Family Medicine 07/10/22 Lamin Mcgraw MD [address] [place] [address] Consulting Physician Urology 07/27/22 Manuel Chowdhury MD [address] [place] [address] Consulting Physician Neurology 01/21/23 [place] [address] [address] Consulting Physician Neurology 01/21/23 documented as of this encounter
--- OUTSIDE RECORDS SUMMARY | 2024-08-07 02:25 | XMS_ITS | Encounter Summary ---
Author Organization [facility] Address [address] [place] [address] Care Team Providers Care Biofuels Production Associate Name Role Phone Sohan Rojas MD Primary Care Provider [phone] Lamin Mcgraw MD Unavailable [phone] Manuel Chowdhury MD Unavailable Shahrzad SONI MD, Carlos M. Unavailable Reason for Visit * Reason Comments Annual Exam Pt is [facility]. Encounter Details Date Type Department Care Team (Late st Contact Info) Description 01/21/2023 4:00 PM CDT Office Visit [facility] Primary Care at [address] [address] Sohan Rojas MD [address] [place] [address] [address] [place] [address] Encounter for Medicare annual wellness exam (Primary Dx); Prostate cancer (HCC); Pure hypercholesterolemia; 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 behavioral disturbance, psychotic disturbance, mood disturbance, or anxiety (HCC); Spinal stenosis of lumbar region with neurogenic claudication; Mild intermittent asthma without complication; Gastroesophageal reflux disease with esophagitis without hemorrhage; Chronic pain syndrome; 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HCC) Social History Tobacco Use Types Packs/Day [...] and Family Twice a week 05/31/2019 Attends Sikhism Services Never 05/31 Active Member of Clubs or Organizations No 05/31/2019 Attends Club or Organization Meetings Never 05/31/2019 Marital Status 05/31/2019 AUDIT-C Answer Date Recorded Q1: How often do you have a drink containing alc ohol? Never 12/19/2020 Average Number of Drinks Not on file 021 Frequency of Binge Drinking Not on file 09/2020 Overall Financial Resource Strain (CARDIA) Answe r Date Recorded Difficulty of Paying Living Expenses Not hard at all 05/31/2019 PHQ-2 Answer Date Recorded PHQ-2 Total Score (If total score is 3 or more points, staff should administer the PHQ-9) 0 01/21/2023 [facility] - Occupational [...] 05/31/2019 Lack of Transportation (Non-Medical) No 05/31/2019 Education Answer Date Recorded What is the highest level of school you have completed or the highest degree you have received? 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 Gender Identity Male 03/24/2021 7:53 PM CDT Sexual Orientation Straight 03/24/2021 7: 53 PM CDT Occupation Industry Job Start Date Job End Date retired Not on file Not on file Not on file documented as of this encounter Last Filed Vital Signs Vital Sign Reading Time Taken Comments Blood Pressure 124/86 01/21/2023 3:56 PM CDT Pulse 86 01/21/2023 3:56 PM CDT Temperature 36.8 ??C (98.2 ??F) 01/21/2023 3:56 PM CD T Respiratory Rate - - Oxygen Saturation 98% 01/21/2023 3:56 PM CDT Inhaled Oxygen Concentration - - Weight 73.2 kg (161 lb 6.4 oz) 01/21/2023 3:56 P M CDT Height 177.8 cm (5' 10 ) 01/21/2023 3:56 PM CDT Body Mass Index 23.16 01/21/2023 3:56 PM CDT documented in this encounter Patient Instructions * Patient Instructions* Sohan Rojas MD - 01/21/2023 4:00 PM CDT Labs ordered for next visit Awaiting labs for this visit Continuing current regimen BP is controlled Thanks for coming in today! My medical assistants and I are thankful you have trusted us with your care, and hope that you received EXCELLENT care today! Please do not hesitate to call if you have any questions or concerns at [phone]. You may receive a phone call, text, MYCHART message, or e-mail asking about your care today. We would love to hear your feedback on how EXCELLENT your care wastoday! Wishing you better health, always. Dr. Rojas * Attachments The following attachments cannot be sent through Care Everywhere. * DASH Eating Plan (General Information) (Ugandan) documented in this encounter Progress Notes * Sohan Rojas MD - 01/21/2023 4:00 PM CDT MEDICARE ANNUAL WELLNESS VISIT Lowell Travis Medicare Health Risk Assessment Basic Information In general, would you say your health is: (P) Good Do you have an advance directive, such as a living will or durable power of insurance defense attorney?: (P) Yes Do you have to strain or struggle to hear/understand conversations?: (P) No Have you experienced any of the following problems currently or recently? Eating: (P) No Grooming: (P) No Bathing: (P) No Walking: (P) No Using the toilet: (P) No Memory problems: (P) Yes Difficulty speaking: (P) No Pain: (P) No Sexual Health: (P) No Fatigue: (P) Yes Have you experienced any of the following problems currently or recently? Laundry and/or housekeeping: (P) No Handling Money: (P) Yes Shopping: (P) Yes Food preparation: (P) No Transportation: (P) No Taking and/or getting your own medications: (P) Yes Do you use prescription drugs that are not prescribed for you?: (P) No Problem List, Past Medical and Surgical History: Patient Active Problem List Diagnosis Hypercholesterolemia Osteoarthritis [...] Asthma Arthritis 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HCC) Encounter for Medicare annual wellness exam Spinal stenosis of lumbar region with neurogenic claudication Radiculopathy, lumbosacral region Balance problem 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 behavioral disturbance, psychotic disturbance, mood disturbance, or anxiety (HCC) Past Medical History: Diagnosis Date Anxiety Arthritis Asthma GERD (gastroesophageal reflux disease) Heart disease Hyperlipidemia Insomnia Osteoporosis Personal history of other diseases of the respiratory system Personal history of asthma - (Added by TW Conv) Rheumatic fever Sleep apnea Diagnosed years ago - not sure if it's still pertinent Sleep difficulties Past Surgical History: Procedure Laterality Date FOOT SURGERY Foot Surgery - (Added by TW Conv) LUMBAR DISC SURGERY Spinal Diskectomy Lumbar - (Added by TW Conv) [place] TONSILLECTOMY PRIMARY/SECONDARY <AGE 14 Tonsillectomy - (Added by TW Conv) PROSTATE CANCER GENE 3 (PCA3) SPINE SURGERY Family History: Family History Problem Relation Age of Onset [...] Paternal Grandmother Memory loss Paternal Grandmother Social History: Social History Tobacco Use Smoking status: Former Types: Pipe Quit date: 11/28/1979 Years since quittin.1 Smokeless tobacco: Never Substance and Sexual Activity Drug use: Never Sexual activity: Not Currently control/protection: None Alcohol Use: Not At Risk (12/19/2020) AUDIT-C Frequency of Alcohol Consumption: Never Average Number of Drinks: Not on file Frequency of Binge Drinking: Not on file Allergies: Allergies Allergen Reactions Other Sneezing Seasonal allergies Medications: Current Outpatient Medications: albuterol HFA (PROVENTIL HFA,VENTOLIN HFA,PROAIR HFA) 90 mcg/actuation inhaler, Inhale 2 puffs every 4 (four) hours as needed for wheezing, Disp: 1 each, Rfl: 3 atorvastatin (LIPITOR) 20 mg tablet, Take 1 tablet (20 mg total) by mouth daily, Disp: 90 tablet, Rfl: 1 cholecalciferol, vitamin D3, 1,000 unit tablet,chewable, , [...] mouth daily, Disp: 90 tablet, Rfl:1 fluticasone furoate-vilanteroL (Breo Ellipta) 100-25 mcg/dose diskus inhaler, Inhale 1 puff daily, Disp: 3 each, Rfl: 1 fluticasone propionate (FLONASE) 50 mcg/actuation nasal spray, Administer 2 sprays into each nostril daily (Patient not taking: Reported on 11/13/2022), Disp: 3 each, Rfl: 4 lecithin 1,200 mg capsule, Take 1 capsule by mouth 2 (two) times a day (Patient not taking: Reported on 11/13/2022), Disp: , Rfl: mometasone 50 mcg/actuation HFA aerosol inhaler, Inhale (Patient not taking: Reported on 11/13/2022), Disp: , Rfl: omega 8-dxy-wib-fish oil 360-1,200 mg capsule,delayed release(DR/EC), Take 1 capsule by mouth daily, Disp: , Rfl: omeprazole (PriLOSEC) 20 mg capsule, Take 1 capsule (20 mg total) by mouth daily, Disp: 90 capsule,Rfl: 1 oxyCODONE-acetaminophen (PERCOCET) 5-325 mg per tablet, Take 1 tablet by mouth every 6 (six) hours as needed for pain Do not exceed 6 tablets per day. (Patient not taking: Reported on 11/13/2022), Disp: 90 tablet, Rfl: 0 peg 400-propylene glycol (SYSTANE) 0.4-0.3 % ophthalmic solution, Administer 1 drop into both eyes as needed (Patient not taking: Reported on 11/13/2022), Disp: , Rfl: tamsulosin (FLOMAX) 0.4 mg extended release capsule, Take 1 capsule (0.4 mg total) by mouth daily, Disp: 90 capsule, Rfl: 1 vitamin b complex (Vitamins B Complex) tablet, Take 1 tablet by mouth daily, Disp: , Rfl: vitamin E (AQUASOL E) 1,000 unit capsule, Take 5 capsules (5,000 Units total) by mouth daily, Disp:, Rfl: Current Facility-Administered Medications: cefTRIAXone (ROCEPHIN) 350 mg/mL intramuscular injection 1,000 mg, 1,000 mg, intramuscular, Q24H [facility] STOKESRadhames James P., MD, 1,000 mg at 09/17/20 0955 Depression Screen: PHQ Screening Over the past 2 weeks, how often have you been bothered by any of the following problems? Little Interest or Pleasure in Doing Things: Not at all Feeling Down, Depressed, or Hopeless: Not at all PHQ-2 Total Score (If total score is 3 or more points, staff should administer the PHQ-9): 0 STEADI Fall Risk Screening In the past year, patient experienced: One or more falls in the last year: (!) (P) Yes How many times?: (P) 2 or more Was the patient injured in the fall?: (P) No Vitals: Vitals BP 124/86 (BP Location: Right arm, Patient Position: Sitting) Pulse 86 Temp 36.8 ??C (98.2 ??F) (Oral) Ht 177.8 cm (5' 10 ) Wt 73.2 kg (161 lb 6.4 oz) SpO2 98% BMI 23.16 kg/m?? Body mass index is 23.16 kg/m??. Exam: Physical Exam Vitals reviewed. Constitutional: Appearance: He is normal weight. HENT: Head: Normocephalic and atraumatic. Cardiovascular: Rate and Rhythm: Normal rate and regular rhythm. Heart sounds: No murmur heard. No friction rub. No gallop. Pulmonary: Breath sounds: No wheezing, rhonchi or rales. Neurological: Mental Status: He is alert and oriented to person, place, and time. Mental status is at baseline. Care Team Providers: Patient Care Team: Sohan Rojas MD as PCP - General (Family Medicine) Lamin Mcgraw MD as Consulting Physician (Urology) Primary Pharmacy/DME suppliers: [id number] - [place], [place] - [address] [facility] [address] [address] [facility] Mail Delivery - [facility] [address] [facility] [address] [facility] [address] Detection of Cognitive Impairment: The patient does have cognitive impairment based on direct observation, discussion with patient or family, or review of medical records. Health Maintenance: Health Maintenance Topics with due status: Overdue Topic Date Due Well Visit 65+ 06/19/2022 Covid-19 Vaccine 09/08/2022 Health Maintenance Topics with due status: Not Due Topic Last Completion Date DTaP/Tdap/Td Vaccine 12/15/2015 Influenza Vaccine 05/08/2022 Depression Screening-PHQ 09/23/2022 Fall Risk Assessment 12/03/2022 Health Maintenance Topics with due status: Completed Topic Last Completion Date Zoster Vaccines 04/08/2020 Pneumococcal vaccine 65+ 07/27/2022 Counseling and Referral of Preventative Services: Lifestyle Recommendations Increase Physical Activity, Reduce Weight, and Improve Diet Advanced Directive Durable Power of Plant 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 Gulshan Johnston is up to date onscreening tests. He is in need of None- no screening indicated at this time. He is not up to date on needed preventative vaccinations; He is in need of Covid-19 (booster). We discussed healthy lifesty le habits, educational material has been given. Medications reviewed, changes documented as per themedical record and discussed with patient along with risks vs benefits. Return in 6 months Prostate cancer (HCC) Comments: remote history, not currently receiving chemo or XRT will monitor PSA's Orders: - PSA screen; Future Pure hypercholesterolemia - CBC with auto differential; Future - Comprehensive metabolic panel; Future - Lipid panel; Future 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 behavioral disturbance, psychotic disturbance, mood disturbance, or anxiety (HCC) Comments: tolerating Aricept better Spinal stenosis of lumbar region with neurogenic claudication Comments: following with pain management Mild intermittent asthma without complication Comments: stabl;e cotninuing Breo, PRN albuterol Gastroesophageal reflux disease with esophagitis without hemorrhage - CBC with auto differential; Future Chronic pain syndrome Comments: has seen pain management 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HCC) - Comprehensive metabolic panel; Future - Vitamin B12; Future Patient here for annual Medicare wellness visit and for review of complete medical problem list. All the elements of the plan were completed as outlined by CMS. A copy of the prevention plan was given to the patient. I reviewed Medicare Wellness Questionnaire (other physicians involved in care, depression screen, advanced directives), cognitive/memory, and functional assessment. I reviewed and updated the complete problem list, medication list, family history, and immunization records with the patient. I provided preventive counseling and early detection interventions to the patient through health maintenance update and summary of today's office visit. documented in this encounter Miscellaneous Notes * Assessment & Plan Note - Sohan Rojas MD - 01/21/2023 4:26 PM CDT Associated Problem(s): Encounter for Medicare annual wellness exam A(n) yearly Medicare Annual Wellness Visit has been performed today. Gulshan Johnston is up to date onscreening tests. He is in need of None- no screening indicated at this time. He is not up to date on needed preventative vaccinations; He is in need of Covid-19 (booster). We discussed healthy lifesty le habits, educational material has been given. Medications reviewed, changes documented as per themedical record and discussed with patient along with risks vs benefits. Return in 6 months documented in this encounter Plan of Treatment Not on file documented as of this encounter Visit Diagnoses Diagnosis Encounter for Medicare annual wellness exam- Primary Prostate cancer (HCC) Malignant neoplasm of prostate Pure hypercholesterolemia 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 behavioral disturbance, psychotic disturbance, mood disturbance, or anxiety (HCC) Spinal stenosis of lumbar region with neurogenic claudication Mild intermittent asthma without complication Gastroesophageal reflux disease with esophagitis without hemorrhage Chronic pain syndrome 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HCC) documented in this encounter Discontinued Medications Medication Sig Discontinue Reason Start Date End Da te oxyCODONE-acetaminophen (PERCOCET) 5-325 mg per tabletIndications:Pain Take 1 tablet by mouth every 6 (six) hours as needed for pain Do not exceed 6 tablets per day. 01/27/2022 01/21/2023 documented as of this encounter Care Teams Biofuels Production Associate Relationship Specialty Start Date End Date Sohan Rojas MD [address] [address] PCP - General Family Medicine 07/10/22 Lamin Mcgraw MD [address] [place] [address] Consulting Physician Urology 07/27/22 Manuel Chowdhruy MD [address] [place] [address] Consulting Physician Neurology 01/21/23 [place] [address] [address] Consulting Physician Neurology 01/21/23 documented as of this encounter
--- OUTSIDE RECORDS SUMMARY | 2024-08-07 02:25 | XMS_ITS | Encounter Summary ---
Author Organization [facility] Address [address] [place] [address] Care Team Providers Care Shuttle Van Driver Name Role Phone Sohan Rojas MD Primary Care Provider [phone] Lamin Mcgraw MD Unavailable [phone] Encounter Details Date Type Department Care Team (Latest Contact Info) Description 11/13/2022 12:59 PM CDT - 11/13/2022 11:59 PM CDT Hospital Encounter [facility] [address] [place] [address] [place] [address] [facility] [address] [place] [address] Spinal stenosis of lumbar region with neurogenic claudication (Primary Dx); Lumbar back pain; Chronic bilateral low back pain without sciatica Discharge Disposition: Discharge to home or self [...] and Family Twice a week 05/31/2019 Attends Christianity Services Never 05/31 Active Member of Clubs [...] points, staff should administer the PHQ-9) 0 09/23/2022 [facility] - Occupational Stress [...] on file 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 Gender Identity Male 03/24/2021 7:53 PM CDT Sexual Orientation Straight 03/24/2021 7: 53 PM CDT Occupation Industry Job Start Date Job End Date retired Not on file Not on file Not on file documented as of this encounter Last Filed Vital Signs Vital Sign Reading Time Taken Comments Blood Pressure 147/69 11/13/2022 1:39 PM CDT Pulse 72 11/13/2022 1:39 PM CDT Temperature - - Respiratory Rate 16 11/13/2022 1:39 PM CDT Oxygen Saturation 100% 11/13/2022 1:39 PM CDT Inhaled Oxygen Concentration - - Weight - - Height - - Body Mass Index - - documented in this encounter Medications at Time [...] 180 tablet 3 10/23/2022 4 donepeziL (ARICEPT) 5 mg tabletIndications :Moderate to Severe Alzheimer's Type Dementia Take 1 tablet (5 mg total) by mouth nightly 30 tablet 3 09/23/2022 3 finasteride (PROSCAR) 5 mg tabletIndications :Prostate cancer (HCC) Take 1 tablet (5 mg total) by mouth daily 90 tablet 1 09/23/2022 4 fluticasone furoate-vilantero L (Breo Ellipta) 100-25 mcg/dose diskus inhalerIndication s:Maintenance Therapy for Asthma Inhale 1 puff daily 3 each 1 07/27/2022 3 fluticasone propionate (FLONASE) 50 mcg/actuation nasal sprayIndications: Acute non-recurrent maxillary sinusitis Administer 2 sprays into each nostril daily 3 each 4 04/15/2022 4 lecithin 1,200 mg capsule Take 1 capsule by mouth 2 (two) times a day 4 mometasone 50 mcg/actuation HFA aerosol inhaler Inhale 4 omega 8-yjh-lmq-fish oil 360-1,200 mg capsule,delayed release(DR/EC) Take 1 capsule by mouth daily 03/10/2016 4 omeprazole (PriLOSEC) 20 mg capsuleIndication s:Gastroesophagea l reflux disease without esophagitis Take 1 capsule (20 mg total) by mouth daily 90 capsule 1 09/23/2022 3 oxyCODONE-acetami nophen (PERCOCET) 5-325 mg per tabletIndications :Pain Take 1 tablet by mouth every 6 (six) hours as needed for pain Do not exceed 6 tablets per day. 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 HPI Patient returned complaints of mild lower back pain. Pain is bilateral lower back area described asdull and achy. He is returning following recent participation in physical therapy and notes significant improvement with his symptomatology. He does occasionally developed a sharp pain in the left side of his lower back buttock area which will cause him to nearly fall. This is decreased with the physical therapy. He has neglected to use cane or walker. Allergies Allergen Reactions Other Sneezing Seasonal allergies Past Medical History: [...] Diskectomy Lumbar - (Added by TW Conv) [place] TONSILLECTOMY PRIMARY/SECONDARY <AGE 14 Tonsillectomy - (Added by TW Conv) PROSTATE CANCER GENE 3 (PCA3) SPINE SURGERY Social History Tobacco Use Smoking status: Former Types: Pipe Quit date: 11/28/1979 Years since quittin.9 Smokeless tobacco: Never Substance and Sexual Activity Drug use: Never Sexual activity: Not Currently control/protection: None Alcohol Use: Not on file Family History Problem Relation Age of Onset [...] disease Paternal Grandmother Memory loss Paternal Grandmother HOME MEDICATIONS : albuterol HFA (PROVENTIL HFA,VENTOLIN HFA,PROAIR HFA) 90 mcg/actuation inhaler atorvastatin (LIPITOR) 20 mg tablet cranberry extract [address] (VOLTAREN) 75 mg EC tablet donepeziL (ARICEPT) 5 mg tablet finasteride (PROSCAR) 5 mg tablet fluticasone furoate-vilanteroL (Breo Ellipta) 100-25 mcg/dose diskus inhaler omega 1-inh-nge-fish oil 360-1,200 mg capsule,delayed release(DR/EC) omeprazole (PriLOSEC) 20 mg capsule tamsulosin (FLOMAX) 0.4 mg extended release capsule vitamin b complex (Vitamins B Complex) tablet vitamin E (AQUASOL E) 1,000 unit capsule cholecalciferol, vitamin D3, 1,000 unit tablet,chewable fluticasone propionate (FLONASE) 50 mcg/actuation nasal spray lecithin 1,200 mg capsule mometasone 50 mcg/actuation HFA aerosol inhaler oxyCODONE-acetaminophen (PERCOCET) 5-325 mg per tablet peg 400-propylene glycol (SYSTANE) 0.4-0.3 % ophthalmic solution Review of Systems Review of Systems Musculoskeletal: Positive for arthralgias, back pain, joint swelling and myalgias. Physical Exam Vitals: 11/13/22 1339 BP: 147/69 BP Location: Right arm Patient Position: Sitting Pulse: 72 Resp: 16 SpO2: 100% There is no height or weight on file to calculate BMI. Physical Exam Vitals and nursing note reviewed. Constitutional: General: He is not in acute distress. Appearance: Normal appearance. He is well-developed. He is not diaphoretic. HENT: Head: Normocephalic and atraumatic. Eyes: Conjunctiva/sclera: Conjunctivae normal. Musculoskeletal: General: No tenderness or deformity. Right lower leg: No edema. Left lower leg: No edema. Skin: General: Skin is warm and dry. Neurological: General: No focal deficit present. Mental Status: He is alert and oriented to person, place, and time. Sensory: No sensory deficit. Motor: No weakness or abnormal muscle tone. Coordination: Coordination normal. Deep Tendon Reflexes: Reflexes normal. Psychiatric: Mood and Affect: Mood normal. Behavior: Behavior normal. Thought Content: Thought content normal. Judgment: Judgment normal. Assessment Problem List Musculoskeletal and Injuries Lumbago (Chronic) Lumbar back pain Neuro Spinal stenosis of lumbar region with neurogenic claudication - Primary Plan Pre-hypertension/Hypertension: The patient has been informed that they may have pre-hypertension orhypertension based on a blood pressure reading in the office today. I recommend that the patient call their primary care provider or a physician of their choice this week to arrange follow up for further evaluation of possible pre-hypertension or hypertension. I have also recommended that they try weight loss and exercise for management. Patient notes improvement in both mobility and symptomatology following injection therapy and physical therapy. He is encouraged to use walker at minimum cane to prevent fall. He is to continue with his physical therapy at home. Symptoms increase in frequency and are intensity patient will return to office. This dictation was performed using M*Modal dictation. There may be some stereotyper apprentice variances which are not appreciated or corrected in this note. Cosigned by Stas So MD at 11/13/2022 4:00 PM CDT documented in this encounter Plan of Treatment Not on file documented as of this encounter Visit Diagnoses Diagnosis Spinal stenosis of lumbar region with neurogenic claudication- Primary Lumbar back pain Lumbago Chronic bilateral low back pain without sciatica documented in this encounter Care Teams Shuttle Van Driver Relationship Specialty Start Date End Date Sohan Rojas MD [address] [address] PCP - General Family Medicine 07/10/22 Lamin Mcgraw MD [address] [place] [address] Consulting Physician Urology 07/27/22 documented as of this encounter
--- OUTSIDE RECORDS SUMMARY | 2024-08-07 02:25 | XMS_ITS | Encounter Summary ---
Author Organization [facility] Healthcare Address [address] [place] [address] Care Team Providers Care Engineering Leader Name Role Phone Sohan Rojas MD Primary Care Provider [phone] Lamin Mcgraw MD Unavailable [phone] Reason for Referral * MRI/CAT/PET Scan (Routine) - Closed Specialty Diagnoses / Procedures Referred By Contac t Referred To Contact Radiology Diagnoses Chronic bilateral low back pain with bilateral sciatica Procedures MRI [place] [address] [facility] [address] [place] [address] Phone: tel: fax: [address] [phone] Referral ID Status Reason Start Date Expiration Date Visits Re quested Visits Authorized [id number] Closed 08/31/2022 09/30/2022 1 1 S POURER Reason for Visit * MRI/CAT/PET Scan (Routine) - Closed Specialty Diagnoses / Procedures Referred By Contac t Referred To Contact Radiology Diagnoses Chronic bilateral low back pain with bilateral sciatica Procedures MRI [place] [address] [facility] [address] [place] [address] Phone: tel: fax: [address] [phone] Referral ID Status Reason Start Date Expiration Date Visits Re quested Visits Authorized [id number] Closed 08/31/2022 09/30/2022 1 1 Encounter Details Date Type Department Care Team (Latest Contact Info) Description 08/31/2022 5:03 PM BRASS POURER - 08/31/2022 11:59 PM BRASS POURER Hospital Encounter [facility] Imaging and Radiology [address] [place] [address] Chronic bilateral low back pain with bilateral sciatica Discharge Disposition: Discharge to home or [...] and Family Twice a week 05/31/2019 Attends [employer] Services Never 05/31 Active Member of Clubs [...] points, staff should administer the PHQ-9) 0 08/18/2022 [facility] of Occupat ional Health - Occupational Stress [...] on file Legal Sex Male 8:20 PM BRASS POURER Gender Identity Male 03/24/2021 7:53 PM CDT [...] mg total) by mouth daily 90 tablet 3 08/18/2022 3 cholecalciferol, vitamin D3, 1,000 unit tablet,chewable Take 1 tablet/chew tab by mouth daily 4 cranberry extract 200 mg capsule Take 2 capsules by mouth 3 (three) times a day 03/10/[address] (VOLTAREN) 75 mg EC tabletIndications :Degenerative lumbar spinal stenosis Take 1 tablet (75 mg total) by mouth 2 (two) times a day 180 tablet 3 07/08/2021 3 finasteride (PROSCAR) 5 mg tabletIndications :Prostate cancer (HCC) Take 1 tablet (5 mg total) by mouth daily 90 tablet 1 08/18/2022 3 fluticasone furoate-vilantero L (Breo Ellipta) 100-25 mcg/dose diskus inhalerIndication s:Maintenance Therapy for Asthma Inhale 1 puff daily 3 each 1 07/27/2022 3 fluticasone propionate (FLONASE) 50 mcg/actuation nasal sprayIndications: Acute non-recurrent maxillary sinusitis Administer 2 sprays into each nostril daily 3 each 4 04/15/2022 4 lecithin 1,200 mg capsule Take 1 capsule by mouth 2 (two) times a day 4 memantine (Namenda) 5 mg tabletIndications :Moderate to Severe Alzheimer's Type Dementia Take 1 tablet (5 mg total) by mouth 2 (two) times a day 60 tablet 1 08/18/2022 3 mometasone 50 mcg/actuation HFA aerosol inhaler Inhale 4 omega 6-ocq-yhe-fish oil 360-1,200 mg capsule,delayed release(DR/EC) Take 1 capsule by mouth daily 03/10/2016 4 omeprazole (PriLOSEC) 20 mg capsuleIndication s:Gastroesophagea l reflux disease without esophagitis Take 1 capsule (20 mg total) by mouth daily 30 capsule 08/18/2022 3 oxyCODONE-acetami nophen (PERCOCET) 5-325 mg per [...] total) by mouth daily 90 capsule 1 08/18/2022 3 vitamin b complex (Vitamins B Complex) tablet [...] Procedure Name Priority Date/Time Associated Diagnosis Comments MRI LUMBAR SPINE WO CONTRAST Schedule Routine, Read Routine (OP Routine) 08/31/2022 6:02 PM BRASS POURER Chronic bilateral low back pain with bilateral sciatica documented in this encounter Results * MRI Lumbar Spine WO Contrast (08/31/2022 6:02 PM BRASS POURER) Anatomical Region Laterality Modality Spine N/A Magnetic Resonan ce 09/01/2022 8:19 AM BRASS POURER Impressions 09/01/2022 8:19 AM BRASS POURER Severe multilevel disease with spinal stenosis multiple levels maximal L4-L5. ??No definite disc herniation. ??Multiple foraminal stenoses. ??Scoliosis Electronically signed by: Alex Gill M.D. Narrative 09/01/2022 8:19 AM BRASS POURER Examination: MRI LUMBAR SPINE WO CONTRAST ??08/31/2022 5:45 PM History: 82-year-old man low back pain bilateral sciatica. ??Pain particularly posterior left leg Technique: Multiplanar multisequence spin-echo images obtained Findings: Correlation is made with sagittal reformatted images obtained time of an abdominal pelvic CT of 08/18/2017. ??Patient has a right convexity lumbar scoliotic deformity. ??There is a grade 1 out of 3 spondylolisthesis of L4 on L5 with mild retrolisthesis L2 on L3 and L1 on L2. ??Nonacute compression fractures are seen anteriorly T12-L1 and L2. ??Severe multilevel degenerative changes are seen with narrowing of all disc spaces. ??Ventral defects multiple levels most pronounced at L4-L5 associated with high-grade spinal stenosis. Tortuosity of the intradural nerve roots above the L4-L5 level consistent with long-standing spinal stenosis. ??The bone marrow signal intensity is within normal limits. ??Multiple Schmorl's nodes are seen. ??The conus medullaris terminates at the normal level. Transaxial images: T12-L1, minimal disc bulging, moderate facet joint disease. ??No CORD compression. L1-L2 broad-based bulge with severe facet joint disease with borderline stenosis. ??Cortical cysts in the right kidney. L2-L3, broad-based bulge, severe facet joint disease. ??Moderate central and lateral recess spinal stenosis. L3-L4, severe facet joint disease, diffuse disc bulging, high-grade spinal stenosis central and lateral recess and foraminal stenosis bilaterally. L4-L5, critical spinal stenosis with spondylolisthesis with severe facet joint disease, disc bulging. ??Ligamentum flavum hypertrophy. Central, lateral recess and foraminal stenosis bilaterally. L5-S1 demonstrates minimal disc bulge, moderate facet joint disease. Mild foraminal stenosis bilaterally with no central stenosis. Procedure Note Alex Gill MD - 09/01/2022 Examination: MRI LUMBAR SPINE WO CONTRAST 08/31/2022 5:45 PM History: 82-year-old man low back pain bilateral sciatica. Pain particularly posterior left leg Technique: Multiplanar multisequence spin-echo images obtained Findings: Correlation is made with sagittal reformatted images obtained time of an abdominal pelvic CT of 08/18/2017. Patient has a right convexity lumbar scoliotic deformity. There is a grade 1 out of 3 spondylolisthesis of L4 on L5 with mild retrolisthesis L2 on L3 and L1 on L2. Nonacute compression fractures are seen anteriorly T12-L1 and L2. Severe multilevel degenerative changes are seen with narrowing of all disc spaces. Ventral defects multiple levels most pronounced at L4-L5 associated with high-grade spinal stenosis. Tortuosity of the intradural nerve roots above the L4-L5 level consistent with long-standing spinal stenosis. The bone marrow signal intensity is within normal limits. Multiple Schmorl's nodes are seen. The conus medullaris terminates at the normal level. Transaxial images: T12-L1, minimal disc bulging, moderate facet joint disease. No CORD compression. L1-L2 broad-based bulge with severe facet joint disease with borderline stenosis. Cortical cysts in the right kidney. L2-L3, broad-based bulge, severe facet joint disease. Moderate central and lateral recess spinal stenosis. L3-L4, severe facet joint disease, diffuse disc bulging, high-grade spinal stenosis central and lateral recess and foraminal stenosis bilaterally. L4-L5, critical spinal stenosis with spondylolisthesis with severe facet joint disease, disc bulging. Ligamentum flavum hypertrophy. Central, lateral recess and foraminal stenosis bilaterally. L5-S1 demonstrates minimal disc bulge, moderate facet joint disease. Mild foraminal stenosis bilaterally with no central stenosis. IMPRESSION: Severe multilevel disease with spinal stenosis multiple levels maximal L4-L5. No definite disc herniation. Multiple foraminal stenoses. Scoliosis Electronically signed by: Alex Gill M.D. us Stas So MD IMG MRI PROCEDURES Fi nal Result documented in this encounter Visit Diagnoses Diagnosis Chronic bilateral low back pain with bilateral sciatica documented in this encounter Care Teams Engineering Leader Relationship Specialty Start Date End Date Sohan Rojas MD 2 [facility] [address] [place] [address] PCP - General Family Medicine 07/10/22 Lamin Mcgraw MD [address] [place] [address] Consulting Physician Urology 07/27/22 documented as of this encounter
--- OUTSIDE RECORDS SUMMARY | 2024-08-07 02:25 | XMS_ITS | Encounter Summary ---
Author Organization [facility] Address [address] [place] [address] Care Team Providers Care Television Newscast Director Name Role Phone Sohan Rojas MD Primary Care Provider [phone] Lamin Mcgraw MD Unavailable [phone] Reason for Visit * Reason Comments Follow-up From injection Encounter Details Date Type Department Care Team (Late st Contact Info) Description 09/15/2022 3:30 PM BOOKS SALESPERSON Office Visit [facility] Pain Management at [address] [phone] Zain Park, DEVICE PROCESSING ENGINEER [address] [facility] [address] [place] [address] Balance problem (Primary Dx); Abnormal gait; Spinal stenosis of lumbar region with neurogenic claudication; Radiculopathy, lumbosacral region; Degenerative lumbar spinal stenosis Social History Tobacco Use Types Packs/Day Years [...] staff should administer the PHQ-9) 0 08/18/2022 [facility] of Occupat ional Health - Occupational [...] on file Legal Sex Male 8:20 PM BOOKS SALESPERSON Gender Identity Male 03/24/2021 7:53 PM CDT Sexual Orientation Straight 03/24/2021 7: 53 PM CDT Occupation Industry Job Start Date Job End Date retired Not on file Not on file Not on file documented as of this encounter Last Filed Vital Signs Vital Sign Reading Time Taken Comments Blood Pressure 133/72 09/15/2022 3:28 PM BOOKS SALESPERSON Pulse 74 09/15/2022 3:28 PM BOOKS SALESPERSON Temperature - - Respiratory Rate - - Oxygen Saturation 97% 09/15/2022 3:28 PM BOOKS SALESPERSON Inhaled Oxygen Concentration - - Weight 73.4 kg (161 lb 14.4 oz) 09/15/2022 3:28 PM BOOKS SALESPERSON Height 177.8 cm (5' 10 ) 09/15/2022 3:28 PM BOOKS SALESPERSON Body Mass Index 23.23 09/15/2022 3:28 PM BOOKS SALESPERSON documented in this encounter Progress Notes * Zain Park, DEVICE PROCESSING ENGINEER - 09/15/2022 3:30 PM CST Patient Name: Gulshan Johnston : 1940 Today's Date: 09/15/2022 PCP: Sohan Rojas MD Referring: Sohan Rojas MD Chief Complaint Patient presents with Follow-up From injection HPI Patient is returning for follow-up visit. He endorses ongoing chronic lower back pain. Pain is rated 3 on 10 scale. He endorses intermittent numbness into lower extremities particularly worse with prolonged standing or walking. He does feels though there is some sense of weakness in the lower extremities as well. Most recent epidural injection 1 month prior provided approximally 40% benefit with regards his symptomatology. He still endorses ongoing benefit. Allergies Allergen Reactions Other Sneezing Seasonal allergies [...] Diskectomy Lumbar - (Added by TW Conv) DC TONSILLECTOMY PRIMARY/SECONDARY <AGE 12 Tonsillectomy - (Added by TW Conv) PROSTATE CANCER GENE 3 (PCA3) SPINE SURGERY Social History Tobacco Use Smoking status: Former Types: Pipe Quit date: 11/28/1979 Years since quittin.8 Smokeless tobacco: Never Substance and Sexual Activity [...] mcg/actuation inhaler atorvastatin (LIPITOR) 20 mg tablet cholecalciferol, vitamin D3, 1,000 unit tablet,chewable cranberry extract [address] (VOLTAREN) 75 mg EC tablet finasteride (PROSCAR) 5 mg tablet fluticasone furoate-vilanteroL (Breo Ellipta) 100-25 mcg/dose diskus inhaler fluticasone propionate (FLONASE) 50 mcg/actuation nasal spray lecithin 1,200 mg capsule mometasone 50 mcg/actuation HFA aerosol inhaler omega 7-osb-ynw-fish oil 360-1,200 mg capsule,delayed release(DR/EC) omeprazole (PriLOSEC) 20 mg capsule oxyCODONE-acetaminophen (PERCOCET) 5-325 mg per tablet peg 400-propylene glycol (SYSTANE) 0.4-0.3 % ophthalmic solution tamsulosin (FLOMAX) 0.4 mg extended release capsule vitamin b complex (Vitamins B Complex) tablet vitamin E (AQUASOL E) 1,000 unit capsule memantine (NAMENDA) 5 mg tablet Review of Systems Review of Systems Musculoskeletal: Positive for arthralgias and back pain. Neurological: Positive for numbness. Physical Exam Vitals: 09/15/22 1528 BP: 133/72 BP Location: Right arm Patient Position: Sitting Pulse: 74 SpO2: 97% Weight: 73.4 kg (161 lb 14.4 oz) Height: 177.8 cm (5' 10 ) Body mass index is 23.23 kg/m??. Physical Exam Vitals and nursing note reviewed. Constitutional: General: He is not in acute distress. Appearance: Normal appearance. He is well-developed. He is not diaphoretic. HENT: Head: Normocephalic and atraumatic. Eyes: Conjunctiva/sclera: Conjunctivae normal. Musculoskeletal: General: No tenderness or deformity. Right lower leg: No edema. Left lower leg: No edema. Comments: Straight leg raise negative, fabere Rohan test negative. Patient able to rise on toes and heels without difficulty. Skin: General: Skin is warm and dry. Neurological: General: No focal deficit present. Mental Status: He is alert and oriented to person, place, and time. Sensory: No sensory deficit. Motor: No weakness or abnormal muscle tone. Coordination: Coordination normal. Deep Tendon Reflexes: Reflexes normal. Comments: Romberg test negative, tandem gait demonstrates slight difficulty. Muscle strength lower extremities 5/5, reflexes + 2/2 on left 1/2 on right patellar site. Achilles reflexes equal bilaterally at 1/2. Ankle clonus absent. Psychiatric: Mood and Affect: Mood normal. Behavior: Behavior normal. Thought Content: Thought content normal. Judgment: Judgment normal. Assessment Problem List Neuro Degenerative lumbar spinal stenosis (Chronic) Spinal stenosis of lumbar region with neurogenic claudication Radiculopathy, lumbosacral region Symptoms and Signs Balance problem - Primary Relevant Orders Ambulatory referral order to Physical Therapy - Plan Findings consistent with spinal stenosis which is rather severe at multiple levels. Plan includes continued injection therapy on as needed basis. He does have some issues with gait imbalance and I would recommend use of a walker. In addition we will provided with orders for gait and balance training at physical therapy. If he fails to respond I can not exclude the stenosis contributing to the symptomatology in lower extremities which may require surgical consult. Other options to consider wouldbe mild procedure if injection therapy fails. Plan discussed with the patient and he wishes to proceed. We will follow up him in 2 months Time spent [id number] with this gentleman during today's encounter was 35 minutes. This dictation was performed using M*Modal dictation. There may be some appraisal analyst variances which are not appreciated or corrected in this note. S SALESPERSON documented in this encounter Plan of Treatment Not on file documented as of this encounter Visit Diagnoses Diagnosis Balance problem- Primary Abnormality of gait Abnormal gait Abnormality of gait Spinal stenosis of lumbar region with neurogenic claudication Radiculopathy, lumbosacral region Thoracic or lumbosacral neuritis or radiculitis, unspecified Degenerative lumbar spinal stenosis Spinal stenosis of lumbar region documented in this encounter Care Teams Television Newscast Director Relationship Specialty Start Date End Date Sohan Rojas MD [address] [place] [address] PCP - General Family Medicine 07/10/22 Lamin Mcgraw MD [address] [place] [address] Consulting Physician Urology 07/27/22 documented as of this encounter
--- OUTSIDE RECORDS SUMMARY | 2024-08-07 02:25 | XMS_ITS | Encounter Summary ---
Author Organization [facility] Healthcare Address [address] [place] [address] Care Team Providers Care Boatwright Name Role Phone Sohan Rojas MD Primary Care Provider [phone] Lamin Mcgraw MD Unavailable [phone] Reason for Referral * MRI/CAT/PET Scan (Routine) - Closed Specialty Diagnoses / Procedures Referred By Contac t Referred To Contact Radiology Diagnoses 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 behavioral disturbance, psychotic disturbance, mood disturbance, or anxiety (HCC) Procedures [place] [address] [address] Phone: tel: fax: [address] [phone] Referral ID Status Reason Start Date Expiration Date Visits Re quested Visits Authorized [id number] Closed 12/24/2022 01/23/2023 1 1 Reason for Visit * MRI/CAT/PET Scan (Routine) - Closed Specialty Diagnoses / Procedures Referred By Contac t Referred To Contact Radiology Diagnoses 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 behavioral disturbance, psychotic disturbance, mood disturbance, or anxiety (HCC) Procedures [place] [address] [address] Phone: tel: fax: [address] [address] Referral ID Status Reason Start Date Expiration Date Visits Re quested Visits Authorized [id number] Closed 12/24/2022 01/23/2023 1 1 Encounter Details Date Type Department Care Team (Latest Contact Info) Description 12/24/2022 4:17 PM CDT - 12/24/2022 11:59 PM CDT Hospital Encounter [facility] [address] [place] [address] 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 behavioral disturbance, psychotic disturbance, mood disturbance, or anxiety (HCC) Discharge Disposition: Discharge to home or [...] staff should administer the PHQ-9) 0 09/23/2022 [facility] of Occupat ional Health - Occupational Stress [...] on file Legal Sex Male 8:20 PM BIOSTATISTICIAN Gender Identity Male 03/24/2021 7:53 PM CDT [...] 3 10/23/2022 4 donepeziL (ARICEPT) 10 mg tabletIndications :Mild to Moderate Alzheimer's Type Dementia Take 1 tablet (10 mg total) by mouth nightly 90 tablet 1 12/03/2022 4 finasteride (PROSCAR) 5 mg tabletIndications :Prostate [...] mcg/actuation HFA aerosol inhaler Inhale 4 omega 0-hca-ggn-fish oil 360-1,200 mg capsule,delayed release(DR/EC) Take 1 [...] Name Priority Date/Time Associated Diagnosis Comments MRI BRAIN WO CONTRAST Schedule Routine, Read Routine (OP Routine) 12/24/2022 5:25 PM CDT 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 behavioral disturbance, psychotic disturbance, mood disturbance, or anxiety (HCC) documented in this encounter Results * MRI Brain WO Contrast (12/24/2022 5:25 PM CDT) Anatomical Region Laterality Modality Head and Neck N/A Magnetic Resonan ce 12/24/2022 7:20 PM CDT Narrative 12/24/2022 7:27 PM CDT EXAM DESCRIPTION: ?? MRI BRAIN WO CONTRAST REASON FOR STUDY: ?? Memory Loss ?? Pt's family has noticed a ??gradual decline in cognitive function over the past few years since the patient's past. ??He has been reported to repeat himself over and over again. ??He forgets to take his nighttime medication. ??He also has been having ?? increasing confusion as to where he is in when he saw his primary care in July of 2022 he was diagnosed with a dementia. ??The patient does not manage his own finances his daughter has taken over the finances over the past 2-3 years because he is ?? forgotten to pay bills he is gotten confused on managing his finances. ??He also has poor sleep. There is a family history of Alzheimer's disease. ?? TECHNIQUE: Multiplanar imaging includes non-contrasted T1, T2, FLAIR, and diffusion with ADC map sequences. Additional sequence(s) sensitive to blood products. Images stored on PACS. ? COMPARISON: ?? None available. FINDINGS: CEREBRUM: ?? No hemorrhage, edema, or mass effect. ? WHITE MATTER: ?? There are scattered bilateral subcortical and periventricular supratentorial white matter T2/FLAIR hyperintense foci, most compatible with mild chronic small vessel ischemic changes. ?? POSTERIOR FOSSA: ?? Brainstem and cerebellum appear unremarkable. DIFFUSION IMAGING: ?? No recent infarction. EXTRAAXIAL SPACES: ?? No hemorrhage. ??No mass. BRAIN VOLUME: ?? The ventricles and sulci are mild to moderately enlarged commensurate with global cerebral parenchymal volume loss. PITUITARY: ?? Unremarkable. VASCULATURE: ?? No flow disturbance identified. ORBITS: Right lens replacement noted. ?? No masses. Globes normal. PARANASAL SINUSES AND MASTOIDS: ?? Well-aerated with no fluid levels. No mucosa thickening. OTHER: ?? No other significant finding. IMPRESSION: 1. ??No acute intracranial abnormality. 2. ??Findings consistent with sequela of mild chronic ischemic microangiopathy and tsjx-bs-chkyneca global parenchymal atrophy. ?? THIS IS AN ELECTRONICALLY VERIFIED FINAL REPORT 12/24/2022 7:27 PM - Electronically signed by ??Steven Hartley M.D. MF: [email or web address] D: ??12/24/2022 7:27 PM T: ??12/24/2022 7:27 PM Report ID: [id number] Reading Location: ??[id number] Procedure Note Steven Hartley, DO - 12/24/2022 EXAM DESCRIPTION: MRI BRAIN WO CONTRAST REASON FOR STUDY: Memory Loss Pt's family has noticed a gradual decline in cognitive function over thepast few years since the patient's past. He has been reported to repeat himself over and over again. He forgets to take his nighttime medication.He also has been having increasing confusion as to where he is in when hesaw his primary care in July of 2022 he was diagnosed with a dementia. The patient does not manage his own finances his daughter has taken over the finances over the past 2-3 years because he is forgotten to pay bills heis gotten confused on managing his finances. He also has poor sleep. Thereis a family history of Alzheimer's disease. TECHNIQUE: Multiplanar imaging includes non-contrasted T1, T2, FLAIR, and diffusion with ADC map sequences. Additional sequence(s) sensitive Quantified Skin. Images stored on PACS. COMPARISON: None available. FINDINGS: CEREBRUM: No hemorrhage, edema, or mass effect. WHITE MATTER: There are scattered bilateral subcortical andperiventricular supratentorial white matter T2/FLAIR hyperintense foci, most compatiblewith mild chronic small vessel ischemic changes. POSTERIOR [...] AND MASTOIDS: Well-aerated with no fluid levels. Nomucosa thickening. OTHER: No other significant finding. IMPRESSION: 1. No acute intracranial abnormality. 2. Findings consistent with sequela of mild chronic ischemicmicroangiopathy and tuad-yk-njwkqkwt global parenchymal atrophy. THIS IS AN ELECTRONICALLY VERIFIED FINAL REPORT 12/24/2022 7:27 PM - Electronically signed by Steven Hartley M.D. MF: [email or web address] Report ID: [id number] Reading Location: [place] [address] [place], [place] IMG MRI PROCEDURES Final Res ult documented in this encounter Visit Diagnoses Diagnosis 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 behavioral disturbance, psychotic disturbance, mood disturbance, or anxiety (HCC) documented in this encounter Care Teams Boatwright Relationship Specialty Start Date End Date Sohan Rojas MD [address] [place] [address] PCP - General Family Medicine 07/10/22 Lamin Mcgraw MD [address] [place] [address] Consulting Physician Urology 07/27/22 documented as of this encounter
--- OUTSIDE RECORDS SUMMARY | 2024-08-07 02:25 | XMS_ITS | Encounter Summary ---
Author Organization [facility] Healthcare Address [address] [place] [address] Care Team Providers Care Customer Relations Specialist Name Role Phone Sohan Rojas MD Primary Care Provider Lamin Mcgraw MD Unavailable [phone] Manuel Chowdhury MD Unavailable Shahrzad SONI MD, Carlos M. Unavailable [phone] Reason for Referral * Diagnostic Imaging (Routine) - Closed Specialty Diagnoses / Procedures Referred By Contac t Referred To Contact Diagnoses MCI (mild cognitive impairment) Procedures [place] [address] [place] [address] Phone: tel: fax: [address] [phone] Referral ID Status Reason Start Date Expiration Date Visits Re quested Visits Authorized [id number] Closed 02/08/2023 03/09/2024 1 1 Reason for Visit * Diagnostic Imaging (Routine) - Closed Specialty Diagnoses / Procedures Referred By Daxa londono Referred To Contact Diagnoses MCI (mild cognitive impairment) Procedures [place] [address] [address] Phone: tel: fax: [address] [phone] Referral ID Status Reason Start Date Expiration Date Visits Re quested Visits Authorized [id number] Closed 02/08/2023 03/09/2024 1 1 Encounter Details Date Type Department Care Team (Latest Contact Info) Description 03/12/2023 9:54 AM CDT - 03/12/2023 11:59 PM CDT Hospital Encounter [facility] Diagnostic Imaging [address] [place] [address] Blanca Kumar Md MCI (mild cognitive impairment) Discharge Disposition: Discharge [...] staff should administer the PHQ-9) 0 01/21/2023 [facility] - Occupational Stress [...] on file 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 Gender Identity Male 03/24/2021 7:53 PM CDT Sexual Orientation Straight 03/24/2021 7: 53 PM CDT Occupation Industry Job Start Date Job End Date retired Not on file Not on file Not on file documented as of this encounter Last Filed Vital Signs Vital Sign Reading Time Taken Comments Blood Pressure 139/84 03/12/2023 11:32 AM CDT Pulse 68 03/12/2023 11:32 AM CDT Temperature 36.7 ??C (98 ??F) 03/12/2023 11: 32 AM CDT Respiratory Rate 18 03/12/2023 11:3 2 AM CDT Oxygen Saturation 96% 03/12/2023 11: 32 AM CDT Inhaled Oxygen Concentration - - Weight 72.5 kg (159 lb 12.8 oz) 023 10:32 AM CDT Height 175.3 cm (5' 9 ) 03/12/2023 10:3 2 AM CDT Body Mass Index 23.6 03/12/2023 10:32 AM CDT documented in this encounter Discharge Instructions * Attachments The following attachments cannot be sent through Care Everywhere. * Lumbar Puncture (Discharge Care) (Syrian) documented in this encounter Medications at Time [...] mcg/actuation HFA aerosol inhaler Inhale 4 omega [id number]-fish oil 360-1,200 mg capsule,delayed release(DR/EC) Take 1 [...] Procedure Name Priority Date/Time Associated Diagnosis Comments FL FLUORO GUIDED LUMBAR PUNCTURE Schedule Routine, Read Routine (OP Routine) 03/12/2023 11:47 AM CDT MCI (mild cognitive impairment) CYTOLOGY Routine 03/12/2023 12:00 AM CDT MCI (mild cognitive impairment) documented in this encounter Results * FL Fluoro Guided Lumbar Puncture (03/12/2023 11:47 AM CDT) Anatomical Region Laterality Modality Spine Right Computed Radiogr aphy 03/12/2023 11:5 1 AM CDT Impressions 03/12/2023 11:51 AM CDT Fluoroscopic guided lumbar puncture. Electronically signed by: Anil Villalta M.D. Narrative 03/12/2023 11:51 AM CDT EXAMINATION: FL FLUORO GUIDED LUMBAR PUNCTURE DATE: 03/12/2023 11:00 AM HISTORY: Alzheimer's disease FINDINGS: Risks and benefits of the procedure were discussed with the patient and informed consent was obtained. ??The patient was placed on the fluoroscopy table in the prone position. ??The patient's lower back was prepped and draped in the usual sterile fashion. ??Lidocaine was used to anesthetize the skin and subcutaneous tissues. ??Under fluoroscopic guidance, spinal needle was advanced into the thecal sac at the L3-L4 level. ??Clear colorless spinal fluid was aspirated and submitted for analysis.. ??The needle was removed and a Band-Aid was applied. ?? Procedure Note Anil Villalta MD - 03/12/2023 EXAMINATION: FL FLUORO GUIDED LUMBAR PUNCTURE DATE: 03/12/2023 11:00 AM HISTORY: Alzheimer's disease FINDINGS: Risks and benefits of the procedure were discussed with the patient and informed consent was obtained. The patient was placed on the fluoroscopy table in the prone position. The patient's lower back was prepped and draped in the usual sterile fashion. Lidocaine was used to anesthetize the skin and subcutaneous tissues. Under fluoroscopic guidance, spinal needle was advanced into the thecal sac at the L3-L4 level. Clear colorless spinal fluid was aspirated and submitted for analysis.. The needle was removed and a Band-Aid was applied. IMPRESSION: Fluoroscopic guided lumbar puncture. Electronically signed by: Anil Villalta M.D. Sea Markham II, MD IM FLUOROSCOPY PROCEDURES F inal Result * Cytology (03/12/2023 12:00 AM CDT) Fluid (Cerebrospinal Fluid (Cytology)) 03/12/2023 11:31 AM CDT Narrative PATHOLOGY CH - 03/15/2023 2:15 PM CDT EPIC results best viewed via link to PDF [facility] Department of Pathology [address] [place] [id number] Note to Patients: ??This report may contain a detailed description of human tissue sent by a health care provider to the laboratory for pathologic evaluation. ??The content of this report is essential for diagnosis and may provide important critical findings. ??This information may be unfamiliar to patients to review without a medical professional present. ?? It is advised that the patient review this report in the presence of a health care provider who can answer questions and explain the details. Final Report Patient Name: ??LILLIE VERA Address: ??[address] [facility], [place], [place] [address] Gender: ??M : ??1940 (Age: 82) Service: ?? Location: ?? Hospital # ??[id number] Patient Type: ?? Ancillary Taken: ??03/12/2023 Received: ?? 03/12/2023 Accessioned: ?? 03/12/2023 Reported: ?? 03/15/2023 Physician(s): ??Jim Riddle M.D. Diagnosis: Cerebrospinal fluid, cytology: ? - Negative for malignancy. Raymundo Tan M.D. Report Electronically Reviewed and Signed Out By ??Raymundo Ruano M.D. ??03/15/2023 14:15:23Specimen(s) Received: A: Cerebrospinal fluid cytology Clinical History: The patient is an 82 year old male with mild cognitive impairment. ?? Gross Description: 1 container received with 2.5 cc unfixed clear fluid. 1 ThinPrep and 1 air-dried cytospin made for Cruz stain. Microscopic Description: Microscopic examination of the cerebrospinal fluid (one ThinPrep slide and one air dried Cruz stained slide) reveals a minimally cellular specimen that is adequate for evaluation. The specimen consists of rare mature appearing lymphocytes. ??No malignant epithelial cells are seen. ?? The performance characteristics of some immunohistochemical stains, fluorescence in-situ hybridization tests and immunophenotyping by flow cytometry cited in this report (if any) were determined by the Surgical Pathology Department at [facility] as part of an ongoing production quality manager program and in compliance with federally mandated regulations drawn from the Clinical Laboratory Improvement Act of 1988 (CLIA '88). ??Some of these tests rely on the use of analyte specific reagents and are subject to specific labeling requirements by the US Food and Drug Administration. ??Such diagnostic tests may only be performed in a facility that is certified by the Department of Health and Human Services as a high complexity laboratory under CLIA '88. The FDA has determined that such clearance or approval is not necessary. ??This test is used for clinical purposes. ??It should not be regarded as investigational or for research. ??Nevertheless, federal rules concerning the medical use of analyte specific reagents require that the following disclaimer be attached to the report: This test was developed and its performance characteristics determined by the Surgical Pathology Department [facility]. ??It has not been cleared or approved by the U. S. Food and Drug Administration. Unless otherwise noted all cytology processing, staining and screening is performed at [facility] ([id number] [place] [address]). REPORT IMAGES AND SCANNED DOCUMENTS, IF INCLUDED, ONLY VIEWABLE IN PDF VERSION OF REPORT us Sea Markham II, MD LAB CYTOLOGY [place]AB[place] [id number] [address] [place] [id number] documented in this encounter Visit Diagnoses Diagnosis MCI (mild cognitive impairment) Mild cognitive impairment, so stated documented in this encounter Orders Discharge Count Last Ordered Date First Orde red Date DISCHARGE PATIENT 1 03/12/2023 documented in this encounter Care Teams Customer Relations Specialist Relationship Specialty Start Date End Date Sohan Rojas MD [address] [facility] [address] [place] [address] PCP - General Family Medicine 07/10/22 Lamin Mcgraw MD [address] [place] [address] Consulting Physician Urology 07/27/22 Manuel Chowdhury MD [address] [place] [address] Consulting Physician Neurology 01/21/23 [place] [address] [facility] [address] [place] [address] Consulting Physician Neurology 01/21/23 documented as of this encounter
--- OUTSIDE RECORDS SUMMARY | 2024-08-07 02:25 | XMS_ITS | Encounter Summary ---
Author Organization [facility] Address [address] [facility] [address] [place] [address] Care Team Providers Care Steel Worker Name Role Phone Sohan Rojas MD Primary Care Provider [phone] Lamin Mcgraw MD Unavailable [phone] Manuel Marina MD Unavailable Shahrzad SONI MD, Carlos M. Unavailable [phone] Reason for Visit * Consultation (Routine) - Closed Specialty Diagnoses / Procedures Referred By Daxa londono Referred To Contact Sleep Medicine Diagnoses Insomnia, [place] [address] [facility] [address] [place] [address] Phone: tel: fax: Manuel Marina MD [address] [place] [address] [address] JACQUELINE Hughes [facility] [address] [place] [address] Phone: tel: fax: Referral ID Status Reason Start Date Expiration Date V isits Requested Visits Authorized [id number] Closed Specialty Services Required 12/03/2022 01/02/2024 1 1 Encounter Details Date Type Department Care Team (Late st Contact Info) Description 02/05/2023 10:45 AM CDT Office Visit [facility] [address] [facility] [address] [place] [id number] Manuel Marina MD [address] [place] [address] [address] JACQUELINE Hughes [facility] [address] [place] [address] Obstructive sleep apnea syndrome; Irregular circadian rhythm sleep-wake; Shift work sleep disorder; Obstructive sleep apnea (adult) (pediatric); Obstructive sleep apnea syndrome Social History Tobacco Use Types Packs/Day Years [...] and Family Twice a week 05/31/2019 Attends [employer] Never 05/31 Active Member of [employer]s [...] staff should administer the PHQ-9) 0 01/21/2023 [facility] - [...] on file 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 Gender Identity Male 03/24/2021 7:53 PM CDT Sexual Orientation Straight 03/24/2021 7: 53 PM CDT Occupation Industry Job Start Date Job End Date retired Not on file Not on file Not on file documented as of this encounter Last Filed Vital Signs Vital Sign Reading Time Taken Comments Blood Pressure 152/81 02/05/2023 10:45 AM CDT Pulse 68 02/05/2023 10:45 AM CDT Temperature - - Respiratory Rate 18 02/05/2023 10:45 AM CDT Oxygen Saturation 97% 02/05/2023 10:45 AM CDT Inhaled Oxygen Concentration - - Weight - - Height - - Body Mass Index - - documented in this encounter Progress Notes * Manuel Marina MD - 02/05/2023 10:45 AM CDT Chief complaints: Snoring, unrefereshing sleep and hypersomnia HPI Mr. Johnston presents for evaluation. He has been requested seen by Dr. Markham for opinion regarding his above symptoms. Patient reports that he goes to bed at 2:00 a.m. and awakens at 6:00 a.m.. He is worked all 3 shifts in his life. As a consequence he is never gotten more than 46 hours of sleep. Endorses symptoms of loud snoring. Denies witnessed stoppage with while sleeping awakening gasping for air, restless sleep and talking sleep walking sleep, creepy crawly feeling legs, leg jerks or nighttime wheezing awakens multiple times usually go to the restroom. Falls asleep within matter of minutes awakens with a perception of a refreshing but sometimes non refreshing sleep. Feels sleepy and tiredin the daytime Alpine Sleepiness Scale score is 14. Does take daytime naps these naps can last [id number] minute. He finds these naps to be refreshing. He does not dream during these naps. Denies symptoms of cataplexy, hypnagogic hallucination and sleep paralysis. Review of Systems Past Medical History: Diagnosis Date Anxiety Arthritis Asthma Cancer (CMS/HCC) ([facility]) 2018? GERD (gastroesophageal reflux disease) Heart disease Hyperlipidemia Insomnia Osteoporosis Personal history of other diseases of the respiratory system Personal history of asthma - (Added by [employer]) Rheumatic fever Sleep apnea Diagnosed years ago - not sure if it's still pertinent Sleep difficulties Social History Tobacco Use Smoking status: Former Types: Pipe Quit date: 11/28/1979 Years since quittin.2 Smokeless tobacco: Never Substance and Sexual Activity Drug use: Never Sexual activity: Not Currently control/protection: None Alcohol Use: Not At Risk (12/19/2020) AUDIT-C Frequency of Alcohol Consumption: Never Average Number of Drinks: Not on file Frequency of Binge Drinking: Not on file Family History Problem Relation Age of Onset Hypertension Other Hypertension - (Added by [employer] Conv) Stroke Other Stroke Syndrome - (Added by [employer] Conv) Tuberculosis Mother Family history of tuberculosis - (Added by [employer] Conv) Arthritis Mother Hypertension Mother Stroke Mother No Known Problems Father No Known Problems Daughter No Known Problems Son Alzheimer's disease Maternal Grandmother Memory loss Maternal Grandmother Alzheimer's disease Paternal Grandmother Memory loss Paternal Grandmother BP 152/81 (BP Location: Right arm, Patient Position: Sitting) Pulse 68 Resp 18 SpO2 97% Physical Exam Constitutional: Elderly gentleman in no distress HENT: Head: Normocephalic and atraumatic. Mouth/Throat: Oropharynx is clear and moist. Eyes: Conjunctivae and EOM are normal. eye exhibits no discharge. No scleral icterus. Neck: Normal range of motion. Neck supple. No thyromegaly present. Cardiovascular: Normal rate, regular rhythm and normal heart sounds. Exam reveals no gallop and no friction rub. No murmur heard. Pulmonary/Chest: Effort normal and breath sounds normal. No respiratory distress. has no wheezes. has no rales. Exhibits no tenderness. Abdominal: Soft. exhibits no distension and no mass. There is no tenderness. Musculoskeletal: Normal passive range of movements; no muscle tenderness Neurological: Alert and oriented to person, place, and time. No cranial nerve deficit. Exhibits normal muscle tone. Skin: Skin is warm. No rash noted. No erythema. Psychiatric: normal mood and affect. Judgment normal. Review of data: MRI brain from 12/24/2022 was reviewed. Evidence of mild chronic ischemic microangiopathic changes with pdes-[id number]-smboaqtn global parenchymal atrophy noted Metabolic panel from 01/29/2023: Glucose 102, BUN 18, creatinine 0.90, sodium 141, potassium 4.1 chloride 107, CO2 26 calcium 9.4 LFTs were normal. Progress notes from 01/21/[address] Rojas was reviewed summer the report reveals an 82 year presenting for assessment. Patient has evidence of cognitive impairment based on drug observation. Recommend PSA screen. Continue Aricept Aricept. Recommend polyneuropathy management. AP 1. Obstructive sleep apnea: Endorses symptoms of snoring, unrefreshing sleep and excessive daytime sleepiness. The physiology of sleep disordered breathing and its increased association with hypertension, diabetes, heart arrhythmia, strokes, heart attacks, heart failure, hypersomnia, obesity and mood disorders was discussed. The patient was recommended a polysomnography assessment. Patient verbalizes understanding. Follow-up after sleep study. 2. Hypersomnia: Primarily from sleep fragmentation associated with uncontrolled sleep disordered breathing as well as sleep deprivation. Monitor response to therapy for the above. 3. Sleep deprivation Patient reports that he is only getting 4 hours of sleep. Recommend patient get an activity monitoring to assess his sleep-wake rhythm. In the interim, patient was discussed consult sleep deprivation sleep debt. This may account for the patient's extreme daytime sleepiness. 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, shift work type Obstructive sleep apnea (adult) (pediatric) Obstructive sleep apnea syndrome Obstructive sleep apnea (adult) (pediatric) documented in this encounter Orders Outpatient Referral Count Last Ordered Date Fir st Ordered Date AMB REFERRAL TO SLEEP MEDICINE 1 02/05/2023 documented in this encounter Care Teams Steel Worker Relationship Specialty Start Date End Date Sohan Rojas MD [address] [facility] [address] [place] [address] PCP - General Family Medicine 07/10/22 Lamin Mcgraw MD [address] [place] [address] Consulting Physician Urology 07/27/22 Manuel Marina MD [address] [place] [address] Consulting Physician Neurology 01/21/23 [place] [address] [facility] [address] [place] [address] Consulting Physician Neurology 01/21/23 documented as of this encounter
--- OUTSIDE RECORDS SUMMARY | 2024-08-07 02:25 | XMS_ITS | Encounter Summary ---
Author Organization [facility] Address [address] [facility] [address] [place] [address] Care Team Providers Care Layout Former Name Role Phone Sohan Rojas MD Primary Care Provider [phone] Lamin Mcgraw MD Unavailable [phone] Manuel Chowdhury MD Unavailable Shahrzad SONI MD, Carlos M. Unavailable [phone] Reason for Visit * Reason Comments Follow-up Pt is here for a 4 w k f/u Encounter Details Date Type Department Care Team (Latest Contact Info) Description 10/22/2022 4:15 PM CDT Office Visit [facility] Primary Care at [address] [address] Sohan Rojas MD [address] [place] [address] [address] [place] [address] 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 behavioral disturbance, psychotic disturbance, mood disturbance, or anxiety (HCC) (Primary Dx); Mild intermittent asthma without complication; Pure hypercholesterolemia Social History Tobacco Use Types Packs/Day Years [...] on file 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 Gender Identity Male 03/24/2021 7:53 PM CDT Sexual Orientation Straight 03/24/2021 7: 53 PM CDT Occupation Industry Job Start Date Job End Date retired Not on file Not on file Not on file documented as of this encounter Last Filed Vital Signs Vital Sign Reading Time Taken Comments Blood Pressure 136/80 10/22/2022 4:22 PM CDT Pulse 67 10/22/2022 4:22 PM CDT Temperature - - Respiratory Rate - - Oxygen Saturation 98% 10/22/2022 4:22 PM CDT Inhaled Oxygen Concentration - - Weight 73.5 kg (162 lb) 10/22/2022 4:22 PM CDT Height 177.8 cm (5' 10 ) 10/22/2022 4:22 PM CDT Body Mass Index 23.24 10/22/2022 4:22 PM CDT documented in this encounter Patient Instructions * Patient Instructions* Sohan Rojas MD - 10/22/2022 4:15 PM CDT Will continue Aricept, Breo Seem to be doing well EKG did not show atrial fibrillation or ischemia, but frequent premature ventricular contractions. We will revisit but no intervention at this time. Thanks for coming in today! My medical assistants and I are thankful you have trusted us with your care, and hope that you received EXCELLENT care today! Please do not hesitate to call if you have any questions or concerns at [phone]. You may receive a phone call, text, MYCHART message, or e-mail asking about your care today. We would love to hear your feedback on how EXCELLENT your care wastoday! Wishing you better health, always. Dr. Rojas * Attachments The following attachments cannot be sent through Care Everywhere. * Premature Ventricular Contractions (General Information) (Indonesian) documented in this encounter Progress Notes * Sohan Rojas MD - 10/22/2022 4:15 PM CDT Images from the original note were not included. Subjective/Objective Patient ID: Gulshan Johnston is a 82 y.o. male. Chief Complaint Follow-up (Pt is here for a 4 wk f/u) His daughter thinks the Aricept is helping, Gulshan thinkgs it is gradually getting better Breathing is better with the Breo PT continues Current Outpatient Medications: albuterol HFA (PROVENTIL HFA,VENTOLIN [...] times a day , Disp: , Rfl: donepeziL (ARICEPT) 5 mg tablet, Take 1 tablet (5 mg total) by mouth nightly, Disp: 30 tablet, Rfl:3 finasteride (PROSCAR) 5 mg tablet, Take 1 tablet (5 mg total) by mouth daily, Disp: 90 tablet, Rfl:1 fluticasone furoate-vilanteroL (Breo Ellipta) 100-25 mcg/dose diskus inhaler, Inhale 1 puff daily, Disp: 3 each, Rfl: 1 fluticasone propionate (FLONASE) 50 mcg/actuation nasal spray, Administer 2 sprays into each nostril daily, Disp: 3 each, Rfl: 4 lecithin 1,200 mg capsule, Take 1 capsule by mouth 2 (two) times a day, Disp: , Rfl: mometasone 50 mcg/actuation HFA aerosol inhaler, Inhale, Disp: , Rfl: omega 8-rdw-dpm-fish oil 360-1,200 mg capsule,delayed release(DR/EC), Take 1 capsule by mouth daily, Disp: , Rfl: omeprazole (PriLOSEC) 20 mg capsule, Take 1 capsule (20 mg total) by mouth daily, Disp: 90 capsule,Rfl: 1 oxyCODONE-acetaminophen (PERCOCET) 5-325 mg per tablet, Take 1 tablet by mouth every 6 (six) hours as needed for pain Do not exceed 6 tablets per day., Disp: 90 tablet, Rfl: 0 peg 400-propylene glycol (SYSTANE) 0.4-0.3 % ophthalmic solution, Administer 1 drop into both eyes as needed, Disp: , Rfl: tamsulosin (FLOMAX) 0.4 mg extended release capsule, Take 1 capsule (0.4 mg total) by mouth daily, Disp: 90 capsule, Rfl: 1 vitamin b complex (Vitamins B Complex) tablet, Take 1 tablet by mouth daily, Disp: , Rfl: vitamin E (AQUASOL E) 1,000 unit capsule, Take 5 capsules (5,000 Units total) by mouth daily, Disp:, Rfl: diclofenac DR (VOLTAREN) 75 mg EC tablet, Take 1 tablet (75 mg total) by mouth 2 (two) times a day,Disp: 180 tablet, Rfl: 3 Current Facility-Administered Medications: cefTRIAXone (ROCEPHIN) 350 mg/mL intramuscular injection 1,000 mg, 1,000 mg, intramuscular, Q24H [facility] James P., MD, 1,000 mg at 09/17/20 0955 Review of Systems Constitutional: Negative. Neurological: Negative. Psychiatric/Behavioral: Positive for confusion and decreased concentration. Negative for agitation,self-injury and suicidal ideas. The patient is not nervous/anxious. BP 136/80 (BP Location: Right arm, Patient Position: Sitting) Pulse 67 Ht 177.8 cm (5' 10 ) Wt 73.5 kg (162 lb) SpO2 98% BMI 23.24 kg/m?? Physical Exam Vitals reviewed. Constitutional: Appearance: He is normal weight. HENT: Head: Normocephalic and atraumatic. Neurological: Mental Status: He is alert. Mental status is at baseline. He is disoriented. Cranial Nerves: No cranial nerve deficit. Motor: No weakness. Coordination: Coordination normal. Psychiatric: Mood and Affect: Mood normal. No visits with results within 1 Month(s) from this visit. Latest known visit with results is: Orders Only on 08/19/2022 Component Date Value Ref Range Status Folate, Serum 08/19/2022 >24.0 ng/mL Final Comment: Reference Range Low: <3.4 Borderline: 3.4-5.4 Normal: >5.4 Vitamin B12 08/19/2022 639 200 - 1,100 pg/mL Final TSH 08/19/2022 1.84 0.40 - 4.50 mIU/L Final Assessment/Plan Diagnoses and all orders for this visit: 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 behavioral disturbance, psychotic disturbance, mood disturbance, or anxiety (HCC) (Primary) Assessment & Plan: Will continue Aricept, Breo Seem to be doing well EKG did not show atrial fibrillation or ischemia, but frequent premature ventricular contractions. We will revisit but no intervention at this time. Mild intermittent asthma without complication - TSH reflex to free T4; Future - ECG 12 lead Pure hypercholesterolemia - CBC with auto differential; Future - Comprehensive metabolic panel; Future - Lipid panel; Future - ECG 12 lead Sohan Rojas MD This office note has been partially dictated using [employer] software, and as a result portions of the record may have been created with this software. Occasional wrong-word or '[id number]-[id number]' substitutions may have occurred due to the inherent limitations of voice recognition software. Read the chartcarefully and recognize, using context, where substitutions have occurred. documented in this encounter Procedure Notes * Sohan Rojas MD - 10/22/2022 4:15 PM CDTAssociated Order(s): ECG 12 lead Pre-Procedure Diagnose(s): Mild intermittent asthma without complication; Pure hypercholesterolemia Post-Procedure Diagnose(s): Mild intermittent asthma without complication; Pure hypercholesterolemia ECG 12 lead Date/Time: 10/22/2022 4:43 PM Performed by: Sohan Rojas MD Authorized by: Sohan Rojas MD Comparison: compared with previous ECG Rhythm: sinus rhythm Ectopy: frequent PVCs Rate: normal QRS axis: normal Conduction: conduction normal Clinical impression: non-specific ECG documented in this encounter Miscellaneous Notes * Assessment & Plan Note - Sohan Rojas MD - 10/26/2022 10:02 AM CDT Associated Problem(s): 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 behavioral disturbance, psychotic disturbance, mood disturbance, or anxiety (HCC) Will continue Aricept, Breo Seem to be doing well EKG did not show atrial fibrillation or ischemia, but frequent premature ventricular contractions. We will revisit but no intervention at this time. * Addendum Note - Marky Marx MA - 10/22/2022 4:15 PM CDTAddended by: MARKY MARX on: 01/27/2023 03:28 PM Modules accepted: Orders * Addendum Note - Marky Marx MA - 10/22/2022 4:15 PM CDTAddended by: MARKY MARX on: 01/27/2023 03:30 PM Modules accepted: Orders documented in this encounter Plan of Treatment Scheduled Orders Name Type Priority Associated Diagnoses Orde r Schedule TSH reflex to free T4 Lab Routine Mild intermittent asthma without complication Expected: 01/21/2023, Expires: 10/23/2023 documented as of this encounter Procedures Procedure Name Priority Date/Time Associated Diagnosis Comments THYROID FUNCTION CASCADE Routine 01/29/2023 11:40 AM CDT CBC WITH AUTO DIFFERENTIAL Routine 01/29/2023 11:40 AM CDT Pure hypercholesterolemia LIPID PANEL Routine 01/29/2023 11:40 AM CDT Pure hypercholesterolemia COMPREHENSIVE METABOLIC PANEL Routine 01/29/2023 11:40 AM CDT Pure hypercholesterolemia ECG 12-LEAD Routine 10/22/2022 4:43 PM CDT Mild intermittent asthma without complication Pure hypercholesterolemia documented in this encounter Results * TSH reflex to free T4 (01/29/2023 11:40 AM CDT) TSH 2.48 0.40 - 4.50 mIU/L [facility] 01/29/2023 11:4 0 AM CDT 01/29/2023 11:40 AM CDT Narrative [facility] - 01/31/2023 12:00 PM CDT FASTING:NO FASTING: NO us Sohan oRjas MD LAB BLOOD ORDERABLES Final Result [facility] [address] [place] [address] * (ABNORMAL) CBC with auto differential (01/29/2023 11:40 AM CDT) Pathologist [facility] [place] WBC 5.8 3.8 - 10.8 Thousand/u L [facility] RBC, POC 4.03(L) 4.20 - 5.80 Million/uL [facility] Hgb 13.3 13.2 - 17.1 g/dL [facility] Hct 37.9(L) 38.5 - 50.0 % [facility] MCV 94.0 80.0 - 100.0 fL [facility] MCH 33.0 27.0 - 33.0 pg [facility] MCHC 35.1 32.0 - 36.0 g/dL [facility] Rdw 13.1 11.0 - 15.0 % [facility] Platelets 171 140 - 400 Thousand/u L [facility] MPV 10.2 7.5 - 12.5 fL [facility] Neutrophils, abs 3,735 1,500 - 7,800 cells/uL [facility] Lymphocytes, abs 1,293 850 - 3,900 cells/uL [facility] Monocyte abs 470 200 - 950 cells/uL [facility] Eosinophils, abs 249 15 - 500 cells/uL [facility] Basophils, abs 52 0 - 200 cells/uL [facility] Neutrophils 64.4 % [facility] Lymphocyte pct 22.3 % [facility] Monocytes 8.1 % [facility] Eosinophils 4.3 % [facility] Basophils 0.9 % [facility] Blood 01/29/2023 11:4 0 AM CDT 01/29/2023 11:40 AM CDT Narrative [facility] - 01/31/2023 12:00 PM CDT FASTING:NO FASTING: NO us Sohan Rojas MD LAB BLOOD ORDERABLES Final Result [facility] [address] [place] [address] * Comprehensive metabolic panel (01/29/2023 11:40 AM CDT) Pathologist [facility] [place] Glucose 102 65 - 139 mg/dL [facility] Comment: ? Non-fasting reference interval BUN 18 7 - 25 mg/dL [facility] Creatinine 0.90 0.70 - 1.22 mg/dL [facility] eGFR 86 > OR = 60 mL/min/1. 73m2 [facility] Comment: The eGFR is based on the CKD-EPI 2020 equation. To calculate the new eGFR from a previous Creatinine or Cystatin C result, go to https://www.kidney.org/professionals/ kdoqi/gfr%5Fcalculator BUN/creat ratio NOT APPLICABLE 6 - 22 (calc) [facility] Sodium 141 135 - 146 mmol/L [facility] Potassium, pl 4.1 3.5 - 5.3 mmol/L [facility] Chloride 107 98 - 110 mmol/L [facility] CO2 26 20 - 32 mmol/L [facility] Calcium 9.5 8.6 - 10.3 mg/dL [facility] Protein, sr 6.3 6.1 - 8.1 g/dL [facility] Albumin 4.2 3.6 - 5.1 g/dL [facility] GLOBULIN 2.1 1.9 - 3.7 g/dL (calc) [facility] Alb/glob ratio 2.0 1.0 - 2.5 (calc) [facility] Bilirubin, total 0.5 0.2 - 1.2 mg/dL [facility] Alk phos 58 35 - 144 U/L [facility] AST 22 10 - 35 U/L [facility] ALT (SGPT) 32 9 - 46 U/L [facility] Blood 01/29/2023 11:4 0 AM CDT 01/29/2023 11:40 AM CDT Narrative [facility] - 01/31/2023 12:00 PM CDT FASTING:NO FASTING: NO us Sohan Rojas MD LAB BLOOD ORDERABLES Final Result [facility] [address] [facility] [place] [address] * (ABNORMAL) Lipid panel (01/29/2023 11:40 AM CDT) Pathologist [facility] [place] Cholesterol 195 <200 mg/dL [facility] HDL 42 > OR = 40 mg/dL [facility] Triglycerides 150(H) <150 mg/dL [facility] LDL 127(H) mg/dL (calc) [facility] Comment: Reference [...] LDL-C. Harmeet SS et al. BECCA. 2013;310(19): 3372-2678 (http://education.CleanEdison.G.ho.st/faq/CHQ610) Chol/HDL ratio 4.6 <5.0 (calc) [facility] Non-HDL, (LDL+VLDL) 153(H) <130 mg/dL (calc) [facility] Comment: For patients with diabetes plus 1 major ASCVD risk factor, treating to a non-HDL-C goal of <100 mg/dL (LDL-C of <70 mg/dL) is considered a therapeutic option. Blood 01/29/2023 11:4 0 AM CDT 01/29/2023 11:40 AM CDT Narrative [facility] - 01/31/2023 12:00 PM CDT FASTING:NO FASTING: NO us Sohan Rojas MD LAB BLOOD ORDERABLES Final Result [facility] [address] [place] [address] * ECG 12-LEAD (10/22/2022 4:43 PM CDT) Narrative Sohan Rojas MD - 10/22/2022 4:43 PM CDT Sohan Rojas MD ? 10/26/2022 10:02 AM ECG 12 lead Date/Time: 10/22/2022 4:43 PM Performed by: Sohan Rojas MD Authorized by: Sohan Rojas MD Comparison: compared with previous ECG Rhythm: sinus rhythm Ectopy: frequent PVCs Rate: normal QRS axis: normal Conduction: conduction normal Clinical impression: non-specific ECG us Sohan Rojas MD ECG ORDERABLES Edited Resu lt - Final documented in this encounter Visit Diagnoses Diagnosis 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 behavioral disturbance, psychotic disturbance, mood disturbance, or anxiety (HCC)- Primary Mild intermittent asthma without complication Pure hypercholesterolemia documented in this encounter Care Teams Layout Former Relationship Specialty Start Date End Date Sohan Rojas MD [address] [place] [address] PCP - General Family Medicine 07/10/22 Lamin Mcgraw MD [address] [place] [address] Consulting Physician Urology 07/27/22 Manuel Chowdhury MD [address] [place] [address] Consulting Physician Neurology 01/21/23 [place] [address] [facility] [address], [place] [address] Consulting Physician Neurology 01/21/23 documented as of this encounter
--- OUTSIDE RECORDS SUMMARY | 2024-08-07 02:25 | XMS_ITS | Encounter Summary ---
Author Organization [facility] Address [address] [facility] [address] [place] [address] Care Team Providers Care Unishear Operator Name Role Phone Sohan Rojas MD Primary Care Provider [phone] Lamin Mcgraw MD Unavailable [phone] Encounter Details Date Type Department Care Team (Late st Contact Info) Description 12/02/2022 Telephone [facility] [address] [facility] [address] [place] [address] [place], [place] [id number] [place] [address] [address] [place] [address] Social History Tobacco Use Types [...] and Family Twice a week 05/31/2019 Attends [employer] Services Never 05/31 Active Member of Clubs [...] staff should administer the PHQ-9) 0 09/23/2022 [facility] [place] of Occupat ional Health - Occupational Stress [...] on file 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 documented in this encounter Plan of Treatment Not on file documented as of this encounter Visit Diagnoses Not on filedocumented in this encounter Care Teams Unishear Operator Relationship Specialty Start Date End Date Sohan Rojas MD [address] [facility] [address] [place] [address] PCP - General Family Medicine 07/10/22 Lamin Mcgraw MD [address] [place] [address] Consulting Physician Urology 07/27/22 documented as of this encounter
--- OUTSIDE RECORDS SUMMARY | 2024-08-07 02:25 | XMS_ITS | Encounter Summary ---
Author Organization [facility] Address [address] [facility] [address] [place] [address] Care Team Providers Care Autism Tutor Name Role Phone Sohan Rojas MD Primary Care Provider [phone] Lamin Mcgraw MD Unavailable [phone] Reason for Visit * Reason Onset Date Comments Referral Request 12/04/2022 Encounter Details Date Type Department Care Team (Late st Contact Info) Description 12/04/2022 Telephone [facility] Primary Care at [address] [address] Sohan Rojas MD [address] [place] [address] [address] [place] [address] Referral Request Social History Tobacco [...] and Family Twice a week 05/31/2019 Attends [employer] Never 05/31 Active Member of [employer]s [...] on file 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 * Telephone Encounter - Andrew Velasco - 12/04/2022 9:22 AM CDT Referral Provider Name (if patient is seeing a nurse practitioner or physician surgical supply assistant, list the SAP PP CONSULTANT/PA, but also their collaborating doctor): Dr Chowdhury Specialty: Neurology Address: [address], Zip: [place] [address] Diagnosis Code/Symptom/Reason Patient is being seen: calling in/sleep study Date of Appointment: February 05, 2023 NPI#: [id number] Tax ID#: [id number] Is insurance in chart up to date? Yes Caller???s Callback #: [phone] Additional Comments: Dominga (daughter) called and relayed they are needing referral for the sleep study. Dr Markham referredhim to Dr Chowdhury, but needing referral from Dr Rojas. Does message need to be routed? Yes-Action Needed documented in this encounter Plan of Treatment Not on file documented as of this encounter Visit Diagnoses Not on filedocumented in this encounter Care Teams Autism Tutor Relationship Specialty Start Date End Date Sohan Rojas MD [address] [facility] [address] [place] [address] PCP - General Family Medicine 07/10/22 Lamin Mcgraw MD [address] [place] [address] Consulting Physician Urology 07/27/22 documented as of this encounter
--- OUTSIDE RECORDS SUMMARY | 2024-08-07 02:25 | XMS_ITS | Encounter Summary ---
Author Organization [facility] Address [address] [facility] [address] [place] [address] Care Team Providers Care Retail Account Representative Name Role Phone Sohan Rojas MD Primary Care Provider [phone] Lamin Mcgraw MD Unavailable [phone] Reason for Referral * Consultation (Routine) - Closed Specialty Diagnoses / Procedures Referred By Daxa londono Referred To Contact Sleep Medicine Diagnoses [place], [place] [address] [address] Phone: tel: fax: Manuel Marina MD [address] [place] [address] [address] [place] [address] Phone: tel: fax: Referral ID Status Reason Start Date Expiration Date V isits Requested Visits Authorized [id number] Closed Specialty Services Required 12/03/2022 01/02/2024 1 1 Question Answer Please select the performing region: [facility] [[id number]] Please select the performing department: [facility] [[id number]] To provider: MANUEL MARINA [[id number]] # of visits: 1 * MRI/CAT/PET Scan (Routine) - Closed Specialty Diagnoses / Procedures Referred By Contsunita t Referred To Contact Radiology Diagnoses 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 behavioral disturbance, psychotic disturbance, mood disturbance, or anxiety (HCC) Procedures [place] [address] [place] [address] Phone: tel: fax: [address] [phone] Referral ID Status Reason Start Date Expiration Date Visits Re quested Visits Authorized [id number] Closed 12/24/2022 01/23/2023 1 1 Reason for Visit * Reason Comments Dementia Establish Care * Consultation (Routine) - Closed Specialty Diagnoses / Procedures Referred By Contac t Referred To Contact Neurology Diagnoses 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 behavioral disturbance, psychotic disturbance, mood disturbance, or anxiety (HCC) Sohan Rojas MD [address] [address] Phone: tel: fax: [place] [address] [place] [address] Phone: tel: fax: Referral ID Status Reason Start Date Expiration Date V isits Requested Visits Authorized [id number] Closed Specialty Services Required 09/23/2022 10/23/2023 4 4 Encounter Details Date Type Department Care Team (Late st Contact Info) Description 12/03/2022 8:30 AM CDT Office Visit [facility] [address] [facility] [address] [place] [id number] [place] [address] [place] [address] Insomnia, unspecified type (Primary Dx); Moderate late onset Alzheimer's dementia [...] and Family Twice a week 05/31/2019 Attends [employer] Services Never 05/31 Active Member of Clubs [...] staff should administer the PHQ-9) 0 09/23/2022 [facility] [...] on file 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 Gender Identity Male 03/24/2021 7:53 PM CDT Sexual Orientation Straight 03/24/2021 7: 53 PM CDT Occupation Industry Job Start Date Job End Date retired Not on file Not on file Not on file documented as of this encounter Last Filed Vital Signs Vital Sign Reading Time Taken Comments Blood Pressure 118/60 12/03/2022 8:24 AM CDT Pulse 65 12/03/2022 8:24 AM CDT Temperature - - Respiratory Rate 17 12/03/2022 8:24 AM CDT Oxygen Saturation 98% 12/03/2022 8:24 AM CDT Inhaled Oxygen Concentration - - Weight 71.3 kg (157 lb 4.8 oz) 12/03/2022 8:24 A M CDT Height 177.8 cm (5' 10 ) 12/03/2022 8:24 AM CDT Body Mass Index 22.57 12/03/2022 8:24 AM CDT documented in this encounter Ordered Prescriptions Prescription Sig Dispense Quantity Refills Last Filled Start Date End Date donepeziL (ARICEPT) 10 mg tabletIndications: Mild to Moderate Alzheimer's Type Dementia Take 1 tablet (10 mg total) by mouth nightly 90 tablet 1 12/03/2022 4 documented in this encounter Progress Notes * Sea Markham II, MD - 12/03/2022 8:30 AM CDT [facility] Neurology [facility] CONSULTATION 12/03/2022 OV: Consultation at the request of Dr. Rojas for an opinion regarding dementia. I have personally taken a history, examined the patient and determined the assessment and plan as outlined below. Chief Complaint. Chief Complaint Patient presents with Dementia Establish Care HPI. Patient is a 82 y.o. male patient of Dr. Linda Rojas The patient is seen for evaluation of a dementia. The patient is accompanied by his daughter. The patient lives by himself. He has been since 2019. The patient is reportedly more of a homebody he does not really do much in the way of social interactions the daughter reports that he is happyjust staying at home and watching television. They have noted a gradual decline in cognitive functio n over the past few years since the patient's past. He has been reported to repeat himself over and over again. He forgets to take his nighttime medication. He also has been having increasing confusion as to where he is in when he saw his primary care in July of 2022 he was diagnosed with adementia and and had an slums score of 15. He was given memantine which made his confusion worse hewas calling his daughter at home asking to be taken back to his house when he was already in his house. This confusion has resolved following discontinuation of memantine and he is now on donepezil 5mg per day that he tolerates. There is no report of any loss of appetite stomach upset or diarrheaand his confusion is much better. The patient feels that he is better on the medication he does notreally think that he has an issue with his memory his main concern is his left leg going numb and giving out from under him. He does have severe lumbar spinal stenosis and has been under the care of pain management in [facility]. The patient does not manage his own finances his daughter has taken over the finances over the past 2-3 years because he is forgotten to pay bills he is gotten confused on managing his finances. He also has poor sleep. He sleeps on a recliner. His hearing is not an issue. He is no other physical complaints. He has little social interaction. There benito family history of Alzheimer's disease. 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 HOME MEDICATIONS : albuterol HFA (PROVENTIL HFA,VENTOLIN HFA,PROAIR HFA) 90 mcg/actuation inhaler atorvastatin (LIPITOR) 20 mg tablet cholecalciferol, vitamin D3, 1,000 unit tablet,chewable diclofenac DR (VOLTAREN) 75 mg EC tablet donepeziL (ARICEPT) 5 mg tablet finasteride (PROSCAR) 5 mg tablet fluticasone furoate-vilanteroL (Breo Ellipta) 100-25 mcg/dose diskus inhaler omega 2-zuh-snn-fish oil 360-1,200 mg capsule,delayed release(DR/EC) omeprazole (PriLOSEC) 20 mg capsule tamsulosin (FLOMAX) 0.4 mg extended release capsule vitamin b complex (Vitamins B Complex) tablet vitamin E (AQUASOL E) 1,000 unit capsule cranberry extract 200 mg capsule fluticasone propionate (FLONASE) 50 mcg/actuation nasal spray lecithin 1,200 mg capsule mometasone 50 mcg/actuation HFA aerosol inhaler oxyCODONE-acetaminophen (PERCOCET) 5-325 mg per tablet peg 400-propylene glycol (SYSTANE) 0.4-0.3 % ophthalmic solution Allergies Allergen Reactions Other Sneezing Seasonal allergies Social History Tobacco Use Smoking status: Former Types: Pipe Quit date: 11/28/1979 Years since quittin.0 Smokeless tobacco: Never Substance and Sexual Activity [...] Memory loss Paternal Grandmother Review of Systems Constitutional: Negative for chills, decreased appetite, diaphoresis, fever, malaise/fatigue, nightsweats, weight gain and weight loss. HENT: Negative for congestion, hearing loss, hoarse voice, nosebleeds, sore throat and tinnitus. Eyes: Negative for blurred vision, double vision and visual halos. Cardiovascular: Negative for chest pain, claudication, dyspnea on exertion, irregular heartbeat, near-syncope, palpitations and syncope. Respiratory: Negative for cough, shortness of breath, sleep disturbances due to breathing and snoring. Endocrine: Negative for cold intolerance, heat intolerance, polydipsia, polyphagia and polyuria. Hematologic/Lymphatic: Negative for adenopathy and bleeding problem. Does not bruise/bleed easily. Skin: Negative for rash. Musculoskeletal: Negative for back pain, falls, joint pain, joint swelling, muscle cramps, muscle weakness, myalgias, neck pain and stiffness. Gastrointestinal: Negative for abdominal pain, bowel incontinence, constipation, diarrhea, dysphagia, jaundice, nausea and vomiting. Genitourinary: Negative for bladder incontinence, decreased libido, dysuria, flank pain, frequency,hematuria, hesitancy and incomplete emptying. Neurological: Positive for focal weakness and numbness. Negative for aphonia, brief paralysis, difficulty with concentration, disturbances in coordination, excessive daytime sleepiness, dizziness, headaches, light-headedness, loss of balance, paresthesias, seizures, sensory change, tremors, vertigoand weakness. Psychiatric/Behavioral: Negative for altered mental status, depression, hallucinations, memory loss, substance abuse and suicidal ideas. The patient does not have insomnia and is not nervous/anxious. Allergic/Immunologic: Negative for environmental allergies and HIV exposure. Physical Exam Vitals reviewed. Constitutional: Appearance: Normal appearance. HENT: Head: Normocephalic and atraumatic. Nose: Nose normal. Eyes: Extraocular Movements: Extraocular movements intact and EOM normal. Pupils: Pupils are equal, round, and reactive to light. Cardiovascular: Rate and Rhythm: Normal rate and regular rhythm. Pulmonary: Effort: Pulmonary effort is normal. Abdominal: Palpations: Abdomen is soft. Musculoskeletal: Cervical back: Normal range of motion. Right lower leg: No edema. Left lower leg: No edema. Skin: General: Skin is warm. Findings: No rash. Neurological: Mental Status: He is alert and oriented to person, place, and time. Motor: Motor strength is normal. Coordination: Ewoqzk-Hihe-Doumxv Test normal. Gait: Gait is intact. Deep Tendon Reflexes: Reflex Scores: Tricep reflexes are 1+ on the right side and 1+ on the left side. Bicep reflexes are 1+ on the right side and 1+ on the left side. Brachioradialis reflexes are 1+ on the right side and 1+ on the left side. Patellar reflexes are 1+ on the right side and 1+ on the left side. Achilles reflexes are 1+ on the right side and 1+ on the left side. Psychiatric: Speech: Speech normal. Neurologic Exam Mental Status Oriented to person, place, and time. Oriented to person. Oriented to place. Oriented to city and area. Disoriented to month, date, day and season. Oriented to year. Registration: recalls 3 of 3 objects. Recall of objects at 5 minutes: 0 of 3 objects recalled. Follows 3 step commands. Attention: normal. Concentration: normal. Speech: speech is normal Level of consciousness: alert Able to name object. Able to read. Able to repeat. Able to write. Normal comprehension. He is able to copy the Pineda figure MMSE=23/30 Cranial Nerves CN II Visual chapa full to confrontation. CN III, IV, Pupils are equal, round, and reactive to light. Extraocular motions are normal. Right pupil: Shape: regular. Reactivity: brisk. Left pupil: Shape: regular. Reactivity: brisk. CN III: no CN III palsy CN : no CN palsy Nystagmus: none Diplopia: none Ophthalmoparesis: none CN V Facial sensation intact. CN VII Facial expression full, symmetric. CN VIII CN VIII normal. Hearing: intact CN IX, X CN IX normal. CN X normal. Palate: asymmetric CN XI CN XI normal. Right sternocleidomastoid strength: normal Left sternocleidomastoid strength: normal CN XII CN XII normal. Tongue: not atrophic Motor Exam Muscle bulk: normal Overall muscle tone: normal Right arm pronator drift: absent Left arm pronator drift: absent Right leg tone: normal Left leg tone: normal Strength Strength 5/5 throughout. Sensory Exam Light touch normal. Pinprick normal. Gait, Coordination, and Reflexes Gait Gait: normal Coordination Finger to nose coordination: normal Tremor Resting tremor: absent Intention tremor: absent Action tremor: absent Reflexes Right brachioradialis: 1+ Left brachioradialis: 1+ Right biceps: 1+ Left biceps: 1+ Right triceps: 1+ Left triceps: 1+ Right patellar: 1+ Left patellar: 1+ Right achilles: 1+ Left achilles: 1+ Right personalized living manager: 1+ Left personalized living manager: 1+ Right plantar: normal Left plantar: normal Right ankle clonus: absent Left ankle clonus: absent Impression and Recommendations. The patient does have a dementia of the Alzheimer's type. In addition he also has insomnia. His L31aldmdz and TSH are all within normal limits. He needs further neuro imaging and I am ordering an MRI of the brain without contrast at [facility]. In addition since poor sleep can contribute to memory loss I have made a referral to Dr. Marina of the sleep medicine service. His donepezil dose will be increased to 10 mg a day. His daughter was recommended to purchase the book the 36 hour day and to get in touch with the Alzheimer's Association. The patient was encouraged to increase social interaction and exercise. The MRI of the brain will be reviewed once available and I will be in touch with the patient's daughter regarding the results and I will see him on a follow-up in 3 months. Sea Markham II, MD documented in this encounter Plan of Treatment Scheduled Referrals Name Type Priority Associated Diagnoses Orde r Schedule Ambulatory referral to Sleep Medicine Outpatient Referral Routine Insomnia, unspecified type Expected: 12/17/2022 (Approximate), Expires: 12/04/2023 documented as of this encounter Results * MRI Brain WO [...] sequela of mild chronic ischemic microangiopathy and pjok-my-kxxkisot global parenchymal atrophy. ?? THIS IS AN ELECTRONICALLY VERIFIED FINAL REPORT 12/24/2022 7:27 PM - Electronically signed by ??Steven Hartley M.D. MF: [email or web address] D: ??12/24/2022 7:27 PM T: ??12/24/2022 7:27 PM Report ID: [id number] Reading Location: ??[id number] Procedure Note Steven Hartley, DO - 12/24/2022 [...] with ADC map sequences. Additional sequence(s) sensitive Bomber[employer]. Images stored on PACS. COMPARISON: None available. [...] with sequela of mild chronic ischemicmicroangiopathy and xsjl-un-wtiruqqx global parenchymal atrophy. THIS IS AN ELECTRONICALLY VERIFIED FINAL REPORT 12/24/2022 7:27 PM - Electronically signed by Steven Hartley M.D. MF: TRISTAN Report ID: [id number] Reading Location: [place] [address] Sea Markham II, MD IM MRI PROCEDURES Final Res ult documented in this encounter Visit Diagnoses Diagnosis Insomnia, unspecified type- Primary 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 behavioral disturbance, psychotic disturbance, mood disturbance, or anxiety (HCC) 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 behavioral disturbance, psychotic disturbance, mood disturbance, or anxiety (HCC) documented in this encounter Discontinued Medications Medication Sig Discontinue Reason Start Date End Da te donepeziL (ARICEPT) 5 mg tabletIndications:Modera te to Severe Alzheimer's Type Dementia Take 1 tablet (5 mg total) by mouth nightly Dose adjustment 09/23/2022 12/03/2022 documented as of this encounter Orders Outpatient Referral Count Last Ordered Date Fir st Ordered Date AMB REFERRAL TO NEUROLOGY 1 12/03/2022 documented in this encounter Care Teams Retail Account Representative Relationship Specialty Start Date End Date Sohan Rojas MD [facility] [address] [address] PCP - General Family Medicine 07/10/22 Lamin Mcgraw MD [address] [place] [address] Consulting Physician Urology 07/27/22 documented as of this encounter
--- OUTSIDE RECORDS SUMMARY | 2024-08-07 02:25 | XMS_ITS | Encounter Summary ---
Author Organization [facility] Address [address] [facility] [address] [place] [address] Care Team Providers Care Finisher Denture Name Role Phone Sohan Rojas MD Primary Care Provider [phone] Lamin Mcgraw MD Unavailable [phone] Reason for Visit * Reason Onset Date Comments Medication Request 09/10/2022 Encounter Details Date Type Department Care Team (Late st Contact Info) Description 09/10/2022 Telephone [facility] Primary Care at [address] [address] Sohan Rojas MD [address] [place] [address] [address] [place] [address] Medication Request Social History Tobacco Use Types Packs/Day [...] and Family Twice a week 05/31/2019 Attends Yazidi Services Never 05/31 Active Member of Clubs [...] staff should administer the PHQ-9) 0 09/23/2022 [facility] - Occupational [...] on file 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 Rojas did say to hold the Namenda until follow up on 09/23/22 Caller???s Call back #: [phone] Does message need to be routed? Yes-FYI Only ASH AND WASH OPERATOR * Telephone Encounter - Cornelia Chamberlain MA - 09/10/2022 2:43 PM CST Medical Question/Miscellaneous Caller???s Concern: Daughter called back to check status on earlier question, advised per Dr. Rizzo can stop the Namenda. She is asking if he should wean off, or can he just stop. Also she is asking about something to help him sleep, the past couple of weeks he is not sleeping well worse than normal. Caller???s Call back #: [phone] Does message need to be routed?Yes-Action Needed ASH AND WASH OPERATOR * Telephone Encounter - Adore Mendiola - 09/10/2022 8:14 AM CST Medication Question/Clarification Medication Name(s): memantine (Namenda) 5 mg tablet What is the question or clarification needed? Daughter feels that this medication is making symptoms worse and wanting to know if this can be stopped. Also having increased trouble sleeping If needed, Pharmacy(s) medication(s) should be sent to: [facility]/pharmacy #[id number] - [place], [place] - [address] Caller???s Callback #: [phone] Additional Comments: Should they try to move appointment to a sooner date? Does message need to be routed? Yes-Action Needed ASH AND WASH OPERATOR documented in this encounter Plan of Treatment Not on file documented as of this encounter Visit Diagnoses Not on filedocumented in this encounter Care Teams Finisher Denture Relationship Specialty Start Date End Date Sohan Rojas MD [address] [address] PCP - General Family Medicine 07/10/22 Lamin Mcgraw MD [address] [place] [address] Consulting Physician Urology 07/27/22 documented as of this encounter
--- OUTSIDE RECORDS SUMMARY | 2024-08-07 02:25 | XMS_ITS | Encounter Summary ---
Author Organization [facility] Address [address] [facility] [address] [place] [address] Care Team Providers Care Operations Architect Name Role Phone Sohan Rojas MD Primary Care Provider [phone] Lamin Mcgraw MD Unavailable [phone] Manuel Chowdhury MD Unavailable Shahrzad SONI MD, Carlos M. 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 PT is refusing to go to the sleep lab but is choosing to wear the watch. PTs daughter decided to cancel Mar [address] Chowdhury and will continue trying to convince PT to attend SS appointment. * Telephone Encounter - Manuel Chowdhury MD - 03/08/2023 8:59 AM CDT The sleep study should be done in the next 3-4 weeks. We need smart watch data for at least 30 days. documented in this encounter Plan of Treatment Not on file documented as of this encounter Visit Diagnoses Not on filedocumented in this encounter Care Teams Operations Architect Relationship Specialty Start Date End Date Sohan Rojas MD [address] [facility] [address] [place] [address] PCP - General Family Medicine 07/10/22 Lamin Mcgraw MD [address] [place] [address] Consulting Physician Urology 07/27/22 Manuel Chowdhury MD [address] [place] [address] Consulting Physician Neurology 01/21/23 [place] [address] [facility] [address] [place] [address] Consulting Physician Neurology 01/21/23 documented as of this encounter
--- OUTSIDE RECORDS SUMMARY | 2024-08-07 02:25 | XMS_ITS | Encounter Summary ---
Author Organization [facility] Address [address] [facility] [address] [place] [address] Care Team Providers Care Belly Dancer Name Role Phone Sohan Rojas MD Primary Care Provider [phone] Lamin Mcgraw MD Unavailable [phone] Reason for Visit * Reason Onset Date Comments Referral Request 08/26/2022 Encounter Details Date Type Department Care Team (Late st Contact Info) Description 08/26/2022 Telephone [facility] Primary Care at [address] [address] Sohan Rojas MD [address] [place] [address] [address] [place] [address] Referral Request Social History Tobacco [...] and Family Twice a week 05/31/2019 Attends [employer] Services Never 05/31 Active Member of [...] staff should administer the PHQ-9) 0 08/18/2022 [facility] Occupat ional Health - Occupational [...] on file 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 RING SERVICE MANAGER * Telephone Encounter - Rosalina Lopez - 08/26/2022 10:10 AM CST Referral Provider Name (if patient is seeing a nurse practitioner or physician sales assistant displays, list the AIDS SOCIAL WORKER/PA, but also their collaborating doctor): Dr. Eron Corrales Specialty: podiatry Address: [address] [facility], [facility] [address] [facility] [address], Zip: [place] [address] Diagnosis Code/Symptom/Reason Patient is being seen: B35.1 and M20.42 Date of Appointment: 09/01/22 NPI#: [id number] Tax ID#: [id number] Is insurance in chart up to date? Yes, [employer] Caller???s Callback #: [phone] Additional Comments: please process and fax. Does message need to be routed?Yes-Action Needed RING SERVICE MANAGER documented in this encounter Plan of Treatment Not on file documented as of this encounter Visit Diagnoses Not on filedocumented in this encounter Care Teams Belly Dancer Relationship Specialty Start Date End Date Sohan Rojas MD [address] [facility] [address] [place] [address] PCP - General Family Medicine 07/10/22 Lamin Mcgraw MD [address] [place] [address] Consulting Physician Urology 07/27/22 documented as of this encounter
--- OUTSIDE RECORDS SUMMARY | 2024-08-07 02:25 | XMS_ITS | Encounter Summary ---
Author Organization [facility] Address [address] [facility] [address] [place] [address] Care Team Providers Care Practice Performance Manager Name Role Phone Sohan Rojas MD Primary Care Provider [phone] Lamin Mcgraw MD Unavailable [phone] Reason for Referral * Consultation (Routine) - Closed Specialty Diagnoses / Procedures Referred By Contac t Referred To Contact Neurology Diagnoses 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 behavioral disturbance, psychotic disturbance, mood disturbance, or anxiety (HCC) Sohan Rojas MD [address] [facility] [address] [place] [address] Phone: tel: fax: [place] [address] [address] [facility] [address] [place] [address] Phone: tel: fax: Referral ID Status Reason Start Date Expiration Date V isits Requested Visits Authorized [id number] Closed Specialty Services Required 09/23/2022 10/23/2023 4 4 Question Answer Please select the performing region: [facility] [[id number]] Please select the performing department: [facility] [[id number]] To provider: GERARDO MARKHAM II [[id number]] # of visits: 4 ITY ASSURANCE TESTER Reason for Visit * Reason Comments Follow-up Pt is here for a 4 w k f/u Encounter Details Date Type Department Care Team (Late st Contact Info) Description 09/23/2022 4:15 PM QUALITY ASSURANCE TESTER Office Visit [facility] Primary Care at [address] [address] Sohan Rojas MD [address] [facility] [address] [place] [address] 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 behavioral disturbance, psychotic disturbance, mood disturbance, or anxiety (HCC) (Primary Dx) Social History Tobacco Use [...] staff should administer the PHQ-9) 0 09/23/2022 [facility] of Occupat [...] on file Legal Sex Male 8:20 PM QUALITY ASSURANCE TESTER Gender Identity Male 03/24/2021 7:53 PM CDT Sexual Orientation Straight 03/24/2021 7: 53 PM CDT Occupation Industry Job Start Date Job End Date retired Not on file Not on file Not on file documented as of this encounter Last Filed Vital Signs Vital Sign Reading Time Taken Comments Blood Pressure 124/74 09/23/2022 4:23 PM QUALITY ASSURANCE TESTER Pulse 63 09/23/2022 4:23 PM QUALITY ASSURANCE TESTER Temperature 36.8 ??C (98.3 ??F) 09/23/2022 4:23 PM CS T Respiratory Rate - - Oxygen Saturation 98% 09/23/2022 4:23 PM QUALITY ASSURANCE TESTER Inhaled Oxygen Concentration - - Weight 74.3 kg (163 lb 11.2 oz) 09/23/2022 4:23 PM QUALITY ASSURANCE TESTER Height 177.8 cm (5' 10 ) 09/23/2022 4:23 PM QUALITY ASSURANCE TESTER Body Mass Index 23.49 09/23/2022 4:23 PM QUALITY ASSURANCE TESTER documented in this encounter Patient Instructions * Patient Instructions* Sohan Rojas MD - 09/23/2022 4:15 PM QUALITY ASSURANCE TESTER Aricept trial Thanks for coming in today! My medical assistants and I are thankful you have trusted us with your care, and hope that you received EXCELLENT care today! Please do not hesitate to call if you have any questions or concerns at [phone]. You may receive a phone call, text, MYCHART message, or e-mail asking about your care today. We would love to hear your feedback on how EXCELLENT your care wastoday! Wishing you better health, always. Dr. Rojas ITY ASSURANCE TESTER * Attachments The following attachments cannot be sent through Care Everywhere. * Memory Loss in Older Adults (General Information) (Chadian) * Donepezil (By mouth) (Chadian) documented in this encounter Ordered Prescriptions Prescription Sig Dispense Quantity Refills Last Filled Start Date End Date donepeziL (ARICEPT) 5 mg tabletIndications: Moderate to Severe Alzheimer's Type Dementia Take 1 tablet (5 mg total) by mouth nightly 30 tablet 3 09/23/2022 3 documented in this encounter Progress Notes * Sohan Rojas MD - 09/23/2022 4:15 PM CST Images from the original note were not included. Subjective/Objective Patient ID: Gulshan Johnston is a 82 y.o. male. Chief Complaint Follow-up (Pt is here for a 4 wk f/u) His daugher reports his confusion seemed to have worsened on the Namenda Memory Loss Patient reports onset of memory loss was more than 1 year ago. Onset quality is sudden. Symptoms associated with memory loss include changes in short-term memory, difficulty recalling words, repetitive questions, day/night behavior changes and disorientation outside familiar environments. Symptoms do not include changes in long-term memory. Patient does not have the following behavorial problems associated with memory loss: paranoia, suspiciousness, hallucinations, delusions or agitation. Family and/or patient concerns for memory loss include medication errors, wandering, driving and preparing meals. The family monitors medication usage. Current Outpatient Medications: albuterol HFA (PROVENTIL HFA,VENTOLIN [...] aerosol inhaler, Inhale, Disp: , Rfl: omega 9-dmy-iep-fish oil 360-1,200 mg capsule,delayed release(DR/EC), Take 1 [...] Complex) tablet, Take 1 tablet by mouth daily , Disp: , Rfl: vitamin E (AQUASOL E) 1,000 unit capsule, Take 5,000 Units by mouth daily , Disp: , Rfl: memantine (NAMENDA) 5 mg tablet, Take 1 tablet (5 mg total) by mouth 2 (two) times a day (Patient not taking: Reported on 09/23/2022), Disp: 180 tablet, Rfl: 1 Current Facility-Administered Medications: cefTRIAXone (ROCEPHIN) 350 mg/mL intramuscular injection 1,000 mg, 1,000 mg, intramuscular, Q24H [facility]., MD, 1,000 mg at 09/17/20 0955 Review of Systems Constitutional: Negative for activity change, chills, fatigue and fever. Neurological: Negative for dizziness, facial asymmetry, light-headedness, numbness and headaches. Psychiatric/Behavioral: Positive for confusion, decreased concentration and sleep disturbance. Negative for agitation, behavioral problems, dysphoric mood, hallucinations, self-injury and suicidal ideas. The patient is not nervous/anxious and is not hyperactive. BP 124/74 (BP Location: Left arm, Patient Position: Sitting) Pulse 63 Temp 36.8 ??C (98.3 ??F) (Oral) Ht 177.8 cm (5' 10 ) Wt 74.3 kg (163 lb 11.2 oz) SpO2 98% BMI 23.49 kg/m?? Physical Exam Vitals reviewed. Constitutional: Appearance: He is normal weight. Neurological: Mental Status: He is alert. Mental status is at baseline. He is disoriented. Psychiatric: Attention and Perception: Attention normal. Mood and Affect: Mood normal. Speech: Speech normal. Behavior: Behavior is cooperative. Thought Content: Thought content normal. Cognition and Memory: Cognition is impaired. Memory is impaired. [facility] Mental Status Assesment Data: Able to state day of the week?: Yes Able to state year?: Yes Able to name state?: Yes able to state how much money spent?: Yes Able to state how much money is left?: No How many animals named in one minute?: 10 to 14 Number of items named?: none Able to state numbers backward?: none Hours marked correctly?: No Time marked correctly?: No Placed X in triangle?: Yes Able to idenify larger figure?: Yes Able to remember female name?: No Able to state what work she did?: Yes Able to state when she went back to work?: Yes Able to state what state she lived in?: No Total Score:: 12 No visits with results within 1 Month(s) [...] disturbance, mood disturbance, or anxiety (HCC) (Primary) Comments: SLUMS test repeated, confirms prior score decreased with repeat Namenda d/c'd; Aricept trial neuro referral Orders: - Ambulatory referral to Neurology; Future - donepeziL (ARICEPT) 5 mg tablet; Take 1 tablet (5 mg total) by mouth nightly Sohan Rojas MD This office note has been partially dictated using Insight[employer] software, and as a result portions of the record may have been created with this software. Occasional wrong-word or 'pfsfa-p-cecr' substitutions may have occurred due to the inherent limitations of voice recognition software. Read the chartcarefully and recognize, using context, where substitutions have occurred. ITY ASSURANCE TESTER documented in this encounter Plan of Treatment Scheduled Referrals Name Type Priority Associated Diagnoses Order Schedule Ambulatory referral to Neurology Outpatient Referral Routine 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 behavioral disturbance, psychotic disturbance, mood disturbance, or anxiety (HCC) Expected: 10/07/2022 (Approximate), Expires: 09/24/2023 documented as of this encounter Visit Diagnoses Diagnosis 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 behavioral disturbance, psychotic disturbance, mood disturbance, or anxiety (HCC)- Primary documented in this encounter Discontinued Medications Medication Sig Discontinue Reason Start Date End Da te memantine (NAMENDA) 5 mg tablet Take 1 tablet (5 mg total) by mouth 2 (two) times a day Side effects 09/23/2022 09/23/2022 documented as of this encounter Care Teams Practice Performance Manager Relationship Specialty Start Date End Date Sohan Rojas MD [address] [facility] [address] [place] [address] PCP - General Family Medicine 07/10/22 Lamin Mcgraw MD [address] [place] [address] Consulting Physician Urology 07/27/22 documented as of this encounter
--- OUTSIDE RECORDS SUMMARY | 2024-08-07 02:25 | XMS_ITS | Encounter Summary ---
Author Organization [facility] Address [address] [facility] [address] [place] [address] Care Team Providers Care Geoint Analyst Name Role Phone Sohan Rojas MD Primary Care Provider [phone] Lamin Mcgraw MD Unavailable [phone] Reason for Visit * Reason Onset Date Comments Medical Question/Miscellaneous 10/01/2022 Encounter Details Date Type Department Care Team (Late st Contact Info) Description 10/01/2022 Telephone [facility] Primary Care at [address] [address] Sohan Rojas MD [address] [place] [address] [address] [place] [address] Medical Question/Miscellaneous Social History Tobacco [...] and Family Twice a week 05/31/2019 Attends [employer] Services Never 05/31 Active Member of Clubs [...] should administer the PHQ-9) 0 09/23/2022 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 Gender Identity Male 03/24/2021 7:53 PM CDT Sexual Orientation Straight 03/24/2021 7: 53 PM CDT Occupation Industry Job Start Date Job End Date retired Not on file Not on file Not on file documented as of this encounter Miscellaneous Notes * Telephone Encounter - GuadalupeYovany - 10/01/2022 9:05 AM CDT Medical Question/Miscellaneous Caller???s Concern: Spoke with patients daughter requesting referral information for neurologist because they have not gotten follow up GERARDO BAZAN II Phone #: [phone] Fax #: [phone] Address: [address] [facility] [address] [facility] [address] Caller???s Call back #: [phone] Does message need to be routed?No documented in this encounter Plan of Treatment Not on file documented as of this encounter Visit Diagnoses Not on filedocumented in this encounter Care Teams Geoint Analyst Relationship Specialty Start Date End Date Sohan Rojas MD [address] [facility] [facility] [address] [place] [address] PCP - General Family Medicine 07/10/22 Lamin Mcgraw MD [address] [place] [address] Consulting Physician Urology 07/27/22 documented as of this encounter
--- OUTSIDE RECORDS SUMMARY | 2024-08-07 02:25 | XMS_ITS | Encounter Summary ---
Author Organization [facility] Address [address] [facility] [address] [place] [address] Care Team Providers Care Manager Willow Name Role Phone Sohan Rojas MD Primary Care Provider [phone] Lamin Mcgraw MD Unavailable [phone] Encounter Details Date Type Department Care Team (Late st Contact Info) Description 08/19/2022 Orders Only [facility] Primary Care at [address] [address] Lashanda Newell NP [address] [place] [address] [address] [place] [address] Social History Tobacco Use Types [...] and Family Twice a week 05/31/2019 Attends Baptism Services Never 05/31 Active Member of Clubs [...] staff should administer the PHQ-9) 0 08/18/2022 [facility] of Occupat ional Health - [...] on file Legal Sex Male 8:20 PM FUNERAL CAR DRIVER Gender Identity Male 03/24/2021 7:53 PM CDT Sexual Orientation Straight 03/24/2021 7: 53 PM CDT Occupation Industry Job Start Date Job End Date retired Not on file Not on file Not on file documented as of this encounter Plan of Treatment Not on file documented as of this encounter Procedures Procedure Name Priority Date/Time Associated Diagnosis Comments TSH W/REFL FT4 Routine 08/19/2022 2:19 PM FUNERAL CAR DRIVER FOLATE Routine 08/19/2022 2:19 PM FUNERAL CAR DRIVER VITAMIN B12 Routine 08/19/2022 2:19 PM FUNERAL CAR DRIVER documented in this encounter Results * TSH W/REFL FT4 (08/19/2022 2:19 PM FUNERAL CAR DRIVER) Pathologist [facility] TSH 1.84 0.40 - 4.50 mIU/L [facility] 08/19/2022 2:19 PM FUNERAL CAR DRIVER 08/19/2022 2:21 PM FUNERAL CAR DRIVER us Lashanda Newell MECHANIC SENIOR LAB BLOOD ORDERABLES Final Resul t Performing Organization Address [facility] de Phone Number [facility] [address] [place] [address] * Vitamin B12 (08/19/2022 2:19 PM FUNERAL CAR DRIVER) Pathologist [facility] Vitamin B12 639 200 - 1,100 pg/mL [facility] 08/19/2022 2:19 PM FUNERAL CAR DRIVER 08/19/2022 2:21 PM FUNERAL CAR DRIVER us Lashanda Newell MECHANIC SENIOR LAB BLOOD ORDERABLES Final Resul t Performing Organization Address [facility] de Phone Number [facility] [address] [place] [address] * Folate (08/19/2022 2:19 PM FUNERAL CAR DRIVER) Pathologist [facility] Folate, Serum >24.0 ng/mL [facility] Comment: ? Reference Range ? Low: ? <3.4 ? Borderline: ?3.4-5.4 ? Normal: ?>5.4 08/19/2022 2:19 PM FUNERAL CAR DRIVER 08/19/2022 2:21 PM FUNERAL CAR DRIVER us Lashanda Newell MECHANIC SENIOR LAB BLOOD ORDERABLES Final Resul t [facility] [address] [place] [address] documented in this encounter Visit Diagnoses Not on filedocumented in this encounter Care Teams Manager Willow Relationship Specialty Start Date End Date Sohan Rojas MD [address] [facility] [address] [place] [address] PCP - General Family Medicine 07/10/22 Lamin Mcgraw MD [address] [place] [address] Consulting Physician Urology 07/27/22 documented as of this encounter
--- OUTSIDE RECORDS SUMMARY | 2024-08-07 02:25 | XMS_ITS | Encounter Summary ---
Author Organization [facility] Address [address] [facility] [address] [place] [address] Care Team Providers Care Gamma Facilities Operator Name Role Phone Sohan Rojas MD Primary Care Provider [phone] Lamin Mcgraw MD Unavailable [phone] Manuel Chowdhury MD Unavailable Shahrzad SONI MD, Carlos M. Unavailable Reason for Visit * Reason Onset Date Comments Medical Question/Miscellaneous 01/26/2023 Encounter Details Date Type Department Care Team (Late st Contact Info) Description 01/26/2023 Telephone [facility] Primary Care at [address] [address] Sohan Rojas MD [address] [place] [address] [address] [place] [address] Medical Question/Miscellaneous Social History Tobacco [...] and Family Twice a week 05/31/2019 Attends Gnosticism Services Never 05/31 Active Member of Clubs [...] staff should administer the PHQ-9) 0 01/21/2023 [facility] Occupat ional Health [...] on file Legal 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 She states she hasn't heard back yet and was calling to check on things. Was hoping to be able to have patient get these donesoon. Please advise Caller???s Call back #: [phone] Does message need to be routed? Yes-Action Needed * Telephone Encounter - Cathleen Flores - 01/26/2023 4:27 PM CDT Medical Question/Miscellaneous Caller???s Concern: Patient's daughter is calling asking if labs that were ordered on 01.22.23 are able to be rerouted to [address] [place] [address] Caller???s Call back #: [phone] Does message need to be routed? Yes-Action Needed documented in this encounter Plan of Treatment Not on file documented as of this encounter Visit Diagnoses Not on filedocumented in this encounter Care Teams Gamma Facilities Operator Relationship Specialty Start Date End Date Sohan Rojas MD [address] [facility] [address] [place] [address] PCP - General Family Medicine 07/10/22 Lamin Mcgraw MD [address] [place] [address] Consulting Physician Urology 07/27/22 Manuel Chowdhury MD [address] [place] [address] Consulting Physician Neurology 01/21/23 [place] [address] [address] Consulting Physician Neurology 01/21/23 documented as of this encounter
--- OUTSIDE RECORDS SUMMARY | 2024-08-07 02:25 | XMS_ITS | Encounter Summary ---
Author Organization [facility] Address [address] [place] [address] Care Team Providers Care Timber Selector Name Role Phone Sohan oRjas MD Primary Care Provider [phone] Lamin Mcgraw MD Unavailable [phone] Manuel Chowdhury MD Unavailable Shahrzad SONI MD, Carlos M. Unavailable [phone] Reason for Referral * Diagnostic Imaging (Routine) - Closed Specialty Diagnoses / Procedures Referred By Daxa t Referred To Contact Diagnoses MCI (mild cognitive impairment) Procedures [place] [address] [facility] [address] [address] Phone: tel: fax: [facility] [id number] [place] [phone] Referral ID Status Reason Start Date Expiration Date Visits Re quested Visits Authorized [id number] Closed 02/08/2023 03/09/2024 1 1 Reason for Visit * Reason Comments Insomnia Encounter Details Date Type Department Care Team (Late st Contact Info) Description 02/08/2023 2:45 PM CDT Office Visit [facility] 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 Gender Identity Male 03/24/2021 7:53 PM CDT Sexual Orientation Straight 03/24/2021 7: 53 PM CDT Occupation Industry Job Start Date Job End Date retired Not on file Not on file Not on file documented as of this encounter Last Filed Vital Signs Vital Sign Reading Time Taken Comments Blood Pressure 102/64 02/08/2023 2:34 PM CDT Pulse 63 02/08/2023 2:34 PM CDT Temperature - - Respiratory Rate 17 02/08/2023 2:34 PM CDT Oxygen Saturation 98% 02/08/2023 2:34 PM CDT Inhaled Oxygen Concentration - - Weight 72 kg (158 lb 9.9 oz) 02/08/2023 2:34 PM CDT Height 177.8 cm (5' 10 ) 02/08/2023 2:34 PM CDT Body Mass Index 22.76 02/08/2023 2:34 PM CDT documented in this encounter Progress Notes * Sea Markham II, MD - 02/08/2023 2:45 PM CDT Subjective: Patient ID: Gulshan Johnston is a 82 y.o. male with memory loss. HPI The patient is seen today for re-evaluation and follow-up. The patient completed an MRI of the brain that showed atrophy microvascular disease. I personally independently reviewed the MRI of the brain and showed the films and discussed the results with the patient and the daughter. His thyroid function is within normal limits. His B12 and folate were also within normal limits. He continues to have short-term memory loss. He is being evaluated by the sleep medicine service as well. Review of Systems Constitutional: Negative for activity change, appetite change and fever. HENT: Negative for hearing loss, sore throat and tinnitus. Eyes: Negative for visual disturbance. Respiratory: Negative for cough and shortness of breath. Cardiovascular: Negative for chest pain and palpitations. Gastrointestinal: Negative for abdominal pain, constipation, diarrhea and nausea. Musculoskeletal: Negative for arthralgias and back pain. Neurological: Negative for dizziness, seizures, syncope, facial asymmetry, speech difficulty, weakness, light-headedness, numbness and headaches. Psychiatric/Behavioral: Negative for agitation, behavioral problems, confusion, decreased concentration, dysphoric mood and hallucinations. The patient is not nervous/anxious and is not hyperactive. Objective: Neurological Exam Mental Status Awake and alert. Oriented only to person and place. Recalls 3 of 3 objects immediately. At 3 minutes recalls 1 of 3 objects. Recalls 1 of 3 objects with prompting. Speech is normal. Language is fluent with no aphasia. Able to spell words backwards. Did not know day and date. Cranial Nerves CN II: Visual chapa full [...] Tongue midline without atrophy or fasciculations. Motor Strength is 5/5 throughout all four extremities. Sensory Sensation is intact to light touch, pinprick, vibration and proprioception in all four extremities. Reflexes Deep tendon reflexes are 2+ and symmetric in all four extremities. Coordination [id number]-[id number], rapid alternating movements and [id number]-[id number] normal bilaterally without dysmetria. Gait Casual gait is normal including stance, stride, and arm swing. Physical Exam Vitals reviewed. Exam conducted with a ship's surveyor present. Constitutional: General: He is awake. Appearance: Normal appearance. He is well-developed. HENT: Head: Normocephalic and atraumatic. Eyes: General: Lids are normal. Extraocular Movements: Extraocular movements intact. Conjunctiva/sclera: Conjunctivae normal. Pupils: Pupils are equal, round, and reactive to light. Cardiovascular: Rate and Rhythm: Normal rate and regular rhythm. Heart sounds: Normal heart sounds. Pulmonary: Effort: Pulmonary effort is normal. Abdominal: Palpations: Abdomen is soft. Musculoskeletal: General: Normal range of motion. Cervical back: Normal range of motion. Right lower leg: No edema. Left lower leg: No edema. Skin: General: Skin is warm. Neurological: Mental Status: He is alert. Motor: Motor strength is normal. Coordination: Coordination is intact. Deep Tendon Reflexes: Reflexes are normal and symmetric. Psychiatric: Speech: Speech normal. Assessment/Plan: 1. Mild cognitive impairment versus early dementia of the Alzheimer's type. I discussed the potential to use Lecanumab for treatment of his mild cognitive impairment. I discussed with him that in patients with dementia of the Alzheimer's type amyloid this is positive in the brain a patient with a co ndition and the new treatment decrease the amount of amyloid deposits in the brain and can delay progression of dementia of the Alzheimer's type. I informed that it was an intravenous medications have to be given periodically his MRI would have to be monitored periodic asleep as well because of thepotential complications of cerebral edema and hemorrhage. I also informed her that we would have todo a lumbar puncture to check a ratio of amyloid to tau protein if this shows a low amyloid level and spinal fluid and would meet criteria and he could be referred for treatment. He is in agreement and I will schedule him for CSF examination under x-ray guidance and sent the CSF profile for Alzheimer's disease. CBC will be requested. I will be in touch with him with the results of these tests once available he has a scheduled follow-up in 6 months. Medications Current Outpatient Medications: albuterol HFA (PROVENTIL HFA,VENTOLIN HFA,PROAIR HFA) 90 mcg/actuation inhaler, Inhale 2 puffs every 4 (four) hours as needed for wheezing, Disp: 1 each, Rfl: 3 cholecalciferol, vitamin D3, 1,000 unit tablet,chewable, , [...] mouth nightly, Disp: 90 tablet, Rfl: 1 fluticasone furoate-vilanteroL (Breo Ellipta) 100-25 mcg/dose diskus inhaler, INHALE 1 PUFF BY MOUTH ONCE DAILY, Disp: 180 each, Rfl: 0 fluticasone propionate (FLONASE) 50 mcg/actuation nasal spray, Administer 2 sprays into each nostril daily, Disp: 3 each, Rfl: 4 lecithin 1,200 mg capsule, Take 1 capsule by mouth 2 (two) times a day, Disp: , Rfl: mometasone 50 mcg/actuation HFA aerosol inhaler, Inhale, Disp: , Rfl: omega 3-fta-nmn-fish oil 360-1,200 mg capsule,delayed release(DR/EC), Take 1 capsule by mouth daily, Disp: , Rfl: omeprazole (PriLOSEC) 20 mg capsule, Take 1 capsule (20 mg total) by mouth daily, Disp: 90 capsule,Rfl: 1 peg 400-propylene glycol (SYSTANE) 0.4-0.3 % ophthalmic solution, Administer 1 drop into both eyes as needed, Disp: , Rfl: vitamin b complex (Vitamins [...] Arthritis 05/02/2018 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[facility]) 07/27/2022 Encounter for Medicare annual wellness exam 07/28/2022 Spinal stenosis of lumbar region with neurogenic claudication 08/19/2022 Radiculopathy, lumbosacral region 08/19/2022 Balance problem 09/15/2022 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 behavioral disturbance, psychotic disturbance, mood disturbance, or anxiety ([facility]) 10/26/2022 Resolved Ambulatory Problems Diagnosis Date Noted Gastro-esophageal reflux disease without esophagitis 12/17/2015 Elevated blood pressure reading 12/08/2018 Past Medical History: Diagnosis Date Anxiety Cancer ([facility]/HCC) ([facility]) 2017? GERD (gastroesophageal reflux disease) Heart disease [...] Frequency of Binge Drinking: Not on file documented in this encounter Plan of Treatment Not on file documented as of this encounter Results * Glucose, CSF (03/12/2023 12:30 PM CDT) Glucose, CSF 59 mg/dL ADDIE ORDONEZ Comment: Reference Interval Information: CSF Glucose should [...] O RDERABLES Final Result Performing Organization Address [facility] de Phone Number [employer] [address] [place] [employer] [place] [address] * (ABNORMAL) Cell count with reflex to differential, CSF (03/12/2023 12:30 PM CDT) Tube Number, CSF Tube 3 [facility] Color, CSF Colorless [facility] Clarity, CSF Clear [facility] Nucleated cells, CSF <3 0 - 5 /cumm [facility] RBC, CSF <2,000(H) 0 - 0 /cumm [facility] CSF 03/12/2023 12:3 0 PM CDT 03/12/2023 1:23 PM CDT Sea Markham II, MD LAB BODY FLUIDS AND STOOLS O RDERABLES Final Result Performing Organization Address [facility] de Phone Number [employer] [address] [place] [address] * (ABNORMAL) Protein, total, CSF (03/12/2023 12:30 PM CDT) Protein, CSF 76(H) 5 - 45 mg/dL [facility] CSF 03/12/2023 12:3 0 PM CDT 03/12/2023 1:23 PM CDT Sea Markham II, MD LAB BODY FLUIDS AND STOOLS O RDERABLES Final Result Performing Organization Address [facility] [place] [address] [address] [place] [address] * FL Fluoro Guided Lumbar Puncture (03/12/2023 [...] Anil Villalta M.D. Sea Markham II, MD [facility] FLUOROSCOPY PROCEDURES F inal Result * (ABNORMAL) Alzheimer???s disease evaluation, CSF (03/12/2023 11:00 AM CDT) p-Tau/Abeta42 0.027 <=0.028 [facility] Abeta42 665(L) >834 pg/mL [facility] Comment: ADDITIONAL INFORMATION The testing method is an electrochemiluminescence assay manufactured by [employer] Effective December 16, 2022, a formulation [...] be used interchangeably. Total-TAU 191 <=238 pg/mL [facility] Comment: ADDITIONAL INFORMATION The testing method is an electrochemiluminescence assay manufactured by [employer] Values obtained with different assay methods or kits may be different and cannot be used interchangeably. This test was developed and its performance characteristics determined by [facility] in a manner consistent with CLIA requirements. This test has not been cleared or approved by the U.S. Food and Drug Administration. Phospho-Tau(181P) 17.7 <=21.6 pg/mL [facility] Comment: ADDITIONAL INFORMATION The testing method is an electrochemiluminescence assay manufactured by [employer] Effective December 16, 2022, a formulation change was implemented in the [employer] p-Xfk342 reagent (Generation I to Generation II). Internal studies indicate a slight reduction in measured p-Rrs772 concentrations under specified assay collection conditions when using the new reagent formulation. Accordingly, the reference value has been modified from < or = 21.7 pg/mL (Gen I) to < or = 21.6 (Gen II). Values obtained with different assay methods or kits may be different and cannot be used interchangeably. Test Performed by: [facility] [address] [place] [address] Guest Relations Associate: Emiliano Sun M.D. Ph.D.; CLIA# [id number] CSF 03/12/2023 11:0 0 AM CDT 03/12/2023 2:58 PM CDT us Sea Markham II, MD LAB GENETIC TESTING Final Re sult Performing Organization Address City/State/[facility] Co de Phone Number ADDIE [phone] [facility] [place] [address] documented in this encounter Visit Diagnoses Diagnosis MCI (mild cognitive impairment)- Primary Mild cognitive impairment, so stated MCI (mild cognitive impairment) Mild cognitive impairment, so stated documented in this encounter Care Teams Timber Selector Relationship Specialty Start Date End Date Sohan Rojsa MD [address] [address] PCP - General Family Medicine 07/10/22 Lamin Mcgraw MD [address] [place] [address] Consulting Physician Urology 07/27/22 Manuel Chowdhury MD [address] [place] [address] Consulting Physician Neurology 01/21/23 [place] [address] [address] [place] [address] Consulting Physician Neurology 01/21/23 documented as of this encounter
--- OUTSIDE RECORDS SUMMARY | 2024-08-07 02:25 | XMS_ITS | Encounter Summary ---
Author Organization [facility] Address [address] [place] [address] Care Team Providers Care Chair Mender Name Role Phone Sohan Rojas MD Primary Care Provider [phone] Lamin Mcgraw MD Unavailable [phone] Reason for Visit * Reason Onset Date Comments Medical Question/Miscellaneous 08/19/2022 Encounter Details Date Type Department Care Team (Late st Contact Info) Description 08/19/2022 Telephone [facility] Primary Care at [address] [address] Sohan Rojas MD [address] [place] [address] [address] [place] [address] Medical Question/Miscellaneous Social History Tobacco [...] and Family Twice a week 05/31/2019 Attends Congregation Services Never 05/31 Active Member of Clubs [...] staff should administer the PHQ-9) 0 08/18/2022 [facility] [...] on file Legal 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 She states Lashanda didn't say the patient needed to be fasting for the labs and wanted to be sure that was correct. Advised he could do a non-fasting lab. Understood. Caller???s Call back #: [phone] Does message need to be routed?No STITCHER documented in this encounter Plan of Treatment Not on file documented as of this encounter Visit Diagnoses Not on filedocumented in this encounter Care Teams Chair Mender Relationship Specialty Start Date End Date Sohan Rojas MD [address] [facility] [address] [place] [address] PCP - General Family Medicine 07/10/22 Lamin Mcgraw MD [address] [place] [address] Consulting Physician Urology 07/27/22 documented as of this encounter
--- OUTSIDE RECORDS SUMMARY | 2024-08-07 02:25 | XMS_ITS | Encounter Summary ---
Author Organization [facility] Address [address] [place] [address] Care Team Providers Care Employment Trainer Name Role Phone Sohan Rojas MD Primary Care Provider [phone] Lamin Mcgraw MD Unavailable [phone] Reason for Visit * Diagnostic Imaging (Routine) - Closed Specialty Diagnoses / Procedures Referred By Contac t Referred To Contact Diagnoses Chronic bilateral low back pain with bilateral sciatica Procedures Imaging Lumbar/Caudal Epidural Steroid INJ (57279) [place] [address] [facility] [address] [place] [address] Phone: tel: fax: [facility] [address] [place] [address] Phone: tel: fax: Referral ID Status Reason Start Date Expiration Date Visits Re quested Visits Authorized [id number] Closed 08/19/2022 09/18/2023 1 1 Encounter Details Date Type Department Care Team (Latest Contact Info) Description 08/19/2022 4:20 PM ULTRASONIC SOLDERER Ancillary Procedure [facility] [address] [address] Chronic bilateral low back pain with bilateral sciatica Social History Tobacco Use Types Packs/Day Years [...] and Family Twice a week 05/31/2019 Attends Mosque Services Never 05/31 Active Member of Clubs [...] staff should administer the PHQ-9) 0 08/18/2022 [facility] - Occupational [...] on file Legal Sex Male 8:20 PM ULTRASONIC SOLDERER Gender Identity Male 03/24/2021 7:53 PM CDT Sexual Orientation Straight 03/24/2021 7: 53 PM CDT Occupation Industry Job Start Date Job End Date retired Not on file Not on file Not on file documented as of this encounter Plan of Treatment Not on file documented as of this encounter Procedures Procedure Name Priority Date/Time Associated Diagnosis Comments PAIN MGMT IMAGING LUMBAR/CAUDAL EPIDURAL STEROID INJ Schedule Routine, Read Routine (OP Routine) 08/19/2022 4:34 PM ULTRASONIC SOLDERER Chronic bilateral low back pain with bilateral sciatica documented in this encounter Results * Imaging Lumbar/Caudal Epidural Steroid INJ (65263) (08/19/2022 4:34 PM ULTRASONIC SOLDERER) Narrative RAD_PACS_ - 08/19/2022 4:34 PM ULTRASONIC SOLDERER The images from this study are not interpreted by Radiology. ??Please refer to the physician's procedure / OR operative note. Stas So MD IMG PAIN MGMT PROCEDU RES Final Result Performing Organization Address City/State/[facility] Co de Phone Number [facility] documented in this encounter Visit Diagnoses Diagnosis Chronic bilateral low back pain with bilateral sciatica documented in this encounter Care Teams Employment Trainer Relationship Specialty Start Date End Date Sohan Rojas MD [address] [facility] [address] [place] [address] PCP - General Family Medicine 07/10/22 Lamin Mcgraw MD [address] [place] [address] Consulting Physician Urology 07/27/22 documented as of this encounter
--- OUTSIDE RECORDS SUMMARY | 2024-08-07 02:26 | XMS_ITS | Encounter Summary ---
Author Organization [facility] Address [address] [place] [address] Care Team Providers Care Senior Financial Analyst Name Role Phone Lamin Ricci MD Primary Care Provider [phone] Reason for Visit * Reason Comments Earache Encounter Details Date Type Department Care Team ([facility] st Contact Info) Description 05/14/2021 10:00 AM CDT Office Visit [facility] Family Medicine [address] [place] [address] Lamin Ricci MD [address] [place] [address] [address] [place] [address] Dysfunction of both eustachian tubes (Primary Dx); Gastroesophageal reflux disease with esophagitis without hemorrhage; Mild intermittent asthma, unspecified whether complicated; Degenerative lumbar spinal stenosis; Benign prostatic hyperplasia without lower urinary tract symptoms; Drug-induced constipation Social History Tobacco Use Types Packs/Day Years [...] and Family Twice a week 05/31/2019 Attends [employer] Never 05/31 Active Member of [employer] [...] points, staff should administer the PHQ-9) 0 05/14/2021 [facility] [...] on file 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 Gender Identity Male 03/24/2021 7:53 PM CDT Sexual Orientation Straight 03/24/2021 7: 53 PM CDT Occupation Industry Job Start Date Job End Date retired Not on file Not on file Not on file documented as of this encounter Last Filed Vital Signs Vital Sign Reading Time Taken Comments Blood Pressure 110/80 05/14/2021 11:01 AM CDT Pulse 70 05/14/2021 11:01 AM CDT Temperature 36.7 ??C (98 ??F) 05/14/2021 11:01 AM CDT Respiratory Rate 18 05/14/2021 11:01 AM CDT Oxygen Saturation - - Inhaled Oxygen Concentration - - Weight 75.8 kg (167 lb) 05/14/2021 11:01 AM CDT Height 177.8 cm (5' 10 ) 05/14/2021 11:01 AM CDT Body Mass Index 23.96 05/14/2021 11:01 AM CDT documented in this encounter Ordered Prescriptions Prescription Sig Dispense Quantity Refills Last Filled Start Date End Date mometasone (NASONEX) 50 mcg/actuation nasal sprayIndications:D ysfunction of both eustachian tubes Administer 2 sprays into each nostril 2 (two) times a day 17 g 5 05/14/2021 2 documented in this encounter Progress Notes * Lamin Ricci MD - 05/14/2021 10:00 AM CDT Images from the original note were not included. Subjective/Objective Patient ID: Gulshan Johnston is a 81 y.o. male. Visit Date: 05/14/2021 Chief Complaint Earache HPI Returns to the office for repeat evaluation. States that he has been having decreased hearing and ear pain hte copd is under control and the bph is under control The lipids are under control and continues to have the lumbar back pain The gerd is under control. Review of Systems Constitutional: Negative for appetite change and fever. HENT: Positive for hearing loss. Negative for rhinorrhea and trouble swallowing. Eyes: Negative for pain and visual disturbance. Respiratory: Negative for cough, chest tightness and shortness of breath. Cardiovascular: Negative for chest pain and leg swelling. Gastrointestinal: Negative for abdominal pain, blood in stool, diarrhea, nausea and vomiting. Endocrine: Negative for cold intolerance and heat intolerance. Genitourinary: Negative for difficulty urinating, dysuria and frequency. Musculoskeletal: Negative for arthralgias, back pain and myalgias. Skin: Negative for color change and rash. Allergic/Immunologic: Negative for food allergies. Neurological: Negative for dizziness, syncope, weakness, light-headedness and headaches. Hematological: Does not bruise/bleed easily. Psychiatric/Behavioral: Negative for confusion, hallucinations and suicidal ideas. The patient is not nervous/anxious. Physical Exam Vitals reviewed. Constitutional: General: He is not in acute distress. Appearance: He is well-developed. HENT: Head: Normocephalic. Comments: Fluid behind each tm's Right Ear: External ear normal. Left Ear: External ear normal. Eyes: Conjunctiva/sclera: Conjunctivae normal. Pupils: Pupils are equal, round, and reactive to light. Neck: Thyroid: No thyromegaly. Comments: ROM appropriate Cardiovascular: Rate and Rhythm: Normal rate and regular rhythm. Heart sounds: Normal heart sounds. No murmur heard. No friction rub. No gallop. Pulmonary: Effort: Pulmonary effort is normal. Breath sounds: Normal breath sounds. Abdominal: General: Bowel sounds are normal. There is no distension. Palpations: Abdomen is soft. Tenderness: There is no abdominal tenderness. Musculoskeletal: Cervical back: Neck supple. Comments: ROM appropriate Skin: General: Skin is warm and dry. Capillary Refill: Capillary refill takes less than 2 seconds. Neurological: Mental Status: He is alert and oriented to person, place, and time. Psychiatric: Behavior: Behavior normal. Assessment/Plan Diagnoses and all orders for this visit: Dysfunction of both eustachian tubes (H69.83) (Primary) Comments: conditon acute. nasonex Gastroesophageal reflux disease with esophagitis without hemorrhage (K21.00) Comments: conditon chroinc and at goal continue hte prilosec. Mild intermittent asthma, unspecified whether complicated (J45.20) Comments: conditon chroinc and at goal continue the inhalers. Degenerative lumbar spinal stenosis (M48.061) Comments: conditon chronic adn at goal with chronic pain continue the pain meds. Benign prostatic hyperplasia without lower urinary tract symptoms (N40.0) Comments: conditon chroinc and at goal ocntinue hte flomax. Drug-induced constipation (K59.03) Comments: condition chroinc and not at goal refer to dr. rick Ricci MD documented in this encounter Plan of Treatment Not on file documented as of this encounter Visit Diagnoses Diagnosis Dysfunction of both eustachian tubes- Primary Gastroesophageal reflux disease with esophagitis without hemorrhage Mild intermittent asthma, unspecified whether complicated Degenerative lumbar spinal stenosis Spinal stenosis of lumbar region Benign prostatic hyperplasia without lower urinary tract symptoms Drug-induced constipation Other constipation documented in this encounter Care Teams Senior Financial Analyst Relationship Specialty Start Date End Date Lamin Ricci MD PCP - General Family Medicine 10/07/18 07/09/22 documented as of this encounter
--- OUTSIDE RECORDS SUMMARY | 2024-08-07 02:26 | XMS_ITS | Encounter Summary ---
Author Organization [facility] Healthcare Address [address] [place] [address] Care Team Providers Care Command Center Analyst Name Role Phone Sohan Rojas MD Primary Care Provider [phone] Lamin Mcgraw MD Unavailable [phone] Reason for Referral * MRI/CAT/PET Scan (Routine) - Closed Specialty Diagnoses / Procedures Referred By Contac t Referred To Contact Radiology Diagnoses Chronic bilateral low back pain with bilateral sciatica Procedures [place] [address] [facility] [address] [place] [address] Phone: tel: fax: [address] [phone] Referral ID Status Reason Start Date Expiration Date Visits Re quested Visits Authorized [id number] Closed 08/31/2022 09/30/2022 1 1 ON MAKING MACHINIST * Diagnostic Imaging (Routine) - Closed Specialty Diagnoses / Procedures Referred By Contac t Referred To Contact Diagnoses Chronic bilateral low back pain with bilateral sciatica Procedures Imaging Lumbar/Caudal Epidural Steroid INJ ([id number]) [place] [address] [facility] [address] [place] [address] Phone: tel: fax: [facility] [address] [place] [id number] Phone: tel: fax: Referral ID Status Reason Start Date Expiration Date Visits Re quested Visits Authorized [id number] Closed 08/19/2022 09/18/2023 1 1 ON MAKING MACHINIST * Consultation (Routine) - Closed Specialty Diagnoses / Procedures Referred By Contac t Referred To Contact Pain Management Diagnoses Degenerative lumbar spinal stenosis Chronic bilateral low back pain with bilateral sciatica Sohan Rojas MD [facility] [address] [place] [address] Phone: tel: [place]: [place] [address] [place] [address] Phone: tel: fax: Referral ID Status Reason Start Date Expiration Date V isits Requested Visits Authorized [id number] Closed Specialty Services Required 07/27/2022 08/26/2023 4 4 Question Answer Please select the performing region: [facility] [[id number]] Please select the performing department: PAIN MGMT CLIN [[id number]] To provider: STAS SO [[id number]] # of visits: 4 ON MAKING MACHINIST Reason for Visit * Reason Comments Initial Consult * Consultation (Routine) - Closed Specialty Diagnoses / Procedures Referred By Contac t Referred To Contact Pain Management Diagnoses Degenerative lumbar spinal stenosis Chronic bilateral low back pain with bilateral sciatica Sohan Rojas MD [address] [address] Phone: tel: [place]: [place] [address] [place] [address] Phone: tel: fax: Referral ID Status Reason Start Date Expiration Date V isits Requested Visits Authorized [id number] Closed Specialty Services Required 07/27/2022 08/26/2023 4 4 Encounter Details Date Type Department Care Team (Late st Contact Info) Description 08/19/2022 3:11 PM CARTON MAKING MACHINIST - 08/19/2022 11:59 PM CARTON MAKING MACHINIST Hospital Encounter [facility] [address] [place] [address] [place] [address] [facility] [address] [place] [address] Spinal stenosis of lumbar region with neurogenic claudication (Primary Dx); Degenerative lumbar spinal stenosis; Chronic bilateral low back pain with bilateral sciatica; Radiculopathy, lumbosacral region Discharge Disposition: Discharge to home or self [...] staff should administer the PHQ-9) 0 08/18/2022 [facility] - [...] on file Legal Sex Male 8:20 PM CARTON MAKING MACHINIST Gender Identity Male 03/24/2021 7:53 PM CDT Sexual Orientation Straight 03/24/2021 7: 53 PM CDT Occupation Industry Job Start Date Job End Date retired Not on file Not on file Not on file documented as of this encounter Last Filed Vital Signs Vital Sign Reading Time Taken Comments Blood Pressure 147/80 08/19/2022 4:40 PM CARTON MAKING MACHINIST Pulse 71 08/19/2022 4:35 PM CARTON MAKING MACHINIST Temperature - - Respiratory Rate 16 08/19/2022 4:35 PM CARTON MAKING MACHINIST Oxygen Saturation 100% 08/19/2022 4:35 PM CARTON MAKING MACHINIST Inhaled Oxygen Concentration - - Weight - - Height - - Body Mass Index - - documented in this encounter Discharge Instructions * Discharge Instructions* Daysi Barfield RN - 08/19/2022 4:48 PM CARTON MAKING MACHINIST You may notice a slight increase in pain after the procedure. This should start to improve within the next 24-48 hours. It may take as long as 72 hours before you notice a gradual improvement in your pain/symptoms. If you are taking pain medications you may continue to take them. You may restart your medications the day after the procedure. If you are going to physical therapy continue to do so. If you experience pain at the injection site, you may apply ice to the affected area for area for 20 minutes every 2 hours. No heat to the injection site for 24 hours. No tub bath or soaking in water(pools/jacuzzi, etc.) for 24 hours. If you develop ANY other symptoms, such as severe pain, headache, visual changes, new numbness or weakness any where on your body, loss of control of your bowels or bladder, or have signs of infection (temperature of 100.4 or greater, drainage at the injection site) Call the Pain Management Center i mmediately at [phone]. After hours, contact the [facility] Communication Coordinator at [phone] and she will reach your physician for you. In case of emergency call 911 ON MAKING MACHINIST documented in this encounter Medications at Time [...] mcg/actuation HFA aerosol inhaler Inhale 4 omega 6-sfj-dat-fish oil 360-1,200 mg capsule,delayed release(DR/EC) Take 1 [...] documented in this encounter Progress Notes * Stas So MD - 08/19/2022 3:30 PM CST Patient Name: Gulshan Johnston : 1940 Today's Date: 08/19/2022 PCP: Sohan Rojas MD Referring: Sohan Rojas MD Chief Complaint Patient presents with Initial Consult HPI: Gulshan is here for initial consult, referred by Dr. Rojas. He reports frequent low back pain, with a radicular component that extends down his posterior left leg. He describes the pain as aching, andrates it 3/10 today. Aggravating factors include standing and walking. Alleviating factors include sitting, lying down, and forward lumbar flexion. Gulshan's pain began gradually ~15 years ago. He is s/p L3-L4 microdiscectomy ~2011 (Dr. Cruz), with moderate relief for several years. However, his pain has since worsened again. He denies relief with PT or manager primary care. Going forward, he is interested in L4/5 LOBITO, and in obtaining a new lumbar MRI for review. Previous treatments: L3-L4 microdiscectomy, back injections, PT, manager primary care Prior medications utilized: Tylenol, Diclofenac, Oxycodone Allergies Allergen Reactions Other Sneezing Seasonal allergies Past Medical History: Diagnosis Date Anxiety Arthritis Asthma GERD (gastroesophageal reflux disease) Heart disease Hyperlipidemia Insomnia Osteoporosis Personal history of other diseases of the respiratory system Personal history of asthma - (Added by TW Conv) Rheumatic fever Sleep apnea Diagnosed years ago - not sure if it's still pertinent Sleep difficulties Patient Active Problem List Diagnosis Hypercholesterolemia Osteoarthritis Rosacea Bronchial asthma Gastroesophageal reflux disease Diffuse cervicobrachial syndrome Lumbago Degenerative lumbar spinal stenosis Chronic pain Cervical radiculopathy Anemia Insomnia, unspecified Intrinsic eczema Prostate cancer ([facility] ([facility]) Pure hypercholesterolemia Lumbar back pain Primary osteoarthritis of left shoulder Dyspnea, unspecified Acute sinusitis Callus of toe Onychomycosis of toenail Pain in toe Paronychia of toe of right foot Sleep disorder Asthma Arthritis 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[facility]) ([facility]) Encounter for medical examination to establish care Spinal stenosis of lumbar region with neurogenic claudication Radiculopathy, lumbosacral region Past Surgical History: Procedure Laterality Date FOOT SURGERY Foot Surgery - (Added by TW Conv) LUMBAR DISC SURGERY Spinal Diskectomy Lumbar - (Added by TW Conv) ME TONSILLECTOMY PRIMARY/SECONDARY <AGE 12 Tonsillectomy - (Added [...] furoate-vilanteroL (Breo Ellipta) 100-25 mcg/dose diskus inhaler lecithin 1,200 mg capsule memantine (Namenda) 5 mg tablet mometasone 50 mcg/actuation HFA aerosol inhaler omega 2-nqs-znv-fish oil 360-1,200 mg capsule,delayed release(DR/EC) omeprazole (PriLOSEC) 20 mg capsule oxyCODONE-acetaminophen (PERCOCET) 5-325 mg per tablet peg 400-propylene glycol (SYSTANE) 0.4-0.3 % ophthalmic solution tamsulosin (FLOMAX) 0.4 mg extended release capsule vitamin b complex (Vitamins B Complex) tablet vitamin E (AQUASOL E) 1,000 unit capsule fluticasone propionate (FLONASE) 50 mcg/actuation nasal spray Review of Systems Review of systems completed, reviewed, and scanned into the chart. Physical Exam Vitals: 08/19/22 1536 BP: 153/79 Pulse: 69 Resp: 16 SpO2: 100% Estimated body mass index is 23.1 kg/m?? as calculated from the following: Height as of 08/18/22: 177.8 cm (5' 10 ). Weight as of 08/18/22: 73 kg (161 lb). No apparent distress Alert and oriented Normal respiratory effort Abdomen not distended There is pain with extension at lumbar spine and improvement with flexion. Pain is worse with standing and walking as compared to sitting. Antalgic gait. No gross neuro sensory change noted outside of patient feels heaviness and weakness when standing and with extension. Assessment Encounter Diagnoses Name Primary? Degenerative lumbar spinal stenosis Chronic bilateral low back pain with bilateral sciatica Spinal stenosis of lumbar region with neurogenic claudication Yes Radiculopathy, lumbosacral region Medical Decision Making / Plan: VAS reviewed with score of: 3/10 PEG Scale Assessing Pain Intensity and Interference reviewed with score of: 4/10 Oswestry Low Back Disability Questionnaire reviewed with score of: 22/50 Current Opioid Misuse Measure (COMM) reviewed with score of : 4 (> or equal to 9 is higher risk of opioid misuse) [place] and [place] Prescription Drug Monitoring Reviewed and found appropriate. Plan: Gulshan is here today with pain in the setting of spinal stenosis with neurogenic claudication. I personally reviewed results of an MRI from 2015 which showed severe stenosis at L3-4, L4-5, and L5-S1.This combination of disc bulge, facet arthropathy and ligamentum flavum hypertrophy. He was previously treated then with microdiskectomy at L3-4. He was previously treated by another pain management provider we reviewed his notes detail in epidural steroid injections. The patient is a bit of a poorhistorian at this point though it seems that likely had relatively good relief from injection therapy for a bit and then ultimately needed surgical intervention. He now struggles with things such as w alking around the grocery store and the home being able to stand long enough to cook meals. I thinkhe likely would benefit from mild procedure. We will plan for lumbar epidural steroid injection today. If there is not sufficient improvement from this we would then plan for likely mild procedure though we will obtain a new MRI of the lumbar spine to help guide further treatment planning. He may be nefit from interspinous spacer if mild would fail as well. Therefore for now we will plan to see Gulshan parks in a few weeks for follow-up visit with review of MRI and further treatment planning. Documentation of Medical Necessity of Epidural Steroid Injection due to suspected spinal stenosis: History, examination, and imaging studies suggest a radiculopathy due to disc herniation, osteophyte, and/or severe degenerative disc disease contributing to spinal stenosis Imaging results - MRI Lumbar Spine WO Contrast (03/26/16) - FINDINGS: For purposes of this dictation, the lowest developed disc space is considered to be L5-S1. Alignment and curvature is normal. There is no compression fracture. There is severe spondylosis with desiccation, loss of disc and osteophyte formation. Several endplate Schmorl's node deformities are present as well. No concerning marrow replacement. The conus terminates at L1 and is unremarkable. No cord tethering lesions are identified. At the T12-L1 level there is an annular bulge but there is no spinal canal or foraminal stenosis. At the L1-2 level there is an annular bulge but without spinal canal or foraminal stenosis. At the L2-3 level there is an annular bulge and facet hypertrophy but without spinal canal or foraminal stenosis. At the L3-4 level there is an annular bulge with facet arthropathy and thickening of ligamentum flavum. There is likely a concomitant right-sided synovial cyst emanating into the lateral aspect of the spinal canal as well. In total there is severe spinal canal stenosis with effacement of both lateral recesses. Severe bilateral foraminal stenosis with compression of the L3 nerve roots. Above the level of spinal canal stenosis, the cauda equina is redundant and tortuous. At the L4-5 level there is an annular bulge with facet arthropathy and thickening of ligamentum flavum. This results in moderate spinal canal stenosis. Moderate to severe right and moderate left foraminal narrowing. At the L5-S1 level there is an annular bulge and facet arthropathy resulting in moderate to severe bilateral foraminal stenosis. No spinal canal stenosis. Partially imaged is a exophytic T2 hyperintense lesion from the left kidney, most likely a cyst. If confirmation is desired, could follow up with dedicated renal ultrasound. Radicular pain is greatly affecting quality of life and/or function FLORIDALMA - 22/50 VAS - 3/10 Patient limitations - unable to sleep >6 hours, unable to stand >10 minutes, unable to walk >0.25 miles, pain with daily activities Pain has been present for at least 4 weeks. The patient has not tolerated or has failed to respond to conservative care for at least 4 weeks Conservative care attempted (duration and results) - has tried activity modification, rest, heat, ice, home exercise, PT, manager primary care, Tylenol, anti-inflammatories, opioids for >1 year - minimal relief The patient is prescribed PT or Home Exercise Program - Yes Goals of Treatment: Treat underlying pathology, improve pain control, improve function and quality of life. Use of Medications: The pain management contract has been previously reviewed. Questions solicited and answered, and the patient endorses a clear understanding. The patient understands random toxicology screening and prescription drug monitoring will be used. Instructed to take the smallest effective dose of opioid medication. Risks/side-effects of opioid medications, if utilizing, have been reviewed including: drowsiness, tolerance, addiction, abuse, constipation, nausea, vomiting, itching, dizziness, allergic reaction, respiratory depression, lack of benefit, endocrine abnormalities, low testosterone, sexual dysfunction, or . If utilizing, risks/side-effects of NSAID???s and potential for gastrointestinal bleeding, gastritis/esophagitis, and increased cardiac risk reviewed. Risks/side-effects of Gabapentin, Lyrica, and other potential sedative medications, if utilizing, have been reviewed including drowsiness, sedation, dizziness, fluid retention, weight gain, respiratory depression, and . If utilizing medications, the patient has been instructed to take every medication appropriately, storing and disposing properly, never sharing medication. The patient has been instructed on opioid medications, including but not limited to: do not combine with other medications such as benzodiazepines, alcohol, muscle relaxers, or other depressant medications. Patient instructed to avoid driving and operating heavy machinery. UDS screens will be performed to assess for medication, metabolites, other medications, and illicit substances. Results may be discussed at the next visit. Tobacco Screening: Gulshan Johnston was screened for tobacco use. Patient is not a tobacco user. Tobacco counseling not applicable. Pre-hypertension/Hypertension: The patient has been informed that [...] try weight loss and exercise for management. Coin Machine Supervisor: Coin Machine Supervisor done with [employer]: variances and inaccuracies may occur. Dictations not proofread. Problem list pertinent to today???s visit reviewed, but entire patient problem list not reviewed today. This note is prepared by Padmini Hancock, acting as a scribe for Stas So MD. I electronically signed this note at 4:37 PM on 08/19/22. I, Stas So MD, have personally performed the services described in the documentation,reviewed the documentation as recorded by the scribe in my presence, and it accurately and completely records my words and actions though there are potential variances in recording and inspector government property.Dictations not proofread. ON MAKING MACHINIST documented in this encounter Miscellaneous Notes * Op Note - Stas So MD - 08/19/2022 3:30 PM CST Procedure: Lumbar Epidural Steroid Injection Diagnosis: Lumbago, Lumbar Spinal Stenosis, Lumbar Radiculopathy Indication for procedure: Please see office note detailing need for epidural steroid injection Surgeon: Elvin So Anesthesia: Local Complications: None Informed Consent: Risks, benefits, complications, and alternatives to proceeding with the procedurewere discussed in detail with the patient. Questions were solicited and answered, and the patient endorsed explicit understanding and consent to proceed. The patient was informed risks included but are not limited to: serious infection, bleeding/bruising, allergic reaction, nerve or organ injury, paralysis, increased pain, worsening mobility, lack of pain relief, stroke, and . Description of Procedure: The patient was then allowed to place themselves in the prone position on the operating room table.The back was prepped with chlorhexidine and draped in the usual sterile fashion. Fluoroscopy was utilized to identify and number the lumbar vertebrae. The L5-S1 interspace was optimized via fluoroscopy and the overlying skin and subcutaneous tissue was anesthetized with 1% lidocaine. Next, a Tuohy needle was advanced under fluoroscopic guidance and utilizing loss of resistance technique with saline until the tip lie within the lumbar epidural space. After negative aspiration, 0.5 ml of Omnipaque contrast was injected, revealing an appropriate lumbar epidurogram. Additional fluoroscopic imaging from another angle showed appropriate spread as well. Again after negative aspiration, a solution consisting of 10mg of Decadron in quantity sufficient 7 ml PSF NS was injected. Aseptic technique was utilized throughout. Location/laterality were confirmed with the patient and staff during timeout. The patient tolerated the procedure well, and there were no apparent complications. There were no neurosensory changes. The patient was brought to the recovery area. Vital signs stable. Injection site clean, dry, and intact. Post procedure instructions were given to the patientand a follow up confirmed. 24-hour contact information provided. The patient was instructed to callin the event of severe pain, bleeding, neurological deficit, fever, or other significant concerns, and to call 911 if there is any concern for any emergency. The patient denies complaints and is discharged. ON MAKING MACHINIST * Addendum Note - Lexii Atkins RN - 08/19/2022 3:30 PM CSTEncounter addended by: Lexii Atkins RN on: 08/20/2022 7:04 AM Actions taken: Charge Capture section accepted ON MAKING MACHINIST documented in this encounter Plan of Treatment Scheduled Referrals Name Type Priority Associated Diagnoses Order Schedule Ambulatory referral to Pain Management Outpatient Referral Routine Degenerative lumbar spinal stenosis Chronic bilateral low back pain with bilateral sciatica Once for 1 Occurrences starting 08/19/2022 until 08/19/2022 documented as of this encounter Results * MRI Lumbar Spine WO Contrast (08/31/2022 6:02 PM CARTON MAKING MACHINIST) Anatomical Region Laterality Modality Spine N/A Magnetic Resonan ce 09/01/2022 8:19 AM CARTON MAKING MACHINIST Impressions 09/01/2022 8:19 AM CARTON MAKING MACHINIST Severe multilevel disease with spinal stenosis multiple levels maximal L4-L5. ??No definite disc herniation. ??Multiple foraminal stenoses. ??Scoliosis Electronically signed by: Alex Gill M.D. Narrative 09/01/2022 8:19 AM CARTON MAKING MACHINIST Examination: MRI LUMBAR SPINE WO CONTRAST ??08/31/2022 [...] Scoliosis Electronically signed by: Alex Gill M.D. Stas So MD [facility] MRI PROCEDURES Fi nal Result * Imaging Lumbar/Caudal Epidural Steroid INJ ([id number]) (08/19/2022 4:34 PM CARTON MAKING MACHINIST) Narrative RAD_PACS_ - 08/19/2022 4:34 PM CARTON MAKING MACHINIST The images from this study are not interpreted by Radiology. ??Please refer to the physician's procedure / OR operative note. 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 documented in this encounter Administered Medications Inactive Administered Medications - up to 3 most recent administrations Medication Order MAR Action Action Date Dose Rate Site dexAMETHasone (DECADRON) injection solution As needed, Starting on Wed08/19/22 at 1628, Intra-Op Given 08/19/2022 4:28 PM CARTON MAKING MACHINIST 10 mg iohexoL (OMNIPAQUE) 240 mg iodine/mL injection solution As needed, Starting on Wed08/19/22 at 1628, Intra-Op Given 08/19/2022 4:28 PM CARTON MAKING MACHINIST 1 mL Back sodium chloride 0.9% solution As needed, Starting on Wed08/19/22 at 1628, Intra-Op Given 08/19/2022 4:28 PM CARTON MAKING MACHINIST 5 mL documented in this encounter Care Teams Command Center Analyst Relationship Specialty Start Date End Date Sohan Rojas MD [address] [facility] [address] [place] [address] PCP - General Family Medicine 07/10/22 Lamin Mcgraw MD [address] [place] [address] Consulting Physician Urology 07/27/22 documented as of this encounter
--- OUTSIDE RECORDS SUMMARY | 2024-08-07 02:26 | XMS_ITS | Encounter Summary ---
Author Organization [facility] Address [address] [place] [address] Care Team Providers Care Associate Juvenile Court Judge Name Role Phone Lamin Ricci MD Primary Care Provider [phone] Reason for Visit * Reason Onset Date Comments Symptoms 12/30/2021 Encounter Details Date Type Department Care Team ([facility] st Contact Info) Description 12/30/2021 Telephone [facility] Family Medicine [address] [place] [address] Lamin Ricci MD [address] [place] [id number] Symptoms Social History Tobacco Use Types Packs/Day Years [...] and Family Twice a week 05/31/2019 Attends [employer] Services Never 05/31 Active Member of Clubs [...] points, staff should administer the PHQ-9) 0 06/19/2021 [facility]at ional [facility] [...] on file Legal Sex Male 8:20 PM TOOL LAPPER HAND Gender Identity Male 03/24/2021 7:53 PM CDT Sexual Orientation Straight 03/24/2021 7: 53 PM CDT Occupation Industry Job Start Date Job End Date retired Not on file Not on file Not on file documented as of this encounter Ordered Prescriptions Prescription Sig Dispense Quantity Refills Last Filled Start Date End Date azithromycin (ZITHROMAX) 250 mg tablet Take 2 tabs (500 mg) by mouth today, than 1 daily for 4 days. 6 tablet 12/30/2021 01/04/2022 documented in this encounter Miscellaneous Notes * Telephone Encounter - Jazzy Fink MA - 12/30/2021 3:11 PM CDT Spoke to pt He had a flare up of asthma, now has sinus kandi press drain, feels off balance from his sinus headache [facility] per josh sent * Telephone Encounter - Melissa Dalton - 12/30/2021 11:10 AM CDT When stands up from sitting he is off balance, congestion, drainage documented in this encounter Plan of Treatment Not on file documented as of this encounter Visit Diagnoses Not on filedocumented in this encounter Care Teams Associate Juvenile Court Judge Relationship Specialty Start Date End Date Lamin Ricci MD PCP - General Family Medicine 10/07/18 07/09/22 documented as of this encounter
--- OUTSIDE RECORDS SUMMARY | 2024-08-07 02:26 | XMS_ITS | Encounter Summary ---
Author Organization [facility] Address [address] [facility][note 3] [address] [place] [address] Care Team Providers Care Platform Attendant Name Role Phone Sohan Rojas MD Primary Care Provider [phone] Lamin Mcgraw MD Unavailable [phone] Reason for Referral * Consultation (Routine) - Closed Specialty Diagnoses / Procedures Referred By Contac t Referred To Contact Pain Management Diagnoses Degenerative lumbar spinal stenosis Chronic bilateral low back pain with bilateral sciatica Sohan Rojas MD [address] [facility] [address] [place] [address] Phone: tel: [place]: [place] [id number] [facility] [address] [place] [address] Phone: tel: fax: Referral ID Status Reason Start Date Expiration Date V isits Requested Visits Authorized [id number] Closed Specialty Services Required 07/27/2022 08/26/2023 4 4 Question Answer Please select the performing region: [facility] [[id number]] Please select the performing department: [facility] [[id number]] To provider: STAS SO [[id number]] # of visits: 4 GER TESTER Reason for Visit * Reason Comments New Patient New patient Encounter Details Date Type Department Care Team (Late st Contact Info) Description 07/27/2022 12:30 PM CHARGER TESTER Office Visit [facility] Primary Care at [address] [address] Sohan Rojas MD [address] [facility] [address] [place] [address] Encounter to establish care with new doctor (Primary Dx); Encounter for administration of vaccine; Degenerative lumbar spinal stenosis; Chronic bilateral low back pain with bilateral sciatica; Gastroesophageal reflux disease with esophagitis without hemorrhage; Hypercholesterolemia; History of prostate cancer; At maximum risk for fall; Mild intermittent asthma without complication; 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CMS/HCC) (HCC); Prostate cancer (CMS/HCC) ([facility]) Social History Tobacco Use Types Packs/Day Years [...] and Family Twice a week 05/31/2019 Attends [employer] Services Never 05/31 Active Member of Clubs [...] points, staff should administer the PHQ-9) 0 07/27/2022 [facility] of Occupat ional Health - Occupational Stress [...] on file Legal Sex Male 8:20 PM CHARGER TESTER Gender Identity Male 03/24/2021 7:53 PM CDT Sexual Orientation Straight 03/24/2021 7: 53 PM CDT Occupation Industry Job Start Date Job End Date retired Not on file Not on file Not on file documented as of this encounter Last Filed Vital Signs Vital Sign Reading Time Taken Comments Blood Pressure 110/70 07/27/2022 12:38 PM CHARGER TESTER Pulse 73 07/27/2022 12:38 PM CHARGER TESTER Temperature 35.9 ??C (96.7 ??F) 07/27/2022 12:[address] Respiratory Rate 16 07/27/2022 12:38 PM CHARGER TESTER Oxygen Saturation 97% 07/27/2022 12:38 PM CHARGER TESTER Inhaled Oxygen Concentration - - Weight 72.6 kg (160 lb) 07/27/2022 12:38 PM CHARGER TESTER Height 177.8 cm (5' 10 ) 07/27/2022 12:38 PM CHARGER TESTER Body Mass Index 22.96 07/27/2022 12:38 PM CHARGER TESTER documented in this encounter Patient Instructions * Patient Instructions* Sohan Rojas MD - 07/27/2022 12:30 PM CHARGER TESTER Will plan to do SLUMS in a couple weeks Referrals to pain management and PT ordered Continuing current regimen otherwise, but we will add Breo to help control asthma Refilled albuterol Awaiting labs Thanks for coming in today! My medical assistants and I are thankful you have trusted us with your care, and hope that you received EXCELLENT care today! Please do not hesitate to call if you have any questions or concerns at [phone]. You may receive a phone call, text, MYCHART message, or e-mail asking about your care today. We would love to hear your feedback on how EXCELLENT your care wastoday! Wishing you better health, always. Dr. Rojas GER TESTER documented in this encounter Ordered Prescriptions Prescription Sig Dispense Quantity Refills Last Filled Start Date End Date albuterol HFA (PROVENTIL HFA,VENTOLIN HFA,PROAIR HFA) 90 mcg/actuation inhalerIndications :Bronchospasm Prevention Inhale 2 puffs every 4 (four) hours as needed for wheezing 1 each 3 07/27/2022 4 fluticasone furoate-vilanteroL (Breo Ellipta) 100-25 mcg/dose diskus inhalerIndications :Maintenance Therapy for Asthma Inhale 1 puff daily 3 each 1 07/27/2022 3 documented in this encounter Progress Notes * Sohan Rojas MD - 07/27/2022 12:30 PM CST Images from the original note were not included. SUBJECTIVE: Gulshan Johnston is a 82 y.o. male presenting today to establish care. I can't seem to hold a bowel movement . He notes it is normal, he can barely make it to the bathroom however. This has been ongoing for the past 6 months. He notes h/o falls seems llike his leg gives out but he doesn't have lingering issues PT apparently didn't help so he kept going. Has seen a chiropractor without much improvement either. The chiropractor suggested pain management as well. Back Pain This is a chronic problem. The current episode started more than 1 year ago. The problem occurs constantly. The problem has been waxing and waning since onset. The pain is present in the gluteal and sacro-iliac. The quality of the pain is described as aching, shooting and stabbing. The pain is at aseverity of 8/10. The pain is The same all the time. The symptoms are aggravated by coughing, lyingdown, sitting and standing. Stiffness is present All day. Associated symptoms include bowel incontinence, leg pain and weakness. Current Outpatient Medications Medication Sig Dispense Refill atorvastatin (LIPITOR) 20 mg tablet Take 1 tablet (20 mg total) by mouth daily 90 tablet 3 cholecalciferol, vitamin D3, 1,000 unit tablet,chewable cranberry extract 200 mg capsule Take 2 capsules by mouth 3 (three) times a day diclofenac DR (VOLTAREN) 75 mg EC tablet Take 1 tablet (75 mg total) by mouth 2 (two) times a day 180 tablet 3 finasteride (PROSCAR) 5 mg tablet Take 1 tablet by mouth daily fluticasone propionate (FLONASE) 50 mcg/actuation nasal spray Administer 2 sprays into each nostrildaily 3 each 4 lecithin 1,200 mg capsule Take 1 capsule by mouth 2 (two) times a day omega 8-cyj-pyv-fish oil 360-1,200 mg capsule,delayed release(DR/EC) Take 1 capsule by mouth daily omeprazole (PriLOSEC) 20 mg capsule Take 1 capsule (20 mg total) by mouth daily 30 capsule 0 oxyCODONE-acetaminophen (PERCOCET) 5-325 mg per tablet Take 1 tablet by mouth every 6 (six) hours as needed for pain Do not exceed 6 tablets per day. 90 tablet 0 peg 400-propylene glycol (SYSTANE) 0.4-0.3 % ophthalmic solution Administer 1 drop into both eyes as needed tamsulosin (FLOMAX) 0.4 mg extended release capsule Take 0.4 mg by mouth daily vitamin b complex (Vitamins B Complex) tablet Take 1 tablet by mouth daily vitamin E (AQUASOL E) 1,000 unit capsule Take 5,000 Units by mouth daily albuterol HFA (PROVENTIL HFA,VENTOLIN HFA,PROAIR HFA) 90 mcg/actuation inhaler Inhale 2 puffs every4 (four) hours as needed for wheezing 1 each 3 zolskcf-wpsvhpxvj-ossk 333-133-5 mg tablet Take 1,200 mg by mouth daily fluticasone furoate-vilanteroL (Breo Ellipta) 100-25 mcg/dose diskus inhaler Inhale 1 puff daily 3 each 1 Current Facility-Administered Medications Medication Dose Route Frequency Provider Last Rate Last Admin cefTRIAXone (ROCEPHIN) 350 mg/mL intramuscular injection 1,000 mg 1,000 mg intramuscular Q24H Lamin Bowser MD 1,000 mg at 09/17/20 0955 Allergies: Other Past Medical History: Diagnosis Date Anxiety Arthritis [...] Diskectomy Lumbar - (Added by TW Conv) ID TONSILLECTOMY PRIMARY/SECONDARY <AGE 14 Tonsillectomy - (Added [...] Types: Pipe Quit date: 11/28/1979 Years since quittin.6 Smokeless tobacco: Never Substance and Sexual Activity Drug use: Never Sexual activity: Not Currently control/protection: None Alcohol Use: Not on file Review of Systems Constitutional: Negative. HENT: Negative. Eyes: Negative. Respiratory: Negative. Cardiovascular: Negative. Gastrointestinal: Positive for bowel incontinence. Negative for constipation and diarrhea. Positive for fecal urgency Genitourinary: Negative. Musculoskeletal: Positive for back pain. Skin: Negative. Neurological: Positive for weakness. Endo/Heme/Allergies: Negative. Psychiatric/Behavioral: Negative. Negative for depression. OBJECTIVE: BP 110/70 (BP Location: Right arm, Patient Position: Sitting) Pulse 73 Temp (!) 35.9 ??C (96.7 ??F) (Temporal) Resp 16 Ht 177.8 cm (5' 10 ) Wt 72.6 kg (160 lb) SpO2 97% BMI 22.96 kg/m?? Physical Exam Vitals reviewed. Constitutional: Appearance: He is well-developed and normal weight. He is not ill-appearing. HENT: Head: Normocephalic and atraumatic. Right Ear: External ear normal. Left Ear: External ear normal. Mouth/Throat: Mouth: Mucous membranes are moist. Pharynx: Oropharynx is clear. Eyes: Conjunctiva/sclera: Conjunctivae normal. Neck: Vascular: No carotid bruit. Cardiovascular: Rate and Rhythm: Normal rate and regular rhythm. Heart sounds: Normal heart sounds. No murmur heard. No friction rub. No gallop. Pulmonary: Effort: Pulmonary effort is normal. Breath sounds: Normal breath sounds. Abdominal: General: Bowel sounds are normal. Palpations: Abdomen is soft. Tenderness: There is no abdominal tenderness. There is no guarding or rebound. Musculoskeletal: Cervical back: Normal range of motion and neck supple. Lumbar back: Spasms present. Decreased range of motion. Right lower leg: No edema. Left lower leg: No edema. Skin: General: Skin is warm and dry. Neurological: Mental Status: He is alert and oriented to person, place, and time. Cranial Nerves: No cranial nerve deficit. Sensory: Sensation is intact. Motor: Motor function is intact. Psychiatric: Mood and Affect: Mood normal. Behavior: Behavior normal. Diagnoses and all orders for this visit: Encounter to establish care with new doctor (Primary) Assessment & Plan: A(n) initial visit to establish care has [...] help control asthma Refilled albuterol Awaiting labs Encounter for administration of vaccine - Pneumococcal conjugate vaccine 20-valent IM (Prevnar-20) Degenerative lumbar spinal stenosis - Ambulatory referral to Pain Management; Future - Ambulatory referral order to Physical Therapy -; Future Chronic bilateral low back pain with bilateral sciatica - Ambulatory referral to Pain Management; Future - Ambulatory referral order to Physical Therapy -; Future Gastroesophageal reflux disease with esophagitis without hemorrhage Comments: continuing omeprazole Hypercholesterolemia - Lipid panel; Future - Comprehensive metabolic panel; Future - CBC with auto differential; Future History of prostate cancer - PSA diagnostic; Future At maximum risk for fall - Ambulatory referral order to Physical Therapy -; Future Mild intermittent asthma without complication - fluticasone furoate-vilanteroL (Breo Ellipta) 100-25 mcg/dose diskus inhaler; Inhale 1 puff daily - albuterol HFA (PROVENTIL HFA,VENTOLIN HFA,PROAIR HFA) 90 mcg/actuation inhaler; Inhale 2 puffs every 4 (four) hours as needed for wheezing 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[facility]) ([facility]) Comments: mostly under control Prostate cancer ([facility]) ([facility]) Comments: PSA needs to be surveilled; ordered today (last was in 2019) Orders: - PSA diagnostic; Future . There may be grammatical errors in this note due to use of voice recognition software. GER TESTER documented in this encounter Miscellaneous Notes * Assessment & Plan Note - Sohan Rojas MD - 07/28/2022 1:21 PM CHARGER TESTER Associated Problem(s): Encounter for Medicare annual wellness exam A(n) initial visit to establish care has [...] help control asthma Refilled albuterol Awaiting labs GER TESTER documented in this encounter Plan of Treatment Scheduled Referrals Name Type Priority Associated Diagnoses Order Schedule Ambulatory referral to Pain Management Outpatient Referral Routine Degenerative lumbar spinal stenosis Chronic bilateral low back pain with bilateral sciatica 1 Occurrences starting 07/27/2022 until 01/24/2023 documented as of this encounter Results * (ABNORMAL) CBC with auto differential (07/27/2022 1:40 PM CHARGER TESTER) WBC 6.7 3.8 - 9.9 K/cumm [facility] Hgb 14.2 13.0 - 17.5 g/dL [facility] Hct 42.7 38.9 - 50.3 % [facility] Plt 185 150 - 400 K/cumm [facility] MPV 10.1 9.1 - 12.3 fL [facility] RBC 4.32 4.30 - 5.80 M/cumm [facility] MCV 98.8(H) 81.3 - 96.4 fL [facility] MCH 32.9 27.1 - 33.3 pg [facility] MCHC 33.3 32.3 - 35.7 g/dL [facility] RDW CV 12.9 11.1 - 14.9 % [facility] RDW SD 47.0 35.7 - 48.1 fL [facility] NRBC abs 0.00 0.00 - 0.01 K/cumm [facility] Blood 07/27/2022 1:40 PM CHARGER TESTER 07/27/2022 8:34 PM CHARGER TESTER us Sohan Rojas MD LAB BLOOD ORDERABLES Final Result [facility] [id number] [address] Department [place] [address] * (ABNORMAL) Comprehensive metabolic panel (07/27/2022 1:40 PM CHARGER TESTER) Pathologist [facility] Sodium 140 135 - 145 mmol/L [facility] Potassium, pl 5.0(H) 3.3 - 4.9 mmol/L [facility] Chloride 105 97 - 110 mmol/L [facility] CO2 27 22 - 32 mmol/L [facility] Anion gap 8 2 - 15 mmol/L [facility] BUN 18 8 - 25 mg/dL [facility] Creatinine 0.90 0.80 - 1.30 mg/dL [facility] Glucose 102 70 - 199 mg/dL [facility] Comment: Interpretive Data Fasting glucose >/= 126 [...] classification and Diagnosis of Diabetes Diabetes Care 2017;40 (Suppl. 1):S11. Current interpretive data was last revised 2017. Calcium 9.7 8.5 - 10.3 mg/dL [facility] Bilirubin, total 0.7 0.1 - 1.2 mg/dL [facility] Protein, pl 7.2 6.5 - 8.5 g/dL [facility] Albumin 4.5 3.5 - 5.0 g/dL [facility] Alk phos 61 40 - 130 Units/L [facility] ALT 28 7 - 55 Units/L [facility] AST 24 10 - 50 Units/L [facility] Blood 07/27/2022 1:40 PM CHARGER TESTER 07/27/2022 8:34 PM CHARGER TESTER us Sohan Rojas MD LAB BLOOD ORDERABLES Final Result [facility] [id number] [address] Department of Laboratories [place], [place] [id number] * (ABNORMAL) Lipid panel (07/27/2022 1:40 PM CHARGER TESTER) Cholesterol 183 30 - 199 mg/dL [facility] Comment: Interpretive Data Ages < or = 19 years ??Acceptable: ? <170 mg/dL ??Borderline high: ??170-199 mg/dL ??High: ? >or= 200 mg/dL Ages > or = 20 years ??Desirable: ?<200 mg/dL ??Borderline high: ??200-239 mg/dL ??High: ? >or= 240 mg/dL Literature References: 1. Expert Panel on Integrated Guidelines for Cardiovascular Health and Risk Reduction in Children and Adolescents. Pediatrics 2011;128:S213 2. NCEP Expert Panel. Circulation 2004;110:227 Current Interpretive Data was last revised on 2018. Triglycerides 209(H) <=149 mg/dL [facility] Comment: Interpretive Data Ages < or = 9 years ??Acceptable: ? <75 mg/dL ??Borderline high: ??75-99 mg/dL ??High: ? >or= 100 mg/dL Ages 10 to 20 years ??Acceptable: ? <90 mg/dL ??Borderline high: ??90-129 mg/dL ??High: ? >or= 130 mg/dL Ages > or = 20 years ??Desirable: ?<150 mg/dL ??Borderline high: ??150-199 mg/dL ??High: ? 200-499 mg/dL ?Very high: ?? >or= 499 mg/dL Literature References: 1. Expert Panel on Integrated Guidelines for Cardiovascular Health and Risk Reduction in Children and Adolescents. Pediatrics 2011;128:S213 2. NCEP Expert Panel. Circulation 2004;110:227 Current Interpretive Data was last revised on 2018. HDL 38(L) >=40 mg/dL [facility] Comment: Interpretive Data Ages < or = 19 years ??Acceptable: ? >45 mg/dL ??Borderline low: ?? 40-45 mg/dL ??Low: ? <40 mg/dL Ages > or = 20 years ??Desirable: ?>or= 60 mg/dL ??Low: ? <40 mg/dL Literature References: 1. Expert Panel on Integrated Guidelines for Cardiovascular Health and Risk Reduction in Children and Adolescents. Pediatrics 2011;128:S213 2. NCEP Expert Panel. Circulation 2004;110:227 Current Interpretive Data was last revised on 2018. LDL, calculated 103 <=129 mg/dL [facility] Comment: Interpretive Data Ages < or = 19 years ??Acceptable: ? <110 mg/dL ??Borderline high: ??110-129 mg/dL ??High: ?>or= 130 mg/dL Ages > or = 20 years ??Optimal: ? <100 mg/dL ??Near optimal: ?100-129 mg/dL ??Borderline high: ?? 130-159 mg/dL ??High: ?>160 mg/dL Literature References: 1. Expert Panel on Integrated Guidelines for Cardiovascular Health and Risk Reduction in Children and Adolescents. Pediatrics 2011;128:S213 2. NCEP Expert Panel. Circulation 2004;110:227 Current Interpretive Data was last revised on 2018. Non-HDL Cholesterol 145 mg/dL [facility] Comment: Interpretive Data Ages < or = 19 years ??Acceptable: ?<120 mg/dL ??Borderline high: ??120-144 mg/dL ??High: ?>145 mg/dL Ages > or = 20 years ??When triglycerides are >200 mg/dL, Non-HDL cholesterol is a secondary target of ? therapy with treatment goals that are 30 mg/dL greater than the LDL cholesterol target. ? Literature References: 1. Expert Panel on Integrated Guidelines for Cardiovascular Health and Risk Reduction in Children and Adolescents. Pediatrics 2011;128:S213 2. NCEP Expert Panel. Circulation 2004;110:227 Current Interpretive Data was last revised on 2018. Chol/HDL ratio 5 [facility] Blood 07/27/2022 1:40 PM CHARGER TESTER 07/27/2022 8:34 PM CHARGER TESTER us Sohan Rojas MD LAB BLOOD ORDERABLES Final Result [facility] [id number] [address] Department [place] [address] * PSA diagnostic (07/27/2022 1:40 PM CHARGER TESTER) PSA-Total <0.01 <=6.20 ng/mL [facility] Comment: Interpretive Data ?AGE ? SEX ?REFERENCE INTERVAL 0 minutes-150 years ?Female ?None 0 minutes-49 years ? Male ?None ? 50-59 years ? Male ?0-3.90 ? 60-69 years ? Male ?0-5.40 ? 70-79 years ? Male ?0-6.20 ? 80-150 years ?Male ?0-6.20 The Lou PSA Total assay procedure was used. Results from different manufacturers or methods may not be comparable. Serial testing should be performed using the same method. Current interpretive data last revised 21. Blood 07/27/2022 1:40 PM CHARGER TESTER 07/27/2022 8:34 PM CHARGER TESTER us Sohan Rojas MD LAB BLOOD ORDERABLES Final Result [facility] [id number] [address] Department [place] [address] documented in this encounter Visit Diagnoses Diagnosis Encounter to establish care with new doctor- Primary Encounter for administration of vaccine Degenerative lumbar spinal stenosis Spinal stenosis of lumbar region Chronic bilateral low back pain with bilateral sciatica Gastroesophageal reflux disease with esophagitis without hemorrhage Hypercholesterolemia Pure hypercholesterolemia History of prostate cancer Personal history of malignant neoplasm of prostate At maximum risk for fall Mild intermittent asthma without complication 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HCC) Prostate cancer (HCC) Malignant neoplasm of prostate documented in this encounter Discontinued Medications Medication Sig Discontinue Reason Start Date End Da te triamcinolone (KENALOG) 0.1 % cream 1 application 2 (two) times a day 07/27/2022 aspirin-calcium carbonate 81 mg-300 mg calcium(777 mg) tablet Take 81 mg by mouth daily 03/10/2016 07/27/2022 selenium 200 mcg tablet Take 1 tablet by mouth daily 07/27/2022 naloxegoL (MOVANTIK) 25 mg tabletIndications:Cons tipation due to opioid therapy Take 1 tablet (25 mg total) by mouth daily 07/04/2020 07/27/2022 phenylephrine (RENETTA-SYNEPHRINE) 1 % spray,non-aerosol 2-3 sprays every 4 (four) hours as needed 07/27/2022 cholecalciferol (VITAMIN D-3) 1,000 unit capsule Take 1,200 Units by mouth daily 03/10/2016 07/27/2022 albuterol HFA (PROVENTIL HFA,VENTOLIN HFA,PROAIR HFA) 90 mcg/actuation inhaler Inhale 2 puffs every 4 (four) hours as needed for wheezing Reorder 07/15/2022 07/27/2022 thdkeon-xauwpcpmv-agft 333-133-5 mg tablet Take 1,200 mg by mouth daily 03/10/2016 07/28/2022 documented as of this encounter Historical Medications * This list may reflect changes made after this encounter. cholecalciferol, vitamin D3, 1,000 unit tablet,chewable Take 1 tablet/chew tab by mouth daily 06/08/2024 added in this encounter Orders Immunization/Injection Count Last Ordered Date First Ordered Date PNEUMOCOCCAL CONJUGATE VACCI NE 20 VALENT IM 1 07/27/2022 documented in this encounter Care Teams Platform Attendant Relationship Specialty Start Date End Date Sohan Rojas MD [address] [place] [address] [address] [place] [address] PCP - General Family Medicine 07/10/22 Lamin Mcgraw MD [address] [place] [address] Consulting Physician Urology 07/27/22 documented as of this encounter
--- OUTSIDE RECORDS SUMMARY | 2024-08-07 02:26 | XMS_ITS | Encounter Summary ---
Author Organization [facility] Address [address] [place] [address] Care Team Providers Care Water Resource Engineer Name Role Phone Lamin Ricci MD Primary Care Provider [phone] Reason for Visit * Reason Onset Date Comments Illness 12/09/2020 Encounter Details Date Type Department Care Team (Late st Contact Info) Description 12/09/2020 Telephone [facility] Family Medicine [address] [place] [address] Lamin Ricci MD [address] [place] [id number] Illness Social History Tobacco Use Types Packs/Day Years [...] and Family Twice a week 05/31/2019 Attends [employer] Services Never 05/31 Active Member of Clubs or Organizations No 05/31/2019 Attends Club or Organization Meetings Never 05/31/2019 Marital Status 05/31/2019 AUDIT-C Answer Date Recorded Q1: How often do you have a drink containing alc ohol? 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 21 tablet 12/09/2020 1 azithromycin (ZITHROMAX) 250 mg tablet Take 2 tabs (500 mg) by mouth today, than 1 daily for 4 days. 6 tablet 12/09/2020 1 documented in this encounter Miscellaneous Notes * Telephone Encounter - Jazzy Fink MA - 12/09/2020 2:03 PM CDT Pt lvm requesting zpack and mdp for sinus [facility] Ok per Radhames sent documented in this encounter Plan of Treatment Not on file documented as of this encounter Visit Diagnoses Not on filedocumented in this encounter Care Teams Water Resource Engineer Relationship Specialty Start Date End Date Lamin Ricci MD PCP - General Family Medicine 10/07/18 07/09/22 documented as of this encounter
--- OUTSIDE RECORDS SUMMARY | 2024-08-07 02:26 | XMS_ITS | Encounter Summary ---
Author Organization [facility] Address [address] [place] [address] Care Team Providers Care Product Safety Associate Name Role Phone Lamin Ricci MD Primary Care Provider [phone] Encounter Details Date Type Department Care Team (Late st Contact Info) Description 09/15/2021 Orders Only [facility] [place] Health Information Management [address] [place] [address] Scanning, Provider Social History Tobacco Use Types Packs/Day Years [...] Frequency of Binge Drinking Not on file 0609/2020 Overall Financial Resource Strain (CARDIA) Answe r Date Recorded Difficulty of Paying Living Expenses Not hard at all 05/31/2019 PHQ-2 Answer Date Recorded PHQ-2 Total Score (If total score is 3 or more points, staff should administer the PHQ-9) 0 06/19/2021 [facility] - Occupational Stress Questionnaire Answer Date [...] file 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 Gender Identity Male 03/24/2021 7:53 PM CDT Sexual Orientation Straight 03/24/2021 7: 53 PM CDT Occupation Industry Job Start Date Job End Date retired Not on file Not on file Not on file documented as of this encounter Plan of Treatment Not on file documented as of this encounter Procedures Procedure Name Priority Date/Time Associated Diagnosis Comments GI - RESULT 09/15/2021 SCAN - PATHOLOGY 09/15/2021 documented in this encounter Results * SCAN - PATHOLOGY (09/15/2021) us Provider Scanning Final Result * GI - RESULT (09/15/2021) Anatomical Region Laterality Modality Other us Provider Scanning Final Result documented in this encounter Visit Diagnoses Not on filedocumented in this encounter Care Teams Product Safety Associate Relationship Specialty Start Date End Date Lamin Ricci MD PCP - General Family Medicine 10/07/18 07/09/22 documented as of this encounter
--- OUTSIDE RECORDS SUMMARY | 2024-08-07 02:26 | XMS_ITS | Encounter Summary ---
Author Organization [facility] Address [address] [place] [address] Care Team Providers Care Web Site Designer Name Role Phone Lamin Ricci MD Primary Care Provider [phone] Reason for Visit * Reason Comments Follow-up sinusitis Encounter Details Date Type Department Care Team ([facility] st Contact Info) Description 10/15/2020 9:15 AM CDT Office Visit [facility] Family Medicine [address] [place] [address] Lamin Ricci MD [facility] [address] [place] [address] [address] [place] [address] Degenerative lumbar spinal stenosis (Primary Dx); Gastroesophageal reflux disease with esophagitis without hemorrhage; Hypercholesterolemia; Benign prostatic hyperplasia without lower urinary tract symptoms Social History Tobacco Use Types Packs/Day Years [...] Marital Status 05/31/2019 AUDIT-C Answer Date Recorded Frequency of Alcohol Consumption Never 10/19/2018 Average Number of Drinks Not on file 019 Frequency of Binge Drinking Not on file 09/2018 Overall Financial Resource Strain (CARDIA) Answe r Date Recorded Difficulty of Paying Living Expenses Not hard at all 05/31/2019 PHQ-2 Answer Date Recorded PHQ-2 Total Score (If total score is 3 or more points, staff should administer the PHQ-9) 0 06/03/2020 [facility] of Occupat ional Health - Occupational [...] on file 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 Gender Identity Male 03/24/2021 7:53 PM CDT Sexual Orientation Straight 03/24/2021 7: 53 PM CDT Occupation Industry Job Start Date Job End Date retired Not on file Not on file Not on file documented as of this encounter Last Filed Vital Signs Vital Sign Reading Time Taken Comments Blood Pressure 120/70 10/15/2020 9:15 AM CDT Pulse 68 10/15/2020 9:15 AM CDT Temperature 36.7 ??C (98.1 ??F) 10/15/2020 9:15 AM CD T Respiratory Rate 18 10/15/2020 9:15 AM CDT Oxygen Saturation 97% 10/15/2020 9:15 AM CDT Inhaled Oxygen Concentration - - Weight 75.3 kg (166 lb) 10/15/2020 9:15 AM CDT Height 177.8 cm (5' 10 ) 10/15/2020 9:15 AM CDT Body Mass Index 23.82 10/15/2020 9:15 AM CDT documented in this encounter Progress Notes * Lamin Ricci MD - 10/15/2020 9:15 AM CDT Images from the original note were not included. Subjective/Objective Patient ID: Gulshan Johnston is a 80 y.o. male. Visit Date: 10/15/2020 Chief Complaint Follow-up (sinusitis ) HPI Returns to the office for repeat evaluation. States that the sinuses are better. hte lipds are under control and the lumbar back pain is stable. The bph is under control. Taking the vit d as directed. The gerd is under control. Review of Systems Constitutional: Negative for activity change. HENT: Negative for congestion. Eyes: Negative for visual disturbance. Respiratory: Negative for cough and chest tightness. Cardiovascular: Negative for chest pain and leg swelling. Gastrointestinal: Negative for abdominal pain, blood in stool, constipation, diarrhea and nausea. Genitourinary: Negative for difficulty urinating. Musculoskeletal: Negative for arthralgias, back pain and gait problem. Skin: Negative for rash. Neurological: Negative for headaches. Psychiatric/Behavioral: Negative for sleep disturbance. The patient is not nervous/anxious. Physical Exam Vitals reviewed. Constitutional: General: He is not in acute distress. Appearance: He is well-developed. HENT: Head: Normocephalic. Right Ear: External ear normal. Left Ear: External ear normal. Eyes: Conjunctiva/sclera: Conjunctivae normal. Pupils: Pupils are equal, round, and reactive to light. Neck: Thyroid: No thyromegaly. Comments: ROM appropriate Cardiovascular: Rate and Rhythm: Normal rate and regular rhythm. Heart sounds: Normal heart sounds. No murmur. No friction rub. No gallop. Pulmonary: Effort: [...] Diagnoses and all orders for this visit: Degenerative lumbar spinal stenosis (M48.061) (Primary) Comments: conditoin chrnoic and pain is controlled. refill the pain meds. Gastroesophageal reflux disease with esophagitis without hemorrhage (K21.00) Comments: conditoin chronic and at goal. continue wallace prilosec Hypercholesterolemia (E78.00) Comments: conditon chronic and at goal. refill the lipitor Benign prostatic hyperplasia without lower urinary tract symptoms (N40.0) Comments: conditon chronic adn at goal. continue the flomax adn the proscar Lamin Ricci MD documented in this encounter Plan of Treatment Not on file documented as of this encounter Visit Diagnoses Diagnosis Degenerative lumbar spinal stenosis- Primary Spinal stenosis of lumbar region Gastroesophageal reflux disease with esophagitis without hemorrhage Hypercholesterolemia Pure hypercholesterolemia Benign prostatic hyperplasia without lower urinary tract symptoms documented in this encounter Discontinued Medications Medication Sig Discontinue Reason Start Date End Da te cefuroxime (CEFTIN) 250 mg tabletIndications:Acute non-recurrent maxillary sinusitis Take 1 tablet (250 mg total) by mouth 2 (two) times a day Therapy completed 09/17/2020 10/15/2020 methylPREDNISolone (MEDROL DOSEPACK) 4 mg DosepackIndications:Acu te non-recurrent maxillary sinusitis Take as directed on package. Therapy completed 09/17/2020 10/15/2020 documented as of this encounter Care Teams Web Site Designer Relationship Specialty Start Date End Date Lamin Ricci MD PCP - General Family Medicine 10/07/18 07/09/22 documented as of this encounter
--- OUTSIDE RECORDS SUMMARY | 2024-08-07 02:26 | XMS_ITS | Encounter Summary ---
Author Organization [facility] Address [address] [place] [address] Care Team Providers Care Digital Solutions Architect Name Role Phone Sohan Rojas MD Primary Care Provider [phone] Lamin Mcgraw MD Unavailable [phone] Encounter Details Date Type Department Care Team (Late st Contact Info) Description 07/27/2022 2:45 PM SKILLED TRADES TEACHER Lab [facility] Outpatient Lab at [address] [address] Encounter for medical examination to establish care Social History Tobacco Use Types Packs/Day [...] staff should administer the PHQ-9) 0 07/27/2022 [facility] Occupat ional Health - [...] on file 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 Gender Identity Male 03/24/2021 7:53 PM CDT Sexual Orientation Straight 03/24/2021 7: 53 PM CDT Occupation Industry Job Start Date Job End Date retired Not on file Not on file Not on file documented as of this encounter Plan of Treatment Not on file documented as of this encounter Visit Diagnoses Diagnosis Encounter for medical examination to establish care documented in this encounter Care Teams Digital Solutions Architect Relationship Specialty Start Date End Date Sohan Rojas MD [address] [address] PCP - General Family Medicine 07/10/22 Lamin Mcgraw MD [address] [place] [address] Consulting Physician Urology 07/27/22 documented as of this encounter
--- OUTSIDE RECORDS SUMMARY | 2024-08-07 02:26 | XMS_ITS | Encounter Summary ---
Author Organization [facility] Address [address] [place] [address] Care Team Providers Care Internal Auditor Name Role Phone Lamin Ricci MD Primary Care Provider [phone] Reason for Visit * Reason Comments Sinusitis Encounter Details Date Type Department Care Team ([facility] st Contact Info) Description 12/19/2020 7:30 AM CDT Office Visit [facility] Family Medicine [address] [place] [address] Lamin Ricci MD [address] [place] [address] Acute non-recurrent maxillary sinusitis (Primary Dx); Gastroesophageal reflux disease with esophagitis without hemorrhage; Degenerative lumbar spinal stenosis; Benign prostatic hyperplasia without lower urinary tract symptoms; Vitamin D deficiency Social History Tobacco Use Types Packs/Day Years [...] staff should administer the PHQ-9) 0 06/03/2020 [facility] of Occupat ional Health - Occupational [...] file 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 Gender Identity Male 03/24/2021 7:53 PM CDT Sexual Orientation Straight 03/24/2021 7: 53 PM CDT Occupation Industry Job Start Date Job End Date retired Not on file Not on file Not on file documented as of this encounter Last Filed Vital Signs Vital Sign Reading Time Taken Comments Blood Pressure 128/66 12/19/2020 7:35 AM CDT Pulse 77 12/19/2020 7:35 AM CDT Temperature 36.6 ??C (97.8 ??F) 12/19/2020 7:35 AM CD T Respiratory Rate 19 12/19/2020 7:35 AM CDT Oxygen Saturation 98% 12/19/2020 7:35 AM CDT Inhaled Oxygen Concentration - - Weight 74.8 kg (164 lb 12.8 oz) 12/19/2020 7:35 AM CDT Height 177.8 cm (5' 10 ) 12/19/2020 7:35 AM CDT Body Mass Index 23.65 12/19/2020 7:35 AM CDT documented in this encounter Ordered Prescriptions Prescription Sig Dispense Quantity Refills Last Filled Start Date End Date azithromycin (ZITHROMAX) 250 mg tabletIndications: Acute non-recurrent maxillary sinusitis Take 2 tabs (500 mg) by mouth today, than 1 daily for 4 days. 6 tablet 12/19/2020 1 methylPREDNISolone (MEDROL DOSEPACK) 4 mg DosepackIndication s:Acute non-recurrent maxillary sinusitis Take as directed on package. 21 tablet 12/19/2020 1 documented in this encounter Progress Notes * Lamin Ricci MD - 12/19/2020 7:30 AM CDT Images from the original note were not included. Subjective/Objective Patient ID: Gulshan Johnston is a 80 y.o. male. Visit Date: 12/19/2020 Chief Complaint Sinusitis HPI Returns to the office for repeat evaluation. States that he has been having sinus drainage and congestion. States that he has congestion and postnasal drip. The lumbar back pain continues and the lipids are under control. The bph is under control and the constipation is stbale Review of Systems Constitutional: Negative for activity change. HENT: Positive for congestion and postnasal drip. Eyes: Negative for visual disturbance. Respiratory: Negative [...] He is well-developed. HENT: Head: Normocephalic. Comments: Nasal congetion and cobblesotining in the pop Right Ear: External ear normal. Left Ear: [...] Diagnoses and all orders for this visit: Acute non-recurrent maxillary sinusitis (J01.00) (Primary) Comments: condition acute. z pack and medrol dose pack Gastroesophageal reflux disease with esophagitis without hemorrhage (K21.00) Comments: condition chronic nad at goal continue the prilosec Degenerative lumbar spinal stenosis (M48.061) Comments: condition chronic and at goal. continue the pain meds as directed. Benign prostatic hyperplasia without lower urinary tract symptoms (N40.0) Comments: condition chronic and at goal continue the proscar adn the flomax Vitamin D deficiency (E55.9) Comments: condition chronic and and at goal continue the vit d daily Lamin Ricci MD documented in this encounter Plan of Treatment Not on file documented as of this encounter Visit Diagnoses Diagnosis Acute non-recurrent maxillary sinusitis- Primary Gastroesophageal reflux disease with esophagitis without hemorrhage Degenerative lumbar spinal stenosis Spinal stenosis of lumbar region Benign prostatic hyperplasia without lower urinary tract symptoms Vitamin D deficiency documented in this encounter Discontinued Medications Medication Sig Discontinue Reason Start Date End Da te ketoconazole (NIZORAL) 2 % cream APPLY TWICE DAILY TO GROIN AND BUTTOCK RASH FOR 4 WEEKS Therapy completed 11/19/2018 12/19/2020 documented as of this encounter Care Teams Internal Auditor Relationship Specialty Start Date End Date Lamin Ricci MD PCP - General Family Medicine 10/07/18 07/09/22 documented as of this encounter
--- OUTSIDE RECORDS SUMMARY | 2024-08-07 02:26 | XMS_ITS | Encounter Summary ---
Author Organization [facility] Address [address] [place] [address] Care Team Providers Care Fiberglass Dowel Drawing Operator Name Role Phone Lamin Ricci MD Primary Care Provider [phone] Reason for Visit * Reason Comments balance problem Encounter Details Date Type Department Care Team ([facility] st Contact Info) Description 10/08/2021 1:45 PM CDT Office Visit [facility] Family Medicine [address] [place] [address] Lamin Ricci MD [address] [place] [address] [address] [place] [address] Degenerative lumbar spinal stenosis (Primary Dx); Balance disorder; 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; Gastroesophageal reflux disease with esophagitis without hemorrhage Social History Tobacco Use Types Packs/Day Years [...] and Family Twice a week 05/31/2019 Attends Jewish Services Never 05/31 Active Member of Clubs [...] should administer the PHQ-9) 0 06/19/2021 [facility] Occupat ional Health - [...] on file 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 Gender Identity Male 03/24/2021 7:53 PM CDT Sexual Orientation Straight 03/24/2021 7: 53 PM CDT Occupation Industry Job Start Date Job End Date retired Not on file Not on file Not on file documented as of this encounter Last Filed Vital Signs Vital Sign Reading Time Taken Comments Blood Pressure 122/80 10/08/2021 2:06 PM CDT Pulse 72 10/08/2021 2:06 PM CDT Temperature - - Respiratory Rate 16 10/08/2021 2:06 PM CDT Oxygen Saturation 99% 10/08/2021 2:06 PM CDT Inhaled Oxygen Concentration - - Weight 76.2 kg (168 lb) 10/08/2021 2:06 PM CDT Height 177.8 cm (5' 10 ) 10/08/2021 2:06 PM CDT Body Mass Index 24.11 10/08/2021 2:06 PM CDT documented in this encounter Progress Notes * Lamin Ricci MD - 10/08/2021 1:45 PM CDT Images from the original note were not included. Subjective/Objective Patient ID: Gulshan Johnston is a 81 y.o. male. Visit Date: 10/08/2021 Chief Complaint balance problem HPI Returns to the office for repeat evaluation. States that he has a balance problem and nearly falling. The lumbar back pain is undre ocntrol and the bph is under control and thelipois are stable. The prilosec is under conrol Review of Systems Constitutional: Negative for activity change. HENT: Negative for congestion. Eyes: Negative for visual disturbance. Respiratory: Negative for cough and chest tightness. Cardiovascular: Negative for chest pain and leg swelling. Gastrointestinal: Negative for abdominal pain, blood in stool, constipation, diarrhea and nausea. Genitourinary: Negative for difficulty urinating. Musculoskeletal: Negative for arthralgias, back pain and gait problem. Balacne issues Skin: Negative for rash. Neurological: Negative for headaches. Balance problem Psychiatric/Behavioral: Negative for sleep disturbance. The patient [...] tenderness. Musculoskeletal: Cervical back: Neck supple. Comments: Balance difficulty Skin: General: Skin is warm and dry. Capillary Refill: Capillary refill takes less than 2 seconds. Neurological: Mental Status: He is alert and oriented to person, place, and time. Psychiatric: Behavior: Behavior normal. Assessment/Plan Diagnoses and all orders for this visit: Degenerative lumbar spinal stenosis (M48.061) (Primary) Comments: condition chroinc and at goal refill hte pain meds. Balance disorder (R26.89) Comments: condition chroinc adn getting worse. 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
--- OUTSIDE RECORDS SUMMARY | 2024-08-07 02:26 | XMS_ITS | Encounter Summary ---
Author Organization [facility] Address [address] [place] [address] Care Team Providers Care Material Distributor Name Role Phone Lamin Ricci MD Primary Care Provider [phone] Reason for Visit * Reason Comments Follow-up Degenerative lumbar spinal stenosis Encounter Details Date Type Department Care Team (Late st Contact Info) Description 11/14/2020 8:45 AM CDT Office Visit [facility] Family Medicine [address] [place] [address] Lamin Ricci MD 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8 cm (5' 10 ) 11/14/2020 8:59 AM CDT Body Mass Index 24.05 11/14/2020 8:59 AM CDT documented in this encounter Ordered Prescriptions Prescription Sig Dispense Quantity Refills Last Filled Start Date End Date oxyCODONE-acetamin ophen (PERCOCET) 5-325 mg per tabletIndications: Pain Take 1 tablet by mouth every 6 (six) hours as needed for pain Do not exceed 6 tablets per day. 90 tablet 11/14/2020 documented in this encounter Progress Notes * Lamin Ricci MD - 11/14/2020 8:45 AM CDT Images from the original note were not included. Subjective/Objective Patient ID: Gulshan Johnston is a 80 y.o. male. Visit Date: 11/14/2020 Chief Complaint Follow-up (Degenerative lumbar spinal stenosis) HPI Returns to the office for repeat evaluation. States that he continues to have pain in the lumbar back pain. The lipids are under control andt eh constipation is stable and the gerd is under control. Taking hte vit d daily Review of Systems Constitutional: Negative for activity change. HENT: Negative for congestion. Eyes: Negative for visual disturbance. Respiratory: Negative for cough and chest tightness. Cardiovascular: Negative for chest pain and leg swelling. Gastrointestinal: Negative for abdominal pain, blood in stool, constipation, diarrhea and nausea. Genitourinary: Negative for difficulty urinating. Musculoskeletal: Positive for back pain. Negative for arthralgias and gait problem. Skin: Negative for rash. [...] tenderness. Musculoskeletal: Cervical back: Neck supple. Comments: Lumbar back pain Skin: General: Skin is warm and dry. Capillary Refill: Capillary refill takes less than 2 seconds. Neurological: Mental Status: He is alert and oriented to person, place, and time. Psychiatric: Behavior: Behavior normal. Assessment/Plan Diagnoses and all orders for this visit: Degenerative lumbar spinal stenosis (M48.061) (Primary) Comments: condtion chronic and at goal. refill the pain meds. Gastroesophageal reflux disease with esophagitis without hemorrhage (K21.00) Comments: conditon chronic and at [place]. conitnue the prilosec Hypercholesterolemia (E78.00) Comments: condition chronic and at [place]. continue the lipitor Vitamin D deficiency (E55.9) Comments: conditon chronic and at goal continue the vit d daily Benign prostatic hyperplasia without lower urinary tract symptoms (N40.0) Comments: condition chronic and at goal. conitue the flomax Lamin Ricci MD documented in this encounter Plan of Treatment Not on file documented as of this encounter Visit Diagnoses Diagnosis Degenerative lumbar spinal stenosis- Primary Spinal stenosis of lumbar region Gastroesophageal reflux disease with esophagitis without hemorrhage Hypercholesterolemia Pure hypercholesterolemia Vitamin D deficiency Benign prostatic hyperplasia without lower urinary tract symptoms Chronic pain syndrome documented in this encounter Discontinued Medications Medication Sig Discontinue Reason Start Date End Da te oxyCODONE-acetaminophen (PERCOCET) 5-325 mg per tabletIndications:Pain Take 1 tablet by mouth every 6 (six) hours as needed for pain Do not exceed 6 tablets per day. Reorder 10/28/2020 11/14/2020 documented as of this encounter Care Teams Material Distributor Relationship Specialty Start Date End Date Lamin Ricci MD PCP - General Family Medicine 10/07/18 07/09/22 documented as of this encounter
--- OUTSIDE RECORDS SUMMARY | 2024-08-07 02:26 | XMS_ITS | Encounter Summary ---
Author Organization [facility] Address [address] [place] [address] Care Team Providers Care Insulation Worker Apprentice Name Role Phone Lamin Ricci MD Primary Care Provider [phone] Encounter Details Date Type Department Care Team (Late st Contact Info) Description 08/22/2021 Telephone [facility] Family Medicine [address] [place] [address] Lamin Ricci MD [address] [place] [address] [address] [place] [address] Social History Tobacco Use Types Packs/Day Years [...] and Family Twice a week 05/31/2019 Attends [employer] Never 05/31 Active Member of Clubs [...] staff should administer the PHQ-9) 0 06/19/2021 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 Gender Identity Male 03/24/2021 7:53 PM CDT Sexual Orientation Straight 03/24/2021 7: 53 PM CDT Occupation Industry Job Start Date Job End Date retired Not on file Not on file Not on file documented as of this encounter Ordered Prescriptions Prescription Sig Dispense Quantity Refills Last Filled Start Date End Date fluticasone propionate (FLONASE) 50 mcg/actuation nasal spray Administer 2 sprays into each nostril daily 16 g 5 08/22/2021 documented in this encounter Miscellaneous Notes * Telephone Encounter - Sierra Fraire RN - 08/22/2021 11:57 AM HIGH SCHOOL SOCIAL STUDIES TUTOR flonase ordered as replacement due to ins reasons SCHOOL SOCIAL STUDIES TUTOR documented in this encounter Plan of Treatment Not on file documented as of this encounter Visit Diagnoses Not on filedocumented in this encounter Discontinued Medications Medication Sig Discontinue Reason Start Date End Da te mometasone (NASONEX) 50 mcg/actuation nasal sprayIndications:Dysfu nction of both eustachian tubes Administer 2 sprays into each nostril 2 (two) times a day Alternate therapy 05/14/2021 08/22/2021 documented as of this encounter Care Teams Insulation Worker Apprentice Relationship Specialty Start Date End Date Lamin Ricci MD PCP - General Family Medicine 10/07/18 07/09/22 documented as of this encounter
--- OUTSIDE RECORDS SUMMARY | 2024-08-07 02:26 | XMS_ITS | Encounter Summary ---
Author Organization [facility] Address [address] [place] [address] Care Team Providers Care Chief Growth Officer Name Role Phone Sohan Rojas MD Primary Care Provider Lamin Mcgraw MD Unavailable [phone] Encounter Details Date Type Department Care Team (Latest Contact Info) Description 07/27/2022 1:40 PM DEVELOPMENT ASSISTANT - 07/27/2022 11:59 PM DEVELOPMENT ASSISTANT Hospital Encounter [address] [id number] Hypercholesterolemi a; History of prostate cancer; Prostate cancer (CMS/HCC) (HCC) Discharge Disposition: Discharge to home or [...] staff should administer the PHQ-9) 0 07/27/2022 [facility] of Occupat ional Health - Occupational Stress [...] file Legal Sex Male 8:20 PM DEVELOPMENT ASSISTANT Gender Identity Male 03/24/2021 7:53 PM [...] total) by mouth daily 90 tablet 3 10/13/2021 3 calcium-magnesium -zinc 333-133-5 mg tablet Take 1,200 mg by mouth daily 03/10/2016 3 cholecalciferol, vitamin D3, 1,000 unit tablet,chewable [...] 3 07/08/2021 3 finasteride (PROSCAR) 5 mg tablet Take 1 tablet by mouth daily 10/06/2018 3 fluticasone furoate-vilantero L (Breo Ellipta) 100-25 mcg/dose diskus inhalerIndication s:Maintenance Therapy for Asthma Inhale 1 puff daily 3 each 1 07/27/2022 3 fluticasone propionate (FLONASE) 50 mcg/actuation nasal sprayIndications: Acute non-recurrent maxillary sinusitis Administer 2 sprays into each nostril daily 3 each 4 04/15/2022 4 lecithin 1,200 mg capsule Take 1 capsule by mouth 2 (two) times a day 4 omega 1-ejn-crq-fish oil 360-1,200 mg capsule,delayed release(DR/EC) Take 1 capsule by mouth daily 03/10/2016 4 omeprazole (PriLOSEC) 20 mg capsuleIndication s:Gastroesophagea l reflux disease without esophagitis Take 1 capsule (20 mg total) by mouth daily 30 capsule 04/17/2022 3 oxyCODONE-acetami nophen (PERCOCET) 5-325 mg per tabletIndications :Pain Take 1 tablet by mouth every 6 (six) hours as needed for pain Do not exceed 6 tablets per day. 90 tablet 01/27/2022 3 peg 400-propylene glycol (SYSTANE) 0.4-0.3 % ophthalmic solution Administer 1 drop into both eyes as needed 4 tamsulosin (FLOMAX) 0.4 mg extended release capsule Take 0.4 mg by mouth daily 08/19/2018 3 vitamin b complex (Vitamins B Complex) [...] Priority Date/Time Associated Diagnosis Comments EGFR Routine 07/27/2022 1:40 PM DEVELOPMENT ASSISTANT Hypercholesterolem ia DIFFERENTIAL AUTO Routine 07/27/2022 1:4 0 PM DEVELOPMENT ASSISTANT Hypercholesterolem ia CBC WITH AUTO DIFFERENTIAL Routine 07/27/2022 1:40 PM DEVELOPMENT ASSISTANT Hypercholesterolem ia PSA DIAGNOSTIC Routine 07/27/2022 1:40 PM DEVELOPMENT ASSISTANT History of prostate cancer Prostate cancer (CMS/HCC) (HCC) LIPID PANEL Routine 07/27/2022 1:40 PM DEVELOPMENT ASSISTANT Hypercholesterolem ia COMPREHENSIVE METABOLIC PANEL Routine 07/27/2022 1:40 PM DEVELOPMENT ASSISTANT Hypercholesterolem ia documented in this encounter Results * eGFR (07/27/2022 1:40 PM DEVELOPMENT ASSISTANT) Pathologist [facility] eGFR 86 mL/min/1. 73 m2 [facility] Comment: Interpretive Data Reference Interval Normal ?>/= [...] interpretive data was last reviewed 2021. Blood 07/27/2022 1:40 PM DEVELOPMENT ASSISTANT 07/27/2022 9:07 PM DEVELOPMENT ASSISTANT us Sohan Rojas MD LAB BLOOD ORDERABLES Final Result [facility] [id number] [place] [address] * Differential, auto (07/27/2022 1:40 PM DEVELOPMENT ASSISTANT) Neutrophil abs 4.7 1.7 - 6.5 K/cumm [facility] Imm gran abs 0.0 0.0 - 0.1 K/cumm [facility] Lymphocyte abs 1.4 0.8 - 3.3 K/cumm [facility] Monocyte abs 0.5 0.2 - 0.8 K/cumm [facility] Eosinophil abs 0.2 0.0 - 0.5 K/cumm [facility] Basophil abs 0.0 0.0 - 0.1 K/cumm [facility] Neutrophil pct 69.2 % [facility] Comment: Interpretive Data Percent cell count reference ranges are not reported, since discordance with absolute values may lead to misinterpretation of CBC data. Current Interpretive Data was last revised on 2017. Imm gran pct 0.4 % [facility] Comment: Interpretive Data Percent cell count reference ranges are not reported, since discordance with absolute values may lead to misinterpretation of CBC data. Current Interpretive Data was last revised on 2017. Lymphocyte pct 20.2 % [facility] Comment: Interpretive Data Percent cell count reference ranges are not reported, since discordance with absolute values may lead to misinterpretation of CBC data. Current Interpretive Data was last revised on 2017. Monocyte pct 6.8 % [facility] Comment: Interpretive Data Percent cell count reference ranges are not reported, since discordance with absolute values may lead to misinterpretation of CBC data. Current Interpretive Data was last revised on 2017. Eosinophil pct 2.8 % [facility] Comment: Interpretive Data Percent cell count reference ranges are not reported, since discordance with absolute values may lead to misinterpretation of CBC data. Current Interpretive Data was last revised on 2017. Basophil pct 0.6 % [facility] Comment: Interpretive Data Percent cell count reference ranges are not reported, since discordance with absolute values may lead to misinterpretation of CBC data. Current Interpretive Data was last revised on 2017. Blood 07/27/2022 1:40 PM DEVELOPMENT ASSISTANT 07/27/2022 8:34 PM DEVELOPMENT ASSISTANT us Sohan Rojas MD LAB BLOOD ORDERABLES Final Result [facility] [id number] [place] [address] * PSA diagnostic (07/27/2022 1:40 PM DEVELOPMENT ASSISTANT) PSA-Total <0.01 <=6.20 ng/mL [facility] Comment: Interpretive Data ?AGE ? SEX ?REFERENCE [...] last revised 21. Blood 07/27/2022 1:40 PM DEVELOPMENT ASSISTANT 07/27/2022 8:34 PM DEVELOPMENT ASSISTANT us Sohan Rojas MD LAB BLOOD ORDERABLES Final Result [facility] [id number] [place] [address] * (ABNORMAL) Lipid panel (07/27/2022 1:40 PM DEVELOPMENT ASSISTANT) Cholesterol 183 30 - 199 mg/dL [facility] Comment: Interpretive Data Ages < or = [...] on 2018. Triglycerides 209(H) <=149 mg/dL [facility] Comment: Interpretive Data Ages < or = [...] on 2018. HDL 38(L) >=40 mg/dL [facility] Comment: Interpretive Data Ages < or = [...] 2018. LDL, calculated 103 <=129 mg/dL [facility] Comment: Interpretive Data Ages < or = [...] revised on 2018. Non-HDL Cholesterol 145 mg/dL [facility] Comment: Interpretive Data Ages < or = [...] last revised on 2018. Chol/HDL ratio 5 [facility] Blood 07/27/2022 1:40 PM DEVELOPMENT ASSISTANT 07/27/2022 8:34 PM DEVELOPMENT ASSISTANT us Sohan Rojas MD LAB BLOOD ORDERABLES Final Result [facility] [id number] Department of Laboratories [place], [place] [id number] * (ABNORMAL) Comprehensive metabolic panel (07/27/2022 1:40 PM DEVELOPMENT ASSISTANT) Sodium 140 135 - 145 mmol/L [facility] Potassium, pl 5.0(H) 3.3 - 4.9 mmol/L [facility] Chloride 105 97 - 110 mmol/L [facility] CO2 27 22 - 32 mmol/L [facility] [...] Units/L [facility] Blood 07/27/2022 1:40 PM DEVELOPMENT ASSISTANT 07/27/2022 8:34 PM DEVELOPMENT ASSISTANT us Sohan Rojas MD LAB BLOOD ORDERABLES Final Result [facility] [id number] [place] [address] * (ABNORMAL) CBC with auto differential (07/27/2022 1:40 PM DEVELOPMENT ASSISTANT) WBC 6.7 3.8 - 9.9 K/cumm [facility] [...] abs 0.00 0.00 - 0.01 K/cumm [facility] Blood 07/27/2022 1:40 PM DEVELOPMENT ASSISTANT 07/27/2022 8:34 PM DEVELOPMENT ASSISTANT Sohan Rojas MD LAB BLOOD ORDERABLES Final Result [facility] [id number] [place] [address] documented in this encounter Visit Diagnoses Diagnosis Hypercholesterolemia Pure hypercholesterolemia History of prostate cancer Personal history of malignant neoplasm of prostate Prostate cancer (HCC) Malignant neoplasm of prostate documented in this encounter Care Teams Chief Growth Officer Relationship Specialty Start Date End Date Sohan Rojas MD [address] [address] PCP - General Family Medicine 07/10/22 Lamin Mcgraw MD [address] [place] [address] Consulting Physician Urology 07/27/22 documented as of this encounter
--- OUTSIDE RECORDS SUMMARY | 2024-08-07 02:26 | XMS_ITS | Encounter Summary ---
Author Organization [facility] Address [address] [place] [address] Care Team Providers Care Rigging Supervisor Name Role Phone Lamin Ricci MD Primary Care Provider [phone] Reason for Visit * Reason Onset Date Comments Appointment 06/05/2021 Encounter Details Date Type Department Care Team ([facility] st Contact Info) Description 06/05/2021 Telephone [facility] Family Medicine [address] [place] [address] Lamin Ricci MD [address] [place] [address] Appointment Social History Tobacco Use Types Packs/Day Years [...] staff should administer the PHQ-9) 0 05/14/2021 [facility] Occupat ional Health - [...] file Legal Sex Male 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 Gender Identity Male 03/24/2021 7:53 PM CDT Sexual Orientation Straight 03/24/2021 7: 53 PM CDT Occupation Industry Job Start Date Job End Date retired Not on file Not on file Not on file documented as of this encounter Miscellaneous Notes * Telephone Encounter - Jazzy Fink MA - 06/05/2021 2:46 PM CST lvm to schedule medicare physical OR INFORMATION SECURITY ANALYST documented in this encounter Plan of Treatment Not on file documented as of this encounter Visit Diagnoses Not on filedocumented in this encounter Care Teams Rigging Supervisor Relationship Specialty Start Date End Date Lamin Ricci MD PCP - General Family Medicine 10/07/18 07/09/22 documented as of this encounter
--- OUTSIDE RECORDS SUMMARY | 2024-08-07 02:26 | XMS_ITS | Encounter Summary ---
Author Organization [facility] Address [address] [place] [address] Care Team Providers Care Radiotelephone Operator Name Role Phone Lamin Ricci MD Primary Care Provider [phone] Reason for Visit * Reason Onset Date Comments Appointment 05/13/2021 Encounter Details Date Type Department Care Team ([facility] st Contact Info) Description 05/13/2021 Telephone [facility] Family Medicine [address] [place] [address] Lamin Ricci MD [address] [place] [address] Appointment Social History Tobacco Use Types Packs/Day [...] staff should administer the PHQ-9) 0 05/14/2021 [facility] of Occupat ional Health [...] on file Legal Sex Male 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 Ricci 05/14/2021 * Telephone Encounter - Jazzy Fink MA - 05/13/2021 9:03 AM CDT lvm that he needs an appointment for ear wax removal documented in this encounter Plan of Treatment Not on file documented as of this encounter Visit Diagnoses Not on filedocumented in this encounter Care Teams Radiotelephone Operator Relationship Specialty Start Date End Date Lamin Ricci MD PCP - General Family Medicine 10/07/18 07/09/22 documented as of this encounter
--- OUTSIDE RECORDS SUMMARY | 2024-08-07 02:26 | XMS_ITS | Encounter Summary ---
Author Organization [facility] Address [address] [place] [address] Care Team Providers Care Hog Raiser Name Role Phone Lamin Ricci MD Primary Care Provider [phone] Encounter Details Date Type Department Care Team (Late st Contact Info) Description 04/15/2022 Telephone [facility] Family Medicine [address] [place] [address] Lamin Ricci MD [address] [place] [address] [address] [place] [address] Social History Tobacco Use Types Packs/Day Years [...] and Family Twice a week 05/31/2019 Attends [employer] Services Never 05/31 Active Member of Clubs [...] staff should administer the PHQ-9) 0 06/19/2021 [facility] of Occupat ional [...] on file Legal Sex Male 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 Gender Identity Male 03/24/2021 7:53 PM CDT Sexual Orientation Straight 03/24/2021 7: 53 PM CDT Occupation Industry Job Start Date Job End Date retired Not on file Not on file Not on file documented as of this encounter Ordered Prescriptions Prescription Sig Dispense Quantity Refills Last Filled Start Date End Date fluticasone propionate (FLONASE) 50 mcg/actuation nasal sprayIndications:A cute non-recurrent maxillary sinusitis Administer 2 sprays into each nostril daily 3 each 4 04/15/2022 4 documented in this encounter Miscellaneous Notes * Telephone Encounter - Aaron Rodrigues MA - 04/15/2022 5:01 PM CDT Per v/o Dr. Ricci, flonase is being sent to Pharm. documented in this encounter Plan of Treatment Not on file documented as of this encounter Visit Diagnoses Diagnosis Acute non-recurrent maxillary sinusitis- Primary documented in this encounter Discontinued Medications Medication Sig Discontinue Reason Start Date End Da te mometasone (NASONEX) 50 mcg/actuation nasal spray Administer 2 sprays into each nostril 2 (two) times a day Formulary change 04/14/2022 04/15/2022 documented as of this encounter Care Teams Hog Raiser Relationship Specialty Start Date End Date Lamin Ricci MD PCP - General Family Medicine 10/07/18 07/09/22 documented as of this encounter
--- OUTSIDE RECORDS SUMMARY | 2024-08-07 02:26 | XMS_ITS | Encounter Summary ---
Author Organization [facility] Address [address] [place] [address] Care Team Providers Care Silo Man Name Role Phone Lamin Ricci MD Primary Care Provider [phone] Reason for Visit * Reason Onset Date Comments Request Call Back 10/08/2021 Encounter Details Date Type Department Care Team ([facility] st Contact Info) Description 10/08/2021 Telephone [facility] Family Medicine [address] [place] [address] Lamin Ricci MD [address] [place] [address] [address] [place] [address] Request Call Back Social History Tobacco Use Types Packs/Day Years [...] staff should administer the PHQ-9) 0 06/19/2021 [facility] of Occupat ional Health [...] on file Legal 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 Please call pt when decision is made. [phone] Dominga (pts daughter) documented in this encounter Plan of Treatment Not on file documented as of this encounter Visit Diagnoses Not on filedocumented in this encounter Care Teams Silo Man Relationship Specialty Start Date End Date Lamin Ricci MD PCP - General Family Medicine 10/07/18 07/09/22 documented as of this encounter
--- OUTSIDE RECORDS SUMMARY | 2024-08-07 02:26 | XMS_ITS | Encounter Summary ---
Author Organization [facility] Address [address] [place] [address] Care Team Providers Care Application Security Engineer Name Role Phone Lamin Ricci MD Primary Care Provider [phone] Reason for Visit * Reason Comments Dizziness Encounter Details Date Type Department Care Team ([facility] st Contact Info) Description 02/24/2021 9:30 AM CDT Office Visit [facility] Family Medicine [address] [place] [address] Lamin Ricci MD [address] [place] [address] [address] [place] [address] Lumbar back pain (Primary Dx); Hypercholesterolemia; Gastroesophageal reflux disease with esophagitis without hemorrhage; Benign prostatic hyperplasia without lower urinary tract symptoms; Slow transit constipation Social History Tobacco Use Types Packs/Day [...] and Family Twice a week 05/31/2019 Attends [employer] Services Never 05/31 Active Member of Clubs [...] staff should administer the PHQ-9) 0 06/03/2020 [facility] of Occupat ional Health - Occupational Stress [...] on file 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 Gender Identity Male 03/24/2021 7:53 PM CDT Sexual Orientation Straight 03/24/2021 7: 53 PM CDT Occupation Industry Job Start Date Job End Date retired Not on file Not on file Not on file documented as of this encounter Last Filed Vital Signs Vital Sign Reading Time Taken Comments Blood Pressure 140/82 02/24/2021 9:49 AM CDT Pulse 67 02/24/2021 9:49 AM CDT Temperature 36.4 ??C (97.5 ??F) 02/24/2021 9:49 AM CD T Respiratory Rate 16 02/24/2021 9:49 AM CDT Oxygen Saturation 98% 02/24/2021 9:49 AM CDT Inhaled Oxygen Concentration - - Weight 75.8 kg (167 lb) 02/24/2021 9:49 AM CDT Height 177.8 cm (5' 10 ) 02/24/2021 9:49 AM CDT Body Mass Index 23.96 02/24/2021 9:49 AM CDT documented in this encounter Progress Notes * Lamin Ricci MD - 02/24/2021 9:30 AM CDT Images from the original note were not included. Subjective/Objective Patient ID: Gulshan Johnston is a 80 y.o. male. Visit Date: 02/24/2021 Chief Complaint Dizziness HPI Returns to the office for repeat evaluation. States that he has been having sinus drainage and the lipids are under control The bph is udner control The lumbar back pain continues. The gerd is udner control and the constipatoin is stable. The dizziness is due to hte sinuses Review of Systems Constitutional: Negative for activity change. HENT: Negative for congestion. Eyes: Negative for visual disturbance. Respiratory: Negative for cough and chest tightness. Cardiovascular: Negative for chest pain and leg swelling. Gastrointestinal: Negative for abdominal pain, blood in stool, constipation, diarrhea and nausea. Genitourinary: Negative for difficulty urinating. Musculoskeletal: Negative for arthralgias, back pain and gait problem. Skin: Negative for rash. Neurological: Positive for dizziness. Negative for headaches. Psychiatric/Behavioral: Negative for sleep disturbance. The patient is not nervous/anxious. Physical Exam Vitals reviewed. Constitutional: General: He is not in acute distress. Appearance: He is well-developed. HENT: Head: Normocephalic. Comments: Nasal congesiton and cobblestoning in the pop Right Ear: External ear [...] Diagnoses and all orders for this visit: Lumbar back pain (M54.5) (Primary) Comments: conditon chroinc and at goal. continue hte pain meds. Hypercholesterolemia (E78.00) Comments: conditon chroinc and at goal continue hte lipitor Gastroesophageal reflux disease with esophagitis without hemorrhage (K21.00) Comments: condtion chronic nad at goal continue the prilosec Benign prostatic hyperplasia without lower urinary tract symptoms (N40.0) Comments: condition chronic and at goal continue he proscor and flomax. Slow transit constipation (K59.01) Comments: condiotn chronic and at gaol continue hte movantik Lamin Ricci MD documented in this encounter Plan of Treatment Not on file documented as of this encounter Visit Diagnoses Diagnosis Lumbar back pain- Primary Lumbago Hypercholesterolemia Pure hypercholesterolemia Gastroesophageal reflux disease with esophagitis without hemorrhage Benign prostatic hyperplasia without lower urinary tract symptoms Slow transit constipation documented in this encounter Discontinued Medications Medication Sig Discontinue Reason Start Date End Da te azithromycin (ZITHROMAX) 250 mg tabletIndications:Acute non-recurrent maxillary sinusitis Take 2 tabs (500 mg) by mouth today, than 1 daily for 4 days. Therapy completed 12/19/2020 02/24/2021 methylPREDNISolone (MEDROL DOSEPACK) 4 mg DosepackIndications:Acu te non-recurrent maxillary sinusitis Take as directed on package. Therapy completed 12/19/2020 02/24/2021 documented as of this encounter Care Teams Application Security Engineer Relationship Specialty Start Date End Date Lamin Ricci MD PCP - General Family Medicine 10/07/18 07/09/22 documented as of this encounter
--- OUTSIDE RECORDS SUMMARY | 2024-08-07 02:26 | XMS_ITS | Encounter Summary ---
Author Organization [facility] Address [address] [place] [address] Care Team Providers Care Waterproofer Helper Name Role Phone Lamin Ricci MD Primary Care Provider [phone] Encounter Details Date Type Department Care Team (Late st Contact Info) Description 09/20/2020 7:45 AM AOC DIRECTOR INTELLIGENCE OFFICER Immunization [address] [address] Covid, Vaccination Provider Encounter for vaccination (Primary Dx) Social History Tobacco Use Types [...] and Family Twice a week 05/31/2019 Attends [employer] Services Never 05/31 Active Member of Clubs or Organizations No 05/31/2019 Attends Club or Organization Meetings Never 05/31/2019 Marital Status 05/31/2019 AUDIT-C Answer Date Recorded Frequency of Alcohol Consumption Never 10/19/2018 Average Number of Drinks Not on file 019 Frequency of Binge Drinking Not on file 0409/2018 Overall Financial Resource Strain (CARDIA) Answe r Date Recorded Difficulty of Paying Living Expenses Not hard at all 05/31/2019 PHQ-2 Answer Date Recorded PHQ-2 Total Score (If total score is 3 or more points, staff should administer the PHQ-9) 0 06/03/2020 [facility] of Occupat ional [facility] - Occupational Stress Questionnaire Answer Date [...] on file Legal Sex Male 8:20 PM AOC DIRECTOR INTELLIGENCE OFFICER Gender Identity Male 03/24/2021 7:53 PM CDT Sexual Orientation Straight 03/24/2021 7: 53 PM CDT Occupation Industry Job Start Date Job End Date retired Not on file Not on file Not on file documented as of this encounter Plan of Treatment Not on file documented as of this encounter Visit Diagnoses Diagnosis Encounter for vaccination- Primary documented in this encounter Orders Immunization/Injection Count Last Ordered Date First Ordered Date PFIZER SARS-COV-2 VACCINE 1 09/20/2020 PFIZER SARS-COV-2 VACCINE 2ND DOSE APPT 1 0 09/20/2020 documented in this encounter Care Teams Waterproofer Helper Relationship Specialty Start Date End Date Lamin Ricci MD PCP - General Family Medicine 10/07/18 07/09/22 documented as of this encounter
--- OUTSIDE RECORDS SUMMARY | 2024-08-07 02:26 | XMS_ITS | Encounter Summary ---
Author Organization [facility] Address [address] [place] [address] Care Team Providers Care Bioinformatics Technician Name Role Phone Sohan Rojas MD Primary Care Provider [phone] Lamin Mcgraw MD Unavailable [phone] Reason for Visit * Reason Comments Medication Problem Patient has 4 medica tion he is not sure if he is supposed to be taking. He thinks he ran out and they were never filled. I have the medication pending and had Dr Rojas look at it he said that the medication was ok to fill. For the finasteride and tamsulosin I cannot find a prostate dx except for prostate cancer. Breo follow up Stated he is doing m uch better on the new medication Encounter Details Date Type Department Care Team (Late st Contact Info) Description 08/18/2022 3:30 PM TUBE ROOM SUPERVISOR Office Visit [facility] Medical [facility] at [address] [address] Lashanda Newell NP [address] [place] [address] [address] [place] [address] Memory changes (Primary Dx); Mild intermittent asthma without complication; Hypercholesterolemia; Gastroesophageal reflux disease without esophagitis; Prostate cancer (CMS/HCC) (HCC) Social History Tobacco Use Types Packs/Day [...] and Family Twice a week 05/31/2019 Attends [employer] Services Never 05/31 Active Member of Clubs [...] staff should administer the PHQ-9) 0 08/18/2022 [facility] of Occupat [...] on file Legal Sex Male 8:20 PM TUBE ROOM SUPERVISOR Gender Identity Male 03/24/2021 7:53 PM CDT Sexual Orientation Straight 03/24/2021 7: 53 PM CDT Occupation Industry Job Start Date Job End Date retired Not on file Not on file Not on file documented as of this encounter Last Filed Vital Signs Vital Sign Reading Time Taken Comments Blood Pressure 120/66 08/18/2022 3:27 PM TUBE ROOM SUPERVISOR Pulse 81 08/18/2022 3:27 PM TUBE ROOM SUPERVISOR Temperature - - Respiratory Rate 20 08/18/2022 3:27 PM TUBE ROOM SUPERVISOR Oxygen Saturation 98% 08/18/2022 3:27 PM TUBE ROOM SUPERVISOR Inhaled Oxygen Concentration - - Weight 73 kg (161 lb) 08/18/2022 3:27 PM TUBE ROOM SUPERVISOR Height 177.8 cm (5' 10 ) 08/18/2022 3:27 PM TUBE ROOM SUPERVISOR Body Mass Index 23.1 08/18/2022 3:27 PM TUBE ROOM SUPERVISOR documented in this encounter Patient Instructions * Patient Instructions* Lashanda Newell NP - 08/18/2022 3:30 PM TUBE ROOM SUPERVISOR Starting Namenda 5 mg twice daily Focus on crosswords, reading, sodoku, word searches, etc to keep the mind active. Labs ordered ROOM SUPERVISOR ROOM SUPERVISOR documented in this encounter Ordered Prescriptions Prescription Sig Dispense Quantity Refills Last Filled Start Date End Date memantine (Namenda) 5 mg tabletIndications: Moderate to Severe Alzheimer's Type Dementia Take 1 tablet (5 mg total) by mouth 2 (two) times a day 60 tablet 1 08/18/2022 3 finasteride (PROSCAR) 5 mg tabletIndications: Prostate cancer (HCC) Take 1 tablet (5 mg total) by mouth daily 90 tablet 1 08/18/2022 3 omeprazole (PriLOSEC) 20 mg capsuleIndications :Gastroesophageal reflux disease without esophagitis Take 1 capsule (20 mg total) by mouth daily 30 capsule 08/18/2022 3 atorvastatin (LIPITOR) 20 mg tabletIndications: Hypercholesterolem ia Take 1 tablet (20 mg total) by mouth daily 90 tablet 3 08/18/2022 3 tamsulosin (FLOMAX) 0.4 mg extended release capsule Take 1 capsule (0.4 mg total) by mouth daily 90 capsule 1 08/18/2022 3 documented in this encounter Progress Notes * Lashanda Newell NP - 08/18/2022 3:30 PM CST Images from the original note were not included. Patient ID: Gulshan Johnston is a 82 y.o. male. Assessment/Plan Diagnoses and all orders for this visit: Memory changes (Primary) Comments: SLUMS 15 in office Education and discussion of med trial/further eval w/ neuro Will trial Namenda, labs, and f/u for re-eval in 4 weeks Orders: - TSH reflex to free T4; Future - Vitamin B12; Future - Folate; Future Mild intermittent asthma without complication Assessment & Plan: Symptoms have improved on the daily Breo Ellipta Has not had to use his prn inhaler since starting the maintenance. Hypercholesterolemia Comments: condition chronic stable. refill meds. Orders: - atorvastatin (LIPITOR) 20 mg tablet; Take 1 tablet (20 mg total) by mouth daily Gastroesophageal reflux disease without esophagitis - omeprazole (PriLOSEC) 20 mg capsule; Take 1 capsule (20 mg total) by mouth daily Prostate cancer (CMS/HCC) (HCC) Assessment & Plan: Patient making follow up with his Urologist. Medication refills provided. Orders: - finasteride (PROSCAR) 5 mg tablet; Take 1 tablet (5 mg total) by mouth daily Other orders - tamsulosin (FLOMAX) 0.4 mg extended release capsule; Take 1 capsule (0.4 mg total) by mouth daily - memantine (Namenda) 5 mg tablet; Take 1 tablet (5 mg total) by mouth 2 (two) times a day Follow up 1 Month Chief Complaint Medication Problem (Patient has 4 medication he is not sure if he is supposed to be taking. He thinks he ran out and they were never filled. I have the medication pending and had Dr Rojas look at it he said that the medication was ok to fill. For the finasteride and tamsulosin I cannot find a prostate dx except for prostate cancer.) and Breo follow up (Stated he is doing much better on the new medication ) Patient is here for memory follow up and SLUMS testing. Patient is accompanied by daughter today. They note a decrease in memory over the past 1 year and there is family history of Alzheimer's present. Daughter notes that her father will have episodes of getting lost when driving to daughter's house a couple times and he will call his daughter confused about where he should go and be but it turnsout the patient is at his home. Will also make statements that do not make sense/apply to his present day living. Patient also is in need of medication refills of Proscar and Flomax, he has a urologist he is overdue for follow up. Patient was also started on daily Breo inhaler for better control of his asthma and has noted greatimprovement, no longer needing the prn inhaler. Review of Systems Respiratory: Negative for shortness of breath. Cardiovascular: Negative for chest pain. Psychiatric/Behavioral: Positive for confusion. Negative for suicidal ideas. BP 120/66 (BP Location: Left arm, Patient Position: Sitting) Pulse 81 Resp 20 Ht 177.8 cm (5'10 ) Wt 73 kg (161 lb) SpO2 98% BMI 23.10 kg/m?? Physical Exam Constitutional: Appearance: Normal appearance. HENT: Head: Normocephalic. Right Ear: External ear normal. Left Ear: External ear normal. Eyes: Extraocular Movements: Extraocular movements intact. Cardiovascular: Rate and Rhythm: Normal rate and regular rhythm. Pulmonary: Effort: Pulmonary effort is normal. Breath sounds: Normal breath sounds. Skin: General: Skin is warm and dry. Neurological: Mental Status: He is alert. He is confused. Psychiatric: Mood and Affect: Mood normal. Behavior: Behavior normal. Lashanda Newell NP Cosigned by Sohan Rojas MD at 08/19/2022 3:36 PM TUBE ROOM SUPERVISOR ROOM SUPERVISOR ROOM SUPERVISOR documented in this encounter Miscellaneous Notes * Assessment & Plan Note - Lashanda Newell NP - 08/19/2022 2:05 PM CSTAssociated Problem(s): Asthma Symptoms have improved on the daily Breo Ellipta Has not had to use his prn inhaler since starting the maintenance. ROOM SUPERVISOR * Assessment & Plan Note - Lashanda Newell NP - 08/19/2022 2:04 PM CSTAssociated Problem(s): Prostate cancer (HCC) Patient making follow up with his Urologist. Medication refills provided. ROOM SUPERVISOR documented in this encounter Plan of Treatment Not on file documented as of this encounter Visit Diagnoses Diagnosis Memory changes- Primary Mild intermittent asthma without complication Hypercholesterolemia Pure hypercholesterolemia Gastroesophageal reflux disease without esophagitis Esophageal reflux Prostate cancer (HCC) Malignant neoplasm of prostate documented in this encounter Discontinued Medications Medication Sig Discontinue Reason Start Date End Da te tamsulosin (FLOMAX) 0.4 mg extended release capsule Take 0.4 mg by mouth daily Reorder 08/19/2018 08/18/2022 finasteride (PROSCAR) 5 mg tablet Take 1 tablet by mouth daily Reorder 10/06/2018 08/18/2022 atorvastatin (LIPITOR) 20 mg tabletIndications:Hyperc holesterolemia Take 1 tablet (20 mg total) by mouth daily Reorder 10/13/2021 08/18/2022 omeprazole (PriLOSEC) 20 mg capsuleIndications:Gastr oesophageal reflux disease without esophagitis Take 1 capsule (20 mg total) by mouth daily Reorder 04/17/2022 08/18/2022 documented as of this encounter Historical Medications * This list may reflect changes made after this encounter. Medication Sig Dispense Quantity Refills Last Filled Start D ate End Date mometasone 50 mcg/actuation HFA aerosol inhaler Inhale 4 added in this encounter Care Teams Bioinformatics Technician Relationship Specialty Start Date End Date Sohan Rojas MD [address] [facility] [address] [place] [address] PCP - General Family Medicine 07/10/22 Lamin Mcgraw MD [address] [place] [address] Consulting Physician Urology 07/27/22 documented as of this encounter
--- OUTSIDE RECORDS SUMMARY | 2024-08-07 02:26 | XMS_ITS | Encounter Summary ---
Author Organization [facility] Address [address] [place] [address] Care Team Providers Care Cocktail Lounge Manager Name Role Phone Lamin Ricci MD Primary Care Provider [phone] Encounter Details Date Type Department Care Team (Late st Contact Info) Description 10/15/2020 Telephone [facility] Family Medicine [address] [place] [address] Lamin Ricci MD [address] [place] [address] [address] [place] [address] Social History Tobacco Use Types Packs/Day Years [...] staff should administer the PHQ-9) 0 06/03/2020 [facility] of Occupat ional Health - Occupational Stress [...] on file Legal Sex Male 8:20 PM BIOINFORMATICS PROGRAMMER Gender Identity Male 03/24/2021 7:53 PM CDT Sexual Orientation Straight 03/24/2021 7: 53 PM CDT Occupation Industry Job Start Date Job End Date retired Not on file Not on file Not on file documented as of this encounter Miscellaneous Notes * Telephone Encounter - Sierra Fraire RN - 10/16/2020 5:02 PM CDT Pt getting formulary * Telephone Encounter - Sierra Fraire RN - 10/16/2020 2:27 PM CDT Lm for phar * Telephone Encounter - Sierra Fraire RN - 10/15/2020 10:07 AM CDT [place], Call phar, Has [employer] documented in this encounter Plan of Treatment Not on file documented as of this encounter Visit Diagnoses Not on filedocumented in this encounter Care Teams Cocktail Lounge Manager Relationship Specialty Start Date End Date Lamin Ricci MD PCP - General Family Medicine 10/07/18 07/09/22 documented as of this encounter
--- OUTSIDE RECORDS SUMMARY | 2024-08-07 02:26 | XMS_ITS | Encounter Summary ---
Author Organization [facility] Address [address] [place] [address] Care Team Providers Care Claims Sorter Name Role Phone Lamin Ricci MD Primary Care Provider [phone] Reason for Visit * Reason Comments Follow-up Hypercholesteremia Encounter Details Date Type Department Care Team (Late st Contact Info) Description 09/04/2021 9:15 AM ASSOCIATE PROFESSOR OF LITERACY Office Visit [facility] Family Medicine [address] [place] [address] Lamin Ricci MD [facility] [address] [place] [address] [address] [place] [address] Benign prostatic hyperplasia without lower urinary tract symptoms (Primary Dx); Gastroesophageal reflux disease with esophagitis without hemorrhage; Lumbar back pain; Hypertriglyceridemia Social History Tobacco Use Types Packs/Day Years [...] and Family Twice a week 05/31/2019 Attends [employer] Services Never 05/31 Active Member of Clubs [...] staff should administer the PHQ-9) 0 06/19/2021 [facility] of Occupat ional Health [...] on file Legal Sex Male 8:20 PM ASSOCIATE PROFESSOR OF LITERACY Gender Identity Male 03/24/2021 7:53 PM CDT Sexual Orientation Straight 03/24/2021 7: 53 PM CDT Occupation Industry Job Start Date Job End Date retired Not on file Not on file Not on file documented as of this encounter Last Filed Vital Signs Vital Sign Reading Time Taken Comments Blood Pressure 130/80 09/04/2021 10:19 AM ASSOCIATE PROFESSOR OF LITERACY Pulse 78 09/04/2021 10:19 AM ASSOCIATE PROFESSOR OF LITERACY Temperature 36.9 ??C (98.5 ??F) 09/04/2021 10:[address] Respiratory Rate 16 09/04/2021 10:19 AM ASSOCIATE PROFESSOR OF LITERACY Oxygen Saturation 97% 09/04/2021 10:19 AM ASSOCIATE PROFESSOR OF LITERACY Inhaled Oxygen Concentration - - Weight 76.7 kg (169 lb) 09/04/2021 10:19 AM ASSOCIATE PROFESSOR OF LITERACY Height 177.8 cm (5' 10 ) 09/04/2021 10:19 AM ASSOCIATE PROFESSOR OF LITERACY Body Mass Index 24.25 09/04/2021 10:19 AM ASSOCIATE PROFESSOR OF LITERACY documented in this encounter Progress Notes * Lamin Ricci MD - 09/04/2021 9:15 AM CST Images from the original note were not included. Subjective/Objective Patient ID: Gulshan Johnston is a 81 y.o. male. Visit Date: 09/04/2021 Chief Complaint Follow-up (Hypercholesteremia/) HPI Returns to the office for repeat evaluation. States that he is doing good the pain continues. The bph is udner control and the lipids are under control The gerd is under control the bph is under control Review of Systems Constitutional: Negative for activity [...] Diagnoses and all orders for this visit: Benign prostatic hyperplasia without lower urinary tract symptoms (N40.0) (Primary) Comments: conditon chfonic and at goa continue the flomoax nad proscar Gastroesophageal reflux disease with esophagitis without hemorrhage (K21.00) Comments: conditon chronc and at goal ocnitnue the prilosec. Lumbar back pain (M54.50) Comments: conditoin chronic and at goal continue the pain meds. Hypertriglyceridemia (E78.1) Comments: conditon chroinc adn at goal ocnitnue hte lipitor Lamin Ricci MD CIATE PROFESSOR OF LITERACY documented in this encounter Plan of Treatment Not on file documented as of this encounter Visit Diagnoses Diagnosis Benign prostatic hyperplasia without lower urinary tract symptoms- Primary Gastroesophageal reflux disease with esophagitis without hemorrhage Lumbar back pain Lumbago Hypertriglyceridemia Pure hyperglyceridemia documented in this encounter Care Teams Claims Sorter Relationship Specialty Start Date End Date Lamin Ricci MD PCP - General Family Medicine 10/07/18 07/09/22 documented as of this encounter
--- OUTSIDE RECORDS SUMMARY | 2024-08-07 02:26 | XMS_ITS | Encounter Summary ---
Author Organization [facility] Address [address] [place] [address] Care Team Providers Care Ice Cream Vendor Name Role Phone Lamin Ricci MD Primary Care Provider [phone] Reason for Visit * Reason Comments Back Pain chronic lumbar backp ain Encounter Details Date Type Department Care Team (Latest Contact Info) Description 04/23/2021 8:00 AM CDT Office Visit [facility] Family Medicine [address] [place] [address] Lamin Ricci MD [address] [place] [id number] Hypercholesterolemia (Primary Dx); Chronic bilateral low back pain with bilateral sciatica; Mild intermittent asthma, unspecified whether complicated; Gastroesophageal reflux disease with esophagitis without hemorrhage; [...] and Family Twice a week 05/31/2019 Attends Judaism Services Never 05/31 Active Member of Clubs [...] on file Legal Sex Male 8:20 PM HIV NURSE Gender Identity Male 03/24/2021 7:53 PM CDT Sexual Orientation Straight 03/24/2021 7: 53 PM CDT Occupation Industry Job Start Date Job End Date retired Not on file Not on file Not on file documented as of this encounter Last Filed Vital Signs Vital Sign Reading Time Taken Comments Blood Pressure 100/50 04/23/2021 8:05 AM CDT Pulse 74 04/23/2021 8:05 AM CDT Temperature 36.6 ??C (97.8 ??F) 04/23/2021 8:05 AM CD T Respiratory Rate 16 04/23/2021 8:05 AM CDT Oxygen Saturation - - Inhaled Oxygen Concentration - - Weight - - Height - - Body Mass Index - - documented in this encounter Progress Notes * Lamin Ricci MD - 04/23/2021 8:00 AM CDT Images from the original note were not included. Subjective/Objective Patient ID: Gulshan Johnston is a 81 y.o. male. Visit Date: 04/23/2021 Chief Complaint Back Pain (chronic lumbar backpain) HPI Returns to the office for repeat evaluation. States that the back pain is under control and the meds are working. The copd is under control and the bph is stable The constipatoin is under control andthe gerd is under control. Review of Systems [...] back: Neck supple. Comments: Lumbar back pain to palpatoin and rom Skin: General: Skin is warm and dry. Capillary Refill: Capillary refill takes less than 2 seconds. Neurological: Mental Status: He is alert and oriented to person, place, and time. Psychiatric: Behavior: Behavior normal. Assessment/Plan Diagnoses and all orders for this visit: Hypercholesterolemia (E78.00) (Primary) Comments: conditon chroinc nad at goal continue the lipitor Chronic bilateral low back pain with bilateral sciatica (M54.42, M54.41, G89.29) Comments: conditoin choinc and at goal refill the pain meds. Mild intermittent asthma, unspecified whether complicated (J45.20) Comments: conditon chonic adn at goal continue the albuterol prn Gastroesophageal reflux disease with esophagitis without hemorrhage (K21.00) Comments: condition chronic and at goal continue the prilosec Benign prostatic hyperplasia without lower urinary tract symptoms (N40.0) Comments: condition chroinc and at goal continue the flomax adn the proscar Lamin Ricci MD documented in this encounter Plan of Treatment Not on file documented as of this encounter Visit Diagnoses Diagnosis Hypercholesterolemia- Primary Pure hypercholesterolemia Chronic bilateral low back pain with bilateral sciatica Mild intermittent asthma, unspecified whether complicated Gastroesophageal reflux disease with esophagitis without hemorrhage Benign prostatic hyperplasia without lower urinary tract symptoms documented in this encounter Care Teams Ice Cream Vendor Relationship Specialty Start Date End Date Lamin Ricci MD PCP - General Family Medicine 10/07/18 07/09/22 documented as of this encounter
--- OUTSIDE RECORDS SUMMARY | 2024-08-07 02:26 | XMS_ITS | Encounter Summary ---
Author Organization [facility] Address [address] [place] [address] Care Team Providers Care Gravel Inspector Name Role Phone Lamin Ricci MD Primary Care Provider [phone] Reason for Visit * Reason Comments Follow-up reg f/u, no issues Encounter Details Date Type Department Care Team ([facility] st Contact Info) Description 07/23/2021 7:30 AM EDITOR DICTIONARY Office Visit [facility] Family Medicine [address] [place] [address] Lamin Ricci MD [address] [place] [address] [address] [place] [address] Lumbar back pain (Primary Dx); Gastroesophageal reflux disease with esophagitis without hemorrhage; Mild intermittent asthma without complication; Benign prostatic hyperplasia without lower urinary tract symptoms; Encounter for screening colonoscopy Social History Tobacco Use Types Packs/Day Years [...] should administer the PHQ-9) 0 06/19/2021 [facility] - Occupational [...] on file Legal Sex Male 8:20 PM EDITOR DICTIONARY Gender Identity Male 03/24/2021 7:53 PM CDT Sexual Orientation Straight 03/24/2021 7: 53 PM CDT Occupation Industry Job Start Date Job End Date retired Not on file Not on file Not on file documented as of this encounter Last Filed Vital Signs Vital Sign Reading Time Taken Comments Blood Pressure 128/60 07/23/2021 7:41 AM EDITOR DICTIONARY Pulse 72 07/23/2021 7:41 AM EDITOR DICTIONARY Temperature 36.4 ??C (97.5 ??F) 07/23/2021 7:41 AM CS T Respiratory Rate 16 07/23/2021 7:41 AM EDITOR DICTIONARY Oxygen Saturation - - Inhaled Oxygen Concentration - - Weight 76.7 kg (169 lb) 07/23/2021 7:41 AM EDITOR DICTIONARY Height - - Body Mass Index 24.25 06/19/2021 1:23 PM EDITOR DICTIONARY documented in this encounter Progress Notes * Lmain Ricci MD - 07/23/2021 7:30 AM CST Images from the original note were not included. Subjective/Objective Patient ID: Gulshan Johnston is a 81 y.o. male. Visit Date: 07/23/2021 Chief Complaint Follow-up (reg f/u, no issues) HPI Returns to the office for repeat evaluation. States that he Is doing good and the meds are working.hte asthma is under control The lumbar back pain is stable and the bph is under control. Taking hismeds as directed. The gerd is stable. The constiaptoin is under control and is taking his meds as directed. Needs colonoscopy. Review of Systems Constitutional: Negative for activity [...] orders for this visit: Lumbar back pain (M54.50) (Primary) Comments: condiotn chroinc and at goal continue the oxycontin Gastroesophageal reflux disease with esophagitis without hemorrhage (K21.00) Comments: condition chroinc and at ogal contiue hte prilosec Mild intermittent asthma without complication (J45.20) Comments: conditon chroinc and at goal continue the inhalers. Benign prostatic hyperplasia without lower urinary tract symptoms (N40.0) Comments: conditon chroinc and at goal continue wallace flomax and hte proscar Encounter for screening colonoscopy (Z12.11) Comments: refer to gi Lamin Ricci MD OR DICTIONARY documented in this encounter Plan of Treatment Not on file documented as of this encounter Visit Diagnoses Diagnosis Lumbar back pain- Primary Lumbago Gastroesophageal reflux disease with esophagitis without hemorrhage Mild intermittent asthma without complication Benign prostatic hyperplasia without lower urinary tract symptoms Encounter for screening colonoscopy documented in this encounter Care Teams Gravel Inspector Relationship Specialty Start Date End Date Lamin Ricci MD PCP - General Family Medicine 10/07/18 07/09/22 documented as of this encounter
--- OUTSIDE RECORDS SUMMARY | 2024-08-07 02:26 | XMS_ITS | Encounter Summary ---
Author Organization [facility] Address [address] [place] [address] Care Team Providers Care Setter Automatic Spinning Lathe Name Role Phone Lamin Ricci MD Primary Care Provider [phone] Reason for Visit * Reason Comments Medicare Wellness Encounter Details Date Type Department Care Team (Late st Contact Info) Description 06/19/2021 1:15 PM EMOTIONAL DISABILITIES TEACHER Office Visit [facility] Family Medicine [address] [place] [address] Lamin Ricci MD [address] [place] [address] Encounter for subsequent annual wellness visit (AWV) in Medicare patient (Primary Dx); Mild intermittent asthma without complication; Degenerative lumbar spinal stenosis; Gastroesophageal reflux disease with esophagitis without hemorrhage; Elevated serum cholesterol Social History Tobacco Use Types Packs/Day Years [...] staff should administer the PHQ-9) 0 06/19/2021 [facility] [...] on file Legal Sex Male 8:20 PM EMOTIONAL DISABILITIES TEACHER Gender Identity Male 03/24/2021 7:53 PM CDT Sexual Orientation Straight 03/24/2021 7: 53 PM CDT Occupation Industry Job Start Date Job End Date retired Not on file Not on file Not on file documented as of this encounter Last Filed Vital Signs Vital Sign Reading Time Taken Comments Blood Pressure 110/88 06/19/2021 1:23 PM EMOTIONAL DISABILITIES TEACHER Pulse 78 06/19/2021 1:23 PM EMOTIONAL DISABILITIES TEACHER Temperature 36.7 ??C (98 ??F) 06/19/2021 1:23 PM EMOTIONAL DISABILITIES TEACHER Respiratory Rate 18 06/19/2021 1:23 PM EMOTIONAL DISABILITIES TEACHER Oxygen Saturation - - Inhaled Oxygen Concentration - - Weight 75.8 kg (167 lb) 06/19/2021 1:23 PM EMOTIONAL DISABILITIES TEACHER Height 177.8 cm (5' 10 ) 06/19/2021 1:23 PM EMOTIONAL DISABILITIES TEACHER Body Mass Index 23.96 06/19/2021 1:23 PM EMOTIONAL DISABILITIES TEACHER documented in this encounter Progress Notes * Lamin Ricci MD - 06/19/2021 1:15 PM CST Images from the original note were not included. MEDICARE/MANAGED CARE ANNUAL WELLNESS VISIT Patient Name: Gulshan Johnston Date Of : 1940 Date Of Service: @DATEOFSERStitch FixE@ Medicare Health Risk Assessment Basic Information In general, would you say your health is: Good Do you have an advance directive, such as a living will or durable power of president?: Yes Do you have trouble hearing the television or radio when other do not?: No Do you have to strain or struggle to hear/understand conversations?: No Have you experienced any of the following problems currently or recently? Eating: No Grooming: No Bathing: No Walking: No Using the toilet: No Memory problems: No Difficulty speaking: No Have you experienced any of the following problems currently or recently? Laundry and/or housekeeping: No Handling Money: No Shopping: No Food preparation: No Transportation: No Taking and/or getting your own medications: No HPI: Returns to the office for sub medicare physical Continues to have the chroinc lumbar back pain hte lipids are under control. The gerd and the insomjnia is under control and he is taking his meds as directed. Reviewed the labs. ROS Review of Systems Constitutional: Negative for appetite change and fever. HENT: Negative for ear pain, rhinorrhea and trouble swallowing. Eyes: Negative for pain and visual disturbance. Respiratory: Negative for cough, chest tightness and shortness of breath. Cardiovascular: Negative for chest pain and leg swelling. Gastrointestinal: Negative for abdominal pain, blood in stool, diarrhea, nausea and vomiting. Endocrine: Negative for cold intolerance and heat intolerance. Genitourinary: Negative for difficulty urinating, dysuria and frequency. Musculoskeletal: Positive for back pain. Negative for arthralgias and myalgias. Skin: Negative for color change and rash. Allergic/Immunologic: Negative for food allergies. Neurological: Negative for dizziness, syncope, weakness, light-headedness and headaches. Hematological: Does not bruise/bleed easily. Psychiatric/Behavioral: Negative for confusion, hallucinations and suicidal ideas. The patient is not nervous/anxious. Problem List, Past Medical and Surgical History: Patient Active Problem List Diagnosis ??? Hypercholesterolemia ??? Osteoarthritis ??? Rosacea ??? Bronchial asthma ??? Gastroesophageal reflux disease ??? Diffuse cervicobrachial syndrome ??? Lumbago ??? Degenerative lumbar spinal stenosis ??? Chronic pain ??? Cervical radiculopathy ??? Anemia ??? Insomnia, unspecified ??? Intrinsic eczema ??? Prostate cancer (CMS/HCC) (HCC) ??? Pure hypercholesterolemia ??? Lumbar back pain ??? Primary osteoarthritis of left shoulder ??? Dyspnea, unspecified ??? Acute sinusitis ??? Hammer toe ??? Onychomycosis of toenail ??? Pain in toe ??? Paronychia of toe of right foot ??? Sleep disorder ??? Asthma ??? Arthritis Past Medical History: Diagnosis Date ??? GERD (gastroesophageal reflux disease) ??? Heart disease ??? Hyperlipidemia ??? Insomnia ??? Osteoporosis ??? Personal history of other diseases of the respiratory system Personal history of asthma - (Added by TW Conv) ??? Sleep difficulties Past Surgical History: Procedure Laterality Date ??? FOOT SURGERY Foot Surgery - (Added by TW Conv) ??? LUMBAR DISC SURGERY Spinal Diskectomy Lumbar - (Added by TW Conv) ? ? PA REMOVAL OF TONSILS,<12 Y/O Tonsillectomy - (Added by TW Conv) ??? PROSTATE CANCER GENE 3 (PCA3) Family History: Family History Problem Relation Age of Onset ??? Hypertension Other Hypertension - (Added by TW Conv) ??? Stroke Other Stroke Syndrome - (Added by TW Conv) ??? Tuberculosis Mother Family history of tuberculosis - (Added by TW Conv) ??? No Known Problems Father ??? No Known Problems Daughter ??? No Known Problems Son Social History: Social History Socioeconomic History ??? Marital status: Spouse name: Not on file ??? Number of children: 2 ??? Years of education: 12 ??? Highest education level: High school graduate Occupational History ??? Occupation: retired Tobacco Use ??? Smoking status: Former Smoker Types: Pipe Quit date: 11/28/1979 Years since quittin.5 ??? Smokeless tobacco: Never Used Vaping Use ??? Vaping Use: Never used Substance and Sexual Activity ??? Alcohol use: Not Currently ??? Drug use: Never ??? Sexual activity: Defer Other Topics Concern ??? Not on file Social History Narrative Marital History - Currently : (Added by TW Conv) Occupation: Retired (Added by TW Conv) Being A Social Drinker : (Added by TW Conv) Social Determinants of Health Financial Resource Strain: Not on file Food Insecurity: Not on file Transportation Needs: Not on file Physical Activity: Not on file Stress: Not on file Social Connections: Not on file Intimate Partner Violence: Not on file Housing Stability: Not on file Allergies: Allergies Allergen Reactions ??? Other Sneezing Seasonal allergies Medications: Current Outpatient Medications: ??? albuterol HFA (Ventolin HFA) 90 mcg/actuation inhaler, Inhale 2 puffs every 4 (four) hours as needed for wheezing, Disp: 18 g, Rfl: 7 ??? aspirin-calcium carbonate 81 mg-300 mg calcium(777 mg) tablet, Take 81 mg by mouth daily , Disp: , Rfl: ??? atorvastatin (LIPITOR) 20 mg tablet, Take 1 tablet (20 mg total) by mouth daily, Disp: 90 tablet, Rfl: 3 ??? emebbuq-aaauvfqlx-kdbm 333-133-5 mg tablet, Take 1,200 mg by mouth daily , Disp: , Rfl: ??? cholecalciferol (VITAMIN D-3) 1,000 unit capsule, Take 1,200 Units by mouth daily , Disp: , Rfl: ??? cranberry extract 200 mg capsule, Take 2 capsules by mouth 3 (three) times a day , Disp: , Rfl: ??? diclofenac DR (VOLTAREN) 75 mg EC tablet, Take 1 tablet (75 mg total) by mouth 2 (two) times a day, Disp: 180 tablet, Rfl: 3 ??? finasteride (PROSCAR) 5 mg tablet, Take 1 tablet by mouth daily , Disp: , Rfl: ??? lecithin 1,200 mg capsule, Take 1 capsule by mouth 2 (two) times a day, Disp: , Rfl: ??? mometasone (NASONEX) 50 mcg/actuation nasal spray, Administer 2 sprays into each nostril 2 (two) times a day, Disp: 17 g, Rfl: 5 ??? naloxegoL (MOVANTIK) 25 mg tablet, Take 1 tablet (25 mg total) by mouth daily, Disp: 90 tablet,Rfl: 3 ??? omega 4-gkr-nxs-fish oil (FISH OIL) 360-1,200 mg capsule,delayed release(DR/EC), Take 1 capsuleby mouth daily , Disp: , Rfl: ??? omeprazole (PriLOSEC) 20 mg capsule, TAKE 1 CAPSULE BY MOUTH EVERY DAY, Disp: 90 capsule, Rfl: 3 ??? oxyCODONE-acetaminophen (PERCOCET) 5-325 mg per tablet, Take 1 tablet by mouth every 6 (six) hours as needed for pain Do not exceed 6 tablets per day., Disp: 90 tablet, Rfl: 0 ??? peg 400-propylene glycol (SYSTANE) 0.4-0.3 % ophthalmic solution, Administer 1 drop into both eyes as needed, Disp: , Rfl: ??? phenylephrine (RENETTA-SYNEPHRINE) 1 % spray,non-aerosol, 2-3 sprays every 4 (four) hours as needed, Disp: , Rfl: ??? selenium 200 mcg tablet, Take 1 tablet by mouth daily , Disp: , Rfl: ??? tamsulosin (FLOMAX) 0.4 mg extended release capsule, Take 0.4 mg by mouth daily , Disp: , Rfl: ??? triamcinolone (KENALOG) 0.1 % cream, 1 application 2 (two) times a day, Disp: , Rfl: ??? vitamin b complex (Vitamins B Complex) tablet, Take 1 tablet by mouth daily , Disp: , Rfl: ??? vitamin E (AQUASOL E) 1,000 unit capsule, Take 5,000 Units by mouth daily , Disp: , Rfl: Current Facility-Administered Medications: ??? cefTRIAXone (ROCEPHIN) 350 mg/mL intramuscular injection 1,000 mg, 1,000 mg, intramuscular, Q24H [facility] James P., MD, 1,000 mg at 09/17/20 0955 Depression Screen: PHQ Screening Over the last 2 weeks, how often have you been bothered by any of the following problems? Little Interest or Pleasure in Doing Things: Not at all Feeling Down, Depressed, or Hopeless: Not at all PHQ-2 Total Score (If total score is 3 or more points, staff should administer the PHQ-9): 0 Over the past 2 weeks, how often have you been bothered by any of the following problems? Little Interest or Pleasure in Doing Things: Not at all Feeling Down, Depressed, or Hopeless: Not at all PHQ-2 Total Score (If total score is 3 or more points, staff should administer the PHQ-9): 0 Vitals: Vitals BP 110/88 Pulse 78 Temp 36.7 ??C (98 ??F) Resp 18 Ht 177.8 cm (5' 10 ) Wt 75.8 kg (167 lb) BMI 23.96 kg/m?? Body mass index is 23.96 kg/m??. Hearing and Vision Screening: No exam data present Exam: Physical Exam Vitals reviewed. Constitutional: General: He [...] Neck supple. Comments: Lumbar back pain to palpation and rom Skin: General: Skin is warm and dry. Capillary Refill: Capillary refill takes less than 2 seconds. Neurological: Mental Status: He is alert and oriented to person, place, and time. Psychiatric: Behavior: Behavior normal. Care Team Providers: Patient Care Team: Lamin Ricci MD as PCP - General (Family Medicine) Primary Pharmacy/DME suppliers: [facility]/pharmacy #[id number] - [place], [place] - [address] [place] [address] Detection of Cognitive Impairment: The patient does not have cognitive impairment based on direct observation, discussion with patientor family, or review of medical records. Health Maintenance: Health Maintenance Topics with due status: Overdue Topic Date Due Pneumococcal (PCV13 & PPSV23) 65+ yrs 07/27/2020 Health Maintenance Topics with due status: Due On Topic Date Due Regular Well Visit/Exam 06/03/2021 Health Maintenance Topics with due status: Not Due Topic Last Completion Date DTaP/Tdap/Td Vaccine 12/15/2015 Fall Risk Assessment 06/19/2021 Depression Screening-PHQ 06/19/2021 Health Maintenance Topics with due status: Completed Topic Last Completion Date Zoster Vaccines 04/08/2020 Covid-19 Vaccine 06/05/2021 Influenza Vaccine 06/05/2021 Counseling and Referral of Preventative Services: Lifestyle Recommendations Increase Physical Activity, Reduce Weight and Improve Diet Advanced Directive Durable Power of Scaffold Builder: Yes Living Will: Yes Assessment and Plan: Diagnoses and all orders for this visit: Encounter for subsequent annual wellness visit (AWV) in Medicare patient (Primary) Comments: labs reviewed Mild intermittent asthma without complication Comments: conditon chroinc adn at goal continue the inhaler Degenerative lumbar spinal stenosis Comments: condiotn chroinc and at goal contineu the pain meds Gastroesophageal reflux disease with esophagitis without hemorrhage Comments: condition chorinc and a goal contiine the pirlsoec. Elevated serum cholesterol Comments: conditon chornic and at goal continue hte lipitor Patient here for annual Medicare wellness visit [...] update and summary of today's office visit. Lamin Ricci MD IONAL DISABILITIES TEACHER documented in this encounter Plan of Treatment Not on file documented as of this encounter Visit Diagnoses Diagnosis Encounter for subsequent annual wellness visit (AWV) in Medicare patient- Primary Mild intermittent asthma without complication Degenerative lumbar spinal stenosis Spinal stenosis of lumbar region Gastroesophageal reflux disease with esophagitis without hemorrhage Elevated serum cholesterol documented in this encounter Care Teams Setter Automatic Spinning Lathe Relationship Specialty Start Date End Date Lamni Ricci MD PCP - General Family Medicine 10/07/18 07/09/22 documented as of this encounter
--- OUTSIDE RECORDS SUMMARY | 2024-08-07 02:27 | XMS_ITS | Encounter Summary ---
Author Organization [facility] Address [address] [place] [address] Care Team Providers Care Asset Recovery Specialist Name Role Phone Lamin Ricci MD Primary Care Provider [phone] Reason for Visit * Reason Comments Med Refill Encounter Details Date Type Department Care Team ([facility] st Contact Info) Description 05/01/2020 1:15 PM CDT Office Visit [facility] Family Medicine [address] [place] [address] Lamin Ricci MD [address] [place] [address] [address] [place] [address] Degenerative lumbar spinal stenosis (Primary Dx); Gastroesophageal reflux disease with esophagitis without hemorrhage; Hypercholesterolemia; Primary insomnia; Benign prostatic hyperplasia without lower urinary tract [...] all 05/31/2019 PHQ-2 Answer Date Recorded PHQ-2 Score 0 03/09/2019 [facility] Occupat ional [facility] - Occupational Stress [...] on file Legal Sex Male 8:20 PM SHOPPER Gender Identity Male 03/24/2021 7:53 PM CDT Sexual Orientation Straight 03/24/2021 7: 53 PM CDT Occupation Industry Job Start Date Job End Date retired Not on file Not on file Not on file documented as of this encounter Last Filed Vital Signs Vital Sign Reading Time Taken Comments Blood Pressure 120/62 05/01/2020 1:45 PM CDT Pulse 75 05/01/2020 1:45 PM CDT Temperature 37 ??C (98.6 ??F) 05/01/2020 1:45 PM CDT Respiratory Rate 16 05/01/2020 1:45 PM CDT Oxygen Saturation 97% 05/01/2020 1:45 PM CDT Inhaled Oxygen Concentration - - Weight 76.5 kg (168 lb 9.6 oz) 05/01/2020 1:45 P M CDT Height 177.8 cm (5' 10 ) 05/01/2020 1:45 PM CDT Body Mass Index 24.19 05/01/2020 1:45 PM CDT documented in this encounter Ordered Prescriptions Prescription Sig Dispense Quantity Refills Last Filled Start Date End Date oxyCODONE-acetamin ophen (PERCOCET) 5-325 mg per tabletIndications: Pain Take 1 tablet by mouth every 6 (six) hours as needed for pain Do not exceed 8 tablets per day. 90 tablet 05/01/2020 0 documented in this encounter Progress Notes * Lamin Ricci MD - 05/01/2020 1:15 PM CDT Images from the original note were not included. Subjective/Objective Patient ID: Gulshan Johnston is a 80 y.o. male. Visit Date: 05/01/2020 Chief Complaint Med Refill HPI Returns to the office for repeat evaluation. States that he has been doing good and the back pain is under control. The insomnia is under control Taking his vit d aily. The gayatri and the bph is under control. Taking his meds as directed. Review of Systems Constitutional: Negative for activity [...] patient is not nervous/anxious. Physical Exam Vitals signs reviewed. Constitutional: General: He is not in acute distress. Appearance: He is well-developed. HENT: Head: Normocephalic. Right Ear: External ear normal. Left Ear: External ear normal. Eyes: Conjunctiva/sclera: Conjunctivae normal. Pupils: Pupils are equal, round, and reactive to light. Neck: Musculoskeletal: Neck supple. Thyroid: No thyromegaly. Comments: ROM appropriate Cardiovascular: Rate and Rhythm: Normal rate and regular rhythm. Heart sounds: Normal heart sounds. No murmur. No friction rub. No gallop. Pulmonary: Effort: Pulmonary effort is normal. Breath sounds: Normal breath sounds. Abdominal: General: Bowel sounds are normal. There is no distension. Palpations: Abdomen is soft. Tenderness: There is no abdominal tenderness. Musculoskeletal: Comments: Lumbar back pain to palpation Skin: General: Skin is warm and dry. Capillary Refill: Capillary refill takes less than 2 seconds. Neurological: Mental Status: He is alert and oriented to person, place, and time. Psychiatric: Behavior: Behavior normal. Assessment/Plan Diagnoses and all orders for this visit: Degenerative lumbar spinal stenosis (M48.061) (Primary) Comments: condition chornic stbael refill pain meds. Gastroesophageal reflux disease with esophagitis without hemorrhage (K21.00) Comments: conditoin chronic stbale contineu care Hypercholesterolemia (E78.00) Comments: condition chronic stblae refil lmeds. Primary insomnia (F51.01) Comments: condition chronic stblae cotninue care Benign prostatic hyperplasia without lower urinary tract symptoms (N40.0) Comments: conditoin chronic stbale continue care Lamin Ricci MD documented in this encounter Plan of Treatment Not on file documented as of this encounter Visit Diagnoses Diagnosis Degenerative lumbar spinal stenosis- Primary Spinal stenosis of lumbar region Gastroesophageal reflux disease with esophagitis without hemorrhage Hypercholesterolemia Pure hypercholesterolemia Primary insomnia Persistent disorder of initiating or maintaining sleep Benign prostatic hyperplasia without lower urinary tract symptoms Chronic pain syndrome documented in this encounter Discontinued Medications Medication Sig Discontinue Reason Start Date End Da te methylPREDNISolone (MEDROL DOSEPACK) 4 mg DosepackIndications:Chr onic pain syndrome Take as directed on package. Therapy completed 02/06/2020 05/01/2020 oxyCODONE-acetaminophen (PERCOCET) 5-325 mg per tabletIndications:Pain Take 1 tablet by mouth every 6 (six) hours as needed for pain Do not exceed 8 tablets per day. Reorder 02/26/2020 05/01/2020 documented as of this encounter Historical Medications * This list may reflect changes made after this encounter. vitamin E (AQUASOL E) 1,000 unit capsule Take 5 capsules (5,000 Units total) by mouth daily 05/19/2024 added in this encounter Care Teams Asset Recovery Specialist Relationship Specialty Start Date End Date Lamin Ricci MD PCP - General Family Medicine 10/07/18 07/09/22 documented as of this encounter
--- OUTSIDE RECORDS SUMMARY | 2024-08-07 02:27 | XMS_ITS | Encounter Summary ---
Author Organization [facility] Address [address] [place] [address] Care Team Providers Care Social Science Professor Name Role Phone Lamin Ricci MD Primary Care Provider [phone] Reason for Visit * Reason Onset Date Comments Med Refill 03/02/2019 Encounter Details Date Type Department Care Team (Late st Contact Info) Description 03/02/2019 Telephone [facility] Family Medicine [address] [place] [address] Lamin Ricci MD [address] [place] [id number] Med Refill Social History Tobacco Use Types Packs/Day Years Used Date Smoking Tobacco: Never Smokeless Tobacco: Never Alcohol Use Standard Drinks/Week Comments Not Currently 0 (1 standard drink = 0.6 oz pur e alcohol) AUDIT-C Answer Date Recorded Frequency of Alcohol Consumption Never 10/19/2018 Average Number of Drinks Not on file 019 Frequency of Binge Drinking Not on file 09/2018 Sex and Gender Information Value Date Recorded Sex Assigned at Not on file Legal Sex Male 8:20 PM DIRECTOR OF EARLY CHILDHOOD EDUCATION Gender Identity Male 03/24/2021 7:53 PM CDT Sexual Orientation Straight 03/24/2021 7 :53 PM CDT documented as of this encounter Miscellaneous Notes * Telephone Encounter - Jazzy Fink MA - 03/02/2019 5:19 PM CDT Pt has appt tomorrow This encounter will be closed * Telephone Encounter - Javy Mcclendon PA - 03/02/2019 10:52 AM CDT LMTCB * Telephone Encounter - Melissa Dalton - 03/02/2019 9:36 AM CDT Appointment made for 03/03/2018. Is wanting to know if we can call something out for his diarrhea until he is seen tomorrow. * Telephone Encounter - Jazzy Fink MA - 03/02/2019 9:26 AM CDT CO diarrhea off and on for 4 days Please call for appt for tomorrow documented in this encounter Plan of Treatment Not on file documented as of this encounter Visit Diagnoses Not on filedocumented in this encounter Care Teams Social Science Professor Relationship Specialty Start Date End Date Lamin Ricci MD PCP - General Family Medicine 10/07/18 07/09/22 documented as of this encounter
--- OUTSIDE RECORDS SUMMARY | 2024-08-07 02:27 | XMS_ITS | Encounter Summary ---
Author Organization [facility] Address [address] [place] [address] Care Team Providers Care Dust Collector Attendant Name Role Phone Lamin Ricci MD Primary Care Provider [phone] Encounter Details Date Type Department Care Team (Late st Contact Info) Description 08/23/2020 Orders Only [facility] Building [address] [place] [address] Covid, Vaccination Provider Social History Tobacco Use Types Packs/Day [...] staff should administer the PHQ-9) 0 06/03/2020 [facility] - [...] on file Legal Sex Male 8:20 PM HEADER SET UP OPERATOR Gender Identity Male 03/24/2021 7:53 PM CDT Sexual Orientation Straight 03/24/2021 7: 53 PM CDT Occupation Industry Job Start Date Job End Date retired Not on file Not on file Not on file documented as of this encounter Plan of Treatment Not on file documented as of this encounter Visit Diagnoses Not on filedocumented in this encounter Orders Immunization/Injection Count Last Ordered Date First Ordered Date SARS-COV-2 VACCINE 1ST DOSE APPT 1 08/30/19 21 documented in this encounter Care Teams Dust Collector Attendant Relationship Specialty Start Date End Date Lamin Ricci MD PCP - General Family Medicine 10/07/18 07/09/22 documented as of this encounter
--- OUTSIDE RECORDS SUMMARY | 2024-08-07 02:27 | XMS_ITS | Encounter Summary ---
Author Organization [facility] Address [address] [place] [address] Care Team Providers Care Track Template Maker Name Role Phone Lamin Ricci MD Primary Care Provider [phone] Reason for Visit * Reason Comments Insomnia Encounter Details Date Type Department Care Team ([facility] st Contact Info) Description 08/28/2019 8:00 AM TECHNOLOGY ENGINEER Office Visit [facility] Family Medicine [address] [place] [address] Lamin Ricci MD [address] [place] [address] [address] [place] [address] Primary insomnia (Primary Dx); Gastroesophageal reflux disease with esophagitis; Degenerative lumbar spinal stenosis; Hypercholesterolemia Social History Tobacco Use Types Packs/Day Years [...] and Family Twice a week 05/31/2019 Attends Synagogue Services Never 05/31 Active Member of Clubs [...] Answer Date Recorded PHQ-2 Score 0 03/09/2019 [facility] Occupat ional Health [...] on file Legal Sex Male 8:20 PM TECHNOLOGY ENGINEER Gender Identity Male 03/24/2021 7:53 PM CDT Sexual Orientation Straight 03/24/2021 7: 53 PM CDT Occupation Industry Job Start Date Job End Date retired Not on file Not on file Not on file documented as of this encounter Last Filed Vital Signs Vital Sign Reading Time Taken Comments Blood Pressure 110/70 08/28/2019 8:47 AM TECHNOLOGY ENGINEER Pulse 70 08/28/2019 8:47 AM TECHNOLOGY ENGINEER Temperature 36.6 ??C (97.8 ??F) 08/28/2019 8:47 AM CS T Respiratory Rate 16 08/28/2019 8:47 AM TECHNOLOGY ENGINEER Oxygen Saturation - - Inhaled Oxygen Concentration - - Weight 78.7 kg (173 lb 6.4 oz) 08/28/2019 8:47 A M TECHNOLOGY ENGINEER Height 177.8 cm (5' 10 ) 08/28/2019 8:47 AM TECHNOLOGY ENGINEER Body Mass Index 24.88 08/28/2019 8:47 AM TECHNOLOGY ENGINEER documented in this encounter Ordered Prescriptions Prescription Sig Dispense Quantity Refills Last Filled Start Date End Date eszopiclone (LUNESTA) 2 mg tabletIndications: Insomnia Take 1 tablet (2 mg total) by mouth nightly as needed for sleep Take immediately before bedtime 30 tablet 08/28/2019 0 documented in this encounter Progress Notes * Lamin Ricci MD - 08/28/2019 8:00 AM CST Subjective/Objective Patient ID: Gulshan Johnston is a 79 y.o. male. Visit Date: 08/28/2019 Chief Complaint Insomnia HPI Returns to the office for repeat evaluation. States that he still is having problems sleeping nad states that he has been using melatonin with no success. The back pain continues and is no worse. Taking his vit d daily. The movantik is working for the contiptation. Review of Systems Constitutional: Negative for activity change. Insomnia HENT: Negative for congestion. Eyes: Negative for [...] Abdomen is soft. Tenderness: There is no tenderness. Musculoskeletal: Comments: Chronic lumbar back pain Skin: General: Skin is warm and dry. Capillary Refill: Capillary refill takes less than 2 seconds. Neurological: Mental Status: He is alert and oriented to person, place, and time. Psychiatric: Behavior: Behavior normal. Assessment/Plan Diagnoses and all orders for this visit: Primary insomnia (F51.01) (Primary) Comments: condition acute. lunesta 2 mg per day Gastroesophageal reflux disease with esophagitis (K21.0) Comments: condoitn chronic stable. refill meds. Degenerative lumbar spinal stenosis (M48.061) Comments: condtoin chornic stblae. refill meds. Hypercholesterolemia (E78.00) Comments: condotin chronic stable. refill meds. Lamin Ricci MD NOLOGY ENGINEER documented in this encounter Plan of Treatment Not on file documented as of this encounter Visit Diagnoses Diagnosis Primary insomnia- Primary Persistent disorder of initiating or maintaining sleep Gastroesophageal reflux disease with esophagitis Degenerative lumbar spinal stenosis Spinal stenosis of lumbar region Hypercholesterolemia Pure hypercholesterolemia documented in this encounter Discontinued Medications Medication Sig Discontinue Reason Start Date End Da te azithromycin (ZITHROMAX) 250 mg tabletIndications:Acute non-recurrent maxillary sinusitis Take 2 tabs (500 mg) by mouth today, than 1 daily for 4 days. Therapy completed 05/31/2019 08/28/2019 methylPREDNISolone (MEDROL DOSEPACK) 4 mg DosepackIndications:Acu te non-recurrent maxillary sinusitis Take as directed on package. Therapy completed 05/31/2019 08/28/2019 documented as of this encounter Care Teams Track Template Maker Relationship Specialty Start Date End Date Lamin Ricci MD PCP - General Family Medicine 10/07/18 07/09/22 documented as of this encounter
--- OUTSIDE RECORDS SUMMARY | 2024-08-07 02:27 | XMS_ITS | Encounter Summary ---
Author Organization [facility] Address [address] [place] [address] Care Team Providers Care Family Support Specialist Name Role Phone Lamin Ricci MD Primary Care Provider [phone] Encounter Details Date Type Department Care Team (Latest Contact Info) Description 05/31/2019 Orders Only [facility] Family Medicine [address] [place] [address] Lamin Ricci MD [address] [address] Prostate cancer (CMS/HCC) (Primary Dx); Medicare annual wellness visit, initial; Pure hypercholesterolemia Social History Tobacco Use Types [...] and Family Twice a week 05/31/2019 Attends Alevism Services Never 05/31 Active Member of Clubs [...] Answer Date Recorded PHQ-2 Score 0 03/09/2019 [facility] - Occupational Stress Questionnaire Answer Date Recorded [...] on file Legal Sex Male 8:20 PM CREDIT UNION MANAGER Gender Identity Male 03/24/2021 7:53 PM CDT Sexual Orientation Straight 03/24/2021 7: 53 PM CDT Occupation Industry Job Start Date Job End Date retired Not on file Not on file Not on file documented as of this encounter Progress Notes * Sierra Fraire RN - 05/31/2019 11:27 AM CST Labs sent to [facility] IT UNION MANAGER documented in this encounter Plan of Treatment Not on file documented as of this encounter Procedures Procedure Name Priority Date/Time Associated Diagnosis Comments PSA SCREEN Routine 06/06/2019 6:43 AM CREDIT UNION MANAGER Prostate cancer (CMS/HCC) Medicare annual wellness visit, initial Pure hypercholesterolemia CBC WITH AUTO DIFFERENTIAL Routine 06/06/2019 6:43 AM CREDIT UNION MANAGER Prostate cancer (CMS/HCC) Medicare annual wellness visit, initial Pure hypercholesterolemia LIPID PANEL Routine 06/06/2019 6:43 AM CREDIT UNION MANAGER Prostate cancer ([facility]) Medicare annual wellness visit, initial Pure hypercholesterolemia COMPREHENSIVE METABOLIC PANEL Routine 06/06/2019 6:43 AM CREDIT UNION MANAGER Prostate cancer ([facility]) Medicare annual wellness visit, initial Pure hypercholesterolemia documented in this encounter Results * PSA screen (06/06/2019 6:43 AM CREDIT UNION MANAGER) PSA <0.1 < OR = 4.0 ng/mL [facility] [place] Comment: The total PSA value from this assay system is standardized against the WHO standard. The test result will be approximately 20% lower when compared to the equimolar-standardized total PSA ([place]). Comparison of serial PSA results should be interpreted with this fact in mind. This test was performed using the Siemens chemiluminescent method. Values obtained from different assay methods cannot be used interchangeably. PSA levels, regardless of value, should not be interpreted as absolute evidence of the presence or absence of disease. Blood specimen (specimen) 06/06/2019 6:43 AM CREDIT UNION MANAGER 06/06/2019 6:44 AM CREDIT UNION MANAGER Narrative [facility] - 06/07/2019 2:02 AM CREDIT UNION MANAGER FASTING:YES FASTING: YES Resulting Agency Comment Performing Organization Information: ?Site ID: [place] ?Name: [facility] ?Address: [address] [place] [address] [place] [address] ?Director: Emiliano Ho D.O., MPH us Lamin Ricci MD LAB BLOOD ORDERABLES Final Resu lt [facility] [place] * (ABNORMAL) Lipid panel (06/06/2019 6:43 AM CREDIT UNION MANAGER) Cholesterol 171 <200 mg/dL [facility] [place] HDL 48 >40 mg/dL [facility] [place] Triglycerides 129 <150 mg/dL [facility] [place] LDL 100(H) mg/dL (calc) [facility] [place] Comment: Reference range: <100 Desirable range <100 mg/dL for primary prevention; ?? <70 mg/dL for patients with CHD or diabetic patients with > or = 2 CHD risk factors. LDL-C is now calculated using the Rad calculation, which is a validated novel method providing better accuracy than the Friedewald equation in the estimation of LDL-C. Harmeet LAFLEUR et al. BECCA. 2013;310(19): 1666-9312 (http://education.Accumetrics/faq/XMJ586) Chol/HDL ratio 3.6 <5.0 (calc) [facility] [place] Non-HDL, (LDL+VLDL) 123 <130 mg/dL (calc) [facility] [place] Comment: For patients with diabetes plus 1 major ASCVD risk factor, treating to a non-HDL-C goal of <100 mg/dL (LDL-C of <70 mg/dL) is considered a therapeutic option. Blood specimen (specimen) 06/06/2019 6:43 AM CREDIT UNION MANAGER 06/06/2019 6:44 AM CREDIT UNION MANAGER Narrative [facility] - 06/07/2019 2:02 AM CREDIT UNION MANAGER FASTING:YES FASTING: YES Resulting Agency Comment Performing Organization Information: ?Site ID: [place] ?Name: [facility] ?Address: [address] [place] [address] ?Director: Emiliano Ho D.O., MPH Lamin Ricci MD LAB BLOOD ORDERABLES Final Resu lt [facility] [place] * Comprehensive metabolic panel (06/06/2019 6:43 AM CREDIT UNION MANAGER) Pathologist [facility] Glucose 91 65 - 99 mg/dL [facility] [place] Comment: ? Fasting reference interval BUN 19 7 - 25 mg/dL [facility] [place] Creatinine 0.84 0.70 - 1.18 mg/dL [facility] [place] Comment: For patients >49 years of age, the reference limit for Creatinine is approximately 13% higher for people identified as -[place]. eGFR NON-AFR. ETHIOPIAN 84 > OR = 60 mL/min/1 .73m2 [facility] [place] EGFR 98 > OR = 60 mL/min/1 .73m2 [facility] BUN/creat ratio NOT APPLICABLE 6 - 22 (calc) [facility] [place] Sodium 139 135 - 146 mmol/L [facility] [place] Potassium, pl 3.9 3.5 - 5.3 mmol/L [facility] [place] Chloride 105 98 - 110 mmol/L [facility] CO2 28 20 - 32 mmol/L [facility] Calcium 9.4 8.6 - 10.3 mg/dL [facility] [place] Protein, sr 6.8 6.1 - 8.1 g/dL [facility] [place] Albumin 4.4 3.6 - 5.1 g/dL [facility] [place] GLOBULIN 2.4 1.9 - 3.7 g/dL (calc) [facility] [place] Alb/glob ratio 1.8 1.0 - 2.5 (calc) [facility] [place] Bilirubin, total 0.8 0.2 - 1.2 mg/dL [facility] [place] Alk phos 62 40 - 115 U/L [facility] AST 23 10 - 35 U/L [facility] ALT (SGPT) 32 9 - 46 U/L [facility] [place] Blood specimen (specimen) 06/06/2019 6:43 AM CREDIT UNION MANAGER 06/06/2019 6:44 AM CREDIT UNION MANAGER Narrative [facility] - 06/07/2019 2:02 AM CREDIT UNION MANAGER FASTING:YES FASTING: YES Resulting Agency Comment Performing Organization Information: ?Site ID: [place] ?Name: [facility] ?Address: [address] [place] [address] [place] [address] ?Director: Emiliano Ho D.O., MPH us Lamin Ricci MD LAB BLOOD ORDERABLES Final Resu lt [facility] [place] * CBC with auto differential (06/06/2019 6:43 AM CREDIT UNION MANAGER) WBC 6.5 3.8 - 10.8 Thousand/u L [facility] [place] RBC, POC 4.40 4.20 - 5.80 Million/uL [facility] [place] Hgb 13.8 13.2 - 17.1 g/dL [facility] [place] Hct 41.2 38.5 - 50.0 % [facility] MCV 93.6 80.0 - 100.0 fL [facility] MCH 31.4 27.0 - 33.0 pg [facility] [place] MCHC 33.5 32.0 - 36.0 g/dL [facility] [place] Rdw 13.0 11.0 - 15.0 % [facility] [place] Platelets 230 140 - 400 Thousand/u L [facility] [place] MPV 10.0 7.5 - 12.5 fL [facility] [place] Neutrophils, abs 3,946 1,500 - 7,800 cells/uL [facility] [place] Lymphocytes, abs 1,833 850 - 3,900 cells/uL [facility] [place] Monocyte abs 559 200 - 950 cells/uL [facility] [place] Eosinophils, abs 111 15 - 500 cells/uL [facility] [place] Basophils, abs 52 0 - 200 cells/uL [facility] [place] Neutrophils 60.7 % [facility] [place] Lymphocyte pct 28.2 % [facility] [place] Monocytes 8.6 % [facility] [place] Eosinophils 1.7 % [facility] [place] Basophils 0.8 % [facility] [place] Blood specimen (specimen) 06/06/2019 6:43 AM CREDIT UNION MANAGER 06/06/2019 6:44 AM CREDIT UNION MANAGER Narrative [facility] - 06/07/2019 2:02 AM CREDIT UNION MANAGER FASTING:YES FASTING: YES Resulting Agency Comment Performing Organization Information: ?Site ID: [place] ?Name: [facility] ?Address: [facility] [place] [address] ?Director: Emiliano Ho D.O., MPH us Lamin Ricci MD LAB BLOOD ORDERABLES Final Resu lt [facility] [place] documented in this encounter Visit Diagnoses Diagnosis Prostate cancer (HCC)- Primary Malignant neoplasm of prostate Medicare annual wellness visit, initial Pure hypercholesterolemia documented in this encounter Care Teams Family Support Specialist Relationship Specialty Start Date End Date Lamin Ricci MD PCP - General Family Medicine 10/07/18 07/09/22 documented as of this encounter
--- OUTSIDE RECORDS SUMMARY | 2024-08-07 02:27 | XMS_ITS | Encounter Summary ---
Author Organization [facility] Address [address] [place] [address] Care Team Providers Care Alumina Refinery Operator Name Role Phone Lamin Ricci MD Primary Care Provider [phone] Reason for Visit * Reason Comments Arthritis Encounter Details Date Type Department Care Team ([facility] st Contact Info) Description 07/04/2020 8:00 AM GOVERNMENT AFFAIRS SPECIALIST Office Visit [facility] Family Medicine [address] [place] [address] Lamin Ricci MD [address] [place] [address] [address] [place] [address] 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); Constipation due to opioid therapy; Gastroesophageal reflux disease with esophagitis without hemorrhage; Hypercholesterolemia; Vitamin D deficiency Social History Tobacco Use [...] staff should administer the PHQ-9) 0 06/03/2020 [facility] of Occupat ional Health - Occupational Stress [...] on file Legal Sex Male 8:20 PM GOVERNMENT AFFAIRS SPECIALIST Gender Identity Male 03/24/2021 7:53 PM CDT Sexual Orientation Straight 03/24/2021 7: 53 PM CDT Occupation Industry Job Start Date Job End Date retired Not on file Not on file Not on file documented as of this encounter Last Filed Vital Signs Vital Sign Reading Time Taken Comments Blood Pressure 102/60 07/04/2020 8:23 AM GOVERNMENT AFFAIRS SPECIALIST Pulse 76 07/04/2020 8:23 AM GOVERNMENT AFFAIRS SPECIALIST Temperature 36.4 ??C (97.6 ??F) 07/04/2020 8:23 AM CS T Respiratory Rate 19 07/04/2020 8:23 AM GOVERNMENT AFFAIRS SPECIALIST Oxygen Saturation 97% 07/04/2020 8:23 AM GOVERNMENT AFFAIRS SPECIALIST Inhaled Oxygen Concentration - - Weight 79.4 kg (175 lb) 07/04/2020 8:23 AM GOVERNMENT AFFAIRS SPECIALIST Height 177.8 cm (5' 10 ) 07/04/2020 8:23 AM GOVERNMENT AFFAIRS SPECIALIST Body Mass Index 25.11 07/04/2020 8:23 AM GOVERNMENT AFFAIRS SPECIALIST documented in this encounter Ordered Prescriptions Prescription Sig Dispense Quantity Refills Last Filled Start Date End Date naloxegoL (MOVANTIK) 25 mg tabletIndications: Constipation due to opioid therapy Take 1 tablet (25 mg total) by mouth daily 90 tablet 3 07/04/2020 07/27/2022 documented in this encounter Progress Notes * Lamin Ricci MD - 07/04/2020 8:00 AM CST Images from the original note were not included. Subjective/Objective Patient ID: Gulshan Johnston is a 80 y.o. male. Visit Date: 07/04/2020 Chief Complaint Arthritis HPI Returns to the office for repeat evaluation. States that he continues to have the lumbar back pain and states that the movantik is working for the constipation. The gerd and the htn and the bph is under control. Taking his meds as directed. Taking his vit d daily. Review of Systems Constitutional: Negative for activity change. HENT: Negative for congestion. Eyes: Negative for visual disturbance. Respiratory: Negative for cough and chest tightness. Cardiovascular: Negative for chest pain and leg swelling. Gastrointestinal: Negative for abdominal pain, blood in stool, constipation, diarrhea and nausea. Genitourinary: Negative for difficulty urinating. Musculoskeletal: Positive for arthralgias and back pain. Negative for gait problem. Skin: Negative for rash. Neurological: [...] Musculoskeletal: Comments: Lumbar back pain to palpation and rom. Skin: General: Skin is warm and dry. Capillary Refill: Capillary refill takes less than 2 seconds. Neurological: Mental Status: He is alert and oriented to person, place, and time. Psychiatric: Behavior: Behavior normal. 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 Constipation due to opioid therapy (K59.03, T40.2X5A) Comments: conditoin chronic stable refill movantik Orders: - naloxegoL (MOVANTIK) 25 mg tablet; Take 1 tablet (25 mg total) by mouth daily Gastroesophageal reflux disease with esophagitis without hemorrhage (K21.00) Comments: condition chronic stable refill meds. Hypercholesterolemia (E78.00) Comments: conditon chronic stable refill meds Vitamin D deficiency (E55.9) Comments: condition chronic stblae continue vit d daily Lamin Ricci MD RNMENT AFFAIRS SPECIALIST documented in this encounter Plan of Treatment Not on file documented as of this encounter Visit Diagnoses Diagnosis Chronic bilateral low back pain with bilateral sciatica- Primary Constipation due to opioid therapy Gastroesophageal reflux disease with esophagitis without hemorrhage Hypercholesterolemia Pure hypercholesterolemia Vitamin D deficiency documented in this encounter Discontinued Medications Medication Sig Discontinue Reason Start Date End Da te naloxegol (MOVANTIK) 25 mg tabletIndications:Consti pation due to opioid therapy Take 1 tablet (25 mg total) by mouth daily Reorder 02/15/2019 07/04/2020 documented as of this encounter Care Teams Alumina Refinery Operator Relationship Specialty Start Date End Date Lamin Ricci MD PCP - General Family Medicine 10/07/18 07/09/22 documented as of this encounter
--- OUTSIDE RECORDS SUMMARY | 2024-08-07 02:27 | XMS_ITS | Encounter Summary ---
Author Organization [facility] Address [address] [place] [address] Care Team Providers Care Coroner Forensic Technician Name Role Phone Lamin Ricci MD Primary Care Provider [phone] Reason for Visit * Reason Comments Hyperlipidemia Encounter Details Date Type Department Care Team (Latest Contact Info) Description 12/26/2019 1:00 PM CDT Telemedicine [facility] Family Medicine [address] [place] [address] Lamin Ricci MD [address] [place] [id number] Gastroesophageal reflux disease with esophagitis (Primary Dx); Chronic bilateral low back pain with bilateral sciatica; Pure hypercholesterolemia; Constipation Social History Tobacco Use Types Packs/Day Years [...] Answer Date Recorded PHQ-2 Score 0 03/09/2019 [facility] of Occupat ional Health - Occupational Stress [...] on file Legal Sex Male 8:20 PM FURNACE PROCESS PLANT OPERATOR Gender Identity Male 03/24/2021 7:53 PM CDT Sexual Orientation Straight 03/24/2021 7: 53 PM CDT Occupation Industry Job Start Date Job End Date retired Not on file Not on file Not on file documented as of this encounter Ordered Prescriptions Prescription Sig Dispense Quantity Refills Last Filled Start Date End Date diclofenac DR (VOLTAREN) 75 mg EC tablet Take 1 tablet (75 mg total) by mouth 2 (two) times a day 180 tablet 3 12/26/2019 0 omeprazole (PriLOSEC) 20 mg capsule Take 1 capsule (20 mg total) by mouth daily 90 capsule 3 12/26/2019 1 documented in this encounter Progress Notes * Lamin Ricci MD - 12/26/2019 1:00 PM CDT Images from the original note were not included. Subjective/Objective Patient ID: Gulshan Johnston is a 79 y.o. male. Visit Date: 12/26/2019 Chief Complaint Hyperlipidemia HPI Returns to the office for repeat evaluation. States that he has been doing ok and the movantik has been helping the constipation. States that he continues with the pain and states that the gerd is under control and the back pian continues. Taking his meds as direted and the bph is under control. Review of Systems Constitutional: Negative for activity change. HENT: Negative for congestion. Eyes: Negative for visual disturbance. Respiratory: Negative for cough and chest tightness. Cardiovascular: Negative for chest pain and leg swelling. Gastrointestinal: Positive for constipation. Negative for abdominal pain, blood in stool, diarrhea and nausea. Genitourinary: Negative for difficulty urinating. Musculoskeletal: Positive for back pain. Negative for arthralgias and gait problem. Skin: Negative for rash. Neurological: Negative for headaches. Psychiatric/Behavioral: Negative for sleep disturbance. The patient is not nervous/anxious. Physical Exam Neurological: Mental Status: He is alert and oriented to person, place, and time. Assessment/Plan Diagnoses and all orders for this visit: Gastroesophageal reflux disease with esophagitis (K21.0) (Primary) Comments: conditon chroinc stbale refill prilosec Chronic bilateral low back pain with bilateral sciatica (M54.42, M54.41, G89.29) Comments: condion chornic stabel refill meloxicam Pure hypercholesterolemia (E78.00) Comments: conditoin choroic stbale continue care Constipation (K59.00) Comments: conditon chronic stable. continue the movantik Other orders - omeprazole (PriLOSEC) 20 mg capsule; Take 1 capsule (20 mg total) by mouth daily - diclofenac DR (VOLTAREN) 75 mg EC tablet; Take 1 tablet (75 mg total) by mouth 2 (two) times a day Lamin Ricci MD This was a telemedicine visit with Gulshan Johnston alone which took place via Real-time video connection (InTouch, Zoom or similar). During the visit, I was located in the office and the patient was located at home in the state of [place]. The patient visit started at 1110 and ended at 1122. This reflectsthe time spent in medical discussion. The patient has been informed that the visit may not be secure and acknowledged the information. I have explained the option of participating in a telephone or video visit during the [facility] [place] [address] emergency to the patient. After being given an opportunity to ask questions about and discuss this type of visit, the patient verbally consented to proceeding with the telephone/video visit.The patient understands that this service replaces an office visit and they may be billed and/or responsible for any applicable copayments. Lamin Ricci MD documented in this encounter Plan of Treatment Not on file documented as of this encounter Visit Diagnoses Diagnosis Gastroesophageal reflux disease with esophagitis- Primary Chronic bilateral low back pain with bilateral sciatica Pure hypercholesterolemia Constipation Unspecified constipation documented in this encounter Discontinued Medications Medication Sig Discontinue Reason Start Date End Da te oxyCODONE-acetaminophe n (Percocet) 5-325 mg per tabletIndications:Cross Country Coach radha bilateral low back pain with bilateral sciatica Take 1 tablet by mouth every 6 (six) hours as needed for pain Refill not appropriate 11/28/2019 12/26/2019 omeprazole (PriLOSEC) 20 mg capsule TAKE 1 CAPSULE DAILY Reorder 11/18/2018 12/26/[address] (VOLTAREN) 75 mg EC tablet T2CF Reorder 09/12/2019 12/26/2019 documented as of this encounter Care Teams Coroner Forensic Technician Relationship Specialty Start Date End Date Lamin Ricci MD PCP - General Family Medicine 10/07/18 07/09/22 documented as of this encounter
--- OUTSIDE RECORDS SUMMARY | 2024-08-07 02:27 | XMS_ITS | Encounter Summary ---
Author Organization [facility] Medical [facility] Address [address] [place] [address] Care Team Providers Care Analyst Market Intelligence Name Role Phone Lamin Ricci MD Primary Care Provider [phone] Reason for Referral * Procedure (Routine) - Closed Specialty Diagnoses / Procedures Referred By Contsunita t Referred To Contact Diagnoses Impacted cerumen of right ear Procedures Ear Cerumen Removal Lamin Ricci MD Phone: tel: fax: [facility] Referral ID Status Reason Start Date Expiration Date Visits Re quested Visits Authorized [id number] Closed 05/31/2019 12/09/2020 1 1 ITY ASSURANCE CLERK Reason for Visit * Reason Comments Medicare Wellness Encounter Details Date Type Department Care Team (Late st Contact Info) Description 05/31/2019 9:30 AM QUALITY ASSURANCE CLERK Office Visit [facility] [address] [place] [address] Lamin Ricci MD [address] [place] [id number] Medicare annual wellness visit, initial (Primary Dx); Chronic bilateral low back pain with bilateral sciatica; Acute non-recurrent maxillary sinusitis; Gastro-esophageal reflux disease without esophagitis; Impacted cerumen of right ear Social History Tobacco Use Types Packs/Day Years [...] Answer Date Recorded PHQ-2 Score 0 03/09/2019 [facility] [place] [facility] Occupat ional Health - Occupational Stress [...] Legal Sex Male 8:20 PM QUALITY ASSURANCE CLERK Gender Identity Male 03/24/2021 7:53 PM CDT Sexual Orientation Straight 03/24/2021 7: 53 PM CDT Occupation Industry Job Start Date Job End Date retired Not on file Not on file Not on file documented as of this encounter Last Filed Vital Signs Vital Sign Reading Time Taken Comments Blood Pressure 114/68 05/31/2019 10:03 AM QUALITY ASSURANCE CLERK Pulse 75 05/31/2019 10:03 AM QUALITY ASSURANCE CLERK Temperature 36.8 ??C (98.2 ??F) 05/31/2019 10:[address] Respiratory Rate 18 05/31/2019 10:03 AM QUALITY ASSURANCE CLERK Oxygen Saturation 99% 05/31/2019 10:03 AM QUALITY ASSURANCE CLERK Inhaled Oxygen Concentration - - Weight 79.4 kg (175 lb) 05/31/2019 10:03 AM QUALITY ASSURANCE CLERK Height 177.8 cm (5' 10 ) 05/31/2019 10:03 AM QUALITY ASSURANCE CLERK Body Mass Index 25.11 05/31/2019 10:03 AM QUALITY ASSURANCE CLERK documented in this encounter Ordered Prescriptions Prescription Sig Dispense Quantity Refills Last Filled Start Date End Date azithromycin (ZITHROMAX) 250 mg tabletIndications: Acute non-recurrent maxillary sinusitis Take 2 tabs (500 mg) by mouth today, than 1 daily for 4 days. 6 tablet 05/31/2019 0 methylPREDNISolone (MEDROL DOSEPACK) 4 mg DosepackIndication s:Acute non-recurrent maxillary sinusitis Take as directed on package. 21 tablet 05/31/2019 0 oxyCODONE-acetamin ophen (PERCOCET) 5-325 mg per tabletIndications: Chronic bilateral low back pain with bilateral sciatica Take 1 tablet by mouth every 6 (six) hours as needed for pain 90 tablet 05/31/2019 0 documented in this encounter Progress Notes * Lamin Ricci MD - 05/31/2019 9:30 AM CST Images from the original note were not included. MEDICARE/MANAGED CARE ANNUAL WELLNESS VISIT Patient Name: Gulshan Johnston Date Of : 1940 Date Of Service: @DATEOFSERVICE@ Medicare Health Risk Assessment Basic Information In general, would you say your health is: Good Do you have an Advanced Directive (Living Will) and/or Durable Power of Geospatial Information Technologist?: Yes - Please bring a copy to your next appointment Do you have trouble hearing the television [...] problems currently or recently? Laundry and/or housekeeping: Yes Handling Money: No Shopping: No Food preparation: No Transportation: No Taking and/or getting your own medications: No HPI: Returns to the office for intial medicare physical. States that he has a large amount of sinus drainage and congestion and cough. The right ear has decreased hearing. Has the chronic lumbar back painand the asthma is under control and the gerd is stable. The htn is controlled. ROS Review of Systems Constitutional: Negative for activity change. HENT: Positive for congestion and sinus pressure. Decreased hearing right ear Eyes: Negative for visual disturbance. Respiratory: Positive for cough. Negative for chest tightness. Cardiovascular: Negative for chest pain and leg swelling. Gastrointestinal: Negative for abdominal pain, blood in stool, constipation, diarrhea and nausea. Genitourinary: Negative for difficulty urinating. Musculoskeletal: Positive for back pain. Negative for arthralgias and gait problem. Skin: Negative for rash. Neurological: Negative for headaches. Psychiatric/Behavioral: Negative for sleep disturbance. The patient is not nervous/anxious. Problem List, Past Medical and Surgical History: Patient Active Problem List Diagnosis ??? Hypercholesterolemia ??? Osteoarthritis ??? Rosacea ??? Bronchial asthma ??? Gastroesophageal reflux disease ??? Diffuse cervicobrachial syndrome ??? Lumbago ??? Degenerative lumbar spinal stenosis ??? Chronic pain ??? Cervical radiculopathy ??? Anemia ??? Insomnia, unspecified ??? Intrinsic eczema ??? Prostate cancer ([facility]) ??? Gastro-esophageal reflux disease without esophagitis ??? Pure hypercholesterolemia ??? Lumbar back pain ??? Primary osteoarthritis of left shoulder ??? Dyspnea, unspecified ??? Elevated blood pressure reading Past Medical History: Diagnosis Date ??? GERD [...] - (Added by TW Conv) ? ? MO REMOVAL OF TONSILS,<12 Y/O Tonsillectomy - (Added by Conv) ??? PROSTATE CANCER GENE 3 (PCA3) Family History: Family History Problem Relation Age of Onset ??? Hypertension Other Hypertension - (Added by TW Conv) ??? Stroke Other Stroke Syndrome - (Added by TW Conv) ??? Tuberculosis Mother Family history of tuberculosis - (Added by TW Conv) Social History: Social History Socioeconomic History ??? Marital status: Spouse name: Not on file ??? Number of children: 2 ??? Years of education: 12 ??? Highest education level: High school graduate Occupational History ??? Occupation: retired Social Needs ??? Financial resource strain: Not hard at all ??? Food insecurity: Worry: Never true Inability: Never true ??? Transportation needs: Medical: No Non-medical: No Tobacco Use ??? Smoking status: Never Smoker ??? Smokeless tobacco: Never Used Substance and Sexual Activity ??? Alcohol use: Not Currently Frequency: Never ??? Drug use: Never ??? Sexual activity: Defer Lifestyle ??? Physical activity: Days per week: 7 days Minutes per session: 20 min ??? Stress: To some extent Relationships ??? Social connections: Talks on phone: More than three times a week Gets together: Twice a week Attends spiritism service: Never Active member of club or organization: No Attends meetings of clubs or organizations: Never Relationship status: ??? Intimate partner violence: Fear of current or ex partner: No Emotionally abused: No Physically abused: No Forced sexual activity: No Other Topics Concern ??? Not on file Social History Narrative Marital History - Currently : (Added by TW Conv) Occupation: Retired (Added by TW Conv) Being A Social Drinker : (Added by Conv) Allergies: Allergies Allergen Reactions ??? Other Sneezing Seasonal allergies Medications: Current Outpatient Medications: ??? aspirin-calcium carbonate 81 mg-300 mg calcium(777 mg) tablet, Take 81 mg by mouth daily , Disp: , Rfl: ??? atorvastatin (LIPITOR) 20 mg tablet, TAKE ONE TABLET DAILY, Disp: 90 tablet, Rfl: 3 ??? qmywbuz-fblgpbrjn-qmhd 333-133-5 mg tablet, Take 1,200 mg by mouth daily , Disp: , Rfl: ??? cholecalciferol (VITAMIN D-3) 1,000 unit capsule, Take 1,000 Units by mouth daily , Disp: , Rfl: ??? cranberry extract 200 mg capsule, Take 2 capsules by mouth 3 (three) times a day , Disp: , Rfl: ??? diclofenac DR (VOLTAREN) 75 mg EC tablet, Take 75 mg by mouth 2 (two) times a day , Disp: , Rfl: ??? finasteride (PROSCAR) 5 mg tablet, Take 1 tablet by mouth daily , Disp: , Rfl: ??? ketoconazole (NIZORAL) 2 % cream, APPLY TWICE DAILY TO GROIN AND BUTTOCK RASH FOR 4 WEEKS, Disp: , Rfl: 2 ??? lecithin 1,200 mg capsule, Take 1 capsule by mouth 2 (two) times a day, Disp: , Rfl: ??? omega 6-mvq-mhj-fish oil (FISH OIL) 360-1,200 mg capsule,delayed release(DR/EC), Take 1 capsuleby mouth daily , Disp: , Rfl: ??? omeprazole (PriLOSEC) 20 mg capsule, TAKE 1 CAPSULE DAILY, Disp: 90 capsule, Rfl: 3 ??? oxyCODONE-acetaminophen (PERCOCET) 5-325 mg per tablet, Take 1 tablet by mouth every 6 (six) hours as needed for pain, Disp: 90 tablet, Rfl: 0 ??? peg [...] times a day, Disp: , Rfl: ??? VENTOLIN HFA 90 mcg/actuation inhaler, Inhale 2 puffs every 4 (four) hours as needed for wheezing or shortness of breath , Disp: , Rfl: ??? vitamin b complex (VITAMINS B COMPLEX) tablet, Rx: Vitamin B Complex - Tablet, Disp: , Rfl: ??? azithromycin (ZITHROMAX) 250 mg tablet, Take 2 tabs (500 mg) by mouth today, than 1 daily for 4days., Disp: 6 tablet, Rfl: 0 ??? methylPREDNISolone (MEDROL DOSEPACK) 4 mg Dosepack, Take as directed on package., Disp: 21 tablet, Rfl: 0 ??? naloxegol (MOVANTIK) 25 mg tablet, Take 1 tablet (25 mg total) by mouth daily (Patient not taking: Reported on 05/31/2019), Disp: 30 tablet, Rfl: 6 No current facility-administered medications for this visit. Depression Screen: PHQ Screening Over the last [...] Down, Depressed, or Hopeless: Not at all Vitals: Vitals BP 114/68 Pulse 75 Temp 36.8 ??C (98.2 ??F) Resp 18 Ht 177.8 cm (5' 10 ) Wt 79.4 kg (175 lb) SpO2 99% BMI 25.11 kg/m?? Body mass index is 25.11 kg/m??. Hearing and Vision Screening: Visual Acuity Screening Right eye Left eye Both eyes Without correction: With correction: 20/25 Exam: Physical Exam Vitals signs reviewed. Constitutional: General: He is not in acute distress. Appearance: He is well-developed. HENT: Head: Normocephalic. Comments: Nasal congestion and cobblestoning in the pop Right Ear: [...] is normal. Breath sounds: Normal breath sounds. Comments: cough Abdominal: General: Bowel sounds are normal. There is no distension. Palpations: Abdomen is soft. Tenderness: There is no tenderness. Musculoskeletal: Comments: Lumbar back pain Skin: General: Skin is warm and dry. Capillary Refill: Capillary refill takes less than 2 seconds. Neurological: Mental Status: He is alert and oriented to person, place, and time. Psychiatric: Behavior: Behavior normal. Care Team Providers: Patient Care Team: Lamin Ricci MD as PCP - General (Family Medicine) Lamin Ricci MD as PCP - [facility] Attributed PCP Primary Pharmacy/DME suppliers: [facility] - [place], [place] - [address] [facility] [id number] Detection of Cognitive Impairment: The patient does not have cognitive impairment based on direct observation, discussion with patientor family, or review of medical records. Health Maintenance: Health Maintenance Topics with due status: Overdue Topic Date Due Regular Well Visit/Exam 1940 Zoster Vaccines 1992 Health Maintenance Topics with due status: Postponed Topic Postponed Until Pneumococcal (PCV13 & PPSV23) 65+ yrs 05/31/2020 (Originally 2007) Health Maintenance Topics with due status: Not Due Topic Last Completion Date DTaP/Tdap/Td Vaccine 12/15/2015 Fall Risk Assessment 05/31/2019 Depression Screening-PHQ 05/31/2019 Health Maintenance Topics with due status: Completed Topic Last Completion Date Influenza Vaccine 04/26/2019 Counseling and Referral of Preventative Services: Lifestyle Recommendations Improve Diet Advanced Directive Durable Power of Geospatial Information Technologist: Yes Living Will: Yes Assessment and Plan: Diagnoses and all orders for this visit: Medicare annual wellness visit, initial (Primary) Comments: check labs. Orders: - CBC with auto differential; Future - Comprehensive metabolic panel; Future - Lipid panel; Future - PSA screen; Future Chronic bilateral low back pain with bilateral sciatica Comments: condtoin chronic stable. refill meds. Orders: - oxyCODONE-acetaminophen (PERCOCET) 5-325 mg per tablet; Take 1 tablet by mouth every 6 (six) hours as needed for pain Acute non-recurrent maxillary sinusitis Comments: condtion acute. kenalog 40 mg, z pack medrol Orders: - triamcinolone (KENALOG) 40 mg/mL injection 40 mg - methylPREDNISolone (MEDROL DOSEPACK) 4 mg Dosepack; Take as directed on package. - azithromycin (ZITHROMAX) 250 mg tablet; Take 2 tabs (500 mg) by mouth today, than 1 daily for 4 days. Gastro-esophageal reflux disease without esophagitis Comments: condtion chrnic stbale. refill meds. Impacted cerumen of right ear Comments: condtoin acute. clean ear Orders: - Ear Cerumen Removal Patient here for annual Medicare wellness visit and for review of complete medical problem list. All the elements of the plan were completed as outlined by [facility]. A copy of the prevention plan was [...] of today's office visit. Lamin Ricci MD ITY ASSURANCE CLERK documented in this encounter Procedure Notes * Lamin Ricci MD - 05/31/2019 9:30 AM CSTAssociated Order(s): Ear Cerumen Removal Post-Procedure Diagnose(s): Impacted cerumen of right ear Ear Cerumen Removal Date/Time: 05/31/2019 10:27 AM Performed by: Lamin Ricci MD Authorized by: Lamin Ricci MD Consent Given by: Patient Site marked: the procedure site was marked Timeout: prior to procedure the correct patient, procedure, and site was verified Verbal consent obtained: Yes Written consent obtained: Yes Risks, alternatives, and patient questions discussed: Yes Preparation: Patient was prepped and draped in usual sterile fashion Preparation: Patient was prepped using a clean technique Location: R ear R ear cerumen impacted?: Yes R ear method of removal: Instrumentation and irrigation R ear instrumentation: Curette R ear magnification: Otoscope Right cerumen impaction. The right ear is irrigated with normal saline and a currette is used to remove the cerumen bolus intact. ITY ASSURANCE CLERK documented in this encounter Plan of Treatment Not on file documented as of this encounter Procedures Procedure Name Priority Date/Time Associated Diagnosis Comments MO REMOVAL IMPACTED CERUMEN INSTRUMENTATION UNILAT Routine 05/31/2019 9:30 AM QUALITY ASSURANCE CLERK Impacted cerumen of right ear documented in this encounter Results * MO REMOVAL IMPACTED CERUMEN INSTRUMENTATION UNILAT (05/31/2019 9:30 AM QUALITY ASSURANCE CLERK) Narrative Lamin Ricci MD - 05/31/2019 9:30 AM QUALITY ASSURANCE CLERK Lamin Ricci MD ? 05/31/2019 10:28 AM Ear Cerumen Removal Date/Time: 05/31/2019 10:27 AM Performed by: Lamin Ricci MD Authorized by: Lamin Ricci MD Consent Given by: ??Patient Site marked: the procedure site was marked ?? Timeout: prior to procedure the correct patient, procedure, and site was verified ?? Verbal consent obtained: Yes ?? Written consent obtained: Yes ?? Risks, alternatives, and patient questions discussed: Yes ?? Preparation: Patient was prepped and draped in usual sterile fashion ?? Preparation: Patient was prepped using a clean technique ?? Location: ??R ear R ear cerumen impacted?: Yes ?? R ear method of removal: ??Instrumentation and irrigation R ear instrumentation: ??Curette R ear magnification: ??Otoscope Right cerumen impaction. ??The right ear is irrigated with normal saline and a currette is used to remove the cerumen bolus intact. us Lamin Ricci MD IN CLINIC/BEDSIDE ORDERABLES Fi nal Result documented in this encounter Visit Diagnoses Diagnosis Medicare annual wellness visit, initial- Primary Chronic bilateral low back pain with bilateral sciatica Acute non-recurrent maxillary sinusitis Gastro-esophageal reflux disease without esophagitis Impacted cerumen of right ear Impacted cerumen documented in this encounter Administered Medications Inactive Administered Medications - up to 3 most recent administrations Medication Order MAR Action Action Date Dose Rate Site triamcinolone (KENALOG) 40 mg/mL injection 40 mg 40 mg, intramuscular, Once, On Wed05/31/19 at 1115, For 1 doseIndications:Acute non-recurrent maxillary sinusitis Given 05/31/2019 10:34 AM QUALITY ASSURANCE CLERK 40 mg Other (Comment) documented in this encounter Discontinued Medications Medication Sig Discontinue Reason Start Date End Da te azithromycin (ZITHROMAX) 250 mg tabletIndications:Acute non-recurrent frontal sinusitis Take 2 tabs (500 mg) by mouth today, than 1 daily for 4 days. 01/16/2019 05/31/2019 methylPREDNISolone (MEDROL DOSEPACK) 4 mg DosepackIndications:Acu te non-recurrent frontal sinusitis Take as directed on package. Therapy completed 01/16/2019 05/31/2019 oxyCODONE-acetaminophen (PERCOCET) 5-325 mg per tabletIndications:Chron ic bilateral low back pain with bilateral sciatica Take 1 tablet by mouth every 6 (six) hours as needed for pain Reorder 04/14/2019 05/31/2019 documented as of this encounter Orders Lab Orders Without Results Count Last Ordered D ate First Ordered Date CBC WITH AUTO DIFFERENTIAL 1 05/31/2019 COMPREHENSIVE METABOLIC PANEL 1 05/31/2019 LIPID PANEL 1 05/31/2019 PSA SCREEN 1 05/31/2019 documented in this encounter Care Teams Analyst Market Intelligence Relationship Specialty Start Date End Date Lamin Ricci MD PCP - General Family Medicine 10/07/18 07/09/22 documented as of this encounter
--- OUTSIDE RECORDS SUMMARY | 2024-08-07 02:27 | XMS_ITS | Encounter Summary ---
Author Organization 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
--- OUTSIDE RECORDS SUMMARY | 2024-08-07 02:27 | XMS_ITS | Encounter Summary ---
Author Organization [facility] Healthcare Address [address] [place] [address] Care Team Providers Care [employer] Law Clerk Name Role Phone Lamin Ricci MD Primary Care Provider [phone] Encounter Details Date Type Department Care Team (Late st Contact Info) Description 02/10/2019 11:01 AM CDT - 02/10/2019 2:43 PM CDT Hospital Encounter [facility] Lamin Mcgraw MD [address] [place] [address] Discharge Disposition: Discharge to home or self [...] on file Legal Sex Male 8:20 PM LOG GETTER Gender Identity Male 03/24/2021 7:53 PM CDT Sexual Orientation Straight 03/24/2021 7: 53 PM CDT documented as of this encounter Last Filed Vital Signs Vital Sign Reading Time Taken Comments Blood Pressure 168/67 02/10/2019 12:59 PM CDT Pulse 67 02/10/2019 12:59 PM CDT Temperature 36.4 ??C (97.6 ??F) 02/10/2019 12:59 PM C DT Respiratory Rate - - Oxygen Saturation 98% 02/10/2019 12:59 PM CDT Inhaled Oxygen Concentration - - Weight 77.6 kg (171 lb) 02/10/2019 12:59 PM CDT Height 177.8 cm (5' 10 ) 02/10/2019 12:59 PM CDT Body Mass Index 24.54 02/10/2019 12:59 PM CDT documented in this encounter Medications at Time of Discharge aspirin-calcium carbonate 81 mg-300 mg calcium(777 mg) tablet Take 81 mg by mouth daily 03/10/2016 3 atorvastatin (LIPITOR) 20 mg tablet TAKE ONE TABLET DAILY 90 tablet 3 11/02/2018 0 azithromycin (ZITHROMAX) 250 mg tabletIndication s:Acute non-recurrent frontal sinusitis Take 2 tabs (500 mg) by mouth today, than 1 daily for 4 days. 6 tablet 01/16/2019 9 calcium-magnesiu m-zinc 333-133-5 mg tablet Take 1,200 mg by mouth daily 03/10/2016 3 cholecalciferol (VITAMIN D-3) 1,000 unit capsule Take 1,200 Units by mouth daily 03/10/2016 3 cranberry extract 200 mg capsule Take 2 capsules by mouth 3 (three) times a day 03/10/[address] (VOLTAREN) 75 mg EC tablet Take 75 mg by mouth 2 (two) times a day 10/04/2018 0 finasteride (PROSCAR) 5 mg tablet Take 1 tablet by mouth daily 10/06/2018 3 ketoconazole (NIZORAL) 2 % cream APPLY TWICE DAILY TO GROIN AND BUTTOCK RASH FOR 4 WEEKS 2 11/19/2018 1 lecithin 1,200 mg capsule Take 1 capsule by mouth 2 (two) times a day 4 methylPREDNISolo ne (MEDROL DOSEPACK) 4 mg DosepackIndicati ons:Acute non-recurrent frontal sinusitis Take as directed on package. 21 tablet 01/16/2019 9 naloxegol (MOVANTIK) 25 mg tabletIndication s:Constipation due to opioid therapy Take 1 tablet (25 mg total) by mouth daily 12/19/2018 9 omega 3-khy-gpl-fish oil 360-1,200 mg capsule,delayed release(DR/EC) Take 1 capsule by mouth daily 03/10/2016 4 omeprazole (PriLOSEC) 20 mg capsule TAKE 1 CAPSULE DAILY 90 capsule 3 11/18/2018 0 oxyCODONE-acetam inophen (PERCOCET) 5-325 mg per tabletIndication s:Chronic bilateral low back pain with bilateral sciatica Take 1 tablet by mouth every 6 (six) hours as needed for pain 90 tablet 01/04/2019 9 peg 400-propylene glycol (SYSTANE) 0.4-0.3 % ophthalmic solution Administer 1 drop into both eyes as needed 4 phenylephrine (RENETTA-SYNEPHRINE) 1 % spray,non-aeroso l 2-3 sprays every 4 (four) hours as needed 3 selenium 200 mcg tablet Take 1 tablet by mouth daily 3 tamsulosin (FLOMAX) 0.4 mg extended release capsule Take 0.4 mg by mouth daily 08/19/2018 3 triamcinolone (KENALOG) 0.1 % cream 1 application 2 (two) times a day 3 VENTOLIN HFA 90 mcg/actuation inhaler Inhale 2 puffs every 4 (four) hours as needed for wheezing or shortness of breath 08/04/2018 0 vitamin b complex (Vitamins B Complex) tablet Take 1 tablet by mouth daily 4 documented as of this encounter Discharge Disposition Disposition Code Departure Means Destination Discharge to home or self care documented in this encounter Plan of Treatment Not on file documented as of this encounter Procedures Procedure Name Priority Date/Time Associated Diagnosis Comments PROCEDURE - RESULT 02/10/2019 12 :00 AM CDT documented in this encounter Results * PROCEDURE - RESULT (02/10/2019 12:00 AM CDT) Narrative 02/10/2019 12:00 AM CDT Ordered by an unspecified provider. us Historical Provider Final Res ult documented in this encounter Visit Diagnoses Not on filedocumented in this encounter Care Teams [employer] Law Clerk Relationship Specialty Start Date End Date Lamin Ricci MD PCP - General Family Medicine 10/07/18 07/09/22 documented as of this encounter
--- OUTSIDE RECORDS SUMMARY | 2024-08-07 02:27 | XMS_ITS | Encounter Summary ---
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
--- OUTSIDE RECORDS SUMMARY | 2024-08-07 02:27 | XMS_ITS | Encounter Summary ---
Author Organization [facility] Address [address] [place] [address] Care Team Providers Care Die Maker Name Role Phone Lamin Ricci MD Primary Care Provider Encounter Details Date Type Department Care Team (Late st Contact Info) Description 06/05/2020 Orders Only [facility] Family Medicine [address] [place] [address] Lamin Ricci MD [address] [place] [address] [address] [place] [address] Social History Tobacco Use Types Packs/Day Years [...] and Family Twice a week 05/31/2019 Attends [employer] Services Never 05/31 Active Member of [employer]s [...] staff should administer the PHQ-9) 0 06/03/2020 [facility] - [...] on file Legal Sex Male 8:20 PM JUNIOR MEDIA BUYER Gender Identity Male 03/24/2021 7:53 PM CDT Sexual Orientation Straight 03/24/2021 7: 53 PM CDT Occupation Industry Job Start Date Job End Date retired Not on file Not on file Not on file documented as of this encounter Plan of Treatment Not on file documented as of this encounter Procedures Procedure Name Priority Date/Time Associated Diagnosis Comments PSA SCREEN Routine 06/05/2020 8:16 AM JUNIOR MEDIA BUYER CBC WITH AUTO DIFFERENTIAL Routine 06/05/2020 8:16 AM JUNIOR MEDIA BUYER LIPID PANEL Routine 06/05/2020 8:16 AM JUNIOR MEDIA BUYER COMPREHENSIVE METABOLIC PANEL Routine 06/05/2020 8:16 AM JUNIOR MEDIA BUYER documented in this encounter Results * PSA screen (06/05/2020 8:16 AM JUNIOR MEDIA BUYER) PSA <0.1 < OR = 4.0 ng/mL [facility] Comment: The total PSA value from this assay system is standardized against the WHO standard. The test result will be approximately 20% lower when compared to the equimolar-standardized total PSA ([place]). Comparison of serial PSA results should be interpreted with this fact in mind. This test was performed using the Siemens chemiluminescent method. Values obtained from different assay methods cannot be used interchangeably. PSA levels, regardless of value, should not be interpreted as absolute evidence of the presence or absence of disease. 06/05/2020 8:16 AM JUNIOR MEDIA BUYER 06/05/2020 8:26 AM JUNIOR MEDIA BUYER Narrative [facility] - 06/06/2020 4:51 AM JUNIOR MEDIA BUYER FASTING:YES FASTING: YES us Lamin Ricci MD LAB BLOOD ORDERABLES Final Resu lt [facility] [address] [place] [address] * (ABNORMAL) Comprehensive metabolic panel (06/05/2020 8:16 AM JUNIOR MEDIA BUYER) Glucose 105(H) 65 - 99 mg/dL [facility] Comment: ? Fasting reference interval For someone without known diabetes, a glucose value between 100 and 125 mg/dL is consistent with prediabetes and should be confirmed with a follow-up test. BUN 22 7 - 25 mg/dL [facility] Creatinine 0.83 0.70 - 1.18 mg/dL [facility] Comment: For patients >49 years of age, the reference limit for Creatinine is approximately 13% higher for people identified as -[place]. eGFR NON-AFR. SPANISH 84 > OR = 60 mL/min/1 .73m2 [facility] EGFR 98 > OR = 60 mL/min/1 .73m2 [facility] BUN/creat ratio NOT APPLICABLE 6 - 22 (calc) [facility] Sodium 141 135 - 146 mmol/L [facility] Potassium, pl 4.7 3.5 - 5.3 mmol/L [facility] Chloride 107 98 - 110 mmol/L [facility] CO2 28 20 - 32 mmol/L [facility] Calcium 9.7 8.6 - 10.3 mg/dL [facility] Protein, sr 6.6 6.1 - 8.1 g/dL [facility] Albumin 4.3 3.6 - 5.1 g/dL [facility] GLOBULIN 2.3 1.9 - 3.7 g/dL (calc) [facility] Alb/glob ratio 1.9 1.0 - 2.5 (calc) [facility] Bilirubin, total 0.7 0.2 - 1.2 mg/dL [facility] Alk phos 60 35 - 144 U/L [facility] AST 22 10 - 35 U/L [facility] ALT (SGPT) 24 9 - 46 U/L [facility] 06/05/2020 8:16 AM JUNIOR MEDIA BUYER 06/05/2020 8:26 AM JUNIOR MEDIA BUYER Narrative [facility] - 06/06/2020 4:51 AM JUNIOR MEDIA BUYER FASTING:YES FASTING: YES us Lamin Ricci MD LAB BLOOD ORDERABLES Final Resu lt [facility] [address] [place] [address] * (ABNORMAL) Lipid panel (06/05/2020 8:16 AM JUNIOR MEDIA BUYER) Cholesterol 189 <200 mg/dL [facility] HDL 39(L) > OR = 40 mg/dL [facility] Triglycerides 151(H) <150 mg/dL [facility] LDL 124(H) mg/dL (calc) [facility] Comment: Reference [...] LDL-C. Harmeet SS et al. BECCA. 2013;310(19): 0546-2695 (http://education.[employer].Supply Vision/faq/IFR919) Chol/HDL ratio 4.8 <5.0 (calc) [facility] Non-HDL, (LDL+VLDL) 150(H) <130 mg/dL (calc) [facility] Comment: For patients with diabetes plus 1 major ASCVD risk factor, treating to a non-HDL-C goal of <100 mg/dL (LDL-C of <70 mg/dL) is considered a therapeutic option. 06/05/2020 8:16 AM JUNIOR MEDIA BUYER 06/05/2020 8:26 AM JUNIOR MEDIA BUYER Narrative [facility] - 06/06/2020 4:51 AM JUNIOR MEDIA BUYER FASTING:YES FASTING: YES us Lamin Ricci MD LAB BLOOD ORDERABLES Final Resu lt [facility] [address] [place] [address] * (ABNORMAL) CBC with auto differential (06/05/2020 8:16 AM JUNIOR MEDIA BUYER) WBC 4.4 3.8 - 10.8 Thousand/u L [facility] RBC, POC 4.17(L) 4.20 - 5.80 Million/uL [facility] Hgb 12.6(L) 13.2 - 17.1 g/dL [facility] Hct 36.6(L) 38.5 - 50.0 % [facility] MCV 87.8 80.0 - 100.0 fL [facility] MCH 30.2 27.0 - 33.0 pg [facility] MCHC 34.4 32.0 - 36.0 g/dL [facility] Rdw 13.8 11.0 - 15.0 % [facility] Platelets 207 140 - 400 Thousand/u L [facility] MPV 10.3 7.5 - 12.5 fL [facility] Neutrophils, abs 2,754 1,500 - 7,800 cells/uL [facility] Lymphocytes, abs 986 850 - 3,900 cells/uL [facility] Monocyte abs 370 200 - 950 cells/uL [facility] Eosinophils, abs 220 15 - 500 cells/uL [facility] Basophils, abs 70 0 - 200 cells/uL [facility] Neutrophils 62.6 % [facility] Lymphocyte pct 22.4 % [facility] Monocytes 8.4 % [facility] Eosinophils 5.0 % [facility] Basophils 1.6 % [facility] 06/05/2020 8:16 AM JUNIOR MEDIA BUYER 06/05/2020 8:26 AM JUNIOR MEDIA BUYER Narrative [facility] - 06/06/2020 4:51 AM JUNIOR MEDIA BUYER FASTING:YES FASTING: YES us Lamin Ricci MD LAB BLOOD ORDERABLES Final Resu lt Performing Organization Address City/State/[facility] Co de Phone Number [facility] [address] [place] [address] documented in this encounter Visit Diagnoses Not on filedocumented in this encounter Care Teams Die Maker Relationship Specialty Start Date End Date Lamin Ricci MD PCP - General Family Medicine 10/07/18 07/09/22 documented as of this encounter
--- OUTSIDE RECORDS SUMMARY | 2024-08-07 02:27 | XMS_ITS | Encounter Summary ---
Author Organization [facility] Address [address] [place] [address] Care Team Providers Care Contract Negotiator Name Role Phone Lamin Ricci MD Primary Care Provider [phone] Reason for Visit * Reason Comments Follow-up back pain Encounter Details Date Type Department Care Team ([facility] st Contact Info) Description 08/06/2020 7:45 AM LOCK MAINTENANCE SUPERVISOR Office Visit [facility] Family Medicine [address] [place] [address] Lamin Ricci MD [address] [place] [address] [address] [place] [address] Acute non-recurrent maxillary sinusitis (Primary Dx); Gastroesophageal reflux disease with esophagitis without hemorrhage; Hypercholesterolemia; Primary insomnia; Chronic bilateral low back pain with bilateral sciatica; Vitamin D deficiency Social History Tobacco Use [...] staff should administer the PHQ-9) 0 06/03/2020 [facility] [place] of Occupat ional Health - Occupational Stress [...] on file Legal Sex Male 8:20 PM LOCK MAINTENANCE SUPERVISOR Gender Identity Male 03/24/2021 7:53 PM CDT Sexual Orientation Straight 03/24/2021 7: 53 PM CDT Occupation Industry Job Start Date Job End Date retired Not on file Not on file Not on file documented as of this encounter Last Filed Vital Signs Vital Sign Reading Time Taken Comments Blood Pressure 138/70 08/06/2020 7:19 AM LOCK MAINTENANCE SUPERVISOR Pulse 78 08/06/2020 7:19 AM LOCK MAINTENANCE SUPERVISOR Temperature - - Respiratory Rate 16 08/06/2020 7:19 AM LOCK MAINTENANCE SUPERVISOR Oxygen Saturation - - Inhaled Oxygen Concentration - - Weight 79.3 kg (174 lb 12.8 oz) 08/06/2020 7:19 AM LOCK MAINTENANCE SUPERVISOR Height 177.8 cm (5' 10 ) 08/06/2020 7:19 AM LOCK MAINTENANCE SUPERVISOR Body Mass Index 25.08 08/06/2020 7:19 AM LOCK MAINTENANCE SUPERVISOR documented in this encounter Ordered Prescriptions Prescription Sig Dispense Quantity Refills Last Filled Start Date End Date azithromycin (ZITHROMAX) 250 mg tabletIndications: Acute non-recurrent maxillary sinusitis Take 2 tabs (500 mg) by mouth today, than 1 daily for 4 days. 6 tablet 08/06/2020 1 methylPREDNISolone (MEDROL DOSEPACK) 4 mg DosepackIndication s:Acute non-recurrent maxillary sinusitis Take as directed on package. 21 tablet 08/06/2020 1 documented in this encounter Progress Notes * Lamin Ricci MD - 08/06/2020 7:45 AM CST Images from the original note were not included. Subjective/Objective Patient ID: Gulshan Johnston is a 80 y.o. male. Visit Date: 08/06/2020 Chief Complaint Follow-up (back pain) HPI Returns to the office for repeat evaluation. States that he continues to have the chronic lumbar back pain. States that he has been having some nasal congestion. The gerd is under control and the insomnia is under control. Taking his vit d daily. Review of Systems Constitutional: Negative for activity change. HENT: Positive for congestion and rhinorrhea. Eyes: Negative for visual disturbance. Respiratory: Negative [...] There is no abdominal tenderness. Musculoskeletal: Comments: ROM appropriate Skin: General: Skin is warm and dry. Capillary Refill: Capillary refill takes less than 2 seconds. Neurological: Mental Status: He is alert and oriented to person, place, and time. Psychiatric: Behavior: Behavior normal. Assessment/Plan Diagnoses and all orders for this visit: Acute non-recurrent maxillary sinusitis (J01.00) (Primary) Comments: conditoin acute. z pack and medrol dose pack. Gastroesophageal reflux disease with esophagitis without hemorrhage (K21.00) Comments: condition chronic stbael continue care Hypercholesterolemia (E78.00) Comments: condition chronci stbale continue care Primary insomnia (F51.01) Comments: conditoin chronic stabel continue care Chronic bilateral low back pain with bilateral sciatica (M54.42, M54.41, G89.29) Comments: condition chronic stable continue care Vitamin D deficiency (E55.9) Comments: condition chronic stbale continue vit d daily Lamin Ricci MD MAINTENANCE SUPERVISOR documented in this encounter Plan of Treatment Not on file documented as of this encounter Visit Diagnoses Diagnosis Acute non-recurrent maxillary sinusitis- Primary Gastroesophageal reflux disease with esophagitis without hemorrhage Hypercholesterolemia Pure hypercholesterolemia Primary insomnia Persistent disorder of initiating or maintaining 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
--- OUTSIDE RECORDS SUMMARY | 2024-08-07 02:27 | XMS_ITS | Encounter Summary ---
Author Organization [facility] Address [address] [place] [address] Care Team Providers Care Chair Installer Name Role Phone Lamin Ricci MD Primary Care Provider [phone] Encounter Details Date Type Department Care Team (Late st Contact Info) Description 03/24/2019 Telephone [facility] Family Medicine [address] [place] [address] Lamin Ricci MD [address] [place] [address] [address] [place] [address] Social History Tobacco Use Types Packs/Day Years Used Date Smoking Tobacco: Never Smokeless Tobacco: Never Alcohol Use Standard Drinks/Week Comments Not Currently 0 (1 standard drink = 0.6 oz pur e alcohol) AUDIT-C Answer Date Recorded Frequency of Alcohol Consumption Never 10/19/2018 Average Number of Drinks Not on file 019 Frequency of Binge Drinking Not on file 09/2018 PHQ-2 Answer Date Recorded PHQ-2 Score 0 03/09/2019 Sex and Gender Information Value Date Recorded Sex Assigned at Not on file Legal Sex Male 8:20 PM LOW VOLTAGE ELECTRICIAN Gender Identity Male 03/24/2021 7:53 PM CDT Sexual Orientation Straight 03/24/2021 7: 53 PM CDT documented as of this encounter Ordered Prescriptions Prescription Sig Dispense Quantity Refills Last Filled Start Date End Date amoxicillin (AMOXIL) 500 mg tablet/capsule Take 1 tablet/caps ule (500 mg total) by mouth 3 (three) times a day for 10 days 30 tablet/capsule 03/24/2019 04/03/2019 documented in this encounter Miscellaneous Notes * Telephone Encounter - Jennifer Melton RN - 03/24/2019 1:48 PM CDT Per jackie amoxicillin times 10 days * Telephone Encounter - Kervin Finn Jr., MA - 03/24/2019 10:15 AM CDT Pt states he is having nasal congestion and a cough. He would like us to call in an abx for him. [facility] [place] documented in this encounter Plan of Treatment Not on file documented as of this encounter Visit Diagnoses Not on filedocumented in this encounter Care Teams Chair Installer Relationship Specialty Start Date End Date Lamin Ricci MD PCP - General Family Medicine 10/07/18 07/09/22 documented as of this encounter
--- OUTSIDE RECORDS SUMMARY | 2024-08-07 02:27 | XMS_ITS | Encounter Summary ---
Author Organization [facility] Address [address] [place] [address] Care Team Providers Care Cloth Washer Operator Name Role Phone Lamin Ricci MD Primary Care Provider [phone] Encounter Details Date Type Department Care Team (Late st Contact Info) Description 01/11/[address] [facility] Family Medicine [address] [place] [address] Lamin Ricci MD [address] [place] [address] [address] [place] [address] Social History Tobacco Use Types Packs/Day Years [...] Answer Date Recorded PHQ-2 Score 0 03/09/2019 [facility] [place] of Occupat ional Health - Occupational Stress [...] on file Legal Sex Male 8:20 PM ASSEMBLER CAMPER Gender Identity Male 03/24/2021 7:53 PM CDT [...] Take as directed on package. 21 tablet 01/11/2020 0 documented in this encounter Miscellaneous Notes * Telephone Encounter - Sierra Fraire RN - 01/11/2020 9:26 AM CDT Ok per dr ricci * Telephone Encounter - Kervin Finn Jr., MA - 01/11/2020 9:19 AM CDT Pt states he is still having sinus issue and he would like us to refill his MDP is this ok. [facility] documented in this encounter Plan of Treatment Not on file documented as of this encounter Visit Diagnoses Not on filedocumented in this encounter Care Teams Cloth Washer Operator Relationship Specialty Start Date End Date Lamin Ricci MD PCP - General Family Medicine 10/07/18 07/09/22 documented as of this encounter
--- OUTSIDE RECORDS SUMMARY | 2024-08-07 02:27 | XMS_ITS | Encounter Summary ---
Author Organization [facility] Address [address] [place] [address] Care Team Providers Care Thermoforming Machine Operator Name Role Phone Lamin Ricci MD Primary Care Provider [phone] Reason for Visit * Reason Comments Hyperlipidemia Encounter Details Date Type Department Care Team ([facility] st Contact Info) Description 07/27/2019 7:30 AM SENIOR WATER/WASTEWATER ENGINEER Office Visit [facility] Family Medicine [address] [place] [address] Lamin Ricci MD [address] [place] [address] [address] [place] [address] Degenerative lumbar spinal stenosis (Primary Dx); Gastroesophageal reflux disease with esophagitis; Primary insomnia; Pure hypercholesterolemia; Encounter for immunization Social History Tobacco Use Types Packs/Day Years [...] Answer Date Recorded PHQ-2 Score 0 03/09/2019 [facility] [place] of Occupat ional Health - Occupational Stress [...] file Legal Sex Male 8:20 PM SENIOR WATER/WASTEWATER ENGINEER Gender Identity Male 03/24/2021 7:53 PM CDT Sexual Orientation Straight 03/24/2021 7: 53 PM CDT Occupation Industry Job Start Date Job End Date retired Not on file Not on file Not on file documented as of this encounter Last Filed Vital Signs Vital Sign Reading Time Taken Comments Blood Pressure 124/68 07/27/2019 7:48 AM SENIOR WATER/WASTEWATER ENGINEER Pulse 68 07/27/2019 7:48 AM SENIOR WATER/WASTEWATER ENGINEER Temperature 36.4 ??C (97.6 ??F) 07/27/2019 7:48 AM CS T Respiratory Rate 16 07/27/2019 7:48 AM SENIOR WATER/WASTEWATER ENGINEER Oxygen Saturation 98% 07/27/2019 7:48 AM SENIOR WATER/WASTEWATER ENGINEER Inhaled Oxygen Concentration - - Weight 77.1 kg (170 lb) 07/27/2019 7:48 AM SENIOR WATER/WASTEWATER ENGINEER Height 177.8 cm (5' 10 ) 07/27/2019 7:48 AM SENIOR WATER/WASTEWATER ENGINEER Body Mass Index 24.39 07/27/2019 7:48 AM SENIOR WATER/WASTEWATER ENGINEER documented in this encounter Progress Notes * Lamin Ricci MD - 07/27/2019 7:30 AM CST Subjective/Objective Patient ID: Gulshan Johnston is a 79 y.o. male. Visit Date: 07/27/2019 Chief Complaint Hyperlipidemia HPI Returns to the office for repeat evaluation. States that he is feeling good and taking the meds as directed. States that he is taking his meds as directed. The back pain is about the same and the gerd is under control. The bph is under control. Review of Systems [...] Degenerative lumbar spinal stenosis (M48.061) (Primary) Comments: condtoin chronic stable. refill meds. Gastroesophageal reflux disease with esophagitis (K21.0) Comments: condition chronic stbale. refill meds Primary insomnia (F51.01) Comments: condition chronic stbale. refill meds Pure hypercholesterolemia (E78.00) Comments: condoitn chronic stable. refill med.s Lamin Ricci MD OR WATER/WASTEWATER ENGINEER documented in this encounter Plan of Treatment Not on file documented as of this encounter Visit Diagnoses Diagnosis Degenerative lumbar spinal stenosis- Primary Spinal stenosis of lumbar region Gastroesophageal reflux disease with esophagitis Primary insomnia Persistent disorder of initiating or maintaining sleep Pure hypercholesterolemia Encounter for immunization documented in this encounter Orders Immunization/Injection Count Last Ordered Date First Ordered Date PNEUMOCOCCAL CONJUGATE VACCI NE 13-VALENT IM 1 07/27/2019 documented in this encounter Care Teams Thermoforming Machine Operator Relationship Specialty Start Date End Date Lamin Ricci MD PCP - General Family Medicine 10/07/18 07/09/22 documented as of this encounter
--- OUTSIDE RECORDS SUMMARY | 2024-08-07 02:27 | XMS_ITS | Encounter Summary ---
Author Organization [facility] Address [address] [place] [address] Care Team Providers Care Complaint Evaluation Officer Name Role Phone Lamin Ricci MD Primary Care Provider [phone] Reason for Visit * Reason Comments Medicare Wellness Encounter Details Date Type Department Care Team (Late st Contact Info) Description 06/03/2020 8:30 AM ACUTE CARE PHYSICIAN Office Visit [facility] Family Medicine [address] [place] [address] Lamin Ricci MD [address] [place] [address] [address] [place] [address] Encounter for subsequent annual wellness visit (AWV) in Medicare patient (Primary Dx); Chronic pain syndrome; Mild intermittent asthma, unspecified whether complicated; Degenerative lumbar spinal stenosis; Gastroesophageal reflux disease with esophagitis without hemorrhage; Pure hypercholesterolemia; Chronic pain syndrome Social History Tobacco Use [...] and Family Twice a week 05/31/2019 Attends Rastafari Services Never 05/31 Active Member of Clubs [...] staff should administer the PHQ-9) 0 06/03/2020 [facility] [place] of Occupat ional Health - Occupational Stress [...] on file Legal Sex Male 8:20 PM ACUTE CARE PHYSICIAN Gender Identity Male 03/24/2021 7:53 PM CDT Sexual Orientation Straight 03/24/2021 7: 53 PM CDT Occupation Industry Job Start Date Job End Date retired Not on file Not on file Not on file documented as of this encounter Last Filed Vital Signs Vital Sign Reading Time Taken Comments Blood Pressure 124/80 06/03/2020 8:13 AM ACUTE CARE PHYSICIAN Pulse 70 06/03/2020 8:13 AM ACUTE CARE PHYSICIAN Temperature 36.7 ??C (98.1 ??F) 06/03/2020 8:13 AM CS T Respiratory Rate 16 06/03/2020 8:13 AM ACUTE CARE PHYSICIAN Oxygen Saturation 98% 06/03/2020 8:13 AM ACUTE CARE PHYSICIAN Inhaled Oxygen Concentration - - Weight 77.8 kg (171 lb 9.6 oz) 06/03/2020 8:13 A M ACUTE CARE PHYSICIAN Height 177.8 cm (5' 10 ) 06/03/2020 8:13 AM ACUTE CARE PHYSICIAN Body Mass Index 24.62 06/03/2020 8:13 AM ACUTE CARE PHYSICIAN documented in this encounter Ordered Prescriptions Prescription Sig Dispense Quantity Refills Last Filled Start Date End Date oxyCODONE-acetamin ophen (PERCOCET) 5-325 mg per tabletIndications: Pain Take 1 tablet by mouth every 6 (six) hours as needed for pain Do not exceed 8 tablets per day. 90 tablet 06/03/[address] (VOLTAREN) 75 mg EC tabletIndications: Degenerative lumbar spinal stenosis Take 1 tablet (75 mg total) by mouth 2 (two) times a day 180 tablet 3 06/03/2020 1 documented in this encounter Progress Notes * Lamin Ricci MD - 06/03/2020 8:30 AM CST Images from the original note were not included. MEDICARE/MANAGED CARE ANNUAL WELLNESS VISIT Patient Name: Gulshan Johnston Date Of : 1940 Date Of Service: @[email or web address]@ Medicare Health Risk Assessment Basic Information In general, would you say your health is: Good Do you have an Advanced Directive (Living Will) and/or Durable Power of Magnetic Locater?: Yes - Please bring a copy to [...] No HPI: Returns to the office for subsequent medicare physical. States that he has been doing good and continues with the chronic lumbar back pain. The lipids are stable and the gerd is stable. The asthma isunder control. The insomnia and the eczema is under control. Taking his meds as directed. ROS: Review of Systems Constitutional: Negative for activity [...] ??? Intrinsic eczema ??? Prostate cancer (CMS/HCC) ??? Pure hypercholesterolemia ??? Lumbar back pain ??? Primary osteoarthritis of left shoulder ??? Dyspnea, unspecified Past Medical History: Diagnosis Date ??? GERD [...] - (Added by TW Conv) ? ? WA REMOVAL OF TONSILS,<12 Y/O Tonsillectomy - (Added [...] strain: Not hard at all ??? Food insecurity Worry: Never true Inability: Never true ??? Transportation needs Medical: No Non-medical: No Tobacco Use ??? Smoking status: Former Smoker Types: Pipe Quit date: 11/28/1979 Years since quittin.5 ??? Smokeless tobacco: Never Used Substance and Sexual Activity ??? Alcohol use: Not Currently Frequency: Never ??? Drug use: Never ??? Sexual activity: Defer Lifestyle ??? Physical activity Days per week: 7 days Minutes per session: 20 min ??? Stress: To some extent Relationships ??? Social connections Talks on phone: More than three times a week Gets together: Twice a week Attends jainism service: Never Active member of club or organization: No Attends meetings of clubs or organizations: Never Relationship status: ??? Intimate partner violence Fear of current or ex partner: No Emotionally abused: No Physically abused: No Forced sexual activity: No Other Topics Concern ??? Not on file Social History Narrative Marital History - Currently : (Added by TW Conv) Occupation: Retired (Added by TW Conv) Being A Social Drinker : (Added by TW Conv) Allergies: Allergies Allergen Reactions ??? Other Sneezing Seasonal allergies Medications: Current Outpatient Medications: ??? aspirin-calcium carbonate 81 mg-300 mg calcium(777 mg) tablet, Take 81 mg by mouth daily , Disp: , Rfl: ??? atorvastatin (LIPITOR) 20 mg tablet, Take 1 tablet (20 mg total) by mouth daily, Disp: 90 tablet, Rfl: 3 ??? dukrvdi-rshhtezrc-bvyl 333-133-5 mg tablet, Take 1,200 mg by [...] times a day, Disp: , Rfl: ??? naloxegol (MOVANTIK) 25 mg tablet, Take 1 tablet (25 mg total) by mouth daily, Disp: 30 tablet,Rfl: 6 ??? omeprazole (PriLOSEC) 20 mg capsule, Take 1 capsule (20 mg total) by mouth daily, Disp: 90 capsule, Rfl: 3 ??? oxyCODONE-acetaminophen (PERCOCET) 5-325 mg per tablet, Take 1 tablet by mouth every 6 (six) hours as needed for pain Do not exceed 8 tablets per day., Disp: 90 tablet, Rfl: 0 ??? peg 400-propylene glycol (SYSTANE) 0.4-0.3 % ophthalmic solution, Administer 1 drop into both eyes as needed, Disp: , Rfl: ??? tamsulosin (FLOMAX) 0.4 mg extended release capsule, Take 0.4 mg by mouth daily , Disp: , Rfl: ??? triamcinolone (KENALOG) 0.1 % cream, 1 application 2 (two) times a day, Disp: , Rfl: ??? VENTOLIN HFA 90 mcg/actuation inhaler, INHALE TWO PUFFS EVERY 4 HOURS NEEDED, Disp: 18 g, Rfl: 7 ??? vitamin b complex (Vitamins B Complex) tablet, Take 1 tablet by mouth daily , Disp: , Rfl: ??? vitamin E (AQUASOL E) 1,000 unit capsule, Take 1,200 Units by mouth daily, Disp: , Rfl: ??? omega 0-kio-dmz-fish oil (FISH OIL) 360-1,200 mg capsule,delayed release(DR/EC), Take 1 capsuleby mouth daily , Disp: , Rfl: ??? phenylephrine (RENETTA-SYNEPHRINE) 1 % spray,non-aerosol, 2-3 sprays every 4 (four) hours as needed, Disp: , Rfl: ??? selenium 200 mcg tablet, Take 1 tablet by mouth daily , Disp: , Rfl: Depression Screen: PHQ Screening Over the last [...] Hopeless: Not at all Vitals: Vitals BP 124/80 Pulse 70 Temp 36.7 ??C (98.1 ??F) (Oral) Resp 16 Ht 177.8 cm (5' 10 ) Wt 77.8 kg (171 lb 9.6 oz) SpO2 98% BMI 24.62 kg/m?? Body mass index is 24.62 kg/m??. Hearing and Vision Screening: Visual Acuity [...] - General (Family Medicine) Primary Pharmacy/DME suppliers: [id number] - [place], [place] - [address] [place] [address] Detection of Cognitive Impairment: The patient does not have cognitive impairment based on direct observation, discussion with patientor family, or review of medical records. Health Maintenance: Health Maintenance Topics with due status: Due On Topic Date Due Regular Well Visit/Exam 05/31/2020 Health Maintenance Topics with due status: Not Due Topic Last Completion Date DTaP/Tdap/Td Vaccine 12/15/2015 Pneumococcal (PCV13 & PPSV23) 65+ yrs 07/27/2019 Fall Risk Assessment 06/03/2020 Depression Screening-PHQ 06/03/2020 Health Maintenance Topics with due status: Completed Topic Last Completion Date Influenza Vaccine 04/08/2020 Zoster Vaccines 04/08/2020 Counseling and Referral of Preventative Services: Lifestyle Recommendations Improve Diet Advanced Directive Durable Power of Magnetic Locater: Yes Living Will: Yes Assessment and Plan: Diagnoses and all orders for this visit: Encounter for subsequent annual wellness visit (AWV) in Medicare patient (Primary) Comments: check labs. Chronic pain syndrome Comments: conditoin chronic stable refill meds. Mild intermittent asthma, unspecified whether complicated Comments: condition chronic stbale refill meds. Degenerative lumbar spinal stenosis Comments: condition chronic stbale refill meds. Gastroesophageal reflux disease with esophagitis without hemorrhage Comments: condition chronic stbale refil meds. Pure hypercholesterolemia Comments: conditon chronic sbtlae continue care Patient here for annual Medicare wellness visit [...] of today's office visit. Lamin Ricci MD E CARE PHYSICIAN documented in this encounter Plan of Treatment Scheduled Orders Name Type Priority Associated Diagnoses Orde r Schedule CBC with auto differential Lab Routine Encounter For Subsequent Annual Wellness Visit (Awv) In Medicare Patient Expected: 06/03/2020, Expires: 06/03/2021 Comprehensive metabolic panel Lab Routine Encounter For Subsequent Annual Wellness Visit (Awv) In Medicare Patient Expected: 06/03/2020, Expires: 06/03/2021 Lipid panel Lab Routine Encounter For Subsequent Annual Wellness Visit (Awv) In Medicare Patient Expected: 06/03/2020, Expires: 06/03/2021 PSA screen Lab Routine Encounter For Subsequent Annual Wellness Visit (Awv) In Medicare Patient Expected: 06/03/2020, Expires: 06/03/2021 documented as of this encounter Visit Diagnoses Diagnosis Encounter for subsequent annual wellness visit (AWV) in Medicare patient- Primary Chronic pain syndrome Mild intermittent asthma, unspecified whether complicated Degenerative lumbar spinal stenosis Spinal stenosis of lumbar region Gastroesophageal reflux disease with esophagitis without hemorrhage Pure hypercholesterolemia documented in this encounter Discontinued Medications Medication Sig Discontinue Reason Start Date End Da te diclofenac DR (VOLTAREN) 75 mg EC tablet Take 1 tablet (75 mg total) by mouth 2 (two) times a day Reorder 12/26/2019 06/03/2020 oxyCODONE-acetaminophen (PERCOCET) 5-325 mg per tabletIndications:Pain Take 1 tablet by mouth every 6 (six) hours as needed for pain Do not exceed 8 tablets per day. Reorder 05/01/2020 06/03/2020 documented as of this encounter Care Teams Complaint Evaluation Officer Relationship Specialty Start Date End Date Lamin Ricci MD PCP - General Family Medicine 10/07/18 07/09/22 documented as of this encounter
--- OUTSIDE RECORDS SUMMARY | 2024-08-07 02:27 | XMS_ITS | Encounter Summary ---
Author Organization [facility] Address [address] [place] [address] Care Team Providers Care Underwriting Internship Name Role Phone Lamin Ricci MD Primary Care Provider Encounter Details Date Type Department Care Team ([facility] st Contact Info) Description 05/31/2019 Telephone [facility] Family Medicine [address] [place] [address] Lamin Ricci MD [address] [place] [address] [address] [place] [address] Social History Tobacco Use Types Packs/Day Years [...] and Family Twice a week 05/31/2019 Attends Gnosticist Services Never 05/31 Active Member of Clubs [...] Answer Date Recorded PHQ-2 Score 0 03/09/2019 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 TEAM LEADER Gender Identity Male 03/24/2021 7:53 PM CDT Sexual Orientation Straight 03/24/2021 7: 53 PM CDT Occupation Industry Job Start Date Job End Date retired Not on file Not on file Not on file documented as of this encounter Miscellaneous Notes * Telephone Encounter - Sierra Fraire RN - 05/31/2019 11:23 AM CAFETERIA TEAM LEADER Labs sent to [employer] TEAM LEADER documented in this encounter Plan of Treatment Not on file documented as of this encounter Visit Diagnoses Not on filedocumented in this encounter Care Teams Underwriting Internship Relationship Specialty Start Date End Date Lamin Ricci MD PCP - General Family Medicine 10/07/18 07/09/22 documented as of this encounter
--- OUTSIDE RECORDS SUMMARY | 2024-08-07 02:27 | XMS_ITS | Encounter Summary ---
Author Organization [facility] Address [address] [place] [address] Care Team Providers Care Tnt Powder Worker Name Role Phone Lamin Ricci MD Primary Care Provider [phone] Reason for Visit * Reason Onset Date Comments CHANGE PHARMACY 12/12/2019 Encounter Details Date Type Department Care Team (Late st Contact Info) Description 12/12/2019 Telephone [facility] Family Medicine [address] [place] [address] Lamin Ricci MD [address] [place] [id number] CHANGE PHARMACY Social History Tobacco Use Types Packs/Day Years [...] and Family Twice a week 05/31/2019 Attends [employer] Never 05/31 Active Member of Clubs [...] Date Recorded PHQ-2 Score 0 03/09/2019 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 Wanted to let us know [facility] [place] [facility], so [facility] [place]. DOESN'T NEED ANY MEDICINE AT THIS TIME, JUST FYI PLEASE CHANGE IN OUR SYSTEM documented in this encounter Plan of Treatment Not on file documented as of this encounter Visit Diagnoses Not on filedocumented in this encounter Care Teams Tnt Powder Worker Relationship Specialty Start Date End Date Lamin Ricci MD PCP - General Family Medicine 10/07/18 07/09/22 documented as of this encounter
--- OUTSIDE RECORDS SUMMARY | 2024-08-07 02:27 | XMS_ITS | Encounter Summary ---
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
--- OUTSIDE RECORDS SUMMARY | 2024-08-07 02:27 | XMS_ITS | Encounter Summary ---
Author Organization [facility] Address [address] [place] [address] Care Team Providers Care Graduate Student Name Role Phone Lamin Ricci MD Primary Care Provider [phone] Encounter Details Date Type Department Care Team (Late st Contact Info) Description 05/31/2019 Orders Only [facility] Family Medicine [address] [place] [address] Sierra Fraire RN Social History Tobacco Use Types Packs/Day Years [...] Answer Date Recorded PHQ-2 Score 0 03/09/2019 [facility] [place] of Occupat ional Health - Occupational Stress [...] on file Legal 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
--- OUTSIDE RECORDS SUMMARY | 2024-08-07 02:27 | XMS_ITS | Encounter Summary ---
Author Organization [facility] Address [address] [place] [address] Care Team Providers Care Occupational Nurse Name Role Phone Lamin Ricci MD Primary Care Provider [phone] Reason for Visit * Reason Comments Follow-up sinusitis, back pain , no improvement Encounter Details Date Type Department Care Team ([facility] st Contact Info) Description 09/17/2020 9:00 AM HOURLY SHIFT Office Visit [facility] Family Medicine [address] [place] [address] Lamin Ricci MD [facility] [address] [place] [address] [address] [place] [address] Acute non-recurrent maxillary sinusitis (Primary Dx); Degenerative lumbar spinal stenosis; Gastroesophageal reflux disease with esophagitis without hemorrhage; Mild intermittent asthma, unspecified whether complicated; Benign prostatic hyperplasia without lower urinary tract symptoms; Elevated lipids; Chronic pain syndrome Social History Tobacco Use [...] staff should administer the PHQ-9) 0 06/03/2020 [employer] of Occupat ional Health - [...] on file Legal Sex Male 8:20 PM HOURLY SHIFT Gender Identity Male 03/24/2021 7:53 PM CDT Sexual Orientation Straight 03/24/2021 7: 53 PM CDT Occupation Industry Job Start Date Job End Date retired Not on file Not on file Not on file documented as of this encounter Last Filed Vital Signs Vital Sign Reading Time Taken Comments Blood Pressure 140/80 09/17/2020 9:04 AM HOURLY SHIFT Pulse 67 09/17/2020 9:04 AM HOURLY SHIFT Temperature 36.8 ??C (98.3 ??F) 09/17/2020 9:04 AM CS T Respiratory Rate 18 09/17/2020 9:04 AM HOURLY SHIFT Oxygen Saturation 98% 09/17/2020 9:04 AM HOURLY SHIFT Inhaled Oxygen Concentration - - Weight 75.8 kg (167 lb) 09/17/2020 9:04 AM HOURLY SHIFT Height 177.8 cm (5' 10 ) 09/17/2020 9:04 AM HOURLY SHIFT Body Mass Index 23.96 09/17/2020 9:04 AM HOURLY SHIFT documented in this encounter Ordered Prescriptions Prescription Sig Dispense Quantity Refills Last Filled Start Date End Date oxyCODONE-acetamin ophen (PERCOCET) 5-325 mg per tabletIndications: Pain Take 1 tablet by mouth every 6 (six) hours as needed for pain Do not exceed 8 tablets per day. 90 tablet 09/17/2020 1 cefuroxime (CEFTIN) 250 mg tabletIndications: Acute non-recurrent maxillary sinusitis Take 1 tablet (250 mg total) by mouth 2 (two) times a day 20 tablet 09/17/2020 1 methylPREDNISolone (MEDROL DOSEPACK) 4 mg DosepackIndication s:Acute non-recurrent maxillary sinusitis Take as directed on package. 21 tablet 09/17/2020 1 documented in this encounter Progress Notes * Lamin Ricci MD - 09/17/2020 9:00 AM CST Images from the original note were not included. Subjective/Objective Patient ID: Gulshan Johnston is a 80 y.o. male. Visit Date: 09/17/2020 Chief Complaint Follow-up (sinusitis, back pain, no improvement) HPI Returns to the office for repeat evaluation. States that he has sinus drainage and congestion and the cough and congestion. The lumbar back pain continues. The lipoids are under control and the bph is under control. The htn is under control. Taking his vit d is under control. Review of Systems Constitutional: [...] Cervical back: Neck supple. Comments: Lumbar back pack Skin: General: Skin is warm and dry. Capillary Refill: Capillary refill takes less than 2 seconds. Neurological: Mental Status: He is alert and oriented to person, place, and time. Psychiatric: Behavior: Behavior normal. Assessment/Plan Diagnoses and all orders for this visit: Acute non-recurrent maxillary sinusitis (J01.00) (Primary) Comments: conditoin acute. kenalog 40 mg, rocephin, ceftin medrol dose pack Orders: - triamcinolone (KENALOG) 40 mg/mL injection 40 mg; Inject 1 mL (40 mg total) into the muscle as instructed once - cefTRIAXone (ROCEPHIN) 350 mg/mL intramuscular injection 1,000 mg; Inject 2.85 mL (1,000 mg total) into the muscle as instructed daily Degenerative lumbar spinal stenosis (M48.061) Comments: conditon chronic stable refill pain meds. Gastroesophageal reflux disease with esophagitis without hemorrhage (K21.00) Comments: conditon chronic stblae refill the prilosec Mild intermittent asthma, unspecified whether complicated (J45.20) Comments: conditoin chronic stbale continue the ventolin prn. Benign prostatic hyperplasia without lower urinary tract symptoms (N40.0) Comments: condition chronic stblae refill hte proscar and the flomax Elevated lipids (E78.5) Comments: condition chronic stbale refill wallace lipitor Lamni Ricci MD LY SHIFT documented in this encounter Plan of Treatment Not on file documented as of this encounter Visit Diagnoses Diagnosis Acute non-recurrent maxillary sinusitis- Primary Degenerative lumbar spinal stenosis Spinal stenosis of lumbar region Gastroesophageal reflux disease with esophagitis without hemorrhage Mild intermittent asthma, unspecified whether complicated Benign prostatic hyperplasia without lower urinary tract symptoms Elevated lipids Chronic pain syndrome documented in this encounter Administered Medications Inactive Administered Medications - up to 3 most recent administrations Medication Order MAR Action Action Date Dose Rate Site cefTRIAXone (ROCEPHIN) 350 mg/mL intramuscular injection 1,000 mg 1,000 mg, intramuscular, Every 24 hours scheduled, First dose on Wed09/17/20 at 1030, Dilute vial with 2.1 mL of sterile water for a concentration of 350 mg/mL., Indications: sinusitisIndications:sinus itis Given 09/17/2020 9:55 AM HOURLY SHIFT 1,000 mg Other (Comment) triamcinolone (KENALOG) 40 mg/mL injection 40 mg 40 mg, intramuscular, Once, On Wed09/17/20 at 1030, For 1 doseIndications:Acute non-recurrent maxillary sinusitis Given 09/17/2020 9:55 AM HOURLY SHIFT 40 mg Other (Comment) documented in this encounter Discontinued Medications Medication Sig Discontinue Reason Start Date End Da te azithromycin (ZITHROMAX) 250 mg tabletIndications:Acute non-recurrent maxillary sinusitis Take 2 tabs (500 mg) by mouth today, than 1 daily for 4 days. Therapy completed 08/06/2020 09/17/2020 methylPREDNISolone (MEDROL DOSEPACK) 4 mg DosepackIndications:Acu te non-recurrent maxillary sinusitis Take as directed on package. Therapy completed 08/06/2020 09/17/2020 oxyCODONE-acetaminophen (PERCOCET) 5-325 mg per tabletIndications:Pain Take 1 tablet by mouth every 6 (six) hours as needed for pain Do not exceed 8 tablets per day. Reorder 08/28/2020 09/17/2020 documented as of this encounter Care Teams Occupational Nurse Relationship Specialty Start Date End Date Lamin Ricci MD PCP - General Family Medicine 10/07/18 07/09/22 documented as of this encounter
--- OUTSIDE RECORDS SUMMARY | 2024-08-07 02:27 | XMS_ITS | Encounter Summary ---
Author Organization [facility] Address [address] [place] [address] Care Team Providers Care Client Professional Name Role Phone Lamin Ricci MD Primary Care Provider [phone] Encounter Details Date Type Department Care Team (Late st Contact Info) Description 08/30/2020 8:00 AM THEATRICAL PERFORMER Immunization [address] [address] Encounter for vaccination (Primary Dx) Social History [...] staff should administer the PHQ-9) 0 06/03/2020 [facility] - [...] on file Legal Sex Male 8:20 PM THEATRICAL PERFORMER Gender Identity Male 03/24/2021 7:53 PM CDT [...] Date First Ordered Date PFIZER SARS-COV-2 VACCINE 2ND DOSE APPT 1 0 09/20/2020 PFIZER SARS-COV-2 VACCINE 1 08/30/2020 SARS-COV-2 VACCINE 1ST DOSE APPT 1 08/30/19 21 documented in this encounter Care Teams Client Professional Relationship Specialty Start Date End Date Lamin Ricci MD PCP - General Family Medicine 10/07/18 07/09/22 documented as of this encounter
--- OUTSIDE RECORDS SUMMARY | 2024-08-07 02:27 | XMS_ITS | Encounter Summary ---
Author Organization [facility] Address [address] [place] [address] Care Team Providers Care Carbon Paper Coating Machine Setter Name Role Phone Lamin Ricci MD Primary Care Provider [phone] Reason for Visit * Reason Comments Follow-up insomnia Med Refill Encounter Details Date Type Department Care Team (Latest Contact Info) Description 11/28/2019 12:45 PM CDT Telemedicine [facility] Family Medicine [address] [place] [address] Lamin Ricci MD [address] [place] [id number] Hypercholesterolemia (Primary Dx); Chronic bilateral low back pain with bilateral sciatica; Gastroesophageal reflux disease with esophagitis; Degenerative lumbar spinal stenosis; 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CMS/HCC); Benign prostatic hyperplasia without lower urinary tract [...] and Family Twice a week 05/31/2019 Attends [employer] Never 05/31 Active Member of Clubs [...] Answer Date Recorded PHQ-2 Score 0 03/09/2019 [facility] - Occupational Stress [...] Legal 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 Gender Identity Male 03/24/2021 7:53 PM CDT Sexual Orientation Straight 03/24/2021 7: 53 PM CDT Occupation Industry Job Start Date Job End Date retired Not on file Not on file Not on file documented as of this encounter Ordered Prescriptions Prescription Sig Dispense Quantity Refills Last Filled Start Date End Date oxyCODONE-acetamin ophen (Percocet) 5-325 mg per tabletIndications: Chronic bilateral low back pain with bilateral sciatica Take 1 tablet by mouth every 6 (six) hours as needed for pain 90 tablet 11/28/2019 12/26/2019 atorvastatin (LIPITOR) 20 mg tabletIndications: Hypercholesterolem ia Take 1 tablet (20 mg total) by mouth daily 90 tablet 3 11/28/2019 08/30/2020 documented in this encounter Progress Notes * Lamin Ricci MD - 11/28/2019 12:45 PM CDT Images from the original note were not included. Subjective/Objective Patient ID: Gulshan Johnston is a 79 y.o. male. Visit Date: 11/28/2019 Chief Complaint Follow-up (insomnia ) and Med Refill HPI Returns to the office for repeat evaluation. States that he is doing ok and is staying in the houseand feels ok. Continue to have the chronic pain and the meds are working. He is taking his vit d otc and the dclofenac is helping. The bph is under control. Continues with hte chronic lumbar back pain. Review of Systems Constitutional: Negative for activity [...] Negative for rash. Neurological: Negative for headaches. Neuropathy Psychiatric/Behavioral: Negative for sleep disturbance. The patient is not nervous/anxious. Insomnia Physical Exam Neurological: General: No focal deficit present. Mental Status: He is alert and oriented to person, place, and time. Psychiatric: Mood and Affect: Mood normal. Behavior: Behavior normal. Assessment/Plan Diagnoses and all orders for this visit: Hypercholesterolemia (E78.00) (Primary) Comments: condition chronic stable. refill meds. Orders: - atorvastatin (LIPITOR) 20 mg tablet; Take 1 tablet (20 mg total) by mouth daily Chronic bilateral low back pain with bilateral sciatica (M54.42, M54.41, G89.29) Comments: condtoin chronic stable. refill meds. Orders: - oxyCODONE-acetaminophen (Percocet) 5-325 mg per tablet; Take 1 tablet by mouth every 6 (six) hours as needed for pain Gastroesophageal reflux disease with esophagitis (K21.0) Comments: condition chronic stbael. refill meds. Degenerative lumbar spinal stenosis (M48.061) Comments: conditon chronic stabel refill meds 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CMS/HCC) (G63) Comments: conditino chronic stable. refil meds. Benign prostatic hyperplasia without lower urinary tract symptoms (N40.0) Comments: condition chronic stable. continue care This was a telemedicine visit with Gulshan henriquez which took place via Telephone. During the visit, I was located office and the patient was located home. The session started at 1310 and ended at 1322. The patient has been informed that the visit may not be secure and acknowledged the information. I have explained the option of participating in a telephone or video visit during the COVID-19 public health emergency to the patient. After being given an opportunity to ask questions about and discuss this type of visit, the patient verbally consented to proceeding with the telephone/video visit.The patient understands that this service replaces an office visit and they may be billed and/or responsible for any applicable copayments. MD Lamin Soares MD documented in this encounter Plan of Treatment Not on file documented as of this encounter Visit Diagnoses Diagnosis Hypercholesterolemia- Primary Pure hypercholesterolemia Chronic bilateral low back pain with bilateral sciatica Gastroesophageal reflux disease with esophagitis Degenerative lumbar spinal stenosis Spinal stenosis of lumbar region 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HCC) Benign prostatic hyperplasia without lower urinary tract symptoms documented in this encounter Discontinued Medications Medication Sig Discontinue Reason Start Date End Da te atorvastatin (LIPITOR) 20 mg tablet TAKE ONE TABLET DAILY Reorder 11/02/2018 11/28/2019 oxyCODONE-acetaminophen (Percocet) 5-325 mg per tabletIndications:Chroni c bilateral low back pain with bilateral sciatica Take 1 tablet by mouth every 6 (six) hours as needed for pain Reorder 10/09/2019 11/28/2019 documented as of this encounter Care Teams Carbon Paper Coating Machine Setter Relationship Specialty Start Date End Date Lamin Ricci MD PCP - General Family Medicine 10/07/18 07/09/22 documented as of this encounter
--- OUTSIDE RECORDS SUMMARY | 2024-08-07 02:28 | XMS_ITS | Encounter Summary ---
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
--- OUTSIDE RECORDS SUMMARY | 2024-08-07 02:28 | XMS_ITS | Encounter Summary ---
Author Organization [facility] Address [address] [place] [address] Care Team Providers Care Strategic Marketing Manager Name Role Phone Unavailable Primary Care Provider Unavailabl e Encounter Details Date Type Department Care Team (Late st Contact Info) Description 08/18/2017 7:11 AM BROADCAST PRODUCER Hospital Encounter [facility] OP Lamin Mcgraw MD [address] [place] [address] Malignant neoplasm with hormone sensitive status Social History Tobacco Use Types Packs/Day Years Used Date Smoking Tobacco: Never Sex and Gender Information Value Date Recorded Sex Assigned at Not on file Legal Sex Male 8:20 PM BROADCAST PRODUCER Gender Identity Male 03/24/2021 7:53 PM CDT Sexual Orientation Straight 03/24/2021 7: 53 PM CDT documented as of this encounter Medications at Time of Discharge aspirin-calcium carbonate 81 mg-300 mg calcium(777 mg) tablet Take 81 mg by mouth daily 03/10/2016 07/27/2022 calcium-magnesiu m-zinc 333-133-5 mg tablet Take 1,200 mg by mouth daily 03/10/2016 07/28/2022 cholecalciferol (VITAMIN D-3) 1,000 unit capsule Take 1,200 Units by mouth daily 03/10/2016 07/27/2022 cranberry extract 200 mg capsule Take 2 capsules by mouth 3 (three) times a day 03/10/2016 06/08/2024 omega 9-wgp-wph-fish oil 360-1,200 mg capsule,delayed release(DR/EC) Take 1 capsule by mouth daily 03/10/2016 05/19/2024 oxyCODONE-acetam inophen (PERCOCET) 5-325 mg per tablet 5-325 mg every 6 (six) hours as needed 11/11/2015 12/27/2018 documented as of this encounter Plan of Treatment Not on file documented as of this encounter Procedures Procedure Name Priority Date/Time Associated Diagnosis Comments CT ABDOMEN PELVIS W CONTRAST Routine 08/18/2017 12:00 AM BROADCAST PRODUCER NM BONE IMAGING WHOLE BODY Routine 08/18/2017 12:00 AM BROADCAST PRODUCER documented in this encounter Results * CT Abdomen Pelvis W Contrast (08/18/2017 12:00 AM BROADCAST PRODUCER) Anatomical Region Laterality Modality Body N/A Computed Tomogra phy 08/18/2017 Impressions 08/18/2017 11:16 AM BROADCAST PRODUCER ?? 1.No evidence of metastatic disease within the abdomen and pelvis. 2.Mildly enlarged prostate. 3.4.5 cm right renal cyst. 4.Uncomplicated colonic diverticulosis. 5.Lumbar spondylosis, severe at L3-4 and L5-S1. ??Previous laminectomy L3. 6.Atherosclerosis. 7.Hepatic steatosis. 08/18/2017 11:13 AM Joni Veras CH: CH D: ??08/18/2017 11:13 AM T: ??08/18/2017 11:13 AM Report ID: [id number] Reading Location: ??[id number] [EOD] Narrative 08/18/2017 11:16 AM BROADCAST PRODUCER EXAM DESCRIPTION: ??CT Abd/Pelvis W IV Contrast COMPLETED DATE/TIME: ??08/18/2017 8:51 am REASON FOR STUDY: ??New diagnosis of prostate cancer following recent biopsy, CT for staging and initial treatment strategy. COMPARISON: ??Concurrent bone scan. TECHNIQUE: ??CT scan of the abdomen and pelvis performed with intravenous and without oral contrast using helical scanning technique with dynamic intravenous contrast injection. Reconstructed coronal and sagittal MPR images reviewed. All images stored on PACS. 3D rendering was not performed. Automated exposure control was used as a dose optimization technique for this examination. CONTRAST TYPE/DOSE: ??100 ml of Optiray 350 contrast were intravenously injected at the right arm. FINDINGS: ABDOMEN/PELVIS: LOWER CHEST: Lung bases are predominantly clear. ??There is no pleural effusion. LIVER: No focal hepatic lesion is identified. ??Hepatic steatosis is noted. GALLBLADDER: No gallstones are seen. ??Gallbladder is decompressed. BILE DUCTS: No intrahepatic or extrahepatic ductal dilatation. SPLEEN: Unremarkable. PANCREAS: Unremarkable. ADRENALS: Normal. KIDNEYS/: No renal calculi or hydronephrosis is identified. ??In the mid right kidney there is a low-attenuation lesion 4.5 cm, 7 Hounsfield units, evidence of a cyst. ??No ureteral calculi are identified. ??Urinary bladder is unremarkable. GI: Mild to moderate sigmoid colon diverticulosis is identified. ??There is no evidence of acute diverticulitis. ??There is no bowel obstruction. ??No pneumatosis is seen. ??The appendix is normal. ??Stomach and duodenum are unremarkable. PERITONEUM/RETROPERITONEUM: Moderate atheromatous calcification of the abdominal aorta. ??Tiny retroperitoneal lymph nodes are not pathologically enlarged. ??No pathologic pelvic lymphadenopathy. ??No ascites or free air. REPRODUCTIVE: Prostate is mildly enlarged. VASCULATURE: No abdominal aortic aneurysm. ??Moderate atherosclerotic calcification of the abdominal aorta. MUSCULOSKELETAL: Bone windows show a sclerotic focus of the right sacral ala, 1.1 cm. ?? Degenerative changes are noted in the lumbar spine, moderate-severe at L3-4 and L5-S1. ??Evidence of laminectomy at L3. Procedure Note Provider, MD Yolanda - 12/04/2020 EXAM DESCRIPTION: CT Abd/Pelvis W IV Contrast COMPLETED DATE/TIME: 08/18/2017 8:51 am REASON FOR STUDY: New diagnosis of prostate cancer following recentbiopsy, CT for staging and initial treatment strategy. COMPARISON: Concurrent bone scan. TECHNIQUE: CT scan of the abdomen and pelvis performed with intravenousand without oral contrast using helical scanning technique with dynamic intravenous contrast injection. Reconstructed coronal and sagittal MPRimages reviewed. All images stored on PACS. 3D rendering was not performed. Automated exposure control was used as adose optimization technique for this examination. CONTRAST TYPE/DOSE: 100 ml of Optiray 350 contrast were intravenously injected at the right arm. FINDINGS: ABDOMEN/PELVIS: LOWER CHEST: Lung bases are predominantly clear. There is no pleuraleffusion. LIVER: No focal hepatic lesion is identified. Hepatic steatosis isnoted. GALLBLADDER: No gallstones are seen. Gallbladder is decompressed. BILE DUCTS: No intrahepatic or extrahepatic ductal dilatation. SPLEEN: Unremarkable. PANCREAS: Unremarkable. ADRENALS: Normal. KIDNEYS/: No renal calculi or hydronephrosis is identified. In the mid right kidney there is a low-attenuation lesion 4.5 cm, 7 Hounsfield units, evidence of a cyst. No ureteral calculi are identified. Urinary bladderis unremarkable. GI: Mild to moderate sigmoid colon diverticulosis is identified. There isno evidence of acute diverticulitis. There is no bowel obstruction. No pneumatosis is seen. The appendix is normal. Stomach and duodenum are unremarkable. PERITONEUM/RETROPERITONEUM: Moderate atheromatous calcification of the abdominal aorta. Tiny retroperitoneal lymph nodes are not pathologically enlarged. No pathologic pelvic lymphadenopathy. No ascites or freeair. REPRODUCTIVE: Prostate is mildly enlarged. VASCULATURE: No abdominal aortic aneurysm. Moderate atherosclerotic calcification ofthe abdominal aorta. MUSCULOSKELETAL: Bone windows show a sclerotic focus of the right sacral ala, 1.1 cm. Degenerative changes are noted in the lumbar spine, moderate-severe atL3-4 and L5-S1. Evidence of laminectomy at L3. IMPRESSION: 1.No evidence of metastatic disease within the abdomen and pelvis. 2.Mildly enlarged prostate. 3.4.5 cm right renal cyst. 4.Uncomplicated colonic diverticulosis. 5.Lumbar spondylosis, severe at L3-4 and L5-S1. Previous laminectomy L3. 6.Atherosclerosis. 7.Hepatic steatosis. 08/18/2017 11:13 AM Joni Veras CH: MERY Report ID: [id number] Reading Location: [id number] [EOD] Lamin Mcgraw MD IMG CT PROCEDURES Final R esult * NM Bone Imaging Whole Body (08/18/2017 12:00 AM BROADCAST PRODUCER) Anatomical Region Laterality Modality N/A Nuclear Medicine 08/18/2017 Impressions 08/18/2017 11:03 AM BROADCAST PRODUCER ??No evidence of osteoblastic metastatic disease. 08/18/2017 10:59 AM Joni Veras CH: CH D: ??08/18/2017 10:59 AM T: ??08/18/2017 10:59 AM Report ID: [id number] Reading Location: ??[id number] [EOD] Narrative 08/18/2017 11:03 AM BROADCAST PRODUCER EXAM DESCRIPTION: ??Bone Scan - Whole Body COMPLETED DATE/TIME: ??08/18/2017 10:33 am RADIOPHARMACEUTICAL: ??26.9 mCi Tc-99m HDP via a right hand IV site REASON FOR STUDY: ??New diagnosis of prostate cancer, bone scan for staging and treatment strategy, left hip pain for 8 months, osteoarthritis, lumbar spine surgery 2010. COMPARISON: ??No bone scan is available for comparison. The scintigraphic images were correlated with the following additional imaging studies: CT abdomen and pelvis obtained concurrently and MRI lumbar spine 03/26/2016. TECHNIQUE: ??Delayed whole-body scintigrams were obtained. FINDINGS: Radiotracer uptake on the left at L3-4 corresponds to arthropathy as seen on CT imaging. ??There is an S shaped thoracolumbar scoliotic curvature. ?? Arthritic pattern of uptake is noted most pronounced of the shoulders, left hip, bilateral knees and right midfoot. Procedure Note Provider, MD Yolanda - 12/04/2020 EXAM DESCRIPTION: Bone Scan - Whole Body COMPLETED DATE/TIME: 08/18/2017 10:33 am RADIOPHARMACEUTICAL: 26.9 mCi Tc-99m HDP via a right hand IV site REASON FOR STUDY: New diagnosis of prostate cancer, bone scan for stagingand treatment strategy, left hip pain for 8 months, osteoarthritis, lumbarspine surgery 2010. COMPARISON: No bone scan is available for comparison. The scintigraphic images were correlated with the following additionalimaging studies: CT abdomen and pelvis obtained concurrently and MRI lumbar spine 03/26/2016. TECHNIQUE: Delayed whole-body scintigrams were obtained. FINDINGS: Radiotracer uptake on the left at L3-4 corresponds to arthropathy as seenon CT imaging. There is an S shaped thoracolumbar scoliotic curvature. Arthritic pattern of uptake is noted most pronounced of the shoulders,left hip, bilateral knees and right midfoot. IMPRESSION: No evidence of osteoblastic metastatic disease. 08/18/2017 10:59 AM Joni Veras CH: MERY Report ID: [id number] Reading Location: [id number] [EOD] Lamin Mcgraw MD IMG NM PROCEDURES Final R esult documented in this encounter Visit Diagnoses Diagnosis Malignant neoplasm with hormone sensitive status documented in this encounter
--- OUTSIDE RECORDS SUMMARY | 2024-08-07 02:28 | XMS_ITS | Encounter Summary ---
Author Organization [facility] Facility Care Team Providers Care Clean Room Assembler Name Role Phone Unavailable Primary Care Provider Unavailabl e Encounter Details Date Type Department Care Team (Late st Contact Info) Description 12/29/2013 12:58 PM CDT Hospital Encounter [facility] Shaheed Constantino MD [address] [address] Brachial neuritis; Cervicobrachial syndrome; Other chronic pain; Asthma; Esophageal reflux; Pure hypercholesterolemia; Osteoarthrosis; Rosacea; Other acquired absence of organ; Other postprocedural states; Encounter for long-term (current) use of aspirin; Encounter for long-term (current) use of other medications Social History Tobacco Use Types Packs/Day Years Used Date Smoking Tobacco: Never Assessed Sex and Gender Information Value Date Recorded Sex Assigned at Not on file 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 Gender Identity Male 03/24/2021 7:53 PM CDT Sexual Orientation Straight 03/24/2021 7: 53 PM CDT documented as of this encounter Plan of Treatment Not on file documented as of this encounter Visit Diagnoses Diagnosis Brachial neuritis Brachial neuritis or radiculitis nos Cervicobrachial syndrome Cervicobrachial syndrome (diffuse) Other chronic pain Asthma Unspecified asthma Esophageal reflux Pure hypercholesterolemia Osteoarthrosis Osteoarthrosis, unspecified whether generalized or localized, unspecified site Rosacea Other acquired absence of organ Other postprocedural states Encounter for long-term (current) use of aspirin Encounter for long-term (current) use of other medications documented in this encounter
--- OUTSIDE RECORDS SUMMARY | 2024-08-07 02:28 | XMS_ITS | Encounter Summary ---
Author Organization [facility] Facility Care Team Providers Care Pondman Name Role Phone Unavailable Primary Care Provider Unavailabl e Encounter Details Date Type Department Care Team (Late st Contact Info) Description 08/23/2014 9:23 AM AERODYNAMICS TEACHER - 08/23/2014 11:59 PM AERODYNAMICS TEACHER Hospital Encounter [facility] Shaheed Constantino MD [address] [address] Other chronic pain; Brachial neuritis; Cervicobrachial syndrome; Osteoarthrosis Social History Tobacco Use Types Packs/Day Years Used Date Smoking Tobacco: Never Assessed Sex and Gender Information Value Date Recorded Sex Assigned at Not on file Legal Sex Male 8:20 PM AERODYNAMICS TEACHER Gender Identity Male 03/24/2021 7:53 PM CDT Sexual Orientation Straight 03/24/2021 7: 53 PM CDT documented as of this encounter Plan of Treatment Not on file documented as of this encounter Visit Diagnoses Diagnosis Other chronic pain Brachial neuritis Brachial neuritis or radiculitis nos Cervicobrachial syndrome Cervicobrachial syndrome (diffuse) Osteoarthrosis Osteoarthrosis, unspecified whether generalized or localized, unspecified site documented in this encounter
--- OUTSIDE RECORDS SUMMARY | 2024-08-07 02:28 | XMS_ITS | Encounter Summary ---
Author Organization [facility] Facility Care Team Providers Care Cooper Helper Name Role Phone Unavailable Primary Care Provider Unavailabl e Encounter Details Date Type Department Care Team (Latest Contact Info) Description 06/03/2010 12:01 AM CORRECTIONAL OFFICER SERGEANT - 06/05/2010 12:07 PM [facility] [place] [address] [place] [address] Displacement of lumbar intervertebral disc without myelopathy; Inadvertent durotomy; Disorders of meninges, not elsewhere classified; Pure hypercholesterolemia; Migraine; Lumbosacral spondylosis without myelopathy; Asthma; Accidental laceration or bleeding during surgery; Place of occurrence, residential institution Social History Tobacco Use Types Packs/Day Years Used Date Smoking Tobacco: Never Assessed Sex and Gender Information Value Date Recorded Sex Assigned at Not on file Legal Sex Male 8:20 PM CORRECTIONAL OFFICER SERGEANT Gender Identity Male 03/24/2021 7:53 PM CDT Sexual Orientation Straight 03/24/2021 7: 53 PM CDT documented as of this encounter Plan of Treatment Not on file documented as of this encounter Visit Diagnoses Diagnosis 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
--- OUTSIDE RECORDS SUMMARY | 2024-08-07 02:28 | XMS_ITS | Encounter Summary ---
Author Organization [facility] Facility Care Team Providers Care Crystallographer Name Role Phone Unavailable Primary Care Provider Unavailabl e Encounter Details Date Type Department Care Team (Late st Contact Info) Description 06/19/2016 1:26 PM NAVAL AIRCREWMAN HELICOPTER - 06/19/2016 11:59 PM NAVAL AIRCREWMAN HELICOPTER Hospital En[facility] Shaheed Constantino MD [address] [address] Other chronic pain; Radiculopathy of cervical region; manager long term care current use of opiate analgesic Social History Tobacco Use Types Packs/Day Years Used Date Smoking Tobacco: Never Sex and Gender Information Value Date Recorded Sex Assigned at Not on file Legal Sex Male 8:20 PM NAVAL AIRCREWMAN HELICOPTER Gender Identity Male 03/24/2021 7:53 PM CDT [...] (three) times a day 03/10/2016 06/08/2024 omega 0-nxg-wqq-fish oil 360-1,200 mg capsule,delayed release(DR/EC) Take 1 capsule by mouth daily 03/10/2016 05/19/2024 oxyCODONE-acetam inophen (PERCOCET) 5-325 mg per tablet 5-325 mg every 6 (six) hours as needed 11/11/2015 12/27/2018 documented as of this encounter Plan of Treatment Not on file documented as of this encounter Visit Diagnoses Diagnosis Other chronic pain Radiculopathy of cervical region senior care current use of opiate analgesic documented in this encounter
--- OUTSIDE RECORDS SUMMARY | 2024-08-07 02:28 | XMS_ITS | Encounter Summary ---
Author Organization [facility] Healthcare Address [address] [place] [address] Care Team Providers Care Uniform Maker Name Role Phone Unavailable Primary Care Provider Unavailabl e Encounter Details Date Type Department Care Team (Late st Contact Info) Description 04/07/2018 10:14 AM CDT Hospital Encounter [facility] OP Sultan Alli Gutiérrez MD [address] [facility] [address] [address] Dyspnea Social History Tobacco Use Types Packs/Day Years Used Date Smoking Tobacco: Never Sex and Gender Information Value Date Recorded Sex Assigned at Not on file 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 Gender Identity Male 03/24/2021 7:53 PM [...] (three) times a day 03/10/2016 06/08/2024 omega 9-yiz-gal-fish oil 360-1,200 mg capsule,delayed release(DR/EC) Take 1 capsule by mouth daily 03/10/2016 05/19/2024 oxyCODONE-acetam inophen (PERCOCET) 5-325 mg per tablet 5-325 mg every 6 (six) hours as needed 11/11/2015 12/27/2018 documented as of this encounter Plan of Treatment Not on file documented as of this encounter Procedures Procedure Name Priority Date/Time Associated Diagnosis Comments STRESS ECHO EXERCISE WO DOPPLER/CF Routine 04/07/2018 10:15 AM CDT CARDIOLOGY REPORT 04/07/2018 12: 00 AM CDT documented in this encounter Results * Echo Exercise Stress Test Only (04/07/2018 10:15 AM CDT) Anatomical Region Laterality Modality Echocardiography 04/07/2018 10:1 5 AM CDT Narrative 04/07/2018 1:55 PM CDT DATE OF SERVICE: 04/07/2018 INDICATIONS: ??Exertional dyspnea. The resting heart rhythm was 79, resting blood pressure 100/56. ??Resting EKG showed normal sinus rhythm, normal heart rate. He completed stages half, 1, 2 of a modified protocol and was stopped 35 seconds into stage 3 because of fatigue and shortness of breath. ??There was no chest pain. ??No ectopics. ??Blood response was normal. ??Highest heart rate 104. ??There were no ST changes. ??The recovery was uneventful. Sector scan was done in parasternal long and short axis views and apical 4 and 2-chamber views at rest and immediately after peak exercise. ??The global left ventricular systolic function at rest is normal, without any resting wall abnormalities. ??With exercise, the global left ventricular systolic function improved appropriately without developing localized wall motion abnormalities. CONCLUSIONS: 1. ??Negative stress echo for ischemia. 2. ??Average exercise capacity, functional class 2, MET level 7. ASSESSMENT AND PLAN: ??The patient had come in originally for evaluation of exertional chest pain. ??Also, complained of neck pains. ??Stress echo is negative for ischemia. ??Functional class 2, MET level 7. ??The resting echo showed normal left ventricular systolic function, no significant valve abnormality. ??The x- ray chest was unremarkable.Labs are done including the chemistries, CBC, thyroid test and electrolytes were unremarkable. ??BNP level 30, which is normal. ??These results were discussed with the patient in detail today. ??He was reassured and was given a return appointment for 2 months. NTS Job: [id number] Dictated By: Sultan Gail Gutiérrez MD Dictated For: Sultan Gail Gutiérrez MD [EOD] Procedure Note Provider, MD Yolanda - 12/04/2020 DATE OF SERVICE: 04/07/2018 INDICATIONS: Exertional dyspnea. The resting heart rhythm was 79, resting blood pressure 100/56. RestingEKG showed normal sinus rhythm, normal heart rate. He completed stages half, 1, 2 of a modified protocol and was stopped 35seconds into stage 3 because of fatigue and shortness of breath. Therewas no chest pain. No ectopics. Blood response was normal. Highestheart rate 104. There were no ST changes. The recovery was uneventful. Sector scan was done in parasternal long and short axis views and apical 4and 2-chamber views at rest and immediately after peak exercise. Theglobal left ventricular systolic function at rest is normal, without anyresting wall abnormalities. With exercise, the global left ventricularsystolic function improved appropriately without developing localized wallmotion abnormalities. CONCLUSIONS: 1. Negative stress echo for ischemia. 2. Average exercise capacity, functional class 2, MET level 7. ASSESSMENT AND PLAN: The patient had come in originally for evaluation ofexertional chest pain. Also, complained of neck pains. Stress echo isnegative for ischemia. Functional class 2, MET level 7. The resting echoshowed normal left ventricular systolic function, no significant valveabnormality. The x-ray chest was unremarkable.Labs are done including thechemistries, CBC, thyroid test and electrolytes were unremarkable. BNPlevel 30, which is normal. These results were discussed with the patientin detail today. He was reassured and was given a return appointment for2 months. NTS Job: [id number] Dictated By: Sultan Gail Gutiérrez MD Dictated For: Sultan Gail Gutiérrez MD [EOD] us Sultan Alli Gutiérrez MD CV ECHO PROCEDURES Final Resu lt * CARDIOLOGY REPORT (04/07/2018 12:00 AM CDT) Anatomical Region Laterality Modality Other Narrative 04/07/2018 12:00 AM CDT Ordered by an unspecified provider. Historical Provider [facility] ARTHUR LANGE Final Result documented in this encounter Visit Diagnoses Diagnosis Dyspnea Other dyspnea and respiratory abnormality documented in this encounter
--- OUTSIDE RECORDS SUMMARY | 2024-08-07 02:28 | XMS_ITS | Encounter Summary ---
Author Organization [facility] Healthcare Address [address] [place] [address] Care Team Providers Care Stock Raiser Name Role Phone Unavailable Primary Care Provider Unavailabl e Encounter Details Date Type Department Care Team (Latest Contact Info) Description 03/26/2016 10:24 AM CDT Hospital Encounter [facility] Lamin Ricci MD [address] [place] [id number] Low back pain; Sciatica of left side; Spondylosis of lumbar region without myelopathy or radiculopathy Social History Tobacco Use Types Packs/Day Years Used Date Smoking Tobacco: Never Assessed Sex and Gender Information Value Date Recorded Sex Assigned at Not on file 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 Gender Identity Male 03/24/2021 7:53 PM [...] (three) times a day 03/10/2016 06/08/2024 omega 8-erp-wad-fish oil 360-1,200 mg capsule,delayed release(DR/EC) Take 1 capsule by mouth daily 03/10/2016 05/19/2024 oxyCODONE-acetam inophen (PERCOCET) 5-325 mg per tablet 5-325 mg every 6 (six) hours as needed 11/11/2015 12/27/2018 documented as of this encounter Plan of Treatment Not on file documented as of this encounter Procedures Procedure Name Priority Date/Time Associated Diagnosis Comments MRI LUMBAR SPINE WO CONTRAST Routine 03/26/2016 10:35 AM CDT documented in this encounter Results * MRI Lumbar Spine WO Contrast (03/26/2016 10:35 AM CDT) Anatomical Region Laterality Modality Spine N/A Magnetic Resonan ce 03/26/2016 10:3 5 AM CDT Impressions 03/26/2016 1:16 PM CDT ?? 1. ??Severe lumbar spondylosis with facet arthropathy resulting in acquired spinal canal, lateral recess and foraminal stenosis, as detailed above. ??This is most severe at L3-4 and slightly less severe at L4-5. THIS IS AN ELECTRONICALLY VERIFIED REPORT 03/26/2016 1:10 PM: ??Jesse Dale D.O. ?? Jesse Dale D.O. :as 01:10 PM 01:10 PM [facility] [EOD] Narrative 03/26/2016 1:16 PM CDT EXAMINATION: ??MRI LUMBAR SPINE ?? HISTORY: ??Low back pain radiating to the left leg for 1 month. COMPARISON: ??None. TECHNIQUE: ??Sagittal and axial T1, T2 and sagittal STIR. FINDINGS: For purposes of this dictation, the lowest developed disc space is considered to be L5-S1. Alignment and curvature is normal. ??There is no compression fracture. ??There is severe spondylosis with desiccation, loss of disc and osteophyte formation. Several endplate Schmorl's node deformities are present as well. ??No concerning marrow replacement. The conus terminates at L1 and is unremarkable. ??No cord tethering lesions are identified. At the [...] facet arthropathy and thickening of ligamentum flavum. ??There is likely a concomitant right-sided synovial cyst emanating into the lateral aspect of the spinal canal as well. ?? In total there is severe spinal canal stenosis with effacement of both lateral recesses. ??Severe bilateral foraminal stenosis with compression of the L3 nerve roots. ??Above the level of spinal canal stenosis, the cauda equina is redundant and tortuous. At the L4-5 level there is an annular bulge with facet arthropathy and thickening of ligamentum flavum. ??This results in moderate spinal canal stenosis. ??Moderate to severe right and moderate left foraminal narrowing. At the L5-S1 level there is an annular bulge and facet arthropathy resulting in moderate to severe bilateral foraminal stenosis. ??No spinal canal stenosis. Partially imaged is a exophytic T2 hyperintense lesion from the left kidney, most likely a cyst. ??If confirmation is desired, could follow up with dedicated renal ultrasound. Procedure Note Provider, MD Yolanda - 12/04/2020 EXAMINATION: MRI LUMBAR SPINE HISTORY: Low back pain radiating to the left leg for 1 month. COMPARISON: None. TECHNIQUE: Sagittal and axial T1, T2 and sagittal STIR. FINDINGS: For purposes of this dictation, the lowest developed disc spaceis considered to be L5-S1. Alignment and curvature is normal. There is no compression fracture.There is severe spondylosis with desiccation, loss of disc and osteophyteformation. Several endplate Schmorl's node deformities are present as well. No concerning marrow replacement. The conus terminates at L1 and is unremarkable. No cord tethering lesionsare identified. At the T12-L1 level there is an annular bulge but there is no spinal canalor foraminal stenosis. At the L1-2 level there is an annular bulge but without spinal canal or foraminal stenosis. At the L2-3 level there is an annular bulge and facet hypertrophy butwithout spinal canal or foraminal stenosis. At the L3-4 level there is an annular bulge with facet arthropathy and thickening of ligamentum flavum. There is likely a concomitantright-sided synovial cyst emanating into the lateral aspect of the spinal canal aswell. In total there is severe spinal canal stenosis with effacement of bothlateral recesses. Severe bilateral foraminal stenosis with compression of the L3 nerve roots. Above the level of spinal canal stenosis, the cauda equinais redundant and tortuous. At the L4-5 level there is an annular bulge with facet arthropathy and thickening of ligamentum flavum. This results in moderate spinal canal stenosis. Moderate to severe right and moderate left foraminalnarrowing. At the L5-S1 level there is an annular bulge and facet arthropathyresulting in moderate to severe bilateral foraminal stenosis. No spinal canalstenosis. Partially imaged is a exophytic T2 hyperintense lesion from the leftkidney, most likely a cyst. If confirmation is desired, could follow up with dedicated renal ultrasound. IMPRESSION: 1. Severe lumbar spondylosis with facet arthropathy resulting in acquired spinal canal, lateral recess and foraminal stenosis, as detailed above.This is most severe at L3-4 and slightly less severe at L4-5. THIS IS AN ELECTRONICALLY VERIFIED REPORT 03/26/2016 1:10 PM: Jesse Dale D.O. Jesse Dale D.O. :as 01:10 PM 01:10 PM [facility] [EOD] Lamin Ricci MD IMG MRI PROCEDURES Final Result documented in this encounter Visit Diagnoses Diagnosis Low back pain Lumbago Sciatica of left side Spondylosis of lumbar region without myelopathy or radiculopathy documented in this encounter
--- OUTSIDE RECORDS SUMMARY | 2024-08-07 02:28 | XMS_ITS | Encounter Summary ---
Author Organization 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
--- OUTSIDE RECORDS SUMMARY | 2024-08-07 02:28 | XMS_ITS | Encounter Summary ---
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 Hospital Encounter [facility] Shaheed Constantino MD [address] [address] Brachial neuritis; Asthma; Esophageal reflux; Pure hypercholesterolemi a; Osteoarthrosis; Encounter for long-term (current) use of other medications; Encounter for long-term (current) use of aspirin Social History Tobacco Use Types Packs/Day Years Used Date Smoking Tobacco: Never Assessed Sex and Gender Information Value Date Recorded Sex Assigned at Not on file 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
--- OUTSIDE RECORDS SUMMARY | 2024-08-07 02:28 | XMS_ITS | Encounter Summary ---
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
--- OUTSIDE RECORDS SUMMARY | 2024-08-07 02:28 | XMS_ITS | Encounter Summary ---
Author Organization [facility] Facility Care Team Providers Care Wincher Name Role Phone Unavailable Primary Care Provider Unavailabl e Encounter Details Date Type Department Care Team (Latest Contact Info) Description 05/20/2016 9:21 AM CDT - 05/20/2016 11:59 PM CDT Hospital Encounter [facility] [place] [address] [place] [address] Other spondylosis, lumbar region; Other intervertebral disc degeneration, lumbar region; Other intervertebral disc degeneration, lumbosacral region; Other forms of scoliosis, lumbar region Social History Tobacco Use Types Packs/Day Years Used Date Smoking Tobacco: Never Sex and Gender Information Value Date Recorded Sex Assigned at Not on file 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 Gender Identity Male 03/24/2021 7:53 PM CDT [...] (three) times a day 03/10/2016 06/08/2024 omega 5-khw-phr-fish oil 360-1,200 mg capsule,delayed release(DR/EC) Take 1 capsule by mouth daily 03/10/2016 05/19/2024 oxyCODONE-acetam inophen (PERCOCET) 5-325 mg per tablet 5-325 mg every 6 (six) hours as needed 11/11/2015 12/27/2018 documented as of this encounter Plan of Treatment Not on file documented as of this encounter Procedures Procedure Name Priority Date/Time Associated Diagnosis Comments XR SPINE LUMBAR ROUTINE Routine 05/20/2016 9:43 AM CDT documented in this encounter Results * XR Lumbar Spine Routine (05/20/2016 9:43 AM CDT) Anatomical Region Laterality Modality L-spine N/A Radiographic Nichole ging 05/20/2016 9:43 AM CDT Narrative 05/20/2016 10:23 AM CDT LUIS SINGH M.D. BRANDEN ELDER M.D. FINAL REPORT The radiology attending physician has personally reviewed this study, and has reviewed and/or edited this written report and agrees with it. ACC# ??Date Time ??Exam [id number] May 20, 2016 09:43:00 [id number] Spine Lumbar min 4 views ACC# ??Date Time ??Exam [id number] May 20, 2016 09:43:00 [id number] Spine Lumbar min 4 views EXAMINATION: ?Lumbar spine minimum 4 views HISTORY: ??Lumbar spondylosis FINDINGS: ?? Frontal, lateral, flexion and extension views of the lumbar spine are submitted for interpretation and compared to the prior study dated 07/04/2009. There are 5 eiz-hyl-mzuxeqp lumbar vertebral bodies. Changes compatible with posterior decompression of L3-L4 are noted. There is a new mild dextrocurvature of the lumbar spine. The spine is hypomobile. There is unchanged mild retrolisthesis of L2 on L3. The retrolisthesis is unchanged with flexion or extension. There is multilevel moderate degenerative disc disease of the lumbar spine that is worst and severe at L5-S1. There are Schmorl's nodes at the superior and inferior endplates of L1-L3. The vertebral body heights are normal. There is no compression fracture. There is diffuse idiopathic skeletal hyperostosis of the lumbar spine. There is atherosclerotic calcification of the aorta. ?? IMPRESSION: 1. 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 ?? Requested By: TANMAY BROOKS M.D. Dictated By: ?? BRANDEN ELDER M.D. ??on May?2015 10:02A This document has been electronically signed by: LUIS SINGH M.D. on May?2015 10:23A [id number] Procedure Note Provider, MD Yolanda - 11/24/2016 LUIS SINGH M.D. BRANDEN ELDER M.D. FINAL REPORT The radiology attending physician has personally reviewed this study, and has reviewed and/or edited this written report and agrees with it. ACC# Date Time Exam [id number] May 20, 2016 09:43:00 [id number] Spine Lumbar min 4 views ACC# Date Time Exam [id number] May 20, 2016 09:43:00 [id number] Spine Lumbar min 4 views EXAMINATION: Lumbar spine minimum 4 views HISTORY: Lumbar spondylosis FINDINGS: Frontal, lateral, flexion and extension views of the lumbar spine are submitted for interpretation and compared to the prior study dated 07/04/2009. There are 5 ssi-uhw-tlmqiau lumbar vertebral bodies. Changes compatible with posterior decompression of L3-L4 are noted. There is a new mild dextrocurvature of the lumbar spine. The spine is hypomobile. There is unchanged mild retrolisthesis of L2 on L3. The retrolisthesis is unchanged with flexion or extension. There is multilevel moderate degenerative disc disease of the lumbar spine that is worst and severe at L5-S1. There are Schmorl's nodes at the superior and inferior endplates of L1-L3. The vertebral body heights are normal. There is no compression fracture. There is diffuse idiopathic skeletal hyperostosis of the lumbar spine. There is atherosclerotic calcification of the aorta. IMPRESSION: 1. 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 Requested By: TANMAY BROOKS M.D. Dictated By: BRANDEN ELDER M.D. on May 20 2016 10:02A This document has been electronically signed by: LUIS SINGH M.D. on May 20 2016 10:23A [id number] us Historical Provider MD AHUJA XR PROCEDURES Final R esult documented in this encounter Visit Diagnoses Diagnosis Other spondylosis, lumbar region Other intervertebral disc degeneration, lumbar region Other intervertebral disc degeneration, lumbosacral region Other forms of scoliosis, lumbar region documented in this encounter
--- OUTSIDE RECORDS SUMMARY | 2024-08-07 02:28 | XMS_ITS | Encounter Summary ---
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
--- OUTSIDE RECORDS SUMMARY | 2024-08-07 02:28 | XMS_ITS | Encounter Summary ---
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
--- OUTSIDE RECORDS SUMMARY | 2024-08-07 02:28 | XMS_ITS | Encounter Summary ---
Author Organization [facility] Healthcare Address [address] [place] [address] Care Team Providers Care Supervisor Air Conditioning Installer Name Role Phone Unavailable Primary Care Provider Unavailabl e Encounter Details Date Type Department Care Team (Latest Contact Info) Description 04/12/2018 11:33 AM CDT Hospital Encounter [facility] OP Lamin Ricci MD [address] [place] [id number] Anemia; Lipoprotein deficiency Social History Tobacco Use Types Packs/Day Years Used Date Smoking Tobacco: Never Sex and Gender Information Value Date Recorded Sex Assigned at Not on file 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 Gender Identity Male 03/24/2021 7:53 PM [...] (three) times a day 03/10/2016 06/08/2024 omega 8-iwy-mup-fish oil 360-1,200 mg capsule,delayed release(DR/EC) Take 1 capsule by mouth daily 03/10/2016 05/19/2024 oxyCODONE-acetam inophen (PERCOCET) 5-325 mg per tablet 5-325 mg every 6 (six) hours as needed 11/11/2015 12/27/2018 documented as of this encounter Plan of Treatment Not on file documented as of this encounter Procedures Procedure Name Priority Date/Time Associated Diagnosis Comments CBC WITH AUTO DIFFERENTIAL Routine 04/12/2018 11:39 AM CDT COMPREHENSIVE METABOLIC PANEL Routine 04/12/2018 11:39 AM CDT documented in this encounter Results * (ABNORMAL) CBC with auto differential (04/12/2018 11:39 AM CDT) WBC 5.3 3.5 - 10.5 x10 3/ul 04/12/2018 5:49 PM CDT [facility] [employer] HISTORICAL RESULTS RBC 4.06(L) 4.11 - 5.71 x10 6/ul 04/12/2018 5:49 PM CDT [facility] Hemoglobin 13.3 13.0 - 17.0 g/dL 04/12/2018 5:49 PM CDT [facility] RES[facility] Hct 39.5 38.2 - 48.5 % 04/12/2018 5:49 PM CDT [facility] H[facility]OR[facility] RESULTS MCV 97.3(H) 80.0 - 97.0 fl 04/12/2018 5:49 PM CDT [facility] HISTOR[facility] RESULTS MCH 32.8(H) 27.0 - 31.2 pg 04/12/2018 5:49 PM CDT [facility] HISTOR[facility] RESULTS MCHC 33.7 31.8 - 35.4 g/dl 04/12/2018 5:49 PM CDT [facility] HISTORICAL RESULTS RDW 13.1 11.6 - 14.8 % 04/12/2018 5:49 PM CDT [facility] HISTOR[facility] RESULTS Plt Count 181 150 - 450 X10 3/ul 04/12/2018 5:49 PM CDT [facility] [employer] [facility] HISTORICAL RESULTS MPV 9.9 7.4 - 10.4 fl Neut % 74.5 37.0 - 85.0 % Immature Gran % 0.2 0.0 - 3.0 % Lymph % 15.4 5.0 - 45.0 % [place] % 7.3 3.0 - 15.0 % Eos % 1.7 0.0 - 7.0 % Baso % 0.9 0.0 - 2.0 % Absolute Neuts (auto) 4.0 1.7 - 8.7 x10 3/ul Immature Gran # 0.0 0.0 - 0.3 x10 3/ul Absolute Lymphs (auto) 0.8 0.2 - 4.6 x10 3/ul Absolute Monos (auto) 0.4 0.1 - 1.5 x10 3/ul Absolute Eos (auto) 0.1 0.0 - 0.7 x10 3/ul Absolute Basos (auto) 0.1 0.0 - 0.2 x10 3/ul Nucleat RBC Rel Count 0.0 0 - 3 #/100WBC Absolute Nucleated RBC 0.00 x10 3/ul Absolute Neutrophils 4000 200 - 8000 /ul 04/12/2018 11:3 9 AM CDT 04/12/2018 5:42 PM CDT us Lamin Ricci MD LAB BLOOD ORDERABLES Final Resu lt [facility] HISTORICAL RESULTS * (ABNORMAL) Comprehensive metabolic panel (04/12/2018 11:39 AM CDT) Sodium 141 135 - 145 mmol/L Potassium 4.0 3.3 - 5.1 mmol/L Chloride 108 96 - 108 mmol/L Carbon Dioxide 21(L) 22 - 32 mmol/L Anion Gap 12 7 - 16 Glucose 79 70 - 100 mg/dL BUN 24(H) 8 - 23 mg/dL Creatinine 0.7 0.5 - 1.3 mg/dL Comment: NOTE: Estimated GFR (Cockroft-Gault) will NOT be calculated unless patient Height and Weight were entered. Also, Kidney Disease Stage (GFR) and Estimated GFR (Cockroft-Gault) will NOT be calculated if Creatinine result is <0.2. Kidney Disease Stage > 90 mL/MIN Comment: NOTE; ??The GFR is an estimated value using the creatinine, sex, age, and race of the patient. THE Estimated Kidney Disease GFR is validated for AGES 18-70 YEARS STAGE ?mL/Min ?DESCRIPTION ??1 ?90 mL/min or more ?Normal or elevated GFR ??2 ? 60-89 mL/min ?Mildly decreased GFR ??3 ? 30-59 mL/min ?Moderately decreased GFR ??4 ? 15-29 mL/min ?Severely decreased GFR ??5 ? <15 mL/min ? Kidney failure or on dialysis @ Calcium 9.6 8.8 - 10.2 mg/dL Total Protein 7.1 6.4 - 8.3 g/dL Albumin 4.3 3.5 - 5.2 g/dL Globulin 2.8 2.3 - 3.5 gm/dL Albumin/Globulin Ratio 1.5 1.1 - 1.8 Total Bilirubin 0.6 0.0 - 1.2 mg/dL AST 24 0 - 40 U/L ALT 35 0 - 41 U/L Alkaline Phosphatase 46 40 - 129 U/L 04/12/2018 11:3 9 AM CDT 04/12/2018 5:42 PM CDT us Lamin Ricci MD LAB BLOOD ORDERABLES Final Resu lt [facility] HISTORICAL RESULTS documented in this encounter Visit Diagnoses Diagnosis Anemia Unspecified anemia Lipoprotein deficiency Lipoprotein deficiencies documented in this encounter
--- OUTSIDE RECORDS SUMMARY | 2024-08-07 02:28 | XMS_ITS | Encounter Summary ---
Author Organization [facility] Healthcare Address [address] [place] [address] Care Team Providers Care Adult And Pediatric Neurologist Name Role Phone Unavailable Primary Care Provider Unavailabl e Encounter Details Date Type Department Care Team (Late st Contact Info) Description 09/14/2017 11:40 AM RESORT HOST Hospital Encounter [facility] Quinn Mtz MD [address] [place] [address] Malignant neoplasm of prostate (CMS/HCC); Other specified disorders of prostate Social History Tobacco Use Types Packs/Day Years Used Date Smoking Tobacco: Never Sex and Gender Information Value Date Recorded Sex Assigned at Not on file Legal Sex Male 8:20 PM RESORT HOST Gender Identity Male 03/24/2021 7:53 PM CDT [...] (three) times a day 03/10/2016 06/08/2024 omega 9-fpz-xmr-fish oil 360-1,200 mg capsule,delayed release(DR/EC) Take 1 capsule by mouth daily 03/10/2016 05/19/2024 oxyCODONE-acetam inophen (PERCOCET) 5-325 mg per tablet 5-325 mg every 6 (six) hours as needed 11/11/2015 12/27/2018 documented as of this encounter Plan of Treatment Not on file documented as of this encounter Procedures Procedure Name Priority Date/Time Associated Diagnosis Comments MRI PELVIS W WO CONTRAST Routine 09/14/2017 12:15 PM RESORT HOST documented in this encounter Results * MRI Pelvis W WO Contrast (09/14/2017 12:15 PM RESORT HOST) Anatomical Region Laterality Modality Pelvis N/A Magnetic Resonan ce 09/14/2017 12:1 5 PM RESORT HOST Impressions 09/15/2017 11:21 AM RESORT HOST ??PI-RADS 4 lesion measuring 1.7 x 1.2 cm in the left anterior apical peripheral zone and left anterior apical transitional zone from the 12 to 3 o'clock position, extending into the anterior fibromuscular stroma and closely approximates the prostatic urethra. ??There may be extracapsular extension left anterior apical capsule from the 12 to 2 o'clock position. Intrinsic T1 shortening in the peripheral zone of the prostate does degrade exam. ??This is no doubt related to recent biopsy. No evidence for invasion in the neurovascular bundle, seminal vesicles, or pathologic adenopathy in the pelvis. THIS IS AN ELECTRONICALLY VERIFIED FINAL REPORT 09/15/2017 11:18 AM - Electronically signed by Cathleen Samaniego M.D. : D: ??09/15/2017 11:18 AM T: ??09/15/2017 11:18 AM Report ID: [id number] Reading Location: ??[id number] [EOD] Narrative 09/15/2017 11:21 AM RESORT HOST EXAM DESCRIPTION: ??MRI prostate pre and post contrast COMPLETED DATE/TIME: ??09/14/2017 1:46 pm REASON FOR STUDY: ??RADIATION PLANNING swelling to prostate 5 months ago, treated with medication. ??Patient reports having had a negative prostate biopsy June 2017 and a positive biopsy 08/03/2017. ??Patient reports stage II Deny score of 7. ??PSA on 07/02/2017 was 6.2. COMPARISON: ??None available. TECHNIQUE: ??MRI of the pelvis performed without and with intravenous contrast according to the prostate protocol. All images stored on PACS. ??Images obtained on a 1.5 clovis MR scanner. ??No indirect coil. ??No dynamic post-contrast enhancement software. CONTRAST TYPE/DOSE: 20 ml of MultiHance contrast were intravenously injected at the right antecubital fossa without complication. FINDINGS: PROSTATE: The prostate measures 4.1 x 4.1 x 3.5 cm. ??There is mild transitional zone enlargement and cystic change indicating benign prostatic hypertrophy. The peripheral zone of the prostate is diffusely slightly hypointense on T2 and demonstrates intrinsic T1 shortening. ??This is no doubt related to patient's recent prostate biopsy with some hemorrhage in the peripheral zone. ?? This does limit evaluation of the peripheral zone. ??However, there is a focal mass in the left anterior apex of the prostate in the left anterior apical peripheral zone and left anterior apical transitional zone, extending into the anterior fibromuscular stroma.. ??It extends from the 12 to 3 o'clock location. The mass measures 1.7 by 1.2 cm and is well seen on series 1101 images 11 through 13, series 901, image 7. ??It is quite hypointense on T2 and demonstrates diffusion restriction as it is hyperintense on diffusion in very hypointense on ADC, reference series 1406, images 124 and 136. ??The mass does demonstrate hyper enhancement on the postcontrast sequence reference series 1901 images 19 through 22. ??The mass closely approximates prostatic urethra. ?? There is mild bulging of the capsule from the 12 to 2 o'clock positions as seen on series 1101, image 13. No evidence for extension to the neurovascular bundle or seminal vesicles. LYMPH NODES: No pathologically enlarged lymph nodes. ?? PELVIC SIDEWALL: Normal. No masses. BLADDER/URETHRA: The bladder is incompletely visualized but has a grossly normal appearance. MUSCULOSKELETAL: No abnormal marrow signal. ??Lumbar spondylosis is partially visualized. Procedure Note Provider, MD Yolanda - 12/04/2020 EXAM DESCRIPTION: MRI prostate pre and post contrast COMPLETED DATE/TIME: 09/14/2017 1:46 pm REASON FOR STUDY: RADIATION PLANNING swelling to prostate 5 months ago, treated with medication. Patient reports having had a negative prostate biopsy June 2017 and a positive biopsy 08/03/2017. Patient reportsstage II Deny score of 7. PSA on 07/02/2017 was 6.2. COMPARISON: None available. TECHNIQUE: MRI of the pelvis performed without and with intravenouscontrast according to the prostate protocol. All images stored on PACS. Images obtained on a 1.5 clovis MR scanner. No indirect coil. No dynamic post-contrast enhancement software. CONTRAST TYPE/DOSE: 20 ml of MultiHance contrast were intravenously injected at the right antecubital fossa without complication. FINDINGS: PROSTATE: The prostate measures 4.1 x 4.1 x 3.5 cm. There is mild transitional zone enlargement and cystic change indicating benignprostatic hypertrophy. The peripheral zone of the prostate is diffusely slightly hypointense onT2 and demonstrates intrinsic T1 shortening. This is no doubt related to patient's recent prostate biopsy with some hemorrhage in the peripheralzone. This does limit evaluation of the peripheral zone. However, there is afocal mass in the left anterior apex of the prostate in the left anterior apical peripheral zone and left anterior apical transitional zone, extending intothe anterior fibromuscular stroma.. It extends from the 12 to 3 o'clocklocation. The mass measures 1.7 by 1.2 cm and is well seen on series 1101 images 11 through 13, series 901, image 7. It is quite hypointense on T2 and demonstrates diffusion restriction as it is hyperintense on diffusion invery hypointense on ADC, reference series 1406, images 124 and 136. The massdoes demonstrate hyper enhancement on the postcontrast sequence referenceseries 1901 images 19 through 22. The mass closely approximates prostaticurethra. There is mild bulging of the capsule from the 12 to 2 o'clock positions as seen on series 1101, image 13. No evidence for extension to the neurovascular bundle or seminal vesicles. LYMPH NODES: No pathologically enlarged lymph nodes. PELVIC SIDEWALL: Normal. No masses. BLADDER/URETHRA: The bladder is incompletely visualized but has a grossly normal appearance. MUSCULOSKELETAL: No abnormal marrow signal. Lumbar spondylosis ispartially visualized. IMPRESSION: PI-RADS 4 lesion measuring 1.7 x 1.2 cm in the left anterior apical peripheral zone and left anterior apical transitional zone from the12 to 3 o'clock position, extending into the anterior fibromuscular stromaand closely approximates the prostatic urethra. There may be extracapsular extension left anterior apical capsule from the 12 to 2 o'clock position. Intrinsic T1 shortening in the peripheral zone of the prostate doesdegrade exam. This is no doubt related to recent biopsy. No evidence for invasion in the neurovascular bundle, seminal vesicles, or pathologic adenopathy in the pelvis. THIS IS AN ELECTRONICALLY VERIFIED FINAL REPORT 09/15/2017 11:18 AM - Electronically signed by Cathleen Samaniego M.D. : Report ID: [id number] Reading Location: [id number] [EOD] Quinn Jacobson MD IMG MRI PROCEDURES Final R esult documented in this encounter Visit Diagnoses Diagnosis Malignant neoplasm of prostate (HCC) Malignant neoplasm of prostate Other specified disorders of prostate documented in this encounter
--- OUTSIDE RECORDS SUMMARY | 2024-08-07 02:28 | XMS_ITS | Encounter Summary ---
Author Organization 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 Gender Identity Male 03/24/2021 7:53 PM CDT Sexual Orientation Straight 03/24/2021 7: 53 PM CDT documented as of this encounter Medications at Time of Discharge aspirin-calcium carbonate 81 mg-300 mg calcium(777 mg) tablet Take 81 mg by mouth daily 03/10/2016 3 atorvastatin (LIPITOR) 20 mg tablet TAKE ONE TABLET DAILY 90 tablet 3 11/02/2018 0 calcium-magnesiu m-zinc 333-133-5 mg tablet Take 1,200 [...] mouth 2 (two) times a day 4 naloxegol (MOVANTIK) 25 mg tabletIndication s:Constipation due to opioid therapy Take 1 tablet (25 mg total) by mouth daily 12/19/2018 9 omega 2-pzc-svh-fish oil 360-1,200 mg capsule,delayed release(DR/EC) Take 1 capsule by mouth daily 03/10/2016 4 omeprazole (PriLOSEC) 20 mg capsule TAKE 1 CAPSULE DAILY 90 capsule 3 11/18/2018 0 oxyCODONE-acetam inophen (PERCOCET) 5-325 mg per tablet 5-325 mg every 6 (six) hours as needed 11/11/2015 9 peg 400-propylene glycol (SYSTANE) 0.4-0.3 % [...] daily 4 documented as of this encounter Plan of Treatment Not on file documented as of this encounter Procedures Procedure Name Priority Date/Time Associated Diagnosis Comments XR CHEST PA LATERAL 2 VIEWS 12/19/2018 1:00 PM CDT documented in this encounter Results * XR Chest Pa Lateral 2 Views (12/19/2018 1:00 PM CDT) Anatomical Region Laterality Modality Body, Chest N/A Radiographic Nichole ging 12/19/2018 4:09 PM CDT Narrative 12/19/2018 4:10 PM CDT Patient Name: LILLIE VERA Madhu ?Ordering Dr: Lamin Ricci MD ?? D.O.B: 1940 ? Exam Date: 12/19/18 ?? 1300 ?? Age: 78 ?Sex: Male ? MR#: [id number] ?? Loc: ? RADIOLOGY REPORT ?? Order #[id number] ?? Radiology ? Chest 2 Views ? Signed ?? EXAM DESCRIPTION: ??Chest 2 Views ? REASON FOR STUDY: ??Hemoptysis x1 week ? TECHNIQUE: ??Frontal and lateral radiographic views of the chest acquired. ? COMPARISON: ??None ? FINDINGS: ? LUNGS/PLEURA: No focal consolidation or pneumothorax. No pleural effusion. ? HEART/MEDIASTINUM: Heart size is normal. Normal mediastinal and hilar contours. ? HARDWARE/LINES/TUBES: None. ? BONES: No acute findings. ? OTHER: No other significant finding. ? IMPRESSION: ??No acute cardiopulmonary abnormality. ? THIS IS AN ELECTRONICALLY VERIFIED FINAL REPORT ?? 12/19/2018 4:10 PM - Electronically signed by Jesse Orozco M.D. ?? Jesse Orozco M.D. ? AG ?? D: ??12/19/2018 4:10 PM ?? T: ? Report ID: [id number] ?? Reading Location: ??[id number] ? REPORT ELECTRONICALLY SIGNED IN OTHER VENDOR SYSTEM ?? Resulting Agency Comment O Procedure Note Jesse Orozco MD - 12/19/2018 Patient Name: LILLIE VERA Dr: Lamin Ricci MD D.O.B: 1940 Exam Date: 12/19/18 1300 Age: 78 Sex: Male MR#: [id number] Loc: RADIOLOGY REPORT Order #[id number] Radiology Chest 2 Views Signed EXAM DESCRIPTION: Chest 2 Views REASON FOR STUDY: Hemoptysis x1 week TECHNIQUE: Frontal and lateral radiographic views of the chest acquired. COMPARISON: None FINDINGS: LUNGS/PLEURA: No focal consolidation or pneumothorax. No pleuraleffusion. HEART/MEDIASTINUM: Heart size is normal. Normal mediastinal and hilarcontours. HARDWARE/LINES/TUBES: None. BONES: No acute findings. OTHER: No other significant finding. IMPRESSION: No acute cardiopulmonary abnormality. THIS IS AN ELECTRONICALLY VERIFIED FINAL REPORT 12/19/2018 4:10 PM - Electronically signed by Jesse Orozco M.D. AG T: Report ID: [id number] Reading Location: [place] [address] REPORT ELECTRONICALLY SIGNED IN OTHER VENDOR SYSTEM Lamin Ricci MD IMG XR PROCEDURES Final Result documented in this encounter Visit Diagnoses Not on filedocumented in this encounter Care Teams Shower Doors And Panels Fabricator Relationship Specialty Start Date End Date Lamin Ricci MD PCP - General Family Medicine 10/07/18 07/09/22 documented as of this encounter
--- OUTSIDE RECORDS SUMMARY | 2024-08-07 02:28 | XMS_ITS | Encounter Summary ---
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 Gender Identity Male 03/24/2021 7:53 PM CDT [...] total) by mouth daily 12/19/2018 9 omega 9-dde-tra-fish oil 360-1,200 mg capsule,delayed release(DR/EC) Take 1 [...] Diagnosis Comments CBC WITH AUTO DIFFERENTIAL Routine 01/31/2019 11:45 AM CDT APTT Routine 01/31/2019 11:45 AM CDT PROTIME-INR Routine 01/31/2019 11:45 AM CDT BASIC METABOLIC PANEL Routine 01/31/2019 11:45 AM CDT ECG 12-LEAD 01/31/2019 10:42 AM CDT URINE CULTURE Routine 01/31/2019 10:30 AM CDT documented in this encounter Results * (ABNORMAL) Basic metabolic panel (01/31/2019 11:45 AM CDT) Sodium 140 135 - 145 mmol/L [facility] Potassium 4.5 3.3 - 5.1 mmol/L [facility] Chloride 107 96 - 108 mmol/L [facility] Carbon Dioxide 26 22 - 32 mmol/L [facility] Anion Gap 7 7 - 16 [facility] Glucose 101(H) 70 - 100 mg/dL [facility] BUN 13 8 - 25 mg/dL [facility] Creatinine 0.8 0.5 - 1.3 mg/dL [facility] Comment: NOTE: Estimated GFR (Cockroft-Gault) will NOT be calculated unless patient Height and Weight were entered. Also, Kidney Disease Stage (GFR) and Estimated GFR (Cockroft-Gault) will NOT be calculated if Creatinine result is <0.2. Kidney Disease Stage >90 mL/MIN [facility] Comment: NOTE; ??The GFR is an estimated [...] mL/min ? Kidney failure or on dialysis Calcium 9.4 8.6 - 10.3 mg/dL [facility] 01/31/2019 11:4 5 AM CDT 01/31/2019 11:53 AM CDT Narrative Resulting Agency Comment CLI us Lamin Mcgraw MD LAB BLOOD ORDERABLES Ashley graham Result [facility] [address] [place] [address], [facility] [phone] * aPTT (01/31/2019 11:45 AM CDT) APTT 30 27 - 36 SECONDS [facility] Comment: New reference ranges in use 01-13-19. 01/31/2019 11:4 5 AM CDT 01/31/2019 11:53 AM CDT Narrative Resulting Agency Comment CLI Lamin Mcgraw MD LAB BLOOD ORDERABLES Ashley l Result Performing Organization Address City/[facility]/ZIP Co de Phone Number [address] [phone] * Protime-INR (01/31/2019 11:45 AM CDT) PT 13.4 12.2 - 14.8 SECONDS [facility] Comment: New reference ranges in use 01-13-19. INR 0.99 [facility] Comment: Recommended Therapeutic range for Oral Anticoagulant Therapy No anti-coagulation therapy ? Normal Range: ?0.8-1.4 Anti-coagulation therapy ? Low intensity therapy ?2.0-3.0 ? High intensity therapy ?? 2.5-3.5 Critical Value ? Greater than or equal to 5.0 Patients should be monitored for serious bleeding. 01/31/2019 11:4 5 AM CDT 01/31/2019 11:53 AM CDT Narrative Resulting Agency Comment CLI us Lamin Mcgraw MD LAB BLOOD ORDERABLES Ashley l Result Performing Organization Address City/[facility]/[place] [address], [facility] [phone] * (ABNORMAL) CBC with auto differential (01/31/2019 11:45 AM CDT) WBC 4.4 3.8 - 9.9 X10 3/ul [facility] RBC 3.79(L) 4.30 - 5.80 x10 6/ul [facility] Hemoglobin 12.5(L) 13.0 - 17.5 g/dL [facility] Hct 36.5(L) 38.9 - 50.3 % [facility] MCV 96.3 81.3 - 96.4 fl [facility] MCH 33.0 27.1 - 33.3 pg [facility] MCHC 34.2 32.3 - 35.7 g/dl [facility] RDW 12.7 11.1 - 14.9 % [facility] Plt Count 158 150 - 400 x10 3/ul [facility] MPV 9.5 9.1 - 12.3 fl [facility] Neut % 66.1 % [facility] Immature Gran % 0.2 % [facility] Lymph % 19.5 % [facility] Morton % 7.8 % [facility] Eos % 5.0 % [facility] AUTO BASO % 1.4 % [facility] NEUTROPHIL ABS # 2.9 1.7 - 6.5 x10 3/ul [facility] Immature Gran # 0.0 0.0 - 0.1 x10 3/ul [facility] Absolute Lymphs (auto) 0.9 0.8 - 3.3 x10 3/ul [facility] Absolute Monos (auto) 0.3 0.2 - 0.8 x10 3/ul [facility] Absolute Eos (auto) 0.2 0.0 - 0.5 x10 3/ul [facility] BASOPHIL ABS # 0.1 0.0 - 0.1 x10 3/ul [facility] Nucleat RBC Rel Count 0.0 #/100WBC [facility] NRBC abs 0.00 0.00 - 0.01 x10 3/ul [facility] Absolute Neutrophils 2,900 200 - 8,000 /ul [facility] 01/31/2019 11:4 5 AM CDT 01/31/2019 11:53 AM CDT Narrative Resulting Agency Comment CLI us Lamin Mcgraw MD LAB BLOOD ORDERABLES Ashley l Result Performing Organization Address [facility]/ZIP Co de Phone Number [address] [phone] * ECG 12 lead (01/31/2019 10:42 AM CDT) Ventricular Rate EKG/Min 68 BPM [facility] Atrial Rate 68 BPM [facility] CT-Interval (MSEC) 148 ms [facility] QRS-Interval (MSEC) 84 ms [facility] QT-Interval (MSEC) 416 ms [facility] QTc 442 ms [facility] P [place] -4 degrees [facility] R [place] 1 degrees [facility] T [place] 46 degrees [facility] Diagnosis Normal sinus rhythm Normal ECG No previous ECGs available [facility] 01/31/2019 10:4 2 AM CDT 01/31/2019 7:48 PM CDT Narrative Resulting Agency Comment OUTPAT us Parth Lvoe MD ECG ORDERABLES Final Re sult Performing Organization Address [facility] Co de Phone Number [address] * Urine culture Urine, clean voided (01/31/2019 10:30 AM CDT) CULTURE URINE NO GROWTH DAY 2 <1,000 CFU/ML [facility] Urine, clean voided 01/31/2019 10:30 AM CDT 01/31/2019 3:28 PM CDT Narrative [facility] - 02/02/2019 7:59 AM CDT Collected By ra Comment per Dr. Mcgraw Urine collection method Clean catch Indication(s) for ordering ?? Other - enter in comments Resulting Agency Comment Collected By ra ??Comment ?per Dr. Mcgraw ??Urine collection method Clean catch ??Indication(s) for ordering ? Other - enter in comments ?? us Lamin Mcgraw MD LAB MICROBIOLOGY - GENERA L ORDERABLES Final Result Performing Organization Address City/State/[facility] [place] [address], [facility] [phone] documented in this encounter Visit Diagnoses Not on filedocumented in this encounter Care Teams Hot Bread Baker Relationship Specialty Start Date End Date Lamin Ricci MD PCP - General Family Medicine 10/07/18 07/09/22 documented as of this encounter
--- OUTSIDE RECORDS SUMMARY | 2024-08-07 02:28 | XMS_ITS | Encounter Summary ---
Author Organization 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 - 06/16/2010 7:01 PM [facility] [place] [address] [place] [id number] Central nervous system complication; Other nervous system complications; Disorders of meninges, not elsewhere classified; Other specified surgical operation and procedure causing abnormal patient reaction or later complication; Place of occurrence, home; Other and unspecified hyperlipidemia; Arthropathy; Asthma; Migraine Social History Tobacco Use Types Packs/Day Years Used Date Smoking Tobacco: Never Assessed Sex and Gender Information Value Date Recorded Sex Assigned at Not on file Legal Sex Male 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 Gender Identity Male 03/24/2021 7:53 PM CDT Sexual Orientation Straight 03/24/2021 7: 53 PM CDT documented as of this encounter Plan of Treatment Not on file documented as of this encounter Visit Diagnoses Diagnosis Central nervous system complication Other nervous system complications Disorders of meninges, not elsewhere classified Other specified surgical operation and procedure causing abnormal patient reaction or later complication Place of occurrence, home Other and unspecified hyperlipidemia Arthropathy Unspecified arthropathy, site unspecified Asthma Unspecified asthma Migraine Migraine, unspecified, without mention of intractable migraine without mention of status migrainosus documented in this encounter
--- OUTSIDE RECORDS SUMMARY | 2024-08-07 02:28 | XMS_ITS | Encounter Summary ---
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); Dizziness; Leg weakness, bilateral Social History Tobacco Use Types Packs/Day Years [...] file 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 Gender Identity Male 03/24/2021 7:53 PM CDT Sexual Orientation Straight 03/24/2021 7: 53 PM CDT documented as of this encounter Last Filed Vital Signs Vital Sign Reading Time Taken Comments Blood Pressure 122/80 10/19/2018 12:35 PM CDT Pulse 68 10/19/2018 12:35 PM CDT Temperature 36.9 ??C (98.5 ??F) 10/19/2018 12:35 PM C DT Respiratory Rate 18 10/19/2018 12:35 PM CDT Oxygen Saturation - - Inhaled Oxygen Concentration - - Weight 73.5 kg (162 lb) 10/19/2018 12:35 PM CDT Height 177.8 cm (5' 10 ) 10/19/2018 12:35 PM CDT Body Mass Index 23.24 10/19/2018 12:35 PM CDT documented in this encounter Ordered Prescriptions Prescription Sig Dispense Quantity Refills Last Filled Start Date End Date oxyCODONE-acetamin ophen (PERCOCET) 5-325 mg per tabletIndications: Chronic bilateral low back pain with bilateral sciatica Take 1 tablet by mouth every 6 (six) hours as needed for pain 30 tablet 10/19/2018 11/18/2018 documented in this encounter Progress Notes * Lamin Ricci MD - 10/19/2018 10:30 AM CDT Subjective/Objective Patient ID: Gulshan Johnston is a 78 y.o. male. Visit Date: 10/19/2018 Chief Complaint Dizziness HPI Returns to the office for repeat evaluation. States that the appetite is returning and states that he is getting better. Also continues to have the dizziness and states that he is taking his meds as directed. Using the treadmill at home. States that he pain is controlled. Review of Systems Constitutional: Negative for activity [...] The patient is not nervous/anxious. Physical Exam Constitutional: He is oriented to person, place, and time. He appears well- developed and well-nourished. No distress. HENT: Head: Normocephalic. Right Ear: External ear normal. Left Ear: External ear normal. Mouth/Throat: Oropharynx is clear and moist. Eyes: Pupils are equal, round, and reactive to light. Conjunctivae are normal. Neck: Neck supple. No thyromegaly present. ROM appropriate Cardiovascular: Normal rate, regular rhythm and normal heart sounds. Exam reveals no gallop and no friction rub. No murmur heard. Pulmonary/Chest: Effort normal and breath sounds normal. Abdominal: Soft. Bowel sounds are normal. He exhibits no distension. There is no tenderness. Musculoskeletal: Bilateral quadracepts weakness Neurological: He is alert and oriented to person, place, and time. Skin: Skin is warm and dry. Capillary refill takes less than 2 seconds. Psychiatric: He has a normal mood and affect. His behavior is normal. Vitals reviewed. Assessment/Plan Diagnoses and all orders for this visit: Dizziness (R42) (Primary) Comments: continue exercise Leg weakness, bilateral (R29.898) Comments: continue exercise Chronic bilateral low back pain with bilateral sciatica (M54.42, M54.41, G89.29) Comments: refill pain meds. Lamin Ricci MD documented in this encounter Plan of Treatment Not on file documented as of this encounter Visit Diagnoses Diagnosis Chronic bilateral low back pain with bilateral sciatica- Primary Dizziness Dizziness and giddiness Leg weakness, bilateral Muscle weakness (generalized) documented in this encounter Discontinued Medications Medication Sig Discontinue Reason Start Date End Da te triamcinolone (KENALOG) 0.1 % cream 0.1 % 2 (two) times a day Alternate therapy 10/19/2018 oxyCODONE-acetaminophen (PERCOCET) 5-325 mg per tablet Take 1 tablet by mouth every 6 (six) hours as needed for pain Reorder 09/30/2018 10/19/2018 documented as of this encounter Historical Medications * This list may reflect changes made after this encounter. VENTOLIN HFA 90 mcg/actuation inhaler Inhale 2 puffs every 4 (four) hours as needed for wheezing or shortness of breath 08/04/2018 0 aspirin-calcium carbonate 81 mg-300 mg calcium(777 mg) tablet Take 81 mg by mouth daily 03/10/2016 3 atorvastatin (LIPITOR) 20 mg tablet Take 20 mg by mouth daily 07/16/2018 9 calcium-magnesiu m-zinc 333-133-5 mg tablet Take [...] 1 tablet by mouth daily 10/06/2018 3 selenium 200 mcg tablet Take 1 tablet by mouth daily 3 omega 4-xwy-uzn-fish oil 360-1,200 mg capsule,delayed release(DR/EC) Take 1 capsule by mouth daily 03/10/2016 4 omeprazole (PriLOSEC) 20 mg capsule Take 20 mg by mouth daily 08/19/2018 9 oxyCODONE-acetam inophen (PERCOCET) 5-325 mg per tablet Take 1 tablet by mouth every 6 (six) hours as needed for pain 09/30/2018 9 vitamin b complex (Vitamins B Complex) tablet Take 1 tablet by mouth daily 4 triamcinolone (KENALOG) 0.1 % cream 0.1 % 2 (two) times a day 9 tamsulosin (FLOMAX) 0.4 mg extended release capsule Take 0.4 mg by mouth daily 08/19/2018 3 added in this encounter Care Teams Data Scientist Relationship Specialty Start Date End Date Lamin Ricci MD PCP - General Family Medicine 10/07/18 07/09/22 documented as of this encounter
--- OUTSIDE RECORDS SUMMARY | 2024-08-07 02:28 | XMS_ITS | Encounter Summary ---
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
--- OUTSIDE RECORDS SUMMARY | 2024-08-07 02:28 | XMS_ITS | Encounter Summary ---
Author Organization [facility] Address [address] [place] [address] Care Team Providers Care Brickmason Apprentice Name Role Phone Lamin Ricci MD Primary Care Provider [phone] Reason for Visit * Reason Comments Constipation x3 days Cough w/ a hint of blood Encounter Details Date Type Department Care Team ([facility] st Contact Info) Description 12/19/2018 11:15 AM CDT Office Visit [facility] Family Medicine [address] [place] [address] Lamin Ricci MD [address] [place] [address] [address] [place] [address] Hemoptysis (Primary Dx); Lumbar back pain; Constipation due to opioid therapy; Immunity status testing Social History Tobacco Use Types Packs/Day Years [...] on file Legal 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 Gender Identity Male 03/24/2021 7:53 PM CDT Sexual Orientation Straight 03/24/2021 7: 53 PM CDT documented as of this encounter Last Filed Vital Signs Vital Sign Reading Time Taken Comments Blood Pressure 118/76 12/19/2018 12:11 PM CDT Pulse 79 12/19/2018 12:11 PM CDT Temperature 37 ??C (98.6 ??F) 12/19/2018 12:11 PM CDT Respiratory Rate 18 12/19/2018 12:11 PM CDT Oxygen Saturation 98% 12/19/2018 12:11 PM CDT Inhaled Oxygen Concentration - - Weight 75.3 kg (166 lb) 12/19/2018 12:11 PM CDT Height 177.8 cm (5' 10 ) 12/19/2018 12:11 PM CDT Body Mass Index 23.82 12/19/2018 12:11 PM CDT documented in this encounter Ordered Prescriptions Prescription Sig Dispense Quantity Refills Last Filled Start Date End Date naloxegol (MOVANTIK) 25 mg tabletIndications: Constipation due to opioid therapy Take 1 tablet (25 mg total) by mouth daily 12/19/2018 02/15/2019 documented in this encounter Progress Notes * Lamin Ricci MD - 12/19/2018 11:15 AM CDT Subjective/Objective Patient ID: Gulshan Johnston is a 78 y.o. male. Visit Date: 12/19/2018 Chief Complaint Constipation (x3 days ) and Cough ( w/ a hint of blood ) HPI Returns to the office for repeat evaluation. States that he continues to have the constipation and also has a cough. Coughing up a hint of blood. Taking his meds directed. Did have an enema and it helped the constipation. Denies any other complaints. Review of Systems Constitutional: Negative for activity change. HENT: Negative for congestion. Eyes: Negative for visual disturbance. Respiratory: Positive [...] Pulmonary/Chest: Effort normal and breath sounds normal. Cough of blood Abdominal: Soft. Bowel sounds are normal. He exhibits no distension. There is no tenderness. constipation Musculoskeletal: ROM appropriate Neurological: He is alert and oriented to person, place, and time. Skin: Skin is warm and dry. Capillary refill takes less than 2 seconds. Psychiatric: He has a normal mood and affect. His behavior is normal. Vitals reviewed. Assessment/Plan Diagnoses and all orders for this visit: Hemoptysis (R04.2) (Primary) Comments: cxr Lumbar back pain (M54.5) Comments: refill meds. Constipation due to opioid therapy (K59.03, T40.2X5A) Comments: mayelin Ricci MD documented in this encounter Plan of Treatment Not on file documented as of this encounter Procedures Procedure Name Priority Date/Time Associated Diagnosis Comments RUBELLA IGG Routine 12/19/2018 1:55 PM CDT Immunity status testing documented in this encounter Results * Rubella IgG (12/19/2018 1:55 PM CDT) Rubella IgG 25.30 index [facility] [place] Comment: ?Index ?Interpretation ?----- ?<0.90 ?Not consistent with Immunity ?0.90-0.99 ?Equivocal ?> or = 1.00 ?Consistent with Immunity The presence of rubella IgG antibody suggests immunization or past or current infection with rubella virus. Blood specimen (specimen) 12/19/2018 1:55 PM CDT 12/19/2018 1:55 PM CDT Narrative Resulting Agency Comment Performing Organization Information: ?Site ID: [id number] ?Name: [facility] ?Address: [address] [place] [address] ?Director: Emiliano Ho D.O., MPH us Lamin Ricci MD LAB MICROBIOLOGY - [facility] Final Result [facility] [place] documented in this encounter Visit Diagnoses Diagnosis Hemoptysis- Primary Lumbar back pain Lumbago Constipation due to opioid therapy Immunity status testing Antibody response examination documented in this encounter Historical Medications * This list may reflect changes made after this encounter. phenylephrine (RENETTA-SYNEPHRINE) 1 % spray,non-aeroso l 2-3 sprays every 4 (four) hours as needed 3 peg 400-propylene glycol (SYSTANE) 0.4-0.3 % ophthalmic solution Administer 1 drop into both eyes as needed 4 lecithin 1,200 mg capsule Take 1 capsule by mouth 2 (two) times a day 4 ketoconazole (NIZORAL) 2 % cream APPLY TWICE DAILY TO GROIN AND BUTTOCK RASH FOR 4 WEEKS 2 11/19/2018 1 triamcinolone (KENALOG) 0.1 % cream 1 application 2 (two) times a day 3 oxyCODONE-acetam inophen (PERCOCET) 5-325 mg per tablet 5-325 mg every 6 (six) hours as needed 11/11/2015 9 added in this encounter Care Teams Brickmason Apprentice Relationship Specialty Start Date End Date Lamin Ricci MD PCP - General Family Medicine 10/07/18 07/09/22 documented as of this encounter
--- OUTSIDE RECORDS SUMMARY | 2024-08-07 02:28 | XMS_ITS | Encounter Summary ---
Author Organization 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
--- OUTSIDE RECORDS SUMMARY | 2024-08-07 02:28 | XMS_ITS | Encounter Summary ---
Author Organization 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
--- OUTSIDE RECORDS SUMMARY | 2024-08-07 02:28 | XMS_ITS | Encounter Summary ---
Author Organization [facility] Address [address] [place] [address] Care Team Providers Care Flue Blower Name Role Phone Lamin Ricci MD Primary Care Provider [phone] Reason for Visit * Reason Comments Follow-up cough,constipation Nasal Congestion Facial Pain Encounter Details Date Type Department Care Team (Late st Contact Info) Description 01/16/2019 11:15 AM CDT Office Visit [facility] Family Medicine [address] [place] [address] Lamin Ricci MD [address] [place] [address] [address] [place] [address] Acute non-recurrent frontal sinusitis (Primary Dx); Gastro-esophageal reflux disease without esophagitis; Drug-induced constipation Social History Tobacco Use Types [...] on file 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 Gender Identity Male 03/24/2021 7:53 PM CDT Sexual Orientation Straight 03/24/2021 7: 53 PM CDT documented as of this encounter Last Filed Vital Signs Vital Sign Reading Time Taken Comments Blood Pressure 112/70 01/16/2019 12:20 PM CDT Pulse 75 01/16/2019 12:20 PM CDT Temperature 37.2 ??C (98.9 ??F) 01/16/2019 12:20 PM C DT Respiratory Rate 18 01/16/2019 12:20 PM CDT Oxygen Saturation 97% 01/16/2019 12:20 PM CDT Inhaled Oxygen Concentration - - Weight 74.8 kg (165 lb) 01/16/2019 12:20 PM CDT Height 177.8 cm (5' 10 ) 01/16/2019 12:20 PM CDT Body Mass Index 23.68 01/16/2019 12:20 PM CDT documented in this encounter Ordered Prescriptions Prescription Sig Dispense Quantity Refills Last Filled Start Date End Date azithromycin (ZITHROMAX) 250 mg tabletIndications: Acute non-recurrent frontal sinusitis Take 2 tabs (500 mg) by mouth today, than 1 daily for 4 days. 6 tablet 01/16/2019 9 methylPREDNISolone (MEDROL DOSEPACK) 4 mg DosepackIndication s:Acute non-recurrent frontal sinusitis Take as directed on package. 21 tablet 01/16/2019 9 documented in this encounter Progress Notes * Lamin Ricci MD - 01/16/2019 11:15 AM CDT Subjective/Objective Patient ID: Gulshan Johnston is a 78 y.o. male. Visit Date: 01/16/2019 Chief Complaint Follow-up (cough,constipation ); Nasal Congestion; and Facial Pain HPI Returns to the office with cc of sinus drainage and congestion that started over the past week and has been getting worse. States that he has a large amount of nasal congestion and facial pain. States that he continues with the constipation but is stable and the meds are working. Also stats that the gerd is under control and the meds are working. Taking his meds as directed Review of Systems Constitutional: Negative for activity change. HENT: Positive for congestion and sinus pain. Eyes: Negative for visual disturbance. Respiratory: Negative [...] normal. Mouth/Throat: Oropharynx is clear and moist. Nasal congestion cobblestoning in the pop and cough with frontal sinus pain Eyes: Pupils are equal, round, and reactive to light. Conjunctivae are normal. Neck: Neck supple. No thyromegaly present. ROM appropriate Cardiovascular: Normal rate, regular rhythm and normal heart sounds. Exam reveals no gallop and no friction rub. No murmur heard. Pulmonary/Chest: Effort normal and breath sounds normal. Abdominal: Soft. Bowel sounds are normal. He exhibits no distension. There is no tenderness. Musculoskeletal: ROM appropriate Neurological: He is alert and oriented to person, place, and time. Skin: Skin is warm and dry. Capillary refill takes less than 2 seconds. Psychiatric: He has a normal mood and affect. His behavior is normal. Vitals reviewed. Assessment/Plan Diagnoses and all orders for this visit: Acute non-recurrent frontal sinusitis (J01.10) (Primary) Comments: condtion acute. z pack and medrol dose pack Gastro-esophageal reflux disease without esophagitis (K21.9) Comments: condtion chronic stable. refill meds. 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 refill meds. Lamin Ricci MD documented in this encounter Miscellaneous Notes * Addendum Note - Sierra Portillo RN - 01/16/2019 11:15 AM CDTAddended by: SIERRA PORTILLO on: 01/16/2019 05:49 PM Modules accepted: Orders documented in this encounter Plan of Treatment Not on file documented as of this encounter Visit Diagnoses Diagnosis Acute non-recurrent frontal sinusitis- Primary Gastro-esophageal reflux disease without esophagitis Drug-induced constipation Other constipation documented in this encounter Care Teams Flue Blower Relationship Specialty Start Date End Date Lamin Ricci MD PCP - General Family Medicine 10/07/18 07/09/22 documented as of this encounter
--- OUTSIDE RECORDS SUMMARY | 2024-08-07 02:28 | XMS_ITS | Encounter Summary ---
Author Organization [facility] Healthcare Address [address] [place] [address] Care Team Providers Care Weaving Loom Operator Name Role Phone Unavailable Primary Care Provider Unavailabl e Encounter Details Date Type Department Care Team (Latest Contact Info) Description 01/22/2017 10:25 AM CDT Hospital Encounter [facility] OP Lali Young, KATHY [address] [facility] [address] [address] Pain in left shoulder; Primary osteoarthritis of left shoulder Social History Tobacco Use Types Packs/Day Years Used Date Smoking Tobacco: Never Sex and Gender Information Value Date Recorded Sex Assigned at Not on file Legal Sex Male 8: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 VOICE PATHOLOGIST Gender Identity Male 03/24/2021 7:53 PM CDT [...] (three) times a day 03/10/2016 06/08/2024 omega 1-fxz-wki-fish oil 360-1,200 mg capsule,delayed release(DR/EC) Take 1 capsule by mouth daily 03/10/2016 05/19/2024 oxyCODONE-acetam inophen (PERCOCET) 5-325 mg per tablet 5-325 mg every 6 (six) hours as needed 11/11/2015 12/27/2018 documented as of this encounter Plan of Treatment Not on file documented as of this encounter Procedures Procedure Name Priority Date/Time Associated Diagnosis Comments XR SHOULDER LEFT 2 OR MORE VIEWS Routine 01/22/2017 10:27 AM CDT documented in this encounter Results * XR Shoulder Left 2 or More Views (01/22/2017 10:27 AM CDT) Anatomical Region Laterality Modality Upper Extremities, Shoulder Left Radi ographic Imaging 01/22/2017 10:2 7 AM CDT Impressions 01/22/2017 10:53 AM CDT ?? 1. ??Mild degenerative changes without acute osseous abnormality in the left shoulder THIS IS AN ELECTRONICALLY VERIFIED REPORT 01/22/2017 10:49 AM: ??Aaliyah Centeno M.D. ?? Aaliyah Centeno M.D. TB:ck 10:49 AM 10:49 AM [facility] [EOD] Narrative 01/22/2017 10:53 AM CDT EXAMINATION: ??Left shoulder 3 views HISTORY: Left shoulder pain which radiates down the left humerus. ??Symptoms for 2 months. ??No recent trauma TECHNIQUE: ??AP internal rotation, true AP and scapular Y views were performed. COMPARISON: ??None FINDINGS: ??The acromioclavicular joint is well maintained. ??There are degenerative changes noted, with mild narrowing at the glenohumeral joint. ?? There are mild degenerative changes of great tuberosity. ??There is no acute fracture or dislocation. ??No aggressive appearing osseous lesion. ??Visualized left ribs are intact. ??The included portion of the left lung is clear. Procedure Note Provider, MD Yolanda - 12/04/2020 EXAMINATION: Left shoulder 3 views HISTORY: Left shoulder pain which radiates down the left humerus.Symptoms for 2 months. No recent trauma TECHNIQUE: AP internal rotation, true AP and scapular Y views wereperformed. COMPARISON: None FINDINGS: The acromioclavicular joint is well maintained. There are degenerative changes noted, with mild narrowing at the glenohumeral joint. There are mild degenerative changes of great tuberosity. There is noacute fracture or dislocation. No aggressive appearing osseous lesion.Visualized left ribs are intact. The included portion of the left lung is clear. IMPRESSION: 1. Mild degenerative changes without acute osseous abnormality in theleft shoulder THIS IS AN ELECTRONICALLY VERIFIED REPORT 01/22/2017 10:49 AM: Aaliyah Centeno M.D. Aaliyah Centeno M.D. TB:ck 10:49 AM 10:49 AM [facility] [EOD] Lali CHAVEZ IMG XR PROCEDURES Final Result documented in this encounter Visit Diagnoses Diagnosis Pain in left shoulder Primary osteoarthritis of left shoulder documented in this encounter
--- OUTSIDE RECORDS SUMMARY | 2024-08-07 02:28 | XMS_ITS | Encounter Summary ---
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
--- OUTSIDE RECORDS SUMMARY | 2024-08-07 02:28 | XMS_ITS | Encounter Summary ---
Author Organization [facility] Healthcare Address [address] [place] [address] Care Team Providers Care Supervisor Dry Paste Name Role Phone Unavailable Primary Care Provider Unavailabl e Encounter Details Date Type Department Care Team (Late st Contact Info) Description 04/01/2018 10:06 AM CDT Hospital Encounter [facility] OP Sultan Alli Gutiérrez MD [address] [facility] [address] [address] Dyspnea Social History Tobacco Use Types Packs/Day Years Used Date Smoking Tobacco: Never Sex and Gender Information Value Date Recorded Sex Assigned at Not on file Legal Sex Male 8:20 PM PRIVATE CLIENT ADVISOR Gender Identity Male 03/24/2021 7:53 PM CDT [...] (three) times a day 03/10/2016 06/08/2024 omega 4-ogo-smy-fish oil 360-1,200 mg capsule,delayed release(DR/EC) Take 1 capsule by mouth daily 03/10/2016 05/19/2024 oxyCODONE-acetam inophen (PERCOCET) 5-325 mg per tablet 5-325 mg every 6 (six) hours as needed 11/11/2015 12/27/2018 documented as of this encounter Plan of Treatment Not on file documented as of this encounter Procedures Procedure Name Priority Date/Time Associated Diagnosis Comments TRANSTHORACIC ECHO (TTE) COMPLETE W DOPPLER/CF Routine 04/01/2018 10:00 AM CDT CARDIOLOGY REPORT 04/01/2018 12: 00 AM CDT documented in this encounter Results * Transthoracic Echo Complete W Doppler/CF (04/01/2018 10:00 AM CDT) Anatomical Region Laterality Modality Ultrasound 04/01/2018 10:0 0 AM CDT Narrative 04/01/2018 5:38 PM CDT Results viewable in EMR, Cardiovascular [EOD] Procedure Note Provider, Yoladna, - 12/04/2020 Results viewable in EMR, Cardiovascular [EOD] Sultan Alli Gutiérrez MD CV ECHO PROCEDURES Final Resu lt * CARDIOLOGY REPORT (04/01/2018 12:00 AM CDT) Anatomical Region Laterality Modality Other Narrative 04/01/2018 12:00 AM CDT Ordered by an unspecified provider. Historical Provider [facility] ARTHUR LANGE Final Result documented in this encounter Visit Diagnoses Diagnosis Dyspnea Other dyspnea and respiratory abnormality documented in this encounter
--- OUTSIDE RECORDS SUMMARY | 2024-08-07 02:29 | XMS_ITS | Encounter Summary ---
Author Organization [facility] Facility Care Team Providers Care Home Inspector Name Role Phone Unavailable Primary Care Provider Unavailabl e Encounter Details Date Type Department Care Team (Latest Contact Info) Description 06/10/2009 6:00 AM WINE STEWARD/STEWARDESS - 06/10/2009 4:00 PM [facility] Hospital Encounter [facility] [place] [address] [place] [id number] Degeneration of lumbar or lumbosacral intervertebral disc; Displacement of lumbar intervertebral disc without myelopathy; Other chronic pain; Lumbosacral spondylosis without myelopathy; Spinal stenosis of lumbar region without neurogenic claudication Social History Tobacco Use Types Packs/Day Years Used Date Smoking Tobacco: Never Assessed Sex and Gender Information Value Date Recorded Sex Assigned at Not on file Legal Sex Male 8:20 PM WINE STEWARD/STEWARDESS Gender Identity Male 03/24/2021 7:53 PM CDT Sexual Orientation Straight 03/24/2021 7: 53 PM CDT documented as of this encounter Plan of Treatment Not on file documented as of this encounter Visit Diagnoses Diagnosis Degeneration of lumbar or lumbosacral intervertebral disc Displacement of lumbar intervertebral disc without myelopathy Other chronic pain Lumbosacral spondylosis without myelopathy Spinal stenosis of lumbar region without neurogenic claudication documented in this encounter
--- OUTSIDE RECORDS SUMMARY | 2024-08-07 02:29 | XMS_ITS | Encounter Summary ---
Author Organization [facility] Facility Care Team Providers Care Synthetic Plasterer Name Role Phone Unavailable Primary Care Provider Unavailabl e Encounter Details Date Type Department Care Team (Latest Contact Info) Description 07/16/2009 3:28 PM NAILHEAD PUNCHER - 07/16/2009 4:00 PM NAILHEAD PUNCHER Hospital Encounter [facility] [address] [place] [phone] Other specified pre-operative examination; Spinal stenosis, other than cervical; Other and unspecified hyperlipidemia; Obesity; Essential hypertension Social History Tobacco Use Types Packs/Day Years Used Date Smoking Tobacco: Never Assessed Sex and Gender Information Value Date Recorded Sex Assigned at Not on file Legal Sex Male 8:20 PM NAILHEAD PUNCHER Gender Identity Male 03/24/2021 7:53 PM CDT Sexual Orientation Straight 03/24/2021 7: 53 PM CDT documented as of this encounter Plan of Treatment Not on file documented as of this encounter Visit Diagnoses Diagnosis Other specified pre-operative examination Spinal stenosis, other than cervical Other and unspecified hyperlipidemia Obesity Obesity, unspecified Essential hypertension Unspecified essential hypertension documented in this encounter
--- OUTSIDE RECORDS SUMMARY | 2024-08-07 02:29 | XMS_ITS | Encounter Summary ---
Author Organization [facility] Facility Care Team Providers Care Finisher Machine Name Role Phone Unavailable Primary Care Provider Unavailabl e Encounter Details Date Type Department Care Team (Late st Contact Info) Description 05/23/2010 3:55 PM CDT - 05/23/2010 4:00 PM CDT [facility] [place] [address] [place] [phone] Other specified pre-operative examination Social History Tobacco Use Types Packs/Day Years Used Date Smoking Tobacco: Never Assessed Sex and Gender Information Value Date Recorded Sex Assigned at Not on file Legal Sex Male 8:20 PM FRUIT TRIMMER Gender Identity Male 03/24/2021 7:53 PM CDT Sexual Orientation Straight 03/24/2021 7: 53 PM CDT documented as of this encounter Plan of Treatment Not on file documented as of this encounter Visit Diagnoses Diagnosis Other specified pre-operative examination documented in this encounter
--- OUTSIDE RECORDS SUMMARY | 2024-08-07 02:29 | XMS_ITS | Encounter Summary ---
Author Organization [facility] Facility Care Team Providers Care Finger Lift Operator Name Role Phone Unavailable Primary Care Provider Unavailabl e Encounter Details Date Type Department Care Team (Latest Contact Info) Description 07/22/2009 8:01 AM CLINICIAN ONCOLOGY - 07/23/2009 10:16 AM CLINICIAN ONCOLOGY Hospital Encounter [facility] [place] [place] [address] [place] [phone] Spinal stenosis of lumbar region without neurogenic claudication; Other and unspecified hyperlipidemia Social History Tobacco Use Types Packs/Day Years Used Date Smoking Tobacco: Never Assessed Sex and Gender Information Value Date Recorded Sex Assigned at Not on file Legal Sex Male 8:20 PM CLINICIAN ONCOLOGY Gender Identity Male 03/24/2021 7:53 PM CDT Sexual Orientation Straight 03/24/2021 7: 53 PM CDT documented as of this encounter Plan of Treatment Not on file documented as of this encounter Visit Diagnoses Diagnosis Spinal stenosis of lumbar region without neurogenic claudication Other and unspecified hyperlipidemia documented in this encounter
--- OUTSIDE RECORDS SUMMARY | 2024-08-07 02:29 | XMS_ITS | Encounter Summary ---
Author Organization [facility] Facility Care Team Providers Care President Finance Company Name Role Phone Unavailable Primary Care Provider Unavailabl e Encounter Details Date Type Department Care Team (Latest Contact Info) Description 12/06/2008 4:48 PM CDT - 07/18/2009 11:59 PM RESIDENTIAL GAS HEAT TECHNICIAN Hospital [facility] Other chronic pain; Lumbosacral spondylosis without myelopathy; Degeneration of lumbar or lumbosacral intervertebral disc; Spinal stenosis of lumbar region without neurogenic claudication Social History Tobacco Use Types Packs/Day Years Used Date Smoking Tobacco: Never Assessed Sex and Gender Information Value Date Recorded Sex Assigned at Not on file Legal Sex Male 8:20 PM RESIDENTIAL GAS HEAT TECHNICIAN Gender Identity Male 03/24/2021 7:53 PM CDT Sexual Orientation Straight 03/24/2021 7: 53 PM CDT documented as of this encounter Plan of Treatment Not on file documented as of this encounter Visit Diagnoses Diagnosis Other chronic pain 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
--- OUTSIDE RECORDS SUMMARY | 2024-08-07 02:29 | XMS_ITS | Encounter Summary ---
Author Organization [facility] Facility Care Team Providers Care Boat Fueler Name Role Phone Unavailable Primary Care Provider Unavailabl e Encounter Details Date Type Department Care Team (Latest Contact Info) Description 07/04/2009 - 07/04/2009 11:59 PM CORE CLEANER Hospital Encounter [facility] [place] [address] [place] [address] Degeneration of lumbar or lumbosacral intervertebral disc Social History Tobacco Use Types Packs/Day Years Used Date Smoking Tobacco: Never Assessed Sex and Gender Information Value Date Recorded Sex Assigned at Not on file Legal Sex Male 8:20 PM CORE CLEANER Gender Identity Male 03/24/2021 7:53 PM CDT Sexual Orientation Straight 03/24/2021 7: 53 PM CDT documented as of this encounter Plan of Treatment Not on file documented as of this encounter Visit Diagnoses Diagnosis Degeneration of lumbar or lumbosacral intervertebral disc documented in this encounter
== END 2024-07-31 03:24 ==
PROVIDERS: Emergency Provider Emergency Medicine
DX: S00.211A Abrasion of right eyelid and periocular area, initial encounter (principal); R31.9 Hematuria, unspecified; F03.90 Unspecified dementia, unspecified severity, without behavioral disturbance, psychotic disturbance, mood disturbance, and anxiety; I10 Essential (primary) hypertension; J45.909 Unspecified asthma, uncomplicated; E78.5 Hyperlipidemia, unspecified; K21.9 Gastro-esophageal reflux disease without esophagitis; M81.0 Age-related osteoporosis without current pathological fracture; M19.90 Unspecified osteoarthritis, unspecified site; G91.2 (Idiopathic) normal pressure hydrocephalus; F41.9 Anxiety disorder, unspecified; Z85.46 Personal history of malignant neoplasm of prostate; Z79.899 Other long term (current) drug therapy; M47.812 Spondylosis without myelopathy or radiculopathy, cervical region; G31.9 Degenerative disease of nervous system, unspecified; W18.30XA Fall on same level, unspecified, initial encounter
CPT/HCPCS: 51702; 70450; 72125; 73130; 81001; 87077; 87086; 87186; 99284